=== PATIENT | female | born 1950 | race Caucasian/White ===

== ENCOUNTER 2016-08-28 16:12 | Emergency (ER) | payer BC ==
--- NOTE | 2016-08-28 16:58 | ED Physician Documentation ---
PD HPI DYSPNEA - Stated complaint Stated Complaint: SOA - Chief complaint Chief Complaint: Resp - History obtained from History obtained from: Patient - History of Present Illness Timing - onset: How many days ago (10) Timing - onset during: Light activity Timing - duration: Days (10) Timing - details: Gradual onset Inciting event(s): URI Improved by: O2 (at home, has usual use 2 lpm at night, but can use it during day if she wants.), Inhaler/neb Review of Systems Constitutional: reports: Chills, Myalgias, Fatigue. denies: Fever Nose: reports: Congestion. denies: Rhinorrhea / runny nose Throat: denies: Sore throat Cardiac: denies: Chest pain / pressure Respiratory: reports: Dyspnea, Cough, Wheezing Skin: denies: Rash, Lesions Neurologic: denies: Generalized weakness, Focal weakness, Numbness PD PAST MEDICAL HISTORY - Past Medical History Cardiovascular: Hypertension, High cholesterol, [place] Respiratory: COPD, Emphysema, Other Neuro: None Endocrine/Autoimmune: Type 2 diabetes GI: GERD : Incontinence HEENT: Chronic vision loss Psych: Depression, Anxiety Musculoskeletal: Osteoarthritis - Past Surgical History General: Colonoscopy, EGD Cardiovascular: Coronary stent, Cardiac catheterization HEENT: Tonsil/Adenoidectomy - Present Medications Home Medications: Ambulatory Orders Medication Instructions Recorded Confirmed Aspirin [Aspir-Low] 81 mg PO DAILY 04/27/15 08/11/16 Losartan Potassium 50 mg PO DAILY 04/27/15 08/11/16 Metformin HCl 1,000 mg PO BID 04/27/15 08/11/16 Metoprolol Tartrate 50 mg PO BID 04/27/15 08/11/16 Niacin (Inositol Niacinate) 750 mg PO DAILY 04/27/15 08/11/16 [Niacin 500 mg Capsule] Simvastatin 80 mg PO DAILY 04/27/15 08/11/16 Cyanocobalamin (Vitamin B-12) 1 tab PO DAILY 06/04/15 08/11/16 [Vitamin B12] Folic Acid 1 tab PO DAILY 06/04/15 08/11/16 Lidocaine Patch 5% [Lidoderm Patch] 1 each TOP DAILY PRN #10 patch 06/25/1512/20 Fentanyl [Duragesic] 25 mcg TOP DAILY PRN 06/26/15 08/11/16 LORazepam [Ativan] 1 tab PO Q6HR PRN 06/26/15 08/11/16 Ondansetron Odt [Zofran Odt] 1 tab PO Q4HR PRN 06/26/15 08/11/16 Azithromycin [Zithromax] 250 mg PO DAILY #6 tablet 08/28/16 Dexamethasone [Decadron] 4 mg PO DAILY #5 tablet 08/28/16 guaiFENesin/CODEINE [Robitussin AC] 10 ml PO Q6H PRN #240 ml 08/28/16 - Allergies Allergies/Adverse Reactions: Allergies Allergy/AdvReac Type Severity Reaction Status Date / Time No Known Drug Allergies Allergy Verified 08/28/16 16:21 - Social History Does the pt smoke?: Yes Smoking Status: Current every day smoker Does the pt drink ETOH?: No Does the pt have substance abuse?: No - Immunizations Immunizations: TDAP >10years/unknown - POLST Patient has POLST: No PD ED PE NORMAL - Vitals Vital signs reviewed: Yes (sats lowest w 88% on RA, improves with just 2 lpm a ) - General General: Alert and oriented X 3, No acute distress, Well developed/nourished - HEENT HEENT: Atraumatic, Ears normal, Pharynx benign - Neck Neck: Supple, no meningeal sign, No adenopathy - Cardiac Cardiac: RRR, No murmur - Respiratory Respiratory: Clear bilaterally - Female Female : Deferred, Pt declined Results - Vitals Vitals: Oxygen O2 Source Room air Oxygen Flow Rate 2 - Labs Labs: Laboratory Tests 08/28/16 08/28/16 08/28/16 15:33 15:33 15:33 WBC 12.7 H RBC 4.46 Hgb 13.9 Hct 41.6 MCV 93.3 MCH 31.2 H MCHC 33.4 RDW 14.9 Plt Count 266 MPV 8.0 Neut # 8.0 H Lymph # 3.5 [place] # 0.8 Eos # 0.3 Baso # 0.1 Absolute Nucleated RBC 0.00 Nucleated RBCs 0.0 Sodium 137 Potassium 4.1 Chloride 101 Carbon Dioxide 26 Anion Gap 10.0 BUN 7 Creatinine 0.6 Estimated GFR (MDRD) 101 Glucose 207 H Calcium 9.3 Magnesium 1.9 Total Bilirubin 0.4 AST 16 ALT 17 Alkaline Phosphatase 101 Troponin I < 0.04 B-Natriuretic Peptide Total Protein 7.7 Albumin 4.0 Globulin 3.7 Albumin/Globulin Ratio 1.1 Lipase 20 L 08/28/16 15:33 WBC RBC Hgb Hct MCV MCH MCHC RDW Plt Count MPV Neut # Lymph # [place] # Eos # Baso # Absolute Nucleated RBC Nucleated RBCs Sodium Potassium Chloride Carbon Dioxide Anion Gap BUN Creatinine Estimated GFR (MDRD) Glucose Calcium Magnesium Total Bilirubin AST ALT Alkaline Phosphatase Troponin I B-Natriuretic Peptide 37 Total Protein Albumin Globulin Albumin/Globulin Ratio Lipase - Rads (name of study) chest Radiology: Prelim report reviewed (no infiltrates) PD MEDICAL DECISION MAKING - ED course Complexity details: reviewed results (no infiltrates), considered differential ( wheezing improved with neb. Has COPD. Cough symptoms, likely viral but mor likely to benefit from abx given the COPD. initial sats 88% but improved with neb, and patient has nebulizer with Albuterol and also home oxygen for at nights. ), d/w patient Departure - Departure Disposition: Home, Self Care Clinical Impression: Bronchitis, Acute exacerbation of COPD with asthma Condition: Stable Record reviewed to determine appropriate education?: Yes Instructions: ED Upper Resp Infec Abx Tx Follow-Up: Andres Mancera MD [Primary Care Provider] - Prescriptions: Dexamethasone [Decadron] 4 mg PO DAILY #5 tablet guaiFENesin/CODEINE [Robitussin AC] 10 ml PO Q6H PRN #240 ml PRN Reason: Cough Azithromycin [Zithromax] 250 mg PO DAILY #6 tablet Comments: Use your Albuterol nebulizer 4 times daily at least, for 7-10 days, and added times as needed for wheezing. Zithromax and Decadron for 5 more days as directed. Add cough medication if needed. Home oxygen as you feel needed during the day and as usual at night. Recheck/return if worsening or if not improved over the next few days. Discharge Date/Time: 08/28/16 18:49
[2016-08-28] MEDS ORDERED: IPRATROPIUM/ALBUTEROL 3 ML NEB INH STA (17:10)
[2016-08-28] MEDS ORDERED: DEXAMETHASONE 10 MG/ML VIAL IVP STA (17:11)
[2016-08-28] MEDS ORDERED: IPRATROPIUM/ALBUTEROL 3 ML NEB INH ONE (17:16)
[2016-08-28] MEDS ORDERED: DEXAMETHASONE 10 MG/ML VIAL ONE (17:18)
[2016-08-28 17:47] LABS: BASOPHILS # (AUTO) 0.1 10^3/uL (0.0-0.1); BASOPHILS % (AUTO) 0.7 %; EOSINOPHILS # (AUTO) 0.3 10^3/uL (0.0-0.7); EOSINOPHILS % (AUTO) 2.6 %; HCT - HEMATOCRIT 41.6 % (37.0-47.0); HGB - HEMOGLOBIN 13.9 g/dL (12.0-16.0); LYMPHOCYTES # (AUTO) 3.5 10^3/uL (1.5-3.5); LYMPHOCYTES % (AUTO) 27.2 %; MEAN CORPUSCULAR HEMOGLOBIN 31.2 pg (27.0-31.0); MEAN CORPUSCULAR HGB CONC 33.4 g/dL (32.0-36.0); MEAN CORPUSCULAR VOLUME 93.3 fL (81.0-99.0); MONOCYTES # (AUTO) 0.8 10^3/uL (0.0-1.0); MONOCYTES % (AUTO) 6.6 %; NEUTROPHILS % (AUTO) 62.9 %; RED BLOOD COUNT 4.46 10^6/uL (4.20-5.40); RED CELL DISTRIBUTION WIDTH 14.9 % (12.0-15.0); UNCORRECTED WHITE BLOOD COUNT 12.7 x10^3/uL; WHITE BLOOD COUNT 12.7 x10^3/uL (4.8-10.8)
--- NOTE | 2016-08-28 17:57 | XRAY Preliminary Report ---
Exam: XR Chest 2 View PA/LAT IMPRESSION: 1. Increased interstitial markings with peribronchial cuffing bilaterally can be seen in setting of r eactive airways disease, bronchitis and viral infection. 2. Decreased consolidation in the right lung apex with persistent fibrosis and upward retraction of t he right hilum. 3. No new focal consolidation. [facility] SITE ID: [id number]
[2016-08-28 17:59] LABS: ALBUMIN/GLOBULIN RATIO 1.1 (1.0-2.2); BILIRUBIN,TOTAL 0.4 mg/dL (0.2-1.0); CALCIUM 9.3 mg/dL (8.5-10.3); CREATININE 0.6 mg/dL (0.4-1.0); MAGNESIUM 1.9 mg/dL (1.7-2.8); POTASSIUM 4.1 mmol/L (3.5-5.0); TOTAL PROTEIN 7.7 g/dL (6.7-8.2)
--- NOTE | 2016-08-28 18:00 | XRAY Report ---
EXAM: CHEST RADIOGRAPHY EXAM DATE: 08/28/2016 05:28 PM. CLINICAL HISTORY: Cough and dyspnea. COMPARISON: Chest radiograph dated 01/07/2016. TECHNIQUE: 2 views. FINDINGS: Lungs/Pleura: Decreased consolidation in the right lung apex. Scattered increased interstitial markin gs throughout both lungs with subtle peribronchial cuffing. No new focal consolidation. No pleural ef fusion. No pneumothorax again demonstrated is up under traction of the right hilum.. Mediastinum: Heart and mediastinal contours are unremarkable. Other: Left-sided Port-A-Cath is similar in position. IMPRESSION: 1. Increased interstitial markings with peribronchial cuffing bilaterally can be seen in setting of r eactive airways disease, bronchitis and viral infection. 2. Decreased consolidation in the right lung apex with persistent fibrosis and upward retraction of t he right hilum. 3. No new focal consolidation. [facility] Referring Provider Line: [phone] SITE ID: [id number]
[2016-08-28] MEDS ORDERED: AZITHROMYCIN 250 MG TABLET PO STA (18:44)
[2016-08-28] MEDS ORDERED: AZITHROMYCIN 250 MG TABLET PO ONE (18:45)
[2016-08-28 18:46] VITALS: BP 109/69
== END 2016-08-28 18:49 | disposition home or self-care (01) ==
LOC: ED 16:12
DX: J44.1 Chronic obstructive pulmonary disease with (acute) exacerbation (principal); Z99.81 Dependence on supplemental oxygen; I10 Essential (primary) hypertension; I25.2 Old myocardial infarction; E11.9 Type 2 diabetes mellitus without complications; F17.200 Nicotine dependence, unspecified, uncomplicated; Z95.5 Presence of coronary angioplasty implant and graft; Z79.82 Long term (current) use of aspirin; Z79.84 Long term (current) use of oral hypoglycemic drugs
CPT/HCPCS: 36415; 71020; 80053; 83690; 83735; 83880; 84484; 85025; 94640; 94664; 96374; 99284; A9270; J7620

== ENCOUNTER 2017-01-03 10:36 | Emergency (ER) | payer BC ==
[2017-01-03] MEDS ORDERED: VANCOMYCIN INJ 1 GM in SODIUM CHLORIDE 0.9% 250 ML IV STA (12:47)
[2017-01-03] MEDS ORDERED: PIPERACILLIN/TAZOBACTAM 3.375 GM in SODIUM CHLORIDE 0.9% MINIBAG 100 ML IV STA (12:47)
[2017-01-03 13:32] LABS: BASOPHILS # (AUTO) 0.1 10^3/uL (0.0-0.1); BASOPHILS % (AUTO) 0.5 %; EOSINOPHILS # (AUTO) 0.4 10^3/uL (0.0-0.7); EOSINOPHILS % (AUTO) 3.3 %; HCT - HEMATOCRIT 36.4 % (37.0-47.0); HGB - HEMOGLOBIN 12.4 g/dL (12.0-16.0); LYMPHOCYTES # (AUTO) 2.6 10^3/uL (1.5-3.5); LYMPHOCYTES % (AUTO) 23.3 %; MEAN CORPUSCULAR HGB CONC 34.2 g/dL (32.0-36.0); MEAN CORPUSCULAR VOLUME 90.6 fL (81.0-99.0); MONOCYTES # (AUTO) 0.6 10^3/uL (0.0-1.0); MONOCYTES % (AUTO) 5.8 %; NEUTROPHILS # (AUTO) 7.4 10^3/uL (1.5-6.6); NEUTROPHILS % (AUTO) 67.1 %; RED BLOOD COUNT 4.01 10^6/uL (4.20-5.40); RED CELL DISTRIBUTION WIDTH 14.2 % (12.0-15.0); UNCORRECTED WHITE BLOOD COUNT 11.1 x10^3/uL; WHITE BLOOD COUNT 11.1 x10^3/uL (4.8-10.8)
[2017-01-03 13:40] LABS: ALBUMIN/GLOBULIN RATIO 0.9 (1.0-2.2); BILIRUBIN,TOTAL 0.5 mg/dL (0.2-1.0); CALCIUM 8.7 mg/dL (8.5-10.3); CREATININE 0.7 mg/dL (0.4-1.0); POTASSIUM 4.1 mmol/L (3.5-5.0); TOTAL PROTEIN 7.4 g/dL (6.7-8.2)
[2017-01-03] MEDS ORDERED: VANCOMYCIN 1 GM VIAL ONE (14:01)
[2017-01-03] MEDS ORDERED: SODIUM CHLORIDE FLUSH 0.9% 10 ML SYRINGE IVP ONE (14:01)
--- NOTE | 2017-01-03 14:24 | ED Physician Documentation ---
PD HPI SKIN - Stated complaint Stated Complaint: GROWTH UNDER BOTH ARMS - Chief complaint Chief Complaint: Wound - History obtained from History obtained from: Patient - History of Present Illness Timing - onset: How many days ago (3) Timing - duration: Days (3) Timing - details: Gradual onset, Still present Location: Chest Quality / character: Painful, Discolored, Swelling Associated symptoms: No: Fever, Myalgias, Joint pain, Headache, Facial swelling , Dyspnea, Abd pain, N/V/D, Urinary sx Contributing factors: Other (has ongoing treatment for small cell lung CA) Similar symptoms before: Has not had sx before Recently seen: Clinic (is getting regular visits at the [facility] [place] clinic last seen 2 weeks ago and has staging CT the week after next.) Review of Systems Constitutional: denies: Fever Eyes: denies: Decreased vision Ears: denies: Ear pain Nose: denies: Congestion Throat: denies: Sore throat Cardiac: denies: Chest pain / pressure, Palpitations Respiratory: reports: Dyspnea, Cough GI: denies: Abdominal Pain, Nausea, Vomiting : denies: Dysuria, Frequency Skin: reports: Lesions Musculoskeletal: denies: Neck pain, Back pain, Extremity pain PD PAST MEDICAL HISTORY - Past Medical History Past Medical History: Yes Cardiovascular: Hypertension, High cholesterol, [place] Respiratory: COPD, Emphysema, Other Neuro: None Endocrine/Autoimmune: Type 2 diabetes GI: GERD : Incontinence HEENT: Chronic vision loss Psych: Depression, Anxiety Musculoskeletal: Osteoarthritis Other Past Medical History: lung cancer - Past Surgical History Past Surgical History: Yes General: Colonoscopy, EGD Cardiovascular: Coronary stent, Cardiac catheterization HEENT: Tonsil/Adenoidectomy - Present Medications Home Medications: Ambulatory Orders Medication Instructions Recorded Confirmed Aspirin [Aspir-Low] 81 mg PO DAILY 04/27/15 01/03/17 Losartan Potassium 50 mg PO DAILY 04/27/15 01/03/17 Metformin HCl 1,000 mg PO BID 04/27/15 01/03/17 Metoprolol Tartrate 50 mg PO BID 04/27/15 01/03/17 Niacin (Inositol Niacinate) 750 mg PO DAILY 04/27/15 01/03/17 [Niacin 500 mg Capsule] Simvastatin 80 mg PO DAILY 04/27/15 01/03/17 Cyanocobalamin (Vitamin B-12) 1 tab PO DAILY 06/04/15 01/03/17 [Vitamin B12] Folic Acid 1 tab PO DAILY 06/04/15 01/03/17 Lidocaine Patch 5% [Lidoderm Patch] 1 each TOP DAILY PRN #10 patch 06/25/1504/21 Fentanyl [Duragesic] 25 mcg TOP DAILY PRN 06/26/15 01/03/17 LORazepam [Ativan] 1 tab PO Q6HR PRN 06/26/15 01/03/17 Ondansetron Odt [Zofran Odt] 1 tab PO Q4HR PRN 06/26/15 01/03/17 HYDROcod/ACETAM 5/325 [Berry 5/325] 1 - 2 ea PO Q6H PRN #15 tablet 01/03/17 Sulfamethoxazole/Trimethoprim 1 each PO BID #14 tablet 01/03/17 [Sulfamethoxazole-Tmp Ds Tablet] - Allergies Allergies/Adverse Reactions: Allergies Allergy/AdvReac Type Severity Reaction Status Date / Time No Known Drug Allergies Allergy Verified 08/28/16 16:21 - Social History Does the pt smoke?: Yes Smoking Status: Current every day smoker Does the pt drink ETOH?: No Does the pt have substance abuse?: No - Immunizations Immunizations: TDAP >10years/unknown - POLST Patient has POLST: No PD ED PE NORMAL - Vitals Vital signs reviewed: Yes - General General: Well developed/nourished, Other (The patient appears to be in pain. ) - HEENT HEENT: Atraumatic, PERRL, EOMI - Neck Neck: Supple, no meningeal sign, No bony TTP - Cardiac Cardiac: RRR, No murmur - Respiratory Respiratory: No respiratory distress, Clear bilaterally, Other (To the chest wall laterally nearly in the axilla are 2 areas that are erythematous, tender and firm. There is surrounding erythema but confined to the margins of the mass. There is a much smaller mass in the right axilla and this is less tender and without erythema. ) - Abdomen Abdomen: Soft, Non tender - Back Back: No CVA TTP, No spinal TTP - Derm Derm: Normal color, Warm and dry, No rash - Extremities Extremities: No deformity, No edema Results - Vitals Vitals: Vital Signs - 24 hr 01/03/17 01/03/17 10:40 14:08 Temperature 36.2 C L Heart Rate 108 H 88 Respiratory 22 18 Rate Blood Pressure 139/76 H 142/66 H O2 Saturation 100 95 Oxygen O2 Source Room air - Labs Labs: Laboratory Tests 01/03/17 01/03/17 13:10 13:10 WBC 11.1 H RBC 4.01 L Hgb 12.4 Hct 36.4 L MCV 90.6 MCH 31.0 MCHC 34.2 RDW 14.2 Plt Count 215 MPV 8.0 Neut # 7.4 H Lymph # 2.6 [place] # 0.6 Eos # 0.4 Baso # 0.1 Absolute Nucleated RBC 0.00 Nucleated RBC % 0.0 Sodium 135 Potassium 4.1 Chloride 98 L Carbon Dioxide 26 Anion Gap 11.0 BUN 9 Creatinine 0.7 Estimated GFR (MDRD) 84 L Glucose 178 H Calcium 8.7 Total Bilirubin 0.5 AST 13 ALT 14 Alkaline Phosphatase 101 Total Protein 7.4 Albumin 3.5 Globulin 3.9 Albumin/Globulin Ratio 0.9 L Lipase 22 Procedures - Bedside sono Bedside sono by EMP: With bedside ultrasound the area of these masses is interrogated and there is no fluid collection. There is swollen tender tissue. There are 2 masses that are evaluated in the axilla. PD MEDICAL DECISION MAKING - ED course Complexity details: reviewed results, re-evaluated patient, considered differential, d/w patient ED course: 66-year-old female with what appear to be abscesses in the left axilla. The abscesses do not appear right. These have happened spontaneously and I do not see entrance wound or other contributing factors. She does appear to be able to mount a white blood cell count and does appear immunocompetent today. Here in the emergency department she is given intravenous vancomycin and Zosyn and will start her on some sulfa. I discussed with this with the patient including the ripening process of abscess and reasons to return to the emergency department. Departure - Departure Disposition: 01 Home, Self Care Clinical Impression: Abscess of axilla, left Condition: Stable Instructions: ED Staph Infec Abx Tx Only Follow-Up: Andres Mancera MD [Primary Care Provider] - Prescriptions: HYDROcod/ACETAM 5/325 [Berry 5/325] 1 - 2 ea PO Q6H PRN #15 tablet PRN Reason: Pain Sulfamethoxazole/Trimethoprim [Sulfamethoxazole-Tmp Ds Tablet] 1 each PO BID # 14 tablet
[2017-01-03 15:54] VITALS: BP 137/84
== END 2017-01-03 16:08 | disposition home or self-care (01) ==
LOC: ED 10:36
DX: L02.412 Cutaneous abscess of left axilla (principal); Z85.118 Personal history of other malignant neoplasm of bronchus and lung; I10 Essential (primary) hypertension; E78.00 Pure hypercholesterolemia, unspecified; I25.2 Old myocardial infarction; J44.9 Chronic obstructive pulmonary disease, unspecified; E11.9 Type 2 diabetes mellitus without complications; Z79.84 Long term (current) use of oral hypoglycemic drugs; K21.9 Gastro-esophageal reflux disease without esophagitis; M19.90 Unspecified osteoarthritis, unspecified site; Z79.82 Long term (current) use of aspirin; F17.200 Nicotine dependence, unspecified, uncomplicated
CPT/HCPCS: 36415; 80053; 83690; 85025; 87040; 96365; 96367; 99283; 99284; J3370

== ENCOUNTER 2018-04-19 08:00 | Outpatient (CLI) | payer MEDICARE, OTHER ==
[2018-04-19 15:22] LABS: HB2 TOTAL 11.4 g/dL; HEMOGLOBIN A1C 0.7 g/dL; HEMOGLOBIN A1C % 7.8 % (4.6-6.2)
== END 2018-04-19 23:59 | disposition home or self-care (01) ==
LOC: LAB.R 08:00
PROVIDERS: ATTEND Family Medicine
DX: E11.21 Type 2 diabetes mellitus with diabetic nephropathy (principal)
CPT/HCPCS: 83036

== ENCOUNTER 2019-01-23 09:56 | Outpatient (CLI) | payer MEDICARE, OTHER ==
[2019-01-23] MEDS ORDERED: IOVERSOL 320 50 ML VIAL ONE (10:12)
[2019-01-23] MEDS ORDERED: IOVERSOL 320 100 ML VIAL IVP ONE ×2 (10:12→12:42)
[2019-01-23] MEDS ORDERED: IOVERSOL 320 50 ML VIAL PO ONE (12:42)
--- NOTE | 2019-01-23 16:13 | CT Report ---
Reason: LUNG CA Procedure Date: 01/23/2019 Accession Number: [id number] / [id number] Procedure: CT - CHEST W CPT Code: FULL RESULT: EXAM: CT CHEST EXAM DATE: 01/23/2019 11:15 AM. CLINICAL HISTORY: LUNG CA. For follow-up COMPARISONS: ABDOMEN/PELVIS W09/26/2018 12:20 PM CHEST W09/26/2018 12:20 PM CHEST W09/26/2018 11:09 AM CHEST W04/07/2018 1:07 PM. TECHNIQUE: Routine helical CT imaging was performed through the chest. IV contrast: None. Reconstructions: Coronal and sagittal. In accordance with CT protocol optimization, one or more of the following dose reduction techniques were utilized for this exam: automated exposure control, adjustment of mA and/or KV based on patient size, or use of iterative reconstructive technique. FINDINGS: Lungs/Pleura: Persistent to mildly progressed right upper lobe collapse. 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 Bilateral nodules again seen, some are stable, others have decreased, and some appear to be new. Tiny new nodular densities right upper lobe, for example 3/68 lateral 3 mm, 3/103 anterior 3 mm, 3/115 posterior medial 3 mm. Three stable nodular densities left upper lobe /72, maximum size 5 mm. Stable to slightly increased nodule 3/114 5 mm. Stable posterior left lung nodule 4 mm 3/154. A few scattered groundglass opacities are noted. No pleural effusion or pneumothorax. Mediastinum: Stable small mediastinal lymph nodes. Largest lymph node right paratracheal 1.5 cm 05/28. Scattered smaller lymph nodes also stable. Mild mediastinal shift to the right as before. Atherosclerotic vascular change as before. Bones: Stable partial collapse T8. Stable degenerative changes in the spine. Other: Left Port-A-Cath unchanged. IMPRESSION: Persistent to mildly progressed right upper lobe collapse compared with 09/26/2018. . Minor variation in size and number of scattered bilateral nodules, perhaps technical, the largest left upper lobe 5 mm. Few scattered groundglass opacities. Stable mediastinal lymph nodes and partial T8 collapse. No significant new findings. [facility]
--- NOTE | 2019-01-23 16:28 | CT Report ---
Reason: LUNG CA Procedure Date: 01/23/2019 Accession Number: [id number] / [id number] Procedure: CT - Abdomen/Pelvis W CPT Code: FULL RESULT: EXAM: CT ABDOMEN AND PELVIS EXAM DATE: 01/23/2019 11:15 AM. CLINICAL HISTORY: LUNG CA. COMPARISONS: ABDOMEN/PELVIS W/ 09/26/2018 12:20 PM. TECHNIQUE: Routine helical CT imaging was performed through the abdomen and pelvis. IV contrast: OPTI 320 100ML. Enteric contrast: No. Reconstructions: Coronal and sagittal. In accordance with CT protocol optimization, one or more of the following dose reduction techniques were utilized for this exam: automated exposure control, adjustment of mA and/or KV based on patient size, or use of iterative reconstructive technique. FINDINGS: Liver: Normal. No masses. Gallbladder/Bile Ducts: Unremarkable. Spleen: Normal. Pancreas: Normal. Adrenal Glands: Stable 1.5 x 2.3 cm right adrenal nodule. Stable mild fullness left adrenal left adrenal. Kidneys: Normal. No masses or hydronephrosis. Peritoneal Cavity/Bowel: No free fluid, free air or pathologic adenopathy. Stable subcentimeter retroperitoneal lymph nodes. Stable small intraperitoneal lymph nodes for example 3/42 1 cm right abdomen No masses or acute inflammatory process. The appendix is well visualized and normal. Pelvic Organs: Prominent pelvic lymph nodes measure less than 1 cm short axis and appear unchanged, for instance 3/59 left iliac and 3/61 and 62 right iliac. Unchanged uterus and bladder. Vasculature: No aneurysms. Atherosclerotic change Bones: Degenerative change. Stable T8 compression deformity Other: None. IMPRESSION: Stable abdomen and pelvic CT compared with 2418. A few scattered nonspecific lymph nodes are again seen without definite pathologic adenopathy. Stable adrenal enlargement. No new findings. [facility]
== END 2019-01-23 09:57 | disposition home or self-care (01) ==
LOC: DI 09:56
PROVIDERS: ATTEND Internal Medicine Hematology & Oncology
DX: C34.11 Malignant neoplasm of upper lobe, right bronchus or lung (principal); C77.9 Secondary and unspecified malignant neoplasm of lymph node, unspecified; J98.19 Other pulmonary collapse
CPT/HCPCS: 71260; 74177

== ENCOUNTER 2019-04-18 10:16 | Outpatient (CLI) | payer MEDICARE, OTHER ==
--- NOTE | 2019-04-18 17:41 | CONSULTATION NOTE ---
Palliative Care Consultation - Referral Referring Provider: Yesenia Chase PA-C Time of Visit: 3112-0178 [place] [facility] [place] Reason: Depression/Met Lung CA/Dyspnea - Information Sources Records reviewed: Previous records reviewed History/Review of Systems obtained from: Patient Exam limitations: Clinical condition (It is snowing; patient anxious to get on road so visit limited) - History of Present Illness Brief History of Present Illness: This is a 68-year-old woman with [id number] history of smoking, has been smoking for over 50 years. She presented originally in 2016 with shortness of breath and a CT scan was obtained and showed a very large right upper lobe obstructing mass, and enlarged mediastinal lymph nodes. There was also evidence of a left upper lobe lesion and right adrenal nodules. She was transferred to [facility] and had a biopsy that showed malignant cells consistent with abhijit ocarcinoma, and received systemic chemotherapy as well as palliative radiation to her right lung. She has been on persistent oxygen long-term, for underlying COPD. She was started on nivolumab in 2017. Has been receiving this every 2 weeks, recently got a boost with radiation for one-time treatment, and has recently completed on 04/11 restaging. That overall show her disease is mostly stable, with a few increasd left lung nodules, but has not symptomatically worsened. Patient at baseline, is quite compromised respiratory status [place]. Her most impactful symptom actually gives her cough, with intermittent coughing spasms, usually productive of brown sputum. She is only able to ambulate short distances, has poor activity tolerance, and does spend most of her time sedentary. She does have diabetes, COPD, and urinary incontinence that impacts her qualilty of life. She reports intermittent lower extremity edema, which exacerbates her diabetic peripheral neuropathy, and increased trouble with insomnia. Medical/Surgical History - Past Medical History Cardiovascular: reports: Congestive heart failure, Hypertension, High cholesterol, OR Respiratory: reports: COPD, Emphysema, Other (lung cancer; oxygen dependent) Neuro: Peripheral neuropathy Endocrine/Autoimmune: reports: Type 2 diabetes GI: reports: GERD : reports: Incontinence HEENT: reports: Chronic vision loss Psych: reports: Depression, Anxiety Musculoskeletal: reports: Osteoarthritis, Fatigue, Chronic back pain MRSA Hx?: No - Past Surgical History General: reports: Colonoscopy, EGD Cardiovascular: reports: Coronary stent, Cardiac catheterization HEENT: reports: Tonsil/Adenoidectomy Social History - Living Situation Living arrangement: At home Living Situation: With friend(s) Support System: Patient has a roommate Olivia, who does help with laundry, transportation, and provides significant amount of support. She does not know how she would cope without her assistance. She met her through her daughter, she babysat for her daughter. She has lived with her daughter briefly, but this did not work out. [place], she does very much enjoy her granddaughter Juan Ramon, who is 5 years of age, she does take her every other weekend for an overnight. She reports this is what makes life worth living. 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 Family History - Family History Family History: Mother: (mother of old age at 94), Sister: Alive and Well (daughter; has three sisers and brother who are still living; ), Brother: Alive and Well, Alcoholism (one brother of ETOH/diabetes), Other family: Alive and Well Medications/Allergies - Medications Home Medications: Ambulatory Orders Medication Instructions Recorded Confirmed Aspirin [Aspir-Low] 81 mg PO DAILY 04/27/15 04/18/19 Losartan Potassium 50 mg PO DAILY 04/27/15 04/18/19 Metformin HCl 1,000 mg PO BID 04/27/15 04/18/19 Metoprolol Tartrate 50 mg PO BID 04/27/15 04/18/19 Simvastatin 80 mg PO DAILY 04/27/15 04/18/19 Cyanocobalamin (Vitamin B-12) 1 tab PO DAILY 06/04/15 04/18/19 [Vitamin B12] Lidocaine Patch 5% [Lidoderm Patch] 1 each TOP DAILY PRN #10 patch 06/25/15 04/18/19 Ondansetron Odt [Zofran Odt] 1 tab PO Q4HR PRN 06/26/15 04/18/19 Gabapentin 1 - 3 cap PO DAILY PM 05/31/18 04/18/19 Levothyroxine [Synthroid] 75 mcg PO DAILY 10/04/18 04/18/19 oxyCODONE [Roxicodone] 1 tab PO QPM PRN 01/24/19 04/18/19 Levofloxacin [Levaquin] 500 mg PO DAILY 02/21/19 04/18/19 Zolpidem [Ambien] 1 tab ORAL DAILY PM PRN 04/18/19 04/18/19 - Allergies Allergies/Adverse Reactions: Allergies Allergy/AdvReac Type Severity Reaction Status Date / Time No Known Drug Allergies Allergy Verified 04/18/19 08:58 Review of Systems - Constitutional Constitutional: reports: Fatigue, Weakness, Weight stable. denies: Fever, Chills - Eyes Eyes: reports: Vision loss, Other (teary eyes) - Ears, Nose & Throat Ears, Nose & Throat: reports: Nasal congestion, Dry mouth - Cardiovascular Cardiovascular: reports: Edema, Lightheadedness, Exertional dyspnea, Decr. exercise tolerance, Orthopnea. denies: Chest pain - Respiratory Respiratory: reports: Cough, Sputum production (brown), SOB at rest (oxygen at night), SOB with exertion - Gastrointestinal Gastrointestinal: reports: Constipation, Diarrhea, Good appetite - Genitourinary Genitourinary: reports: Frequency, Urgency, Incontinence - Musculoskeletal Musculoskeletal: reports: Stiffness, Limited range of motion, Muscle weakness - Integumentary Integumentary: reports: Dryness - Neurological Neurological: reports: General weakness - Psychiatric Psychiatric: reports: Depression, Anxiety - Endocrine Endocrine: reports: Diabetes type 2, Hypothyroidism (immunotherapy induced) - Hematologic/Lymphatic Hematologic/Lymphatic: reports: Anemia, Recurrent infections (treated recently with levaquin) - All Other Systems All Other Systems: reports: Reviewed and negative Physical Exam - Vital Signs Temperature: 96.5 C Pulse Rate: 78 Respiratory Rate: 18 Blood Pressure: 128/61 - Physical Exam General Appearance: positive: Mild distress, Anxious (about the snow) Eyes Bilateral: positive: Normal inspection Neck: positive: Other (rounded full face/neck) Cardiovascular: positive: Regular rate & rhythm Respiratory: positive: Wheezes, Rhonchi Abdomen: positive: Soft Skin: positive: Pallor Extremities: positive: Pedal edema (trace-1+ up to midcalf) Neurologic/Psychiatric: positive: Oriented x3, Weakness, Depressed mood/affect, Flat affect Palliative Care - POLST Patient has POLST: No Pain: Pain unchanged, Location (feet uses oxycodone at night with relief;) Tiredness/Fatigue: Severe (7-10) Drowsiness/Sedation: Moderate (4-6) Nausea: None Anorexia: Mild (1-3) Dyspnea: Severe (7-10) Depression: Moderate (4-6) Anxiety: Moderate (4-6) Sleep: Sleeps poorly (oncology started patient on ambien) - Palliative Care Discussion: Patient does understand the seriousness of her illness, that she is receiving palliative treatment and does expect to decline in the future. She is hopeful to "get every breath she can take" to be with her granddaughter Juan Ramon who is a 5 years. This is what gives her life meaning. 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 She does find her roommate Olivia kind and supportive. She feels like she is coping fairly well overall, though does admit to some persistent depressive feelings. Results - Lab Results Lab results reviewed: Yes Impression and Recommendations - Palliative Care Impression: This is a 68-year-old woman with metastatic lung adenocarcinoma, currently receiving nivolumab. She does have significant comorbidities including CHF, diabetes with peripheral neuropathy, lower extremity edema, history of CHF and OR. She does leave a fairly sedentary life, with moderate symptom burden. Palliative care to meet with patient for symptom management and anticipatory guidance including advanced care planning. Recommendations/Counseling Done: 1. Cough. Patient does present with scattered wheezes and rhonchi, reports persistent cough productive of brown sputum. Denies any chills or fever, has not worsened. She does have nebulizer available, encouraged to use to help loosen her secretions. Patiently recently treated with Levaquin, with some improvement. 2. Generalized weakness. Patient is quite sedentary mostly attributed both to her weakness as well as her dyspnea. Patient no longer able to bathe herself related to this. Will explore further if might benefit from home rehab, patient is quite distracted regarding weather and wanting to get on the road. 3. Depression. Patient does present with persistent feelings of depression and anxiety, related to her ongoing loss of independence and lifestyle changes as well as a serious this of her illness. Patient does identify some components of social support, will offer her further team members after exploring patient's preferences. 4. Advanced care planning. Patient does not have any advanced care planning documents, is interested and exploring these further, agreed to follow-up at next visit. Time Spent: 45 minutes with greater than 50% of this done in counseling regarding role of palliative care, initiating rapport, agreed for further follow-up at next clinic visit in the context of anticipatory guidance and advanced care planning
== END 2019-04-18 10:17 | disposition home or self-care (01) ==
LOC: PC 10:16
PROVIDERS: ATTEND Nurse Practitioner Adult Health
DX: Z51.5 Encounter for palliative care (principal); R05 Cough; R53.1 Weakness; R06.00 Dyspnea, unspecified; F32.9 Major depressive disorder, single episode, unspecified; F17.210 Nicotine dependence, cigarettes, uncomplicated; Z99.81 Dependence on supplemental oxygen; Z79.891 Long term (current) use of opiate analgesic; Z79.899 Other long term (current) drug therapy
CPT/HCPCS: 99204

== ENCOUNTER 2019-05-30 10:27 | Outpatient (CLI) | payer MEDICARE, OTHER ==
--- NOTE | 2019-05-30 13:57 | CONSULTATION NOTE ---
Palliative Care Follow Up - Referral Referring Provider: Yesenia Chase PA-C Time of Visit: [id number] [place] [facility] [place] Reason: LE edema/Peripheral neuropathy/Met Lung CA - Information Sources Records reviewed: Previous records reviewed History/Review of Systems obtained from: Patient Exam limitations: No limitations - History of Present Illness Update Brief HPI Update: This is a 68-year-old woman with metastatic lung cancer, originally diagnosed in 2016. She had presented with a right upper lobe obstructing mass, and large mediastinal lymph nodes, as well as left upper lobe lesion and right adrenal nodules. She has received systemic chemotherapy, as well as palliative radiation to her right lung. She has been on nivolumab since 2017, with recent radiation x1 to enhance immunotherapy on 02/22/2019. She receives this every 2 weeks, she is quite compromised at baseline related to her underlying COPD, and does recognize her ongoing decline particularly with her functional status, endurance, breathlessness and is very anxious regarding this. She does recognize the seriousness of her illness, and very hesitant to meet with palliative care. We did discuss at this point, we can just focus on quality of life issues, and she can set the pace regarding advanced care planning as this causes her anxiety and tearfulness. Her most bothersome symptom actually is her diabetic neuropathy. This is exacerbated by her lower extremity edema. She mostly is only able to be in her chair, walking short distances in the home. Unfortunately she does have 14 steps up to her apartment, she is currently looking for another living situation. She does have a significant urinary incontinence, and has been quite resistant to looking at diuretic use, as well as painful neuropathy can that has been problematic for any kind of compression. She does get some relief from the gabapentin, but is unable to escalate dose as it does cause her sedation. She does have severe shortness of breath, and intermittent coughing spasms. She is also quite concerned about her worsening vision loss, She has had poorly controlled diabetes, but she describes symptoms more consistent with cataracts. Since her only quality of life, is watching TV, doing her crossword puzzles, and reading this is been deteriorating. She would be interested in follow-up, as this is somewhat overwhelming, agreed palliative care with look into referral. Her stated goals, are to live as long as possible, she has the light of her life, which is her granddaughter Juan Ramon. She gets to have her every other weekend, she has good social support with her friend whom she currently is living with. [place], who provides practical support as well. Patient's past medical history includes CHF, diabetes with severe peripheral neuropathy, lower extremity edema, history of CHF and ID. Social History - Living Situation Living arrangement: At home Living Situation: With friend(s) Support System: She lives with her friend Olivia, who is her roommate. She does help with laundry, transportation, and provides a significant amount of support. They live in [place], are looking for another setting as this steps have become somewhat of a burden. 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 Patient's long-term been on her feet, and in the [employer] business. Medications/Allergies - Medications Home Medications: Ambulatory Orders Medication Instructions Recorded Confirmed Aspirin [Aspir-Low] 81 mg PO DAILY 04/27/15 05/30/19 Losartan Potassium 50 mg PO DAILY 04/27/15 05/30/19 Metformin HCl 1,000 mg PO DAILY 04/27/15 05/30/19 Metoprolol Tartrate 50 mg PO DAILY 04/27/15 05/30/19 Simvastatin 80 mg PO DAILY 04/27/15 05/30/19 Cyanocobalamin (Vitamin B-12) 1 tab PO DAILY 06/04/15 05/30/19 [Vitamin B12] Lidocaine Patch 5% [Lidoderm Patch] 1 each TOP DAILY PRN #10 patch 06/25/15 05/30/19 Ondansetron Odt [Zofran Odt] 1 tab PO Q4HR PRN 06/26/15 05/30/19 Levothyroxine [Synthroid] 75 mcg PO DAILY 10/04/18 05/30/19 oxyCODONE [Roxicodone] 1 tab PO QPM PRN 01/24/19 05/30/19 Zolpidem [Ambien] 1 tab ORAL DAILY PM PRN 04/18/19 05/30/19 Albuterol Oral Soln 1 amp INH Q6HR PRN 05/30/19 05/30/19 Albuterol Sulfate [Proair Hfa 2 puffs INH Q4HR PRN 05/30/19 05/30/19 Inhaler] Furosemide 20 mg PO DAILY MDD 40mgx3;20mg x4 05/30/19 05/30/19 days dc Levothyroxine [Synthroid] 75 mcg PO DAILY 05/30/19 05/30/19 Potassium Chloride 10 meq PO DAILY MDD for 7 days 05/30/19 05/30/19 Pregabalin 50 mg PO BID MDD titrating up 05/30/19 05/30/19 - Allergies Allergies/Adverse Reactions: Allergies Allergy/AdvReac Type Severity Reaction Status Date / Time No Known Drug Allergies Allergy Verified 05/16/19 11:00 Review of Systems - Constitutional Constitutional: reports: Fatigue, Weight stable. denies: Fever, Chills - Eyes Eyes: reports: Blurred vision, Vision loss, Other (worsening; would like referral) - Ears, Nose & Throat Ears, Nose & Throat: reports: Hoarseness - Cardiovascular Cardiovascular: reports: Edema, Exertional dyspnea, Decr. exercise tolerance - Respiratory Respiratory: reports: Cough (moist and frequent;), Sputum production (yellow), SOB at rest, SOB with exertion - Gastrointestinal Gastrointestinal: reports: Abdominal distention, Good appetite. denies: Constipation, Nausea - Genitourinary Genitourinary: reports: Frequency, Urgency, Incontinence - Musculoskeletal Musculoskeletal: reports: Stiffness, Limited range of motion, Muscle weakness - Integumentary Integumentary: reports: Dryness - Neurological Neurological: reports: General weakness, Numbness, Abnormal gait - Psychiatric Psychiatric: reports: Depression, Anxiety - Endocrine Endocrine: reports: Diabetes type 2 (does not check blood sugar; or follow diabetic diet), Hypothyroidism (reordered thyroid med) - Hematologic/Lymphatic Hematologic/Lymphatic: denies: Anemia - All Other Systems All Other Systems: reports: Reviewed and negative Physical Exam - Vital Signs Temperature: 36.9 C Pulse Rate: 80 Respiratory Rate: 20 Blood Pressure: 125/77 - Physical Exam General Appearance: positive: Alert, Mild distress, Anxious Eyes Bilateral: positive: Conjunctivae nml, Other (eyes water) ENT: negative: Dry mucous membranes Neck: positive: Trachea midline Cardiovascular: positive: Regular rate & rhythm Respiratory: negative: No respiratory distress (patient with breathlessness with conversation; cough moist/productive clear sputum during exam) Abdomen: positive: Nml bowel sounds, Distended, Obese Skin: positive: Pallor, Dryness Extremities: positive: Pedal edema Neurologic/Psychiatric: positive: Oriented x3, Weakness, Depressed mood/affect, Flat affect Palliative Care - POLST Patient has POLST: No POLST Status: Full Code Pain: Pain worsening, Location (Patient's pain is neuropathic in origin, mostly located in her feet, exacerbated by her edema. She does have pain and tingling in her fingers as well. Her limiting factor for her gabapentin, is sedation. She also presents with chronic pain in her lower back, worsening with standing, relieved with sitting. This appears more degenerative in nature, as a result of her work history. She does have lidocaine patches, which she "saves" until it is really bad, because of the cost.) Tiredness/Fatigue: Severe (7-10) Drowsiness/Sedation: Severe (7-10) Nausea: Mild (1-3) Anorexia: Mild (1-3) Dyspnea: Severe (7-10), Comment (Patient does have oxygen that she does wear at home,) Depression: Moderate (4-6) Anxiety: Moderate (4-6) Feelings of wellbeing/Perceived Quality of Life: Fair, Acceptable, Worsening Sleep: Sleep improved, Variable sleep pattern Constipation: No Performance Status: Patient is quite sedentary, can only tolerate ambulating short distances both related to fatigue and dyspnea. She does spend most of her time in her recliner, watching her games and doing her crosswords. She is having increased difficulty going up and down the stairs, she is able to bathe independently. She does have household support, meal prep is difficult as it is standing for long periods of time. - Palliative Care Discussion: Patient's Meena comes from spending time with her granddaughter, she has some brandi funny stories, she is obviously very fond and finds this her reason to keep going. She does her perceive herself as having deteriorated over this last year, particularly functionally. She does present with fairly high symptom burden, and has anxiety. She keeps pretty much to herself. Palliative care focusing on quality of life issues, and setting of rapport today. Results - Lab Results Lab results reviewed: Yes Lab and Imaging Results: Creat 0.8; GFR 72; glucose 195 Impression and Recommendations - Palliative Care Impression: This is a 68-year-old woman with metastatic lung cancer, currently receiving immunotherapy of nivolumab since 2017. She has had ongoing functional decline, presents with high symptom burden, and poorly controlled pain attributed to her diabetic peripheral neuropathy. Palliative care providing support for symptom management, and anticipatory guidance and advanced care planning as dictated by patient's wishes. Recommendations/Counseling Done: 1. Lower extremity edema. Patient has many barriers to be able to treat this, she does find it worsens her diabetic peripheral neuropathy. She does have urinary incontinence, worried about diuretics making this worse. She also cannot tolerate compression stockings. We did discuss in the context of her discomfort, trialing a week of diuretics, and using [place] wraps. If able to get her swelling down, may be able to manage ongoing with just compression. She was willing to give this a try, particularly as the discomfort has been worsening, she will try a furosemide 20 mg tabs, she has been instructed to take 2 tabs for 3 days, then 1 tab for 4 days. She is to obtain and apply compression as much as she can tolerate, to her feet and lower extremities on in the morning, off at nighttime. She is also been instructed to use thicker ointment or lotion on her feet. She is willing to give this a try, unclear if she will benefit or comply. She was ordered potassium 10 mEq daily for 1 week as well. 2. Diabetic peripheral neuropathy. Patient currently taking gabapentin 300 mg twice daily, would most likely benefit from dose escalation. Will transition over to pregabalin 50 mg, to be able to more quickly titrate to effect, may be able to dose escalate more easily and will see if better tolerated. It does come generic now, and has been found to be slightly more effective and diabetic neuropathy than gabapentin. 3. Blurry vision. This is been slow progression, not an acute change. Most likely contributed to by her diabetes, which is only moderately controlled. She does describe symptoms consistent though also possibly with cataracts. She would be interested in follow-up as this is a huge quality of life issue for her. This is what she does with her today, is watch TV, play her crosswords, and read. Will help facilitate appointment/referral. 4. Back pain. This appears to be chronic in nature, worsening with standing. Suspect more degenerative process and or stenosis. Patient has used lidocaine patches in the past, currently "saving" related to the cost. Provided information SalonPas 4% lidocaine patches are available at a more reasonable cost, with not much different in efficacy, encouraged to try if helpful. 5. Depression. Patient does present with persistent feelings of depression and anxiety related to her ongoing deterioration in her health, and changes in level of independence. She does identify social support, will offer further team members after continuing exploring patient's preferences. 6. Advanced care planning. Patient does not have any advanced care planning documents. Given her anxiety regarding this, we will continue to approach at patient's comfort level. This visit was spent on establishing further rapport Time Spent: 60 minutes with greater than 50% done in counseling regarding pain and symptom management and coordination of care.
== END 2019-05-30 10:28 | disposition home or self-care (01) ==
LOC: PC 10:27
PROVIDERS: ATTEND Nurse Practitioner Adult Health
DX: Z51.5 Encounter for palliative care (principal); R60.0 Localized edema; E11.42 Type 2 diabetes mellitus with diabetic polyneuropathy; H53.8 Other visual disturbances; M54.5 Low back pain; F32.9 Major depressive disorder, single episode, unspecified; F41.9 Anxiety disorder, unspecified; R53.83 Other fatigue; R32 Unspecified urinary incontinence; I50.9 Heart failure, unspecified; C79.9 Secondary malignant neoplasm of unspecified site; C34.91 Malignant neoplasm of unspecified part of right bronchus or lung; Z79.899 Other long term (current) drug therapy; Z79.891 Long term (current) use of opiate analgesic; Z79.82 Long term (current) use of aspirin; Z79.84 Long term (current) use of oral hypoglycemic drugs
CPT/HCPCS: 99215

== ENCOUNTER 2019-06-13 11:07 | Outpatient (CLI) | payer MEDICARE, OTHER ==
--- NOTE | 2019-06-13 17:09 | CONSULTATION NOTE ---
Palliative Care Follow Up - Referral Referring Provider: Yesenia Chase PA-C Time of Visit: [id number] [place] [facility] [place] Reason: Peripheral Neuropathy/Met Lung CA - Information Sources Records reviewed: Previous records reviewed History/Review of Systems obtained from: Patient Exam limitations: No limitations - History of Present Illness Update Brief HPI Update: Start totally inappropriate this is a 68-year-old woman with metastatic lung cancer, originally diagnosed in 2016. She has received systemic rate chemotherapy as well as palliative radiation to her right lung. She has been on nivolumab since 2017, with recent radiation x1 to enhance immunotherapy on 02/22/2019. She is receiving her nivolumab every 2 weeks, she is quite compromised at baseline related to her underlying COPD, has productive cough, shortness of breath and dyspnea. She also presents with lower extremity edema, but was willing to trial furosemide, with good results and has decreased her pain as well. She does recognize the seriousness of her illness, but is quite anxious to talk about any end-of-life planning, continue to work on building rapport and identifying goals of care. Her most bothersome symptom is still her diabetic neuropathy, worsens with lower extremity edema. We did transition her over from gabapentin to pregabalin, with some improvement with the hope to decrease her sedation. She reports she is sleeping better at night, 4 hours at a time, she is usually up to urinate. She also has significant back pain, worsening with standing, is only able to tolerate being up for short periods of time for household tasks. She is still using her oxycodone at bedtime, but sometimes her severity of pain is worsening, I did discuss can increase up to 3 times a day for rescue dosing. Her other concern is she does have rash, appears more eczema in nature, with flaking patchy areas. She also has significant dryness in her lower extremities. Patient does have underlying diabetes, though does not manage her blood sugars, and perceives food as a quality of life issue, so does not modify her diet much. Past medical history also includes CHF, diabetes with severe peripheral neuropathy, and history of [place]. Social History - Living Situation Living arrangement: At home Living Situation: With friend(s) Support System: Patient lives with her good friend and roommate Olivia. She provides her not only socialization, but also practical help with laundry, transportation, and shopping. 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 The schools have been off, she is not going to care for her this weekend, and she is trying to avoid large crowds or exposure to [place]. Medications/Allergies - Medications Home Medications: Ambulatory Orders Medication Instructions Recorded Confirmed Aspirin [Aspir-Low] 81 mg PO DAILY 04/27/15 06/13/19 Losartan Potassium 50 mg PO DAILY 04/27/15 06/13/19 Metformin HCl 1,000 mg PO DAILY 04/27/15 06/13/19 Metoprolol Tartrate 50 mg PO DAILY 04/27/15 06/13/19 Simvastatin 80 mg PO DAILY 04/27/15 06/13/19 Cyanocobalamin (Vitamin B-12) 1 tab PO DAILY 06/04/15 06/13/19 [Vitamin B12] Lidocaine Patch 5% [Lidoderm Patch] 1 each TOP DAILY PRN #10 patch 06/25/15 06/13/19 Levothyroxine [Synthroid] 75 mcg PO DAILY 10/04/18 06/13/19 oxyCODONE [Roxicodone] 1 tab PO QPM PRN 01/24/19 06/13/19 Zolpidem [Ambien] 1 tab ORAL DAILY PM PRN 04/18/19 06/13/19 Albuterol Oral Soln 1 amp INH Q6HR PRN 05/30/19 06/13/19 Albuterol Sulfate [Proair Hfa 2 puffs INH Q4HR PRN 05/30/19 06/13/19 Inhaler] Levothyroxine [Synthroid] 75 mcg PO DAILY 05/30/19 06/13/19 Potassium Chloride 10 meq PO DAILY MDD for 7 days 05/30/19 06/13/19 Pregabalin 50 mg PO BID MDD titrating up 05/30/19 06/13/19 - Allergies Allergies/Adverse Reactions: Allergies Allergy/AdvReac Type Severity Reaction Status Date / Time No Known Drug Allergies Allergy Verified 05/16/19 11:00 Review of Systems - Constitutional Constitutional: reports: Fatigue, Weight stable. denies: Fever, Chills - Eyes Eyes: reports: Blurred vision (has appointment at [facility] for eyes this Wednesday), Vision loss - Ears, Nose & Throat Ears, Nose & Throat: reports: Nasal congestion - Cardiovascular Cardiovascular: reports: Edema (improved with furosemide; would like to continue higher dose as decreases pain/discomfort), Exertional dyspnea, Decr. exercise tolerance - Respiratory Respiratory: reports: Cough, Sputum production (yellow/worse in am), Wheezing (intermittent has not needed neb for several months), Orthopnea, SOB at rest, SOB with exertion - Gastrointestinal Gastrointestinal: reports: Good appetite - Genitourinary Genitourinary: reports: Incontinence (doing better with timed toileting; tolerating diuretics) - Musculoskeletal Musculoskeletal: reports: Stiffness, Muscle weakness - Integumentary Integumentary: reports: Dryness, Nail changes - Neurological Neurological: reports: General weakness - Psychiatric Psychiatric: reports: Depression, Anxiety - Endocrine Endocrine: reports: Diabetes type 2 (does not track BS) - Hematologic/Lymphatic Hematologic/Lymphatic: denies: Recurrent infections - All Other Systems All Other Systems: reports: Reviewed and negative Physical Exam - Vital Signs Temperature: 36.3 C Pulse Rate: 75 Respiratory Rate: 18 Blood Pressure: 113/61 - Physical Exam General Appearance: positive: No acute distress, Alert Eyes Bilateral: positive: Normal inspection ENT: positive: No signs of dehydration, Other (edentulous) Neck: positive: Trachea midline, Other (full neck) Cardiovascular: positive: Regular rate & rhythm Respiratory: positive: Diminished in bases, Rales (crackles LLL). negative: No respiratory distress (breathless with any activity; wears oxygen at night only), Wheezes, Rhonchi Abdomen: positive: Soft, Nml bowel sounds, Obese Skin: positive: Pallor, Dryness Extremities: positive: Pedal edema (improved but still 1+ only half way up calf) Neurologic/Psychiatric: positive: Oriented x3, Mood/affect nml, Weakness Palliative Care - POLST Patient has POLST: No Pain: Pain improved, Location (patient taking pregablin 50 mg tid, with some improvement; with decrease swelling helping with LE discomfort as well; undecided but thinks may be less sedation), Severity (6/10) Tiredness/Fatigue: Severe (7-10) Drowsiness/Sedation: Severe (7-10) Nausea: None Anorexia: Mild (1-3) Dyspnea: Severe (7-10) (paces activities to manage) Depression: Moderate (4-6) Anxiety: Moderate (4-6) Feelings of wellbeing/Perceived Quality of Life: Fair, Acceptable, Improved Sleep: Sleep improved, Variable sleep pattern Constipation: Yes, Managed Performance Status: Patient does have very poor activity intolerance, this is impacted both by her dyspnea and her pain. She does have difficulty with prolonged standing. She is able to bathe independently, but does been most of her time in the recliner. She is having increased difficulty going up and down stairs, I would put her at a PPS of 60% - Palliative Care Discussion: Patient was actually willing to engage in some life review and reflective sharing regarding her self today. Patient has had significant loss, including her who a few years ago, of heart attack. She does feel like she is lived a good life, her apple of her eye is her granddaughter, she does find enjoyment in her day-to-day activities. She does recognize the seriousness of her illness, but is trying to find quality of life current situation, though does perceive it as deteriorating. Results - Lab Results Lab results reviewed: Yes Impression and Recommendations - Palliative Care Impression: This is a 68-year-old woman with metastatic lung cancer, currently receiving immunotherapy of nivolumab since 2017. She has had ongoing functional decline, presents with fairly high symptom burden, but more improvement of her pain for her diabetic peripheral neuropathy today. Palliative care continue provide support for symptom management and anticipatory guidance, advanced care planning this patient dictates. Recommendations/Counseling Done: 1. Lower extremity edema. Patient has had improvement, would like to actually continue on 40 mg of furosemide, we ordered medication as well as 20 mEq of potassium. She was unable to cough tolerate compression hose, but does feel like with the decreased swelling she is doing better. She has been instructed to use lotion and moisturizing on her lower feet, remain quite dry and irritated today. 2. Diabetic peripheral neuropathy. Patient was transition to pregabalin 50 mg 3 times daily with improvement, goal was to decrease her sedation and improve the efficacy. She has noted as small improvement in both, though remains quite sensitive, does have some numbness and balance issues in addition to pain. 3. Blurry vision. She does have an appointment with ophthalmology this Wednesday, she is quite pleased. 4. Back pain. This appears to be chronic in nature, worsens with standing and limiting her functional status. Patient is not interested in further therapy or work-up. 5. COPD. Patient continues with moist cough, reports productive most often in the a.m. Does use her oxygen at night, is not interested in further treatment. 6. Depression. Patient does present with persistent feelings of depression and anxiety related to her ongoing deterioration in her health, and changes in level of independence. She was more open to sharing today regarding her struggles, and her past coping, as well as her current social support. Counseling provided to normalize her current grief and loss process. 7. Advanced care planning. Patient does not have any advanced care planning documents, patient has significant anxiety regarding this, will continue to approach at patient's comfort level. She is starting to share more priorities and her goals, which is to live as long as possible to support her relationship with her granddaughter. 8. Rash. Patient does present with most likely rash consistent with eczema. She has used hydrocortisone on it in the past, she does have limited financial resources, will try triamcinolone prescription strength, instructed to apply thin layer twice a day for 2 weeks and then suspend. Time Spent: 60 minutes with greater than 50% of this done in counseling regarding pain and symptom management, and anticipatory guidance
== END 2019-06-13 11:08 | disposition home or self-care (01) ==
LOC: PC 11:07
PROVIDERS: ATTEND Nurse Practitioner Adult Health
DX: Z51.5 Encounter for palliative care (principal); J44.9 Chronic obstructive pulmonary disease, unspecified; E11.42 Type 2 diabetes mellitus with diabetic polyneuropathy; R32 Unspecified urinary incontinence; R53.1 Weakness; I50.9 Heart failure, unspecified; M54.9 Dorsalgia, unspecified; R60.0 Localized edema; H53.8 Other visual disturbances; R21 Rash and other nonspecific skin eruption; R53.83 Other fatigue; F41.8 Other specified anxiety disorders; C34.90 Malignant neoplasm of unspecified part of unspecified bronchus or lung; C79.9 Secondary malignant neoplasm of unspecified site; Z79.899 Other long term (current) drug therapy; Z79.891 Long term (current) use of opiate analgesic; Z79.84 Long term (current) use of oral hypoglycemic drugs; Z79.82 Long term (current) use of aspirin; Z99.81 Dependence on supplemental oxygen
CPT/HCPCS: 99215

== ENCOUNTER 2019-06-27 10:28 | Outpatient (CLI) | payer MEDICARE, OTHER ==
--- NOTE | 2019-06-27 17:10 | CONSULTATION NOTE ---
Palliative Care Follow Up - Referral Referring Provider: Yesenia Chase PA-C Time of Visit: 1030-11 [place] [facility] [place] Reason: Peripheral neuropathy/Met lung CA/Depression - Information Sources Records reviewed: Previous records reviewed History/Review of Systems obtained from: Patient Exam limitations: No limitations - History of Present Illness Update Brief HPI Update: This is a 68-year-old woman with metastatic lung cancer, originally diagnosed in 2016. She has received systemic chemotherapy as well as palliative radiation to her right lung. She has been on nivolumab since 2017, with 1 recent radiation treatment to enhance immunotherapy on 02/22/2019. She does receive her treatments every 2 weeks, she is quite compromised at baseline related to her underlying COPD, has ongoing productive cough, shortness of breath and dyspnea. She also has persistent lower extremity edema, though this has responded well to the furosemide with decreased swelling and improved her pain. Though she does feel that her pain could be better controlled, it is sharp and shooting, when her swelling is worse it increases, as well as with ambulation. She had been titrated over to pregabalin 50 mg 3 times daily, with room to titrate up to 300 total for 24 hours. Given the persistence of her pain, she would like to discuss that today. She is sleeping better at night, she is still using her oxycodone at bedtime, not needing it during the day. She has had response as far as her eczema to the triamcinolone cream, and does not check her blood sugars. Past medical history includes CHF, diabetes with severe peripheral neuropathy, history of [place]. Social History - Living Situation Living arrangement: At home Living Situation: With friend(s) Support System: Patient lives at home with her good friend and roommate Olivia. She not only provides her socialization, but also practical help. 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 She absolutely adores and lives for her granddaughter Juan Ramon, Medications/Allergies - Medications Home Medications: Ambulatory Orders Medication Instructions Recorded Confirmed Aspirin [Aspir-Low] 81 mg PO DAILY 04/27/15 06/28/19 Losartan Potassium 50 mg PO DAILY 04/27/15 06/28/19 Metformin HCl 1,000 mg PO DAILY 04/27/15 06/28/19 Metoprolol Tartrate 50 mg PO DAILY 04/27/15 06/28/19 Simvastatin 80 mg PO DAILY 04/27/15 06/28/19 Cyanocobalamin (Vitamin B-12) 1 tab PO DAILY 06/04/15 06/28/19 [Vitamin B12] Lidocaine Patch 5% [Lidoderm Patch] 1 each TOP DAILY PRN #10 patch 06/25/15 06/28/19 Levothyroxine [Synthroid] 75 mcg PO DAILY 10/04/18 06/28/19 oxyCODONE [Roxicodone] 1 tab PO TID 01/24/19 06/28/19 Zolpidem [Ambien] 1 tab ORAL DAILY PM PRN 04/18/19 06/28/19 Albuterol Oral Soln 1 amp INH Q6HR PRN 05/30/19 06/28/19 Albuterol Sulfate [Proair Hfa 2 puffs INH Q4HR PRN 05/30/19 06/28/19 Inhaler] Potassium Chloride 20 meq PO DAILY MDD for 7 days 05/30/19 06/28/19 Pregabalin 50 mg PO TID MDD titrating up to 05/30/19 06/28/19 100 mg tid Furosemide 40 mg PO DAILY 06/28/19 06/28/19 - Allergies Allergies/Adverse Reactions: Allergies Allergy/AdvReac Type Severity Reaction Status Date / Time No Known Drug Allergies Allergy Verified 05/16/19 11:00 Review of Systems - Constitutional Constitutional: reports: Fatigue, Weight stable. denies: Fever, Chills - Eyes Eyes: reports: Blurred vision, Vision loss, Other (She did see the fashion buyer, it was less than satisfactory. She does have a cataract in her left eye but is too soon for surgery. She did get a new prescription for glasses, has not followed through on that. Does feel like they did not give her good directions regarding this.) - Ears, Nose & Throat Ears, Nose & Throat: reports: Hearing loss, Dentures - Cardiovascular Cardiovascular: reports: Edema (improved on furosemide), Exertional dyspnea, Decr. exercise tolerance, Orthopnea - Respiratory Respiratory: reports: Cough, Sputum production (at baseline), SOB at rest, SOB with exertion. denies: Wheezing - Gastrointestinal Gastrointestinal: reports: Good appetite. denies: Constipation, Nausea - Genitourinary Genitourinary: reports: Incontinence - Musculoskeletal Musculoskeletal: reports: Stiffness, Muscle weakness, Other (difficult with balance due to neuropathy) - Integumentary Integumentary: reports: Rash (improved), Dryness, Hair changes - Neurological Neurological: reports: General weakness, Memory problems (mild) - Psychiatric Psychiatric: reports: Depression, Anxiety - Endocrine Endocrine: reports: Diabetes type 2, Hypothyroidism - Hematologic/Lymphatic Hematologic/Lymphatic: denies: Anemia, Recurrent infections - All Other Systems All Other Systems: reports: Reviewed and negative Physical Exam - Vital Signs Temperature: 36.8 C Pulse Rate: 85 Respiratory Rate: 16 Blood Pressure: 117/62 - Physical Exam General Appearance: positive: Alert, Mild distress, Anxious Eyes Bilateral: positive: Normal inspection ENT: positive: No signs of dehydration Neck: positive: No JVD, Trachea midline Cardiovascular: positive: Regular rate & rhythm Respiratory: positive: No respiratory distress, Diminished throughout. negative: Wheezes Abdomen: positive: Soft, Obese Skin: positive: Pallor, Dryness, Rash (improved) Extremities: positive: Pedal edema (improved) Neurologic/Psychiatric: positive: Oriented x3, Weakness, Depressed mood/affect, Flat affect Palliative Care - POLST Patient has POLST: No POLST Status: DNR Pain: Pain unchanged, Location (bilateral LE in feet; only slight improvement rates 5/10 up to 8/10 with ambulation; has persistant back pain terminal superintendent chronic; worsens with prolonged standing; relieved with sitting) Tiredness/Fatigue: Severe (7-10) Drowsiness/Sedation: Severe (7-10) Nausea: None Anorexia: Mild (1-3) Dyspnea: Severe (7-10) Depression: Severe (7-10) Anxiety: Moderate (4-6) Feelings of wellbeing/Perceived Quality of Life: Fair, Acceptable, No change Sleep: Sleep improved, Variable sleep pattern Constipation: No Performance Status: Patient's performance status limited by her dyspnea and activity intolerance. She also has difficulty with prolonged standing that limits sometimes her ability to attend ADLs. She is still able to bathe independently, does have 12 stairs up to her living area. She would be a PPS of 60%. - Palliative Care Discussion: Patient has been up to this point fairly resistant to talk about advanced care planning. We did in turn could conversation though particularly in light of the coronavirus. Her goals and what makes life living for her is her daughter Juan Ramon, she is actually "a nervous wreck" for her daughter and granddaughter versus herself. She has not left the home and has remained fairly sequestered. She does understand the seriousness of the illness if she were to get sick, she would want to be comfortable and would not want to be provided her aerobic measures, including ventilator. She does understand most likely would have poor survival. She is also worried for her roommate Olivia, who also has significant health problems. She did identify her daughter as her D POA, as well as her sister for backup. She did agree to fill out D POA form this time, provided copy and instructions. Also introduced the POLST in the context of supporting her wishes for no "heroic measures. She would at this point time continue to weigh benefits and burdens of treating reversible conditions, and would like to avoid hospitalization if possible. Results - Lab Results Lab results reviewed: Yes Lab and Imaging Results: Follow-up on kidney function, no change will continue with current dosing. Impression and Recommendations - Palliative Care Impression: This is a 68-year-old woman with metastatic lung cancer, currently receiving immunotherapy nivolumab since 2017. She has had ongoing functional decline, presents with fairly high symptom burden specific to her peripheral neuropathy, and ongoing underlying dyspnea multifactorial in origin. Palliative care continue provide support for symptom management anticipatory guidance, advanced care planning as patient dictates. Recommendations/Counseling Done: 1. Lower extremity edema. Patient has had improvement would like to continue on her 40 mg of furosemide as well as 20 mEq of potassium. Did review BMP today, reinstructed on needing to use lotion to moisturize her lower extremity feet. Rx we done for potassium and Lasix to right aid. 2. Diabetic peripheral neuropathy. Patient has transition to pregabalin, 50 mg 3 times daily with improvement. We did write out a titration schedule to be able to increase her 200 mg 3 times daily, patient is to call if sedation to great, or worried about side effects. 3. Cataract. Patient does present with needing new prescription for glasses. She was quite distressed as far as no direction given on follow through on this. Instructed given patient's far vision versus her "readers" to follow-up on prescription may improve her vision and ability to watch TV. Discussed other options as far as follow-up for obtaining new prescription. 4. Back pain. This has been chronic in nature, worsens with standing and limiting functional status. Patient is not interested in further work-up, she does use occasional salon pause/lidocaine patches but has not used recently. 5. COPD. Patient continues with moist cough, reports productive most often in a.m. does use her oxygen at night. No signs or symptoms of infection or coronavirus at this point in time. Patient has been educated on symptoms to watch for. 6. Depression. Patient does present with persistent feelings of depression, further higher anxiety with most recent changes for coronavirus management. Counseling provided again to normalize her current grief and loss process, encouraged ways for her to access her social support. 7. Metastatic lung cancer. Patient continues to tolerate her treatment with no known side effects currently. Her goal is to continue to accept treatment, she does understand the seriousness of her illness, but is hoping for both quantity and quality of time. 8. Rash. Patient's rash consistent with eczema, has responded triamcinolone prescription. 9. Advanced care planning. Patient provided D POA for medical healthcare real estate attorney and reviewed. Encouraged to fill out and bring back at her next appointment. Introduced patient and to 5 wishes for conversations with her daughter as she will be her health proxy. We also discussed in the context of the current concerns. She would not want "heroic measures". Introduced the POLST to communicate this to the healthcare team. Patient was willing to engage in exam today, her post worries so are actually more worried for her kids and her granddaughter. Time Spent: 30 minutes with greater than 50% of this done in counseling regarding pain management and taper, side effects to watch for, follow-up on BMP for potassium dosing, as well as anticipatory guidance and instruction on coronavirus precautions.
== END 2019-06-27 10:29 | disposition home or self-care (01) ==
LOC: PC 10:28
PROVIDERS: ATTEND Nurse Practitioner Adult Health
DX: Z51.5 Encounter for palliative care (principal); J44.9 Chronic obstructive pulmonary disease, unspecified; E11.42 Type 2 diabetes mellitus with diabetic polyneuropathy; R60.0 Localized edema; G89.29 Other chronic pain; F32.9 Major depressive disorder, single episode, unspecified; R21 Rash and other nonspecific skin eruption; H26.9 Unspecified cataract; C34.90 Malignant neoplasm of unspecified part of unspecified bronchus or lung; C79.9 Secondary malignant neoplasm of unspecified site; Z79.899 Other long term (current) drug therapy; Z79.891 Long term (current) use of opiate analgesic; Z79.84 Long term (current) use of oral hypoglycemic drugs; Z79.82 Long term (current) use of aspirin; Z92.3 Personal history of irradiation
CPT/HCPCS: 99214

== ENCOUNTER 2019-07-11 12:25 | Outpatient (CLI) | payer MEDICARE, OTHER ==
--- NOTE | 2019-07-11 13:49 | CONSULTATION NOTE ---
Palliative Care Follow Up - Referral Referring Provider: Yesenia Chase PA-C Time of Visit: [id number] Referral setting: [facility] [place] Referral Reason: Peripheral neuropathy/Met Lung CA - Information Sources Records reviewed: RN notes reviewed, Previous records reviewed History/Review of Systems obtained from: Patient Exam limitations: No limitations - History of Present Illness Update Brief HPI Update: This is a 68-year-old woman with metastatic lung cancer, with right hilar mass. She has been on nivolumab since 2017. She notices some decrease in energy, is compromised at baseline with shortness of breath, has ongoing productive cough, lower extremity edema has improved but still remains problematic. We have been trying to impact her lower extremity peripheral neuropathy, as it does impact her quality of life. She does have significant balance problems and escalating pain, particularly with lower extremity edema. Her pain is sharp shooting, and worsens with swelling as well as ambulation. We did try titrating her pregabalin up to 100 mg 3 times daily, she is unclear if this is more helpful, but voice is same complaints has with the gabapentin, with too much sedation. After much discussion she would like to go back to the gabapentin, she does understand she has limited life expectancy and does not want to "sleep it away". We will give her gabapentin 100 mg capsules and she can titrate them to sedation and pain relief, though these were not very effective either. Patient has been much more anxious, worries about the coronavirus and impact on her kids and grand daughter in the future. She reports she is sleeping 4 to 5 hours at night, this is fairly consistent. Patient does not follow her blood sugars, continues with 1 oxycodone at bedtime for both pain and sleep, and continues with good appetite. She does admit to high sodium intake, and often poor diet choices. Patient's past medical history includes CHF, diabetes with severe peripheral neuropathy, and history of NH. Social History - Living Situation Living arrangement: At home Living Situation: With friend(s) Support System: Patient has a roommate/friend to her with shopping and other needs. She is still able to still drive herself. She has been mostly homebound, coming to the clinic only. She has had her granddaughter, who is the apple of her eye over but she does not come if she has "sniffles". Her daughter has been providing her some household support. She does have financial stressors,. Medications/Allergies - Medications Home Medications: Ambulatory Orders Medication Instructions Recorded Confirmed Aspirin [Aspir-Low] 81 mg PO DAILY 04/27/15 07/11/19 Losartan Potassium 50 mg PO DAILY 04/27/15 07/11/19 Metformin HCl 1,000 mg PO DAILY 04/27/15 07/11/19 Metoprolol Tartrate 50 mg PO DAILY 04/27/15 07/11/19 Simvastatin 80 mg PO DAILY 04/27/15 07/11/19 Cyanocobalamin (Vitamin B-12) 1 tab PO DAILY 06/04/15 07/11/19 [Vitamin B12] Lidocaine Patch 5% [Lidoderm Patch] 1 each TOP DAILY PRN #10 patch 06/25/15 07/11/19 Levothyroxine [Synthroid] 75 mcg PO DAILY 10/04/18 07/11/19 oxyCODONE [Roxicodone] 1 tab PO TID 01/24/19 07/11/19 Zolpidem [Ambien] 1 tab ORAL DAILY PM PRN 04/18/19 07/11/19 Albuterol Oral Soln 1 amp INH Q6HR PRN 05/30/19 07/11/19 Albuterol Sulfate [Proair Hfa 2 puffs INH Q4HR PRN 05/30/19 07/11/19 Inhaler] Potassium Chloride 20 meq PO DAILY MDD for 7 days 05/30/19 07/11/19 Furosemide 40 mg PO DAILY 06/28/19 07/11/19 Gabapentin 1 - 3 cap PO BID 07/11/19 07/11/19 - Allergies Allergies/Adverse Reactions: Allergies Allergy/AdvReac Type Severity Reaction Status Date / Time No Known Drug Allergies Allergy Verified 05/16/19 11:00 Review of Systems - Constitutional Constitutional: reports: Fatigue (worsening), Weight stable. denies: Fever, Ch ills - Eyes Eyes: reports: Blurred vision, Vision loss - Ears, Nose & Throat Ears, Nose & Throat: reports: Dentures, Dry mouth - Cardiovascular Cardiovascular: reports: Edema - Respiratory Respiratory: reports: Cough (coughing spasms; productive), SOB with exertion. denies: SOB at rest - Gastrointestinal Gastrointestinal: reports: Good appetite - Genitourinary Genitourinary: reports: Incontinence - Musculoskeletal Musculoskeletal: reports: Stiffness, Muscle weakness - Integumentary Integumentary: reports: Dryness - Neurological Neurological: reports: General weakness - Psychiatric Psychiatric: reports: Depression, Anxiety - Endocrine Endocrine: reports: Diabetes type 2 - Hematologic/Lymphatic Hematologic/Lymphatic: denies: Recurrent infections - All Other Systems All Other Systems: reports: Reviewed and negative Physical Exam - Vital Signs Temperature: 36.4 C Pulse Rate: 89 Respiratory Rate: 18 Blood Pressure: 116/83 - Physical Exam General Appearance: positive: Alert, Mild distress, Anxious Eyes Bilateral: positive: No scleral icterus, Other (periorbital edema) ENT: positive: No signs of dehydration Neck: positive: No JVD, Trachea midline Respiratory: positive: No respiratory distress (but uncomfortable with cough spasms; not new) Abdomen: positive: Obese Skin: positive: Pallor, Dryness, Other (petechaie on top of feet) Extremities: positive: Pedal edema (less though still bothersome to patient) Neurologic/Psychiatric: positive: Oriented x3, Weakness, Depressed mood/affect, Flat affect Palliative Care - POLST Patient has POLST: No Pain: Pain unchanged, Location (bilateral sharp shooting in feet/legs; persistant lower back pain better with sitting) Tiredness/Fatigue: Moderate (4-6) Drowsiness/Sedation: Moderate (4-6), Comment (does not find tolerable) Nausea: None Anorexia: None Dyspnea: Moderate (4-6) Depression: Moderate (4-6) Anxiety: Severe (7-10) Feelings of wellbeing/Perceived Quality of Life: Fair, Acceptable, Worsening Sleep: Variable sleep pattern Performance Status: Patient does spend most of her time in her chair, she is able to manage her ADLs with only minor assistancewith oversight incase falls for safety. She does have 12 stairs up to her living area, would still put her at a PPS of 60%, her performance status is limited by her dyspnea and activity intolerance. - Palliative Care Discussion: Patient does recognize the seriousness of her illness, she just does not want to talk about it. We did venture last time into what she would want and not want, she would not want to be on a ventilator. She continues to be resistant to put anything into advanced directives, though she does have copies at home if she wants to move forward. We have in agreement that she will introduce it when she is ready, she does have her D POA which would be her daughter and at this point in time is quite anxious about the coronavirus and finding this overwhelming. We did spend time trying to dissect some of this. Results - Lab Results Lab results reviewed: Yes Impression and Recommendations - Palliative Care Impression: This is a 68-year-old woman with metastatic lung cancer, currently receiving immunotherapy, nivolumab since 2017. She has had ongoing functional decline, and does have high symptom burden specific to her peripheral neuropathy and dyspnea. She has not been getting a significant amount of relief from her pregabalin, would like to go back to gabapentin will make transition. She is trying to balance sedation with pain relief. Palliative care to continue provide support regarding pain and symptom management and anticipatory guidance, advanced care planning as patient dictates. Recommendations/Counseling Done: 1. Peripheral neuropathy. This is multifactorial in origin, she has diabetes with peripheral neuropathy and history of CI PN. Patient had been on gabapentin, felt it was too sedating effective. We did transition to pregabalin, titrated up to 50 3 times daily, at that point time she felt like was helping, but not significantly, so increased to 100 mg 3 times daily. She has been on this dose for about a week, she feels it is too sedating. We discussed just backing off to 50, and the and she wanted to transition back to the Gabapentin. We will give her 100 mg capsules, and she can titrate 1-3 tabs twice daily to level of sedation that is acceptable. Counseling provided galileo rding concern for withdrawal, she needs to trade straight across pregabalin to gabapentin, or decrease dosing down of pregablin to twice daily for a few days before switching. Acknowledged. 2. Lower extremity edema. Patient's kidney function is remaining stable creatinine 0.7 and GFR 84, we did discuss in the context that she continues with high sodium diet, would most likely impact if she were to watch this, she acknowledges understanding. Discussed would not recommend increasing further her diuretics given her chronic kidney disease. Her lower extremity edema though has responded to the furosemide 40 mg daily, will not make further changes. 3. Anxiety. This is multifactorial, including concerns regarding COVID 19 virus. Counseling provided to normalize her fears and concerns, and information and reassurance given. 4. Metastatic lung cancer. Patient continues to tolerate her treatment with no known side effects currently, her goals continue except treatment. She does have an good understanding the seriousness of her illness, but is hoping for both quantity and quality of time. 5. Advance care planning. Patient has forms for completing for D POA, and further advanced care planning if accepted. Patient gets quite anxious regarding this, we will continue to support patient and her goals of care. Time Spent: 30 minutes with greater than 50% of this done in counseling regarding pain management, management of lower extremity edema, and anticipatory guidance.
== END 2019-07-11 12:26 | disposition home or self-care (01) ==
LOC: PC 12:25
PROVIDERS: ATTEND Nurse Practitioner Adult Health
DX: Z51.5 Encounter for palliative care (principal); E11.42 Type 2 diabetes mellitus with diabetic polyneuropathy; G62.0 Drug-induced polyneuropathy; T45.1X5S Adverse effect of antineoplastic and immunosuppressive drugs, sequela; F41.9 Anxiety disorder, unspecified; R53.83 Other fatigue; R60.0 Localized edema; R53.1 Weakness; M54.5 Low back pain; C79.9 Secondary malignant neoplasm of unspecified site; C34.91 Malignant neoplasm of unspecified part of right bronchus or lung; Z79.82 Long term (current) use of aspirin; Z79.84 Long term (current) use of oral hypoglycemic drugs; Z79.891 Long term (current) use of opiate analgesic; Z79.899 Other long term (current) drug therapy
CPT/HCPCS: 99214

== ENCOUNTER 2019-08-08 09:51 | Outpatient (CLI) | payer MEDICARE, OTHER ==
--- NOTE | 2019-08-08 17:19 | CONSULTATION NOTE ---
Palliative Care Follow Up - Referral Referring Provider: Yesenia Chase PA-C Time of Visit: [id number] Referral setting: [facility] [place] Referral Reason: Peripheral neuropathy/Lung CA/COPD - Information Sources Records reviewed: Previous records reviewed History/Review of Systems obtained from: Patient Exam limitations: No limitations - History of Present Illness Update Brief HPI Update: This is a 68-year-old woman with metastatic lung cancer, with known right hilar mass. She has been on nivolumab since 2017. She most recently had a CT scan, showing right upper lobe and right middle lobe collapse unchanged. She has ongoing airway disease with thickening of airway avelar and segmental and subsegmental airway occlusions, multiple pulmonary nodules in left lung, mostly stable. She has a new single solid pulmonary nodule in her apical left upper lobe. And stable mediastinal lymph nodes. Patient's perception is that most likely her COPD is going to get her before her lung cancer. She actually is on very little for her COPD, she does use oxygen at night, intermittently uses her inhaler, and has not needed her albuterol nebulizer for several weeks. She has stopped her Lasix, for about 4 days. Originally she had said it had not increased her incontinence, and now she is decided it has. She continues to have intermittent lower extremity swelling, worsening through the day. She has had some small decrease in her weight. Patient was discontinued off the pregabalin. She did not fill this improved her overall pain. She is resorted back to the gabapentin. She reports she takes 300 in the a.m. 200 in the afternoon and 300 in the p.m. She occasionally takes an extra 100 at night. She has been using the Ambien with good response at night for sleep, and intermittently uses her oxycodone. Patient leads a fairly sedentary life. She remains quite anxious. Her goals are to continue for as long as possible, she does understand the seriousness of her illness. She lives for her little granddaughter Juan Ramon. Social History - Living Situation Living arrangement: At home Living Situation: With friend(s) Support System: Patient lives in in apartment, with another friend. Unfortunately this is up several steps. So she is fairly homebound. Though in the COVID-19 crisis she has been staying at home anyway. Her friend does help her with most of household tasks including laundry, shopping, and cleaning. Her daughter comes and does cleaning every 2 weeks, and her granddaughter visits weekly and has "overnight". 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 She feels like she lived a good life in the context of friends and family. Medications/Allergies - Medications Home Medications: Ambulatory Orders Medication Instructions Recorded Confirmed Aspirin [Aspir-Low] 81 mg PO DAILY 04/27/15 08/08/19 Losartan Potassium 50 mg PO DAILY 04/27/15 08/08/19 Metformin HCl 1,000 mg PO DAILY 04/27/15 08/08/19 Metoprolol Tartrate 50 mg PO DAILY 04/27/15 08/08/19 Simvastatin 80 mg PO DAILY 04/27/15 08/08/19 Cyanocobalamin (Vitamin B-12) 1 tab PO DAILY 06/04/15 08/08/19 [Vitamin B12] Levothyroxine [Synthroid] 75 mcg PO DAILY 10/04/18 08/08/19 oxyCODONE [Roxicodone] 1 tab PO TID PRN 01/24/19 08/08/19 Zolpidem [Ambien] 1 tab ORAL DAILY PM PRN 04/18/19 08/08/19 Albuterol Oral Soln 1 amp INH Q6HR PRN 05/30/19 08/08/19 Albuterol Sulfate [Proair Hfa 2 puffs INH Q4HR PRN 05/30/19 08/08/19 Inhaler] Potassium Chloride 20 meq PO DAILY 05/30/19 08/08/19 Furosemide 20 mg PO DAILY PRN 06/28/19 08/08/19 Gabapentin 200 - 300 cap PO TID 07/11/19 07/25/19 - Allergies Allergies/Adverse Reactions: Allergies Allergy/AdvReac Type Severity Reaction Status Date / Time No Known Drug Allergies Allergy Verified 05/16/19 11:00 Review of Systems - Constitutional Constitutional: reports: Fatigue, Weight stable. denies: Fever, Chills - Eyes Eyes: reports: Blurred vision, Vision loss - Ears, Nose & Throat Ears, Nose & Throat: reports: Dry mouth - Cardiovascular Cardiovascular: reports: Edema, Exertional dyspnea, Decr. exercise tolerance, Orthopnea - Respiratory Respiratory: reports: Cough, Sputum production (green/yellow phelgm), Orthopnea, SOB at rest, SOB with exertion - Gastrointestinal Gastrointestinal: reports: Good appetite. denies: Constipation, Nausea, Reflux/heartburn - Genitourinary Genitourinary: reports: Incontinence (worsening) - Musculoskeletal Musculoskeletal: reports: Back pain, Stiffness, Limited range of motion, Muscle weakness - Integumentary Integumentary: reports: Dryness - Neurological Neurological: reports: General weakness - Psychiatric Psychiatric: reports: Anxiety. denies: Depression - Endocrine Endocrine: reports: Diabetes type 2, Hypothyroidism - Hematologic/Lymphatic Hematologic/Lymphatic: denies: Recurrent infections - All Other Systems All Other Systems: reports: Reviewed and negative Physical Exam - Vital Signs Temperature: 36.9 C Pulse Rate: 82 Respiratory Rate: 18 O2 Saturation: 93 (ra @ rest) Blood Pressure: 118/56 - Physical Exam General Appearance: positive: No acute distress, Alert Eyes Bilateral: positive: Other (periorbital edema) ENT: negative: Oral lesions Neck: positive: Trachea midline Respiratory: negative: Wheezes Abdomen: positive: Obese Skin: positive: Dryness Extremities: positive: Pedal edema (1+ bilateral in ankles) Neurologic/Psychiatric: positive: Oriented x3, Mood/affect nml, Flat affect Palliative Care - POLST Patient has POLST: No Pain: Pain unchanged, Location (bilateral lower peripheral neuropathy/lower back apin), Severity (mod/severe) Tiredness/Fatigue: Moderate (4-6) Drowsiness/Sedation: Moderate (4-6) Nausea: None Anorexia: Mild (1-3) Dyspnea: Severe (7-10) Depression: Mild (1-3) Anxiety: Moderate (4-6) Feelings of wellbeing/Perceived Quality of Life: Fair, Acceptable, No change Sleep: Sleep improved Constipation: No - Palliative Care Discussion: Patient with little understanding about last CT scan, wondering if the radiation worked. Discussed scan did not show any worsening, goal is to continue to support her both for quantity and quality of life. She does feel like it is not her lung cancer that is giving her problems but her COPD. Patient does continue to smoke, has smoked for 52 years. Does not see herself giving this up. She continues to focus on the delight of her life, her grandchild. She does feel like this continue to be worth living. She does understand the seriousness of her illness, she just does not want to talk about the next step. We did discuss in the context if things are changing we could continue that conversation at any point. Results - Lab Results Lab results reviewed: Yes Impression and Recommendations - Palliative Care Impression: This is a 68-year-old woman with metastatic lung cancer, currently receiving immunotherapy nivolumab since 2017. She has had slow functional decline, has high symptom burden specific to her peripheral neuropathy and dyspnea. She is currently on gabapentin, titrating to effect. She remains resistant to most suggestions and recommendations. Palliative care continue provide support regarding pain and symptom management and anticipatory guidance, advanced care planning as patient dictates Recommendations/Counseling Done: 1. Peripheral neuropathy. 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 She disliked the pregabalin felt it was too sedating, she wanted to transition back to gabapentin, she has been titrating to effect, currently taking 300 mg a.m. 200 milligrams afternoon and 300 mg at bedtime. Sling provided regarding has significant amount of leeway if she wants to titrate up but needs to balance with her concerns regarding sedation. 2. Lower extremity edema. Patient is decided not to continue her furosemide, she perceives it is adding to her incontinence. Though initially said she had not noticed any and had gotten some relief. She has been off of it for 4 days, will leave it as as needed. Patient fluctuates in both in her recall of details as well as her acceptance of interventions. 3. Metastatic lung cancer. Patient continues to tolerate her treatment with no known side effects currently, her goals are continue to accept treatment. She does have a good understanding of the seriousness of her illness, she actually feels most likely her COPD is more problematic. Though she is not had any recurrent infections, or hospitalizations, and uses minimal COPD medications/drugs. 5. Advance care planning. Patient does have forms, if further advanced care planning is accepted. Patient continues to get quite anxious regarding this, will continue to build rapport and provide support as patient allows. Time Spent: 45 minutes with greater than 50% of this done in counseling regarding pain and symptom management and anticipatory guidance as well as coordination of care.
== END 2019-08-08 09:52 | disposition home or self-care (01) ==
LOC: PC 09:51
PROVIDERS: ATTEND Nurse Practitioner Adult Health
DX: Z51.5 Encounter for palliative care (principal); J44.9 Chronic obstructive pulmonary disease, unspecified; R32 Unspecified urinary incontinence; E11.42 Type 2 diabetes mellitus with diabetic polyneuropathy; M54.5 Low back pain; G62.0 Drug-induced polyneuropathy; T45.1X5S Adverse effect of antineoplastic and immunosuppressive drugs, sequela; F41.9 Anxiety disorder, unspecified; F17.200 Nicotine dependence, unspecified, uncomplicated; C34.91 Malignant neoplasm of unspecified part of right bronchus or lung; C78.02 Secondary malignant neoplasm of left lung; C77.1 Secondary and unspecified malignant neoplasm of intrathoracic lymph nodes; Z79.899 Other long term (current) drug therapy; Z79.84 Long term (current) use of oral hypoglycemic drugs; Z79.82 Long term (current) use of aspirin
CPT/HCPCS: 99215

== ENCOUNTER 2019-09-19 09:48 | Outpatient (CLI) | payer MEDICARE, OTHER ==
--- NOTE | 2019-09-19 17:10 | CONSULTATION NOTE ---
Palliative Care Follow Up - Referral Referring Provider: Yesenia Chase PA-C Time of Visit: [id number] Referral setting: [facility] [place] Referral Reason: Peripheral neuropathy/Lung CA/COPD - Information Sources Records reviewed: Previous records reviewed History/Review of Systems obtained from: Patient Exam limitations: No limitations - History of Present Illness Update Brief HPI Update: This is a 68-year-old woman with metastatic lung cancer, involving bilateral lungs, with known right hilar mass, and pulmonary nodule in her left apical lobe. She has been on nivolumab since 2017, and continues to be quite compromised with severe dyspnea which limits activity and leads to fairly sedentary life. She also suffers from severe peripheral neuropathy, lower extremity edema, and insomnia. Patient does have some short-term memory issues, and is frequently revisiting medications. She had been trialed on pregabalin, which did help originally with her peripheral neuropathy, but then she perceived it did not help so she went back on gabapentin. Then she perceives that that added to her swelling, so than she was taking oxycodone 1 tab 3 times daily most recently. And actually discussion though weighing benefits and burdens of managing her peripheral neuropathy, she does feel the oxycodone is more effective and is better able to tolerate her pain which can be up to 8 out of 10, and would like to work with the oxycodone and try and titrate this to a better level of comfort. Her pain is worse with any kind of weightbearing, and is relieved with elevation. She also has chronic back pain, is only able to stand for several minutes, before needing rest and relief. She continues to struggle with her ongoing functional decline, and worsening quality of life. She though is quite committed to continue with treatment, as she still finds jose alfredo particularly with her relationship with her granddaughter. She also has a brandi relationship with her roommate Olivia and finds live still worth living. Social History - Living Situation Living arrangement: At home Living Situation: With friend(s) Support System: Patient lives in her own home, with her friend Olivia. They have known each other for several years, she herself has health problems, they help support each other, though Olivia does provide some caregiving support for shopping, laundry, and meals. [place] provide cleaning every couple weeks, she also gets to see her granddaughter who comes spends the night which is her very favorite. Medications/Allergies - Medications Home Medications: Ambulatory Orders Medication Instructions Recorded Confirmed Aspirin [Aspir-Low] 81 mg PO DAILY 04/27/15 09/19/19 Losartan Potassium 50 mg PO DAILY 04/27/15 09/19/19 Metformin HCl 1,000 mg PO DAILY 04/27/15 09/19/19 Metoprolol Tartrate 50 mg PO DAILY 04/27/15 09/19/19 Simvastatin 80 mg PO DAILY 04/27/15 09/19/19 Cyanocobalamin (Vitamin B-12) 1 tab PO DAILY 06/04/15 09/19/19 [Vitamin B12] Levothyroxine [Synthroid] 75 mcg PO DAILY 10/04/18 09/19/19 oxyCODONE [Roxicodone] 2 tab PO TID PRN 01/24/19 09/19/19 Zolpidem [Ambien] 5 - 10 mg ORAL DAILY PM PRN 04/18/19 09/19/19 Albuterol Oral Soln 1 amp INH Q6HR PRN 05/30/19 09/19/19 Albuterol Sulfate [Proair Hfa 2 puffs INH Q4HR PRN 05/30/19 09/19/19 Inhaler] Potassium Chloride 20 meq PO DAILY PRN MDD with lasix 05/30/19 09/19/19 Furosemide 20 mg PO DAILY PRN 06/28/19 09/19/19 - Allergies Allergies/Adverse Reactions: Allergies Allergy/AdvReac Type Severity Reaction Status Date / Time No Known Drug Allergies Allergy Verified 09/05/19 11:31 Review of Systems - Constitutional Constitutional: reports: Fatigue, Weight loss. denies: Fever, Chills - Eyes Eyes: reports: Blurred vision, Vision loss - Ears, Nose & Throat Ears, Nose & Throat: reports: Dentures, Dry mouth - Cardiovascular Cardiovascular: reports: Edema (perceives is better), Exertional dyspnea, Decr. exercise tolerance. denies: Chest pain - Respiratory Respiratory: reports: Cough, Sputum production, Wheezing, Snoring, SOB at rest, SOB with exertion - Gastrointestinal Gastrointestinal: reports: Constipation, Early satiety, Other (taste chagnes). denies: Nausea - Genitourinary Genitourinary: reports: Incontinence - Musculoskeletal Musculoskeletal: reports: Muscle pain, Back pain, Muscle aches, Stiffness, Limited range of motion, Muscle weakness - Integumentary Integumentary: reports: Dryness - Neurological Neurological: reports: General weakness, Numbness, Memory problems, Abnormal gait - Psychiatric Psychiatric: reports: Depression, Anxiety - Endocrine Endocrine: reports: Diabetes type 2 (does not track BS nor follow diabetic diet), Hypothyroidism - Hematologic/Lymphatic Hematologic/Lymphatic: denies: Bruising, Recurrent infections - All Other Systems All Other Systems: reports: Reviewed and negative Physical Exam - Vital Signs Temperature: 98.4 C Pulse Rate: 79 Respiratory Rate: 18 Blood Pressure: 98/63 - Physical Exam General Appearance: positive: Alert, Anxious Eyes Bilateral: positive: Normal inspection, Other (periorbital edema) ENT: positive: Other (mask on/has dentures) Neck: positive: Trachea midline, Other (full neck) Cardiovascular: positive: Regular rate & rhythm Respiratory: positive: Diminished throughout, Rhonchi (upper airways anteriorly; clear with coughing), Other (resp. effort with increased conversation). negative: Wheezes Abdomen: positive: Non-tender, Soft, Obese Skin: positive: Dryness (feet) Extremities: positive: Pedal edema (no change; 1+ bilaterally up over ankles) Neurologic/Psychiatric: positive: Oriented x3, Mood/affect nml, Weakness, Flat affect Palliative Care - POLST Patient has POLST: No Pain: Pain worsening, Severity (11/12 without medication; using oxycodone 5 mg TID with mild relief; stopped gabapentin) Tiredness/Fatigue: Moderate (4-6) Drowsiness/Sedation: Moderate (4-6) (reports sleeps alot during day; spends most of time in recliner; limited by dyspnea) Nausea: None Anorexia: Mild (1-3) Dyspnea: Severe (7-10) (does feel it is progressively worsening) Depression: Mild (1-3) Anxiety: Mild (1-3) Feelings of wellbeing/Perceived Quality of Life: Fair, Acceptable, Worsening Constipation: Yes, Opoid induced, Unmanaged Performance Status: Patient admits activity is quite limited, she does ambulate around her home but mostly to the bathroom. She is still able to manage her bathing, but does spend most of her time in the recliner. She does try and do some small household tasks but is limited by her ability to stand and her dyspnea. - Palliative Care Discussion: Patient continues to struggle with her limited quality of life, and does perceive a slow decline but remains hopeful for both more time and continued independence. She very much appreciates her friendship with her roommate, as well as her "messi" granddaughter who makes life worth living. She is getting more comfortable reflecting on her life review and sharing some of her feelings. Results - Lab Results Lab results reviewed: Yes Impression and Recommendations - Palliative Care Impression: This is a 68-year-old woman with metastatic lung cancer, currently receiving ni volumab since 2017. She is continued to have slow functional decline, high symptom burden specific to peripheral neuropathy and dyspnea, as well as fatigue and depression. Palliative care continues to provide support regarding pain and symptom management and anticipatory guidance, advanced care planning as patient allows. Recommendations/Counseling Done: 1. Peripheral neuropathy. This is multifactorial in origin, she does have diabetes and history of CI PN. She has stopped the gabapentin, and is using oxycodone 1 tab 3 times a day, still feels her pain is fairly severe and limits her ambulation "so bad I want to cry" at times. She does get some relief, but short time period of 2 to 3 hours. Counseling provided regarding gabapentin/pregabalin and role in neuropathic pain versus oxycodone/opioid. Patient at this point in time would like to continue with just the oxycodone, will increase prescription to 1-2 5 mg tabs 3 times daily to see if she can get better relief. She does struggle with balancing her medications with sedation, as she is quite sedentary. 2. Constipation, opioid induced. Counseling provided regarding adding laxatives, including MiraLAX half cap daily, and 1-2 senna at bedtime, with titration as needed. Reviewed and written instructions provided. 3. Weight loss. This is multifactorial, patient does have some anorexia, early satiety, challenges with her taste changes. She does have diabetes, and no she does not follow a "healthy" diet. She does like her sweets, thus feels why she has not lost more weight. She does not like Ensure or other supplemental drinks. She actually can tolerate milk, she would like to try instant breakfast and see if this is tolerable. 4. Lower extremity edema. On examination does not appear any better or worse, patient perceives improved after stopping gabapentin. Encouraged to continue use furosemide as needed, she does admit to a high salt diet at times. 5. Anxiety. This is multifactorial in origin, does perceive her quality of life is declining, but is somewhat accepting of where she is currently. She dominick best with limited information, but is willing to share and have increased support from palliative care team. 6. Generalized weakness. Patient does have some balance with her peripheral neuropathy, as well as increasing lower extremity weakness. She would benefit from a walker. We will facilitate referral to [facility]im[facility] Broderick to obtain. 7. Dyspnea. This is multifactorial, suspect her COPD plays a large part of this. Patient is encouraged to use her oxygen more frequently, she is currently using only at night. She does get quite breathless with any trips to the bathroom, she does have a concentrator with a long tube. She does not have an oximeter to measure. She does get tight and wheezy, uses her albuterol inhaler, encouraged to use her albuterol nebulizer to help move her upper airway secretions at least in the a.m. on arising. Patient acknowledged instructions. Time Spent: 50 minutes with greater than 50% of this done in counseling regarding pain and symptom management, addressing anxiety and anticipatory guidance.
== END 2019-09-19 09:49 | disposition home or self-care (01) ==
LOC: PC 09:48
PROVIDERS: ATTEND Nurse Practitioner Adult Health
DX: Z51.5 Encounter for palliative care (principal); G62.0 Drug-induced polyneuropathy; T45.1X5D Adverse effect of antineoplastic and immunosuppressive drugs, subsequent encounter; E11.42 Type 2 diabetes mellitus with diabetic polyneuropathy; K59.03 Drug induced constipation; T40.2X5D Adverse effect of other opioids, subsequent encounter; R63.4 Abnormal weight loss; R63.0 Anorexia; R68.81 Early satiety; R43.9 Unspecified disturbances of smell and taste; R60.0 Localized edema; F41.9 Anxiety disorder, unspecified; R53.1 Weakness; J44.9 Chronic obstructive pulmonary disease, unspecified; G47.00 Insomnia, unspecified; C34.90 Malignant neoplasm of unspecified part of unspecified bronchus or lung; C78.02 Secondary malignant neoplasm of left lung; C78.01 Secondary malignant neoplasm of right lung; Z79.899 Other long term (current) drug therapy; Z79.891 Long term (current) use of opiate analgesic; Z99.81 Dependence on supplemental oxygen
CPT/HCPCS: 99215

== ENCOUNTER 2019-10-17 08:57 | Outpatient (CLI) | payer MEDICARE, OTHER ==
--- NOTE | 2019-10-17 12:22 | CONSULTATION NOTE ---
Palliative Care Follow Up - Referral Referring Provider: Yesenia Chase PA-C Time of Visit: [id number] Referral setting: [facility] [place] Referral Reason: CIPN/Met Lung CA - Information Sources Records reviewed: RN notes reviewed, Previous records reviewed History/Review of Systems obtained from: Patient Exam limitations: Clinical condition (patient with STM issues) - History of Present Illness Update Brief HPI Update: This is a 68-year-old woman with metastatic lung cancer, and boils being bilateral lungs, with known right hilar mass, and pulmonary nodule in her left apical lobe. She has been on nivolumab since 2017, she does remain quite compromised with severe dyspnea, which limits activity and continues to lead to a sedentary life. She also suffers from severe peripheral neuropathy, fluctuating lower extremity edema, insomnia, and short-term memory issues. She was convinced the gabapentin was adding to her swelling, since she has stopped though, her peripheral swelling has fluctuated less, and been better. I suspect some of this though is also due to the looks like she has had some ongoing weight loss, though she does report she has no appetite, has taste changes, and is not interested in eating. She has been using oxycodone instead of the gabapentin, with 1 tab a.m. of 5 mg, 1 tab midafternoon, and 2 tabs at bedtime. She does feel like this is making it bearable, though she does dislikes some of the sedation. She also has chronic lower back pain, with any kind of weightbearing, is relieved with sitting and elevation, despite all this she does perceive herself as having adequate quality of life. Though she does perceive this is worsening. She is quite committed to continuing treatment, she continues to find her recent to continue is her jose alfredo a with relationship with granddaughter. She also has a brandi relationship and commitment with her roommate Olivia, Who provides care and support for her to be able to remain in her own home. She does still live on an upper floor, and getting up and down the stairs continues to be quite challenging. Social History - Living Situation Living arrangement: At home Living Situation: With friend(s) Support System: Patient lives in her own home, she does get support from her roommate, her daughter comes and cleans every 2 weeks. She is still able to manage her ADLs, and does some cooking. Her roommate does the shopping, is helping with some with transportation, and provides companionship. She does have her granddaughter come every Wednesday night for overnight, she very much enjoys this time with her. Medications/Allergies - Medications Home Medications: Ambulatory Orders Medication Instructions Recorded Confirmed Aspirin [Aspir-Low] 81 mg PO DAILY 04/27/15 10/03/19 Losartan Potassium 50 mg PO DAILY 04/27/15 10/03/19 Metformin HCl 1,000 mg PO DAILY 04/27/15 10/03/19 Metoprolol Tartrate 50 mg PO DAILY 04/27/15 10/03/19 Simvastatin 80 mg PO DAILY 04/27/15 10/03/19 Cyanocobalamin (Vitamin B-12) 1 tab PO DAILY 06/04/15 10/03/19 [Vitamin B12] Levothyroxine [Synthroid] 75 mcg PO DAILY 10/04/18 10/03/19 oxyCODONE [Roxicodone] 2 tab PO TID PRN 01/24/19 10/03/19 Zolpidem [Ambien] 5 - 10 mg ORAL DAILY PM PRN 04/18/19 10/03/19 Albuterol Oral Soln 1 amp INH Q6HR PRN 05/30/19 10/03/19 Albuterol Sulfate [Proair Hfa 2 puffs INH Q4HR PRN 05/30/19 10/03/19 Inhaler] Potassium Chloride 20 meq PO DAILY PRN MDD with lasix 05/30/19 10/03/19 Furosemide 20 mg PO DAILY PRN 06/28/19 10/03/19 - Allergies Allergies/Adverse Reactions: Allergies Allergy/AdvReac Type Severity Reaction Status Date / Time No Known Drug Allergies Allergy Verified 10/03/19 09:39 Review of Systems - Constitutional Constitutional: reports: Fatigue, Poor appetite. denies: Fever, Chills - Eyes Eyes: reports: Blurred vision (has new eye prescription; patient reports worsening vision; has not followed through), Vision loss - Ears, Nose & Throat Ears, Nose & Throat: reports: Hearing loss, Dry mouth - Cardiovascular Cardiovascular: reports: Edema, Exertional dyspnea, Decr. exercise tolerance - Respiratory Respiratory: reports: Cough (prod javed/green baseline sputum), Wheezing (occasional; not needing inhaler), SOB with exertion. denies: SOB at rest - Gastrointestinal Gastrointestinal: reports: Poor appetite, Early satiety. denies: Constipation, Nausea, Reflux/heartburn - Genitourinary Genitourinary: reports: Incontinence - Musculoskeletal Musculoskeletal: reports: Muscle pain, Back pain, Muscle aches, Stiffness, Limited range of motion, Muscle weakness, Assistive devices (needs front wheeled walker) - Integumentary Integumentary: reports: Dryness - Neurological Neurological: reports: General weakness, Numbness, Memory problems - Psychiatric Psychiatric: reports: Depression, Anxiety - Endocrine Endocrine: reports: Diabetes type 2 (does not check BS), Hypothyroidism - Hematologic/Lymphatic Hematologic/Lymphatic: denies: Recurrent infections - All Other Systems All Other Systems: reports: Reviewed and negative Physical Exam - Vital Signs Pulse Rate: 76 Respiratory Rate: 18 Blood Pressure: 114/63 - Physical Exam General Appearance: positive: No acute distress, Alert, Other (fatigued; slept poorly) Eyes Bilateral: positive: No scleral icterus ENT: positive: Hearing loss, Postnasal drainage, Dry mouth. negative: Mouth lesions Neck: positive: Trachea midline, Other (enlarged neck;) Cardiovascular: positive: Irregularly irregular Respiratory: positive: No respiratory distress, Diminished throughout. negative: Wheezes, Rales, Rhonchi Abdomen: positive: Non-tender, Soft, Obese Skin: positive: Pallor, Dryness, Other (feet dry and cracking) Extremities: positive: Pedal edema (improved; but still 1+) Neurologic/Psychiatric: positive: Oriented x3, Weakness, Depressed mood/affect, Flat affect Palliative Care - POLST Patient has POLST: No Pain: Pain unchanged, Location (lower back; and bilateral feet with CIPN; sharp shooting; worse with standing), Comment (using oxycodone 5 mg am/afternoon 2 @ bedtime average) Tiredness/Fatigue: Severe (7-10) Drowsiness/Sedation: Moderate (4-6) Nausea: Mild (1-3) Anorexia: Moderate (4-6) Dyspnea: Moderate (4-6) Depression: Moderate (4-6) Anxiety: Moderate (4-6) Feelings of wellbeing/Perceived Quality of Life: Fair, Acceptable, No change Sleep: Variable sleep pattern Constipation: Yes, Opoid induced, Managed Performance Status: Patient can ambulate short distances, very often limited by her breathlessness. She would still like a walker to help her get up and down the stairs, she is worried about her balance. She does do mostly spit baths, and unable to do very much housework. She is becoming more sedentary. She is having increased vision problems, I would put her at a PPS of 60% - Palliative Care Discussion: Patient continues to be easily overwhelmed, we did explore briefly her wishes, attempted to introduce if patient were to need more help what kind of plan she has, she does continue to struggle with her quality of life, she continues to remain hopeful for more time and continued independence. She does feel her roommate to be able to offer some increased support, as well as her daughter, but is not keen on taking the conversation further. We will continue to explore to define quality of life issues for her. She was reflective as she just had her 69th birthday, that she had not expected to make it this far, she feels very fortunate, and still perceives her quality of life as reasonable. Results - Lab Results Lab results reviewed: Yes Impression and Recommendations - Palliative Care Impression: This is a 69-year-old woman with metastatic lung cancer, currently receiving nivolumab since 2017. She continues to have a slow functional decline, high symptom burden specific to peripheral neuropathy and dyspnea, as well as fatigue and depression. Palliative care continues to provide support regarding pain and symptom management and anticipatory guidance, and advanced care planning as patient allows. Recommendations/Counseling Done: 1. Peripheral neuropathy. This is multifactorial in origin, she does have fairly poorly controlled diabetes, and a history of CI PN. She had stopped gabapentin, she felt it was adding to her swelling. She is using oxycodone 1-2 tabs up to 3 times a day, usually totaling 4 tabs total. She is getting some pain relief, enough that she can walk. She does still have some sedation with this, but at baseline is quite sedentary. She is happy with her current regimen, does not want to make any changes. 2. Constipation, opioid induced. Patient was too confused with the laxatives, she is using intermittent Ex-Lax, but reports she is going on a regular basis, and has not needed further medications. We will continue to monitor. 3. Weight loss. This is multifactorial, patient does have anorexia, early satiety, challenges with her taste changes. She does not like Ensure or other supplemental drinks, she is trying to supplement her diet, in particular does not like meat or protein. Patient is eating foods that appeal to her, encouraged to continue with her fluids as able, patient is not distressed at this point in time, will continue to monitor. 4. Lower extremity edema. On examination does not appear any worse, maybe a little better. She does have the furosemide to use as needed, she does have intermittent high salt diet. She does keep her legs elevated. She reports they are more comfortable, though they are quite dry and somewhat cracked, she does have difficulty reaching her feet. 5. Anxiety. This is multifactorial in origin, she does perceive still having quality of life but things are declining. She dominick best with limited information, but is willing to share and continue to have support from the palliative care team, continue to build rapport and explore her worries. 6. Generalized weakness. Patient does have balance issues with her peripheral neuropathy, [facility] did not have a walk[facility] available, will follow up with purchase if needed. 7. Dyspnea. This is multifactorial, suspect her COPD plays a large part of this. Patient has not needed her inhalers, denies any wheezing. She does get breathless with any trips to the bathroom, did encourage patient to use her oxygen more frequently, may assist with her fatigue and sleepiness, patient acknowledges instructions. Though she does have significant short-term memory issues. 8. Blurry vision. Patient has had eye exam, does have new prescription, has not followed through. Does impact her quality of life, as she likes to play games, watch TV, and do her puzzles. [address] out [address] [place] [facility], that she could get her prescription filled, encouraged her to follow through on this. Time Spent: 35 minutes with greater than 50% is done in counseling regarding pain and symptom management, addressing anxiety and anticipatory guidance.
== END 2019-10-17 08:58 | disposition home or self-care (01) ==
LOC: PC 08:57
PROVIDERS: ATTEND Nurse Practitioner Adult Health
DX: Z51.5 Encounter for palliative care (principal); C34.01 Malignant neoplasm of right main bronchus; C34.12 Malignant neoplasm of upper lobe, left bronchus or lung; R06.00 Dyspnea, unspecified; G62.9 Polyneuropathy, unspecified; R60.0 Localized edema; F41.9 Anxiety disorder, unspecified; F32.9 Major depressive disorder, single episode, unspecified; R53.83 Other fatigue; R63.4 Abnormal weight loss; G89.29 Other chronic pain; M54.5 Low back pain; R53.1 Weakness; H53.8 Other visual disturbances; E11.9 Type 2 diabetes mellitus without complications; E03.9 Hypothyroidism, unspecified; R41.3 Other amnesia; K59.00 Constipation, unspecified; T40.605A Adverse effect of unspecified narcotics, initial encounter; G47.00 Insomnia, unspecified; H91.90 Unspecified hearing loss, unspecified ear; Z79.891 Long term (current) use of opiate analgesic; Z79.82 Long term (current) use of aspirin; Z79.84 Long term (current) use of oral hypoglycemic drugs; Z79.51 Long term (current) use of inhaled steroids; Z79.899 Other long term (current) drug therapy
CPT/HCPCS: 99214

== ENCOUNTER 2020-01-09 10:02 | Outpatient (CLI) | payer MEDICARE, OTHER ==
--- NOTE | 2020-01-09 11:19 | CONSULTATION NOTE ---
Palliative Care Follow Up - Referral Referring Provider: Yesenia Chase PA-C Time of Visit: 10:00-1045 Referral setting: [facility] [place] Referral Reason: CIPN/Lung ca/Dyspnea - Information Sources Records reviewed: Previous records reviewed History/Review of Systems obtained from: Patient Exam limitations: No limitations - History of Present Illness Update Brief HPI Update: This is a 69-year-old woman with metastatic lung cancer, involving bilateral lungs. She recently had a CT scan in October that showed stable disease without any evidence of progression, she is due for rescan at the end of the year. She has been tolerating the nivolumab which she has been on since 2016, continues with every 2 weeks. She has had some weight loss, anorexia, mild musculoskeletal complaints, and has very compromised lung status. She is with severe dyspnea, underlying COPD, has intermittent coughing spasms, and presents today with wheezing. It does limit her activity and continues to live a sedentary life, which is frustrating to her. She also suffers from severe peripheral neuropathy in her lower extremities, fluctuating lower extremity edema, insomnia, and short-term memory issues. Unfortunately she had not notified me of her running out of pain meds to last week, through a series of unfortunate events to prescriptions were not delivered. She has been without pain meds since . She did have some nausea, but no significant withdrawal effects. She does though have an exacerbation her pain, which is peripheral neuropathy, in her hands and feet. She is "quite miserable" with a 7 out of 10. She often avoids confrontations, particularly with medical staff, reviewed again it is not problematic to call and follow-up if had not received prescription, unfortunately she waited until today. She remains committed to continue treatment, she does this for her relationship with her granddaughter Juan Ramon. She has family support, recently had a family reunion with her sisters and nieces, as well as her daughter and granddaughter. She does have fluctuating mood alterations, and perceives both depression and anxiety but does not want to add anything to her medication regimen. Past medical history includes diabetes type 2, hypothyroidism, COPD, lower extremity edema, insomnia, CHF, hypertension, high cholesterol, history of PR, incontinence, chronic vision loss, osteoarthritis, and chronic back pain. She does have a history of a coronary stent Social History - Living Situation Living arrangement: At home Living Situation: With friend(s) Support System: She lives at home with roommate, who is also a good friend. They do help each other out, though her friend does provide shopping, household support, and transportation. Her daughter does help with housecleaning every other week, patient is able to do some household tasks, and occasionally drives. 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 Medications/Allergies - Medications Home Medications: Ambulatory Orders Medication Instructions Recorded Confirmed Aspirin [Aspir-Low] 81 mg PO DAILY 04/27/15 01/09/20 Losartan Potassium 50 mg PO DAILY 04/27/15 01/09/20 Metformin HCl 1,000 mg PO DAILY 04/27/15 01/09/20 Metoprolol Tartrate 50 mg PO DAILY 04/27/15 01/09/20 Simvastatin 80 mg PO DAILY 04/27/15 01/09/20 Cyanocobalamin (Vitamin B-12) 1 tab PO DAILY 06/04/15 01/09/20 [Vitamin B12] Levothyroxine [Synthroid] 75 mcg PO DAILY 10/04/18 01/09/20 oxyCODONE [Roxicodone] 5 - 10 tab PO Q4HR PRN 01/24/19 12/12/19 Zolpidem [Ambien] 5 - 10 mg ORAL DAILY PM PRN 04/18/19 01/09/20 Albuterol Oral Soln 1 amp INH Q6HR PRN 05/30/19 01/09/20 Albuterol Sulfate [Proair Hfa 2 puffs INH Q4HR PRN 05/30/19 01/09/20 Inhaler] Potassium Chloride 20 meq PO DAILY PRN MDD with lasix 05/30/19 01/09/20 Furosemide 20 mg PO DAILY PRN 06/28/19 01/09/20 Morphine ER 15 mg PO QPM 11/14/19 01/09/20 Senna [Senokot] 1 - 2 tab PO DAILY PRN 01/09/20 01/09/20 polyethylene glycoL 3350 [Miralax] 8.5 - 17 mg PO DAILY 01/09/20 01/09/20 - Allergies Allergies/Adverse Reactions: Allergies Allergy/AdvReac Type Severity Reaction Status Date / Time No Known Drug Allergies Allergy Verified 12/12/19 11:40 Review of Systems - Constitutional Constitutional: reports: Fatigue, Poor appetite. denies: Fever, Chills - Eyes Eyes: reports: Blurred vision, Vision loss, Corrective lenses (new glasses/not "strong enough") - Ears, Nose & Throat Ears, Nose & Throat: reports: Hearing loss (mild) - Cardiovascular Cardiovascular: reports: Edema, Decr. exercise tolerance - Respiratory Respiratory: reports: Cough (coughing spasms), Sputum production (yellow), Wheezing, Orthopnea, SOB at rest, SOB with exertion - Gastrointestinal Gastrointestinal: reports: Constipation, Reflux/heartburn, Poor appetite, Early satiety, Other (taste changes) - Genitourinary Genitourinary: reports: Incontinence - Musculoskeletal Musculoskeletal: reports: Stiffness, Limited range of motion, Muscle weakness, Assistive devices (uses walker) - Integumentary Integumentary: reports: Dryness - Neurological Neurological: reports: General weakness, Memory problems, Abnormal gait (related to neuropathy) - Psychiatric Psychiatric: reports: Depression, Anxiety - Endocrine Endocrine: reports: Diabetes type 2, Hypothyroidism - Hematologic/Lymphatic Hematologic/Lymphatic: denies: Recurrent infections - All Other Systems All Other Systems: reports: Reviewed and negative Physical Exam - Physical Exam General Appearance: positive: No acute distress, Alert Eyes Bilateral: positive: No scleral icterus, Other (periorbital edema) ENT: positive: No signs of dehydration Neck: positive: Trachea midline, Other (enlarged neck;) Cardiovascular: positive: Irregularly irregular Respiratory: positive: No respiratory distress, Diminished throughout. negative: Wheezes, Rales, Rhonchi Abdomen: positive: Non-tender, Soft, Obese Skin: positive: Pallor, Dryness, Other (feet dry and cracking) Extremities: positive: Pedal edema (improved; but still 1+) Neurologic/Psychiatric: positive: Oriented x3, Mood/affect nml, Weakness, Flat affect Palliative Care - POLST Patient has POLST: No POLST Status: Full Code Pain: Pain worsening (off medications for several day; reported was using morphine at night, with good control and oxycodone during the day for fluctuating pain levels. Did not like MS during day, felt to sedated), Severity Tiredness/Fatigue: Moderate (4-6) Drowsiness/Sedation: Moderate (4-6) Nausea: None Anorexia: Moderate (4-6) Dyspnea: Severe (7-10) Depression: Moderate (4-6) Anxiety: Mild (1-3) Feelings of wellbeing/Perceived Quality of Life: Fair, No change Sleep: Variable sleep pattern Constipation: Yes, Opoid induced, Intermittent constipation Performance Status: With walker, she does have poor activity tolerance. She is able to manage her own ADLs, though has to pace these. She can drive short distances. - Palliative Care Discussion: Patient continues to be quite pragmatic, taking things as they come. She does not perceive her quality life is fabulous, but still worth living. She is very fond and focus on her relationship with her granddaughter. They still have overnights, she still is the apple of her eye. And still makes life worth living for her. She does admit to getting depressed, but does not like to dwell on it, she is always been a poor yourself up by the boost straps kind of gal. Reviewed her current situation and what was going on in her life that is adding to her jose alfredo and things that she is concerned about Results - Lab Results Lab results reviewed: Yes Impression and Recommendations - Palliative Care Impression: This is a 69-year-old woman with metastatic lung cancer, continuing nivolumab every 2 weeks. She has had slow functional decline, high symptom burden specific to peripheral neuropathy, back pain, dyspnea, fatigue and depression. Unfortunately ran out of her pain meds last week, her pain is exacerbated today. Patient also having increased wheezing, though reports dyspnea at baseline. Palliative care continues to provide support regarding pain and symptom management and anticipatory guidance, and advanced care planning as patient allows Recommendations/Counseling Done: 1. Peripheral neuropathy. This is multifactorial in origin, she is fairly poorly controlled diabetes and persistent and worsening CI PN. She has found u sing the morphine time-released at bedtime 15 mg does help, she found a.m. too sedating, is using oxycodone in response of fluctuating pain during the day. New prescriptions provided, reinforced need to connect with provider as withdrawals are not pleasant and can sometimes be dangerous. 2. Constipation, opioid induced. Patient has been using MiraLAX, instructed to use daily, and reinforced use of senna for laxative 1-2 tabs if no BM in 48 hours. Continues to just accordingly. 3. Lower extremity edema. Patient has not used any Lasix for at least a couple months, she does report it fluctuates particularly depending on her intake. Today it looks good, we will continue to monitor. 4. Dyspnea. This is multifactorial, her COPD plays a large part in this. She does get breathless quite easily, continues to have coughing spasms. She is quite wheezy today, reports she is at baseline. She does not like to wear the oxygen during the day does not perceive "it helps" patient's O2 sats indeed are at 98% here at rest. Did recommend given her scattered wheezes, is to restart on a regular basis her nebulizer at least 2 times a day, patient verbalized understanding. Did discuss in the context of this she is at high risk for pneumonia, is good to keep secretions moving, as well as cut down on smoking. Also recommended she get her flu shot. 5. Blurry vision. Patient does have a new prescription, unfortunately does not find this really helpful, they are graduated lenses, encouraged her to spend time trying to get used to them. She is concerned her not "strong enough". Rec ommended she continue to trial on a regular basis. 6. Anxiety. This is multifactorial in origin, she continues to perceive her quality of life is acceptable, but also perceives she is declining, continue to provide support and build rapport, patient does not like to talk about advanced care planning, her goals are to continue on as long as possible, though she does recognize the seriousness of her illness. Time Spent: 45 minutes with greater than 50% of this done in counseling regarding pain and symptom management, addressing depression anxiety, and anticipatory guidance.
== END 2020-01-09 10:03 | disposition home or self-care (01) ==
LOC: PC 10:02
PROVIDERS: ATTEND Nurse Practitioner Adult Health
DX: Z51.5 Encounter for palliative care (principal); G89.3 Neoplasm related pain (acute) (chronic); G62.0 Drug-induced polyneuropathy; T45.1X5A Adverse effect of antineoplastic and immunosuppressive drugs, initial encounter; E11.42 Type 2 diabetes mellitus with diabetic polyneuropathy; K59.03 Drug induced constipation; T40.2X5A Adverse effect of other opioids, initial encounter; R60.0 Localized edema; R06.2 Wheezing; J44.9 Chronic obstructive pulmonary disease, unspecified; F41.9 Anxiety disorder, unspecified; H53.8 Other visual disturbances; F17.200 Nicotine dependence, unspecified, uncomplicated; R63.0 Anorexia; R63.4 Abnormal weight loss; C78.02 Secondary malignant neoplasm of left lung; C78.01 Secondary malignant neoplasm of right lung; C34.90 Malignant neoplasm of unspecified part of unspecified bronchus or lung; Z79.899 Other long term (current) drug therapy; Z79.84 Long term (current) use of oral hypoglycemic drugs; Z79.891 Long term (current) use of opiate analgesic; Z99.81 Dependence on supplemental oxygen
CPT/HCPCS: 99215

== ENCOUNTER 2020-02-06 10:15 | Outpatient (CLI) | payer MEDICARE, OTHER ==
--- NOTE | 2020-02-06 11:40 | CONSULTATION NOTE ---
Palliative Care Follow Up - Referral Referring Provider: Yesenia Chase PA-C Time of Visit: [id number] [place] [facility] [place] Reason: CIPN/Lung CA/Insomnia - Information Sources Records reviewed: RN notes reviewed, Previous records reviewed History/Review of Systems obtained from: Patient Exam limitations: Clinical condition (mild STM) - History of Present Illness Update Brief HPI Update: 69-year-old woman with metastatic lung cancer, involving bilateral lungs. She is currently on nivolumab, since 2017, she receives this every other week. She has tolerated it fairly well, though does have some weight loss, anorexia, and mild skeletal muscular complaints. She does have severe dyspnea, underlying COPD, intermittent coughing spasms, and fluctuating issues regarding wheezing. She does have limitations regarding her dyspnea and peripheral neuropathy, and tends to live a sedentary life, which is quite frustrating to her. Her biggest complaint is her severe peripheral neuropathy in her lower extremities, fluctuating lower extremity edema, insomnia, and intermittent short-term memory issues. Patient had to be initiated on her own gabapentin 300 mg twice daily, she did use this when she had run out of her oxycodone, she did find it was helpful. At this point in time she is feeling like she is managing with MS Contin 15 mg at bedtime, oxycodone 5 to 10 mg for breakthrough pain using 2-3 doses in 24 hours, as well as gabapentin 300 mg a.m. and 300 mg at dinnertime. She is finding the Ambien quite helpful for sleep, does feel rested when she gets up. She continues to struggle with sedation during the day, but finds this acceptable in juxtaposition to her pain. Today she is announced that she is ready to talk about her advance care planning documents, she is getting quite anxious about this, as she does understand that she has "outlived her statistics". She would like her friend Olivia to be her durable power of health state's attorney, we did discuss given her anxiety and tearfulness about this, about completing this with a home visit. This way we would be able to include her friend, and complete the documents in a paced environment and able to address her concerns. Past Medical History: Diabetes type 2, hypothyroidism, advanced COPD, lower extremity edema, insomnia, CHF, hypertension, high cholesterol, history of AR, incontinence, chronic vision loss, osteoarthritis, and chronic back pain. And history of a coronary stent. Social History - Living Situation Living arrangement: At home Living Situation: With friend(s) Support System: Patient lives with her good friend DD, is her roommate as well. She does help her out as well as she supports her. Her friend does provide shopping, household support, and transportation. [place] other week, she is well supported by her current family system. Patient is able to do some household tasks, and occasionally drives. 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 She does have a granddaughter whom she has over at least every other week forward overnight, this is what she looks forward to. Medications/Allergies - Medications Home Medications: Ambulatory Orders Medication Instructions Recorded Confirmed Aspirin [Aspir-Low] 81 mg PO DAILY 04/27/15 02/06/20 Losartan Potassium 50 mg PO DAILY 04/27/15 02/06/20 Metformin HCl 1,000 mg PO BID 04/27/15 02/06/20 Metoprolol Tartrate 50 mg PO DAILY 04/27/15 02/06/20 Simvastatin 80 mg PO DAILY 04/27/15 02/06/20 Cyanocobalamin (Vitamin B-12) 1 tab PO DAILY 06/04/15 02/06/20 [Vitamin B12] Levothyroxine [Synthroid] 75 mcg PO DAILY 10/04/18 02/06/20 oxyCODONE [Roxicodone] 5 - 10 tab PO Q4HR PRN 01/24/19 02/06/20 Zolpidem [Ambien] 5 - 10 mg ORAL DAILY PM PRN 04/18/19 02/06/20 Albuterol Oral Soln 1 amp INH Q6HR PRN 05/30/19 02/06/20 Albuterol Sulfate [Proair Hfa 2 puffs INH Q4HR PRN 05/30/19 02/06/20 Inhaler] Morphine ER 15 mg PO QPM 11/14/19 02/06/20 polyethylene glycoL 3350 [Miralax] 8.5 - 17 mg PO DAILY 01/09/20 02/06/20 Gabapentin 300 mg PO BID 02/06/20 02/06/20 - Allergies Allergies/Adverse Reactions: Allergies Allergy/AdvReac Type Severity Reaction Status Date / Time No Known Drug Allergies Allergy Verified 12/12/19 11:40 Review of Systems - Constitutional Constitutional: reports: Fatigue (worsening), Weakness, Poor appetite, Weight stable. denies: Fever, Chills - Eyes Eyes: reports: Blurred vision, Vision loss - Ears, Nose & Throat Ears, Nose & Throat: reports: Hearing loss (mild). denies: Mouth lesions - Cardiovascular Cardiovascular: reports: Edema (worsened again), Exertional dyspnea, Decr. exercise tolerance - Respiratory Respiratory: reports: Cough, Sputum production (prod green yellow sputum), Wheezing, SOB at rest, SOB with exertion - Gastrointestinal Gastrointestinal: reports: Nausea (low grade), Poor appetite, Early satiety, Other (taste changes). denies: Constipation (doing better) - Genitourinary Genitourinary: reports: Frequency, Urgency, Incontinence (improved with timed toileting) - Musculoskeletal Musculoskeletal: reports: Stiffness, Muscle weakness, Assistive devices (using walker) - Integumentary Integumentary: reports: Dryness - Neurological Neurological: reports: General weakness, Numbness (bilateral peripheral neuropathy), Memory problems - Psychiatric Psychiatric: reports: Depression, Anxiety (worsening worried about getting advanced care planning documents done) - Endocrine Endocrine: reports: Diabetes type 2 (has returned up to higher level of previously ordereed metformin), Hypothyroidism - All Other Systems All Other Systems: reports: Reviewed and negative Physical Exam - Physical Exam General Appearance: positive: No acute distress, Alert Eyes Bilateral: positive: No scleral icterus, Other (periorbital edema) ENT: positive: No signs of dehydration Neck: positive: Trachea midline, Other (enlarged neck;) Cardiovascular: positive: Irregularly irregular Respiratory: positive: No respiratory distress, Diminished throughout. negative: Wheezes, Rales, Rhonchi Abdomen: positive: Non-tender, Soft, Obese Skin: positive: Pallor, Dryness, Other (feet dry and cracking) Extremities: positive: Pedal edema (improved; but still 1+) Neurologic/Psychiatric: positive: Oriented x3, Mood/affect nml, Weakness, Flat affect Palliative Care - POLST Patient has POLST: No Pain: Pain improved, Location (LE pain both numbness and peripheral neuropathy) Tiredness/Fatigue: Moderate (4-6) Drowsiness/Sedation: Moderate (4-6) Nausea: Mild (1-3) Anorexia: Moderate (4-6) Dyspnea: Severe (7-10) Depression: Moderate (4-6) Anxiety: Moderate (4-6) Feelings of wellbeing/Perceived Quality of Life: Fair, Acceptable, No change Sleep: Sleep improved Constipation: Yes, Opoid induced, Managed Performance Status: Patient is ambulatory with her walker, she does have poor activity tolerance. She is currently limited her own ADLs and some household tasks. She does have to pace these though to be able to tolerate increased activity. - Palliative Care Discussion: Patient is expressing wishes to be able to move forward on advanced care planning, she is getting quite anxious about not having this taken care of. She has decided on her friend to be her durable power of health state's attorney. She feels like she needs assistance to go through each of forms as well as decide and follow-up on cremation. We did discuss we can do this in the privacy of her own home, she does get quite overwhelmed and tearful regarding this, and does not want to do this and a public place. This will also facilitate conversation with her friend to be able to make sure she understands patient's wishes. We will plan to have a home visit next week, will contact her the beginning of the week for timing. Results - Lab Results Lab results reviewed: Yes Impression and Recommendations - Palliative Care Impression: This is a 69-year-old woman with metastatic lung cancer, continuing nivolumab every 2 weeks, with some mild symptoms of anorexia, taste changes, and musculoskeletal complaints. She is having slow functional decline, does have high symptom burden related to peripheral neuropathy, back pain, dyspnea, fatigue and depression. She does feel currently her pain regimen is managed acceptable. Palliative care continue to provide support for pain and symptom management, anticipatory guidance, and advanced care planning. Recommendations/Counseling Done: 1. CI PN. Having gone round several times regarding regimen, we are back on gabapentin, though she does still think it as some to her swelling, but does feel like it helps with her pain management. We will continue low-dose opioids, titrating to comfort, at this point in time she is using MS Contin just at bedtime, does not like it during the day felt too sedated, will respond with the oxycodone. Medications refilled, and regimen reviewed. 2. Constipation, opioid induced. Patient is using MiraLAX, feels like she is doing fine with that, has not initiated senna. She also feels increase her Metformin has added to her ability to have good bowel movements, as has had side effects of diarrhea in the past. 3. Lower extremity edema. Patient has not used furosemide for several months, she does present today with increased lower extremity swelling, we did discuss she is getting close to the point of discomfort and swelling, would recommend a few days of furosemide to decrease swelling. She is doing timed voiding which is helping with her main complaint which was incontinence. 4. Dyspnea. This is multifactorial, her COPD plays a large part in this. She did try some oxygen during the day with some improvement, I recommended to continue this, she still continues with scattered wheezes, is using her inhaler, has not used the nebulizer. She reports she has had less wheezing from our last visit, she does understand the role of the nebulizers to help move her secretions and make her cough easier. She has not followed through on a recommendation for flu shot, did check with her PCP office they are currently out. Recommended she get paperwork and schedule appointment at [facility]. 6. Anxiety. This is multifactorial, she continues to perceive her quality of life is acceptable, but does perceive she is declining. She reports she is now ready to start working on her advance care planning documents, we did set up an appointment next week to be able make a home visit. This actually will help as the person she is designated for her DPOA, is her roommate. She is looking forward to having is taking care of, she does feel like this will decrease her anxiety as she does recognize the seriousness of her illness but does not like to talk about it. Time Spent: 45 minutes with greater than 50% of this done in counseling regarding pain and symptom management, addressing depression and anxiety, and anticipatory guidance.
== END 2020-02-06 10:16 | disposition home or self-care (01) ==
LOC: PC 10:15
PROVIDERS: ATTEND Nurse Practitioner Adult Health
DX: Z51.5 Encounter for palliative care (principal); G89.3 Neoplasm related pain (acute) (chronic); G62.0 Drug-induced polyneuropathy; T45.1X5A Adverse effect of antineoplastic and immunosuppressive drugs, initial encounter; K59.03 Drug induced constipation; T40.2X5A Adverse effect of other opioids, initial encounter; R60.0 Localized edema; J44.9 Chronic obstructive pulmonary disease, unspecified; F41.9 Anxiety disorder, unspecified; C34.90 Malignant neoplasm of unspecified part of unspecified bronchus or lung; C78.02 Secondary malignant neoplasm of left lung; C78.01 Secondary malignant neoplasm of right lung; Z79.891 Long term (current) use of opiate analgesic; Z79.899 Other long term (current) drug therapy
CPT/HCPCS: 99214

== ENCOUNTER 2020-02-13 13:30 | Outpatient (CLI) | payer MEDICARE, OTHER ==
--- NOTE | 2020-02-13 21:36 | CONSULTATION NOTE ---
Palliative Care Follow Up - Referral Referring Provider: Yesenia Chase PA-C Time of Visit: [id number] Referral setting: Home Referral Reason: Advanced Care Planning/Lung CA - Information Sources Records reviewed: Previous records reviewed History/Review of Systems obtained from: Patient, Friend (Olivia present as asking her to be DPOA) Exam limitations: No limitations - History of Present Illness Update Brief HPI Update: This is a 69-year-old woman with metastatic lung cancer, involving bilateral lungs. She has been tolerating nivolumab which she has been on since 2017, every 2 weeks. She is starting to experience some persistent anorexia, taste changes, weight loss, and mild musculoskeletal complaints. She does have a very compromised lung status with severe dyspnea, underlying COPD, intermittent coughing spasms, and continues to smoke. Her dyspnea and neuropathy in her lower extremities, limit her functional activity and leads to sedentary life, which is frustrating to her. She also suffers from insomnia, short-term memory issues, and fluctuating lower extremity edema. Patient requested a home visit to be able to address her advance care planning, she is quite anxious about this. She reports she originally told she was 6 months to live, and has outlived this by 3 years. She does note that she is though "On borrowed time". She dario very tearful and easily overwhelmed, by medical jargon, complex problem solving, and very anxious about her decline in the future. She very much wants to continue to live as long as possible, for her granddaughter Juan Ramon whom she absolutely adores and lives for. Past Medical History: Diabetes type 2, hypothyroidism, COPD, lower extremity edema, insomnia, CHF, hypertension, high cholesterol, history of HI, incontinence, chronic vision loss, osteoarthritis, chronic back pain, history of a coronary stent Social History - Living Situation Living arrangement: At home Living Situation: With friend(s) Support System: Patient lives at home with her friend Olivia, they have an apartment that is of flight of stairs up. Patient only leaves the house for medical appointments, it is quite difficult for her to navigate. She does have a walker though that does assist with this. She has not had any falls. [place], she does have a daughter and her gran ddaughter. She feels her family is "too emotional", and her friend has agreed to be her DPOA if needed to make any decisions. But also to help her with her end-of-life arrangements. Medications/Allergies - Medications Home Medications: Ambulatory Orders Medication Instructions Recorded Confirmed Aspirin [Aspir-Low] 81 mg PO DAILY 04/27/15 02/06/20 Losartan Potassium 50 mg PO DAILY 04/27/15 02/06/20 Metformin HCl 1,000 mg PO BID 04/27/15 02/06/20 Metoprolol Tartrate 50 mg PO DAILY 04/27/15 02/06/20 Simvastatin 80 mg PO DAILY 04/27/15 02/06/20 Cyanocobalamin (Vitamin B-12) 1 tab PO DAILY 06/04/15 02/06/20 [Vitamin B12] Levothyroxine [Synthroid] 75 mcg PO DAILY 10/04/18 02/06/20 oxyCODONE [Roxicodone] 5 - 10 tab PO Q4HR PRN 01/24/19 02/06/20 Zolpidem [Ambien] 5 - 10 mg ORAL DAILY PM PRN 04/18/19 02/06/20 Albuterol Oral Soln 1 amp INH Q6HR PRN 05/30/19 02/06/20 Albuterol Sulfate [Proair Hfa 2 puffs INH Q4HR PRN 05/30/19 02/06/20 Inhaler] Morphine ER 15 mg PO QPM 11/14/19 02/06/20 polyethylene glycoL 3350 [Miralax] 8.5 - 17 mg PO DAILY 01/09/20 02/06/20 Gabapentin 300 mg PO BID 02/06/20 02/06/20 - Allergies Allergies/Adverse Reactions: Allergies Allergy/AdvReac Type Severity Reaction Status Date / Time No Known Drug Allergies Allergy Verified 12/12/19 11:40 Review of Systems - Constitutional Constitutional: reports: Fatigue (worsening), Weakness, Poor appetite, Weight loss. denies: Fever, Chills - Eyes Eyes: reports: Blurred vision, Vision loss - Ears, Nose & Throat Ears, Nose & Throat: reports: Hearing loss (mild), Other (c/o taste changes; meat aversion). denies: Mouth lesions - Cardiovascular Cardiovascular: reports: Edema, Exertional dyspnea, Decr. exercise tolerance. denies: Chest pain - Respiratory Respiratory: reports: Cough, Sputum production (prod green yellow sputum), Whe ezing, SOB at rest, SOB with exertion - Gastrointestinal Gastrointestinal: reports: Nausea (low grade), Poor appetite, Early satiety, Other (taste changes). denies: Constipation (doing better) - Genitourinary Genitourinary: reports: Frequency, Urgency, Incontinence (improved with timed toileting) - Musculoskeletal Musculoskeletal: reports: Back pain, Stiffness, Muscle weakness, Assistive devices (using walker) - Integumentary Integumentary: reports: Dryness - Neurological Neurological: reports: General weakness, Numbness (bilateral peripheral neuropathy), Memory problems - Psychiatric Psychiatric: reports: Depression, Anxiety (worsening worried about getting advanced care planning documents done) - Endocrine Endocrine: reports: Diabetes type 2 (has returned up to higher level of previously ordereed metformin), Hypothyroidism - All Other Systems All Other Systems: reports: Reviewed and negative Physical Exam - Vital Signs Temperature: 96.8 C Pulse Rate: 67 Respiratory Rate: 18 O2 Saturation: 95 (ra @ rest) Blood Pressure: 102/62 - Physical Exam General Appearance: positive: No acute distress, Alert Eyes Bilateral: positive: No scleral icterus, Other (periorbital edema) ENT: positive: No signs of dehydration Neck: positive: Trachea midline, Other (enlarged neck;) Cardiovascular: positive: Irregularly irregular Respiratory: positive: No respiratory distress, Diminished throughout, Wheezes (RLL expiratory high pitched). negative: Rales, Rhonchi Abdomen: positive: Non-tender, Soft, Obese Skin: positive: Pallor, Dryness, Other (feet dry and cracking) Extremities: positive: Pedal edema (improved; but still 1+) Neurologic/Psychiatric: positive: Oriented x3, Mood/affect nml, Weakness, Flat affect Palliative Care - POLST Patient has POLST: Yes POLST Status: DNR, Selective Treatment Pain: Pain improved, Location (Patient on MS Contin 15 mg at bedtime, takes oxycodone 10 mg 2-3 times during the day. Has restarted gabapentin 300 mg twice daily with better relief. Pain continue fluctuates, sharp shooting in nature. 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 This she does spend most the time on the couch, she is able to ambulate around her apartment. She does bathe but it is with great energy. She does do some household tasks. She only leaves the home because of the stairs, uses a walker to get to the car, and is out for medical appointments only. - Palliative Care Discussion: Patient is expressed that she wants to get her affairs in order, she finds this very emotional and does not want to express this in front of anybody. We also were going to meet because her roommate, Olivia, is to be her DPOA. Patient is very clear that she has out lasted her prognosis, but is still hoping for continued quantity and quality of life. She lives for her granddaughter Juan Ramon. They have a brandi relationship and she sees her at least weekly and for overnights. We did complete a DURABLE POWER OF ENVIRONMENTAL CONFLICT MANAGER, with an integrated living directive. Patient would accept help/hospitalization for several conditions but does not want any heroics. We also discussed at length given the severity of her illnesses she would be a DNA R/DNI. She would like to be treated for reversible conditions, but is very clear it is important for her to be independent and not dependent on others. Her neighbor is a pricing clerk, she will have this notarized and bring a copy for the records. We also completed a POLST with DNA R/DNI and selective treatments. Her goals include continuing as best she can at her current level of functioning, she still perceives this is quality of life. She does understand if she would decline and transition to hospice she would hope for a at home if possible. She has had some experiences her self with hospice and , she very much wants to be as alert as possible and not sedated at end-of-life. She would also like to be cremated, we did discuss [facility] as an option particularly given her financial situation. She is designated her sister as the person to be in charge of her remains. We discussed other things, she does not have a significant amount of belongings, she is encouraged to have someone added to her bank accounts if she were unable to access them, to pay bills, and 4 at time of . We also recommended she make a well, she has mostly sentimental belongings, she will write this out in a directive statement. Impression and Recommendations - Palliative Care Impression: This is a 69-year-old woman with metastatic lung cancer, continuing on nivolumab every 2 weeks. She has had slow functional decline, high symptom burden specific to peripheral neuropathy, back pain, dyspnea, fatigue and anxiety. One of her anxiety points is completing her advance care planning documents, have arranged for home visit with her designated DPOA and completed DPOA/directive and POLST. Facilitated conversation regarding patient's end-of-life wishes with DPOA. Palliative care to continue to provide support for pain and symptom management and transition to hospice when appropriate Recommendations/Counseling Done: 1. Peripheral neuropathy. Patient's pain currently well controlled on her current regimen. She does not feel like any changes are needed at this point. Continue with current plan of care. 2. Insomnia. Patient is consistently taking 2 Ambien 5 mg at bedtime, but finding this is adequate. This is impacted and improved her sleep. Her sleep patterns are complex given her history of a building services coordinator, she does go to bed very late and sleeps late in the morning. We will go ahead and order Ambien 10 mg to decrease pill burden, and address insurance issues. 3. Anxiety. 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 Does feel better by end of visit with documents completed. 4. Advanced care planning. Counseling provided regarding the spectrum of end-of-life documents needed, planning for DPOA/living will, completion of POLST as well as discussion regarding arrangements and recommendations for next steps. Time Spent: 60 minutes with greater than 50% of this done in counseling regarding advanced care planning, goals of care, and and anticipatory guidance both with patient and DPOA.
== END 2020-02-13 13:31 | disposition home or self-care (01) ==
LOC: PC 13:30
PROVIDERS: ATTEND Nurse Practitioner Adult Health
DX: Z51.5 Encounter for palliative care (principal); E11.42 Type 2 diabetes mellitus with diabetic polyneuropathy; G47.00 Insomnia, unspecified; F41.9 Anxiety disorder, unspecified; C34.92 Malignant neoplasm of unspecified part of left bronchus or lung; C34.91 Malignant neoplasm of unspecified part of right bronchus or lung; J44.9 Chronic obstructive pulmonary disease, unspecified; I11.0 Hypertensive heart disease with heart failure; I50.9 Heart failure, unspecified; F17.200 Nicotine dependence, unspecified, uncomplicated; Z79.84 Long term (current) use of oral hypoglycemic drugs; Z79.899 Other long term (current) drug therapy; Z66 Do not resuscitate
CPT/HCPCS: 99350

== ENCOUNTER 2020-03-05 12:56 | Outpatient (CLI) | payer MEDICARE, OTHER ==
--- NOTE | 2020-03-05 14:10 | CONSULTATION NOTE ---
Palliative Care Follow Up - Referral Referring Provider: Yesenia Chase PA-C Time of Visit: [id number] Referral setting: [facility] [place] Referral Reason: Depression/CIPN/Lung CA/COPD - Information Sources Records reviewed: RN notes reviewed, Previous records reviewed History/Review of Systems obtained from: Patient Exam limitations: No limitations - History of Present Illness Update Brief HPI Update: This is a brandi 69-year-old woman with metastatic lung cancer, involving bilateral lungs. She has been tolerating nivolumab which she has been on since 2017, every 2 weeks. Though she does experience some persistent anorexia, taste changes, and mild musculoskeletal complaints. She has very compromised lung status with severe dyspnea, underlying COPD, intermittent coughing spasms and continues to smoke. She has noted some increased cough, with increased sputum production of greenish-yellow, does not feel like she is getting ill, she is able to clear her secretions. She also uses her inhalers with relief, denies feeling tight or wheezy. Her dyspnea and neuropathy in her lower extremities limit her functional activity, and leads to fairly sedentary life which is frustrating for her. She also has insomnia, short-term memory issues, peripheral neuropathy, and fluctuating lower extremity edema. I had done a home visit mid February, per her request to complete her advance planning documents. We completed these, and she did get them notarized, copy has been provided for her medical record. She has completed a POLST with DN AR and selective treatments. Past Medical History: Diabetes type 2, hypothyroidism, COPD, lower extremity edema, insomnia, CHF, hypertension, high cholesterol, history of CA, incontinence, chronic vision loss, osteoarthritis, chronic back pain, history of coronary stent Social History - Living Situation Living arrangement: At home Living Situation: With friend(s) Support System: Patient lives in her home with her friend PARKER, they have an apartment that is a flight of stairs up. She only leaves the house for medical appointments. She does have support from her sisters, as well as daughter and granddaughter. 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 Her daughter does come and help clean every 2 weeks, otherwise she is managing her own ADLs. Her roommate, does the shopping, and many of the household tasks, and intermittent transportation support Medications/Allergies - Medications Home Medications: Ambulatory Orders Medication Instructions Recorded Confirmed Aspirin [Aspir-Low] 81 mg PO DAILY 04/27/15 02/20/20 Losartan Potassium 50 mg PO DAILY 04/27/15 02/20/20 Metformin HCl 1,000 mg PO BID 04/27/15 02/20/20 Metoprolol Tartrate 50 mg PO DAILY 04/27/15 02/20/20 Simvastatin 80 mg PO DAILY 04/27/15 02/20/20 Cyanocobalamin (Vitamin B-12) 1 tab PO DAILY 06/04/15 02/20/20 [Vitamin B12] Levothyroxine [Synthroid] 75 mcg PO DAILY 10/04/18 02/20/20 oxyCODONE [Roxicodone] 5 - 10 tab PO Q4HR PRN 01/24/19 02/20/20 Zolpidem [Ambien] 5 - 10 mg ORAL DAILY PM PRN 04/18/19 02/20/20 Albuterol Oral Soln 1 amp INH Q6HR PRN 05/30/19 02/20/20 Albuterol Sulfate [Proair Hfa 2 puffs INH Q4HR PRN 05/30/19 02/20/20 Inhaler] Morphine ER 15 mg PO QPM 11/14/19 02/20/20 polyethylene glycoL 3350 [Miralax] 8.5 - 17 mg PO DAILY 01/09/20 02/20/20 Gabapentin 300 mg PO BID 02/06/20 02/20/20 - Allergies Allergies/Adverse Reactions: Allergies Allergy/AdvReac Type Severity Reaction Status Date / Time No Known Drug Allergies Allergy Verified 02/20/20 14:03 Review of Systems - Constitutional Constitutional: reports: Fatigue (worsening), Weakness, Poor appetite, Weight loss. denies: Fever, Chills - Eyes Eyes: reports: Blurred vision, Vision loss - Ears, Nose & Throat Ears, Nose & Throat: reports: Hearing loss (mild), Other (c/o taste changes; meat aversion). denies: Mouth lesions - Cardiovascular Cardiovascular: reports: Palpitations, Edema, Exertional dyspnea, Decr. exercise tolerance - Respiratory Respiratory: reports: Cough, Sputum production (prod green yellow sputum; increae over last few weeks), Wheezing, SOB at rest, SOB with exertion, Other (uses oxygen at night;) - Gastrointestinal Gastrointestinal: reports: Nausea (low grade), Poor appetite, Early satiety, Other (taste changes). denies: Constipation (doing better with Miralax; going every 2-3 days) - Genitourinary Genitourinary: reports: Frequency, Urgency, Incontinence (improved with timed toileting) - Musculoskeletal Musculoskeletal: reports: Back pain, Stiffness, Muscle weakness, Assistive devices (using walker) - Integumentary Integumentary: reports: Dryness - Neurological Neurological: reports: General weakness, Numbness (bilateral peripheral neuropathy), Memory problems - Psychiatric Psychiatric: reports: Depression, Anxiety - Endocrine Endocrine: reports: Diabetes type 2 (has returned up to higher level of previously ordereed metformin), Hypothyroidism - All Other Systems All Other Systems: reports: Reviewed and negative Physical Exam - Vital Signs Temperature: 36.4 C Pulse Rate: 86 Respiratory Rate: 20 Blood Pressure: 134/67 - Physical Exam General Appearance: positive: No acute distress, Alert Eyes Bilateral: positive: No scleral icterus, Other (periorbital edema) ENT: positive: No signs of dehydration Neck: positive: Trachea midline, Other (enlarged neck;) Cardiovascular: positive: Irregularly irregular Respiratory: positive: No respiratory distress, Diminished throughout, Wheezes (scattered throughout; few). negative: Rales, Rhonchi Abdomen: positive: Soft, Obese Skin: positive: Pallor, Dryness Extremities: positive: Pedal edema (improved; but still 1+) Neurologic/Psychiatric: positive: Oriented x3, Mood/affect nml, Weakness, Flat affect Palliative Care - POLST Patient has POLST: Yes POLST Status: DNR, Selective Treatment Pain: Pain unchanged, Location (low back; feet), Severity (3/10- up to 8/10 before morphine in evenings) Tiredness/Fatigue: Moderate (4-6) Drowsiness/Sedation: Moderate (4-6) Nausea: Mild (1-3) Anorexia: Mild (1-3) Dyspnea: Severe (7-10) Depression: Mild (1-3) Anxiety: Mild (1-3) Feelings of wellbeing/Perceived Quality of Life: Fair, Acceptable, Worsening Sleep: Variable sleep pattern Constipation: Yes, Opoid induced, Managed Performance Status: Patient is quite sedentary, though is able to manage her ADLs. She can do some household tasks if paces herself. She likes to watch TV, does spend most of her time on the couch, does sleep in her bed though with oxygen. - Palliative Care Discussion: Patient had requested home visit with DPOA her friend Olivia, to be able to complete. She did get her advanced directives notarized, we had completed a POLST with DN AR/selective treatments. She does feel like she is coming to the down side of her illness, recognizing that she has actually had fairly good quantity and quality of life. She is doing it" her own way" as far as saying goodbyes and making sure she has no regrets. Did spend time does reflecting on some of the work that she is doing around this, encouraged to continue as it is bringing her some peace of mind. Impression and Recommendations - Palliative Care Impression: This a 69-year-old woman with metastatic lung cancer, continuing on nivolumab every 2 weeks. She has had slow functional decline, high symptom burden specific to her peripheral neuropathy, back pain, dyspnea, fatigue, and anxiety. Her pain is currently controlled on her regimen, she does titrate her gabapentin morphine and oxycodone accordingly. Palliative care to continue provide support for pain and symptom management, anticipatory guidance, and transition to hospice when appropriate Recommendations/Counseling Done: 1. Peripheral neuropathy. Patient currently using gabapentin 300 mg in the a.m. with oxycodone, and morphine 50 mg in the evening, does find that this currently is managing without problems. She does titrate accordingly, and is appropriate within the guidelines provided. Continue with current plan of care. 2. Insomnia. 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 No changes needed. 3. Anxiety. This is multifactorial, was able to complete her advance care planning documents, continue to explore things that are causing anxiety for her, and ways to address this. Patient is not interested in any antidepressant/antianxiety medication. Counseling provided for psychosocial support. 4. Advanced care planning. Counseling provided in regarding completion of POLST, did complete living will and DPOA. Copies provided, she had gotten it notarized, will get to [place] M. Counseling provided regarding completing some of her goals, and approaches with her family, she is feeling good about the work that she is doing regarding this. Time Spent: 45 minutes with greater than 50% of this done in counseling regarding pain and symptom management, advanced care planning, and anticipatory guidance and counseling for anxiety.
== END 2020-03-05 12:57 | disposition home or self-care (01) ==
LOC: PC 12:56
PROVIDERS: ATTEND Nurse Practitioner Adult Health
DX: Z51.5 Encounter for palliative care (principal); E11.42 Type 2 diabetes mellitus with diabetic polyneuropathy; G47.00 Insomnia, unspecified; F41.9 Anxiety disorder, unspecified; I11.0 Hypertensive heart disease with heart failure; I50.9 Heart failure, unspecified; C34.92 Malignant neoplasm of unspecified part of left bronchus or lung; C34.91 Malignant neoplasm of unspecified part of right bronchus or lung; J44.9 Chronic obstructive pulmonary disease, unspecified; F17.200 Nicotine dependence, unspecified, uncomplicated; Z79.84 Long term (current) use of oral hypoglycemic drugs; Z79.899 Other long term (current) drug therapy; Z66 Do not resuscitate
CPT/HCPCS: 99215

== ENCOUNTER 2020-04-02 12:45 | Outpatient (CLI) | payer MEDICARE, OTHER ==
--- NOTE | 2020-04-02 19:03 | CONSULTATION NOTE ---
Palliative Care Follow Up - Referral Referring Provider: Yesenia Chase PA-C Time of Visit: 1130-12 [place] [facility] [place] Reason: CIPN/Lung CA/Fatigue - Information Sources Records reviewed: Previous records reviewed History/Review of Systems obtained from: Patient Exam limitations: No limitations - History of Present Illness Update Brief HPI Update: This is a brandi 69-year-old woman with metastatic lung cancer involving both lungs. She has been tolerating the nivolumab since she has been on it in 2017, every 2 weeks. She does experience some persistent anorexia, taste changes, and mild musculoskeletal complaints. She has very compromised lung status with severe dyspnea, underlying COPD, intermittent coughing spasms and continues to smoke. She does have garcia sputum, but has not felt like she is had any illnesses. She very much had a fabulous Lewis, her spirits are up, she is bright and engaged. She continues with severe peripheral neuropathy, she is found to balance with the morphine 15 mg extended release twice daily, gabapentin 300 mg twice daily, and oxycodone for breakthrough pain. 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 Past Medical History: Diabetes type 2, hypothyroidism, COPD, lower extremity edema, insomnia, CHF, hypertension, high cholesterol, history of MT, incontinence, chronic vision loss, osteoarthritis, chronic back pain, history of coronary stent Social History - Living Situation Living arrangement: At home Living Situation: With friend(s) (Patient lives in her own home, with her friend Olivia, they do have an apartment which is a flight of stairs up. She leaves the house for medical appointments, occasionally for shopping. She does have support from her sisters as well as her daughter. Her granddaughter Juan Ramon is a apple of her eye) Medications/Allergies - Medications Home Medications: Ambulatory Orders Medication Instructions Recorded Confirmed Aspirin [Aspir-Low] 81 mg PO DAILY 04/27/15 04/02/20 Losartan Potassium 50 mg PO DAILY 04/27/15 04/02/20 Metformin HCl 1,000 mg PO BID 04/27/15 04/02/20 Metoprolol Tartrate 50 mg PO DAILY 04/27/15 04/02/20 Simvastatin 80 mg PO DAILY 04/27/15 04/02/20 Cyanocobalamin (Vitamin B-12) 1 tab PO DAILY 06/04/15 04/02/20 [Vitamin B12] Levothyroxine [Synthroid] 75 mcg PO DAILY 10/04/18 04/02/20 oxyCODONE [Roxicodone] 5 - 10 tab PO Q4HR PRN 01/24/19 04/02/20 Zolpidem [Ambien] 5 - 10 mg ORAL DAILY PM PRN 04/18/19 04/02/20 Albuterol Oral Soln 1 amp INH Q6HR PRN 05/30/19 04/02/20 Albuterol Sulfate [Proair Hfa 2 puffs INH Q4HR PRN 05/30/19 04/02/20 Inhaler] Morphine ER 15 mg PO BID 11/14/19 04/02/20 polyethylene glycoL 3350 [Miralax] 8.5 - 17 mg PO DAILY PRN 01/09/20 04/02/20 Gabapentin 300 mg PO BID 02/06/20 04/02/20 - Allergies Allergies/Adverse Reactions: Allergies Allergy/AdvReac Type Severity Reaction Status Date / Time No Known Drug Allergies Allergy Verified 02/20/20 14:03 Review of Systems - Constitutional Constitutional: reports: Fatigue (worsening), Weakness, Poor appetite, Weight loss. denies: Fever, Chills - Eyes Eyes: reports: Blurred vision, Vision loss - Ears, Nose & Throat Ears, Nose & Throat: reports: Hearing loss (mild), Dentures. denies: Mouth lesions - Cardiovascular Cardiovascular: reports: Edema, Exertional dyspnea, Decr. exercise tolerance - Respiratory Respiratory: reports: Cough, Sputum production (javed sputum), Wheezing, SOB at rest, SOB with exertion, Other (uses oxygen at night;) - Gastrointestinal Gastrointestinal: reports: Nausea (low grade), Poor appetite, Early satiety, Other (taste changes). denies: Constipation (doing better with Miralax; going every 2-3 days) - Genitourinary Genitourinary: reports: Frequency, Urgency, Incontinence (improved with timed toileting) - Musculoskeletal Musculoskeletal: reports: Back pain, Stiffness, Muscle weakness, Assistive devices (using walker) - Integumentary Integumentary: reports: Dryness - Neurological Neurological: reports: General weakness, Numbness (bilateral peripheral neuropathy), Memory problems - Psychiatric Psychiatric: reports: Depression, Anxiety - Endocrine Endocrine: reports: Diabetes type 2 (has returned up to higher level of previously ordereed metformin), Hypothyroidism - All Other Systems All Other Systems: reports: Reviewed and negative Physical Exam - Vital Signs Pulse Rate: 80 Respiratory Rate: 18 Blood Pressure: 113/59 - Physical Exam General Appearance: positive: No acute distress, Alert Eyes Bilateral: positive: No scleral icterus, Other (periorbital edema) ENT: positive: No signs of dehydration Neck: positive: Trachea midline, Other (enlarged neck;) Cardiovascular: positive: Irregularly irregular Respiratory: positive: No respiratory distress, Diminished throughout, Wheezes (scattered throughout; few). negative: Rales, Rhonchi Abdomen: positive: Soft, Obese Skin: positive: Pallor, Dryness Extremities: positive: Pedal edema (improved; but still 1+) Neurologic/Psychiatric: positive: Oriented x3, Mood/affect nml, Weakness, Flat affect Palliative Care - POLST Patient has POLST: Yes POLST Status: DNR, Selective Treatment Pain: Pain unchanged, Location (feet peripheral neuropathy;), Severity (09/12), Comment (Patient currently using MS Contin 15 mg twice daily with her gabapentin 300 mg twice daily and oxycodone 5 mg up to 3-4 times a day) Tiredness/Fatigue: Moderate (4-6) Drowsiness/Sedation: Severe (7-10) (sleep wake cycles hard) Nausea: None Anorexia: Moderate (4-6), Weight loss Dyspnea: Severe (7-10) (very limiting; with any activity) Depression: Moderate (4-6) Anxiety: Moderate (4-6) Feelings of wellbeing/Perceived Quality of Life: Fair, Acceptable, No change Constipation: Yes, Opoid induced, Intermittent constipation Performance Status: Patient still has significant activity intolerance, this is mostly related to her dyspnea and impacted by her peripheral neuropathy. She does manage her ADLs, though needs to pace herself. She does use a walker when she is out and to navigate the stairs. I would put her at a PPS of 70% - Palliative Care Discussion: Patient was able to locate a kitten for her granddaughter, this just made her holiday. She reports they had a perfect holiday, she very much wanted to make good memories for her granddaughter, continues to recognize the seriousness of her illness. She is remaining quite hopeful, but also is realistic given her underlying health status. We did have a family meeting 2 visits ago, and did complete her POLST with DO NOT RESUSCITATE, and selective treatments and a signed DURABLE POWER OF ELECTRICAL CHECKOUT MECHANIC to her friend Olivia DOMINGUEZ TT ON :[id number] Results - Lab Results Lab results reviewed: Yes Impression and Recommendations - Palliative Care Impression: This is a 69-year-old woman with metastatic lung cancer, continuing on nivolumab every 2 weeks. She does have ongoing slow functional decline, high symptom burden specifically her new peripheral neuropathy, underlying dyspnea, persistent fatigue and anxiety. She is managing her pain appropriately on her current regimen, and presents doing well today. Palliative care to continue provide support for pain and symptom management, anticipatory guidance, and transition to hospice when appropriate Recommendations/Counseling Done: 1. Peripheral neuropathy. Patient currently using gabapentin 300 mg twice daily and morphine 15 mg twice daily, using oxycodone 5 mg up to 3-4 times a day to manage her pain. She does titrate accordingly and appropriate within guidelines provided. She is currently satisfied with her current regimen. 2. Insomnia. 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 At this point in time no further changes needed. 3. Depression. Patient feels currently is managing well, continues to set goals for self. Does spend time in energy planning for her brandi granddaughter Juan Ramon, had a brandi Lewis and is still feeling quite high from this. Continue provide support for both anxiety and depression with counseling and psychosocial support. 4. Advanced care planning. Patient has completed advance care planning documents, continues to work her way through completing tasks that are meaningful her around end-of-life and approaches with her family. She is doing some brandi Legacy and memory making work, positive reinforcement provided. Time Spent: 30 minutes with greater than 50% of this done in counseling regarding pain and symptom management, providing psychosocial support, and anticipatory guidance. We will continue to meet monthly.
== END 2020-04-02 12:46 | disposition home or self-care (01) ==
LOC: PC 12:45
PROVIDERS: ATTEND Nurse Practitioner Adult Health
DX: Z51.5 Encounter for palliative care (principal); G62.0 Drug-induced polyneuropathy; R63.0 Anorexia; R43.9 Unspecified disturbances of smell and taste; T45.1X5A Adverse effect of antineoplastic and immunosuppressive drugs, initial encounter; R06.00 Dyspnea, unspecified; G47.00 Insomnia, unspecified; J44.9 Chronic obstructive pulmonary disease, unspecified; F17.200 Nicotine dependence, unspecified, uncomplicated; E11.9 Type 2 diabetes mellitus without complications; K59.03 Drug induced constipation; T40.2X5D Adverse effect of other opioids, subsequent encounter; F32.9 Major depressive disorder, single episode, unspecified; F41.9 Anxiety disorder, unspecified; C78.02 Secondary malignant neoplasm of left lung; C78.01 Secondary malignant neoplasm of right lung; Z79.899 Other long term (current) drug therapy; Z79.84 Long term (current) use of oral hypoglycemic drugs; Z79.891 Long term (current) use of opiate analgesic; Z99.81 Dependence on supplemental oxygen; Z66 Do not resuscitate
CPT/HCPCS: 99214

== ENCOUNTER 2020-04-30 11:00 | Outpatient (CLI) | payer MEDICARE, OTHER ==
--- NOTE | 2020-04-30 17:51 | CONSULTATION NOTE ---
Palliative Care Follow Up - Referral Referring Provider: Yesenia Chase PA-C Time of Visit: [id number] Ref[place] setting: [facility] [place] Reason: CIPN/COPD/Met Lung CA/Anxiety - Information Sources Records reviewed: Previous records reviewed History/Review of Systems obtained from: Patient Exam limitations: No limitations - History of Present Illness Update Brief HPI Update: This is a brandi 69-year-old woman with metastatic lung cancer, involving both lungs. She has been tolerating nivolumab since she started it in 2017, every other week. She does have persistent anorexia, taste changes, mild musculoskeletal complaints, and now presents today with persistent rash on left hand and right thigh. She does have underlying severe COPD, with intermittent coughing spasms, continues to smoke, reports her sputum has cleared up and is clear to light yellow. She reports since we last met, she did have the flu 2 weeks ago, with severe diarrhea, and vomiting. This is since cleared, her roommate got it as well, she did lose weight from 208-204. She continues with persistent taste changes, low-grade nausea, and poor intake. Patient has significant severe peripheral neuropathy, she is currently doing well with morphine 15 mg extended release twice daily, gabapentin 300 mg twice daily, and Oxycodone 5 mg up to 3 times a day. 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 Her spirits are bright today, she continues to very much enjoy her time with her granddaughter Juan Ramon. She has a love of her life, and her goal to continue treatment and keep going. Past Medical History: Type 2 diabetes, hypothyroidism, COPD, lower extremity edema, insomnia, CHF, hypertension, high cholesterol, history of MN, incontinence, chronic vision loss, osteoarthritis, chronic back pain, history of coronary stent Social History - Living Situation Living arrangement: At home (Patient lives in her own home, and apartment she is renting with her friend Olivia, she does leave the house for medical appointments, and occasional shopping. They are very good friends as well as Olivia provides support around household/IADLs) Living Situation: With friend(s) (Patient lives in her own home, with her friend Olivia, they do have an apartment which is a flight of stairs up. She leaves the house for medical appointments, occasionally for shopping. She does have support from her sisters as well as her daughter. Her granddaughter Juan Ramon is a apple of her eye) Medications/Allergies - Medications Home Medications: Ambulatory Orders Medication Instructions Recorded Confirmed Aspirin [Aspir-Low] 81 mg PO DAILY 04/27/15 04/30/20 Losartan Potassium 50 mg PO DAILY 04/27/15 04/30/20 Metformin HCl 1,000 mg PO BID 04/27/15 04/30/20 Metoprolol Tartrate 50 mg PO DAILY 04/27/15 04/30/20 Simvastatin 80 mg PO DAILY 04/27/15 04/30/20 Cyanocobalamin (Vitamin B-12) 1 tab PO DAILY 06/04/15 04/30/20 [Vitamin B12] Levothyroxine [Synthroid] 75 mcg PO DAILY 10/04/18 04/30/20 oxyCODONE [Roxicodone] 5 - 10 tab PO Q4HR PRN 01/24/19 04/30/20 Zolpidem [Ambien] 5 - 10 mg ORAL DAILY PM PRN 04/18/19 04/30/20 Albuterol Oral Soln 1 amp INH Q6HR PRN 05/30/19 04/30/20 Albuterol Sulfate [Proair Hfa 2 puffs INH Q4HR PRN 05/30/19 04/30/20 Inhaler] Morphine ER 15 mg PO BID 11/14/19 04/30/20 polyethylene glycoL 3350 [Miralax] 8.5 - 17 mg PO DAILY PRN 01/09/20 04/30/20 Gabapentin 300 mg PO BID 02/06/20 04/30/20 - Allergies Allergies/Adverse Reactions: Allergies Allergy/AdvReac Type Severity Reaction Status Date / Time No Known Drug Allergies Allergy Verified 02/20/20 14:03 Review of Systems - Constitutional Constitutional: reports: Fatigue (worsening), Weakness, Poor appetite, Weight loss (204). denies: Fever, Chills - Eyes Eyes: reports: Blurred vision (eyes get bleary; strain of TV), Vision loss - Ears, Nose & Throat Ears, Nose & Throat: reports: Hearing loss (mild), Dentures. denies: Mouth lesions - Cardiovascular Cardiovascular: reports: Edema, Exertional dyspnea, Decr. exercise tolerance. denies: Palpitations, Chest pain - Respiratory Respiratory: reports: Cough, Sputum production (clear/yellow tinged), Wheezing, SOB at rest, SOB with exertion, Other (uses oxygen at night;) - Gastrointestinal Gastrointestinal: reports: Nausea (low grade), Reflux/heartburn (new symptom; fairly persistent), Poor appetite, Early satiety, Other (taste changes). denies: Constipation (doing better with Miralax; going every 2-3 days) - Genitourinary Genitourinary: reports: Frequency, Urgency, Incontinence (improved with timed toileting) - Musculoskeletal Musculoskeletal: reports: Back pain, Stiffness, Muscle weakness, Assistive devices (using walker) - Integumentary Integumentary: reports: Dryness - Neurological Neurological: reports: General weakness, Numbness (bilateral peripheral neuropathy; reports NEW numbness in outer fingers of both hands; interfering with some fine motor activities), Memory problems - Psychiatric Psychiatric: reports: Depression, Anxiety - Endocrine Endocrine: reports: Diabetes type 2 (has returned up to higher level of previously ordereed metformin), Hypothyroidism - All Other Systems All Other Systems: reports: Reviewed and negative Physical Exam - Vital Signs Temperature: 97.3 C Pulse Rate: 72 Respiratory Rate: 20 O2 Saturation: 96 (ra @ rest) Blood Pressure: 113/69 - Physical Exam General Appearance: positive: No acute distress, Alert Eyes Bilateral: positive: No scleral icterus, Other (periorbital edema) ENT: positive: No signs of dehydration Neck: positive: Trachea midline, Other (enlarged neck;) Cardiovascular: positive: Irregularly irregular Respiratory: positive: No respiratory distress, Diminished throughout, Wheezes (scattered throughout; right greater than left). negative: Rales, Rhonchi Abdomen: positive: Soft, Obese Skin: positive: Pallor, Dryness, Rash (has raised plaques on left hand; some dull pink; has some on right thigh; no open or s/s cellulitis; does not appear medication related) Extremities: positive: Pedal edema (improved; but still 1+) Neurologic/Psychiatric: positive: Oriented x3, Mood/affect nml, Weakness, Flat affect Palliative Care - POLST Patient has POLST: Yes POLST Status: DNR, Selective Treatment Pain: Pain worsening, Location (Feet/low back), Severity (mod/severe) Tiredness/Fatigue: Severe (7-10) Drowsiness/Sedation: Moderate (4-6) Nausea: Mild (1-3) Anorexia: Moderate (4-6), Weight loss Dyspnea: Severe (7-10) Depression: Mild (1-3) Anxiety: Mild (1-3) Feelings of wellbeing/Perceived Quality of Life: Fair, Acceptable, Worsening Sleep: Sleeps poorly, Variable sleep pattern Constipation: Yes, Opoid induced, Managed Performance Status: Patient remains quite sedentary, she is able to manage her own ADLs but has to pace herself. Her roommate does much of the household tasks, though she does try and participate when she is feeling up to it. - Palliative Care Discussion: Patient continues to be grateful for the time she has been given, understands it is extended beyond what her original prognosis was. She tries to find the positive, she has a weakened sense of humor, though she does find pain is limited as she is with her dyspnea and sedentary state quite discouraging. She has taking care of all her end-of-life tasks that were on her list, and feels like things are going fairly well overall. Impression and Recommendations - Palliative Care Impression: This is a 69-year-old woman with metastatic lung cancer, continuing on her nivolumab every 2 weeks. She is having ongoing functional decline, high symptom burden specifically related to her peripheral neuropathy apathy, dyspnea, persistent fatigue and anorexia. She is managing her pain appropriately on her current regimen. Palliative care continue to provide support for pain and symptom management anticipatory guidance and transition to hospice when appropriate Recommendations/Counseling Done: 1. Peripheral neuropathy. Patient currently using gabapentin 300 mg twice a day, morphine 15 mg extended release twice daily, using oxycodone 5 mg up to 3-4 times a day to manage her pain. She does titrate accordingly and appropriately within guidelines provided. She is satisfied with her current pain regimen. She has noted new peripheral neuropathy symptoms in her outer 2 fingers, impacting fine motor movement. 2. Rash. Patient has had triamcinolone cream in the past with good response. Patient has been instructed to massage into the rash area twice a day for 2 weeks on then 1 week off and repeat if necessary. She is to notify me if it does worsen, at this point it looks more related to eczema versus immunotherapy side effect. 3. GERD. Patient presents with some persistent heartburn, this is new symptom for her. She is using intermittent Tums. She is been asked to call me if it is persistent. 4. Health maintenance. Patient encouraged to sign up for Covid shot. Counseling provided regarding information. 5. Advanced care planning. Patient is completed her advance care planning documents, continuing to do some Legacy and memory making work, she is quite proud of what she has accomplished, positive reinforcement provided. Continuing to support patient and anticipatory guidance, answering questions as they arise. Time Spent: 45 minutes with greater than 50% of this done in counseling regarding pain and symptom management, addressed questions regarding anxiety and depression, as well as anticipatory guidance.
== END 2020-04-30 11:01 | disposition home or self-care (01) ==
LOC: PC 11:00
PROVIDERS: ATTEND Nurse Practitioner Adult Health
DX: Z51.5 Encounter for palliative care (principal); E11.42 Type 2 diabetes mellitus with diabetic polyneuropathy; R21 Rash and other nonspecific skin eruption; K21.9 Gastro-esophageal reflux disease without esophagitis; C34.92 Malignant neoplasm of unspecified part of left bronchus or lung; C34.91 Malignant neoplasm of unspecified part of right bronchus or lung; F17.200 Nicotine dependence, unspecified, uncomplicated; Z79.84 Long term (current) use of oral hypoglycemic drugs; Z79.899 Other long term (current) drug therapy; Z66 Do not resuscitate
CPT/HCPCS: 99215

== ENCOUNTER 2020-05-28 11:35 | Outpatient (CLI) | payer MEDICARE, OTHER ==
--- NOTE | 2020-05-28 18:11 | CONSULTATION NOTE ---
Palliative Care Follow Up - Referral Referring Provider: Yesenia Chase PA-C Time of Visit: [id number] [place] [facility] [place] Reason: CIPN/Dyspnea/COPD/Lung CA - Information Sources Records reviewed: Previous records reviewed History/Review of Systems obtained from: Patient Exam limitations: Clinical condition (mild STM issues) - History of Present Illness Update Brief HPI Update: This is a brandi 69-year-old woman with metastatic lung cancer, involving both lungs. She continues on nivolumab every 2 weeks, she does present with high symptom burden. She is having increased dyspnea, cough, continues to smoke, but does present with increased lower extremity edema and concern for fluid retention. Patient has developed new symptom of orthopnea, and now is sleeping intermittently in the recliner. She does have increased scattered wheezes, breath sounds are diminished throughout. And presents with 2+ pitting edema up to mid calf. Patient has severe pain in her lower extremities, peripheral neuropathy, currently moderately controlled with MS Contin 15 mg twice daily, oxycodone up to 6 tabs a day, and gabapentin 300 mg twice daily. She does get quite sedated with this, but feels current balance between sedation and pain relief is acceptable, even though she rates her pain at a 7 out of 10. Social History - Living Situation Living arrangement: At home (Patient lives in her own home, and apartment she is renting with her friend Olivia, she does leave the house for medical appointments, and occasional shopping. They are very good friends as well as Olivia provides support around household/IADLs) Living Situation: With friend(s) (Patient lives in her own home, with her friend Olivia, they do have an apartment which is a flight of stairs up. She leaves the house for medical appointments, occasionally for shopping. She does have support from her sisters as well as her daughter. Her granddaughter Juan Ramon is a apple of her eye) Medications/Allergies - Medications Home Medications: Ambulatory Orders Medication Instructions Recorded Confirmed Aspirin [Aspir-Low] 81 mg PO DAILY 04/27/15 05/29/20 Losartan Potassium 50 mg PO DAILY 04/27/15 05/29/20 Metformin HCl 1,000 mg PO BID 04/27/15 05/29/20 Metoprolol Tartrate 50 mg PO DAILY 04/27/15 05/29/20 Simvastatin 80 mg PO DAILY 04/27/15 05/29/20 Cyanocobalamin (Vitamin B-12) 1 tab PO DAILY 06/04/15 05/29/20 [Vitamin B12] Levothyroxine [Synthroid] 75 mcg PO DAILY 10/04/18 05/29/20 oxyCODONE [Roxicodone] 5 - 10 tab PO Q4HR PRN 01/24/19 05/29/20 Zolpidem [Ambien] 5 - 10 mg ORAL DAILY PM PRN 04/18/19 05/29/20 Albuterol Oral Soln [Ventolin] 1 amp INH Q6HR PRN 05/30/19 05/29/20 Albuterol Sulfate [Proair Hfa 2 puffs INH Q4HR PRN 05/30/19 05/29/20 Inhaler] Morphine ER [Morphine Sulfate ER] 15 mg PO BID 11/14/19 05/29/20 polyethylene glycoL 3350 [Miralax] 8.5 - 17 mg PO DAILY PRN 01/09/20 05/29/20 Gabapentin 300 mg PO BID 02/06/20 05/29/20 Furosemide [Lasix] 40 mg PO DAILY MDD 5 days 05/29/20 05/29/20 - Allergies Allergies/Adverse Reactions: Allergies Allergy/AdvReac Type Severity Reaction Status Date / Time No Known Drug Allergies Allergy Verified 02/20/20 14:03 Review of Systems - Constitutional Constitutional: reports: Fatigue (worsening), Weakness, Poor appetite. denies: Fever, Chills - Eyes Eyes: reports: Blurred vision (eyes get bleary; strain of TV), Vision loss - Ears, Nose & Throat Ears, Nose & Throat: reports: Hearing loss (mild), Dentures. denies: Mouth lesions - Cardiovascular Cardiovascular: reports: Edema (increased), Exertional dyspnea, Decr. exercise tolerance, Orthopnea (worsening needing to sleep in recliner). denies: Palpitations, Chest pain - Respiratory Respiratory: reports: Cough, Sputum production (clear/yellow tinged), Wheezing (worsening), SOB at rest, SOB with exertion, Other (uses oxygen at night;) - Gastrointestinal Gastrointestinal: reports: Nausea (low grade), Reflux/heartburn (new symptom; fairly persistent), Poor appetite, Early satiety, Other (taste changes). denies: Constipation (using "cashews") - Genitourinary Genitourinary: reports: Frequency, Urgency, Incontinence (improved with timed toileting) - Musculoskeletal Musculoskeletal: reports: Back pain, Stiffness, Muscle weakness, Assistive devices (uses walker) - Integumentary Integumentary: reports: Dryness - Neurological Neurological: reports: General weakness, Numbness (bilateral peripheral neuropathy; reports NEW numbness in outer fingers of both hands; interfering with some fine motor activities), Memory problems - Psychiatric Psychiatric: reports: Depression, Anxiety - Endocrine Endocrine: reports: Diabetes type 2 (has returned up to higher level of previously ordereed metformin), Hypothyroidism - All Other Systems All Other Systems: reports: Reviewed and negative Physical Exam - Vital Signs Temperature: 36.5 C Pulse Rate: 93 Respiratory Rate: 18 Blood Pressure: 127/64 - Physical Exam General Appearance: positive: No acute distress, Alert Eyes Bilateral: positive: No scleral icterus, Other (periorbital edema) ENT: positive: No signs of dehydration Neck: positive: Trachea midline, Other (enlarged neck;) Cardiovascular: positive: Irregularly irregular Respiratory: positive: No respiratory distress, Diminished throughout, Wheezes (scattered throughout; right greater than left-worse than last visit), Other (cough effort severe). negative: Rales, Rhonchi Abdomen: positive: Soft, Obese Skin: positive: Pallor, Dryness Extremities: positive: Pedal edema (worse 2+ up to mid calf) Neurologic/Psychiatric: positive: Oriented x3, Mood/affect nml, Weakness, Flat affect Palliative Care - POLST Patient has POLST: Yes POLST Status: DNR, Selective Treatment Pain: Pain worsening, Location (Bilateral LE/feet with CIPN; lower back pain worsening attributes to being in chair more) Tiredness/Fatigue: Moderate (4-6) Drowsiness/Sedation: Severe (7-10) Nausea: Mild (1-3) Anorexia: Moderate (4-6) Dyspnea: Severe (7-10) Depression: Severe (7-10) Anxiety: Moderate (4-6) Feelings of wellbeing/Perceived Quality of Life: Fair, Worsening Sleep: Sleep improved, Variable sleep pattern Constipation: Yes, Opoid induced, Managed Performance Status: Patient spending more time in the recliner, this is both related to pain and dyspnea. She has needed to sleep because of her orthopnea in the recliner. She is able to ambulate short distances, she is managing her own ADLs. Her roommate does help her with household tasks. - Palliative Care Discussion: Patient does perceive herself in a slow decline, she continues to enjoy her granddaughter Juan Ramon. Her goal is to continue to be around as long as possible related to this, as long as she is independent and functional. She has been working on her end-of-life planning, she does have a POLST with DN AR/DNI with selective treatments. She would accept hospitalization and treatment for reversible conditions.She does have pending scans, she is slightly anxious regarding this. Results - Lab Results Lab results reviewed: Yes Impression and Recommendations - Palliative Care Impression: This is a 69-year-old woman with metastatic lung cancer, continued on her nivolumab every 2 weeks. She has had ongoing functional decline, high symptom burden, With noted new orthopnea, and worsening dyspnea. She is managing her pain appropriately on her current regimen, though does find the side effects of sedation limiting. For pain and symptom management, anticipatory guidance and transition to hospice when appropriate Recommendations/Counseling Done: 1. Lower extremity edema. Patient has been on previously furosemide 20 mg baseline, because of her baseline incontinence is very resistant to continuing. Did discuss given her worsening lower extremity edema today, and possibly impact on her respiratory status, she did agree to take furosemide 40 mg daily for 5 days. Will reevaluate if helps, if does help with breathing, may return her negotiate further furosemide dosing. Patient is also been eating high salt cashews, on a regular basis, instructed to decrease salt intake and cashew 2. Dyspnea. Patient is needing to sleep in Bhavesh secondary orthopnea, she does have increased wheezing. She has been instructed previously to initiate nebulizer to help with her coughing spasms and wheezing. Reinforced need to at least schedule albuterol nebulizer twice daily, counseling provided regarding strategies to be able to integrate this into her routine. Recommended to patient that we get a chest x-ray, given her worsening dyspnea, patient this point time declined. She will call if it worsens, reassured could get down at this clinic in [place]. Counseled on symptoms to report and or access urgent/emergent care. 3. Back pain. Patient has had Lydick Derm patches in the past, but are not covered by Medicare. Encouraged to use Salonpas 4% patches instead, these are [id number]. Also instructed to sleep in bed, as this most likely has exacerbated her back pain. 4. Peripheral neuropathy. This is multifactorial, patient with baseline diabetes, but has been exacerbated with nivolumab using. Patient currently using gabapentin 300 mg twice a day, morphine 50 mg extended release twice daily, and using oxycodone 5 mg 3-4 times a day to manage her pain, does titrate appropriately within guidelines provided. She is satisfied with her current regimen. Prescriptions were provided last week and gabapentin called in today. 45 minutes with greater than 50% of this done in counseling regarding pain and symptom management, management of lower extremity edema, coordination of care with oncology team.
== END 2020-05-28 11:36 | disposition home or self-care (01) ==
LOC: PC 11:35
PROVIDERS: ATTEND Nurse Practitioner Adult Health
DX: Z51.5 Encounter for palliative care (principal); C78.01 Secondary malignant neoplasm of right lung; C78.02 Secondary malignant neoplasm of left lung; C34.90 Malignant neoplasm of unspecified part of unspecified bronchus or lung; J44.9 Chronic obstructive pulmonary disease, unspecified; F17.200 Nicotine dependence, unspecified, uncomplicated; R60.9 Edema, unspecified; R06.01 Orthopnea; R06.00 Dyspnea, unspecified; G62.0 Drug-induced polyneuropathy; T45.1X5A Adverse effect of antineoplastic and immunosuppressive drugs, initial encounter; M54.9 Dorsalgia, unspecified; K59.03 Drug induced constipation; T40.605A Adverse effect of unspecified narcotics, initial encounter; R32 Unspecified urinary incontinence; H53.8 Other visual disturbances; H91.90 Unspecified hearing loss, unspecified ear; Z66 Do not resuscitate; Z79.899 Other long term (current) drug therapy; Z79.891 Long term (current) use of opiate analgesic; Z79.82 Long term (current) use of aspirin; Z79.51 Long term (current) use of inhaled steroids
CPT/HCPCS: 99215

== ENCOUNTER 2020-06-25 10:40 | Outpatient (CLI) | payer MEDICARE, OTHER ==
--- NOTE | 2020-06-25 19:39 | CONSULTATION NOTE ---
Palliative Care Follow Up - Referral Referring Provider: Yesenia Chase PA-C Time of Visit: [id number] Referral setting: [facility] [place] Referral Reason: CIPN/Met Lung CA/Fatigue - Information Sources Records reviewed: Previous records reviewed History/Review of Systems obtained from: Patient Exam limitations: No limitations - History of Present Illness Update Brief HPI Update: This is a brandi 69-year-old woman with metastatic lung cancer, involving both lungs. She continues on nivolumab every 2 weeks, but continues to have worsening symptom burden. She had significant fluid retention, with worsening lower extremity edema, orthopnea, and continued progressive dyspnea on 05/28 visit. She also has severe COPD and continues to smoke. She was started on furosemide with 40 mg x 5 days, then decrease to 20 mg for maintenance. She was actually tolerating this fairly well as she often quits because of worsening incontinence in past, but her kidney function today has markedly worsened, with creatinine of 1.9, and GFR of 26. She continues with scattered wheezes, rolling cough, but orthopnea and dyspnea improved slightly . She also did have some improvement in her lower extremity edema as well as ability to lay flat and sleep better. She had weight loss which most likely also reflects diuresis. Unfortunately she has a CT scan pending, will hold the furosemide for now, and continue to monitor. She will get a repeat of her kidney function on Wednesday prior to her CT exam. Patient continues with very poor appetite, she has lost 11 pounds since last week, she is at 201. She reports she would feel good at 170, though this has not been purposeful. She is continued with persistent fatigue, drowsiness from her pain medications, but she does report severe pain and discomfort in her feet, joints, and has been controlled on MS Contin 15 mg twice daily, oxycodone 5 mg a.m. and p.m., with 1-2 during the day, and gabapentin 300 mg twice daily. She does rate her pain fairly high at a 7 out of 10, but unbearable if she has not taking her pain medication. She is also having multiple joints discomfort, as well as rash that has not responded to triamcinolone ointment, though admits to now being consistent with use/application. Past Medical History: Type 2 diabetes, hypothyroidism, advanced COPD, lower extremity edema, insomnia, CHF, hypertension, high cholesterol, history of DE, incontinence, chronic vision loss, osteoarthritis, chronic back pain, history of coronary stent Social History - Living Situation Living arrangement: At home (Patient lives in her own home, and apartment she is renting with her friend Olivia, she does leave the house for medical appointments, and occasional shopping. They are very good friends as well as Olivia provides support around household/IADLs) Living Situation: With friend(s) Support System: Patient lives in an upstairs apartment, that she does have 1 flight of stairs to navigate. She does not leave her house except for medical appointments and occasional shopping. Her friend Olivia provide support around the house, IADLs. She is starting to worry that she is needing more support for her ADLs. She does have emotional support from her sisters, and her daughter comes and provides housecleaning every other week. 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 Medications/Allergies - Medications Home Medications: Ambulatory Orders Medication Instructions Recorded Confirmed Aspirin [Aspir-Low] 81 mg PO DAILY 04/27/15 06/25/20 Losartan Potassium 50 mg PO DAILY 04/27/15 06/25/20 Metformin HCl 1,000 mg PO DAILY 04/27/15 06/25/20 Metoprolol Tartrate 50 mg PO DAILY 04/27/15 06/25/20 Simvastatin 80 mg PO DAILY 04/27/15 06/25/20 Cyanocobalamin (Vitamin B-12) 1 tab PO DAILY 06/04/15 06/25/20 [Vitamin B12] Levothyroxine [Synthroid] 75 mcg PO DAILY 10/04/18 06/25/20 oxyCODONE [Roxicodone] 10 tab PO Q4HR PRN 01/24/19 06/25/20 Zolpidem [Ambien] 10 mg ORAL DAILY PM PRN 04/18/19 06/25/20 Albuterol Oral Soln [Ventolin] 1 amp INH Q6HR PRN 05/30/19 06/25/20 Albuterol Sulfate [Proair Hfa 2 puffs INH Q4HR PRN 05/30/19 06/25/20 Inhaler] Morphine ER [Morphine Sulfate ER] 15 mg PO BID 11/14/19 06/25/20 polyethylene glycoL 3350 [Miralax] 8.5 - 17 mg PO DAILY PRN 01/09/20 06/25/20 Gabapentin 300 mg PO BID 02/06/20 06/25/20 - Allergies Allergies/Adverse Reactions: Allergies Allergy/AdvReac Type Severity Reaction Status Date / Time No Known Drug Allergies Allergy Verified 02/20/20 14:03 Review of Systems - Constitutional Constitutional: reports: Fatigue (worsening), Weakness, Poor appetite, Weight loss (11 pounds since last month). denies: Fever, Chills - Eyes Eyes: reports: Blurred vision (eyes get bleary; strain of TV), Vision loss - Ears, Nose & Throat Ears, Nose & Throat: reports: Hearing loss (mild), Dentures. denies: Mouth lesions - Cardiovascular Cardiovascular: reports: Edema (moderate improvement), Exertional dyspnea, Decr. exercise tolerance, Orthopnea (needing to sleep in recliner). denies: Palpitations, Chest pain - Respiratory Respiratory: reports: Cough, Sputum production (clear/yellow tinged), Wheezing (worsening), SOB at rest, SOB with exertion, Other (uses oxygen at night;) - Gastrointestinal Gastrointestinal: reports: Nausea (low grade and persistent), Poor appetite, Early satiety, Other (taste changes). denies: Constipation (using "cashews") - Genitourinary Genitourinary: reports: Frequency, Urgency, Incontinence (improved with timed toileting) - Musculoskeletal Musculoskeletal: reports: Back pain, Stiffness, Muscle weakness, Assistive devices (uses walker), Other (having more difficulty with ADLs) - Integumentary Integumentary: reports: Rash (thighs; forearms), Dryness - Neurological Neurological: reports: General weakness, Numbness (bilateral peripheral neuropathy; reports NEW numbness in outer fingers of both hands; interfering with some fine motor activities), Memory problems - Psychiatric Psychiatric: reports: Depression, Anxiety - Endocrine Endocrine: reports: Diabetes type 2 (does not consistently take metformin), Hypothyroidism - All Other Systems All Other Systems: reports: Reviewed and negative Physical Exam - Vital Signs Temperature: 97.7 C Pulse Rate: 76 Respiratory Rate: 18 O2 Saturation: 96 (ra @ rest) Blood Pressure: 139/57 - Physical Exam General Appearance: positive: No acute distress, Alert Eyes Bilateral: positive: No scleral icterus ENT: positive: No signs of dehydration Neck: positive: Trachea midline, Other (enlarged neck;) Cardiovascular: positive: Irregularly irregular Respiratory: positive: No respiratory distress, Diminished throughout, Wheezes (scattered throughout;), Other (cough effort severe with spasms). negative: Rales, Rhonchi Abdomen: positive: Soft, Obese Skin: positive: Pallor, Dryness, Rash (dried dull pink plaques scattered on thighs/forearms) Extremities: positive: Pedal edema (decreased from last visit 1-2+) Neurologic/Psychiatric: positive: Oriented x3, Mood/affect nml, Weakness, Flat affect Palliative Care - POLST Patient has POLST: Yes POLST Status: DNR, Selective Treatment Pain: Pain worsening, Location (feet and legs with sharp shooting pains; aching multiple joints; new pain out 2 finger bilaterally), Severity (7/10) Tiredness/Fatigue: Severe (7-10) Drowsiness/Sedation: Severe (7-10) Nausea: None Anorexia: Moderate (4-6) Dyspnea: Severe (7-10) Depression: Moderate (4-6) Anxiety: Moderate (4-6) Feelings of wellbeing/Perceived Quality of Life: Fair, Acceptable, Worsening Sleep: Variable sleep pattern Constipation: No Performance Status: Patient with declining functional status, this is both related to her pain and dyspnea. She has needed to sleep in her recliner because of her worsening orthopnea. She is able to ambulate short distances, more difficulty tolerating extended standing, she is worried about continuing showering with her decreased strength. Her roommate does help her with IADLs. - Palliative Care Discussion: Patient continues to perceive her self with slow decline, she still finds meaning in her day-to-day living and enjoys her granddaughter Juan Ramon. Her goal remains to continue to be around as long as possible for this relationship, as l marjan as she can remain independent and functional. She has been working on her end-of-life planning, she does have a POLST with DN AR/DNI with selective treatments. She would accept hospitalization and treatment for reversible conditions. She does have pending scans, is somewhat anxious regarding this. She has been on treatment for extended period of time, is experiencing some fatigue regarding this. Impression and Recommendations - Palliative Care Impression: This is a 69-year-old woman with metastatic lung cancer, continuing on her nivolumab every 2 weeks. She presents today with elevated creatinine related to her recent diuretic use, ongoing functional decline, and high symptom burden. She is managing her pain appropriately on her current regimen, continues to struggle with the balance of sedation and pain relief. Palliative care continues to follow for pain and symptom management and anticipatory guidance, transition to hospice when appropriate. . Recommendations/Counseling Done: 1. Lower extremity edema. Patient had improvement in her lower extremity edema with furosemide dosing, including weight loss of both fluid and suspect also related to anorexia. Unfortunately she presents today with elevated creatinine and worsening GFR, will hold, particularly in light of her impending CT scan. She is trying to elevate, she has been intermittently on and off furosemide, often quits because of the incontinence. We will redraw BMP on Wednesday. 2. Dyspnea. Patient continues with high symptom burden of dyspnea, cough, and wheezing. She is continue to need to sleep in the recliner secondary to her orthopnea, though feels this has improved some with diuresis. She continues wi th scattered wheezing, she is not followed through on initiating nebulizer. She does have pending CT scan, and continues to smoke. She does use oxygen at night. Counseling provided regarding continued wheezing, to initiate nebulizer at least a.m. and p.m., to help move and clear secretions. Patient verbalized understanding 3. Peripheral neuropathy. This is multifactorial. Patient has baseline diabetes, but has been exacerbated with nivolumab. She is currently using gabapentin 300 mg twice a day, morphine 15 mg extended release twice daily, and oxycodone 5 mg 3-4 times a day. Trying to titrate appropriately and balance sedation with pain relief. Prescriptions provided. 4. Weight loss. This is multifactorial, has diuresed some of her lower extremity edema, but also has had persistent taste changes, early satiety, and anorexia. Patient encouraged to use instant breakfast daily, with goal for no further weight loss. 5. Muscle weakness. Patient continues with functional decline, now impacting her ability with ADLs. Patient is quite sedentary overall, but is feeling weaker, less activity tolerance, is recognizing decline overall. Counseling provided regarding safety for bathing, patient does have a shower bench, reviewed possible increased for safety with tub transfer bench, she will follow up with [facility]. Unfortunately she does have a glass shower doors, may or may not be able to accommodate. Patient reports she did have 1 fall, without injury, will review may need home therapy if worsens for safety evaluation. 6. Impaired kidney function. Patient is being instructed to increase fluids, hold furosemide. Patient with pending CT scan, will be check labs Wednesday prior to scan. 7. Advanced care planning. Patient has done well in completing her end-of-life planning documents, feels like she has a plan in place, does perceive herself as declining overall, is quite anxious about her pending scans. She is experiencing increasing toxicities related to her immunotherapy, but is committed to continuing treatment as long as her quality of life is acceptable. 50 minutes. Counseling provided regarding pain and symptom management, review of medications, safety issues, and anticipatory guidance
== END 2020-06-25 10:41 | disposition home or self-care (01) ==
LOC: PC 10:40
PROVIDERS: ATTEND Nurse Practitioner Adult Health
DX: Z51.5 Encounter for palliative care (principal); R60.0 Localized edema; I11.0 Hypertensive heart disease with heart failure; I50.9 Heart failure, unspecified; R06.00 Dyspnea, unspecified; R05 Cough; R06.2 Wheezing; E11.42 Type 2 diabetes mellitus with diabetic polyneuropathy; R63.4 Abnormal weight loss; M62.81 Muscle weakness (generalized); E11.29 Type 2 diabetes mellitus with other diabetic kidney complication; N28.9 Disorder of kidney and ureter, unspecified; C34.92 Malignant neoplasm of unspecified part of left bronchus or lung; C34.91 Malignant neoplasm of unspecified part of right bronchus or lung; C79.9 Secondary malignant neoplasm of unspecified site; J44.9 Chronic obstructive pulmonary disease, unspecified; F17.200 Nicotine dependence, unspecified, uncomplicated; Z79.84 Long term (current) use of oral hypoglycemic drugs; Z79.899 Other long term (current) drug therapy; Z66 Do not resuscitate
CPT/HCPCS: 99215

== ENCOUNTER 2020-07-03 23:15 | Outpatient (CLI) | payer MEDICARE, OTHER ==
--- OUTSIDE RECORDS SUMMARY | 2020-07-10 00:58 | EXTERNAL MEDICAL SUMMARY RPT | Continuity of Care Document ---
:1950 Demographics Phone Unavailable Preferred Language Unknown Marital Status Unknown Pentecostal Affiliation Unknown Race Unknown Ethnic Group Unknown Author Organization [facility] Address [address] [phone] Phone Care Team Providers Name Role Phone PA-C Unavailable Unavailable Problems date description facility [id number] Alcohol use [facility] [id number] Conjunctival hemorrhage [facility] [id number] Conjunctival hemorrhage, right eye [facility] [id number] Contusion of face [facility] [id number] Contusion of face, scalp, and neck [facility] except eye(s) [facility] [id number] Contusion of other part of head, [facility] Ha[facility] ramires [id number] Current every day smoker [facility] [id number] Details of drug misuse behavior [facility] [id number] Pain in joint involving forearm [facility] [id number] Pain in left wrist [facility] [id number] Pain of left wrist [facility] [id number] Sprain of left wrist [facility] ram[facility] [id number] Subconjunctival hemorrhage [facility] [id number] Tobacco use and exposure [facility] [id number] Unspecified sprain of left wrist, [facility] [id number] WRIST [facility] ramires Vital Signs date measurement value source 20200704 BMI 32.57 kg/m2 [id number] BP_diastolic 62 mm[Hg] [id number] BP_systolic 113 mm[Hg] [id number] heart_rate 83 /min [id number] height_metric 170.18 cm [id number] height_standard 67 in [id number] respiration_rate 20 /min [id number] temperature_metric 36.94 C [id number] temperature_standard 98.5 F [id number] weight_metric 93.98 kg [id number] weight_standard 207.2 lb Social History date description facility [id number]
== END 2020-07-03 23:16 ==
LOC: EMS 23:15
DX: R04.2 Hemoptysis (principal); M79.642 Pain in left hand; H57.89 Other specified disorders of eye and adnexa

== ENCOUNTER 2020-07-04 15:05 | Outpatient (CLI) | payer MEDICARE, OTHER ==
--- NOTE | 2020-07-04 16:09 | XRAY Report ---
PROCEDURE: Wrist 3 View LT INDICATIONS: LEFT WRIST PAIN TECHNIQUE: 3 views of the wrist were acquired. COMPARISON: No trauma. FINDINGS: Bones: No fractures or dislocations. No suspicious bony lesions. Scaphoid view: Not obtained. Soft tissues: No suspicious soft tissue calcifications. IMPRESSION: No trauma found. Mild degenerative osteoarthritic change at the radiocarpal joint and moderate such d egeneration at the base of the first metacarpal. No erosive arthritis is found. Reviewed by: Maninder Sims MD on 07/04/2020 4:08 PM PDT Approved by: Maninder Sims MD on 07/04/2020 4:08 PM PDT Station ID: [id number]
== END 2020-07-04 23:59 | disposition home or self-care (01) ==
LOC: DI.S 15:05
PROVIDERS: ATTEND Physician Assistant
DX: M25.532 Pain in left wrist (principal); M19.032 Primary osteoarthritis, left wrist

== ENCOUNTER 2020-07-23 14:33 | Outpatient (CLI) | payer MEDICARE, OTHER ==
--- NOTE | 2020-07-23 16:19 | CONSULTATION NOTE ---
Palliative Care Follow Up - Referral Referring Provider: Yesenia Chase PA-C Time of Visit: 1430 60 minutes [place] [facility] [place] Reason: CIPN/Anxiety/GERD/Lung CA - Information Sources Records reviewed: Previous records reviewed History/Review of Systems obtained from: Patient Exam limitations: Clinical condition (STM mild deficits) - History of Present Illness Update Brief HPI Update: This is a 69-year-old woman with metastatic lung cancer, involving both lungs. She continues on nivolumab every 2 weeks, but continues with worsening symptom burden, most likely also attributed some to immunotherapy long-term effects. She has worsening anorexia, she has had 11 pound weight loss over the last several weeks, kidney function is worsening, multiple joint discomfort, worsening neuropathy, rash, and complains of worsening fatigue. She does at baseline have severe COPD, continues to smoke, does have shortness of breath and cough. She does have lower extremity edema mostly controlled by furosemide 20 mg daily, she does have intermittent orthopnea. Her pain is mostly peripheral neuropathy, located in her feet, she rates it at a 7 out of 10. She does take MS Contin 50 mg twice a day, and oxycodone 5 mg 2-3 times during the day as well as gabapentin 300 mg twice daily. She takes as little as possible, as she does not like the sedating effects, but did not take it this a.m. because she had to drive, and complains of severe pain at time of visit. Past Medical History: Type 2 diabetes, hypothyroidism, advanced COPD, lower extremity edema, insomnia, CHF, hypertension, high cholesterol, history of PR, incontinence, chronic vision loss, osteoarthritis, chronic back pain, history of coronary stent Social History - Living Situation Living arrangement: At home (Patient lives in her own home, and apartment she is renting with her friend Olivia, she does leave the house for medical appointments, and occasional shopping. They are very good friends as well as Olivia provides support around household/IADLs) Living Situation: With friend(s) Medications/Allergies - Medications Home Medications: Ambulatory Orders Medication Instructions Recorded Confirmed Aspirin [Aspir-Low] 81 mg PO DAILY 04/27/15 07/23/20 Losartan Potassium 50 mg PO DAILY 04/27/15 07/23/20 Metformin HCl 1,000 mg PO DAILY 04/27/15 07/23/20 Metoprolol Tartrate 50 mg PO DAILY 04/27/15 07/23/20 Simvastatin 80 mg PO DAILY 04/27/15 07/23/20 Cyanocobalamin (Vitamin B-12) 1 tab PO DAILY 06/04/15 07/23/20 [Vitamin B12] Levothyroxine [Synthroid] 75 mcg PO DAILY 10/04/18 07/23/20 oxyCODONE [Roxicodone] 10 tab PO Q4HR PRN 01/24/19 07/23/20 Zolpidem [Ambien] 10 mg ORAL DAILY PM PRN 04/18/19 07/23/20 Albuterol Oral Soln [Ventolin] 1 amp INH Q6HR PRN 05/30/19 07/23/20 Albuterol Sulfate [Proair Hfa 2 puffs INH Q4HR PRN 05/30/19 07/23/20 Inhaler] Morphine ER [Morphine Sulfate ER] 15 mg PO BID 11/14/19 07/23/20 polyethylene glycoL 3350 [Miralax] 8.5 - 17 mg PO DAILY PRN 01/09/20 07/23/20 Gabapentin 300 mg PO BID 02/06/20 07/23/20 Omeprazole 40 mg PO DAILY 07/23/20 07/23/20 - Allergies Allergies/Adverse Reactions: Allergies Allergy/AdvReac Type Severity Reaction Status Date / Time No Known Drug Allergies Allergy Verified 07/09/20 11:13 Review of Systems - Constitutional Constitutional: reports: Fatigue (worsening), Weakness, Poor appetite, Weight loss (continues with wt loss 194). denies: Fever, Chills - Eyes Eyes: reports: Blurred vision (eyes get bleary; strain of TV), Vision loss - Ears, Nose & Throat Ears, Nose & Throat: reports: Hearing loss (mild), Dentures. denies: Mouth lesions - Cardiovascular Cardiovascular: reports: Edema (moderate improvement), Exertional dyspnea, Decr. exercise tolerance, Orthopnea (needing to sleep in recliner). denies: Palpitations, Chest pain - Respiratory Respiratory: reports: Cough, Sputum production (clear/yellow tinged), Wheezing (worsening), SOB at rest, SOB with exertion, Other (uses oxygen at night;) - Gastrointestinal Gastrointestinal: reports: Nausea (low grade and persistent), Poor appetite, Early satiety, Other (taste changes). denies: Constipation (using "cashews") - Genitourinary Genitourinary: reports: Frequency, Urgency, Incontinence (improved with timed toileting) - Musculoskeletal Musculoskeletal: reports: Back pain, Stiffness, Muscle weakness, Assistive devices (uses walker), Other (having more difficulty with ADLs) - Integumentary Integumentary: reports: Rash (thighs; improved on forearms), Dryness - Neurological Neurological: reports: General weakness, Numbness (bilateral peripheral neuropathy; reports NEW numbness in outer fingers of both hands; interfering with some fine motor activities), Memory problems - Psychiatric Psychiatric: reports: Depression, Anxiety - Endocrine Endocrine: reports: Diabetes type 2 (does not consistently take metformin), Hypothyroidism - Hematologic/Lymphatic Hematologic/Lymph: reports: Anemia (9.3) - All Other Systems All Other Systems: reports: Reviewed and negative Physical Exam - Vital Signs Temperature: 36.3 C Pulse Rate: 78 Respiratory Rate: 16 Blood Pressure: 113/76 - Physical Exam General Appearance: positive: No acute distress, Alert Eyes Bilateral: positive: No scleral icterus ENT: positive: No signs of dehydration, Other (dentures) Neck: positive: Trachea midline, Other (enlarged neck;) Cardiovascular: positive: Irregularly irregular Respiratory: positive: No respiratory distress, Diminished throughout, Wheezes (LLL), Other (cough effort severe with spasms). negative: Rales, Rhonchi Abdomen: positive: Soft, Obese Skin: positive: Pallor, Dryness, Rash (dried dull pink plaques scattered on thighs/forearms) Extremities: positive: Pedal edema (decreased from last visit 1-2+) Neurologic/Psychiatric: positive: Oriented x3, Mood/affect nml, Weakness, Flat affect Palliative Care - POLST Patient has POLST: Yes POLST Status: DNR, Selective Treatment Pain: Pain worsening, Location, Severity (7/10) Tiredness/Fatigue: Severe (7-10) Drowsiness/Sedation: Severe (7-10) Nausea: Moderate (4-6) Anorexia: Severe (7-10) Dyspnea: Severe (7-10) Depression: Moderate (4-6) Anxiety: Moderate (4-6) Feelings of wellbeing/Perceived Quality of Life: Fair, Acceptable, Worsening Constipation: Yes, Opoid induced, Managed Performance Status: Patient continues with declining functional status both related to her pain and dyspnea, she is needing to sleep in a recliner because of her worsening orthopnea. She can ambulate short distances but is having more difficulty with balance. She is worried about falling. - Palliative Care Discussion: Patient reports she is got a good report for the oncologist, though she herself perceives herself is declining, with declining functional status, she has fairly high symptom burden, she is losing weight, and pain is worsening. I suspect some of this is long-term side effects from her nivolumab as well as chronic health problems. She does get quite anxious at times, she continues to get quite a bit of jose alfredo from her relationship with her grand daughter Juan Ramon. We did discuss some life review today. Results - Lab Results Lab results reviewed: Yes Impression and Recommendations - Palliative Care Impression: This is a 69-year-old woman with metastatic lung cancer, continuing on nivolumab every 2 weeks. She is managing her pain appropriately on her current regimen, though continues with a very high symptom burden overall. Palliative care continues to provide support for pain and symptom management and anticipatory guidance. Recommendations/Counseling Done: 1. Lower extremity edema. Patient forgotten she had been told to stop the furosemide, is continued at 20 mg daily. She still has some residual swelling in her feet, but pain is better with swelling down. She is challenged with diuretics because of her incontinence, at this point in time she is doing fairly well on it overall. 2. Peripheral neuropathy. This is multifactorial, patient at baseline has diabetes but has been exacerbated by the nivolumab. She is currently using gabapentin 300 mg twice a day, morphine 15 mg extended release twice daily and oxycodone 5 mg 3-4 times a day. She tries to titrate appropriately and balance sedation with pain relief. Prescriptions provided. 3. Weight loss. This is multifactorial, she has persistent taste changes, early satiety, and presents today with GERD as well as her anorexia. She has not been able to remember to consistently do shake, she is somewhat distressed with her pending weight loss. 4. GERD. Patient presents with substernal discomfort, worsening with food with early satiety. Patient will trial omeprazole 40 mg extended release for 2 weeks and evaluate if improves. 5. Muscle weakness. Patient continues with functional decline, she is quite sedentary, she is limited both by her pain and her dyspnea. She does have a walker for balance when she is out. [place] with significant injury. 6. Advanced care planning. Patient has continued to work on her end-of-life planning documents and tasks. She does perceive herself as declining overall and is experiencing increasing toxicities related to her immunotherapy but at this point there is no plans to suspend at this juncture. 60 minutes, review of chart, oncology notes, labs, coordination of care with oncology team, [id number] visit for physical exam, counseling regarding pain and symptom management, and anxiety as well as anticipatory guidance
== END 2020-07-23 14:34 | disposition home or self-care (01) ==
LOC: PC 14:33
PROVIDERS: ATTEND Nurse Practitioner Adult Health
DX: Z51.5 Encounter for palliative care (principal); R60.0 Localized edema; E11.42 Type 2 diabetes mellitus with diabetic polyneuropathy; R63.4 Abnormal weight loss; K21.9 Gastro-esophageal reflux disease without esophagitis; M62.81 Muscle weakness (generalized); J44.9 Chronic obstructive pulmonary disease, unspecified; R06.01 Orthopnea; I11.0 Hypertensive heart disease with heart failure; I50.9 Heart failure, unspecified; F17.200 Nicotine dependence, unspecified, uncomplicated; C34.92 Malignant neoplasm of unspecified part of left bronchus or lung; C34.91 Malignant neoplasm of unspecified part of right bronchus or lung; Z79.84 Long term (current) use of oral hypoglycemic drugs; Z66 Do not resuscitate
CPT/HCPCS: 99215

== ENCOUNTER 2020-08-21 13:30 | Outpatient (CLI) | payer MEDICARE, OTHER ==
--- NOTE | 2020-08-21 15:37 | CONSULTATION NOTE ---
Palliative Care Follow Up - Referral Referring Provider: Yesenia Chase PA-C Time of Visit: 1330 60 min Referral setting: [facility] [place] Referral Reason: CIPN/Lung CA/Right breast lump - Information Sources Records reviewed: RN notes reviewed, Previous records reviewed History/Review of Systems obtained from: Patient Exam limitations: Clinical condition (STM issues) - History of Present Illness Update Brief HPI Update: This is a 69-year-old woman with metastatic lung cancer, involving both lungs. She continues on nivolumab every 2 weeks, but with increasing symptom burden most likely attributed to immunotherapy long-term effects with worsening anorexia, multiple joint discomfort, worsening neuropathy, and persistent fat igue. Patient quite alarmed today, she found a pea-sized lump at 6:00 just under her areola about 2 cm out from the nipple, nonfixed, nontender, but worried about breast cancer. Patient has not had a mammogram for over 30 years, and wants it checked out "right away". Not able to schedule until 09/03, reassured. Patient's pain continues to be quite persistent, at a fairly high level of 7/10, she continues to be distressed with the sedation, balancing with the pain relief. Her pain is most problematic at bedtime. She is currently on MS Contin 15 mg twice daily, gabapentin 300 mg twice daily, and oxycodone 10 mg as needed. Patient had been having increased reflux symptoms, continues with vague nausea, but has improved with the addition of omeprazole 40 mg daily She does present today with severe constipation, did try some Dulcolax. She has not been taking anything on a regular basis, previously had been taking cashews with some improvement of her bowels, has not revisited instructions to initiate MiraLAX. 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 Past Medical History: Type 2 diabetes, hypothyroidism, advanced COPD, Lower extremity edema, insomnia CHF, hypertension, high cholesterol, history of MA, persistent incontinence, chronic vision loss, osteoarthritis, chronic back pain, history of coronary stent. Social History - Living Situation Living arrangement: At home Living Situation: With friend(s) Support System: Patient rents an apartment, with friend. Her friend Olivia provide support for household support, appointments, and shopping. She provides emotional support as well, they are very good friends. Her daughter does come and help with housework every 2 weeks, she also remains quite connected to her granddaughter Medications/Allergies - Medications Home Medications: Ambulatory Orders Medication Instructions Recorded Confirmed Aspirin [Aspir-Low] 81 mg PO DAILY 04/27/15 08/21/20 Losartan Potassium 50 mg PO DAILY 04/27/15 08/21/20 Metformin HCl 1,000 mg PO DAILY 04/27/15 08/21/20 Metoprolol Tartrate 50 mg PO DAILY 04/27/15 08/21/20 Simvastatin 80 mg PO DAILY 04/27/15 08/21/20 Cyanocobalamin (Vitamin B-12) 1 tab PO DAILY 06/04/15 08/21/20 [Vitamin B12] Levothyroxine [Synthroid] 75 mcg PO DAILY 10/04/18 08/21/20 oxyCODONE [Roxicodone] 10 tab PO Q4HR PRN 01/24/19 08/21/20 Zolpidem [Ambien] 10 mg ORAL DAILY PM PRN 04/18/19 08/21/20 Albuterol Oral Soln [Ventolin] 1 amp INH Q6HR PRN 05/30/19 08/21/20 Albuterol Sulfate [Proair Hfa 2 puffs INH Q4HR PRN 05/30/19 08/21/20 Inhaler] Morphine ER [Morphine Sulfate ER] 15 mg PO .15 MG AM; 30 MG PM 11/14/19 08/21/20 polyethylene glycoL 3350 [Miralax] 8.5 - 17 mg PO DAILY PRN 01/09/20 08/21/20 Gabapentin 300 mg PO BID 02/06/20 08/21/20 Omeprazole 40 mg PO DAILY 07/23/20 08/21/20 - Allergies Allergies/Adverse Reactions: Allergies Allergy/AdvReac Type Severity Reaction Status Date / Time No Known Drug Allergies Allergy Verified 07/09/20 11:13 Review of Systems - Constitutional Constitutional: reports: Fatigue (persistent/worsening), Weakness, Poor appetite, Weight loss. denies: Fever, Chills - Eyes Eyes: reports: Blurred vision (eyes get bleary; strain of TV; dx with cataracts arranging surgery 09/05), Vision loss - Ears, Nose & Throat Ears, Nose & Throat: reports: Hearing loss (mild), Dentures. denies: Mouth lesions - Cardiovascular Cardiovascular: reports: Edema (moderate improvement), Exertional dyspnea, Decr. exercise tolerance, Orthopnea (needing to sleep in recliner). denies: Palpitations, Chest pain - Respiratory Respiratory: reports: Cough, Sputum production (clear/yellow tinged), Wheezing (worsening), SOB at rest, SOB with exertion, Other (uses oxygen at night;) - Gastrointestinal Gastrointestinal: reports: Nausea (low grade and persistent), Reflux/heartburn (imkproved with omeprazole), Poor appetite, Early satiety, Other (taste changes). denies: Constipation (using "cashews") - Genitourinary Genitourinary: reports: Frequency, Urgency, Incontinence (improved with timed toileting) - Musculoskeletal Musculoskeletal: reports: Back pain, Stiffness, Muscle weakness, Assistive devices (uses walker), Other (having more difficulty with ADLs) - Integumentary Integumentary: reports: Rash (thighs; improved on forearms), Dryness - Neurological Neurological: reports: General weakness, Numbness (bilateral peripheral neuropathy; reports NEW numbness in outer fingers of both hands; interfering with some fine motor activities), Memory problems - Psychiatric Psychiatric: reports: Depression, Anxiety - Endocrine Endocrine: reports: Diabetes type 2 (does not consistently take metformin), Hypothyroidism - Hematologic/Lymphatic Hematologic/Lymph: reports: Anemia (9.3) - All Other Systems All Other Systems: reports: Reviewed and negative Physical Exam - Vital Signs Temperature: 36.3 C Pulse Rate: 85 Respiratory Rate: 18 O2 Saturation: 98 (ra @ rest) Blood Pressure: 108/61 - Physical Exam General Appearance: positive: No acute distress, Alert, Anxious (related breast lump) Eyes Bilateral: positive: No scleral icterus ENT: positive: No signs of dehydration, Other (dentures) Neck: positive: Trachea midline, Other (enlarged neck;) Cardiovascular: positive: Irregularly irregular Respiratory: positive: No respiratory distress, Diminished throughout, Wheezes (LLL). negative: Rales, Rhonchi Abdomen: positive: Soft, Obese Skin: positive: Pallor, Dryness, Rash (dried dull pink plaques scattered on thighs/forearms), Other (see HPI for right breast lump 1 pea size below areola) Extremities: positive: Pedal edema (decreased from last visit 1+) Neurologic/Psychiatric: positive: Oriented x3, Mood/affect nml, Weakness, Flat affect Palliative Care - POLST Patient has POLST: Yes POLST Status: DNR, Selective Treatment Pain: Severity (7/10) Tiredness/Fatigue: Severe (7-10) Drowsiness/Sedation: Severe (7-10) Nausea: Mild (1-3) Anorexia: Mild (1-3) Dyspnea: Severe (7-10) Depression: Moderate (4-6) Anxiety: Moderate (4-6) Feelings of wellbeing/Perceived Quality of Life: Poor, Worsening Sleep: Variable sleep pattern (related to pain worse at night) Constipation: Yes, Opoid induced, Unmanaged Performance Status: Patient continues to have declining functional status, this is impacted both by her dyspnea as well as her lower extremity severe peripheral neuropathy. She is only able to ambulate short distances, does use a walker. She is still driving though. - Palliative Care Discussion: Patient very anxious about the finding of a small breast lump, reassured though she had not felt it a week ago, that getting in on 09/03 will not change the outcome. They did put her on a waiting list so she feels little bit better about this. Patient continues to feel like her quality of life remains quite poor, but very much enjoys the time she has with her granddaughter, and still finds focus on continuing treatment in alignment with her goals. Results - Lab Results Lab results reviewed: Yes Impression and Recommendations - Palliative Care Impression: This is a 69-year-old woman with metastatic lung cancer, continuing on nivolumab every 2 weeks. She does feel her pain is worsening, will adjust pain regimen, patient has high symptom burden overall. Patient presents with anxiety seconda ry to right breast lump today. Palliative care continues to provide support for pain and symptom management and anticipatory guidance Recommendations/Counseling Done: 1. Right breast lump. Though is less than 1 cm, patient with high anxiety. Arrangements made for diagnostic imaging, patient has not had a mammogram for over 30 years. Reports she checks her breasts frequently, was quite surprised and feels like it was "growing fast". Reassured will be able to wait until 09/03 for imaging and follow-up. 2. Peripheral neuropathy. 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 She is using gabapentin 300 mg twice a day morphine extended release twice daily, and oxycodone a few times a day. She is most painful at bedtime, wanting to increase her pain medications at evening, and try to manage during the day secondary to sedation. 3. GERD. Patient continues with intermittent substernal discomfort worsening with food and early satiety. She does report trial of omeprazole 40 mg has improved things, will continue. 4. Weight loss. This is multifactorial, has persistent taste changes, early satiety and low-grade nausea/GERD. Patient tries to increase calories and consistently do a shake. 5. Muscle weakness. Patient continues with functional decline, she is quite sedentary, she is limited both by her pain and dyspnea. She does have a walker for balance when she is out. She is not had any further falls and did get a bath seat. 6. Constipation. Patient has not had trouble with constipation previously, reports she is significantly "bound up". Instructed to take MiraLAX 17 g daily and titrate accordingly. Patient verbalized understanding will black pickler at the pharmacy today. 6. Advanced care planning. Patient does perceive herself is declining, she is experiencing increased toxicities related to her immunotherapy, but at this point is continuing for treatment. Patient does have her POLST in place, her DPOA done, and continues to meet with palliative care on a monthly basis. Provided paperwork for disability parking 60 minutes with review of labs, patient exam, coordination of care with oncology team, and counseling for pain and symptom management and anticipatory guidance
== END 2020-08-21 13:31 | disposition home or self-care (01) ==
LOC: PC 13:30
PROVIDERS: ATTEND Nurse Practitioner Adult Health
DX: Z51.5 Encounter for palliative care (principal); N63.41 Unspecified lump in right breast, subareolar; E11.42 Type 2 diabetes mellitus with diabetic polyneuropathy; K21.9 Gastro-esophageal reflux disease without esophagitis; R63.4 Abnormal weight loss; R63.0 Anorexia; M62.81 Muscle weakness (generalized); R11.0 Nausea; R43.9 Unspecified disturbances of smell and taste; R68.81 Early satiety; R53.83 Other fatigue; G62.0 Drug-induced polyneuropathy; T45.1X5A Adverse effect of antineoplastic and immunosuppressive drugs, initial encounter; K59.03 Drug induced constipation; T40.2X5A Adverse effect of other opioids, initial encounter; R06.02 Shortness of breath; C34.91 Malignant neoplasm of unspecified part of right bronchus or lung; C34.92 Malignant neoplasm of unspecified part of left bronchus or lung; Z79.899 Other long term (current) drug therapy; Z79.891 Long term (current) use of opiate analgesic; Z66 Do not resuscitate; Z79.84 Long term (current) use of oral hypoglycemic drugs; Z74.09 Other reduced mobility; Z99.81 Dependence on supplemental oxygen
CPT/HCPCS: 99215

== ENCOUNTER 2020-09-24 11:05 | Outpatient (CLI) | payer MEDICARE, OTHER ==
--- NOTE | 2020-09-24 17:13 | CONSULTATION NOTE ---
Palliative Care Follow Up - Referral Referring Provider: Yesenia Chase PA-C Time of Visit: 1105 45 min Referral setting: [facility] [place] Referral Reason: FTT/Lung CA - Information Sources Records reviewed: RN notes reviewed, Previous records reviewed History/Review of Systems obtained from: Patient Exam limitations: Clinical condition (patient with worsening STM defic its/feeling poorly) - History of Present Illness Update Brief HPI Update: This is a 69-year-old woman who continues to do poorly, she presented on 09/17 with progressive weakness and fatigue, and was found to have low blood pressure 76/40 has lost 20 pounds recently, and her crit was 6.5, she did receive 2 units of packed red blood cells. Unclear the underlying etiology of this, she is due to see the surgeon on 09/30. She denies any worsening abdominal pain, denies dark stools, but continues to feel quite weak. She has had 2 falls, including knee injury which she did not go to urgent care or ED as recommended. She still has some trouble with ambulation, but is better able to get around, reports the pain is better. Today she is still quite weak, her hemoglobin is 7.6, 7.5 was a cut off her to receive a transfusion today. She is still with hypotension, so receiving a liter of fluid. She is quite pale, having difficulty staying awake, she is sleeping poorly, and very sedentary at home. Her appetite continues to be poor, she has had intermittent constipation, though we have reviewed her bowel program multiple times she does have difficulty managing her medications. She feels pretty run out, she reports she is drinking apple juice, she feels cold most of the time. She reports she is not dizzy at rest, but has been dizzy getting up and down. She does admit to intermittent confusion, reports no increase in cough or changes in her sputum. She does present with worsening LE edema, is currently not taking furosemide per her report, though medication management/adherence is questionable. With the increase in swelling, she has had worsening lower extremity pain, and increased difficulty with sleeping. She also reports increased difficulty with swallowing. Past Medical History: Type 2 diabetes, hypothyroidism, advanced COPD, lower extremity edema, insomnia, CHF, hypertension, high cholesterol, history of AR, persistent incontinence, chronic vision loss, osteoarthritis, chronic back pain, history of coronary stent. Social History - Living Situation Living arrangement: At home Living Situation: With friend(s) Support System: She rents an apartment with her friend Olivia who provides significant amount of household support, helps her get to appointments, and shopping. She also provides emotional support and they are quite good friends, she has identified her as her DPOA. Her daughter does come and help with housework every couple weeks, and she remains quite connected and enthusiastic about her grand daughter Juan Ramon Medications/Allergies - Medications Home Medications: Ambulatory Orders Medication Instructions Recorded Confirmed Aspirin [Aspir-Low] 81 mg PO DAILY 04/27/15 09/17/20 Losartan Potassium 50 mg PO DAILY 04/27/15 09/17/20 Metformin HCl 1,000 mg PO DAILY 04/27/15 09/17/20 Metoprolol Tartrate 50 mg PO DAILY 04/27/15 09/17/20 Simvastatin 80 mg PO DAILY 04/27/15 09/17/20 Cyanocobalamin (Vitamin B-12) 1 tab PO DAILY 06/04/15 09/17/20 [Vitamin B12] Levothyroxine [Synthroid] 75 mcg PO DAILY 10/04/18 09/17/20 oxyCODONE [Roxicodone] 10 tab PO Q4HR PRN 01/24/19 09/17/20 Zolpidem [Ambien] 10 mg ORAL DAILY PM PRN 04/18/19 09/17/20 Albuterol Sulfate [Proair Hfa 2 puffs INH Q4HR PRN 05/30/19 09/17/20 Inhaler] Morphine ER [Morphine Sulfate ER] 15 mg PO .15 MG AM; 30 MG PM 11/14/19 09/17/20 polyethylene glycoL 3350 [Miralax] 8.5 - 17 mg PO DAILY PRN 01/09/20 09/17/20 Gabapentin 300 mg PO BID 02/06/20 09/17/20 Omeprazole 40 mg PO DAILY 07/23/20 09/17/20 - Allergies Allergies/Adverse Reactions: Allergies Allergy/AdvReac Type Severity Reaction Status Date / Time No Known Drug Allergies Allergy Verified 09/24/20 09:31 Review of Systems - Constitutional Constitutional: reports: Fatigue (persistent/worsening), Chills, Weakness, Poor appetite, Night sweats, Weight loss (20 pounds since July). denies: Fever - Eyes Eyes: reports: Blurred vision (eyes get bleary; strain of TV; dx with cataracts arranging surgery 09/05), Vision loss - Ears, Nose & Throat Ears, Nose & Throat: reports: Hearing loss (mild), Dentures, Sore throat. denies: Mouth lesions - Cardiovascular Cardiovascular: reports: Edema (worsening; LE taut up to knees), Exertional dyspnea, Decr. exercise tolerance, Orthopnea (needing to sleep in recliner). denies: Palpitations, Chest pain - Respiratory Respiratory: reports: Cough, Sputum production (clear/yellow tinged), Wheezing (worsening), SOB at rest, SOB with exertion, Other (uses oxygen at night;) - Gastrointestinal Gastrointestinal: reports: Nausea (low grade and persistent), Reflux/heartburn (improved with omeprazole), Poor appetite, Early satiety, Other (taste changes). denies: Constipation (using "cashews") - Genitourinary Genitourinary: reports: Frequency, Urgency, Incontinence (improved with timed toileting) - Musculoskeletal Musculoskeletal: reports: Back pain, Stiffness, Muscle weakness, Assistive devices (uses walker), Other (having more difficulty with ADLs) - Integumentary Integumentary: reports: Rash (thighs; improved on forearms), Dryness - Neurological Neurological: reports: General weakness, Numbness (bilateral peripheral neuropathy; reports NEW numbness in outer fingers of both hands; interfering with some fine motor activities), Memory problems - Psychiatric Psychiatric: reports: Depression, Anxiety - Endocrine Endocrine: reports: Diabetes type 2 (does not consistently take metformin), Hypothyroidism - Hematologic/Lymphatic Hematologic/Lymph: reports: Anemia (7.6) - All Other Systems All Other Systems: reports: Other (limit) Physical Exam - Vital Signs Temperature: 36.2 C Pulse Rate: 96 Respiratory Rate: 18 O2 Saturation: 96 (ra @rest) Blood Pressure: 99/47 - Physical Exam General Appearance: positive: Moderate distress, Anxious (related breast lump), Lethargic Eyes Bilateral: positive: No scleral icterus, Other (periorbital edema) ENT: positive: No signs of dehydration, Other (dentures) Neck: positive: Trachea midline, Other (enlarged neck;) Cardiovascular: positive: Irregularly irregular Respiratory: positive: No respiratory distress, Diminished throughout, Wheezes (LLL), Other (moist cough; spasms). negative: Rales, Rhonchi Abdomen: positive: Soft, Tenderness (upper quadrant), Obese Skin: positive: Pallor, Dryness, Rash (dried dull pink plaques scattered on th ighs/forearms), Other (see HPI for right breast lump 1 pea size below areola) Extremities: positive: Pedal edema (decreased from last visit 1+) Neurologic/Psychiatric: positive: Disoriented to time, Weakness, Depressed mood/affect, Flat affect Palliative Care - POLST Patient has POLST: Yes POLST Status: DNR, Selective Treatment Pain: Location (feet/lower back), Severity (7/10) Tiredness/Fatigue: Severe (7-10) Drowsiness/Sedation: Severe (7-10) Nausea: Moderate (4-6) Anorexia: Severe (7-10), Weight loss Dyspnea: Severe (7-10), Comment (baseline) Depression: Moderate (4-6) Anxiety: Severe (7-10) Feelings of wellbeing/Perceived Quality of Life: Poor, Worsening Sleep: Variable sleep pattern Constipation: Yes, Opoid induced, Unmanaged Performance Status: Patient continue to decline functionally, spending most of time in recliner. Able to ambulate only short distances in home, longer distances with walker. Needing more assistance / support for ADLs - Palliative Care Discussion: Patient is quite distressed, she reports "she is scared like she had". She is very anxious about what is going on, she feels quite run out, and her quality of life continues to decline. Patient gets quite anxious about medical appointments and conversations with providers, she does not always understand information, and is often reluctant to ask. Patient continues to want active interventions related to her goals which is to support her granddaughter for as long as possible, but is worried about losing her independence and her declining status Results - Lab Results Lab results reviewed: Yes Impression and Recommendations - Palliative Care Impression: This is a 69-year-old woman with metastatic lung cancer, continuing on nivolumab every 2 weeks. She presents with failure to thrive, with significant weight loss, anorexia, worsening pain, lower extremity edema is worsening, recent transfusion for 2 units of packed red blood cells with unknown etiology of bleeding source. Patient with recent fall and unable to get to appointments, continues to struggle with functional status. Palliative care continue provide support for pain and symptom management and anticipatory guidance. Recommendations/Counseling Done: 1. Right breast lump. Unfortunately with her recent fall, she is unable to follow through on her appointments, she is scheduled for 10/01 for mammography. 2. Peripheral neuropathy. This is multifactorial, it has been worsening with increased lower extremity edema, as well as significant exacerbation with injury to her left leg and knee. She is using gabapentin 300 mg twice a day, morphine 15 mg extended twice daily, as well as oxycodone 5 mg intermittently. She remains most painful at bedtime, and continues to try and balance sedation. 3. GERD. Patient is currently on omeprazole, she is pending endoscopy/colonoscopy and surgical appointment. She is having increased substernal discomfort, with food, continues with early satiety. 4. Constipation. Patient continues with constipation, she is unable to really relay what she has been using, she has been instructed to multiple times on a bowel program, has both MiraLAX and senna. Unclear what she is doing given her report and her short-term memory issues. 5. Anemia. Patient remains still quite symptomatic, she presents today is 7.6. She is quite pale, she is receiving some fluids related to her hypotension. She will have labs done again next week, suspect will continue to drift down. 6. Medication adherence. Patient has been feeling poorly, of concern patient is taking medications appropriately. She gets easily flustered and confused and has poor short-term memory. Will await changes in treatment program/follow-up with surgeon, and offer home visit for review of home management. 7. Advanced care planning. Patient is quite anxious regarding patient's ongoing decline. Patient does present with symptoms of failure to thrive, with both acute and chronic health problems, declining functional status, and high symptom burden. We will continue provide support for patient and particularly in response to pending work-ups. 45 minutes with high complexity related to review of symptoms, labs, reports, [id number] with counseling related to pain and symptom management, medication adherence, and anticipatory guidance
== END 2020-09-24 11:06 | disposition home or self-care (01) ==
LOC: PC 11:05
PROVIDERS: ATTEND Nurse Practitioner Adult Health
DX: Z51.5 Encounter for palliative care (principal); N63.10 Unspecified lump in the right breast, unspecified quadrant; E11.42 Type 2 diabetes mellitus with diabetic polyneuropathy; K21.9 Gastro-esophageal reflux disease without esophagitis; K59.03 Drug induced constipation; T40.2X5A Adverse effect of other opioids, initial encounter; D64.9 Anemia, unspecified; I95.9 Hypotension, unspecified; Z91.14 Patient's other noncompliance with medication regimen; R58 Hemorrhage, not elsewhere classified; Z79.84 Long term (current) use of oral hypoglycemic drugs; Z66 Do not resuscitate
CPT/HCPCS: 99215

== ENCOUNTER 2020-10-01 12:24 | Outpatient (CLI) | payer MEDICARE, OTHER ==
--- NOTE | 2020-10-03 11:56 | Mammography Report ---
BILATERAL DIGITAL DIAGNOSTIC MAMMOGRAM 3D/2D: 10/01/2020 CLINICAL: Palpable right breast lump. Baseline exam. No prior exams were available for comparison. The tissue of both breasts is predominantly fatty. There are two coarse dystrophic calcifications in the right breast corresponding in position to the p atient's palpable concern. No other significant masses, calcifications, or other findings are seen in either breast. IMPRESSION: INCOMPLETE: NEEDS ADDITIONAL IMAGING EVALUATION There are two coarse dystrophic calcifications in the right breast corresponding in position to the p atient's palpable concern. These are benign in appearance. An ultrasound will be performed to further exclude an underlying mass. This exam was interpreted at Station ID: [id number]. NOTE: For mammograms, a report in lay terms will be sent to the patient. Approximately 15% of breast malignancies will not be visualized mammographically. In the management of a palpable breast mass, a negative mammogram must not discourage biopsy of a clinically suspicious lesion. Electronically Signed By: Murali Ayala M.D. jr/:10/01/2020 13:55:44 ACR BI-RADS Category 0: Incomplete 3340F PARENCHYMAL PATTERN: (F) - The breast(s) demonstrate(s) diffuse fatty replacement. BI-RADS CATEGORY: (0) - 0 Ultrasound [id number] Immediate follow-up LATERALITY: (B)
--- NOTE | 2020-10-03 11:56 | Ultrasound Report ---
LIMITED ULTRASOUND OF RIGHT BREAST: 10/01/2020 CLINICAL: Palpable right breast lump. Comparison is made to exam dated: 10/01/2020 mammogram - [facility]. Ultrasound of the right breast was performed. There is a benign coarse shadowing calcification in the right breast at 6 o'clock anterior depth, cor responding to the patient's palpable area of concern and also corresponding to the calcification on m ammography. IMPRESSION: BENIGN There is no sonographic evidence of malignancy. Return to annual mammogram screening schedule is recommended. This exam was interpreted at Station ID: [id number]. Electronically Signed By: Murali Ayala M.D. jr/:10/03/2020 08:34:44 Ultrasound BI-RADS: 2 Benign BI-RADS CATEGORY: (2) - 2 RECOMMENDATION: (ANNUAL) - Recommend routine annual screening mammography. [id number] return to screening LATERALITY: (B)
== END 2020-10-01 12:25 | disposition home or self-care (01) ==
LOC: DI 12:24
PROVIDERS: ATTEND Nurse Practitioner Adult Health
DX: N63.41 Unspecified lump in right breast, subareolar (principal); R92.8 Other abnormal and inconclusive findings on diagnostic imaging of breast

== ENCOUNTER 2020-10-08 13:19 | Outpatient (CLI) | payer MEDICARE, OTHER ==
--- NOTE | 2020-10-08 17:11 | CONSULTATION NOTE ---
Palliative Care Follow Up - Referral Referring Provider: Yesenia Chase PA-C Time of Visit: 1:15 30 minutes Referral setting: [facility] Referral Reason: Pain of neoplastic origin/FTT/Hypotension/Met Lung CA - Information Sources Records reviewed: RN notes reviewed, Previous records reviewed History/Review of Systems obtained from: Patient Exam limitations: Clinical condition (patient better today; STM deficits continue) - History of Present Illness Update Brief HPI Update: This is a 69-year-old woman who continues to do poorly, she is doing better today fortunately, I had done a courtesy visit last week, her blood pressure was down to 94/87, we did discontinue her losartan. Her blood pressure is much better today at 120/51. Her hemoglobin has eat up to 8.2, she is receiving her second infusion of iron, and is feeling better overall. She still is quite pale, but is more alert and engaged. She has been fussing with her medications, currently she has stopped the MS Contin, and is doing 20 mg of oxycodone with her gabapentin 300 mg twice daily. She does seem more alert, and not noticing any worsening of her pain. She is quite relieved, she had been quite fearful of having breast cancer on top of her lung cancer. She does understand the seriousness of her illness, but has continued to choose to pursue treatment, and has done fairly well until his last few months. She has had functional decline, falls, and had a drop in her hemoglobin. She is going to have her EGD and colonoscopy on 10/18. The other thing she is complaining today of is actually some dysuria, patient is frequently incontinent, her WBC is elevated, and has had change in her voiding patterns. Given the constellation of this we will go ahead and get a UA and rule out infection. Past Medical History: Type 2 diabetes, hypothyroidism, advanced COPD, lower extremity edema, insomnia, CHF, hypertension, high cholesterol, history of SD, persistent incontinence, chronic vision loss, osteoarthritis, chronic back pain, history of coronary stent Social History - Living Situation Living arrangement: At home Living Situation: With friend(s) Support System: Patient rents an apartment, with support from her friend Olivia who provides a significant amount of household support and transportation. She also provides emotional support and they are quite good friends, she has identified her as her DPOA. She is still quite enthusiastic about her grand daughter Juan Ramon, she has been seeing her more as her mother is working in there providing some childcare. She is very excited to show me her picture today Medications/Allergies - Medications Home Medications: Ambulatory Orders Medication Instructions Recorded Confirmed Aspirin [Aspir-Low] 81 mg PO DAILY 04/27/15 10/08/20 Metformin HCl 1,000 mg PO DAILY 04/27/15 10/08/20 Metoprolol Tartrate 50 mg PO DAILY 04/27/15 10/08/20 Simvastatin 80 mg PO DAILY 04/27/15 10/08/20 Cyanocobalamin (Vitamin B-12) 1 tab PO DAILY 06/04/15 10/08/20 [Vitamin B12] Levothyroxine [Synthroid] 75 mcg PO DAILY 10/04/18 09/17/20 oxyCODONE [Roxicodone] 10 tab PO Q4HR PRN 01/24/19 10/08/20 Zolpidem [Ambien] 10 mg ORAL DAILY PM PRN 04/18/19 10/08/20 Albuterol Sulfate [Proair Hfa 2 puffs INH Q4HR PRN 05/30/19 10/08/20 Inhaler] polyethylene glycoL 3350 [Miralax] 8.5 - 17 mg PO DAILY PRN 01/09/20 10/08/20 Gabapentin 300 mg PO BID 02/06/20 10/08/20 Omeprazole 40 mg PO DAILY 07/23/20 10/08/20 Folic Acid 1 mg PO DAILY 10/08/20 10/08/20 - Allergies Allergies/Adverse Reactions: Allergies Allergy/AdvReac Type Severity Reaction Status Date / Time No Known Drug Allergies Allergy Verified 09/24/20 09:31 Review of Systems - Constitutional Constitutional: reports: Fatigue (slightly improved; was able to go to [employer] yesterday), Weakness, Poor appetite, Weight stable (181) - Eyes Eyes: reports: Blurred vision (eyes get bleary; strain of TV; dx with cataracts arranging surgery 09/05), Vision loss - Ears, Nose & Throat Ears, Nose & Throat: reports: Hearing loss, Dentures - Cardiovascular Cardiovascular: reports: Edema (worsening; LE taut up to knees), Exertional dyspnea, Decr. exercise tolerance, Orthopnea (needing to sleep in recliner). denies: Palpitations, Chest pain - Respiratory Respiratory: reports: Cough, Sputum production (clear/yellow tinged), Wheezing (worsening), SOB at rest, SOB with exertion, Other (uses oxygen at night;) - Gastrointestinal Gastrointestinal: reports: Nausea (low grade and persistent), Reflux/heartburn (improved with omeprazole), Poor appetite, Early satiety, Other (taste changes). denies: Constipation (using "cashews") - Genitourinary Genitourinary: reports: Dysuria (new symptom; will get UA), Frequency, Urgency, Incontinence (improved with timed toileting) - Musculoskeletal Musculoskeletal: reports: Back pain, Stiffness, Muscle weakness, Assistive devices (uses walker), Other (having more difficulty with ADLs) - Integumentary Integumentary: reports: Rash (thighs; improved on forearms), Dryness - Neurological Neurological: reports: General weakness, Numbness (bilateral peripheral neuropathy; reports NEW numbness in outer fingers of both hands; interfering with some fine motor activities), Memory problems - Psychiatric Psychiatric: reports: Depression, Anxiety - Endocrine Endocrine: reports: Diabetes type 2 (does not consistently take metformin), Hypothyroidism - Hematologic/Lymphatic Hematologic/Lymph: reports: Anemia (improved 8.2) - All Other Systems All Other Systems: reports: Reviewed and negative Physical Exam - Vital Signs Temperature: 36.2 C Pulse Rate: 76 Respiratory Rate: 18 Blood Pressure: 120/51 - Physical Exam General Appearance: positive: No acute distress, Alert Eyes Bilateral: positive: No scleral icterus, Other (periobital edema) Neck: positive: Trachea midline Cardiovascular: positive: Regular rate & rhythm Respiratory: positive: No respiratory distress, Diminished throughout, Wheezes Abdomen: positive: Soft, Obese Skin: positive: Pallor, Dryness Extremities: positive: Pedal edema (improved 1-2+) Neurologic/Psychiatric: positive: Oriented x3, Mood/affect nml, Weakness, Flat affect Palliative Care - POLST Patient has POLST: Yes POLST Status: DNR, Selective Treatment Pain: Location (feet), Severity (7/10), Comment (Patient is using gabapentin 300 mg twice daily, has stopped the morphine, and is using oxycodone 10 mg 2 tabs twice daily. Continues with moderate to severe pain, but is satisfied with current regimen.) Tiredness/Fatigue: Severe (7-10) Drowsiness/Sedation: Severe (7-10) Nausea: Mild (1-3) Anorexia: Severe (7-10) Dyspnea: Severe (7-10) Depression: Severe (7-10) Anxiety: Severe (7-10) Feelings of wellbeing/Perceived Quality of Life: Poor, Worsening Sleep: Sleeps well Constipation: Yes, Opoid induced, Intermittent constipation Performance Status: Patient remains with significant deficits, is ambulatory with a walker, but is doing better since fall when she was mostly immobilized. She is much brighter today, and able to engage in conversation. She still needs assistance from her roommate, mostly with IADLs, she is quite sedentary overall. - Palliative Care Discussion: She is feeling much better than last time I saw her, had stopped the losartan her blood pressure is better. She is feeling much relieved, she had been very anxious and worried about the pending lump in her right breast, which was negative and calcifications only. She continues to understand the seriousness of her illness, had just met with the surgeon, had found that a good experience for her. She has been very pleased with her health care team thus far, she has had many appointments and finding this somewhat overwhelming and fatiguing. Results - Lab Results Lab results reviewed: Yes Impression and Recommendations - Palliative Care Impression: This is a 69-year-old woman with metastatic lung cancer, receiving iron transfusions for suspected GI bleed, she does have a pending appointment for scope 10/18. She continues with poor appetite, taste changes, and severe peripheral neuropathy that is multifactorial. Palliative care continue provide support for pain and symptom management, psychosocial support, and anticipatory guidance Recommendations/Counseling Done: 1. Right breast lump. Fortunately this has been resolved and identified as calcifications. Patient is quite tearful and relieved. Her mammogram had gotten delayed secondary to her fall and difficulty following through on appointments. 2. Peripheral neuropathy. This is multifactorial, her lower extremity edema is improved, she has healed from her injury to her left leg and knee. She currently is using gabapentin 300 mg twice a day, has stopped the morphine, and using oxycodone 10 mg twice daily with good "enough" control. Her pain is still a 7 out of 10. She remains quite painful and continues to try and balance with sedation. She will let me know if she initiates the morphine again. 3. GERD. Patient is currently on omeprazole, she is pending endoscopy colonoscopy and has had her surgical appointment. She continues to have early satiety, intermittent substernal discomfort with eating. 4. Constipation. Patient reports she is taking MiraLAX, continues to have fluctuating status regarding this, she has been educated several times on bowel program unclear what she is actually doing at this time. 5. Anemia. Patient is at 8.2 today, is still quite pale, she is feeling better overall though. We will continue to monitor. 6. Hypotension. Patient did remember stopping the losartan, her blood pressure is better today 120/51. She reports she has been on this long-term, we discussed with her weight loss and decreased intake and counts adding to it. We will continue to monitor it, if restart, would do at lower dose. 7. Dysuria. Patient at high risk secondary incontinence, and presents with elevated white blood cell counts, will go ahead and get a UA and rule out. Specimen collected by oncology nurse. 8. Medication adherence. Patient continues have difficulty with adherence secondary to his poor short-term memory, this fluctuates. Will await outcome from surgeon, and make follow-up home visit for review of home management. 9. Advanced care planning. Patient's goals continue to focus on quality and quantity of life, she has been quite anxious with her decline, though she is feeling better today. We will continue to monitor, and provide anticipatory guidance as needed. 30 minutes With review of labs, oncology notes, mammography outcomes, [id number] for ordering of UA, evaluation of pain and symptom management, and anticipatory guidance
== END 2020-10-08 13:20 | disposition home or self-care (01) ==
LOC: PC 13:19
PROVIDERS: ATTEND Nurse Practitioner Adult Health
DX: Z51.5 Encounter for palliative care (principal); R92.1 Mammographic calcification found on diagnostic imaging of breast; E11.42 Type 2 diabetes mellitus with diabetic polyneuropathy; K21.9 Gastro-esophageal reflux disease without esophagitis; K59.03 Drug induced constipation; T40.2X5A Adverse effect of other opioids, initial encounter; Z79.84 Long term (current) use of oral hypoglycemic drugs; D64.9 Anemia, unspecified; I95.9 Hypotension, unspecified; R30.0 Dysuria; Z91.14 Patient's other noncompliance with medication regimen; Z66 Do not resuscitate
CPT/HCPCS: 99214

== ENCOUNTER 2020-10-18 08:06 | Day surgery (SDC) | payer MEDICARE, OTHER ==
[2020-10-18] MEDS ORDERED: LACTATED RINGERS 1,000 ML IV ONE ×2 (08:29→13:42)
[2020-10-18 09:28] LABS: B. PARAPERTUSSIS- RESP PCR PAN NOT DETECTED; B. PERTUSSIS- RESP PCR PANEL NOT DETECTED; C. PNEUMONIAE- RESP PCR PANEL NOT DETECTED; CORONAVIRUS 229E-RESP PCR NOT DETECTED; CORONAVIRUS HKU1-RESP PCR NOT DETECTED; CORONAVIRUS NL63-RESP PCR NOT DETECTED; CORONAVIRUS OC43-RESP PCR NOT DETECTED; HUMAN METAPNEUMOVIRUS NOT DETECTED; INFLUENZA A- RESP PCR PANEL NOT DETECTED; INFLUENZA B - RESP PCR PANEL NOT DETECTED; M. PNEUMONIAE- RESP PCR PANEL NOT DETECTED; PARAINFLUENZA VIRUS 1 NOT DETECTED; PARAINFLUENZA VIRUS 2 NOT DETECTED; PARAINFLUENZA VIRUS 3 NOT DETECTED; PARAINFLUENZA VIRUS 4 NOT DETECTED; RHINOVIRUS/ENTEROVIRUS NOT DETECTED; RSV- RESP PCR PANEL NOT DETECTED; SARS-CoV-2 -RESP PCR PANEL NOT DETECTED
--- NOTE | 2020-10-18 10:44 | ANESTHESIA ---
Pre-Anesthesia VS, & Labs - Diagnosis anemia, weight loss, - Procedure colonoscopy Vital Signs: Temp Pulse Resp BP Pulse Ox 36.5 C 106 H 14 135/70 H 94 10/18/20 08:35 10/18/20 08:35 10/18/20 08:35 10/18/20 08:35 10/18/20 08:35 Height: 5 ft 7 in Weight (kg): 80.9 kg Body Mass Index: 27.9 BMI Classification: Overweight - NPO >8 hours - Is Patient ?: No - Lab Results Current Lab Results: Laboratory Tests 10/18/20 08:57: POC Whole Bld Glucose 88 Home Medications and Allergies Aspirin [Aspir-Low] 81 mg PO DAILY 04/27/15 Metformin HCl 1,000 mg PO DAILY 04/27/15 Metoprolol Tartrate 50 mg PO DAILY 04/27/15 Simvastatin 80 mg PO DAILY 04/27/15 Cyanocobalamin (Vitamin B-12) [Vitamin B12] 1 tab PO DAILY 06/04/15 Levothyroxine [Synthroid] 75 mcg PO DAILY 10/04/18 oxyCODONE [Roxicodone] 10 tab PO Q4HR PRN 01/24/19 Zolpidem [Ambien] 10 mg ORAL DAILY PM PRN 04/18/19 Albuterol Sulfate [Proair Hfa Inhaler] 2 puffs INH Q4HR PRN 05/30/19 polyethylene glycoL 3350 [Miralax] 8.5 - 17 mg PO DAILY PRN 01/09/20 Gabapentin 300 mg PO BID 02/06/20 Omeprazole 40 mg PO DAILY 07/23/20 Folic Acid 1 mg PO DAILY 10/08/20 Allergies/Adverse Reactions: Allergies Allergy/AdvReac Type Severity Reaction Status Date / Time No Known Drug Allergies Allergy Verified 09/24/20 09:31 Anes History & Medical History - Anesthetic History Anesthesia Complications: reports: No previous complications - Medical History Cardiovascular: reports: Hypertension, High cholesterol, [place] Pulmonary: reports: COPD, Emphysema, Other (Lung cancer, O2 at night) Gastrointestinal: reports: Other Urinary: reports: Incontinence Neuro: reports: Peripheral neuropathy Musculoskeletal: reports: Osteoarthritis, Fatigue Endocrine/Autoimmune: reports: Type 2 diabetes, HyPOthyroidism Blood Disorders: reports: Anemia Skin: reports: None Smoking Status: Current every day smoker Psychosocial: reports: Opioid History of Cancer?: Yes (stage 4 lung cancer) Other Past Medical History: chemo-optivo - Surgical History General: reports: EGD Eyes Ears Nose Throat (EENT): reports: Tonsil/Adenoidectomy Cardiothoracic: reports: Coronary stent, Cardiac catheterization Urologic: reports: Bladder surgery Exam General: Alert, Oriented x3, Cooperative, No acute distress Dental: Dentures full Upper Mouth Openin Fingerbreadth Neck Mobility: Normal Mallampati classification: II Thyromental Distance: 4-6 cm Respiratory: Wheezing Mental/Cognitive Status: Alert/Oriented X3, Normal for patient Plan Anesthesia Type: IV Regional Consent for Procedure(s) Verified and Reviewed: Yes Code Status: Attempt Resuscitation ASA classification: 4-Incapacitating disease Is this case an emergency?: No
[2020-10-18] MEDS ORDERED: PROPOFOL 200 MG/20 ML VIAL IVP ONE ×4 (11:28→13:33)
[2020-10-18] MEDS ORDERED: fentaNYL 100 MCG/2 ML VIAL ONE (11:29)
[2020-10-18] MEDS ORDERED: MIDAZOLAM 2 MG/2 ML VIAL ONE (13:27)
--- NOTE | 2020-10-18 14:26 | ANESTHESIA POST OP EVALUATION ---
Anesthesia Post Eval - Post Anesthesia Eval Vitals: Last Vital Signs Temp 36.6 C 10/18/20 13:42 Pulse 79 10/18/20 14:06 Resp 20 10/18/20 14:06 BP 110/58 L 10/18/20 14:06 Pulse Ox 94 10/18/20 14:06 CV Function Including HR & BP: Stable Pain Control: Satisfactory Nausea & Vomiting: Negative Mental Status: Baseline Respiratory Status: Airway Patent Hydration Status: Satisfactory Anesthesia Complications: None
[2020-10-18 14:27] VITALS: BP 122/65
== END 2020-10-18 08:07 | disposition home or self-care (01) ==
LOC: SDS 08:06
PROVIDERS: ATTEND Surgery
PROC: 0DBP8ZX Excision of Rectum, Via Natural or Artificial Opening Endoscopic, Diagnostic (ICD-10-PCS; 2020-10-18)
PROC: 0DBM8ZZ Excision of Descending Colon, Via Natural or Artificial Opening Endoscopic (ICD-10-PCS; 2020-10-18)
PROC: 0DBL8ZZ Excision of Transverse Colon, Via Natural or Artificial Opening Endoscopic (ICD-10-PCS; 2020-10-18)
PROC: 0DB68ZX Excision of Stomach, Via Natural or Artificial Opening Endoscopic, Diagnostic (ICD-10-PCS; 2020-10-18)
PROC: 0DBM8ZX Excision of Descending Colon, Via Natural or Artificial Opening Endoscopic, Diagnostic (ICD-10-PCS; principal; 2020-10-18 10:30)
PROC: 0DBL8ZX Excision of Transverse Colon, Via Natural or Artificial Opening Endoscopic, Diagnostic (ICD-10-PCS; 2020-10-18 10:30)
DX: D64.9 Anemia, unspecified (principal); K63.5 Polyp of colon; D12.3 Benign neoplasm of transverse colon; D12.4 Benign neoplasm of descending colon; K62.1 Rectal polyp; K29.70 Gastritis, unspecified, without bleeding; K57.30 Diverticulosis of large intestine without perforation or abscess without bleeding; R63.4 Abnormal weight loss; R13.10 Dysphagia, unspecified; C34.91 Malignant neoplasm of unspecified part of right bronchus or lung; J43.9 Emphysema, unspecified; Z99.81 Dependence on supplemental oxygen; F17.200 Nicotine dependence, unspecified, uncomplicated; R68.81 Early satiety; I25.10 Atherosclerotic heart disease of native coronary artery without angina pectoris; Z20.822 Contact with and (suspected) exposure to COVID-19; I10 Essential (primary) hypertension
CPT/HCPCS: 43239; 45380; 45385; 87631; J7120; 0202U

== ENCOUNTER 2020-11-12 14:25 | Outpatient (CLI) | payer MEDICARE, OTHER ==
--- NOTE | 2020-11-12 21:58 | CONSULTATION NOTE ---
Palliative Care Follow Up - Referral Referring Provider: Yesenia Chase PA-C Time of Visit: 1500 60 minutes Referral setting: [facility] – [place] Referral Reason: Peripheral neuropathy/Anorexia/Wt. loss/Lung CA - Information Sources Records reviewed: RN notes reviewed, Previous records reviewed History/Review of Systems obtained from: Patient Exam limitations: Clinical condition (patient with STM deficits/feeling overwhelmed) - History of Present Illness Update Brief HPI Update: This is a 70-year-old woman who continues to do poorly, with presenting high symptom burden of fatigue, poor appetite, shortness of breath, and feeling overwhelmed. She has not had any improvement of her gastric symptoms, she had an EGD and a colonoscopy on 10/18 that showed gastritis and multiple colonic polyps were removed. She has early satiety, altered taste, aversion to meat, and has lost about 35 pounds since July. Social History - Living Situation Living arrangement: At home Living Situation: With friend(s) Medications/Allergies - Medications Home Medications: Ambulatory Orders Medication Instructions Recorded Confirmed Simvastatin 80 mg PO DAILY 04/27/15 11/13/20 Levothyroxine [Synthroid] 75 mcg PO DAILY 10/04/18 11/13/20 oxyCODONE [Roxicodone] 10 tab PO Q4HR PRN MDD 6 tabs (5 01/24/19 11/13/20 mg) Zolpidem [Ambien] 10 mg ORAL DAILY PM PRN 04/18/19 11/13/20 Albuterol Sulfate [Proair Hfa 2 puffs INH Q4HR PRN 05/30/19 11/13/20 Inhaler] polyethylene glycoL 3350 [Miralax] 8.5 - 17 mg PO DAILY PRN 01/09/20 11/13/20 Gabapentin 300 mg PO BID 02/06/20 11/13/20 Omeprazole 40 mg PO DAILY 07/23/20 11/13/20 Folic Acid 1 mg PO DAILY 10/08/20 11/13/20 Metoprolol Succinate [Toprol Xl] 25 mg PO DAILY 11/13/20 11/13/20 - Allergies Allergies/Adverse Reactions: Allergies Allergy/AdvReac Type Severity Reaction Status Date / Time No Known Drug Allergies Allergy Verified 10/29/20 10:44 Review of Systems - Constitutional Constitutional: reports: Fatigue, Weakness, Poor appetite, Weight loss - Eyes Eyes: reports: Blurred vision (eyes get bleary; strain of TV; dx with cataracts arranging surgery 09/05), Vision loss - Ears, Nose & Throat Ears, Nose & Throat: reports: Hearing loss, Dentures - Cardiovascular Cardiovascular: reports: Edema (worsening; LE taut up to knees), Exertional dyspnea, Decr. exercise tolerance, Orthopnea (needing to sleep in recliner). denies: Palpitations, Chest pain - Respiratory Respiratory: reports: Cough, Sputum production (clear/yellow tinged), Wheezing (worsening), SOB at rest, SOB with exertion, Other (uses oxygen at night;) - Gastrointestinal Gastrointestinal: reports: Nausea (low grade and persistent), Reflux/heartburn (improved with omeprazole), Poor appetite, Early satiety, Other (taste changes). denies: Constipation (using "cashews") - Genitourinary Genitourinary: reports: Frequency, Urgency, Incontinence - Musculoskeletal Musculoskeletal: reports: Back pain, Stiffness, Muscle weakness, Assistive agusto georgie (uses walker), Other (having more difficulty with ADLs) - Integumentary Integumentary: reports: Rash (thighs; improved on forearms), Dryness - Neurological Neurological: reports: General weakness, Numbness (bilateral peripheral neuropathy; reports NEW numbness in outer fingers of both hands; interfering with some fine motor activities), Memory problems - Psychiatric Psychiatric: reports: Depression, Anxiety - Endocrine Endocrine: reports: Diabetes type 2 (does not consistently take metformin), Hypothyroidism - Hematologic/Lymphatic Hematologic/Lymph: reports: Anemia (improved 8.2) - All Other Systems All Other Systems: reports: Reviewed and negative Physical Exam - Vital Signs Pulse Rate: 88 Respiratory Rate: 18 O2 Saturation: 89 Blood Pressure: 107/67 - Physical Exam General Appearance: positive: No acute distress, Anxious, Other (appears with muscle wasting upper and lower extremities). negative: Alert (appears very fatigued) Eyes Bilateral: positive: No scleral icterus, Other (periorbital edema) ENT: positive: No signs of dehydration Neck: positive: Trachea midline Cardiovascular: positive: Irregularly irregular Respiratory: positive: Diminished throughout. negative: Wheezes, Rales, Rhonchi Abdomen: positive: Non-tender, Soft, Obese Skin: positive: Pallor, Dryness Extremities: positive: Pedal edema (1+ right ankle;) Neurologic/Psychiatric: positive: Oriented x3, Mood/affect nml, Flat affect Palliative Care - POLST Patient has POLST: Yes POLST Status: DNR, Selective Treatment Pain: Pain worsening, Location (peripheral neuropathy in hands and feet; lower back), Severity (7/10), Comment (using oxycodone 10 mg TID, occasional long acting MS from left over of previous RX) Tiredness/Fatigue: Severe (7-10) Drowsiness/Sedation: Severe (7-10) Nausea: Moderate (4-6) Anorexia: Severe (7-10) Dyspnea: Severe (7-10) Depression: Moderate (4-6) Anxiety: Moderate (4-6) Feelings of wellbeing/Perceived Quality of Life: Poor, Worsening Sleep: Sleeps poorly Constipation: Yes, Opoid induced, Intermittent constipation Performance Status: Patient continues to have functional decline, with worsening pain, fatigue, shortness of breath. She is very sedentary, does spend most the time on the couch with her feet dependent as well as irregular sleeping hours and sleeps through most of the morning. She is getting some at least standby assist with bathing, it is getting more difficult for her. - Palliative Care Discussion: Patient describes being overwhelmed, attributes this to multiple appointments for her eye issues, with pending cataract surgery and retina specialist. She is pursuing this so in the context of quality of life, as her life is already limited and would like to able to watch TV as well as continue doing her puzzles and Ipad communications. She does feel like her quality of life is deteriorating and has had multiple appointments with her most recent EGD/colonoscopy, oncology appointments, and now needs to pursue PCP appointment for clearance for surgery. It is very difficult for her to get in and out of the apartment, thus her distress as well as being dependent on her friend Olivia. Results - Lab Results Lab results reviewed: Yes Lab and Imaging Results: Originally thought patient had labs done today, after review, and are not ordered until beginning December. Patient has not had any check on her hemoglobin since 10/08 after multiple procedures, will make arrangements for CBC and CMP particularly with pending surgery. Impression and Recommendations - Palliative Care Impression: This is a 70-year-old woman with metastatic lung cancer, recent scope with gastritis, and colon polyps. She continues with poor appetite, taste changes, weight loss, severe fatigue, weakness and functional decline, as well as severe peripheral neuropathy that is multifactorial. Patient is feeling overwhelmed, pending eye surgery and multiple appointments involved. Palliative care continue provide support for pain and symptom management, psychosocial support and anticipatory guidance Recommendations/Counseling Done: 1. Peripheral neuropathy. This is multifactorial, her lower extremity edema remains improved, currently using gabapentin 300 mg twice a day, and using oxycodone 10 mg 3 times daily, her pain remains fairly high at 7 out of 10, and limiting both her sleep in functional status. Patient this point in time does not want to do any changes or titrate medications. 2. UTI. Patient did complete antibiotic for UTI, did need to change based on C&S. Patient reports continues with incontinence but denies any further dysuria or change in voiding problems. 3. Hypertension. Patient has stopped her losartan, her blood pressure remains somewhat low, and sure if she has stopped her metoprolol, will decrease the dose to 25 mg prescription provided. Concerned about patient's medication adherence, does not recall often what she takes, and takes them from the pill bottles. She also has altered sleep day and night patterns, and does not take her meds till later in the day. 4. GERD. Patient is currently on omeprazole, she is continue this. She continues have early satiety, pain has resolved, she she remains off ASA for now. She did have endoscopy which showed gastritis. We will continue to monitor. 5. Anemia. Patient is not had any labs since 10/08, will make arrangements as no labs ordered today after her follow-up. Patient with pending surgery, though denies any active signs or symptoms of bleeding. She is quite pale and at high risk for ongoing issues. 6. Medication adherence. Patient continues have difficulty with adherence secondary poor short-term memory this fluctuates. May need a home visit for review of home management. We wrote and reviewed list today, multiple questions still yet will call and follow-up tomorrow. 7. Advanced care planning. Patient's goals continue to focus on quality and quantity of life, she continues to be quite anxious about her decline, worsening quality of life, and increasing dependence. Palliative care continue to monitor and provide anticipatory guidance as needed. 60 minutes, review of labs, scans, surgery notes, [id number] with patient for counseling regarding medication management, pain management, psychosocial support, anticipatory guidance, coordination of care with oncology team.
== END 2020-11-12 14:26 | disposition home or self-care (01) ==
LOC: PC 14:25
PROVIDERS: ATTEND Nurse Practitioner Adult Health
DX: Z51.5 Encounter for palliative care (principal); Z66 Do not resuscitate; E11.42 Type 2 diabetes mellitus with diabetic polyneuropathy; C34.90 Malignant neoplasm of unspecified part of unspecified bronchus or lung; C79.9 Secondary malignant neoplasm of unspecified site; R53.83 Other fatigue; R53.81 Other malaise; R53.1 Weakness; R63.4 Abnormal weight loss; N39.0 Urinary tract infection, site not specified; R32 Unspecified urinary incontinence; I10 Essential (primary) hypertension; K21.9 Gastro-esophageal reflux disease without esophagitis; K29.70 Gastritis, unspecified, without bleeding; R41.3 Other amnesia; R06.02 Shortness of breath; H26.9 Unspecified cataract; H91.90 Unspecified hearing loss, unspecified ear; R05 Cough; R06.2 Wheezing; R11.0 Nausea; Z79.84 Long term (current) use of oral hypoglycemic drugs; D64.9 Anemia, unspecified
CPT/HCPCS: 99215

== ENCOUNTER 2020-12-10 11:20 | Outpatient (CLI) | payer MEDICARE, OTHER ==
--- NOTE | 2020-12-10 13:23 | CONSULTATION NOTE ---
Palliative Care Follow Up - Referral Referring Provider: Yesenia Chase PA-C Time of Visit: 1120 45 minutes Referral setting: [facility] – [place] Referral Reason: CIPN/anxiety/anorexia/Met Lung CA - Information Sources Records reviewed: RN notes reviewed, Previous records reviewed History/Review of Systems obtained from: Patient Exam limitations: Clinical condition (STM deficits;) - History of Present Illness Update Brief HPI Update: This is a 70-year-old woman who continues to be challenged with moderate to high symptom burden, including but not limited to peripheral neuropathy, anxiety, depression, anorexia, fatigue, shortness of breath, and anxiety. She currently continues on her nivolumab every 2 weeks, has recently been worked up for her GI symptoms on 10/18 that showed gastritis and multiple colonic polyps. She continues to struggle with her weight, though reports it has improved a few pounds. She is "forcing herself to eat". But still continues with no appetite, early satiety, and altered taste with an aversion to meat. She is getting her cataract surgery tomorrow, she is quite excited about this, she has been overwhelmed with her multiple appointments. Then this will be followed by surgery on her retina, which is causing her some pain and discomfort. She would like to read again, and be able to see her laptop and TV better.She struggles with her pain, balancing it with medications and sedation. Currently she is taking her oxycodone 2 tabs twice a day, occasionally a third dose if she is having increased pain. As well as her gabapentin 300 mg 3 times daily, her pain decreases with sleep and in the context of putting her feet up. Patient continues with shortness of breath, continues to smoke 2 packs a day, continues with productive cough but no exacerbations of her COPD. Her other new symptom, as she did have a mesh lift put up for her bladder, but recently to her primary care provider, because she had "a stick sticking out". As it turns out her bladder suspension 20 years ago, had worked its way through her vagina. There is still some residual, there are going to give her a refer ral to gynecologyBut she did not want to deal with it until she has had her eyes done. Though she does have an elevated white count, will need to watch this closely. She is not have any further dysuria or symptoms of UTI this was treated and resolved. Past Medical History: Type 2 diabetes, hypothyroidism, advanced COPD, fluctuating lower extremity edema, insomnia, CHF, hypertension, high cholesterol, history of DE, CAD with coronary stent, persistent incontinence, chronic vision loss, osteoarthritis, chronic back pain Social History - Living Situation Living arrangement: At home Living Situation: With friend(s) Support System: Patient lives with her friend Olivia, who provides significant amount of support as far as transportation and emotionally. [place] 1 [place] She also has multiple sisters that she stays in contact with. 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 Medications/Allergies - Medications Home Medications: Ambulatory Orders Medication Instructions Recorded Confirmed Simvastatin 80 mg PO DAILY 04/27/15 12/10/20 Levothyroxine [Synthroid] 75 mcg PO DAILY 10/04/18 12/10/20 oxyCODONE [Roxicodone] 10 tab PO Q4HR PRN MDD 6 tabs (5 01/24/19 12/10/20 mg) Zolpidem [Ambien] 10 mg ORAL DAILY PM PRN 04/18/19 12/10/20 Albuterol Sulfate [Proair Hfa 2 puffs INH Q4HR PRN 05/30/19 12/10/20 Inhaler] polyethylene glycoL 3350 [Miralax] 8.5 - 17 mg PO DAILY PRN 01/09/20 12/10/20 Gabapentin 300 mg PO TID 02/06/20 12/10/20 Omeprazole 40 mg PO DAILY 07/23/20 12/10/20 Folic Acid 1 mg PO DAILY 10/08/20 12/10/20 Metoprolol Succinate [Toprol Xl] 25 mg PO DAILY 11/13/20 12/10/20 Furosemide [Lasix] 20 mg PO ONCE 11/26/20 12/10/20 - Allergies Allergies/Adverse Reactions: Allergies Allergy/AdvReac Type Severity Reaction Status Date / Time No Known Drug Allergies Allergy Verified 12/10/20 10:26 Review of Systems - Constitutional Constitutional: reports: Fatigue, Weakness, Poor appetite, Weight loss - Eyes Eyes: reports: Blurred vision (eyes get bleary; strain of TV; dx with cataracts arranging surgery 09/05), Vision loss, Other (pain in left eye) - Ears, Nose & Throat Ears, Nose & Throat: reports: Hearing loss, Dentures - Cardiovascular Cardiovascular: reports: Edema (good today), Exertional dyspnea, Decr. exercise tolerance, Orthopnea (needing to sleep in recliner). denies: Palpitations, Chest pain - Respiratory Respiratory: reports: Cough, Sputum production (clear/yellow tinged), Wheezing, SOB at rest, SOB with exertion, Other (uses oxygen at night;) - Gastrointestinal Gastrointestinal: reports: Nausea (low grade and persistent), Reflux/heartburn (improved with omeprazole), Poor appetite, Early satiety, Other (taste changes). denies: Constipation (using "cashews") - Genitourinary Genitourinary: reports: Frequency, Urgency, Incontinence - Musculoskeletal Musculoskeletal: reports: Back pain, Stiffness, Muscle weakness, Assistive devices (uses walker), Other (having more difficulty with ADLs) - Integumentary Integumentary: reports: Rash (thighs; improved on forearms), Dryness - Neurological Neurological: reports: General weakness, Numbness (bilateral peripheral neuropathy; reports NEW numbness in outer fingers of both hands; interfering with some fine motor activities; continues to worsen), Memory problems - Psychiatric Psychiatric: reports: Depression, Anxiety - Endocrine Endocrine: reports: Diabetes type 2 (does not consistently take metformin), Hypothyroidism - Hematologic/Lymphatic Hematologic/Lymph: reports: Anemia (improved 8.2) - All Other Systems All Other Systems: reports: Reviewed and negative Physical Exam - Vital Signs Temperature: 36.3 C Pulse Rate: 83 Respiratory Rate: 18 Blood Pressure: 102/56 - Physical Exam General Appearance: positive: No acute distress, Alert, Anxious Eyes Bilateral: positive: No scleral icterus ENT: positive: No signs of dehydration Neck: positive: Trachea midline, Other Respiratory: positive: No respiratory distress, Diminished throughout. negative: Wheezes Abdomen: positive: Soft, Obese Skin: positive: Pallor, Dryness, Rash Extremities: positive: Pedal edema (trace) Neurologic/Psychiatric: positive: Oriented x3, Mood/affect nml, Weakness, Flat affect Palliative Care - POLST Patient has POLST: Yes POLST Status: DNR, Selective Treatment Pain: Pain unchanged, Location (mostly feet/lower back), Severity (7/10 see HPI) Tiredness/Fatigue: Moderate (4-6) Drowsiness/Sedation: Moderate (4-6) Nausea: Mild (1-3) Anorexia: Moderate (4-6) Dyspnea: Severe (7-10) Depression: Mild (1-3) Anxiety: Moderate (4-6) Feelings of wellbeing/Perceived Quality of Life: Fair, Acceptable, Worsening Sleep: Sleeps well Constipation: Yes, Intermittent constipation Performance Status: Patient does recognize her functional decline, is able to ambulate short distances with her walker, increased difficulty with stairs in her ADLs, these are both impacted both her pain and fatigue level. - Palliative Care Discussion: Patient is somewhat anxious regarding her pending eye surgery tomorrow, has been difficult for her to manage all her multiple appointments. She does feel like her quality of life is deteriorating, she is scared as far as what the long filler cigar roller machine plan is, even though she knows that she is currently maintaining, she gets very frightened when she feels like she is "on borrowed time". At this point in time she is still perceiving she has adequate quality of life, she very much loves her granddaughter Juan Ramon which is essentially her reason for living. Results - Lab Results Lab results reviewed: Yes Impression and Recommendations - Palliative Care Impression: This is a 70-year-old woman with metastatic lung cancer, continues with fairly high symptom burden, and somewhat anxious with pending eye surgeries. Palliative care continue provide support for pain and symptom management, psychosocial support and anticipatory guidance Recommendations/Counseling Done: 1. Peripheral neuropathy. This is multifactorial, her lower extremity edema remains improved which does help with her pain. She is currently using gabapentin 300 mg 3 times a day, oxycodone 10 mg twice a day occasionally third dose. She continues to rate her pain fairly high, continues to adjust her medications accordingly but within boundaries. 2. Malfunction of her bladder mesh. Patient reports part of it was removed, will see gynecology after she is done with her eye appointments. Her white count is drifting up, discussed signs and symptoms of infection or if she had further vaginal drainage to be sure and follow-up with her PCP or alert myself. She is not had any further urinary tract infection symptoms. 3. Weight loss. Patient is trying to adjust her eating to maintain her weight, she reports she is up to 175 which is a gain of 4 pounds, she continues to dislike meat, but has added back cashews, and is "making herself eat". 4. Anxiety. This fluctuates according to how much she is feeling overwhelmed, she does get quite anxious particularly around times of her MD appointments.She does well talking about her fears and concerns, which we addressed today, particular around her pending decline and anxiety around dying. 5. Advanced care planning. Patient's goals remain to focus on quality of life, she would very much like to continue to support her granddaughter. She continues to be quite anxious about her pending decline, and increasing dependence. Palliative care continue to monitor and provide anticipatory guidance as needed 45 minutes with Review of oncology notes, scans, labs, [id number] for monitoring of symptoms, counseling for anxiety, and anticipatory guidance
== END 2020-12-10 11:21 | disposition home or self-care (01) ==
LOC: PC 11:20
PROVIDERS: ATTEND Nurse Practitioner Adult Health
DX: Z51.5 Encounter for palliative care (principal); E11.42 Type 2 diabetes mellitus with diabetic polyneuropathy; T83.728A Exposure of other implanted mesh into organ or tissue, initial encounter; R63.4 Abnormal weight loss; F41.9 Anxiety disorder, unspecified; C34.90 Malignant neoplasm of unspecified part of unspecified bronchus or lung; C79.9 Secondary malignant neoplasm of unspecified site; F17.200 Nicotine dependence, unspecified, uncomplicated; Z79.84 Long term (current) use of oral hypoglycemic drugs; Z66 Do not resuscitate
CPT/HCPCS: 99215

== ENCOUNTER 2021-01-07 12:19 | Outpatient (CLI) | payer MEDICARE, OTHER ==
--- NOTE | 2021-01-07 16:34 | CONSULTATION NOTE ---
Palliative Care Follow Up - Referral Referring Provider: Yesenia Chase PA-C Time of Visit: 1230 45 minutes Referral setting: [facility] Referral Reason: CIPN/Anxiety/anorexia/Met Lung CA - Information Sources Records reviewed: Previous records reviewed History/Review of Systems obtained from: Patient Exam limitations: Clinical condition (mild STM deficits) - History of Present Illness Update Brief HPI Update: This is a 70-year-old woman who continues to be challenged with moderate to high symptom burden, including but not limited to peripheral neuropathy, anxiety, depression, anorexia, fatigue, shortness of breath and functional decline. She continues on her nivolumab every 2 weeks, and is known to be in radiographic remission of her metastatic lung cancer from her last scans. She has had her 2 cataracts removed, continues with some retinal damage of her left eye, but vision has improved dramatically and has improved her quality of life. She does have a known malfunction of her mesh lift of her bladder, she has a pending referral to gynecology but has not caused her further problems at this time. Patient has fairly severe peripheral neuropathy, this is multifactorial including her diabetes, and side effect of her treatment. She is currently taking her gabapentin 300 mg 2-3 times a day, she ran out of her oxycodone so had to return to her morphine which makes her more groggy. She is finding she is needing to take oxycodone 10 mg every 4-6 hours while awake but this does provide her sufficient relief. We did discuss changing her from 5 mg tabs to 10 mg to decrease pill burden with next prescription. She continues with shortness of breath, continues to smoke 2 packs a day with productive cough, fluctuating wheezing, but no recent exacerbations of her COPD. Past Medical History: I do diabetes, hypothyroidism, advanced COPD, fluctuating lower extremity edema, insomnia, CHF, hypertension, high cholesterol, history of [place], CAD with coronary stent, persistent incontinence, chronic vision loss, osteoarthritis, chronic back pain Social History - Living Situation Living arrangement: At home Living Situation: With friend(s) Support System: Patient lives with her friend Olivia, who provides significant mount support is far as transportation, IADLs, and emotionally. [place] 1 [place] 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 Medications/Allergies - Medications Home Medications: Ambulatory Orders Medication Instructions Recorded Confirmed Simvastatin 80 mg PO DAILY 04/27/15 01/08/21 Levothyroxine [Synthroid] 75 mcg PO DAILY 10/04/18 01/08/21 oxyCODONE [Roxicodone] 10 tab PO Q4HR PRN MDD switching 01/24/19 01/08/21 to 10 mg tabs 5 MDD Zolpidem [Ambien] 10 mg ORAL DAILY PM PRN 04/18/19 01/08/21 Albuterol Sulfate [Proair Hfa 2 puffs INH Q4HR PRN 05/30/19 01/08/21 Inhaler] polyethylene glycoL 3350 [Miralax] 8.5 - 17 mg PO DAILY PRN 01/09/20 01/08/21 Gabapentin 300 mg PO TID 02/06/20 01/08/21 Omeprazole 40 mg PO DAILY 07/23/20 01/08/21 Folic Acid 1 mg PO DAILY 10/08/20 01/08/21 Metoprolol Succinate [Toprol Xl] 25 mg PO DAILY 11/13/20 01/08/21 Furosemide [Lasix] 20 mg PO ONCE 11/26/20 01/08/21 - Allergies Allergies/Adverse Reactions: Allergies Allergy/AdvReac Type Severity Reaction Status Date / Time No Known Drug Allergies Allergy Verified 12/10/20 10:26 Review of Systems - Constitutional Constitutional: reports: Fatigue, Weakness, Poor appetite, Weight loss (79.9) - Eyes Eyes: reports: Vision loss (improved with cataract surgery), Other (pain in left eye from "retinal wrinkle") - Ears, Nose & Throat Ears, Nose & Throat: reports: Hearing loss, Dentures - Cardiovascular Cardiovascular: reports: Edema (good today; fluctuates), Exertional dyspnea, Decr. exercise tolerance, Orthopnea (needing to sleep in recliner intermittently). denies: Palpitations, Chest pain - Respiratory Respiratory: reports: Cough, Sputum production (clear/yellow tinged), Wheezing, SOB at rest, SOB with exertion, Other (uses oxygen at night;) - Gastrointestinal Gastrointestinal: reports: Nausea (low grade and persistent), Poor appetite, Early satiety, Other (taste changes). denies: Constipation (using "cashews"), Reflux/heartburn (improved with omeprazole) - Genitourinary Genitourinary: reports: Frequency, Urgency, Incontinence - Musculoskeletal Musculoskeletal: reports: Back pain, Stiffness, Muscle weakness, Assistive devices (uses walker), Other (having more difficulty with ADLs) - Integumentary Integumentary: reports: Rash (thighs; improved on forearms), Dryness - Neurological Neurological: reports: General weakness, Numbness (bilateral peripheral neuropathy; reports NEW numbness in outer fingers of both hands; interfering with some fine motor activities; continues to worsen), Memory problems - Psychiatric Psychiatric: reports: Depression, Anxiety - Endocrine Endocrine: reports: Diabetes type 2 (does not consistently take metformin), Hypothyroidism - Hematologic/Lymphatic Hematologic/Lymph: reports: Anemia (improved 8.2) - All Other Systems All Other Systems: reports: Reviewed and negative Physical Exam - Vital Signs Temperature: 36.4 C Pulse Rate: 77 Respiratory Rate: 20 Blood Pressure: 128/54 - Physical Exam General Appearance: positive: No acute distress, Alert Eyes Bilateral: positive: No scleral icterus ENT: positive: No signs of dehydration Neck: positive: Trachea midline, Other Cardiovascular: positive: Regular rate & rhythm Respiratory: positive: Diminished throughout, Wheezes (exp wheezes today). negative: No respiratory distress (difficulty with mask) Abdomen: positive: Soft, Obese Skin: positive: Pallor, Dryness, Rash Extremities: positive: Pedal edema (trace) Neurologic/Psychiatric: positive: Oriented x3, Mood/affect nml, Weakness, Flat affect Palliative Care - POLST Patient has POLST: Yes POLST Status: DNR, Selective Treatment Pain: Pain unchanged, Location (hands and feet), Severity (7/10) Tiredness/Fatigue: Severe (7-10) Drowsiness/Sedation: Severe (7-10) Nausea: Mild (1-3) Anorexia: Moderate (4-6) Dyspnea: Severe (7-10) Depression: Moderate (4-6) Anxiety: Moderate (4-6) Feelings of wellbeing/Perceived Quality of Life: Poor, Worsening Sleep: Variable sleep pattern Constipation: Yes, Opoid induced, Managed, Comment (Patient is found by eating her cashews she is keeping her bowels moving, she is also added oatmeal and increased fiber.) Performance Status: Patient's functional status is severely limited by her pain and fatigue, she is using the walker, she has having increased trouble with ADLs. She is quite sedentary and spends most the time in a recliner. - Palliative Care Discussion: Discussion today centered on life reflection, exploring patient's feelings regarding current situation, how past experiences influence these, and what she is hoping for in the context of quality and quantity of life. Patient is quite realistic about her diagnosis, and has been doing and mostly completed her end-of-life planning processes. Impression and Recommendations - Palliative Care Impression: This is a 62-year-old woman with metastatic lung cancer, currently in r adiographic remission, but does present with high symptom burden. Palliative care continue provide support for pain and symptom management, psychosocial support and counseling, and anticipatory guidance Recommendations/Counseling Done: 1. Chemotherapy-induced peripheral neuropathy. This is multifactorial, she is currently using gabapentin 300 mg 2-3 times a day, is having exacerbation of her pain, uses oxycodone 10 mg 3-4 times a day, discussed decreasing pill burden, will order 10 mg tabs next time she did run out this time. She used morphine in the meantime which she does not like how it makes her feel. She continues to rate her pain at a 7 out of 10 severity, but does continue to adjust her medications accordingly within limitations/boundaries. 2. Malfunction of her bladder mesh. Patient has not had any further complications regarding this. She has finished all her eye surgeries, plan is for her to follow-up with gynecology. She is not having further urinary tract infection symptoms or vaginal drainage. 3. Weight loss. Patient has tried to "make herself eat", has added protein, is doing better with her intake and has added back cashews. She feels like she is doing with what she can within her control. Does not want an appetite stimulant. 4. Anxiety. This fluctuates according how she is feeling overwhelmed, she has completed her eye surgeries with good results. She does get quite anxious particular around times of her MD appointments, counseling provided regarding her fears and concerns and anticipatory guidance provided. 5. Advanced care planning. Patient's goals remain to focus on quality of life, she is very much wanting to continue as far as quantity to support her granddaughter. She feels like she has good support from her housemate Olivia, and her goal is eventually to have a at home. She does get quite anxious about her pending decline and increasing dependence. Palliative care continue to monitor and provide anticipatory guidance as needed 45 minutes with review of oncology notes, labs, [id number] with patient, and counseling for pain and symptom management and anticipatory guidance.
== END 2021-01-07 12:20 | disposition home or self-care (01) ==
LOC: PC 12:19
PROVIDERS: ATTEND Nurse Practitioner Adult Health
DX: Z51.5 Encounter for palliative care (principal); G62.0 Drug-induced polyneuropathy; T45.1X5A Adverse effect of antineoplastic and immunosuppressive drugs, initial encounter; C34.90 Malignant neoplasm of unspecified part of unspecified bronchus or lung; E11.42 Type 2 diabetes mellitus with diabetic polyneuropathy; M54.9 Dorsalgia, unspecified; J44.9 Chronic obstructive pulmonary disease, unspecified; F41.9 Anxiety disorder, unspecified; F32.9 Major depressive disorder, single episode, unspecified; E03.9 Hypothyroidism, unspecified; I10 Essential (primary) hypertension; R63.0 Anorexia; R53.83 Other fatigue; R06.02 Shortness of breath; R53.81 Other malaise; F17.210 Nicotine dependence, cigarettes, uncomplicated; R32 Unspecified urinary incontinence; R35.0 Frequency of micturition; R39.15 Urgency of urination; H54.7 Unspecified visual loss; H91.90 Unspecified hearing loss, unspecified ear; R11.0 Nausea; Z66 Do not resuscitate; Z74.09 Other reduced mobility; R63.4 Abnormal weight loss
CPT/HCPCS: 99215

== ENCOUNTER 2021-03-18 10:30 | Outpatient (CLI) | payer MEDICARE, OTHER ==
--- NOTE | 2021-03-18 15:15 | CONSULTATION NOTE ---
Palliative Care Follow Up - Referral Referring Provider: Yesenia Chase PA-C Time of Visit: 1030 45 minutes Referral setting: [facility] [place] Referral Reason: CIPN/Anxiety/Met Lung CA/Depression - Information Sources Records reviewed: Previous records reviewed History/Review of Systems obtained from: Patient Exam limitations: Clinical condition (with STM deficits) - History of Present Illness Update Brief HPI Update: This is a 70-year-old woman who continues to be challenged with her peripheral neuropathy, anxiety, depression and fatigue. She does have metastatic lung cancer, and continues on her nivolumab every 2 weeks, and is known to be in radiographic remission from her last scans. She has had fluctuating mood, most recently started on Lexapro 10 mg by oncology, with moderate improvement. She is looking forward to [place], continues to struggle with her severe peripheral neuropathy which is multifactorial. She is currently taking her gabapentin 2-3 times a day, and oxycodone 10 mg 3 times a day. She continues with shortness of breath, continues to smoke 2 packs a day with productive cough, she has fluctuating levels of wheezing, but no recent exacerbations of her COPD. Past Medical History: Type 2 diabetes, hypothyroidism, advanced COPD, fluctuating lower extremity edema, insomnia, CHF, hypertension, high cholesterol, history of [place], CAD with coronary stent, persistent incontinence, chronic vision loss, osteoarthritis, chronic back pain Social History - Living Situation Living arrangement: At home Living Situation: With friend(s) Support System: Patient lives at home with her friend Olivia, who provides caregiving support as far as transportation, IADLs, picks up her medications, and emotional support as well. [place] 1 [place], she has multiple sisters who she stays in contact with. 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 Medications/Allergies - Medications Home Medications: Ambulatory Orders Medication Instructions Recorded Confirmed Simvastatin 80 mg PO DAILY 04/27/15 03/03/21 Levothyroxine [Synthroid] 75 mcg PO DAILY 10/04/18 03/03/21 oxyCODONE [Roxicodone] 10 tab PO Q4HR PRN MDD switching 01/24/19 03/03/21 to 10 mg tabs 5 MDD Zolpidem [Ambien] 10 mg ORAL DAILY PM PRN 04/18/19 03/03/21 Albuterol Sulfate [Proair Hfa 2 puffs INH Q4HR PRN 05/30/19 03/03/21 Inhaler] polyethylene glycoL 3350 [Miralax] 8.5 - 17 mg PO DAILY PRN 01/09/20 03/03/21 Gabapentin 300 mg PO TID 02/06/20 03/03/21 Omeprazole 40 mg PO DAILY 07/23/20 03/03/21 Folic Acid 1 mg PO DAILY 10/08/20 03/03/21 Metoprolol Succinate [Toprol Xl] 25 mg PO DAILY 11/13/20 03/03/21 Furosemide [Lasix] 20 mg PO ONCE 11/26/20 03/03/21 Escitalopram [Lexapro] 10 mg PO DAILY #90 tablet 03/03/21 - Allergies Allergies/Adverse Reactions: Allergies Allergy/AdvReac Type Severity Reaction Status Date / Time No Known Drug Allergies Allergy Verified 12/10/20 10:26 Review of Systems - Constitutional Constitutional: reports: Fatigue, Weakness, Poor appetite, Weight stable (80.8) - Eyes Eyes: reports: Blurred vision, Vision loss - Ears, Nose & Throat Ears, Nose & Throat: reports: Hearing loss, Dentures, Dry mouth - Cardiovascular Cardiovascular: reports: Edema (good today; fluctuates), Exertional dyspnea, Decr. exercise tolerance, Orthopnea (needing to sleep in recliner intermittently). denies: Palpitations, Chest pain - Respiratory Respiratory: reports: Cough, Sputum production (clear/yellow tinged), Wheezing, SOB at rest, SOB with exertion, Other (uses oxygen at night;) - Gastrointestinal Gastrointestinal: reports: Nausea, Reflux/heartburn, Poor appetite, Early satiety - Genitourinary Genitourinary: reports: Frequency, Urgency, Incontinence - Musculoskeletal Musculoskeletal: reports: Back pain, Stiffness, Muscle weakness, Assistive devices (uses walker), Other (having more difficulty with ADLs) - Integumentary Integumentary: reports: Rash (thighs; improved on forearms), Dryness - Neurological Neurological: reports: General weakness, Numbness (bilateral peripheral neuropathy; reports NEW numbness in outer fingers of both hands; interfering with some fine motor activities; continues to worsen), Memory problems - Psychiatric Psychiatric: reports: Depression, Anxiety - Endocrine Endocrine: reports: Diabetes type 2 (does not consistently take metformin), Hypothyroidism - Hematologic/Lymphatic Hematologic/Lymph: reports: Anemia (improved 10.3) - All Other Systems All Other Systems: reports: Reviewed and negative Physical Exam - Vital Signs Temperature: 36.3 C Pulse Rate: 72 Respiratory Rate: 18 O2 Saturation: 86 Blood Pressure: 126/57 - Physical Exam General Appearance: positive: No acute distress, Alert Eyes Bilateral: positive: Other (periorbital edema) ENT: positive: No signs of dehydration. negative: Pharyngeal erythema, Oral lesions Neck: positive: Trachea midline Respiratory: negative: No respiratory distress (noted difficulty with mask; coughing spasms but non productive) Abdomen: positive: Soft, Obese Skin: positive: Pallor, Dryness Extremities: positive: Pedal edema (in ankles trace) Neurologic/Psychiatric: positive: Oriented x3, Mood/affect nml, Weakness, Flat affect Palliative Care - POLST Patient has POLST: Yes POLST Status: DNR, Selective Treatment Pain: Location (Patient identifies most of her pain is the peripheral neuropathy sharp shooting bilateral hands and feet. She does have increased pain and discomfort with prolonged standing in her lower back. This is been longstanding and chronic), Severity (7/10), Comment (Patient struggles balancing side effects of medication and sedation and pain relief) Tiredness/Fatigue: Severe (7-10) Drowsiness/Sedation: Severe (7-10) Nausea: Mild (1-3) Anorexia: Moderate (4-6) Dyspnea: Severe (7-10) Depression: Moderate (4-6) Anxiety: Moderate (4-6) Feelings of wellbeing/Perceived Quality of Life: Fair, Acceptable, No change Sleep: Variable sleep pattern Constipation: Yes, Opoid induced, Intermittent constipation Performance Status: Patient continues to struggle to meet her ADLs, this is a combination of dyspnea and weakness as well as her severe peripheral neuropathy she also has increased pain with standing because of chronic back pain. She does pace herself, is able to shower but make sure her friend Olivia is nearby. She tries to assist with household tasks. She can drive if things are set up for her as far as the car and leaving the home. She does live in an upstairs apartment, and struggles with the stairs. She does use a walker when she is out or feeling weaker. - Palliative Care Discussion: Discussion today continues, with patient's concerns and anxieties, continuing to reflect on quality and quantity of life. Patient is quite realistic about her diagnosis, has completed most of her end-of-life planning processes. She very much enjoyed the holidays and is looking forward to [facility]. She continues grateful for the time that she has been given, and continues to hope to be able to be in her granddaughter's life for as long as possible as long as her quality of life is acceptable. Results - Lab Results Lab results reviewed: Yes Impression and Recommendations - Palliative Care Impression: This is a 62-year-old woman with metastatic lung cancer, currently in radiographic remission, but does present with high symptom burden. Palliative care continue to provide support for pain and symptom management, psychosocial support and counseling and anticipatory guidance Recommendations/Counseling Done: 1. Chemotherapy-induced peripheral neuropathy. This is multifactorial, she is currently using gabapentin 300 mg to 3 times a day, uses oxycodone 10 mg 3 times a day, he continues to rate her pain is 7 out of 10 in severity. She does adjust her medications accordingly within the limitations and boundaries as her pain does fluctuate depending on weather, activity level, and mood 2. Anxiety. This fluctuates according to her how she is feeling overwhelmed, she currently is doing better. She does feel the Lexapro may have been helping. She is quite clear she "has a meltdown about 2 times a years" she feels like she is recovering. She is excited about the holidays, and continues to set her sites on being "grandma". 3. Lower extremity edema. This fluctuates, currently it is only trace. She has difficulty with medication adherence is not quite sure if she is taking the furosemide though it does sound like she might be. Given her creatinine of 1.6 and continued control, encouraged her to try it may be every other day, patient has difficulty making adjustments or remembering if there is anything different than the medication bottle. 4. Advanced care planning. Patient's goals remain to focus on quality of life, she is very much wanting to continue as far as quantity as long as it is acceptable.She feels like she has good support from her housemate Olivia, her goal of remains eventually to have a at home. She is quite anxious about her pending decline and increasing dependence, she currently is doing fairly well though, and is looking forward to the holidays. Palliative care continue to provide anticipatory to support and guidance as needed. 45 minutes with review of chart, labs, oncology notes, counseling [id number], regarding pain and symptom management and anticipatory guidance and coordination of care with oncology team
== END 2021-03-18 10:31 | disposition home or self-care (01) ==
LOC: PC 10:30
PROVIDERS: ATTEND Nurse Practitioner Adult Health
DX: Z51.5 Encounter for palliative care (principal); G62.0 Drug-induced polyneuropathy; T45.1X5A Adverse effect of antineoplastic and immunosuppressive drugs, initial encounter; F41.9 Anxiety disorder, unspecified; R60.0 Localized edema; F17.200 Nicotine dependence, unspecified, uncomplicated; Z66 Do not resuscitate
CPT/HCPCS: 99215

== ENCOUNTER 2021-04-15 13:15 | Outpatient (CLI) | payer MEDICARE, OTHER ==
--- NOTE | 2021-04-15 20:00 | CONSULTATION NOTE ---
Palliative Care Follow Up - Referral Referring Provider: Yesenia Chase PA-C Time of Visit: 1315 30 min Referral setting: MAC Referral Reason: CIPN/Depression/Wt. loss/Met Lung CA - Information Sources Records reviewed: Previous records reviewed History/Review of Systems obtained from: Patient Exam limitations: Clinical condition (STM deficitsThis is a 70-year-old woman with metastatic lung cancer, continues on nivolumab every 2 weeks. She continues to be challenged by her peripheral neuropathy, anxiety, depression and persistent fatigue. She continues with lower extremity pain, sharp shooting, as well as numbness, fine mot) - History of Present Illness Update Brief HPI Update: This is a 70-year-old woman with metastatic lung cancer, continues on nivolumab every 2 weeks. She continues to be challenged by her peripheral neuropathy, anxiety, depression and persistent fatigue. She continues with lower extremity pain, sharp shooting, as well as numbness, fine motor deficits. She is currently Managed by taking her gabapentin 300 mg 2-3 times a day, and oxycodone 10 mg 3-4 times a day. She continues with shortness of breath, cough, and smoking 2 packs a day. She has fluctuating levels of wheezing, but no recent exacerbations of her COPD. Past Medical History: Type 2 diabetes, hypothyroidism, advanced COPD, fluctuating lower extremity edema, insomnia, CHF, hypertension, high cholesterol, history of [place], CAD with coronary stent, persistent incontinence, chronic vision loss, osteoarthritis, chronic back pain Social History - Living Situation Living arrangement: At home Living Situation: With friend(s) Support System: Patient lives with her very good friend Olivia, who provides caregiving support transportation, IADLs, picks up her medications, and emotional support as well. [place] 1 [place] and the granddaughter who comes frequently to visit. 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 She lives in an apartment, but is 2 stories up of stairs.She still drives short distances. Medications/Allergies - Medications Home Medications: Ambulatory Orders Medication Instructions Recorded Confirmed Simvastatin 80 mg PO DAILY 04/27/15 04/16/21 Levothyroxine [Synthroid] 75 mcg PO DAILY 10/04/18 04/16/21 oxyCODONE [Roxicodone] 10 tab PO Q4HR PRN MDD switching 01/24/19 04/16/21 to 10 mg tabs 5 MDD Zolpidem [Ambien] 10 mg ORAL DAILY PM PRN 04/18/19 04/16/21 Albuterol Sulfate [Proair Hfa 2 puffs INH Q4HR PRN 05/30/19 04/16/21 Inhaler] polyethylene glycoL 3350 [Miralax] 8.5 - 17 mg PO DAILY PRN 01/09/20 04/16/21 Gabapentin 300 mg PO TID 02/06/20 04/16/21 Omeprazole 40 mg PO DAILY 07/23/20 04/16/21 Folic Acid 1 mg PO DAILY 10/08/20 04/16/21 Metoprolol Succinate [Toprol Xl] 25 mg PO DAILY 11/13/20 04/16/21 Furosemide [Lasix] 20 mg PO DAILY 11/26/20 04/16/21 Escitalopram [Lexapro] 10 mg PO DAILY #90 tablet 03/03/21 04/16/21 - Allergies Allergies/Adverse Reactions: Allergies Allergy/AdvReac Type Severity Reaction Status Date / Time No Known Drug Allergies Allergy Verified 12/10/20 10:26 Review of Systems - Constitutional Constitutional: reports: Fatigue (most problematic symptom), Weakness, Poor appetite, Weight loss - Eyes Eyes: reports: Blurred vision, Vision loss, Other - Ears, Nose & Throat Ears, Nose & Throat: reports: Hearing loss, Dentures, Dry mouth - Cardiovascular Cardiovascular: reports: Edema (good today; fluctuates), Exertional dyspnea, Decr. exercise tolerance, Orthopnea (needing to sleep in recliner intermittently). denies: Palpitations, Chest pain - Respiratory Respiratory: reports: Cough, Sputum production (clear/yellow tinged), Wheezing, SOB at rest, SOB with exertion, Other (uses oxygen at night;) - Gastrointestinal Gastrointestinal: reports: Nausea, Reflux/heartburn, Poor appetite, Early satiety - Genitourinary Genitourinary: reports: Frequency, Urgency, Incontinence - Musculoskeletal Musculoskeletal: reports: Back pain, Stiffness, Muscle weakness, Assistive devices (uses walker), Other (having more difficulty with ADLs) - Integumentary Integumentary: reports: Rash (thighs; improved on forearms), Dryness - Neurological Neurological: reports: General weakness, Numbness (bilateral peripheral neuropathy; reports NEW numbness in outer fingers of both hands; interfering with some fine motor activities; continues to worsen), Memory problems - Psychiatric Psychiatric: reports: Depression, Anxiety - Endocrine Endocrine: reports: Diabetes type 2 (does not consistently take metformin), Hypothyroidism - Hematologic/Lymphatic Hematologic/Lymph: reports: Anemia (improved 10.3) - All Other Systems All Other Systems: reports: Reviewed and negative Physical Exam - Vital Signs Temperature: 36.9 C Pulse Rate: 66 Respiratory Rate: 18 O2 Saturation: 89 (ra @ rest; with deep breathing 93%) Blood Pressure: 118/61 - Physical Exam General Appearance: positive: No acute distress, Alert, Anxious Eyes Bilateral: positive: No scleral icterus ENT: positive: No signs of dehydration Neck: positive: Trachea midline Cardiovascular: positive: Regular rate & rhythm Respiratory: positive: No respiratory distress, Diminished throughout Skin: positive: Pallor, Dryness Extremities: positive: No pedal edema Neurologic/Psychiatric: positive: Oriented x3, Mood/affect nml, Weakness, Flat affect Palliative Care - POLST Patient has POLST: Yes POLST Status: DNR, Selective Treatment Pain: Pain unchanged, Location (Patient complains of lower extremity peripheral edema, this is been fairly persistent. She uses her gabapentin. She also has worsening lower back pain, at this is exacerbated with standing, this has been chronic and long-term as well.) Tiredness/Fatigue: Severe (7-10) Drowsiness/Sedation: Severe (7-10) Nausea: Mild (1-3) Anorexia: Moderate (4-6) Dyspnea: Severe (7-10) Depression: Moderate (4-6) Anxiety: Moderate (4-6) Feelings of wellbeing/Perceived Quality of Life: Fair, Acceptable, No change Sleep: Sleep improved Constipation: Yes, Opoid induced, Managed Performance Status: Patient continues to struggle with her ADLs, this is multifactorial with combination of dyspnea, weakness, neuropathy and her increased pain with standing because of chronic back pain.She does use a walker when she is feeling weaker, and is using standby assist for for safety and bathing - Palliative Care Discussion: Discussion continues to reflect concerns and anxieties with reflecting on quality of life issues. She is quite realistic about her diagnosis, remains committed to her granddaughter. She still perceives her quality of life is acceptable, and remains grateful for the time she has been given. Impression and Recommendations - Palliative Care Impression: This is a 62-year-old woman with metastatic lung cancer, currently in radiographic remission. She continues with high symptom burden of dyspnea, peripheral neuropathy pain, chronic back pain, and persistent severe fatigue. Palliative care continue to provide support for pain and symptom management, psychosocial support and counseling for anticipatory guidance Recommendations/Counseling Done: 1. Chemotherapy-induced peripheral neuropathy. This is multifactorial, she is currently using gabapentin 300 mg 3 times daily, oxycodone 10 mg 3-4 times a day, continues to rate her pain at a 7 out of 10 in severity. She does adjust medications according with the limitations and boundaries her pain does fluctuate depending on weather, activity level, and mood. She is satisfied with current regimen, no changes needed. Rx for oxycodone sent to [facility] 2. Weight loss. Patient continues to struggle with anorexia, taste changes, occasional swallowing difficulties. She has maintained her weight but has had slow persistent weight loss over the last several months. Suspect this is adding to her fatigue, with muscle wasting. 3. Anxiety. This fluctuates according to how she is feeling overwhelmed, she is currently doing very well post Holidays. She does feel like the Lexapro is helping her overall mood, 4. Advanced care planning. Patient's goals remain to focus on quality of life, she is continue to want to continue continue with treatment for quantity of life. She feels like she has good support from her housemate Olivia and her goal remains eventually to have a at home. She is quite anxious about being dependent or her pending decline, but is doing fairly well right now and is continue to be grateful. Palliative care continue provide anticipatory guidance and support as needed 30 minutes with review of oncology notes, labs, counseling [id number] regarding pain and symptom management, anticipatory guidance and coordination of care with oncology team
== END 2021-04-15 13:16 | disposition home or self-care (01) ==
LOC: PC 13:15
PROVIDERS: ATTEND Nurse Practitioner Adult Health
DX: Z51.5 Encounter for palliative care (principal); G62.0 Drug-induced polyneuropathy; T45.1X5A Adverse effect of antineoplastic and immunosuppressive drugs, initial encounter; R63.4 Abnormal weight loss; F41.9 Anxiety disorder, unspecified; F17.200 Nicotine dependence, unspecified, uncomplicated; Z66 Do not resuscitate
CPT/HCPCS: 99214

== ENCOUNTER 2021-05-27 13:22 | Outpatient (CLI) | payer MEDICARE, OTHER ==
--- NOTE | 2021-05-27 16:30 | CONSULTATION NOTE ---
Palliative Care Follow Up - Referral Referring Provider: Yesenia Chase PA-C Time of Visit: 1345 45 minutes Referral setting: MAC Referral Reason: CIPN/Met Lung CA/COPD - Information Sources Records reviewed: Previous records reviewed History/Review of Systems obtained from: Patient Exam limitations: Clinical condition (STM deficits) - History of Present Illness Update Brief HPI Update: This is a 70-year-old woman with metastatic lung cancer, continues on nivolumab every 2 weeks. She is due to have her CT scan next week. She continues with severe peripheral neuropathy, is finding increasing her gabapentin to 4 times a day has shown improvement, she reports she is having pruritus with her oxycodone, we did discuss trialing hydrocodone instead. She reports her depression is well controlled, still has intermittent anxiety, and persistent fatigue. She continues with shortness of breath, cough, and smoking 2 packs of cigarettes a day. She has fluctuating levels of wheezing, but no recent exacerbations of her COPD Past Medical History: Type 2 diabetes, hypothyroidism, advanced COPD, fluctuating lower extremity edema, insomnia, CHF, hypertension, high cholesterol, history of [place], CAD with coronary stent, persistent incontinence, chronic vision loss, osteoarthritis, chronic back pain Social History - Living Situation Living arrangement: At home Living Situation: With friend(s) Support System: Patient lives in an apartment, with her good friend Olivia, who provides caregiving, support for shopping, and intermittent transportation. She provides emotional support as well. Patient [place] have 1 [place] and her granddaughter Juan Ramon who comes frequently to visit. She has multiple sisters whom she stays in contact with. 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 Medications/Allergies - Medications Home Medications: Ambulatory Orders Medication Instructions Recorded Confirmed Simvastatin 80 mg PO DAILY 04/27/15 05/27/21 Levothyroxine [Synthroid] 75 mcg PO DAILY 10/04/18 05/27/21 Zolpidem [Ambien] 10 mg ORAL DAILY PM PRN 04/18/19 05/27/21 Albuterol Sulfate [Proair Hfa 2 puffs INH Q4HR PRN 05/30/19 05/27/21 Inhaler] polyethylene glycoL 3350 [Miralax] 8.5 - 17 mg PO DAILY PRN 01/09/20 05/27/21 Gabapentin 300 mg PO QID 02/06/20 05/27/21 Omeprazole 40 mg PO DAILY 07/23/20 05/27/21 Folic Acid 1 mg PO DAILY 10/08/20 05/27/21 Metoprolol Succinate [Toprol Xl] 25 mg PO DAILY 11/13/20 05/27/21 Furosemide [Lasix] 20 mg PO DAILY 11/26/20 05/27/21 Escitalopram [Lexapro] 10 mg PO DAILY #90 tablet 03/03/21 05/27/21 Ferrous Gluconate 324 mg PO BID 05/27/21 05/27/21 HYDROcod/ACETAM 5/325 [Warren 5/325] 1 - 2 tab PO TID PRN 05/27/21 05/27/21 - Allergies Allergies/Adverse Reactions: Allergies Allergy/AdvReac Type Severity Reaction Status Date / Time No Known Drug Allergies Allergy Verified 12/10/20 10:26 Review of Systems - Constitutional Constitutional: reports: Fatigue (most problematic symptom), Weakness, Poor appetite, Weight stable - Eyes Eyes: reports: Blurred vision, Vision loss, Other - Ears, Nose & Throat Ears, Nose & Throat: reports: Hearing loss, Dentures, Dry mouth - Cardiovascular Cardiovascular: reports: Edema (good today; fluctuates), Exertional dyspnea, Decr. exercise tolerance, Orthopnea (needing to sleep in recliner intermittently). denies: Palpitations, Chest pain - Respiratory Respiratory: reports: Cough, Sputum production (clear/yellow tinged), Wheezing, SOB at rest, SOB with exertion, Other (uses oxygen at night;) - Gastrointestinal Gastrointestinal: reports: Nausea (intermittent), Reflux/heartburn, Poor appetite, Early satiety - Genitourinary Genitourinary: reports: Frequency, Urgency, Incontinence - Musculoskeletal Musculoskeletal: reports: Back pain, Stiffness, Muscle weakness, Assistive devices (uses walker) - Integumentary Integumentary: reports: Rash (thighs; improved on forearms), Dryness - Neurological Neurological: reports: General weakness, Numbness (bilateral peripheral neuropathy; reports NEW numbness in outer fingers of both hands; interfering with some fine motor activities; continues to worsen), Memory problems - Psychiatric Psychiatric: reports: Depression, Anxiety - Endocrine Endocrine: reports: Diabetes type 2 (does not consistently take metformin), Hypothyroidism - Hematologic/Lymphatic Hematologic/Lymph: reports: Anemia (improved 10.3) - All Other Systems All Other Systems: reports: Reviewed and negative Physical Exam - Vital Signs Temperature: 36.4 C Respiratory Rate: 18 - Physical Exam General Appearance: positive: No acute distress, Alert Eyes Bilateral: positive: No scleral icterus ENT: positive: No signs of dehydration Neck: positive: Trachea midline Cardiovascular: positive: Regular rate & rhythm Respiratory: positive: No respiratory distress, Diminished throughout, Wheezes (scattered wheezes) Abdomen: positive: Other (rounded) Skin: positive: Pallor, Dryness Extremities: positive: No pedal edema Neurologic/Psychiatric: positive: Oriented x3, Mood/affect nml, Weakness, Flat affect Palliative Care - POLST Patient has POLST: Yes POLST Status: DNR, Selective Treatment Pain: Pain worsening, Location (feet; finding if uses Gabapentin q4 hours during day pain is better) Tiredness/Fatigue: Severe (7-10) Drowsiness/Sedation: Severe (7-10) Nausea: Mild (1-3) Anorexia: Moderate (4-6) Dyspnea: Severe (7-10) Depression: Mild (1-3) Anxiety: Mild (1-3) Feelings of wellbeing/Perceived Quality of Life: Good, Acceptable, Improved, Comment (most limiting is her foot pain) Sleep: Sleeps well Constipation: Yes, Opoid induced, Intermittent constipation Performance Status: Patient ambulatory around the house, uses walker with longer distances. She does have trouble navigating the stairs. She is able to bathe independently though is having some fluctuation in her ability to tolerate this secondary to fatigue and breathlessness. - Palliative Care Discussion: Patient is feeling much improved emotionally, she is in a good mood today. She continues to be quite realistic about her diagnosis, remains committed to staying alive for her granddaughter. She still perceives her quality of life is acceptable, and remains grateful for time given. She does have a pending CT scan which always bring some anxiety up for her.She does feel like she has plan for her end-of-life, does not have anything else left to make arrangements for. She has been saving money for her plans. Results - Lab Results Lab results reviewed: Yes Impression and Recommendations - Palliative Care Impression: This is a 70-year-old woman with metastatic lung cancer, currently in radiographic remission. She continues with high symptom burden of severe peripheral neuropathy in her feet, chronic back pain, dyspnea, and persistent fatigue. Palliative care continue to provide support for pain and symptom management, psychosocial support and counseling for anticipatory guidance Recommendations/Counseling Done: 1. Chemotherapy induced peripheral neuropathy. This is multifactorial, patient does have diabetes so has been in good control. She currently is been using her gabapentin 300 mg 4 times a day, reporting this helps more than the oxycodone. She continues to rate her pain a 10 out of 10 when it exacerbates. She has having some pruritus with her oxycodone, would like to try another opioid, did order hydrocodone 5 mg / 325 mg tabs, will trial 1-2 tabs. She reports she is using opioid about 1 time a day. Counseling provided regarding the timing and use of her gabapentin, will increase her allotted amount to 4 times a day. 2. Weight loss. Patient reports her weight is stable this last month. She reports she is doing better with eating and drinking. She has maintained her weight. She still has some muscle wasting, suspect this adds to her fatigue. 3. Anxiety. This fluctuates according to how she is feeling in her "overwhelmed". Right now she feels like she is doing very well. She has appreciated the Lexapro which is helping her overall mood 4. Advanced care planning. Patient's goals remain to focus on quality of life. She continues to accept treatment. She feels like she is getting support from her housemate Olivia, and her goal remains eventually to have a at home. She is quite anxious regarding being dependent or pending decline but right now is doing fairly well. Palliative care continue provide anticipatory guidance and support as needed. 45 minutes review of oncology notes, labs, treatment plan, [id number] with patient regarding pain and symptom management, psychosocial support, and anticipatory guidance
== END 2021-05-27 13:23 | disposition home or self-care (01) ==
LOC: PC 13:22
PROVIDERS: ATTEND Nurse Practitioner Adult Health
DX: Z51.5 Encounter for palliative care (principal); Z85.118 Personal history of other malignant neoplasm of bronchus and lung; G62.2 Polyneuropathy due to other toxic agents; T45.1X5A Adverse effect of antineoplastic and immunosuppressive drugs, initial encounter; E11.9 Type 2 diabetes mellitus without complications; F41.9 Anxiety disorder, unspecified; Z66 Do not resuscitate; M62.50 Muscle wasting and atrophy, not elsewhere classified, unspecified site; K59.03 Drug induced constipation; L29.9 Pruritus, unspecified; T40.2X5A Adverse effect of other opioids, initial encounter; F32.A Depression, unspecified; F17.210 Nicotine dependence, cigarettes, uncomplicated; J44.9 Chronic obstructive pulmonary disease, unspecified; R53.83 Other fatigue; R32 Unspecified urinary incontinence; I11.0 Hypertensive heart disease with heart failure; I50.9 Heart failure, unspecified; I25.10 Atherosclerotic heart disease of native coronary artery without angina pectoris; Z95.5 Presence of coronary angioplasty implant and graft
CPT/HCPCS: 99215

== ENCOUNTER 2021-07-11 13:00 | Outpatient (CLI) | payer MEDICARE, OTHER ==
--- NOTE | 2021-07-11 16:44 | CONSULTATION NOTE ---
Palliative Care Follow Up - Referral Referring Provider: Yesenia Chase PA-C Time of Visit: [id number] Referral setting: Home Referral Reason: Depression/CHF acute on chronic/Met Lung CA - Information Sources Records reviewed: Previous records reviewed History/Review of Systems obtained from: Patient Exam limitations: Clinical condition (STM deficits) - History of Present Illness Update Brief HPI Update: This is a 70-year-old woman with metastatic lung cancer, who has been on second line nivolumab since 05/2016. She recently had restaging scan, that showed disease progression with new bilateral lung nodules and enlarged mediastinal lymphadenopathy. She is still receiving nivolumab while she is waiting for jaramillo rasib which is an oral treatment, but awaiting to find co-pay assistance as it is greater than $18,000. Patient gets unfortunately she easily gets overwhelmed, and the application process is getting her distress. She feels like she is losing time by not moving forward with her treatment. She does have yet another application here, but does not know how to fill it out. She is getting assistance from the [facility], will take application and see if it is what they are waiting for. Patient in the meantime appears to have an exacerbation of her heart failure, she has got increased lower extremity edema, has had significant weight gain despite recent weight loss. She has taut lower extremity edema up to her mid thigh, increased shortness of breath, and is feeling more poorly overall.She has been on baseline furosemide 20 mg daily, which she takes intermittently. Unfortunately she also eats a fairly high salt and high sugar diet.She is very anxious about her progression of disease, she continues with severe pain worsened by her lower extremity edema, has been taking more gabapentin with some relief, has found even the hydrocodone/acetaminophen causing pruritus but is still needing it 2 or 3 times a day secondary to her worsening pain. What has improved actually is her appetite, she is getting weaker, she is needing the walker whereas previously she could walk short distances without it. She is scared and somewhat "pissed off" regarding looking at her decline and end-of-life. Past Medical History: Type 2 diabetes, hypothyroidism, advanced COPD, CHF, insomnia, hypertension, high cholesterol, history of OH, CAD with coronary stent, persistent incontinence, chronic vision loss, osteoarthritis, chronic back pain, diagnosis of Lung cancer originally 06/18 Social History - Living Situation Living arrangement: At home Living Situation: With friend(s) Support System: Patient lives in an apartment with her good friend Olivia, who provides caregiving and support through shopping and intermittent transportation. She is dependent very much on her for emotional support as well. [place] her granddaughter Juan Ramon, who is here today visiting. 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 Unfortunately her apartment is up a story of stairs, she still drives short distances. Medications/Allergies - Medications Home Medications: Ambulatory Orders Medication Instructions Recorded Confirmed Simvastatin 80 mg PO DAILY 04/27/15 07/11/21 Levothyroxine [Synthroid] 75 mcg PO DAILY 10/04/18 07/11/21 Zolpidem [Ambien] 10 mg ORAL DAILY PM PRN 04/18/19 07/11/21 Albuterol Sulfate [Proair Hfa 2 puffs INH Q4HR PRN 05/30/19 07/11/21 Inhaler] polyethylene glycoL 3350 [Miralax] 8.5 - 17 mg PO DAILY PRN 01/09/20 07/11/21 Gabapentin 600 mg PO BID MDD tid 02/06/20 07/11/21 Omeprazole 40 mg PO DAILY 07/23/20 07/11/21 Folic Acid 1 mg PO DAILY 10/08/20 07/11/21 Metoprolol Succinate [Toprol Xl] 25 mg PO DAILY 11/13/20 07/11/21 Furosemide [Lasix] 40 mg PO BID MDD x 3 days, then 11/26/20 07/11/21 daily Escitalopram [Lexapro] 10 mg PO DAILY #90 tablet 03/03/21 07/11/21 Ferrous Gluconate 324 mg PO DAILY 05/27/21 07/11/21 HYDROcod/ACETAM 5/325 [[place] 5/325] 1 - 2 tab PO TID PRN 05/27/21 07/11/21 Sotorasib [Lumakras] 120 mg PO DAILY MDD not started yet 06/25/21 07/11/21 Ondansetron Odt [Zofran Odt] 4 mg TL Q6H PRN #30 tab 06/30/21 07/11/21 - Allergies Allergies/Adverse Reactions: Allergies Allergy/AdvReac Type Severity Reaction Status Date / Time No Known Drug Allergies Allergy Verified 12/10/20 10:26 Review of Systems - Constitutional Constitutional: reports: Fatigue (most problematic symptom), Weakness (worsening, needing walker for all ambulation), Night sweats, Weight gain (appears mostly fluid) - Eyes Eyes: reports: Blurred vision, Vision loss, Other - Ears, Nose & Throat Ears, Nose & Throat: reports: Hearing loss, Dentures, Dry mouth - Cardiovascular Cardiovascular: reports: Edema (significant; has been getting worse over 2-3 weeks), Exertional dyspnea, Decr. exercise tolerance, Orthopnea (needing to sleep in recliner intermittently). denies: Palpitations, Chest pain - Respiratory Respiratory: reports: Cough, Sputum production (clear/yellow tinged), Wheezing, Orthopnea, SOB at rest, SOB with exertion, Other (uses oxygen at night; today presents hypoxic 88% room air; patient continues to smoke non stop) - Gastrointestinal Gastrointestinal: reports: Nausea (intermittent), Reflux/heartburn, Poor appetite, Early satiety, Good appetite (improved) - Genitourinary Genitourinary: reports: Frequency, Urgency, Incontinence - Musculoskeletal Musculoskeletal: reports: Back pain, Stiffness, Muscle weakness, Assistive devices (uses walker now even for short distances) - Integumentary Integumentary: reports: Rash (thighs; improved on forearms), Dryness - Neurological Neurological: reports: General weakness, Numbness (bilateral peripheral neuropathy; reports NEW numbness in outer fingers of both hands; interfering with some fine motor activities; continues to worsen), Memory problems, Abnormal gait (difficulty walking with edema) - Psychiatric Psychiatric: reports: Depression, Anxiety (worried with treatment not working and on hold while trying to get covered) - Endocrine Endocrine: reports: Diabetes type 2 (does not consistently take metformin), Hypothyroidism - Hematologic/Lymphatic Hematologic/Lymph: reports: Anemia (improved 11.4) - All Other Systems All Other Systems: reports: Reviewed and negative Physical Exam - Vital Signs Temperature: 96.7 C Pulse Rate: 90 Respiratory Rate: 18 O2 Saturation: 88 (room air @ rest; 96% on 2 liters) Blood Pressure: 92/64 - Physical Exam General Appearance: positive: Alert, Mild distress (with worsening edema; sob), Anxious Eyes Bilateral: positive: No scleral icterus Neck: positive: Trachea midline Cardiovascular: positive: Regular rate & rhythm Respiratory: positive: Diminished throughout, Wheezes (scattered wheezes), Rales (fine crackles in bases). negative: No respiratory distress (more respiratory effort with conversation; movement) Abdomen: positive: Other (rounded) Skin: positive: Pallor, Dryness Extremities: positive: Pedal edema (taut LE up to midthigh; no weeping but skin stretched) Neurologic/Psychiatric: positive: Oriented x3, Mood/affect nml, Weakness, Flat affect Palliative Care - POLST Patient has POLST: Yes POLST Status: DNR, Selective Treatment Pain: Pain worsening, Location (feet with worsening LE edema/CIPN), Severity (12/13), Comment (using 2 300 mg gabapentin bid; hydrocodone 5/325 mg 2-3x day) Tiredness/Fatigue: Severe (7-10) Drowsiness/Sedation: Moderate (4-6) Nausea: Mild (1-3) Anorexia: Mild (1-3) Dyspnea: Severe (7-10) Depression: Moderate (4-6) Anxiety: Severe (7-10) Feelings of wellbeing/Perceived Quality of Life: Poor, Worsening Sleep: Variable sleep pattern Constipation: Yes, Opoid induced, Managed Performance Status: Patient perceives that she has had ongoing decline over the last 2 months, but more acutely over the last 2 weeks with increased shortness of breath, lower extremity weakness, and worsening lower extremity edema.She does spend most of her time in the recliner, is too anxious at this point in time to bathe. She does get shaky and with tremors with any increase in her activity level. - Palliative Care Discussion: Patient had been very anxious as I had made arrangements come to the house, she was thinking I had bad news to bring as I know that she does not like to cry in front of people. Reassured her it had more to do with I had canceled her appointment earlier in the week, as well as have not seen her since she got the news of her progressive disease.She does understand she is on borrowed time, she is feeling quite anxious as she has not started new treatment and continue to feel overwhelmed by the application process to get her co-pays covered. She is having a lot of angst regarding where she is currently, she is hoping to eat out some more quality and quantity, but does perceive that she is declining overall. She has been doing planning for her end-of-life, and is feeling some more distressed regarding this. Results - Lab Results Lab results reviewed: Yes Impression and Recommendations - Palliative Care Impression: This is a 70-year-old woman with progressive metastatic lung cancer, now moving on to next treatment when available. Unfortunately today she presents with acute on chronic heart failure, with worsening lower extremity edema, crackles and worsening shortness of breath. Patient continues with high symptom burden of severe peripheral neuropathy now exacerbated by the edema, chronic back pain, worsening dyspnea, and persistent fatigue. Palliative care continue provide support for pain and symptom management, psychosocial support and counseling for anticipatory guidance Recommendations/Counseling Done: 1. Acute on chronic heart failure. Patient presents with worsening lower extremity edema, weight gain, increased shortness of breath and crackles. Patient on baseline furosemide 20 mg, will increase to 40 mg twice daily x3 days, then 40 mg daily with labs for follow-up. Patient does have already altered kidney function, patient does not want to go to emergency room or urgent care. Has been counseled though with increased severity of shortness of breath, or symptoms to access over weekend. 2. Chemotherapy-induced peripheral neuropathy. This is multifactorial, patient does have diabetes she has been using her gabapentin, will go ahead and increase to 600 mg tabs, but instructed to take 600 mg twice daily. She feels the gabapentin helps more than the opioid, unfortunately switching from the oxycodone to the hydrocodon/acetaminophen did not diminish her pruritus significantly. 3. Anxiety. This is been fluctuating, she currently feels very overwhelmed with the application process for her co-pays, with the news that she is got progressive disease, though she has been grateful for the time, she is quite worried about losing her independence and worsening functional status. 4. Advanced care planning. Patient's goals remain to focus on quality of life, she continues to accept treatment is hopeful to be able to move on to next treatment line though is quite anxious. She gets good support from her housemate Olivia, her goal remains eventually to have a at home that this is feeling much more real to her today. She is quite anxious about remaining independent, or becoming more dependent. She declines to go to ED/urgent care today, would like to try and manage without acute intervention. Has been counseled regarding severity of her symptoms and concerns regarding her CKD. 60 minutes with greater than 50% of this time in counseling regarding signs and symptoms of worsening heart failure, instructed to get labs Wednesday or , psychosocial support given regarding patient's most recent disease process, and progression. Anticipatory guidance, and coordination of care with oncology team
== END 2021-07-11 13:01 | disposition home or self-care (01) ==
LOC: PC 13:00
PROVIDERS: ATTEND Nurse Practitioner Adult Health
DX: Z51.5 Encounter for palliative care (principal); C34.90 Malignant neoplasm of unspecified part of unspecified bronchus or lung; I11.0 Hypertensive heart disease with heart failure; I50.9 Heart failure, unspecified; I25.10 Atherosclerotic heart disease of native coronary artery without angina pectoris; R32 Unspecified urinary incontinence; G62.0 Drug-induced polyneuropathy; T45.1X5A Adverse effect of antineoplastic and immunosuppressive drugs, initial encounter; E11.42 Type 2 diabetes mellitus with diabetic polyneuropathy; F41.9 Anxiety disorder, unspecified; Z66 Do not resuscitate; D64.9 Anemia, unspecified; F32.A Depression, unspecified; R35.0 Frequency of micturition; R39.15 Urgency of urination
CPT/HCPCS: 99350

== ENCOUNTER 2021-07-15 11:36 | Outpatient (CLI) | payer MEDICARE, OTHER | END 2021-07-15 11:37 | disposition critical access hospital (66) | LOC: EMS 11:36 | DX: R40.4 Transient alteration of awareness (principal) | CPT/HCPCS: A0425; A0427 ==

== ENCOUNTER 2021-07-15 12:07 | Inpatient (IN) | payer MEDICARE, OTHER ==
[2021-07-15] MEDS ORDERED: NALOXONE 0.4 MG/ML VIAL IVP STA (12:16)
[2021-07-15] MEDS ORDERED: SODIUM CHLORIDE 0.9% 1,000 ML IV STA (12:34)
--- NOTE | 2021-07-15 12:34 | ED Physician Documentation ---
History of Present Illness - Stated complaint Stated Complaint: UNRESPONSIVE - Chief complaint Chief Complaint: Resp - History obtained from History obtained from: Patient - Additonal information Additional information: 62-year-old female with a history of metastatic lung adenocarcinoma, chronic hypoxia with COPD, continues to smoke. Chronic kidney disease, depression, hypothyroidism, diabetes. Her cancer has reportedly continued to spread despite treatment. She is undergoing consults with palliative care. Her roommate called 911 today because the patient was unresponsive with a bottle of pills around her. EMS did not bring in the pill bottles, therefore we do not know what the medications were. The patient was given Narcan with mild relief. Review of Systems Unable to obtain: Unresponsive PD PAST MEDICAL HISTORY - Past Medical History Cardiovascular: Hypertension, High cholesterol, [place] Respiratory: COPD, Emphysema, Other (Lung cancer, O2 at night) Neuro: Peripheral neuropathy Endocrine/Autoimmune: Type 2 diabetes, HyPOthyroidism GI: Other : Incontinence HEENT: Chronic vision loss, Other Psych: Depression, Anxiety Musculoskeletal: Osteoarthritis, Fatigue Derm: None - Past Surgical History Past Surgical History: Yes General: EGD Cardiovascular: Coronary stent, Cardiac catheterization HEENT: Tonsil/Adenoidectomy - Present Medications Home Medications: Ambulatory Orders Medication Instructions Recorded Confirmed Simvastatin 80 mg PO DAILY 04/27/15 07/15/21 Levothyroxine [Synthroid] 75 mcg PO DAILY 10/04/18 07/15/21 Zolpidem [Ambien] 10 mg ORAL QPM PRN 04/18/19 07/15/21 Albuterol Sulfate [Proair Hfa 2 puffs INH Q4HR PRN 05/30/19 07/15/21 Inhaler] polyethylene glycoL 3350 [Miralax] 8.5 - 17 mg PO DAILY PRN 01/09/20 07/15/21 Gabapentin 600 mg PO BID 02/06/20 07/15/21 Omeprazole 40 mg PO DAILY 07/23/20 07/15/21 Folic Acid 1 mg PO DAILY 10/08/20 07/15/21 Metoprolol Succinate [Toprol Xl] 25 mg PO DAILY 11/13/20 07/15/21 Furosemide [Lasix] 20 mg PO DAILY 11/26/20 07/15/21 Escitalopram [Lexapro] 10 mg PO DAILY #90 tablet 03/03/21 07/15/21 Ferrous Gluconate 324 mg PO DAILY 05/27/21 07/15/21 HYDROcod/ACETAM 5/325 [[place] 5/325] 1 - 2 tab PO TID PRN 05/27/21 07/15/21 Sotorasib [Lumakras] 960 mg PO DAILY MDD not started yet 06/25/21 07/15/21 Ondansetron Odt [Zofran Odt] 4 mg TL Q6H PRN #30 tab 06/30/21 07/15/21 - Allergies Allergies/Adverse Reactions: Allergies Allergy/AdvReac Type Severity Reaction Status Date / Time No Known Drug Allergies Allergy Verified 12/10/20 10:26 - Social History Does the pt smoke?: Yes Smoking Status: Current every day smoker Does the pt drink ETOH?: No Does the pt have substance abuse?: No - Immunizations Immunizations: TDAP >10years/unknown - POLST Patient has POLST: Yes PD ED PE NORMAL - Vitals Vital signs reviewed: Yes - General General: No acute distress - HEENT HEENT: Atraumatic, Moist mucous membranes, Other (Pinpoint pupils bilaterally) - Neck Neck: Supple, no meningeal sign - Cardiac Cardiac: RRR, No gallop - Respiratory Respiratory: No respiratory distress, Clear bilaterally - Abdomen Abdomen: Soft, Non tender, Non distended - Derm Derm: Warm and dry - Extremities Extremities: Other (1+ bilateral lower extremity pitting edema) - Neuro Eye Opening: To Pain Motor: Withdraws to Pain Verbal: Inappropriate GCS Score: 9 Results - Vitals Vitals: Vital Signs - 24 hr 07/15/21 07/15/21 07/15/21 12:10 12:30 13:48 Temperature 36.7 C Heart Rate 92 86 Heart Rate [ Apical] Respiratory 11 L 22 20 Rate Blood Pressure 95/54 L 103/51 L 101/52 L Blood Pressure [Right Brachial artery] O2 Saturation 96 99 07/15/21 07/15/21 07/15/21 14:00 14:45 14:58 Temperature 36.9 C Heart Rate 87 82 Heart Rate [ 90 Apical] Respiratory 21 23 Rate Blood Pressure 98/61 Blood Pressure 110/59 L [Right Brachial artery] O2 Saturation 89 L 90 L 07/15/21 07/15/21 07/15/21 15:02 15:15 15:30 Temperature Heart Rate Heart Rate [ 88 87 87 Apical] Respiratory 21 21 19 Rate Blood Pressure Blood Pressure 110/59 L 111/53 L 96/77 [Right Brachial artery] O2 Saturation 91 L 95 94 07/15/21 07/15/21 07/15/21 15:45 16:00 16:30 Temperature Heart Rate Heart Rate [ 82 78 Apical] Respiratory 22 19 18 Rate Blood Pressure Blood Pressure 98/56 L 94/48 L 93/50 L [Right Brachial artery] O2 Saturation 94 95 94 07/15/21 07/15/21 16:54 17:00 Temperature Heart Rate 92 Heart Rate [ 87 Apical] Respiratory 16 Rate Blood Pressure Blood Pressure 121/54 L [Right Brachial artery] O2 Saturation 96 Oxygen O2 Source BIPAP Oxygen Flow Rate 7 - EKG (time done) 1246 Rate: Rate (enter#) (90) Rhythm: NSR [place]: Normal Intervals: Normal [place] QRS: Normal Ischemia: Normal ST segments - Labs Labs: Laboratory Tests 07/15/21 07/15/21 07/15/21 12:30 12:30 12:30 WBC 15.2 H RBC 3.50 L Hgb 11.0 L Hct 37.2 MCV 106.3 H MCH 31.4 H MCHC 29.6 L RDW 16.4 H Plt Count 224 MPV 8.9 Neut # (Auto) 13.4 H Lymph # (Auto) 0.8 L Page # (Auto) 0.9 Eos # (Auto) 0.0 Baso # (Auto) 0.1 Absolute Nucleated RBC 0.00 Nucleated RBC % 0.0 Bld Gas Analysis Time Sample Site ABG pH ABG pCO2 ABG pO2 ABG HCO3 ABG Total CO2 ABG O2 Saturation ABG Base Excess Hema Test O2 Delivery Device O2 Liters/Min FiO2 EPAP IPAP Sodium 137 Potassium 4.9 Chloride 95 L Carbon Dioxide 31 Anion Gap 11.0 BUN 33 H Creatinine 1.9 H Estimated GFR (MDRD) 26 L Glucose 159 H Lactic Acid Calcium 8.3 L Total Bilirubin 0.5 AST 10 ALT < 10 L Alkaline Phosphatase 103 Troponin I High Sens B-Natriuretic Peptide Total Protein 7.4 Albumin 3.5 Globulin 3.9 Albumin/Globulin Ratio 0.9 L Lipase 124 H TSH 2.73 Urine Color Urine Clarity Urine pH Ur Specific [place] Urine Protein Urine Glucose (UA) Urine Ketones Urine Occult Blood Urine Nitrite Urine Bilirubin Urine Urobilinogen Ur Leukocyte Esterase Urine RBC Urine WBC Urine WBC Clumps Ur Squamous Epith Cells Urine Bacteria Ur Microscopic Review Urine Culture Comments Nasal Screen MRSA (PCR) Salicylates < 4.0 Urine Opiates Screen Ur Oxycodone Screen Urine Methadone Screen Ur Propoxyphene Screen Acetaminophen < 10 L Ur Barbiturates Screen Ur Tricyclics Screen Ur Phencyclidine Scrn Ur Amphetamine Screen U Methamphetamines Scrn U Benzodiazepines Scrn Urine Cocaine Screen U Cannabinoids Screen Ethyl Alcohol < 5.0 SARS-CoV-2 (PCR) 07/15/21 07/15/21 07/15/21 12:30 12:30 12:30 WBC RBC Hgb Hct MCV MCH MCHC RDW Plt Count MPV Neut # (Auto) Lymph # (Auto) Page # (Auto) Eos # (Auto) Baso # (Auto) Absolute Nucleated RBC Nucleated RBC % Bld Gas Analysis Time Sample Site ABG pH ABG pCO2 ABG pO2 ABG HCO3 ABG Total CO2 ABG O2 Saturation ABG Base Excess Hema Test O2 Delivery Device O2 Liters/Min FiO2 EPAP IPAP Sodium Potassium Chloride Carbon Dioxide Anion Gap BUN Creatinine Estimated GFR (MDRD) Glucose Lactic Acid Calcium Total Bilirubin AST ALT Alkaline Phosphatase Troponin I High Sens 58.1 H* B-Natriuretic Peptide 741 H Total Protein Albumin Globulin Albumin/Globulin Ratio Lipase TSH Urine Color YELLOW Urine Clarity HAZY Urine pH 5.0 Ur Specific [place] 1.020 Urine Protein TRACE Urine Glucose (UA) NEGATIVE Urine Ketones NEGATIVE Urine Occult Blood NEGATIVE Urine Nitrite POSITIVE H Urine Bilirubin NEGATIVE Urine Urobilinogen 0.2 (NORMAL) Ur Leukocyte Esterase TRACE H Urine RBC None Seen Urine WBC >25 H Urine WBC Clumps PRESENT Ur Squamous Epith Cells RARE Squamous Urine Bacteria Many H Ur Microscopic Review INDICATED Urine Culture Comments INDICATED Nasal Screen MRSA (PCR) Salicylates Urine Opiates Screen POSITIVE H Ur Oxycodone Screen POSITIVE H Urine Methadone Screen NEGATIVE Ur Propoxyphene Screen NEGATIVE Acetaminophen Ur Barbiturates Screen NEGATIVE Ur Tricyclics Screen NEGATIVE Ur Phencyclidine Scrn NEGATIVE Ur Amphetamine Screen NEGATIVE U Methamphetamines Scrn NEGATIVE U Benzodiazepines Scrn NEGATIVE Urine Cocaine Screen NEGATIVE U Cannabinoids Screen NEGATIVE Ethyl Alcohol SARS-CoV-2 (PCR) 07/15/21 07/15/21 07/15/21 12:30 13:37 14:37 WBC RBC Hgb Hct MCV MCH MCHC RDW Plt Count MPV Neut # (Auto) Lymph # (Auto) Page # (Auto) Eos # (Auto) Baso # (Auto) Absolute Nucleated RBC Nucleated RBC % Bld Gas Analysis Time 1441 Sample Site LEFT RADIAL ABG pH 7.25 L ABG pCO2 72 H* ABG pO2 47 L* ABG HCO3 30.7 H ABG Total CO2 32.9 H ABG O2 Saturation 80 L* ABG Base Excess 1.8 Hema Test POSITIVE O2 Delivery Device OXYMASK O2 Liters/Min 4.00 FiO2 EPAP IPAP Sodium Potassium Chloride Carbon Dioxide Anion Gap BUN Creatinine Estimated GFR (MDRD) Glucose Lactic Acid 0.9 Calcium Total Bilirubin AST ALT Alkaline Phosphatase Troponin I High Sens B-Natriuretic Peptide Total Protein Albumin Globulin Albumin/Globulin Ratio Lipase TSH Urine Color Urine Clarity Urine pH Ur Specific [place] Urine Protein Urine Glucose (UA) Urine Ketones Urine Occult Blood Urine Nitrite Urine Bilirubin Urine Urobilinogen Ur Leukocyte Esterase Urine RBC Urine WBC Urine WBC Clumps Ur Squamous Epith Cells Urine Bacteria Ur Microscopic Review Urine Culture Comments Nasal Screen MRSA (PCR) Salicylates Urine Opiates Screen Ur Oxycodone Screen Urine Methadone Screen Ur Propoxyphene Screen Acetaminophen Ur Barbiturates Screen Ur Tricyclics Screen Ur Phencyclidine Scrn Ur Amphetamine Screen U Methamphetamines Scrn U Benzodiazepines Scrn Urine Cocaine Screen U Cannabinoids Screen Ethyl Alcohol SARS-CoV-2 (PCR) NOT DETECTED 07/15/21 07/15/21 07/15/21 15:05 15:10 17:00 WBC RBC Hgb Hct MCV MCH MCHC RDW Plt Count MPV Neut # (Auto) Lymph # (Auto) Page # (Auto) Eos # (Auto) Baso # (Auto) Absolute Nucleated RBC Nucleated RBC % Bld Gas Analysis Time Sample Site ABG pH ABG pCO2 ABG pO2 ABG HCO3 ABG Total CO2 ABG O2 Saturation ABG Base Excess Hema Test O2 Delivery Device O2 Liters/Min FiO2 EPAP IPAP Sodium Potassium Chloride Carbon Dioxide Anion Gap BUN Creatinine Estimated GFR (MDRD) Glucose Lactic Acid Calcium Total Bilirubin AST ALT Alkaline Phosphatase Troponin I High Sens 162.1 H* 197.4 H* B-Natriuretic Peptide Total Protein Albumin Globulin Albumin/Globulin Ratio Lipase TSH Urine Color Urine Clarity Urine pH Ur Specific [place] Urine Protein Urine Glucose (UA) Urine Ketones Urine Occult Blood Urine Nitrite Urine Bilirubin Urine Urobilinogen Ur Leukocyte Esterase Urine RBC Urine WBC Urine WBC Clumps Ur Squamous Epith Cells Urine Bacteria Ur Microscopic Review Urine Culture Comments Nasal Screen MRSA (PCR) NEGATIVE Salicylates Urine Opiates Screen Ur Oxycodone Screen Urine Methadone Screen Ur Propoxyphene Screen Acetaminophen Ur Barbiturates Screen Ur Tricyclics Screen Ur Phencyclidine Scrn Ur Amphetamine Screen U Methamphetamines Scrn U Benzodiazepines Scrn Urine Cocaine Screen U Cannabinoids Screen Ethyl Alcohol SARS-CoV-2 (PCR) 07/15/21 17:45 WBC RBC Hgb Hct MCV MCH MCHC RDW Plt Count MPV Neut # (Auto) Lymph # (Auto) Page # (Auto) Eos # (Auto) Baso # (Auto) Absolute Nucleated RBC Nucleated RBC % Bld Gas Analysis Time 1758 Sample Site LEFT RADIAL ABG pH 7.35 ABG pCO2 61 H* ABG pO2 68 L ABG HCO3 33.6 H ABG Total CO2 35.0 H ABG O2 Saturation 92 L ABG Base Excess 8.0 H Hema Test POSITIVE O2 Delivery Device BiPAP O2 Liters/Min FiO2 40.00 EPAP 5 IPAP 12 Sodium Potassium Chloride Carbon Dioxide Anion Gap BUN Creatinine Estimated GFR (MDRD) Glucose Lactic Acid Calcium Total Bilirubin AST ALT Alkaline Phosphatase Troponin I High Sens B-Natriuretic Peptide Total Protein Albumin Globulin Albumin/Globulin Ratio Lipase TSH Urine Color Urine Clarity Urine pH Ur Specific [place] Urine Protein Urine Glucose (UA) Urine Ketones Urine Occult Blood Urine Nitrite Urine Bilirubin Urine Urobilinogen Ur Leukocyte Esterase Urine RBC Urine WBC Urine WBC Clumps Ur Squamous Epith Cells Urine Bacteria Ur Microscopic Review Urine Culture Comments Nasal Screen MRSA (PCR) Salicylates Urine Opiates Screen Ur Oxycodone Screen Urine Methadone Screen Ur Propoxyphene Screen Acetaminophen Ur Barbiturates Screen Ur Tricyclics Screen Ur Phencyclidine Scrn Ur Amphetamine Screen U Methamphetamines Scrn U Benzodiazepines Scrn Urine Cocaine Screen U Cannabinoids Screen Ethyl Alcohol SARS-CoV-2 (PCR) - Rads (name of study) Chest x-ray Radiology: Final report received, EMP read contemporaneously, See rad report Head CT Radiology: Final report received, EMP read contemporaneously, See rad report (No acute abnormality) PD MEDICAL DECISION MAKING - ED course Complexity details: reviewed results, re-evaluated patient, considered differential ED course: Patient appears to have had a likely intentional narcotic overdose today. She did improve slightly with Narcan. The bottles of the medication she overdosed on were not brought in by EMS. However her urine tox screen is positive for opiates and oxycodone. She was placed on a Narcan drip, nasopharyngeal airway was placed. O2 saturations kept around 92 to 94% as she does have a history of COPD. Unclear if she is oxygen dependent at home or not. As the patient will need to be maintained on Narcan drip and will likely be obtunded for some time, we will admit the patient for further care. Discussed the case with Dr. Kennedy, hospitalist who accepts. 1. Previous described pulmonary nodules not well depicted by x-ray 2. Stable consolidation right lung apex 3. Left basilar atelectasis and or infiltrate Departure - Departure Disposition: [facility] DC/Xfer Clinical Impression: Hypoxia Overdose Qualifiers: Encounter type: initial encounter Injury intent: undetermined intent Qualified Code(s): T50.904A - Poisoning by unspecified drugs, medicaments and biological substances, undetermined, initial encounter UTI (urinary tract infection) Qualifiers: Urinary tract infection type: acute cystitis Hematuria presence: without hematuria Qualified Code(s): N30.00 - Acute cystitis without hematuria Condition: Serious Discharge Date/Time: 07/15/21 15:00
[2021-07-15 12:36] LABS: MUDS CUTOFF CONCENTRATIONS CUTOFF CONC BELOW:
[2021-07-15 12:38] LABS: BASOPHILS # (AUTO) 0.1 10^3/uL (0.0-0.1); BASOPHILS % (AUTO) 0.3 %; EOSINOPHILS % (AUTO) 0.1 %; HCT - HEMATOCRIT 37.2 % (37.0-47.0); LYMPHOCYTES # (AUTO) 0.8 10^3/uL (1.5-3.5); LYMPHOCYTES % (AUTO) 5.1 %; MEAN CORPUSCULAR HEMOGLOBIN 31.4 pg (27.0-31.0); MEAN CORPUSCULAR HGB CONC 29.6 g/dL (32.0-36.0); MEAN CORPUSCULAR VOLUME 106.3 fL (81.0-99.0); MEAN PLATELET VOLUME 8.9 fL (7.9-10.8); MONOCYTES # (AUTO) 0.9 10^3/uL (0.0-1.0); MONOCYTES % (AUTO) 5.9 %; NEUTROPHILS # (AUTO) 13.4 10^3/uL (1.5-6.6); NEUTROPHILS % (AUTO) 88.1 %; PLT - PLATELET COUNT 224 10^3/uL (130-450); RED CELL DISTRIBUTION WIDTH 16.4 % (12.0-15.0); WHITE BLOOD COUNT 15.2 x10^3/uL (4.8-10.8)
[2021-07-15 12:47] LABS: BILIRUBIN,URINE NEGATIVE (NEGATIVE); GLUCOSE, URINE (UA) NEGATIVE (NEGATIVE); KETONES,URINE (UA) NEGATIVE (NEGATIVE); LEUKOCYTE ESTERASE, URINE TRACE (NEGATIVE); NITRITE,URINE POSITIVE (NEGATIVE); OCCULT BLOOD,URINE NEGATIVE (NEGATIVE); PROTEIN,URINE TRACE mg/dL (NEGATIVE); UROBILINOGEN,URINE 0.2 (NORMAL) E.U./dL (NORMAL)
[2021-07-15 12:57] LABS: CLARITY,URINE HAZY (CLEAR)
[2021-07-15 12:59] LABS: OPIATE SCREEN, URINE POSITIVE (NEGATIVE)
[2021-07-15 13:00] LABS: AMPHETAMINE SCREEN,URINE NEGATIVE (NEGATIVE); BARBITURATE SCREEN,UR NEGATIVE (NEGATIVE); BENZODIAZEPINES SCREEN, URINE NEGATIVE (NEGATIVE); COCAINE SCREEN URINE NEGATIVE (NEGATIVE); METHADONE SCREEN, URINE NEGATIVE (NEGATIVE); METHAMPHETAMINES SCREEN, URINE NEGATIVE (NEGATIVE); OXYCODONE SCREEN, URINE POSITIVE (NEGATIVE); PROPOXYPHENE SCREEN, URINE NEGATIVE (NEGATIVE); THC CANNABINOID SCREEN, URINE NEGATIVE (NEGATIVE); TRICYCLIC ANTIDEPRESSANT,URINE NEGATIVE (NEGATIVE)
[2021-07-15] MEDS ORDERED: NALOXONE 2 MG in SODIUM CHLORIDE 0.9% 495 ML IV STA (13:10)
[2021-07-15 13:13] LABS: BACTERIA,URINE Many /HPF (None Seen); RBC,URINE None Seen /HPF (0-5); SQUAMOUS EPITHELIAL CELL,UR RARE Squamous (<= Few); WBC CLUMPS,URINE PRESENT; WBC,URINE >25 /HPF (0-5)
[2021-07-15] MEDS ORDERED: cefTRIAXone 1 GM VIAL IVP STA (13:15)
--- NOTE | 2021-07-15 13:34 | XRAY Report ---
PROCEDURE: Chest 1 View X-Ray INDICATIONS: chest pain TECHNIQUE: One view of the chest was acquired. COMPARISON: 06/03/2021 FINDINGS: . Surgical changes and devices: Left sided Port-A-Cath tip in the upper SVC. Lungs and pleura: No pleural effusions or pneumothorax. Lungs are clear. Pulmonary nodules detecte d on the prior exam are not well depicted by radiography. Left basilar atelectasis and or infiltrate noted with blunting the left costophrenic angle. Mediastinum: Mediastinal contours appear normal. Heart size is normal. Atherosclerotic vascular ca lcification noted in the aortic arch. Bones and chest wall: No suspicious bony lesions. Overlying soft tissues appear unremarkable. IMPRESSION: 1. Previous described pulmonary nodules not well depicted by x-ray 2. Stable consolidation right lung apex 3. Left basilar atelectasis and or infiltrate Reviewed by: Nico Dias MD on 07/15/2021 12:33 PM AKDT Approved by: Nico Dias MD on 07/15/2021 12:33 PM AKDT Station ID: [id number]
--- NOTE | 2021-07-15 13:35 | CT Report ---
PROCEDURE: HEAD WO INDICATIONS: altered loc TECHNIQUE: Noncontrast 4.5 mm thick angled axial sections acquired from the foramen magnum to the vertex. For r adiation dose reduction, the following was used: automated exposure control, adjustment of mA and/or kV according to patient size. COMPARISON: None. FINDINGS: Image quality: Images are degraded by patient motion. Repeat scanning was performed with decreased mo tion. CSF spaces: Basal cisterns are patent. No extra-axial fluid collections. Ventricles are age-approp riate in size and shape. Brain: No midline shift. No acute intracranial hemorrhage or mass effect. No focal parenchymal edema or loss of garcia-white matter differentiation is seen. Skull and face: Calvarium and visualized facial bones are intact, without suspicious lesions. An end otracheal tube is partially visualized within the nasal cavity. Sinuses: Mild mucosal thickening is seen throughout the patient's paranasal sinuses. The mastoid air cells are clear. IMPRESSION: No acute intracranial abnormality given limitations related to patient motion. Mild diffuse paranasal sinus disease. Reviewed by: Madhu Israel MD on 07/15/2021 1:33 PM PDT Approved by: Madhu Israel MD on 07/15/2021 1:33 PM PDT Station ID: [id number]
[2021-07-15 13:46] LABS: CARBON DIOXIDE - CO2 31 mmol/L (21-32); CHLORIDE 95 mmol/L (101-111); POTASSIUM 4.9 mmol/L (3.5-5.0); SODIUM 137 mmol/L (135-145)
[2021-07-15 13:47] LABS: CALCIUM 8.3 mg/dL (8.5-10.3); GLUCOSE 159 mg/dL (70-100)
[2021-07-15 13:50] LABS: LIPASE 124 U/L (22-51)
[2021-07-15 13:53] LABS: ACETAMINOPHEN < 10 ug/mL (10-30); ALBUMIN 3.5 g/dL (3.2-5.5); ALT ALANINE AMINOTRANSFERASE < 10 IU/L (10-60); AST ASPARTATE AMINOTRANSFERASE 10 IU/L (10-42); BILIRUBIN,TOTAL 0.5 mg/dL (0.2-1.0); ETOH - ETHANOL < 5.0 mg/dL
[2021-07-15 13:54] LABS: BUN - BLOOD UREA NITROGEN 33 mg/dL (6-20); CREATININE 1.9 mg/dL (0.4-1.0); GFR - MDRD 26 (>89)
[2021-07-15 13:55] LABS: ALBUMIN/GLOBULIN RATIO 0.9 (1.0-2.2); ALKALINE PHOSPHATASE 103 IU/L (42-121); SALICYLATE < 4.0 mg/dL; TOTAL PROTEIN 7.4 g/dL (6.7-8.2)
[2021-07-15] MEDS ORDERED: SODIUM CHLORIDE FLUSH 0.9% 10 ML SYRINGE IVP PRN (13:55)
[2021-07-15] MEDS ORDERED: ONDANSETRON 4 MG/2 ML VIAL IVP PRN (13:55)
[2021-07-15] MEDS ORDERED: ONDANSETRON ODT 4 MG TABLET TL PRN (13:55)
[2021-07-15] MEDS ORDERED: ACETAMINOPHEN 325 MG TABLET PO PRN (13:55)
[2021-07-15] MEDS ORDERED: LACTATED RINGERS 1,000 ML IV SCH (14:00)
--- NOTE | 2021-07-15 14:05 | HISTORY & PHYSICAL EXAMINATION ---
Chief Complaint - Chief Complaint Chief Complaint: Found unresponsive. History of Present Illness - Admitted From Admitted From:: Home - History Obtained From Records Reviewed: [facility] History obtained from: ER Physician, EMR Exam Limitations: Patient is altered and unable to provide a history - History of Present Illness HPI Comment/Other: This is a 70-year-old female with a past medical history significant for COPD, metastatic non-small cell lung cancer, peripheral neuropathy, CKD stage III who presents today after being found unresponsive by her friend. History is obtained from the emergency department physician as the patient is unable to provide a history. She was reportedly found down at home by her friend today with empty pill bottles next to her. It is unclear what these pill bottles were as they did not accompany the patient. I spoke with palliative care, Harini Cuadra, who tells me that the patient recently received poor news regarding her lung cancer and that it will has been progressing despite therapy with nivolumab. She was scheduled to start sotorasib but this has been delayed due to cost. Harini Cuadra also informed me the patient was hypoxic on her evaluation a few days ago saturating 88%. The patient declined evaluation and Harini Cuadra increased her Lasix to 40 mg for a few days. She noted that her legs were more edematous than usual as well during that visit. I was later able to speak with her POA, Zoie, who informs me that the patient has been complaining of lower extremity edema over the past few days and has been a little more depressed than usual but did not have any suicidal thoughts or ideations. She last saw the patient yesterday evening and she was in her usual state of health. The patient did have an empty bottle of narcotics next her but she reports that they were barely any pills left so that he does not think that she overdosed on the opiates. Here in the emergency department, CT of the head showed no acute abnormalities. She was given Narcan with minimal improvement. A nasopharyngeal airway was placed and medicine was consulted for admission. I discussed goals of care with the patient's POA and she feels that the patient would be okay with mechanical ventilation as long as it was temporary. She would not want prolonged mechanical ventilation. Her POLST form states that she is a DNR with limited interventions but her POA feels that mechanical inhalation would be okay History - Past Medical History Cardiovascular: reports: Hypertension, High cholesterol, [place] Respiratory: reports: COPD, Emphysema, Other (Lung cancer, O2 at night) Neuro: reports: Peripheral neuropathy Endocrine/Autoimmune: reports: Type 2 diabetes, HyPOthyroidism GI: reports: Other : reports: Incontinence HEENT: reports: Chronic vision loss, Other Psych: reports: Depression, Anxiety Musculoskeletal: reports: Osteoarthritis, Fatigue Derm: reports: None MRSA Hx?: No - Past Surgical History General: reports: EGD Cardiovascular: reports: Coronary stent, Cardiac catheterization HEENT: reports: Tonsil/Adenoidectomy - Family & Social History Family History: Mother: , Sister: Alive and Well, Brother: Alive and Well, Alcoholism, Other family: Alive and Well Family History Comment/Other: Review of prior records revealed that her mother at the age of 94. Her brother from diabetes and alcoholism. Living Situation: With friend(s) Social History Notes: Harini Cuadra informed me that she lives with her friend and POAZoie. The patient smokes 2 packs a day - POLST Patient has POLST: Yes Meds/Allgy - Home Medications Home Medications: Ambulatory Orders Medication Instructions Recorded Confirmed Simvastatin 80 mg PO DAILY 04/27/15 07/15/21 Levothyroxine [Synthroid] 75 mcg PO DAILY 10/04/18 07/15/21 Zolpidem [Ambien] 10 mg ORAL QPM PRN 04/18/19 07/15/21 Albuterol Sulfate [Proair Hfa 2 puffs INH Q4HR PRN 05/30/19 07/15/21 Inhaler] polyethylene glycoL 3350 [Miralax] 8.5 - 17 mg PO DAILY PRN 01/09/20 07/15/21 Gabapentin 600 mg PO BID 02/06/20 07/15/21 Omeprazole 40 mg PO DAILY 07/23/20 07/15/21 Folic Acid 1 mg PO DAILY 10/08/20 07/15/21 Metoprolol Succinate [Toprol Xl] 25 mg PO DAILY 11/13/20 07/15/21 Furosemide [Lasix] 20 mg PO DAILY 11/26/20 07/15/21 Escitalopram [Lexapro] 10 mg PO DAILY #90 tablet 03/03/21 07/15/21 Ferrous Gluconate 324 mg PO DAILY 05/27/21 07/15/21 HYDROcod/ACETAM 5/325 [Dewart 5/325] 1 - 2 tab PO TID PRN 05/27/21 07/15/21 Sotorasib [Lumakras] 960 mg PO DAILY MDD not started yet 06/25/21 07/15/21 Ondansetron Odt [Zofran Odt] 4 mg TL Q6H PRN #30 tab 06/30/21 07/15/21 - Allergies Allergies/Adverse Reactions: Allergies Allergy/AdvReac Type Severity Reaction Status Date / Time No Known Drug Allergies Allergy Verified 12/10/20 10:26 Review of Systems - All Other Systems All Other Systems: reports: Other (Unable to obtain due to altered mental status.) Prior Level of Functionality: She is independent with ADL's. Exam - Vital Signs Reviewed Vital Signs: Yes Vital Signs: Vital Signs x48h Temp Pulse Resp BP Pulse Ox 07/15/21 13:48 86 20 101/52 L 99 07/15/21 12:30 92 22 103/51 L 96 07/15/21 12:10 36.7 C 11 L 95/54 L - Physical Exam General Appearance: positive: Lethargic (Quite lethargic. Will occasionally open her eyes but will quickly doze off again) Eyes Bilateral: positive: Conjunctivae nml, Other (Pupils constricted bilaterally.) ENT: positive: Other (Nasopharyngeal airway in place in the right naris.) Neck: positive: Nml inspection Respiratory: positive: Rhonchi. negative: Wheezes, Rales Cardiovascular: positive: Regular rate & rhythm. negative: Tachycardia Abdomen: positive: Non-tender, No distention, Tenderness Skin: positive: Warm, Dry Extremities: positive: Pedal edema (+1 edema in bilateral lower extremities.) Neurologic/Psychiatric: positive: Other (Neuro exam is limited due to altered mental status.) Conclusion/Plan - Problem List (1) Encephalopathy Conclusion/Plan: The concern is that this may be due to an opiate overdose given the empty pill bottles all though it is not clear. She did appear to respond to Narcan in the emergency department. CT head showed no acute abnormalities. We will check an ABG today for hypercapnia given her underlying COPD. We will place in the ICU on a Narcan drip. If her CO2 is elevated we will place her on BiPAP. She has a POLST form which states she is a DNR and I spoke with palliative care, Harini Cuadra, who states the patient would not want anything aggressive based off of prior discussions. We will avoid all sedatives. (2) Acute respiratory failure with hypoxia Conclusion/Plan: She is hypoxic requiring 6 L of oxygen via nasal cannula. Suspect this is likely related to her encephalopathy. Harini Cuadra did inform me that she was saturating 88% on her evaluation a few days ago she was quite edematous with concern for heart failure but the patient declined evaluation. Her x-ray today continues to reveal chronic changes without evidence of obvious edema or pneumonia. We will check an ABG and will consider BiPAP if she is hypercapnic or still hypoxic. We will trial dose of a lasix given her elevated BNP. We unfortunately do not have echocardiogram available. (3) Overdose Conclusion/Plan: The concern is for an overdose and is not clear if this is intentional or unintentional. Her urine toxicology is positive for opiates. We are managing her encephalopathy as mentioned above. As she becomes more alert, we will need to obtain further history. Qualifiers: Encounter type: initial encounter Injury intent: undetermined intent Qualified Code(s): T50.904A - Poisoning by unspecified drugs, medicaments and biological substances, undetermined, initial encounter (4) Elevated troponin Conclusion/Plan: Her troponin is elevated in the 50s. Her EKG does not suggest ischemia. I am u nable to obtain meaningful history from her given her encephalopathy. I suspect this is likely demand ischemia but we will trend her troponins and monitor on telemetry. (5) UTI (urinary tract infection) Conclusion/Plan: Concern for potential UTI given her abnormal urinalysis and elevated white blood cell count. She is too altered to provide a history so we will treat her empirically. Qualifiers: Urinary tract infection type: acute cystitis Hematuria presence: without hematuria Qualified Code(s): N30.00 - Acute cystitis without hematuria (6) Metastatic non-small cell lung cancer Conclusion/Plan: She has known metastatic non-small cell lung cancer and unfortunately has been progressed despite therapy. She had difficulty obtaining the money for the co- pay of a new therapy and this has been stressful for her per palliative care. She will continue outpatient follow-up once discharged. (7) Chronic kidney disease Conclusion/Plan: She has chronic kidney disease with a baseline creatinine of around 1.9. Her renal function is currently at baseline. We will try a dose of Lasix given her hypoxia and elevated BNP. We will monitor her renal function and she is being diuresed. Qualifiers: Chronic kidney disease stage: stage 3 (moderate) - Lab Results Lab results reviewed: Yes Fish Bones: 07/15/21 12:30 07/15/21 12:30 - Diagnostic Imaging Results Diagnostic Imaging Results: positive: Final report reviewed Core Measures - Anticipated LOS I expect patient to be DC'd or transferred within 96 hours.: Yes - Issues Hospital Issues and Management Plan: 70-year-old female with metastatic non-small cell lung cancer which has progressed presents after being found unresponsive by her friend. Concerns for overdose whether unintentional or intentional. She will be admitted to the ICU for further management. - DVT/VTE - Prophylaxis VTE/DVT Device ordered at admit?: Yes VTE/DVT Prophylaxis med ordered at admit?: Yes
[2021-07-15 14:45] LABS: ABG BASE EXCESS 1.8 mmol/L (-2.0-3.0); ABG HCO3 30.7 mmol/L (22.0-26.0); ABG PH 7.25 (7.35-7.45); ABG TCO2 32.9 MMOL/L (21.0-29.0)
[2021-07-15 14:46] LABS: ALLEN TEST POSITIVE
[2021-07-15 15:09] LABS: ABG OXYGEN SATURATION 80 % (94-98); ABG PCO2 72 mmHg (34-45); ABG PO2 47 mmHg (80-100)
--- NOTE | 2021-07-15 15:20 | PHARMACY PROGRESS NOTE ---
- Best Possible Medication History Admit Date and Time: 07/15/21 8256 Processed by: Pharmacy Medication History completed: Yes Patient Interview: Pt unable to participate Secondary Source(s): Physician records, Insurance records, Previous admit rec ords Patient has been prescribed a new antineoplastic agent, sotorasib, by her oncologist (Dr Chase); however, per recent provider notes, the patient is attempting to apply for copay assistance before starting the regimen due to the high cost of the medication. In the meantime, she continues on nivolumab infusions at the [facility] [place] As the person ultimately responsible for medication therapy, providers are able to order a medication from an existing home medication list in [facility] via the "Reconcile Routine" prior to Confirmation of that medication by home support worker. Such practice is discouraged except when the physician, in their clinical judgment, deems that a medical need exists for a medication without regard to previous use.
[2021-07-15] MEDS ORDERED: ASPIRIN CHEW 81 MG TABLET PO STA (16:26)
[2021-07-15] MEDS: NALOXONE 2 MG in SODIUM CHLORIDE 0.9% 495 ML IV SCH ×2 (17:00→20:21)
[2021-07-15] MEDS: SODIUM CHLORIDE FLUSH 0.9% 10 ML SYRINGE IVP SCH (17:31)
[2021-07-15 17:58] LABS: ABG HCO3 33.6 mmol/L (22.0-26.0); ABG PH 7.35 (7.35-7.45); ABG PO2 68 mmHg (80-100)
[2021-07-15 17:59] LABS: ABG OXYGEN SATURATION 92 % (94-98); ALLEN TEST POSITIVE
[2021-07-15 18:01] LABS: ABG PCO2 61 mmHg (34-45)
[2021-07-15] MEDS: HEPARIN 5,000 UNIT/ML VIAL SUBQ SCH (20:14)
[2021-07-15] MEDS ORDERED: ASPIRIN CHEW 81 MG TABLET ONE (20:19)
[2021-07-16] MEDS: SODIUM CHLORIDE FLUSH 0.9% 10 ML SYRINGE IVP SCH ×5 (00:34→23:10)
[2021-07-16] MEDS: NALOXONE 2 MG in SODIUM CHLORIDE 0.9% 495 ML IV SCH ×2 (01:28→08:43)
[2021-07-16 04:15] LABS: BASOPHILS % (AUTO) 0.3 %; EOSINOPHILS % (AUTO) 0.5 %; LYMPHOCYTES % (AUTO) 11.9 %; MEAN CORPUSCULAR HEMOGLOBIN 30.9 pg (27.0-31.0); MEAN CORPUSCULAR VOLUME 106.5 fL (81.0-99.0); MEAN PLATELET VOLUME 9.2 fL (7.9-10.8); MONOCYTES # (AUTO) 0.5 10^3/uL (0.0-1.0); MONOCYTES % (AUTO) 6.5 %; NEUTROPHILS # (AUTO) 6.4 10^3/uL (1.5-6.6); NEUTROPHILS % (AUTO) 80.2 %; PLT - PLATELET COUNT 180 10^3/uL (130-450); RED BLOOD COUNT 2.91 10^6/uL (4.20-5.40); RED CELL DISTRIBUTION WIDTH 16.2 % (12.0-15.0)
[2021-07-16 04:16] LABS: CALCIUM, IONIZED 1.01 mmol/L (1.15-1.33); VBG PH 7.354 (7.31-7.41)
[2021-07-16 04:28] LABS: CALCIUM 7.9 mg/dL (8.5-10.3); CREATININE 1.5 mg/dL (0.4-1.0); MAGNESIUM 2.1 mg/dL (1.7-2.8); PHOSPHORUS 6.3 mg/dL (2.5-4.6); POTASSIUM 4.5 mmol/L (3.5-5.0)
[2021-07-16] MEDS ORDERED: CALCIUM GLUCONATE IN NS 0.9% 1,000 MG/50 ML BAG IV ONE (04:36)
--- NOTE | 2021-07-16 08:10 | PROVIDER PROGRESS NOTE ---
Subjective - Prog Note Date Prog Note Date: 07/16/21 - Subjective Subjective: She feels much better today. She cannot recall the events leading up to her hospitalization. She denies taking her medications inappropriately and actually believes that she may have taken less than usual of her narcotics. She denies any suicidal thoughts or ideations. She does feel a little short of breath. She still has lower extremity edema but feels this is much improved compared to a few days ago. She does complain of dysuria. Current Medications - Current Medications Current Medications: Active Medications Acetaminophen (Acetaminophen 325 Mg Tablet) 650 mg PO Q4HR PRN PRN Reason: Pain 1 to 4, or Fever Escitalopram Oxalate (Escitalopram 10 Mg Tablet) 10 mg PO DAILY [facility] Last Admin: 07/16/21 12:06 Dose: 10 mg Ferrous Gluconate (Ferrous Gluconate 324 Mg Tablet) 324 mg PO QDLUNCH [facility] Furosemide (Furosemide 40 Mg/4 Ml Vial) 40 mg IVP DAILY [facility] Last Admin: 07/16/21 09:51 Dose: 40 mg Gabapentin (Gabapentin 300 Mg Capsule) 300 mg PO BID [facility] Last Admin: 07/16/21 12:06 Dose: 300 mg Heparin Sodium (Porcine) (Heparin 5,000 Unit/Ml Vial) 5,000 unit SUBQ BID [facility] Last Admin: 07/16/21 08:22 Dose: 5,000 unit Ceftriaxone Sodium 1 gm/ (Sodium Chloride) 100 mls @ 200 mls/hr IV DAILY [facility] Last Infusion: 07/16/21 10:04 Dose: Infused Levothyroxine Sodium (Levothyroxine 75 Mcg Tablet) 75 mcg PO QDAC [facility] Metoprolol Succinate (Metoprolol Succinate 25 Mg Tablet) 25 mg PO DAILY [facility] Mineral Oil (Min Oil/Dimethicon/Coconut Oil 92 Gm Tube) 1 applic TOP PRN PRN PRN Reason: Skin Care Nicotine (Nicotine 21 Mg Patch) 1 patch TOP DAILY [facility] Last Admin: 07/16/21 09:48 Dose: 1 patch Ondansetron HCl (Ondansetron Odt 4 Mg Tablet) 4 mg TL Q6HR PRN PRN Reason: Nausea / Vomiting Ondansetron HCl (Ondansetron 4 Mg/2 Ml Vial) 4 mg IVP Q6HR PRN PRN Reason: Nausea / Vomiting Pantoprazole Sodium (Pantoprazole 40 Mg Tablet) 40 mg PO QDAC [facility] Polyethylene Glycol (Polyethylene Glycol 3350 17 Gm Packet) 17 gm PO DAILY [facility] Last Admin: 07/16/21 08:42 Dose: 17 gm Sodium Chloride (Sodium Chloride Flush 0.9% 10 Ml Syringe) 10 ml IVP 0100,0900,1700 [facility] Last Admin: 07/16/21 08:43 Dose: 10 ml Sodium Chloride (Sodium Chloride Flush 0.9% 10 Ml Syringe) 10 ml IVP PRN PRN PRN Reason: NEEDED PER PROVIDER ORDERS Last Admin: 07/16/21 05:41 Dose: 10 ml Simvastatin 80 mg PO DAILY 04/27/15 Levothyroxine [Synthroid] 75 mcg PO DAILY 10/04/18 Zolpidem [Ambien] 10 mg ORAL QPM PRN 04/18/19 Albuterol Sulfate [Proair Hfa Inhaler] 2 puffs INH Q4HR PRN 05/30/19 polyethylene glycoL 3350 [Miralax] 8.5 - 17 mg PO DAILY PRN 01/09/20 Gabapentin 600 mg PO BID 02/06/20 Omeprazole 40 mg PO DAILY 07/23/20 Folic Acid 1 mg PO DAILY 10/08/20 Metoprolol Succinate [Toprol Xl] 25 mg PO DAILY 11/13/20 Furosemide [Lasix] 20 mg PO DAILY 11/26/20 Ferrous Gluconate 324 mg PO DAILY 05/27/21 HYDROcod/ACETAM 5/325 [[place] 5/325] 1 - 2 tab PO TID PRN 05/27/21 Sotorasib [Lumakras] 960 mg PO DAILY MDD not started yet 06/25/21 Objective - Vital Signs/Intake & Output Reviewed Vital Signs: Yes Vital Signs: Vital Signs Pulse Pulse Resp BP Pulse Ox 07/16/21 07:59 96 20 125/91 H 92 07/16/21 07:00 87 21 106/58 L 07/16/21 06:05 86 21 95/57 L 96 07/16/21 05:00 84 17 115/59 L 94 07/16/21 04:45 89 Intake & Output: Intake & Output 07/13/21 07/14/21 07/15/21 07/16/21 23:59 23:59 23:59 23:59 Intake Total 9129.643 3805.333 Output Total 0 1055 Balance 6495.503 7071.333 - Objective General Appearance: positive: No acute distress, Alert Eyes Bilateral: positive: Normal inspection, Conjunctivae nml ENT: positive: ENT inspection nml, Other (Nasal cannula in place.) Neck: positive: Nml inspection Respiratory: positive: Rales, Rhonchi Cardiovascular: negative: Irregularly irregular, Tachycardia, Systolic murmur Skin: positive: Warm, Dry Extremities: positive: Pedal edema (+1 edema in bilateral lower extremities.) Neurologic/Psychiatric: negative: Disoriented to person, Disoriented to place - Lab Results Fish Bones: 07/16/21 04:08 07/16/21 04:08 Other Labs: Lab Results x24hrs 07/16/21 07/16/21 07/16/21 Range/Units 04:08 04:08 04:08 WBC (4.8-10.8) x10^3/uL RBC (4.20-5.40) 10^6/uL Hgb (12.0-16.0) g/dL Hct (37.0-47.0) % MCV (81.0-99.0) fL MCH (27.0-31.0) pg MCHC (32.0-36.0) g/dL RDW (12.0-15.0) % Plt Count (130-450) 10^3/uL MPV (7.9-10.8) fL Neut # (Auto) (1.5-6.6) 10^3/uL Lymph # (Auto) (1.5-3.5) 10^3/uL [place] # (Auto) (0.0-1.0) 10^3/uL Eos # (Auto) (0.0-0.7) 10^3/uL Baso # (Auto) (0.0-0.1) 10^3/uL Absolute Nucleated RBC x10^3/uL Nucleated RBC % /100WBC Bld Gas Analysis Time Sample Site ABG pH (7.35-7.45) ABG pCO2 (34-45) mmHg ABG pO2 (80-100) mmHg ABG HCO3 (22.0-26.0) mmol/L ABG Total CO2 (21.0-29.0) MMOL/L ABG O2 Saturation (94-98) % ABG Base Excess (-2.0-3.0) mmol/L Hema Test VBG pH 7.354 (7.31-7.41) Ionized Calcium 1.01 L (1.15-1.33) mmol/L O2 Delivery Device O2 Liters/Min LPM FiO2 EPAP cmH2O IPAP cmH2O Sodium (135-145) mmol/L Potassium (3.5-5.0) mmol/L Chloride (101-111) mmol/L Carbon Dioxide (21-32) mmol/L Anion Gap (6-13) BUN (6-20) mg/dL Creatinine (0.4-1.0) mg/dL Estimated GFR (MDRD) (>89) Glucose (70-100) mg/dL Lactic Acid (0.5-2.2) mmol/L Calcium (8.5-10.3) mg/dL Phosphorus (2.5-4.6) mg/dL Magnesium (1.7-2.8) mg/dL Total Bilirubin (0.2-1.0) mg/dL AST (10-42) IU/L ALT (10-60) IU/L Alkaline Phosphatase (42-121) IU/L Troponin I High Sens 149.4 H* (2.3-14.8) ng/L B-Natriuretic Peptide 758 H (5-100) pg/mL Total Protein (6.7-8.2) g/dL Albumin (3.2-5.5) g/dL Globulin (2.1-4.2) g/dL Albumin/Globulin Ratio (1.0-2.2) Lipase (22-51) U/L TSH (0.34-5.60) uIU/mL Urine Color Urine Clarity (CLEAR) Urine pH (5.0-7.5) PH Ur Specific [place] (1.002-1.030) Urine Protein (NEGATIVE) mg/dL Urine Glucose (UA) (NEGATIVE) mg/dL Urine Ketones (NEGATIVE) mg/dL Urine Occult Blood (NEGATIVE) Urine Nitrite (NEGATIVE) Urine Bilirubin (NEGATIVE) Urine Urobilinogen (NORMAL) E.U./dL Ur Leukocyte Esterase (NEGATIVE) Urine RBC (0-5) /HPF Urine WBC (0-5) /HPF Urine WBC Clumps Ur Squamous Epith Cells (<= Few) Urine Bacteria (None Seen) /HPF Ur Microscopic Review Urine Culture Comments Nasal Screen MRSA (PCR) (NEGATIVE) Salicylates mg/dL Urine Opiates Screen (NEGATIVE) Ur Oxycodone Screen (NEGATIVE) Urine Methadone Screen (NEGATIVE) Ur Propoxyphene Screen (NEGATIVE) Acetaminophen (10-30) ug/mL Ur Barbiturates Screen (NEGATIVE) Ur Tricyclics Screen (NEGATIVE) Ur Phencyclidine Scrn (NEGATIVE) Ur Amphetamine Screen (NEGATIVE) U Methamphetamines Scrn (NEGATIVE) U Benzodiazepines Scrn (NEGATIVE) Urine Cocaine Screen (NEGATIVE) U Cannabinoids Screen (NEGATIVE) Ethyl Alcohol mg/dL SARS-CoV-2 (PCR) 07/16/21 07/16/21 07/15/21 Range/Units 04:08 04:08 20:59 WBC 8.0 (4.8-10.8) x10^3/uL RBC 2.91 L (4.20-5.40) 10^6/uL Hgb 9.0 L (12.0-16.0) g/dL Hct 31.0 L (37.0-47.0) % MCV 106.5 H (81.0-99.0) fL MCH 30.9 (27.0-31.0) pg MCHC 29.0 L (32.0-36.0) g/dL RDW 16.2 H (12.0-15.0) % Plt Count 180 (130-450) 10^3/uL MPV 9.2 (7.9-10.8) fL Neut # (Auto) 6.4 (1.5-6.6) 10^3/uL Lymph # (Auto) 1.0 L (1.5-3.5) 10^3/uL [place] # (Auto) 0.5 (0.0-1.0) 10^3/uL Eos # (Auto) 0.0 (0.0-0.7) 10^3/uL Baso # (Auto) 0.0 (0.0-0.1) 10^3/uL Absolute Nucleated RBC 0.00 x10^3/uL Nucleated RBC % 0.0 /100WBC Bld Gas Analysis Time Sample Site ABG pH (7.35-7.45) ABG pCO2 (34-45) mmHg ABG pO2 (80-100) mmHg ABG HCO3 (22.0-26.0) mmol/L ABG Total CO2 (21.0-29.0) MMOL/L ABG O2 Saturation (94-98) % ABG Base Excess (-2.0-3.0) mmol/L Hema Test VBG pH (7.31-7.41) Ionized Calcium (1.15-1.33) mmol/L O2 Delivery Device O2 Liters/Min LPM FiO2 EPAP cmH2O IPAP cmH2O Sodium 137 (135-145) mmol/L Potassium 4.5 (3.5-5.0) mmol/L Chloride 100 L (101-111) mmol/L Carbon Dioxide 28 (21-32) mmol/L Anion Gap 9.0 (6-13) BUN 31 H (6-20) mg/dL Creatinine 1.5 H (0.4-1.0) mg/dL Estimated GFR (MDRD) 35 L (>89) Glucose 116 H (70-100) mg/dL Lactic Acid (0.5-2.2) mmol/L Calcium 7.9 L (8.5-10.3) mg/dL Phosphorus 6.3 H (2.5-4.6) mg/dL Magnesium 2.1 (1.7-2.8) mg/dL Total Bilirubin (0.2-1.0) mg/dL AST (10-42) IU/L ALT (10-60) IU/L Alkaline Phosphatase (42-121) IU/L Troponin I High Sens 257.4 H* (2.3-14.8) ng/L B-Natriuretic Peptide (5-100) pg/mL Total Protein (6.7-8.2) g/dL Albumin (3.2-5.5) g/dL Globulin (2.1-4.2) g/dL Albumin/Globulin Ratio (1.0-2.2) Lipase (22-51) U/L TSH (0.34-5.60) uIU/mL Urine Color Urine Clarity (CLEAR) Urine pH (5.0-7.5) PH Ur Specific [place] (1.002-1.030) Urine Protein (NEGATIVE) mg/dL Urine Glucose (UA) (NEGATIVE) mg/dL Urine Ketones (NEGATIVE) mg/dL Urine Occult Blood (NEGATIVE) Urine Nitrite (NEGATIVE) Urine Bilirubin (NEGATIVE) Urine Urobilinogen (NORMAL) E.U./dL Ur Leukocyte Esterase (NEGATIVE) Urine RBC (0-5) /HPF Urine WBC (0-5) /HPF Urine WBC Clumps Ur Squamous Epith Cells (<= Few) Urine Bacteria (None Seen) /HPF Ur Microscopic Review Urine Culture Comments Nasal Screen MRSA (PCR) (NEGATIVE) Salicylates mg/dL Urine Opiates Screen (NEGATIVE) Ur Oxycodone Screen (NEGATIVE) Urine Methadone Screen (NEGATIVE) Ur Propoxyphene Screen (NEGATIVE) Acetaminophen (10-30) ug/mL Ur Barbiturates Screen (NEGATIVE) Ur Tricyclics Screen (NEGATIVE) Ur Phencyclidine Scrn (NEGATIVE) Ur Amphetamine Screen (NEGATIVE) U Methamphetamines Scrn (NEGATIVE) U Benzodiazepines Scrn (NEGATIVE) Urine Cocaine Screen (NEGATIVE) U Cannabinoids Screen (NEGATIVE) Ethyl Alcohol mg/dL SARS-CoV-2 (PCR) 07/15/21 07/15/21 07/15/21 Range/Units 17:45 17:00 15:10 WBC (4.8-10.8) x10^3/uL RBC (4.20-5.40) 10^6/uL Hgb (12.0-16.0) g/dL Hct (37.0-47.0) % MCV (81.0-99.0) fL MCH (27.0-31.0) pg MCHC (32.0-36.0) g/dL RDW (12.0-15.0) % Plt Count (130-450) 10^3/uL MPV (7.9-10.8) fL Neut # (Auto) (1.5-6.6) 10^3/uL Lymph # (Auto) (1.5-3.5) 10^3/uL [place] # (Auto) (0.0-1.0) 10^3/uL Eos # (Auto) (0.0-0.7) 10^3/uL Baso # (Auto) (0.0-0.1) 10^3/uL Absolute Nucleated RBC x10^3/uL Nucleated RBC % /100WBC Bld Gas Analysis Time 1758 Sample Site LEFT RADIAL ABG pH 7.35 (7.35-7.45) ABG pCO2 61 H* (34-45) mmHg ABG pO2 68 L (80-100) mmHg ABG HCO3 33.6 H (22.0-26.0) mmol/L ABG Total CO2 35.0 H (21.0-29.0) MMOL/L ABG O2 Saturation 92 L (94-98) % ABG Base Excess 8.0 H (-2.0-3.0) mmol/L Hema Test POSITIVE VBG pH (7.31-7.41) Ionized Calcium (1.15-1.33) mmol/L O2 Delivery Device BiPAP O2 Liters/Min LPM FiO2 40.00 EPAP 5 cmH2O IPAP 12 cmH2O Sodium (135-145) mmol/L Potassium (3.5-5.0) mmol/L Chloride (101-111) mmol/L Carbon Dioxide (21-32) mmol/L Anion Gap (6-13) BUN (6-20) mg/dL Creatinine (0.4-1.0) mg/dL Estimated GFR (MDRD) (>89) Glucose (70-100) mg/dL Lactic Acid (0.5-2.2) mmol/L Calcium (8.5-10.3) mg/dL Phosphorus (2.5-4.6) mg/dL Magnesium (1.7-2.8) mg/dL Total Bilirubin (0.2-1.0) mg/dL AST (10-42) IU/L ALT (10-60) IU/L Alkaline Phosphatase (42-121) IU/L Troponin I High Sens 197.4 H* (2.3-14.8) ng/L B-Natriuretic Peptide (5-100) pg/mL Total Protein (6.7-8.2) g/dL Albumin (3.2-5.5) g/dL Globulin (2.1-4.2) g/dL Albumin/Globulin Ratio (1.0-2.2) Lipase (22-51) U/L TSH (0.34-5.60) uIU/mL Urine Color Urine Clarity (CLEAR) Urine pH (5.0-7.5) PH Ur Specific [place] (1.002-1.030) Urine Protein (NEGATIVE) mg/dL Urine Glucose (UA) (NEGATIVE) mg/dL Urine Ketones (NEGATIVE) mg/dL Urine Occult Blood (NEGATIVE) Urine Nitrite (NEGATIVE) Urine Bilirubin (NEGATIVE) Urine Urobilinogen (NORMAL) E.U./dL Ur Leukocyte Esterase (NEGATIVE) Urine RBC (0-5) /HPF Urine WBC (0-5) /HPF Urine WBC Clumps Ur Squamous Epith Cells (<= Few) Urine Bacteria (None Seen) /HPF Ur Microscopic Review Urine Culture Comments Nasal Screen MRSA (PCR) NEGATIVE (NEGATIVE) Salicylates mg/dL Urine Opiates Screen (NEGATIVE) Ur Oxycodone Screen (NEGATIVE) Urine Methadone Screen (NEGATIVE) Ur Propoxyphene Screen (NEGATIVE) Acetaminophen (10-30) ug/mL Ur Barbiturates Screen (NEGATIVE) Ur Tricyclics Screen (NEGATIVE) Ur Phencyclidine Scrn (NEGATIVE) Ur Amphetamine Screen (NEGATIVE) U Methamphetamines Scrn (NEGATIVE) U Benzodiazepines Scrn (NEGATIVE) Urine Cocaine Screen (NEGATIVE) U Cannabinoids Screen (NEGATIVE) Ethyl Alcohol mg/dL SARS-CoV-2 (PCR) 07/15/21 07/15/21 07/15/21 Range/Units 15:05 14:37 13:37 WBC (4.8-10.8) x10^3/uL RBC (4.20-5.40) 10^6/uL Hgb (12.0-16.0) g/dL Hct (37.0-47.0) % MCV (81.0-99.0) fL MCH (27.0-31.0) pg MCHC (32.0-36.0) g/dL RDW (12.0-15.0) % Plt Count (130-450) 10^3/uL MPV (7.9-10.8) fL Neut # (Auto) (1.5-6.6) 10^3/uL Lymph # (Auto) (1.5-3.5) 10^3/uL [place] # (Auto) (0.0-1.0) 10^3/uL Eos # (Auto) (0.0-0.7) 10^3/uL Baso # (Auto) (0.0-0.1) 10^3/uL Absolute Nucleated RBC x10^3/uL Nucleated RBC % /100WBC Bld Gas Analysis Time 1441 Sample Site LEFT RADIAL ABG pH 7.25 L (7.35-7.45) ABG pCO2 72 H* (34-45) mmHg ABG pO2 47 L* (80-100) mmHg ABG HCO3 30.7 H (22.0-26.0) mmol/L ABG Total CO2 32.9 H (21.0-29.0) MMOL/L ABG O2 Saturation 80 L* (94-98) % ABG Base Excess 1.8 (-2.0-3.0) mmol/L Hema Test POSITIVE VBG pH (7.31-7.41) Ionized Calcium (1.15-1.33) mmol/L O2 Delivery Device OXYMASK O2 Liters/Min 4.00 LPM FiO2 EPAP cmH2O IPAP cmH2O Sodium (135-145) mmol/L Potassium (3.5-5.0) mmol/L Chloride (101-111) mmol/L Carbon Dioxide (21-32) mmol/L Anion Gap (6-13) BUN (6-20) mg/dL Creatinine (0.4-1.0) mg/dL Estimated GFR (MDRD) (>89) Glucose (70-100) mg/dL Lactic Acid 0.9 (0.5-2.2) mmol/L Calcium (8.5-10.3) mg/dL Phosphorus (2.5-4.6) mg/dL Magnesium (1.7-2.8) mg/dL Total Bilirubin (0.2-1.0) mg/dL AST (10-42) IU/L ALT (10-60) IU/L Alkaline Phosphatase (42-121) IU/L Troponin I High Sens 162.1 H* (2.3-14.8) ng/L B-Natriuretic Peptide (5-100) pg/mL Total Protein (6.7-8.2) g/dL Albumin (3.2-5.5) g/dL Globulin (2.1-4.2) g/dL Albumin/Globulin Ratio (1.0-2.2) Lipase (22-51) U/L TSH (0.34-5.60) uIU/mL Urine Color Urine Clarity (CLEAR) Urine pH (5.0-7.5) PH Ur Specific [place] (1.002-1.030) Urine Protein (NEGATIVE) mg/dL Urine Glucose (UA) (NEGATIVE) mg/dL Urine Ketones (NEGATIVE) mg/dL Urine Occult Blood (NEGATIVE) Urine Nitrite (NEGATIVE) Urine Bilirubin (NEGATIVE) Urine Urobilinogen (NORMAL) E.U./dL Ur Leukocyte Esterase (NEGATIVE) Urine RBC (0-5) /HPF Urine WBC (0-5) /HPF Urine WBC Clumps Ur Squamous Epith Cells (<= Few) Urine Bacteria (None Seen) /HPF Ur Microscopic Review Urine Culture Comments Nasal Screen MRSA (PCR) (NEGATIVE) Salicylates mg/dL Urine Opiates Screen (NEGATIVE) Ur Oxycodone Screen (NEGATIVE) Urine Methadone Screen (NEGATIVE) Ur Propoxyphene Screen (NEGATIVE) Acetaminophen (10-30) ug/mL Ur Barbiturates Screen (NEGATIVE) Ur Tricyclics Screen (NEGATIVE) Ur Phencyclidine Scrn (NEGATIVE) Ur Amphetamine Screen (NEGATIVE) U Methamphetamines Scrn (NEGATIVE) U Benzodiazepines Scrn (NEGATIVE) Urine Cocaine Screen (NEGATIVE) U Cannabinoids Screen (NEGATIVE) Ethyl Alcohol mg/dL SARS-CoV-2 (PCR) 07/15/21 07/15/21 07/15/21 Range/Units 12:30 12:30 12:30 WBC (4.8-10.8) x10^3/uL RBC (4.20-5.40) 10^6/uL Hgb (12.0-16.0) g/dL Hct (37.0-47.0) % MCV (81.0-99.0) fL MCH (27.0-31.0) pg MCHC (32.0-36.0) g/dL RDW (12.0-15.0) % Plt Count (130-450) 10^3/uL MPV (7.9-10.8) fL Neut # (Auto) (1.5-6.6) 10^3/uL Lymph # (Auto) (1.5-3.5) 10^3/uL [place] # (Auto) (0.0-1.0) 10^3/uL Eos # (Auto) (0.0-0.7) 10^3/uL Baso # (Auto) (0.0-0.1) 10^3/uL Absolute Nucleated RBC x10^3/uL Nucleated RBC % /100WBC Bld Gas Analysis Time Sample Site ABG pH (7.35-7.45) ABG pCO2 (34-45) mmHg ABG pO2 (80-100) mmHg ABG HCO3 (22.0-26.0) mmol/L ABG Total CO2 (21.0-29.0) MMOL/L ABG O2 Saturation (94-98) % ABG Base Excess (-2.0-3.0) mmol/L Hema Test VBG pH (7.31-7.41) Ionized Calcium (1.15-1.33) mmol/L O2 Delivery Device O2 Liters/Min LPM FiO2 EPAP cmH2O IPAP cmH2O Sodium (135-145) mmol/L Potassium (3.5-5.0) mmol/L Chloride (101-111) mmol/L Carbon Dioxide (21-32) mmol/L Anion Gap (6-13) BUN (6-20) mg/dL Creatinine (0.4-1.0) mg/dL Estimated GFR (MDRD) (>89) Glucose (70-100) mg/dL Lactic Acid (0.5-2.2) mmol/L Calcium (8.5-10.3) mg/dL Phosphorus (2.5-4.6) mg/dL Magnesium (1.7-2.8) mg/dL Total Bilirubin (0.2-1.0) mg/dL AST (10-42) IU/L ALT (10-60) IU/L Alkaline Phosphatase (42-121) IU/L Troponin I High Sens (2.3-14.8) ng/L B-Natriuretic Peptide 741 H (5-100) pg/mL Total Protein (6.7-8.2) g/dL Albumin (3.2-5.5) g/dL Globulin (2.1-4.2) g/dL Albumin/Globulin Ratio (1.0-2.2) Lipase (22-51) U/L TSH (0.34-5.60) uIU/mL Urine Color YELLOW Urine Clarity HAZY (CLEAR) Urine pH 5.0 (5.0-7.5) PH Ur Specific [place] 1.020 (1.002-1.030) Urine Protein TRACE (NEGATIVE) mg/dL Urine Glucose (UA) NEGATIVE (NEGATIVE) mg/dL Urine Ketones NEGATIVE (NEGATIVE) mg/dL Urine Occult Blood NEGATIVE (NEGATIVE) Urine Nitrite POSITIVE H (NEGATIVE) Urine Bilirubin NEGATIVE (NEGATIVE) Urine Urobilinogen 0.2 (NORMAL) (NORMAL) E.U./dL Ur Leukocyte Esterase TRACE H (NEGATIVE) Urine RBC None Seen (0-5) /HPF Urine WBC >25 H (0-5) /HPF Urine WBC Clumps PRESENT Ur Squamous Epith Cells RARE Squamous (<= Few) Urine Bacteria Many H (None Seen) /HPF Ur Microscopic Review INDICATED Urine Culture Comments INDICATED Nasal Screen MRSA (PCR) (NEGATIVE) Salicylates mg/dL Urine Opiates Screen POSITIVE H (NEGATIVE) Ur Oxycodone Screen POSITIVE H (NEGATIVE) Urine Methadone Screen NEGATIVE (NEGATIVE) Ur Propoxyphene Screen NEGATIVE (NEGATIVE) Acetaminophen (10-30) ug/mL Ur Barbiturates Screen NEGATIVE (NEGATIVE) Ur Tricyclics Screen NEGATIVE (NEGATIVE) Ur Phencyclidine Scrn NEGATIVE (NEGATIVE) Ur Amphetamine Screen NEGATIVE (NEGATIVE) U Methamphetamines Scrn NEGATIVE (NEGATIVE) U Benzodiazepines Scrn NEGATIVE (NEGATIVE) Urine Cocaine Screen NEGATIVE (NEGATIVE) U Cannabinoids Screen NEGATIVE (NEGATIVE) Ethyl Alcohol mg/dL SARS-CoV-2 (PCR) NOT DETECTED 07/15/21 07/15/21 07/15/21 Range/Units 12:30 12:30 12:30 WBC (4.8-10.8) x10^3/uL RBC (4.20-5.40) 10^6/uL Hgb (12.0-16.0) g/dL Hct (37.0-47.0) % MCV (81.0-99.0) fL MCH (27.0-31.0) pg MCHC (32.0-36.0) g/dL RDW (12.0-15.0) % Plt Count (130-450) 10^3/uL MPV (7.9-10.8) fL Neut # (Auto) (1.5-6.6) 10^3/uL Lymph # (Auto) (1.5-3.5) 10^3/uL [place] # (Auto) (0.0-1.0) 10^3/uL Eos # (Auto) (0.0-0.7) 10^3/uL Baso # (Auto) (0.0-0.1) 10^3/uL Absolute Nucleated RBC x10^3/uL Nucleated RBC % /100WBC Bld Gas Analysis Time Sample Site ABG pH (7.35-7.45) ABG pCO2 (34-45) mmHg ABG pO2 (80-100) mmHg ABG HCO3 (22.0-26.0) mmol/L ABG Total CO2 (21.0-29.0) MMOL/L ABG O2 Saturation (94-98) % ABG Base Excess (-2.0-3.0) mmol/L Hema Test VBG pH (7.31-7.41) Ionized Calcium (1.15-1.33) mmol/L O2 Delivery Device O2 Liters/Min LPM FiO2 EPAP cmH2O IPAP cmH2O Sodium 137 (135-145) mmol/L Potassium 4.9 (3.5-5.0) mmol/L Chloride 95 L (101-111) mmol/L Carbon Dioxide 31 (21-32) mmol/L Anion Gap 11.0 (6-13) BUN 33 H (6-20) mg/dL Creatinine 1.9 H (0.4-1.0) mg/dL Estimated GFR (MDRD) 26 L (>89) Glucose 159 H (70-100) mg/dL Lactic Acid (0.5-2.2) mmol/L Calcium 8.3 L (8.5-10.3) mg/dL Phosphorus (2.5-4.6) mg/dL Magnesium (1.7-2.8) mg/dL Total Bilirubin 0.5 (0.2-1.0) mg/dL AST 10 (10-42) IU/L ALT < 10 L (10-60) IU/L Alkaline Phosphatase 103 (42-121) IU/L Troponin I High Sens 58.1 H* (2.3-14.8) ng/L B-Natriuretic Peptide (5-100) pg/mL Total Protein 7.4 (6.7-8.2) g/dL Albumin 3.5 (3.2-5.5) g/dL Globulin 3.9 (2.1-4.2) g/dL Albumin/Globulin Ratio 0.9 L (1.0-2.2) Lipase 124 H (22-51) U/L TSH 2.73 (0.34-5.60) uIU/mL Urine Color Urine Clarity (CLEAR) Urine pH (5.0-7.5) PH Ur Specific [place] (1.002-1.030) Urine Protein (NEGATIVE) mg/dL Urine Glucose (UA) (NEGATIVE) mg/dL Urine Ketones (NEGATIVE) mg/dL Urine Occult Blood (NEGATIVE) Urine Nitrite (NEGATIVE) Urine Bilirubin (NEGATIVE) Urine Urobilinogen (NORMAL) E.U./dL Ur Leukocyte Esterase (NEGATIVE) Urine RBC (0-5) /HPF Urine WBC (0-5) /HPF Urine WBC Clumps Ur Squamous Epith Cells (<= Few) Urine Bacteria (None Seen) /HPF Ur Microscopic Review Urine Culture Comments Nasal Screen MRSA (PCR) (NEGATIVE) Salicylates < 4.0 mg/dL Urine Opiates Screen (NEGATIVE) Ur Oxycodone Screen (NEGATIVE) Urine Methadone Screen (NEGATIVE) Ur Propoxyphene Screen (NEGATIVE) Acetaminophen < 10 L (10-30) ug/mL Ur Barbiturates Screen (NEGATIVE) Ur Tricyclics Screen (NEGATIVE) Ur Phencyclidine Scrn (NEGATIVE) Ur Amphetamine Screen (NEGATIVE) U Methamphetamines Scrn (NEGATIVE) U Benzodiazepines Scrn (NEGATIVE) Urine Cocaine Screen (NEGATIVE) U Cannabinoids Screen (NEGATIVE) Ethyl Alcohol < 5.0 mg/dL SARS-CoV-2 (PCR) 07/15/21 Range/Units 12:30 WBC 15.2 H (4.8-10.8) x10^3/uL RBC 3.50 L (4.20-5.40) 10^6/uL Hgb 11.0 L (12.0-16.0) g/dL Hct 37.2 (37.0-47.0) % MCV 106.3 H (81.0-99.0) fL MCH 31.4 H (27.0-31.0) pg MCHC 29.6 L (32.0-36.0) g/dL RDW 16.4 H (12.0-15.0) % Plt Count 224 (130-450) 10^3/uL MPV 8.9 (7.9-10.8) fL Neut # (Auto) 13.4 H (1.5-6.6) 10^3/uL Lymph # (Auto) 0.8 L (1.5-3.5) 10^3/uL [place] # (Auto) 0.9 (0.0-1.0) 10^3/uL Eos # (Auto) 0.0 (0.0-0.7) 10^3/uL Baso # (Auto) 0.1 (0.0-0.1) 10^3/uL Absolute Nucleated RBC 0.00 x10^3/uL Nucleated RBC % 0.0 /100WBC Bld Gas Analysis Time Sample Site ABG pH (7.35-7.45) ABG pCO2 (34-45) mmHg ABG pO2 (80-100) mmHg ABG HCO3 (22.0-26.0) mmol/L ABG Total CO2 (21.0-29.0) MMOL/L ABG O2 Saturation (94-98) % ABG Base Excess (-2.0-3.0) mmol/L Hema Test VBG pH (7.31-7.41) Ionized Calcium (1.15-1.33) mmol/L O2 Delivery Device O2 Liters/Min LPM FiO2 EPAP cmH2O IPAP cmH2O Sodium (135-145) mmol/L Potassium (3.5-5.0) mmol/L Chloride (101-111) mmol/L Carbon Dioxide (21-32) mmol/L Anion Gap (6-13) BUN (6-20) mg/dL Creatinine (0.4-1.0) mg/dL Estimated GFR (MDRD) (>89) Glucose (70-100) mg/dL Lactic Acid (0.5-2.2) mmol/L Calcium (8.5-10.3) mg/dL Phosphorus (2.5-4.6) mg/dL Magnesium (1.7-2.8) mg/dL Total Bilirubin (0.2-1.0) mg/dL AST (10-42) IU/L ALT (10-60) IU/L Alkaline Phosphatase (42-121) IU/L Troponin I High Sens (2.3-14.8) ng/L B-Natriuretic Peptide (5-100) pg/mL Total Protein (6.7-8.2) g/dL Albumin (3.2-5.5) g/dL Globulin (2.1-4.2) g/dL Albumin/Globulin Ratio (1.0-2.2) Lipase (22-51) U/L TSH (0.34-5.60) uIU/mL Urine Color Urine Clarity (CLEAR) Urine pH (5.0-7.5) PH Ur Specific [place] (1.002-1.030) Urine Protein (NEGATIVE) mg/dL Urine Glucose (UA) (NEGATIVE) mg/dL Urine Ketones (NEGATIVE) mg/dL Urine Occult Blood (NEGATIVE) Urine Nitrite (NEGATIVE) Urine Bilirubin (NEGATIVE) Urine Urobilinogen (NORMAL) E.U./dL Ur Leukocyte Esterase (NEGATIVE) Urine RBC (0-5) /HPF Urine WBC (0-5) /HPF Urine WBC Clumps Ur Squamous Epith Cells (<= Few) Urine Bacteria (None Seen) /HPF Ur Microscopic Review Urine Culture Comments Nasal Screen MRSA (PCR) (NEGATIVE) Salicylates mg/dL Urine Opiates Screen (NEGATIVE) Ur Oxycodone Screen (NEGATIVE) Urine Methadone Screen (NEGATIVE) Ur Propoxyphene Screen (NEGATIVE) Acetaminophen (10-30) ug/mL Ur Barbiturates Screen (NEGATIVE) Ur Tricyclics Screen (NEGATIVE) Ur Phencyclidine Scrn (NEGATIVE) Ur Amphetamine Screen (NEGATIVE) U Methamphetamines Scrn (NEGATIVE) U Benzodiazepines Scrn (NEGATIVE) Urine Cocaine Screen (NEGATIVE) U Cannabinoids Screen (NEGATIVE) Ethyl Alcohol mg/dL SARS-CoV-2 (PCR) Assessment/Plan - Problem List (1) Acute respiratory failure with hypoxia and hypercapnia Impression: I suspect this is secondary to heart failure rather than a COPD exacerbation. Her hypercapnia was the cause of her encephalopathy. She is improved today and is off of BiPAP but is still requiring 5 L of oxygen via nasal cannula. We will begin to diurese her with Lasix 40 mg IV. Unfortunate do not have echocardiogram available to assess her left ventricular function. She does not appear to be in exacerbation from a COPD standpoint so we will hold off on steroids we will use nebulizers as needed. I suspect she need oxygen at home and she will need an exercise the saturation test prior to discharge. (2) Encephalopathy Impression: This appears secondary to CO2 narcosis and has since resolved after treatment with BiPAP. We are managing her respiratory failure as mentioned above. (3) Elevated troponin Impression: Her troponins peaked at a little over 200. Her EKG did not suggest ischemia and her chest pain is atypical and related to her lung cancer. Do not suspect ische petr at this point in time. The elevation is likely demand ischemia secondary to her respiratory failure. Based off of her clinical course and treatment of her lung cancer, a stress test may be considered on outpatient basis. (4) UTI (urinary tract infection) Impression: She does report dysuria which is consistent with infection. We will switch her to oral antibiotics and discontinue the ceftriaxone as we await sensitivities. Qualifiers: Urinary tract infection type: acute cystitis Hematuria presence: without hematuria Qualified Code(s): N30.00 - Acute cystitis without hematuria (5) Metastatic non-small cell lung cancer Impression: This is an ongoing problem for her. She will follow up with oncology on discharge. Palliative care did meet with her today and appreciate their input. (6) Chronic kidney disease Impression: Her creatinine is actually improved today as it is down to 1.5 compared to baseline of around 1.8-1.9. We will monitor this as she is now being diuresed. Qualifiers: Chronic kidney disease stage: stage 3 (moderate) (7) Peripheral neuropathy Impression: We have resumed her home gabapentin but at a reduced dose. We will look to resume her usual dose in the morning.
[2021-07-16] MEDS: HEPARIN 5,000 UNIT/ML VIAL SUBQ SCH ×2 (08:22→20:11)
[2021-07-16] MEDS: cefTRIAXone 1 GM in SODIUM CHLORIDE 0.9% MINIBAG 100 ML IV SCH (08:34)
[2021-07-16] MEDS: polyethylene glycoL 3350 17 GM PACKET PO SCH (08:42)
[2021-07-16] MEDS: NICOTINE 21 MG PATCH TOP SCH (09:48)
[2021-07-16] MEDS: FUROSEMIDE 40 MG/4 ML VIAL IVP SCH (09:51)
--- NOTE | 2021-07-16 11:35 | CONSULTATION NOTE ---
Palliative Care Follow Up - Referral Referring Provider: Emiliano Kennedy MD Time of Visit: [id number] Referral setting: Hospitalized patient Referral Reason: Goals of Care/Depression/Met Lung CA/CHF/COPD - Information Sources Records reviewed: Previous records reviewed History/Review of Systems obtained from: Patient Exam limitations: Clinical condition (patient with some STM deficits) - History of Present Illness Update Brief HPI Update: This is a 70-year-old man with metastatic lung cancer, his been on second line nivolumab since 05/2016, with recent restaging scan showing progression with new bilateral lung nodules and a large mediastinal adenopathy. Patient has been longstanding palliative care patient since 04/24, with long-term rapport. Patient does have high anxiety, poor health literacy, and does understand the seriousness of her illness. She has been appropriate in planning for end-of-life care, but her goals are to stay alive as long as possible for her granddaughter Juan Ramon, as well as continue to be independent. Patient was most recently seen 07/11 with an exacerbation of her CHF, and lower extremity edema, patient diuretics were adjusted, patient with increased pain and discomfort seco ndary lower extremity swelling. Patient has also though had increasing functional decline over the last several weeks, and has had more difficulty meeting her ADL needs. Patient was admitted acutely as she was found unresponsive on 07/15, it is unclear nor did she have any recall how her decline happened, they did find empty bottles near her, patient actually is fairly pill adverse, and is very a damant she would never do anything to harm herself, particularly in the context of her roommate and/or granddaughter. She has been lethargic, is now a little bit more responsive. Though she is difficult to wake at time of visit, she does engage both for myself and ICU nurse Cherie. There has been questions as far as given she was on BiPAP yesterday, whether to ventilate her not if she were to be more hypercapnic.Long discussion with many sidebars, but patient would not want to lose her indepe ndent, or be vent dependent, she would accept the BiPAP to treat reversible conditions, she is consistent with her do not attempt resuscitation. Patient is easily flustered and overwhelmed, do feel like she understood the implications and content of the information. This was then translated to the hospitalist and will put in her wishes today.Patient is a chain smoker, usually 2 packs a day, is finding it quite difficult, but she is quite weak, with significant wheezing and coughing spasms, though this tends to be her baseline. Past Medical History: Hypertension, high cholesterol, history of VA, COPD emphysema, lung cancer, peripheral neuropathy, type 2 diabetes, hypothyroidism, chronic incontinence, chronic vision loss, depression, anxiety, osteoarthritis, fatigue Social History - Living Situation Living arrangement: At home Living Situation: With friend(s) Support System: Patient lives in an apartment with her long-term good friend Olivia, who provides caregiving and support for shopping and transportation. She is very much dependent also her emotional support, as well as has assigned her DPOA. [place] and her granddaughter Juan Ramon who she is very close to and is her reason for continuing on treatment and living. 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 Patient does have an apartment that is up a story of stairs, she has been declining functionally and needing increased assistance. Medications/Allergies - Medications Active Medication List: Active Medications Acetaminophen (Acetaminophen 325 Mg Tablet) 650 mg PO Q4HR PRN PRN Reason: Pain 1 to 4, or Fever Ferrous Sulfate (Ferrous Sulfate 325 Mg Tablet) 325 mg PO DAILYWM [facility] Furosemide (Furosemide 40 Mg/4 Ml Vial) 40 mg IVP DAILY [facility] Last Admin: 07/16/21 09:51 Dose: 40 mg Heparin Sodium (Porcine) (Heparin 5,000 Unit/Ml Vial) 5,000 unit SUBQ BID [facility] Last Admin: 07/16/21 08:22 Dose: 5,000 unit Ceftriaxone Sodium 1 gm/ (Sodium Chloride) 100 mls @ 200 mls/hr IV DAILY [facility] Last Infusion: 07/16/21 10:04 Dose: Infused Mineral Oil (Min Oil/Dimethicon/Coconut Oil 92 Gm Tube) 1 applic TOP PRN PRN PRN Reason: Skin Care Nicotine (Nicotine 21 Mg Patch) 1 patch TOP DAILY [facility] Last Admin: 07/16/21 09:48 Dose: 1 patch Ondansetron HCl (Ondansetron Odt 4 Mg Tablet) 4 mg TL Q6HR PRN PRN Reason: Nausea / Vomiting Ondansetron HCl (Ondansetron 4 Mg/2 Ml Vial) 4 mg IVP Q6HR PRN PRN Reason: Nausea / Vomiting Pantoprazole Sodium (Pantoprazole 40 Mg Tablet) 40 mg PO QDAC [facility] Polyethylene Glycol (Polyethylene Glycol 3350 17 Gm Packet) 17 gm PO DAILY [facility] Last Admin: 07/16/21 08:42 Dose: 17 gm Sodium Chloride (Sodium Chloride Flush 0.9% 10 Ml Syringe) 10 ml IVP 0100,0900,1700 [facility] Last Admin: 07/16/21 08:43 Dose: 10 ml Sodium Chloride (Sodium Chloride Flush 0.9% 10 Ml Syringe) 10 ml IVP PRN PRN PRN Reason: NEEDED PER PROVIDER ORDERS Last Admin: 07/16/21 05:41 Dose: 10 ml Simvastatin 80 mg PO DAILY 04/27/15 Levothyroxine [Synthroid] 75 mcg PO DAILY 10/04/18 Zolpidem [Ambien] 10 mg ORAL QPM PRN 04/18/19 Albuterol Sulfate [Proair Hfa Inhaler] 2 puffs INH Q4HR PRN 05/30/19 polyethylene glycoL 3350 [Miralax] 8.5 - 17 mg PO DAILY PRN 01/09/20 Gabapentin 600 mg PO BID 02/06/20 Omeprazole 40 mg PO DAILY 07/23/20 Folic Acid 1 mg PO DAILY 10/08/20 Metoprolol Succinate [Toprol Xl] 25 mg PO DAILY 11/13/20 Furosemide [Lasix] 20 mg PO DAILY 11/26/20 Ferrous Gluconate 324 mg PO DAILY 05/27/21 HYDROcod/ACETAM 5/325 [[place] 5/325] 1 - 2 tab PO TID PRN 05/27/21 Sotorasib [Lumakras] 960 mg PO DAILY MDD not started yet 06/25/21 - Allergies Allergies/Adverse Reactions: Allergies Allergy/AdvReac Type Severity Reaction Status Date / Time No Known Drug Allergies Allergy Verified 12/10/20 10:26 Review of Systems - Constitutional Constitutional: reports: Fatigue (most problematic symptom), Weakness (worsening, needing walker for all ambulation new last few weeks; currently weak and in bed), Night sweats, Weight gain (appears mostly fluid) - Eyes Eyes: reports: Blurred vision, Vision loss, Other - Ears, Nose & Throat Ears, Nose & Throat: reports: Hearing loss, Dentures, Dry mouth - Cardiovascular Cardiovascular: reports: Edema (significant; has been getting worse over 2-3 weeks; on exam is better than on Wednesday), Exertional dyspnea, Decr. exercise tolerance, Orthopnea (needing to sleep in recliner intermittently). denies: Palpitations, Chest pain - Respiratory Respiratory: reports: Cough (coughing spasms), Sputum production, Wheezing, Orthopnea, SOB at rest, SOB with exertion, Other - Gastrointestinal Gastrointestinal: reports: Poor appetite, Early satiety - Genitourinary Genitourinary: reports: Other (currently with stringer catheter) - Musculoskeletal Musculoskeletal: reports: Back pain, Stiffness, Muscle weakness, Assistive devices (uses walker now even for short distances at home; ADLS have been more difficult) - Integumentary Integumentary: reports: Dryness - Neurological Neurological: reports: General weakness, Numbness (bilateral peripheral neuropathy; reports NEW numbness in outer fingers of both hands; interfering with some fine motor activities; continues to worsen), Memory problems (does not recall last few days) - Psychiatric Psychiatric: reports: Depression, Anxiety (worried getting new treatment going; says got approval letter) - Endocrine Endocrine: reports: Diabetes type 2, Hypothyroidism - Hematologic/Lymphatic Hematologic/Lymph: reports: Anemia (9.0) - All Other Systems All Other Systems: reports: Other (limited) Physical Exam - Vital Signs Vital Signs: Vital Signs x48h Pulse Pulse Resp BP Pulse Ox 07/16/21 10:00 88 18 94 07/16/21 09:00 93 21 106/53 L 95 07/16/21 07:59 96 20 125/91 H 92 07/16/21 07:00 87 21 106/58 L 07/16/21 06:05 86 21 95/57 L 96 07/16/21 05:00 84 17 115/59 L 94 07/16/21 04:45 89 07/16/21 04:00 75 11 L 99/49 L 94 - Physical Exam General Appearance: positive: Alert, Mild distress (with worsening edema; sob), Anxious Eyes Bilateral: positive: No scleral icterus Neck: positive: Trachea midline Cardiovascular: positive: Regular rate & rhythm Respiratory: positive: Wheezes (wheezing noted wtih coughing spasms). negative: No respiratory distress (more respiratory effort with conversation; movement) Abdomen: positive: Other (rounded) Skin: positive: Pallor, Dryness Extremities: positive: Pedal edema (has SCDs on; appears improved from Wednesday) Neurologic/Psychiatric: positive: Oriented x3, Weakness, Depressed mood/affect, Flat affect Palliative Care - POLST Patient has POLST: Yes POLST Status: DNR, Selective Treatment (reviewed DNI-Bipap okay) Feelings of wellbeing/Perceived Quality of Life: Poor, Worsening Performance Status: Patient has had declining functional status overall in the last couple weeks, more acutely over the last few days. Patient currently is bedbound. Would recommend physical and occupational therapy, patient uses walker at home. - Palliative Care Discussion: Patient initially lethargic, did eventually clear. Was able to engage with the nurse and HOUSEHOLD APPLIANCES SALESPERSON, for conversations around goals of care. There seems to be some disconnect and conversation. Patient has always had difficulty understanding the nuances around medical decision making. We reviewed again patient's goals and outcomes, patient is quite clear when it is her time she wants to be a DO NOT RESUSCITATE, if there is a chance she is to improve, she would accept support, we discussed support BiPAP versus ventilatory support, given patient's severe COPD and lung cancer most likely would be a significant risk of ventilation and poor outcomes, patient would not want to not be independent and would be concerned about "pulling the plug". She would though accept BiPAP, she has some recollection of being on this last night, we discussed if something were to be reversible BiPAP would most likely be a good temporary measure. She is in agreement for this. This is communicated to the hospitalist as well. Patient's goals continue treatment, she would like to be independent as much as possible, she does have a caregiver/roommate Olivia but she is limited as far as physical care she can provide patient. Patient is aware of this, and would not want to be placed or in a mcfp if that with the sequlue of an event or hospitalization. Results - Lab Results Lab results reviewed: Yes Fish Bones: 07/16/21 04:08 07/16/21 04:08 Lab and Imaging Results: Lab Results x24hrs 07/16/21 07/16/21 07/16/21 Range/Units 04:08 04:08 04:08 WBC (4.8-10.8) x10^3/uL RBC (4.20-5.40) 10^6/uL Hgb (12.0-16.0) g/dL Hct (37.0-47.0) % MCV (81.0-99.0) fL MCH (27.0-31.0) pg MCHC (32.0-36.0) g/dL RDW (12.0-15.0) % Plt Count (130-450) 10^3/uL MPV (7.9-10.8) fL Neut # (Auto) (1.5-6.6) 10^3/uL Lymph # (Auto) (1.5-3.5) 10^3/uL Potter # (Auto) (0.0-1.0) 10^3/uL Eos # (Auto) (0.0-0.7) 10^3/uL Baso # (Auto) (0.0-0.1) 10^3/uL Absolute Nucleated RBC x10^3/uL Nucleated RBC % /100WBC Bld Gas Analysis Time Sample Site ABG pH (7.35-7.45) ABG pCO2 (34-45) mmHg ABG pO2 (80-100) mmHg ABG HCO3 (22.0-26.0) mmol/L ABG Total CO2 (21.0-29.0) MMOL/L ABG O2 Saturation (94-98) % ABG Base Excess (-2.0-3.0) mmol/L Hema Test VBG pH 7.354 (7.31-7.41) Ionized Calcium 1.01 L (1.15-1.33) mmol/L O2 Delivery Device O2 Liters/Min LPM FiO2 EPAP cmH2O IPAP cmH2O Sodium (135-145) mmol/L Potassium (3.5-5.0) mmol/L Chloride (101-111) mmol/L Carbon Dioxide (21-32) mmol/L Anion Gap (6-13) BUN (6-20) mg/dL Creatinine (0.4-1.0) mg/dL Estimated GFR (MDRD) (>89) Glucose (70-100) mg/dL Lactic Acid (0.5-2.2) mmol/L Calcium (8.5-10.3) mg/dL Phosphorus (2.5-4.6) mg/dL Magnesium (1.7-2.8) mg/dL Total Bilirubin (0.2-1.0) mg/dL AST (10-42) IU/L ALT (10-60) IU/L Alkaline Phosphatase (42-121) IU/L Troponin I High Sens 149.4 H* (2.3-14.8) ng/L B-Natriuretic Peptide 758 H (5-100) pg/mL Total Protein (6.7-8.2) g/dL Albumin (3.2-5.5) g/dL Globulin (2.1-4.2) g/dL Albumin/Globulin Ratio (1.0-2.2) Lipase (22-51) U/L TSH (0.34-5.60) uIU/mL Urine Color Urine Clarity (CLEAR) Urine pH (5.0-7.5) PH Ur Specific Galt (1.002-1.030) Urine Protein (NEGATIVE) mg/dL Urine Glucose (UA) (NEGATIVE) mg/dL Urine Ketones (NEGATIVE) mg/dL Urine Occult Blood (NEGATIVE) Urine Nitrite (NEGATIVE) Urine Bilirubin (NEGATIVE) Urine Urobilinogen (NORMAL) E.U./dL Ur Leukocyte Esterase (NEGATIVE) Urine RBC (0-5) /HPF Urine WBC (0-5) /HPF Urine WBC Clumps Ur Squamous Epith Cells (<= Few) Urine Bacteria (None Seen) /HPF Ur Microscopic Review Urine Culture Comments Nasal Screen MRSA (PCR) (NEGATIVE) Salicylates mg/dL Urine Opiates Screen (NEGATIVE) Ur Oxycodone Screen (NEGATIVE) Urine Methadone Screen (NEGATIVE) Ur Propoxyphene Screen (NEGATIVE) Acetaminophen (10-30) ug/mL Ur Barbiturates Screen (NEGATIVE) Ur Tricyclics Screen (NEGATIVE) Ur Phencyclidine Scrn (NEGATIVE) Ur Amphetamine Screen (NEGATIVE) U Methamphetamines Scrn (NEGATIVE) U Benzodiazepines Scrn (NEGATIVE) Urine Cocaine Screen (NEGATIVE) U Cannabinoids Screen (NEGATIVE) Ethyl Alcohol mg/dL SARS-CoV-2 (PCR) 07/16/21 07/16/21 07/15/21 Range/Units 04:08 04:08 20:59 WBC 8.0 (4.8-10.8) x10^3/uL RBC 2.91 L (4.20-5.40) 10^6/uL Hgb 9.0 L (12.0-16.0) g/dL Hct 31.0 L (37.0-47.0) % MCV 106.5 H (81.0-99.0) fL MCH 30.9 (27.0-31.0) pg MCHC 29.0 L (32.0-36.0) g/dL RDW 16.2 H (12.0-15.0) % Plt Count 180 (130-450) 10^3/uL MPV 9.2 (7.9-10.8) fL Neut # (Auto) 6.4 (1.5-6.6) 10^3/uL Lymph # (Auto) 1.0 L (1.5-3.5) 10^3/uL Potter # (Auto) 0.5 (0.0-1.0) 10^3/uL Eos # (Auto) 0.0 (0.0-0.7) 10^3/uL Baso # (Auto) 0.0 (0.0-0.1) 10^3/uL Absolute Nucleated RBC 0.00 x10^3/uL Nucleated RBC % 0.0 /100WBC Bld Gas Analysis Time Sample Site ABG pH (7.35-7.45) ABG pCO2 (34-45) mmHg ABG pO2 (80-100) mmHg ABG HCO3 (22.0-26.0) mmol/L ABG Total CO2 (21.0-29.0) MMOL/L ABG O2 Saturation (94-98) % ABG Base Excess (-2.0-3.0) mmol/L Hema Test VBG pH (7.31-7.41) Ionized Calcium (1.15-1.33) mmol/L O2 Delivery Device O2 Liters/Min LPM FiO2 EPAP cmH2O IPAP cmH2O Sodium 137 (135-145) mmol/L Potassium 4.5 (3.5-5.0) mmol/L Chloride 100 L (101-111) mmol/L Carbon Dioxide 28 (21-32) mmol/L Anion Gap 9.0 (6-13) BUN 31 H (6-20) mg/dL Creatinine 1.5 H (0.4-1.0) mg/dL Estimated GFR (MDRD) 35 L (>89) Glucose 116 H (70-100) mg/dL Lactic Acid (0.5-2.2) mmol/L Calcium 7.9 L (8.5-10.3) mg/dL Phosphorus 6.3 H (2.5-4.6) mg/dL Magnesium 2.1 (1.7-2.8) mg/dL Total Bilirubin (0.2-1.0) mg/dL AST (10-42) IU/L ALT (10-60) IU/L Alkaline Phosphatase (42-121) IU/L Troponin I High Sens 257.4 H* (2.3-14.8) ng/L B-Natriuretic Peptide (5-100) pg/mL Total Protein (6.7-8.2) g/dL Albumin (3.2-5.5) g/dL Globulin (2.1-4.2) g/dL Albumin/Globulin Ratio (1.0-2.2) Lipase (22-51) U/L TSH (0.34-5.60) uIU/mL Urine Color Urine Clarity (CLEAR) Urine pH (5.0-7.5) PH Ur Specific Galt (1.002-1.030) Urine Protein (NEGATIVE) mg/dL Urine Glucose (UA) (NEGATIVE) mg/dL Urine Ketones (NEGATIVE) mg/dL Urine Occult Blood (NEGATIVE) Urine Nitrite (NEGATIVE) Urine Bilirubin (NEGATIVE) Urine Urobilinogen (NORMAL) E.U./dL Ur Leukocyte Esterase (NEGATIVE) Urine RBC (0-5) /HPF Urine WBC (0-5) /HPF Urine WBC Clumps Ur Squamous Epith Cells (<= Few) Urine Bacteria (None Seen) /HPF Ur Microscopic Review Urine Culture Comments Nasal Screen MRSA (PCR) (NEGATIVE) Salicylates mg/dL Urine Opiates Screen (NEGATIVE) Ur Oxycodone Screen (NEGATIVE) Urine Methadone Screen (NEGATIVE) Ur Propoxyphene Screen (NEGATIVE) Acetaminophen (10-30) ug/mL Ur Barbiturates Screen (NEGATIVE) Ur Tricyclics Screen (NEGATIVE) Ur Phencyclidine Scrn (NEGATIVE) Ur Amphetamine Screen (NEGATIVE) U Methamphetamines Scrn (NEGATIVE) U Benzodiazepines Scrn (NEGATIVE) Urine Cocaine Screen (NEGATIVE) U Cannabinoids Screen (NEGATIVE) Ethyl Alcohol mg/dL SARS-CoV-2 (PCR) 07/15/21 07/15/21 07/15/21 Range/Units 17:45 17:00 15:10 WBC (4.8-10.8) x10^3/uL RBC (4.20-5.40) 10^6/uL Hgb (12.0-16.0) g/dL Hct (37.0-47.0) % MCV (81.0-99.0) fL MCH (27.0-31.0) pg MCHC (32.0-36.0) g/dL RDW (12.0-15.0) % Plt Count (130-450) 10^3/uL MPV (7.9-10.8) fL Neut # (Auto) (1.5-6.6) 10^3/uL Lymph # (Auto) (1.5-3.5) 10^3/uL Potter # (Auto) (0.0-1.0) 10^3/uL Eos # (Auto) (0.0-0.7) 10^3/uL Baso # (Auto) (0.0-0.1) 10^3/uL Absolute Nucleated RBC x10^3/uL Nucleated RBC % /100WBC Bld Gas Analysis Time 1758 Sample Site LEFT RADIAL ABG pH 7.35 (7.35-7.45) ABG pCO2 61 H* (34-45) mmHg ABG pO2 68 L (80-100) mmHg ABG HCO3 33.6 H (22.0-26.0) mmol/L ABG Total CO2 35.0 H (21.0-29.0) MMOL/L ABG O2 Saturation 92 L (94-98) % ABG Base Excess 8.0 H (-2.0-3.0) mmol/L Hema Test POSITIVE VBG pH (7.31-7.41) Ionized Calcium (1.15-1.33) mmol/L O2 Delivery Device BiPAP O2 Liters/Min LPM FiO2 40.00 EPAP 5 cmH2O IPAP 12 cmH2O Sodium (135-145) mmol/L Potassium (3.5-5.0) mmol/L Chloride (101-111) mmol/L Carbon Dioxide (21-32) mmol/L Anion Gap (6-13) BUN (6-20) mg/dL Creatinine (0.4-1.0) mg/dL Estimated GFR (MDRD) (>89) Glucose (70-100) mg/dL Lactic Acid (0.5-2.2) mmol/L Calcium (8.5-10.3) mg/dL Phosphorus (2.5-4.6) mg/dL Magnesium (1.7-2.8) mg/dL Total Bilirubin (0.2-1.0) mg/dL AST (10-42) IU/L ALT (10-60) IU/L Alkaline Phosphatase (42-121) IU/L Troponin I High Sens 197.4 H* (2.3-14.8) ng/L B-Natriuretic Peptide (5-100) pg/mL Total Protein (6.7-8.2) g/dL Albumin (3.2-5.5) g/dL Globulin (2.1-4.2) g/dL Albumin/Globulin Ratio (1.0-2.2) Lipase (22-51) U/L TSH (0.34-5.60) uIU/mL Urine Color Urine Clarity (CLEAR) Urine pH (5.0-7.5) PH Ur Specific Galt (1.002-1.030) Urine Protein (NEGATIVE) mg/dL Urine Glucose (UA) (NEGATIVE) mg/dL Urine Ketones (NEGATIVE) mg/dL Urine Occult Blood (NEGATIVE) Urine Nitrite (NEGATIVE) Urine Bilirubin (NEGATIVE) Urine Urobilinogen (NORMAL) E.U./dL Ur Leukocyte Esterase (NEGATIVE) Urine RBC (0-5) /HPF Urine WBC (0-5) /HPF Urine WBC Clumps Ur Squamous Epith Cells (<= Few) Urine Bacteria (None Seen) /HPF Ur Microscopic Review Urine Culture Comments Nasal Screen MRSA (PCR) NEGATIVE (NEGATIVE) Salicylates mg/dL Urine Opiates Screen (NEGATIVE) Ur Oxycodone Screen (NEGATIVE) Urine Methadone Screen (NEGATIVE) Ur Propoxyphene Screen (NEGATIVE) Acetaminophen (10-30) ug/mL Ur Barbiturates Screen (NEGATIVE) Ur Tricyclics Screen (NEGATIVE) Ur Phencyclidine Scrn (NEGATIVE) Ur Amphetamine Screen (NEGATIVE) U Methamphetamines Scrn (NEGATIVE) U Benzodiazepines Scrn (NEGATIVE) Urine Cocaine Screen (NEGATIVE) U Cannabinoids Screen (NEGATIVE) Ethyl Alcohol mg/dL SARS-CoV-2 (PCR) 07/15/21 07/15/2107/15/22 Range/Units 15:05 14:37 13:37 WBC (4.8-10.8) x10^3/uL RBC (4.20-5.40) 10^6/uL Hgb (12.0-16.0) g/dL Hct (37.0-47.0) % MCV (81.0-99.0) fL MCH (27.0-31.0) pg MCHC (32.0-36.0) g/dL RDW (12.0-15.0) % Plt Count (130-450) 10^3/uL MPV (7.9-10.8) fL Neut # (Auto) (1.5-6.6) 10^3/uL Lymph # (Auto) (1.5-3.5) 10^3/uL Potter # (Auto) (0.0-1.0) 10^3/uL Eos # (Auto) (0.0-0.7) 10^3/uL Baso # (Auto) (0.0-0.1) 10^3/uL Absolute Nucleated RBC x10^3/uL Nucleated RBC % /100WBC Bld Gas Analysis Time 1441 Sample Site LEFT RADIAL ABG pH 7.25 L (7.35-7.45) ABG pCO2 72 H* (34-45) mmHg ABG pO2 47 L* (80-100) mmHg ABG HCO3 30.7 H (22.0-26.0) mmol/L ABG Total CO2 32.9 H (21.0-29.0) MMOL/L ABG O2 Saturation 80 L* (94-98) % ABG Base Excess 1.8 (-2.0-3.0) mmol/L Hema Test POSITIVE VBG pH (7.31-7.41) Ionized Calcium (1.15-1.33) mmol/L O2 Delivery Device OXYMASK O2 Liters/Min 4.00 LPM FiO2 EPAP cmH2O IPAP cmH2O Sodium (135-145) mmol/L Potassium (3.5-5.0) mmol/L Chloride (101-111) mmol/L Carbon Dioxide (21-32) mmol/L Anion Gap (6-13) BUN (6-20) mg/dL Creatinine (0.4-1.0) mg/dL Estimated GFR (MDRD) (>89) Glucose (70-100) mg/dL Lactic Acid 0.9 (0.5-2.2) mmol/L Calcium (8.5-10.3) mg/dL Phosphorus (2.5-4.6) mg/dL Magnesium (1.7-2.8) mg/dL Total Bilirubin (0.2-1.0) mg/dL AST (10-42) IU/L ALT (10-60) IU/L Alkaline Phosphatase (42-121) IU/L Troponin I High Sens 162.1 H* (2.3-14.8) ng/L B-Natriuretic Peptide (5-100) pg/mL Total Protein (6.7-8.2) g/dL Albumin (3.2-5.5) g/dL Globulin (2.1-4.2) g/dL Albumin/Globulin Ratio (1.0-2.2) Lipase (22-51) U/L TSH (0.34-5.60) uIU/mL Urine Color Urine Clarity (CLEAR) Urine pH (5.0-7.5) PH Ur Specific Galt (1.002-1.030) Urine Protein (NEGATIVE) mg/dL Urine Glucose (UA) (NEGATIVE) mg/dL Urine Ketones (NEGATIVE) mg/dL Urine Occult Blood (NEGATIVE) Urine Nitrite (NEGATIVE) Urine Bilirubin (NEGATIVE) Urine Urobilinogen (NORMAL) E.U./dL Ur Leukocyte Esterase (NEGATIVE) Urine RBC (0-5) /HPF Urine WBC (0-5) /HPF Urine WBC Clumps Ur Squamous Epith Cells (<= Few) Urine Bacteria (None Seen) /HPF Ur Microscopic Review Urine Culture Comments Nasal Screen MRSA (PCR) (NEGATIVE) Salicylates mg/dL Urine Opiates Screen (NEGATIVE) Ur Oxycodone Screen (NEGATIVE) Urine Methadone Screen (NEGATIVE) Ur Propoxyphene Screen (NEGATIVE) Acetaminophen (10-30) ug/mL Ur Barbiturates Screen (NEGATIVE) Ur Tricyclics Screen (NEGATIVE) Ur Phencyclidine Scrn (NEGATIVE) Ur Amphetamine Screen (NEGATIVE) U Methamphetamines Scrn (NEGATIVE) U Benzodiazepines Scrn (NEGATIVE) Urine Cocaine Screen (NEGATIVE) U Cannabinoids Screen (NEGATIVE) Ethyl Alcohol mg/dL SARS-CoV-2 (PCR) 07/15/21 07/15/21 07/15/21 Range/Units 12:30 12:30 12:30 WBC (4.8-10.8) x10^3/uL RBC (4.20-5.40) 10^6/uL Hgb (12.0-16.0) g/dL Hct (37.0-47.0) % MCV (81.0-99.0) fL MCH (27.0-31.0) pg MCHC (32.0-36.0) g/dL RDW (12.0-15.0) % Plt Count (130-450) 10^3/uL MPV (7.9-10.8) fL Neut # (Auto) (1.5-6.6) 10^3/uL Lymph # (Auto) (1.5-3.5) 10^3/uL Potter # (Auto) (0.0-1.0) 10^3/uL Eos # (Auto) (0.0-0.7) 10^3/uL Baso # (Auto) (0.0-0.1) 10^3/uL Absolute Nucleated RBC x10^3/uL Nucleated RBC % /100WBC Bld Gas Analysis Time Sample Site ABG pH (7.35-7.45) ABG pCO2 (34-45) mmHg ABG pO2 (80-100) mmHg ABG HCO3 (22.0-26.0) mmol/L ABG Total CO2 (21.0-29.0) MMOL/L ABG O2 Saturation (94-98) % ABG Base Excess (-2.0-3.0) mmol/L Hema Test VBG pH (7.31-7.41) Ionized Calcium (1.15-1.33) mmol/L O2 Delivery Device O2 Liters/Min LPM FiO2 EPAP cmH2O IPAP cmH2O Sodium (135-145) mmol/L Potassium (3.5-5.0) mmol/L Chloride (101-111) mmol/L Carbon Dioxide (21-32) mmol/L Anion Gap (6-13) BUN (6-20) mg/dL Creatinine (0.4-1.0) mg/dL Estimated GFR (MDRD) (>89) Glucose (70-100) mg/dL Lactic Acid (0.5-2.2) mmol/L Calcium (8.5-10.3) mg/dL Phosphorus (2.5-4.6) mg/dL Magnesium (1.7-2.8) mg/dL Total Bilirubin (0.2-1.0) mg/dL AST (10-42) IU/L ALT (10-60) IU/L Alkaline Phosphatase (42-121) IU/L Troponin I High Sens (2.3-14.8) ng/L B-Natriuretic Peptide 741 H (5-100) pg/mL Total Protein (6.7-8.2) g/dL Albumin (3.2-5.5) g/dL Globulin (2.1-4.2) g/dL Albumin/Globulin Ratio (1.0-2.2) Lipase (22-51) U/L TSH (0.34-5.60) uIU/mL Urine Color YELLOW Urine Clarity HAZY (CLEAR) Urine pH 5.0 (5.0-7.5) PH Ur Specific [place] 1.020 (1.002-1.030) Urine Protein TRACE (NEGATIVE) mg/dL Urine Glucose (UA) NEGATIVE (NEGATIVE) mg/dL Urine Ketones NEGATIVE (NEGATIVE) mg/dL Urine Occult Blood NEGATIVE (NEGATIVE) Urine Nitrite POSITIVE H (NEGATIVE) Urine Bilirubin NEGATIVE (NEGATIVE) Urine Urobilinogen 0.2 (NORMAL) (NORMAL) E.U./dL Ur Leukocyte Esterase TRACE H (NEGATIVE) Urine RBC None Seen (0-5) /HPF Urine WBC >25 H (0-5) /HPF Urine WBC Clumps PRESENT Ur Squamous Epith Cells RARE Squamous (<= Few) Urine Bacteria Many H (None Seen) /HPF Ur Microscopic Review INDICATED Urine Culture Comments INDICATED Nasal Screen MRSA (PCR) (NEGATIVE) Salicylates mg/dL Urine Opiates Screen POSITIVE H (NEGATIVE) Ur Oxycodone Screen POSITIVE H (NEGATIVE) Urine Methadone Screen NEGATIVE (NEGATIVE) Ur Propoxyphene Screen NEGATIVE (NEGATIVE) Acetaminophen (10-30) ug/mL Ur Barbiturates Screen NEGATIVE (NEGATIVE) Ur Tricyclics Screen NEGATIVE (NEGATIVE) Ur Phencyclidine Scrn NEGATIVE (NEGATIVE) Ur Amphetamine Screen NEGATIVE (NEGATIVE) U Methamphetamines Scrn NEGATIVE (NEGATIVE) U Benzodiazepines Scrn NEGATIVE (NEGATIVE) Urine Cocaine Screen NEGATIVE (NEGATIVE) U Cannabinoids Screen NEGATIVE (NEGATIVE) Ethyl Alcohol mg/dL SARS-CoV-2 (PCR) NOT DETECTED 07/15/21 07/15/21 07/15/21 Range/Units 12:30 12:30 12:30 WBC (4.8-10.8) x10^3/uL RBC (4.20-5.40) 10^6/uL Hgb (12.0-16.0) g/dL Hct (37.0-47.0) % MCV (81.0-99.0) fL MCH (27.0-31.0) pg MCHC (32.0-36.0) g/dL RDW (12.0-15.0) % Plt Count (130-450) 10^3/uL MPV (7.9-10.8) fL Neut # (Auto) (1.5-6.6) 10^3/uL Lymph # (Auto) (1.5-3.5) 10^3/uL Potter # (Auto) (0.0-1.0) 10^3/uL Eos # (Auto) (0.0-0.7) 10^3/uL Baso # (Auto) (0.0-0.1) 10^3/uL Absolute Nucleated RBC x10^3/uL Nucleated RBC % /100WBC Bld Gas Analysis Time Sample Site ABG pH (7.35-7.45) ABG pCO2 (34-45) mmHg ABG pO2 (80-100) mmHg ABG HCO3 (22.0-26.0) mmol/L ABG Total CO2 (21.0-29.0) MMOL/L ABG O2 Saturation (94-98) % ABG Base Excess (-2.0-3.0) mmol/L Hema Test VBG pH (7.31-7.41) Ionized Calcium (1.15-1.33) mmol/L O2 Delivery Device O2 Liters/Min LPM FiO2 EPAP cmH2O IPAP cmH2O Sodium 137 (135-145) mmol/L Potassium 4.9 (3.5-5.0) mmol/L Chloride 95 L (101-111) mmol/L Carbon Dioxide 31 (21-32) mmol/L Anion Gap 11.0 (6-13) BUN 33 H (6-20) mg/dL Creatinine 1.9 H (0.4-1.0) mg/dL Estimated GFR (MDRD) 26 L (>89) Glucose 159 H (70-100) mg/dL Lactic Acid (0.5-2.2) mmol/L Calcium 8.3 L (8.5-10.3) mg/dL Phosphorus (2.5-4.6) mg/dL Magnesium (1.7-2.8) mg/dL Total Bilirubin 0.5 (0.2-1.0) mg/dL AST 10 (10-42) IU/L ALT < 10 L (10-60) IU/L Alkaline Phosphatase 103 (42-121) IU/L Troponin I High Sens 58.1 H* (2.3-14.8) ng/L B-Natriuretic Peptide (5-100) pg/mL Total Protein 7.4 (6.7-8.2) g/dL Albumin 3.5 (3.2-5.5) g/dL Globulin 3.9 (2.1-4.2) g/dL Albumin/Globulin Ratio 0.9 L (1.0-2.2) Lipase 124 H (22-51) U/L TSH 2.73 (0.34-5.60) uIU/mL Urine Color Urine Clarity (CLEAR) Urine pH (5.0-7.5) PH Ur Specific [place]alt (1.002-1.030) Urine Protein (NEGATIVE) mg/dL Urine Glucose (UA) (NEGATIVE) mg/dL Urine Ketones (NEGATIVE) mg/dL Urine Occult Blood (NEGATIVE) Urine Nitrite (NEGATIVE) Urine Bilirubin (NEGATIVE) Urine Urobilinogen (NORMAL) E.U./dL Ur Leukocyte Esterase (NEGATIVE) Urine RBC (0-5) /HPF Urine WBC (0-5) /HPF Urine WBC Clumps Ur Squamous Epith Cells (<= Few) Urine Bacteria (None Seen) /HPF Ur Microscopic Review Urine Culture Comments Nasal Screen MRSA (PCR) (NEGATIVE) Salicylates < 4.0 mg/dL Urine Opiates Screen (NEGATIVE) Ur Oxycodone Screen (NEGATIVE) Urine Methadone Screen (NEGATIVE) Ur Propoxyphene Screen (NEGATIVE) Acetaminophen < 10 L (10-30) ug/mL Ur Barbiturates Screen (NEGATIVE) Ur Tricyclics Screen (NEGATIVE) Ur Phencyclidine Scrn (NEGATIVE) Ur Amphetamine Screen (NEGATIVE) U Methamphetamines Scrn (NEGATIVE) U Benzodiazepines Scrn (NEGATIVE) Urine Cocaine Screen (NEGATIVE) U Cannabinoids Screen (NEGATIVE) Ethyl Alcohol < 5.0 mg/dL SARS-CoV-2 (PCR) 07/15/21 Range/Units 12:30 WBC 15.2 H (4.8-10.8) x10^3/uL RBC 3.50 L (4.20-5.40) 10^6/uL Hgb 11.0 L (12.0-16.0) g/dL Hct 37.2 (37.0-47.0) % MCV 106.3 H (81.0-99.0) fL MCH 31.4 H (27.0-31.0) pg MCHC 29.6 L (32.0-36.0) g/dL RDW 16.4 H (12.0-15.0) % Plt Count 224 (130-450) 10^3/uL MPV 8.9 (7.9-10.8) fL Neut # (Auto) 13.4 H (1.5-6.6) 10^3/uL Lymph # (Auto) 0.8 L (1.5-3.5) 10^3/uL Potter # (Auto) 0.9 (0.0-1.0) 10^3/uL Eos # (Auto) 0.0 (0.0-0.7) 10^3/uL Baso # (Auto) 0.1 (0.0-0.1) 10^3/uL Absolute Nucleated RBC 0.00 x10^3/uL Nucleated RBC % 0.0 /100WBC Bld Gas Analysis Time Sample Site ABG pH (7.35-7.45) ABG pCO2 (34-45) mmHg ABG pO2 (80-100) mmHg ABG HCO3 (22.0-26.0) mmol/L ABG Total CO2 (21.0-29.0) MMOL/L ABG O2 Saturation (94-98) % ABG Base Excess (-2.0-3.0) mmol/L Hema Test VBG pH (7.31-7.41) Ionized Calcium (1.15-1.33) mmol/L O2 Delivery Device O2 Liters/Min LPM FiO2 EPAP cmH2O IPAP cmH2O Sodium (135-145) mmol/L Potassium (3.5-5.0) mmol/L Chloride (101-111) mmol/L Carbon Dioxide (21-32) mmol/L Anion Gap (6-13) BUN (6-20) mg/dL Creatinine (0.4-1.0) mg/dL Estimated GFR (MDRD) (>89) Glucose (70-100) mg/dL Lactic Acid (0.5-2.2) mmol/L Calcium (8.5-10.3) mg/dL Phosphorus (2.5-4.6) mg/dL Magnesium (1.7-2.8) mg/dL Total Bilirubin (0.2-1.0) mg/dL AST (10-42) IU/L ALT (10-60) IU/L Alkaline Phosphatase (42-121) IU/L Troponin I High Sens (2.3-14.8) ng/L B-Natriuretic Peptide (5-100) pg/mL Total Protein (6.7-8.2) g/dL Albumin (3.2-5.5) g/dL Globulin (2.1-4.2) g/dL Albumin/Globulin Ratio (1.0-2.2) Lipase (22-51) U/L TSH (0.34-5.60) uIU/mL Urine Color Urine Clarity (CLEAR) Urine pH (5.0-7.5) PH Ur Specific [place] (1.002-1.030) Urine Protein (NEGATIVE) mg/dL Urine Glucose (UA) (NEGATIVE) mg/dL Urine Ketones (NEGATIVE) mg/dL Urine Occult Blood (NEGATIVE) Urine Nitrite (NEGATIVE) Urine Bilirubin (NEGATIVE) Urine Urobilinogen (NORMAL) E.U./dL Ur Leukocyte Esterase (NEGATIVE) Urine RBC (0-5) /HPF Urine WBC (0-5) /HPF Urine WBC Clumps Ur Squamous Epith Cells (<= Few) Urine Bacteria (None Seen) /HPF Ur Microscopic Review Urine Culture Comments Nasal Screen MRSA (PCR) (NEGATIVE) Salicylates mg/dL Urine Opiates Screen (NEGATIVE) Ur Oxycodone Screen (NEGATIVE) Urine Methadone Screen (NEGATIVE) Ur Propoxyphene Screen (NEGATIVE) Acetaminophen (10-30) ug/mL Ur Barbiturates Screen (NEGATIVE) Ur Tricyclics Screen (NEGATIVE) Ur Phencyclidine Scrn (NEGATIVE) Ur Amphetamine Screen (NEGATIVE) U Methamphetamines Scrn (NEGATIVE) U Benzodiazepines Scrn (NEGATIVE) Urine Cocaine Screen (NEGATIVE) U Cannabinoids Screen (NEGATIVE) Ethyl Alcohol mg/dL SARS-CoV-2 (PCR) Impression and Recommendations - Palliative Care Impression: This is a 70-year-old woman with metastatic lung cancer, with recent progression, pending next treatment when available. Patient has had functional decline, presented recently with exacerbation of COPD in the context of lower extremity edema, crackles, hypoxia and worsening shortness of breath. Patient has long-term had high symptom burden of severe peripheral neuropathy, which had exacerbated by edema. Patient currently hospitalized acutely, patient denies any suicidal ideation or self-harm. Palliative care continue provide support for pain and symptom management, psychosocial support and counseling for antic ipatory guidance, consulted today for clarification of goals of care. Recommendations/Counseling Done: 1. Advanced care planning. Patient's goals continue remain to focus on quality of life, she is hoping to continue treatment. She does understand the seriousness of her illness, her 2 biggest goals have been to extend quantity of life to be present for Juan Ramon, as well as remain independent. Patient does have a POLST with DN AR/DNI and selective treatments. Discussed with patient BiPAP versus ventilatory support, pain after much discussion regarding outcomes of th is, patient is accepting of BiPAP if needed, declines ventilatory support with intubation when discussed in the context of outcomes. 2. Chemotherapy-induced peripheral neuropathy. This is multifactorial, patient has diabetes, she has been on gabapentin long-term. She had been taking a total of 1200 mg, divided in a series of different ways. Did streamlining this to 600 mg tabs 1 twice daily. Patient felt gabapentin helped more than opioid, unfortunately had switch from oxycodone to hydrocodone/acetaminophen secondary to patient's perception of pruritus, which did not diminish. She still was using intermittently 2-3 times a day, but had cut back further per last conversation. Follow-up with hospitalist, has been on hold appropriately secondary to patient's altered mental status, concern for patient's withdrawal symptoms, given long-term use. 3. Depression. This is been fluctuating, she does feel overwhelmed with her worsening status, and the process around her co-pays. She reports she did get a letter of acceptance, and now is distressed that her treatment is still being delayed yet more. I did call and leave a message for her roommate to bring the paperwork in, as well as reached out to the [facility] that patient believes she has been approved and would like to move forward in getting prescription. I did review with her though patient needs to recover from her acute episode before we start her on her treatment which is somewhat toxic, will need to go ahead and order and implement based on benefits and burdens given her recovery time. 45 minutes with greater than 50% of this done in counseling regarding goals of care, current situation, coordination of care with hospitalist and communication with hospital team.
[2021-07-16] MEDS: ESCITALOPRAM 10 MG TABLET PO SCH (12:06)
[2021-07-16] MEDS: GABAPENTIN 300 MG CAPSULE PO SCH ×2 (12:06→20:11)
[2021-07-16] MEDS: HYDROcod/ACETAM 5/325 MG TABLET PO PRN ×2 (14:12→20:10)
[2021-07-16] MEDS: MIN OIL/DIMETHICON/COCONUT OIL 92 GM TUBE TOP PRN (23:11)
[2021-07-17 05:36] LABS: BASOPHILS % (AUTO) 0.4 %; CALCIUM, IONIZED 1.04 mmol/L (1.15-1.33); EOSINOPHILS # (AUTO) 0.1 10^3/uL (0.0-0.7); EOSINOPHILS % (AUTO) 1.7 %; HCT - HEMATOCRIT 29.3 % (37.0-47.0); HGB - HEMOGLOBIN 8.7 g/dL (12.0-16.0); LYMPHOCYTES # (AUTO) 1.3 10^3/uL (1.5-3.5); LYMPHOCYTES % (AUTO) 17.3 %; MEAN CORPUSCULAR HEMOGLOBIN 31.4 pg (27.0-31.0); MEAN CORPUSCULAR HGB CONC 29.7 g/dL (32.0-36.0); MEAN CORPUSCULAR VOLUME 105.8 fL (81.0-99.0); MEAN PLATELET VOLUME 8.9 fL (7.9-10.8); MONOCYTES # (AUTO) 0.5 10^3/uL (0.0-1.0); MONOCYTES % (AUTO) 7.1 %; NEUTROPHILS # (AUTO) 5.5 10^3/uL (1.5-6.6); NEUTROPHILS % (AUTO) 72.6 %; NRBC ABSOLUTE COUNT (AUTO) 0.02 x10^3/uL; NUCLEATED RED BLOOD CELLS AUTO 0.3 /100WBC; PLT - PLATELET COUNT 176 10^3/uL (130-450); RED BLOOD COUNT 2.77 10^6/uL (4.20-5.40); VBG PH 7.359 (7.31-7.41); WHITE BLOOD COUNT 7.6 x10^3/uL (4.8-10.8)
[2021-07-17 05:47] LABS: CALCIUM 7.7 mg/dL (8.5-10.3); CREATININE 1.4 mg/dL (0.4-1.0); PHOSPHORUS 4.9 mg/dL (2.5-4.6); POTASSIUM 4.4 mmol/L (3.5-5.0)
[2021-07-17] MEDS: PANTOPRAZOLE 40 MG TABLET PO SCH (06:28)
[2021-07-17] MEDS: LEVOTHYROXINE 75 MCG TABLET PO SCH (06:28)
[2021-07-17] MEDS: CALCIUM CARBONATE CHEW 500 MG TABLET PO SCH ×2 (06:28→10:45)
[2021-07-17] MEDS ORDERED: FERROUS SULFATE 325 MG TABLET PO SCH (08:00)
[2021-07-17] MEDS: cefTRIAXone 1 GM in SODIUM CHLORIDE 0.9% MINIBAG 100 ML IV SCH (08:05)
[2021-07-17] MEDS: GABAPENTIN 300 MG CAPSULE PO SCH ×2 (08:06→20:49)
[2021-07-17] MEDS: ESCITALOPRAM 10 MG TABLET PO SCH (08:06)
[2021-07-17] MEDS: FUROSEMIDE 40 MG/4 ML VIAL IVP SCH (08:06)
[2021-07-17] MEDS: HEPARIN 5,000 UNIT/ML VIAL SUBQ SCH ×2 (08:07→20:49)
[2021-07-17] MEDS: METOPROLOL SUCCINATE 25 MG TABLET PO SCH (08:10)
[2021-07-17] MEDS: polyethylene glycoL 3350 17 GM PACKET PO SCH (08:11)
[2021-07-17] MEDS: NICOTINE 21 MG PATCH TOP SCH (08:11)
[2021-07-17] MEDS: SODIUM CHLORIDE FLUSH 0.9% 10 ML SYRINGE IVP SCH ×3 (08:12→20:52)
[2021-07-17] MEDS: CEFPODOXIME PROXETIL 100 MG TABLET PO SCH ×2 (10:45→20:48)
--- NOTE | 2021-07-17 10:53 | PROVIDER PROGRESS NOTE ---
Subjective - Prog Note Date Prog Note Date: 07/17/21 - Subjective Subjective: She states this is the best she has felt in weeks. Still feels short of breath but this is significantly improved. Her lower extremity edema is improved overall but still present. She really would like to go home as soon as possible. Current Medications - Current Medications Current Medications: Active Medications Acetaminophen (Acetaminophen 325 Mg Tablet) 650 mg PO Q4HR PRN PRN Reason: Pain 1 to 4, or Fever Hydrocodone Bitart/Acetaminophen (Hydrocod/Acetam 5/325 Mg Tablet) 1 tab PO TID PRN PRN Reason: PAIN Last Admin: 07/16/21 20:10 Dose: 1 tab Cefuroxime Axetil (Cefpodoxime Proxetil 100 Mg Tablet) 100 mg PO BID [facility] Last Admin: 07/17/21 10:45 Dose: Not Given Escitalopram Oxalate (Escitalopram 10 Mg Tablet) 10 mg PO DAILY [facility] Last Admin: 07/17/21 08:06 Dose: 10 mg Ferrous Gluconate (Ferrous Gluconate 324 Mg Tablet) 324 mg PO QDLUNCH [facility] Last Admin: 07/17/21 11:55 Dose: 324 mg Furosemide (Furosemide 40 Mg/4 Ml Vial) 40 mg IVP DAILY [facility] Last Admin: 07/17/21 08:06 Dose: 40 mg Gabapentin (Gabapentin 300 Mg Capsule) 300 mg PO BID [facility] Last Admin: 07/17/21 08:06 Dose: 300 mg Heparin Sodium (Porcine) (Heparin 5,000 Unit/Ml Vial) 5,000 unit SUBQ BID [facility] Last Admin: 07/17/21 08:07 Dose: 5,000 unit Levothyroxine Sodium (Levothyroxine 75 Mcg Tablet) 75 mcg PO QDAC [facility] Last Admin: 07/17/21 06:28 Dose: 75 mcg Metoprolol Succinate (Metoprolol Succinate 25 Mg Tablet) 25 mg PO DAILY [facility] Last Admin: 07/17/21 08:10 Dose: 25 mg Mineral Oil (Min Oil/Dimethicon/Coconut Oil 92 Gm Tube) 1 applic TOP PRN PRN PRN Reason: Skin Care Last Admin: 07/16/21 23:11 Dose: 1 applic Nicotine (Nicotine 21 Mg Patch) 1 patch TOP DAILY [facility] Last Admin: 07/17/21 08:11 Dose: 1 patch Ondansetron HCl (Ondansetron Odt 4 Mg Tablet) 4 mg TL Q6HR PRN PRN Reason: Nausea / Vomiting Ondansetron HCl (Ondansetron 4 Mg/2 Ml Vial) 4 mg IVP Q6HR PRN PRN Reason: Nausea / Vomiting Pantoprazole Sodium (Pantoprazole 40 Mg Tablet) 40 mg PO QDAC [facility] Last Admin: 07/17/21 06:28 Dose: 40 mg Polyethylene Glycol (Polyethylene Glycol 3350 17 Gm Packet) 17 gm PO DAILY [facility] Last Admin: 07/17/21 08:11 Dose: 17 gm Sodium Chloride (Sodium Chloride Flush 0.9% 10 Ml Syringe) 10 ml IVP 0100,0900,1700 [facility] Last Admin: 07/17/21 08:12 Dose: 10 ml Sodium Chloride (Sodium Chloride Flush 0.9% 10 Ml Syringe) 10 ml IVP PRN PRN PRN Reason: NEEDED PER PROVIDER ORDERS Last Admin: 07/16/21 05:41 Dose: 10 ml Simvastatin 80 mg PO DAILY 04/27/15 Levothyroxine [Synthroid] 75 mcg PO DAILY 10/04/18 Zolpidem [Ambien] 10 mg ORAL QPM PRN 04/18/19 Albuterol Sulfate [Proair Hfa Inhaler] 2 puffs INH Q4HR PRN 05/30/19 polyethylene glycoL 3350 [Miralax] 8.5 - 17 mg PO DAILY PRN 01/09/20 Gabapentin 600 mg PO BID 02/06/20 Omeprazole 40 mg PO DAILY 07/23/20 Folic Acid 1 mg PO DAILY 10/08/20 Metoprolol Succinate [Toprol Xl] 25 mg PO DAILY 11/13/20 Furosemide [Lasix] 20 mg PO DAILY 11/26/20 Ferrous Gluconate 324 mg PO DAILY 05/27/21 HYDROcod/ACETAM 5/325 [[place] 5/325] 1 - 2 tab PO TID PRN 05/27/21 Sotorasib [Lumakras] 960 mg PO DAILY MDD not started yet 06/25/21 Objective - Vital Signs/Intake & Output Reviewed Vital Signs: Yes Vital Signs: Vital Signs x48h Temp Pulse Resp BP Pulse Ox 07/17/21 07:40 37.3 C 80 20 109/59 L 94 07/17/21 05:05 37.2 C 102 H 16 112/51 L 90 L Intake & Output: Intake & Output 07/14/21 07/15/21 07/16/21 07/17/21 23:59 23:59 23:59 23:59 Intake Total 2166.105 5735.333 1270 Output Total 0 2490 1230 Balance 0178.643 3518.333 40 - Objective General Appearance: positive: No acute distress, Alert Eyes Bilateral: positive: Normal inspection ENT: positive: ENT inspection nml, Other (Nasal cannula in place.) Neck: positive: Nml inspection Respiratory: positive: No respiratory distress, Rales, Other (Diminished in bases.). negative: Wheezes Cardiovascular: positive: Regular rate & rhythm, No murmur. negative: Tachycardia Skin: positive: Warm, Dry Extremities: positive: Pedal edema (+1 edema in bilateral lower extremities.) Neurologic/Psychiatric: negative: Disoriented to person, Disoriented to place - Lab Results Fish Bones: 07/17/21 05:29 07/17/21 05:29 Other Labs: Lab Results x24hrs 07/17/21 07/17/21 07/17/21 Range/Units 05:29 05:29 05:29 WBC 7.6 (4.8-10.8) x10^3/uL RBC 2.77 L (4.20-5.40) 10^6/uL Hgb 8.7 L (12.0-16.0) g/dL Hct 29.3 L (37.0-47.0) % MCV 105.8 H (81.0-99.0) fL MCH 31.4 H (27.0-31.0) pg MCHC 29.7 L (32.0-36.0) g/dL RDW 16.0 H (12.0-15.0) % Plt Count 176 (130-450) 10^3/uL MPV 8.9 (7.9-10.8) fL Neut # (Auto) 5.5 (1.5-6.6) 10^3/uL Lymph # (Auto) 1.3 L (1.5-3.5) 10^3/uL [place] # (Auto) 0.5 (0.0-1.0) 10^3/uL Eos # (Auto) 0.1 (0.0-0.7) 10^3/uL Baso # (Auto) 0.0 (0.0-0.1) 10^3/uL Absolute Nucleated RBC 0.02 x10^3/uL Nucleated RBC % 0.3 /100WBC VBG pH 7.359 (7.31-7.41) Ionized Calcium 1.04 L (1.15-1.33) mmol/L Sodium 133 L (135-145) mmol/L Potassium 4.4 (3.5-5.0) mmol/L Chloride 94 L (101-111) mmol/L Carbon Dioxide 29 (21-32) mmol/L Anion Gap 10.0 (6-13) BUN 32 H (6-20) mg/dL Creatinine 1.4 H (0.4-1.0) mg/dL Estimated GFR (MDRD) 37 L (>89) Glucose 101 H (70-100) mg/dL Calcium 7.7 L (8.5-10.3) mg/dL Phosphorus 4.9 H (2.5-4.6) mg/dL Magnesium 2.0 (1.7-2.8) mg/dL ABX Reporting Has patient been on IV antibiotics over the past 48 hours?: Yes Assessment/Plan - Problem List (1) Acute respiratory failure with hypoxia and hypercapnia Impression: This is significantly improved and was the cause of her encephalopathy on admission. This is felt to be secondary to exacerbation of her heart failure rather than COPD. She has not required BiPAP now for more than 24 hours. She is still hypoxic requiring 2 L of oxygen and I suspect he will need oxygen on discharge. She was previously on nocturnal oxygen but will need it throughout the day. We will diurese her again today with 40 mg of IV Lasix and switch her to oral diuretics tomorrow. She did insist on going home today but after discussion with her, she was reluctantly agreeable to staying 1 more day. We will perform an exercise desaturation's test prior to discharge tomorrow. (2) Suspected CHF (congestive heart failure) Impression: Suspect she may have a component of diastolic heart failure given the lower extremity edema, elevated BNP. She has responded well to IV diuresis. We are fortunate do not have echocardiogram available so cannot assess her LV function. This will be done on an outpatient basis. We will give another day of IV diuretics and switch her to oral diuretics tomorrow anticipation of discharge. The patient did prefer to go home today but was reluctantly agreeable to stay 1 more day for this. We will increase her home Lasix on discharge to 40 mg. We did order a duplex today which was negative for DVT. (3) Elevated troponin Impression: Her troponins peaked at a little over 200. Unfortunately do not have echocardiogram to assess wall motion abnormalities but I suspect this is likely demand ischemia due to the acute hypoxic and hypercapnic respiratory failure. She has been chest pain-free and her EKG does not suggest ischemia. Continue aspirin, beta-best, statin. An outpatient stress test can be considered based off of her overall prognosis with regards to her lung cancer. (4) UTI (urinary tract infection) Impression: Urine cultures are still pending but they are going to gram-negative organisms. We have switched her to oral Vantin to complete 5 days of therapy. Qualifiers: Urinary tract infection type: acute cystitis Hematuria presence: without hematuria Qualified Code(s): N30.00 - Acute cystitis without hematuria (5) COPD (chronic obstructive pulmonary disease) Impression: She does have COPD and continues to smoke on a daily basis. She is only on albuterol as needed at home. I will prescribe her Tiotropium on discharge and to continue with albuterol as needed. I will talk with respiratory therapy abo ut getting her a nebulizer machine at home. (6) Metastatic non-small cell lung cancer Impression: This is an ongoing problem for her. She will follow up with oncology on discharge. The plan is to start a new therapy this Wednesday. (7) Chronic kidney disease Impression: Her creatinine is back to her baseline of around 1.4. She had mild acute kidney injury on admission. Her renal functions been stable with diuresis. We will switch her to oral Lasix tomorrow in preparation for discharge. Qualifiers: Chronic kidney disease stage: stage 3 (moderate) (8) Peripheral neuropathy Impression: Continue gabapentin. (9) Encephalopathy Impression: This was secondary to CO2 narcosis and has resolved. She has been doing well without the use of BiPAP.
[2021-07-17] MEDS ORDERED: FERROUS GLUCONATE 324 MG TABLET PO SCH (12:00)
[2021-07-17 14:03] LABS: CALCIUM, IONIZED 1.05 mmol/L (1.15-1.33); VBG PH 7.334 (7.31-7.41)
--- NOTE | 2021-07-17 15:55 | Ultrasound Report ---
PROCEDURE: Duplex Ext Veins Bilateral INDICATIONS: Lower extremity edema TECHNIQUE: Real-time imaging, as well as color and pulse Doppler interrogation, were performed of the deep veins of both legs from the inguinal ligament to the popliteal fossa. COMPARISON: FINDINGS: The deep veins are normally compressible, and free of intraluminal thrombus. Color and pu lse Doppler demonstrate normal phasic intravascular flow. There is normal augmentation response to d istal compression maneuver. IMPRESSION: No deep venous thrombosis. Reviewed by: Mikayla Briseno MD on 07/17/2021 3:54 PM PDT Approved by: Mikayla Briseno MD on 07/17/2021 3:54 PM PDT Station ID: [id number]
[2021-07-17] MEDS ORDERED: ATORVASTATIN 40 MG TABLET PO SCH (21:00)
[2021-07-18 04:16] LABS: BASOPHILS % (AUTO) 0.5 %; EOSINOPHILS # (AUTO) 0.2 10^3/uL (0.0-0.7); EOSINOPHILS % (AUTO) 2.7 %; HCT - HEMATOCRIT 29.3 % (37.0-47.0); HGB - HEMOGLOBIN 8.5 g/dL (12.0-16.0); LYMPHOCYTES # (AUTO) 1.1 10^3/uL (1.5-3.5); LYMPHOCYTES % (AUTO) 19.9 %; MEAN CORPUSCULAR HEMOGLOBIN 30.6 pg (27.0-31.0); MEAN CORPUSCULAR VOLUME 105.4 fL (81.0-99.0); MEAN PLATELET VOLUME 9.5 fL (7.9-10.8); MONOCYTES # (AUTO) 0.5 10^3/uL (0.0-1.0); MONOCYTES % (AUTO) 8.9 %; NEUTROPHILS # (AUTO) 3.8 10^3/uL (1.5-6.6); NEUTROPHILS % (AUTO) 67.5 %; PLT - PLATELET COUNT 187 10^3/uL (130-450); RED BLOOD COUNT 2.78 10^6/uL (4.20-5.40); RED CELL DISTRIBUTION WIDTH 15.9 % (12.0-15.0); WHITE BLOOD COUNT 5.6 x10^3/uL (4.8-10.8)
[2021-07-18 04:17] LABS: CALCIUM, IONIZED 1.03 mmol/L (1.15-1.33); VBG PH 7.404 (7.31-7.41)
[2021-07-18 04:27] LABS: CALCIUM 7.8 mg/dL (8.5-10.3); CREATININE 1.4 mg/dL (0.4-1.0); MAGNESIUM 2.1 mg/dL (1.7-2.8); PHOSPHORUS 3.3 mg/dL (2.5-4.6); POTASSIUM 4.1 mmol/L (3.5-5.0)
[2021-07-18] MEDS: LEVOTHYROXINE 75 MCG TABLET PO SCH (06:46)
[2021-07-18] MEDS: PANTOPRAZOLE 40 MG TABLET PO SCH (06:46)
--- NOTE | 2021-07-18 07:37 | Discharge Plan ---
Discharge Plan Problem Reviewed?: Yes Disposition: Home Health Service Condition: Stable Prescriptions: Furosemide [Lasix] 40 mg PO DAILY #30 tablet Tiotropium [place] [Spiriva] 1 puffs INH DAILY 30 Days #1 each Aspirin [place] [[place] Aspirin] 81 mg PO DAILY #30 tablet Simvastatin [Zocor] 80 mg PO HS #30 tablet Diet: Low Sodium Activity Restrictions: Activity as Tolerated Assistance Devices: Walker Instruction Topics: Tiotropium inhalation powder, Furosemide tablets, Aspirin ASA oral tablets Health Concerns: You are admitted to the hospital because you are found to be unresponsive. This was due to elevated carbon dioxide in your blood which likely occurred due to your difficulty breathing. He likely had difficulty breathing because of too much fluid around her lungs. We gave you Lasix through an IV to help remove this fluid and you are now feeling much better. We will be increasing her home dose of Lasix to 40 mg once a day. You were previously using oxygen just at night but you will need oxygen throughout the day as well. You will need 2L of oxygen at rest and 4L with activity. Plan of Treatment: Please begin to take Lasix 40 mg once a day instead of 20 mg once a day. A new prescription was sent for you. I recommend that you use your nebulizer every 4 hours as needed. I also recommend that you begin taking a baby aspirin a day Both of these prescriptions were sent to your pharmacy. This is because your heart numbers were a little bit elevated during this hospitalization which was likely due to stress on your heart from your difficulty breathing. You may potentially have underlying heart disease so we recommend taking the aspirin and Lipitor. A stress test can be considered on an outpatient basis. Please begin to take Spiriva once a day. This is an inhaler to help treat your COPD. You can continue with the albuterol as needed. If the Spiriva is too expensive then please let us know and we can prescribe another inhaler. Assessment: The patient expressed understanding of the treatment plan. Additional Instructions or Follow Up instructions: Please follow-up with your oncologist next Wednesday as scheduled to initiate the new therapy for your lung cancer. Please follow-up with Harini Cuadra next week. Please return to the emergency department if you develop chest pain, difficulty breathing, worsening leg swelling or bleeding. Follow-Up Care: [facility] - Pulmonary, Home Health - PT, Home Health - OT No Smoking: If you smoke, Please STOP! Call for help.
--- NOTE | 2021-07-18 07:37 | DISCHARGE SUMMARY ---
"Discharge Summary Admit Date: 07/15/21 Discharge Date: 07/18/21 Discharging Provider: Emiliano Kennedy Primary Care Provider: Andres Mancera Code Status: Do Not Attempt Resuscitation Condition at Discharge: Stable Discharge Disposition: Home Health Service - DIAGNOSES Admission Diagnoses: Encephalopathy Acute respiratory failure with hypoxia Overdose Elevated troponin UTI Metastatic non-small cell lung cancer Chronic kidney disease stage III Discharge Diagnoses with Status of Each Condition: Acute on chronic respiratory failure with hypoxia and hypercapnia - improved. Suspected CHF - stable. Elevated troponin - improved. Asymptomatic bacteriuria - resolved. COPD - stable. Metastatic non-small cell lung cancer - stable. Chronic kidney disease stage III - stable. Peripheral neuropathy - stable. - HPI History of Present Illness: This is a 70-year-old female with a past medical history significant for COPD, metastatic non-small cell lung cancer, peripheral neuropathy, CKD stage III who presents today after being found unresponsive by her friend. History is obtained from the emergency department physician as the patient is unable to provide a history. She was reportedly found down at home by her friend today with empty pill bottles next to her. It is unclear what these pill bottles were as they did not accompany the patient. I spoke with palliative care, Harini Cuadra, who tells me that the patient recently received poor news regarding her lung cancer and that it will has been progressing despite therapy with nivolumab. She was scheduled to start sotorasib but this has been delayed due to cost. Harini Cuadra also informed me the patient was hypoxic on her evaluation a few days ago saturating 88%. The patient declined evaluation and Harini Cuadra increased her Lasix to 40 mg for a few days. She noted that her legs were more edematous than usual as well during that visit. I was later able to speak with her POA, Olivia, who informs me that the patient has been com plaining of lower extremity edema over the past few days and has been a little more depressed than usual but did not have any suicidal thoughts or ideations. She last saw the patient yesterday evening and she was in her usual state of health. The patient did have an empty bottle of narcotics next her but she reports that they were barely any pills left so that he does not think that she overdosed on the opiates. Here in the emergency department, CT of the head showed no acute abnormalities. She was given Narcan with minimal improvement. A nasopharyngeal airway was placed and medicine was consulted for admission. I discussed goals of care with the patient's POA and she feels that the patient would be okay with mechanical ventilation as long as it was temporary. She would not want prolonged mechanical ventilation. Her POLST form states that she is a DNR with limited interventions but her POA feels that mechanical inhalation would be okay - CONSULTS | PROCEDURES Consultations: Palliative Care, PT/OT - HOSPITAL COURSE Hospital Course: She was admitted to the ICU for encephalopathy which is thought may be due to an incidental overdose on her narcotics. We obtained an ABG which revealed hypercapnia and so she was placed on BiPAP. She had improvement in her mentation after the use of BiPAP. She denied taking her medications incorrectly and she denied any suicidal thoughts or ideations. It was thought that she may have been hypercapnic due to heart failure exacerbation given she had progressi ve lower extremity edema. She was diuresed with Lasix 40 mg IV daily. Her lower extremity edema improved. We could not obtain echocardiogram as we do not have this service available. We then transition her to oral diuretics. We did obtain a duplex of her lower extremities to look for DVT given her history of lung cancer but this was negative. The patient preferred to be discharged home immediately after she was awake but was reluctantly agreeable to remaining hospitalized for one more day for further diuresis. We performed an exercise desaturation test prior to discharge and it revealed the patient needed 2 L of oxygen at rest and 4 L with activity. We are therefore ordering 2 L of oxygen at rest and 4 L with activity to treat her underlying COPD. She was already on nocturnal oxygen prior to this hospitalization. She was seen by palliative care during this hospitalization and they will follow up with her in 1 week after discharge. The patient will also be following up with her oncologist this Wednesday to start chemotherapy for her metastatic lung cancer. During this hospitalization, she also had mild acute kidney injury which improved with diuresis. There was concern she may have had a UTI initially and to start on ceftriaxone IV. Urine culture independently less than 50,000 colonies and grew ESBL e. coli. The patient initially reported vague symptoms but this had resolved despite inadequate treatment given she was on ceftriaxone. It was felt that this was just asymptomatic bacteriuria. She was also noted to have an elevated troponin at greater than 200 which is felt to be demand ischemia due to her respiratory failure. She was discharged on aspirin and ask ed to continue her statin. An outpatient stress test was recommended if this is within goals of care given she is actively undergoing treatment for her lung cancer. The patient was seen by PT/OT and SNF versus home health was recommended. The patient declined going to a SNF and so home health referral was made. We also recommended pulmonary rehab but the patient was hesitant about pursuing this. - ALLERGIES Allergies/Adverse Reactions: Allergies Allergy/AdvReac Type Severity Reaction Status Date / Time No Known Drug Allergies Allergy Verified 12/10/20 10:26 - MEDICATIONS Home Medications: Ambulatory Orders Medication Instructions Recorded Confirmed Levothyroxine [Synthroid] 75 mcg PO DAILY 10/04/18 07/15/21 Zolpidem [Ambien] 10 mg ORAL QPM PRN 04/18/19 07/15/21 Albuterol Sulfate [Proair Hfa 2 puffs INH Q4HR PRN 05/30/19 07/15/21 Inhaler] polyethylene glycoL 3350 [Miralax] 8.5 - 17 mg PO DAILY PRN 01/09/20 07/15/21 Gabapentin 600 mg PO BID 02/06/20 07/15/21 Omeprazole 40 mg PO DAILY 07/23/20 07/15/21 Folic Acid 1 mg PO DAILY 10/08/20 07/15/21 Metoprolol Succinate [Toprol Xl] 25 mg PO DAILY 11/13/20 07/15/21 Escitalopram [Lexapro] 10 mg PO DAILY #90 tablet 03/03/21 07/15/21 Ferrous Gluconate 324 mg PO DAILY 05/27/21 07/15/21 HYDROcod/ACETAM 5/325 [[place] 5/325] 1 - 2 tab PO TID PRN 05/27/21 07/15/21 Sotorasib [Lumakras] 960 mg PO DAILY MDD not started yet 06/25/21 07/15/21 Ondansetron Odt [Zofran Odt] 4 mg TL Q6H PRN #30 tab 06/30/21 07/15/21 Aspirin Chewable [[place] 81 mg PO DAILY #30 tablet 07/18/21 Aspirin] Furosemide [Lasix] 40 mg PO DAILY #30 tablet 07/18/21 Simvastatin [Zocor] 80 mg PO HS #30 tablet 07/18/21 Tiotropium [place] [Spiriva] 1 puffs INH DAILY 30 Days #1 each 07/18/21 - PHYSICAL EXAM AT DISCHARGE General Appearance: positive: No acute distress, Alert Eyes Bilateral: positive: Normal inspection, Conjunctivae nml ENT: positive: ENT inspection nml, Other (Nasal cannula in place.) Neck: positive: Trachea midline Respiratory: positive: No respiratory distress, Other (Diminished in bases.). negative: Wheezes, Rales Cardiovascular: positive: Regular rate & rhythm, No murmur. negative: Tachycardia Abdomen: positive: Non-tender, Nml bowel sounds. negative: No distention Skin: positive: Warm, Dry Extremities: positive: Pedal edema (+1 edema in her bilateral lower extremities.) Neurologic/Psychiatric: positive: Motor nml. negative: Disoriented to person, Disoriented to place Physical Exam Other/Comments: Vital Signs - 24 hr 07/17/21 07/17/21 07/18/21 20:33 23:53 05:00 Temperature 37.0 C Heart Rate [ Apical] Heart Rate [ 77 80 86 Monitoring electrodes] Respiratory 18 20 22 Rate Blood Pressure 122/56 L 114/74 127/62 [Right Brachial artery] O2 Saturation 93 92 91 L 07/18/21 07/18/21 08:42 11:15 Temperature 36.7 C 37.1 C Heart Rate [ 72 Apical] Heart Rate [ 76 Monitoring electrodes] Respiratory 24 22 Rate Blood Pressure 136/63 H 144/63 H [Right Brachial artery] O2 Saturation 94 97 Oxygen O2 Source Nasal cannula Oxygen Flow Rate 7 - LABS Result Diagrams: 07/18/21 04:06 07/18/21 04:06 - DIAGNOSTIC IMAGING Diagnostic Imaging Results: Final report reviewed - FOLLOW UP Follow Up: She will be following up with oncology and 3 days and she will be seeing palliative care in 1 week. She was also encouraged to follow-up with her primary care physician in 1 to 2 weeks. - TIME SPENT Time Spent in Discharge (Minutes): 32"
[2021-07-18] MEDS ORDERED: FUROSEMIDE 40 MG TABLET PO SCH (09:00)
[2021-07-18] MEDS ORDERED: ASPIRIN CHEW 81 MG TABLET PO SCH (09:00)
[2021-07-18] MEDS: GABAPENTIN 300 MG CAPSULE PO SCH (09:17)
[2021-07-18] MEDS: METOPROLOL SUCCINATE 25 MG TABLET PO SCH (09:17)
[2021-07-18] MEDS: ESCITALOPRAM 10 MG TABLET PO SCH (09:17)
[2021-07-18] MEDS: polyethylene glycoL 3350 17 GM PACKET PO SCH (09:18)
[2021-07-18] MEDS: NICOTINE 21 MG PATCH TOP SCH (09:24)
[2021-07-18] MEDS: HEPARIN 5,000 UNIT/ML VIAL SUBQ SCH (09:24)
[2021-07-18] MEDS: MIN OIL/DIMETHICON/COCONUT OIL 92 GM TUBE TOP PRN (10:08)
[2021-07-18 11:55] VITALS: BP 144/63
== END 2021-07-18 12:10 | disposition home health service (06) | DRG 189 ==
LOC: EDUNIT# → ED 12:07 → ICU 13:55 → OBSVTOIN 17:57
PROVIDERS: ADMIT Internal Medicine; ATTEND Internal Medicine
DX: J96.01 Acute respiratory failure with hypoxia (principal); T50.904A Poisoning by unspecified drugs, medicaments and biological substances, undetermined, initial encounter; N30.00 Acute cystitis without hematuria; J96.22 Acute and chronic respiratory failure with hypercapnia; G93.40 Encephalopathy, unspecified; C34.90 Malignant neoplasm of unspecified part of unspecified bronchus or lung; I13.0 Hypertensive heart and chronic kidney disease with heart failure and stage 1 through stage 4 chronic kidney disease, or unspecified chronic kidney disease; I12.9 Hypertensive chronic kidney disease with stage 1 through stage 4 chronic kidney disease, or unspecified chronic kidney disease; I50.30 Unspecified diastolic (congestive) heart failure; N17.9 Acute kidney failure, unspecified; J96.21 Acute and chronic respiratory failure with hypoxia; R32 Unspecified urinary incontinence; J43.9 Emphysema, unspecified; R77.8 Other specified abnormalities of plasma proteins; F17.210 Nicotine dependence, cigarettes, uncomplicated; G62.0 Drug-induced polyneuropathy; Z20.822 Contact with and (suspected) exposure to COVID-19; T45.1X5A Adverse effect of antineoplastic and immunosuppressive drugs, initial encounter; E11.42 Type 2 diabetes mellitus with diabetic polyneuropathy; F32.A Depression, unspecified; N18.30 Chronic kidney disease, stage 3 unspecified; E11.22 Type 2 diabetes mellitus with diabetic chronic kidney disease; Z66 Do not resuscitate; Z51.5 Encounter for palliative care; R82.71 Bacteriuria; I25.2 Old myocardial infarction; E03.9 Hypothyroidism, unspecified; F41.9 Anxiety disorder, unspecified; Z95.5 Presence of coronary angioplasty implant and graft
CPT/HCPCS: 36415; 36600; 51701; 70450; 71045; 80048; 80053; 80306; 80307; 81001; 81599; 82330; 82803; 83605; 83690; 83735; 83880; 84100; 84443; 84484; 85025; 87040; 87077; 87086; 87150; 87181; 87635; 93005; 93970; 94660; 94761; 96361; 96365; 96366; 96375; 96376; 97116; 97162; 97165; 99233; 99285; A6250; A9270; G0378; G0480; J7120; 80320; 80329; 81003; 83036

== ENCOUNTER 2021-07-25 10:15 | Outpatient (CLI) | payer MEDICARE, OTHER ==
--- NOTE | 2021-07-25 12:01 | CONSULTATION NOTE ---
Palliative Care Follow Up - Referral Referring Provider: Dr. Gabbi Kauffman Time of Visit: 1015-02 Referral setting: Home Referral Reason: Hypoxia/CHF/ Met Lung CA - Information Sources Records reviewed: Previous records reviewed History/Review of Systems obtained from: Patient, Friend (Olivai) Exam limitations: Clinical condition (patiet lethargic and nonresponsive) - History of Present Illness Update Brief HPI Update: This is a 70-year-old woman with metastatic lung cancer, on second line nivolumab since 05/2016, with recent restaging showing progression with new bilateral lung nodules and large mediastinal adenopathy. Patient was due to start her new medications Sotorasib, actually today. I had planned a home visit today in follow-up from her recent hospitalization 07/15-07/18 for encephalopathy, acute respiratory failure with hypoxia, and exacerbation of CHF. Patient had presented nonresponsive on 07/15, and was treated for encephalopathy, acute respiratory failure with hypoxia, only requiring BiPAP, and CHF. They were able to diurese her, she had experienced increased lower extremity edema, and had di scharged her with home PT OT and bathing for support, from [facility]. They have only done an introductory visit. I had spoken to patient yesterday, she was quite feisty, reports she was having significant increased lower extremity edema and as a result increased pain. She reports recurring edema happened within a few days after hospitalization. I had thought she had seen oncology on Wednesday, her roommate says she just went up for a nursing visit. Unfortunately this means no labs were drawn or an evaluation done. On arrival, patient was hypoxic with O2 sats around 78%, verified on 2 different oximeter's, did increase her oxygen from 2 to 3 L, patient did not arouse she could be awakened but went back to sleep. She did recognize APPRAISAL TECHNICIAN, but was unable to stay present. Patient has severe extreme lower extremity edema compared to her norm, she has been on furosemide 40 mg daily, have confirmed this with her roommate does believe she has been taking it consistently. She also has scattered wheezes and diminished breath sounds throughout, does not present with distressed with breathing, but is having difficulty with low sats. Mate reports patient sats have been sitting in the 90%'s, when they have checked. Patient unfortunately has not picked up Spiriva secondary to cost, has not been doing nebulizing treatment secondary to prescription as well as older nebulizer, and continues to smoke almost continuously despite instructions to be on oxygen. Patient's goals are to continue to treat reversible conditions, she is a DO NOT RESUSCITATE, and did confirm with last hospitalization DO NOT INTUBATE but will except BiPAP/CPAP as well as intervention or treatment for things that can be reversed.Patient is not able to make appropriate decisions at this point in t kori, very much does not want to go to the hospital, this often has to do with she cannot smoke.Patient does get easily overwhelmed and anxious with our healthcare system or provider visits. Past Medical History: Hypertension, high cholesterol, history of NE, COPD, emphysema, lung cancer, peripheral neuropathy, type 2 diabetes, hypothyroidism, chronic incontinence, chronic vision loss, depression, anxiety, osteoarthritis, fatigue Social History - Living Situation Living arrangement: At home Living Situation: With friend(s) Support System: Patient lives in an apartment with her long-term good friend Olivia, who provides caregiving support, shopping, and transportation. She is very dependent also for emotional support as well as she has been assigned her DPOA. [place] Juan Ramon who is very close to her. She is why she continues on treatment and sees her as her reason for living. 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 Patient does have an apartment that is up a one-story level of stairs, she has been declining functionally and needing increased assistance Medications/Allergies - Medications Home Medications: Ambulatory Orders Medication Instructions Recorded Confirmed Levothyroxine [Synthroid] 75 mcg PO DAILY 10/04/18 07/25/21 Zolpidem [Ambien] 10 mg ORAL QPM PRN 04/18/19 07/25/21 Albuterol Sulfate [Proair Hfa 2 puffs INH Q4HR PRN 05/30/19 07/25/21 Inhaler] polyethylene glycoL 3350 [Miralax] 8.5 - 17 mg PO DAILY PRN 01/09/20 07/25/21 Gabapentin 600 mg PO BID 02/06/20 07/25/21 Omeprazole 40 mg PO DAILY 07/23/20 07/25/21 Folic Acid 1 mg PO DAILY 10/08/20 07/25/21 Metoprolol Succinate [Toprol Xl] 25 mg PO DAILY 11/13/20 07/25/21 Escitalopram [Lexapro] 10 mg PO DAILY #90 tablet 03/03/21 07/25/21 Ferrous Gluconate 324 mg PO DAILY 05/27/21 07/25/21 HYDROcod/ACETAM 5/325 [[place] 5/325] 1 - 2 tab PO TID PRN 05/27/21 07/25/21 Sotorasib [Lumakras] 960 mg PO DAILY MDD due to start 06/25/21 07/25/2107/25 Ondansetron Odt [Zofran Odt] 4 mg TL Q6H PRN #30 tab 06/30/21 07/25/21 Aspirin Chewable [[place] 81 mg PO DAILY #30 tablet 07/18/21 07/25/21 Aspirin] Furosemide [Lasix] 40 mg PO DAILY #30 tablet MDD new 07/18/21 07/25/21 dose since hospital Simvastatin [Zocor] 80 mg PO HS #30 tablet 07/18/21 07/25/21 - Allergies Allergies/Adverse Reactions: Allergies Allergy/AdvReac Type Severity Reaction Status Date / Time No Known Drug Allergies Allergy Verified 07/25/21 12:02 Review of Systems - Constitutional Constitutional: reports: Fatigue (most problematic symptom), Weakness ( worsening, unable to transfer at time of visit;), Night sweats, Weight gain (appears mostly fluid) - Eyes Eyes: reports: Blurred vision, Vision loss - Ears, Nose & Throat Ears, Nose & Throat: reports: Hearing loss, Dentures, Dry mouth - Cardiovascular Cardiovascular: reports: Edema (worsening again; back to prehospital level), Exertional dyspnea, Decr. exercise tolerance, Orthopnea (needing to sleep in recliner intermittently). denies: Palpitations, Chest pain - Respiratory Respiratory: reports: Cough (coughing spasms), Sputum production, Wheezing, Orthopnea, SOB at rest, SOB with exertion - Gastrointestinal Gastrointestinal: reports: Poor appetite, Early satiety - Genitourinary Genitourinary: reports: Incontinence - Musculoskeletal Musculoskeletal: reports: Back pain, Stiffness, Muscle weakness, Assistive devices (uses walker now even for short distances at home; ADLS have been more difficult), Other (currently nonrepsonsive) - Integumentary Integumentary: reports: Dryness - Neurological Neurological: reports: General weakness, Numbness (severe and worsening peripheral neuropathy; told me yesterday her feet were on fire), Memory problems (does not recall last few days) - Psychiatric Psychiatric: reports: Depression, Anxiety (has been prevelant and increasing with decline) - Endocrine Endocrine: reports: Diabetes type 2, Hypothyroidism - Hematologic/Lymphatic Hematologic/Lymph: reports: Anemia (9.1) - All Other Systems All Other Systems: reports: Other (limited as unresponsive; patient well known to me) Physical Exam - Vital Signs Temperature: 97.8 C Pulse Rate: 88 Respiratory Rate: 16 O2 Saturation: 78 (on 2 liters on arrival; 85% on 3 liters and stimulation) - Physical Exam General Appearance: positive: Mild distress (with worsening edema; sob), Lethargic (scattered through) Eyes Bilateral: positive: No scleral icterus Neck: positive: Trachea midline Cardiovascular: positive: Regular rate & rhythm Respiratory: positive: Wheezes (wheezing noted wtih coughing spasms), Rhonchi. negative: No respiratory distress (more respiratory effort with conversation; movement) Abdomen: positive: Soft, Distended, Obese Skin: positive: Pallor, Dryness Extremities: positive: Pedal edema (worsening; taut) Neurologic/Psychiatric: positive: Disoriented to time, Weakness, Depressed mood/affect, Flat affect Palliative Care - POLST Patient has POLST: Yes POLST Status: DNR, Selective Treatment Feelings of wellbeing/Perceived Quality of Life: Poor, Acceptable, Worsening Constipation: Yes, Comment (roomate says no BM for several days) Performance Status: She has been experiencing decline in functional status, they have gotten a commode to be able to address if has any trouble with diarrhea with new medication. Patient has needed increased assistance with ADLs and IADLs. Patient on arrival though is unable to awaken, transfer, or engage in questioning. - Palliative Care Discussion: Patient not wanting to go to the hospital when awakened by the paramedics. Patient does not have decision-making capacity at this point, reviewed in context of patient's goals, needs to go to the hospital to see if it is a reversible condition. Patient does have POLST, last conversation in hospital did clarify DN AI as well, will accept BiPAP or CPAP and would like reversible conditions treated. Her goal is to continue treatment and living for her granddaughter, but does need to stay independent, as far as her caveats. Patient is quite anxious and easily overwhelmed, did call to see ED with report for Dr. Franco to clarify goals. Send copy of POLST with paramedics and explained goals as well. Impression and Recommendations - Palliative Care Impression: This is a 70-year-old woman who presents with acute on chronic respiratory failure, lethargy, and worsening lower extremity edema and wheezing. Patient unable to arouse or participate in decision-making, will send to ED for evaluation and see if there is reversible conditions. Patient had been hoping to start her new treatment in our phone conversation yesterday, and was hopeful for again more quality and quantity of life. Palliative care continue to provide support for pain and symptom management and anticipatory guidance. Recommendations/Counseling Done: 1. Acute on chronic respiratory failure. Patient presents hypoxic and lethargic, as well as most likely in fluid overload again. Patient does have known mediastinal adenopathy, unclear if this is adding to the complexity of this. Patient with goals for continued quality and quantity of life, and treatment for reversible conditions. 911 is called, and report given to Dr. Franco. 2. Medication adherence. It does continue to be challenging in the setting, patient is unable to confirm what she is taking or not taking. She does have her pills aligned as she has before, does look like she is taking appropriate medications and has started the furosemide 40 mg. We will continue to monitor, may need Mediset's and to add nursing to home health referral. 45 minutes with greater than 50% of this done and coordination of care with emergency room, patient's DPOA reviewing of goals and concerns, and anticipatory guidance provided.
== END 2021-07-25 10:16 | disposition home or self-care (01) ==
LOC: PC 10:15
PROVIDERS: ATTEND Nurse Practitioner Adult Health
DX: Z51.5 Encounter for palliative care (principal); J96.21 Acute and chronic respiratory failure with hypoxia; R60.0 Localized edema; R40.0 Somnolence; R53.1 Weakness; R53.83 Other fatigue; G62.9 Polyneuropathy, unspecified; F17.210 Nicotine dependence, cigarettes, uncomplicated; Z79.899 Other long term (current) drug therapy; Z74.1 Need for assistance with personal care; Z66 Do not resuscitate
CPT/HCPCS: 99349

== ENCOUNTER 2021-07-25 11:16 | Outpatient (CLI) | payer MEDICARE, OTHER | END 2021-07-25 11:17 | disposition critical access hospital (66) | LOC: EMS 11:16 | DX: R53.83 Other fatigue (principal); R60.0 Localized edema; I50.9 Heart failure, unspecified | CPT/HCPCS: A0425; A0429 ==

== ENCOUNTER 2021-07-25 11:49 | Inpatient (IN) | payer MEDICARE, OTHER ==
--- NOTE | 2021-07-25 12:04 | ED Physician Documentation ---
History of Present Illness - Stated complaint Stated Complaint: SOA - Additonal information Additional information: 70-year-old female was referred to the emergency department for evaluation of hypoxia lethargy and altered mental status. She was being seen this morning in her home by the palliative care nurse practitioner who was concerned about hypoxia and lethargy and requested ER evaluation. Palliative care nurse practitioner noted saturations in the mid 80s. When EMS arrived they increase her baseline nasal cannula from 2 to 4 L/min with increasing sats to 92%. She does have a past medical history is significant for COPD, metastatic non- small cell lung cancer, chronic kidney disease who has a very poor prognosis with regards to her cancer. She was recently admitted to this hospital for acute respiratory failure and hypoxia, encephalopath, and heart failure. At the bedside the patient arouses to her name follow simple commands but is quite lethargic. She is saturating 93% on 4 L nasal cannula. She is quite edematous with 3+ edema in the lower legs as well as some facial and eye edema. Review of Systems Unable to obtain: AMS PD PAST MEDICAL HISTORY - Past Medical History Cardiovascular: Hypertension, High cholesterol, [place] Respiratory: COPD, Emphysema, Other (Lung cancer, O2 at night) Neuro: Peripheral neuropathy Endocrine/Autoimmune: Type 2 diabetes, HyPOthyroidism GI: Other : Incontinence HEENT: Chronic vision loss, Other Psych: Depression, Anxiety Musculoskeletal: Osteoarthritis, Fatigue Derm: None - Past Surgical History Past Surgical History: Yes General: EGD Cardiovascular: Coronary stent, Cardiac catheterization HEENT: Tonsil/Adenoidectomy - Present Medications Home Medications: Ambulatory Orders Medication Instructions Recorded Confirmed Levothyroxine [Synthroid] 75 mcg PO DAILY 10/04/18 07/25/21 Zolpidem [Ambien] 10 mg ORAL QPM PRN 04/18/19 07/25/21 Albuterol Sulfate [Proair Hfa 2 puffs INH Q4HR PRN 05/30/19 07/25/21 Inhaler] polyethylene glycoL 3350 [Miralax] 8.5 - 17 mg PO DAILY PRN 01/09/20 07/25/21 Gabapentin 600 mg PO BID 02/06/20 07/25/21 Omeprazole 40 mg PO DAILY 07/23/20 07/25/21 Folic Acid 1 mg PO DAILY 10/08/20 07/25/21 Metoprolol Succinate [Toprol Xl] 25 mg PO DAILY 11/13/20 07/25/21 Escitalopram [Lexapro] 10 mg PO DAILY #90 tablet 03/03/21 07/25/21 Ferrous Gluconate 324 mg PO DAILY 05/27/21 07/25/21 HYDROcod/ACETAM 5/325 [[place] 5/325] 1 - 2 tab PO TID PRN 05/27/21 07/25/21 Sotorasib [Lumakras] 960 mg PO DAILY MDD due to start 06/25/21 07/25/2107/25 Ondansetron Odt [Zofran Odt] 4 mg TL Q6H PRN #30 tab 06/30/21 07/25/21 Aspirin Chewable [[place] 81 mg PO DAILY #30 tablet 07/18/21 07/25/21 Aspirin] Furosemide [Lasix] 40 mg PO DAILY #30 tablet MDD new 07/18/21 07/25/21 dose since hospital Simvastatin [Zocor] 80 mg PO HS #30 tablet 07/18/21 07/25/21 - Allergies Allergies/Adverse Reactions: Allergies Allergy/AdvReac Type Severity Reaction Status Date / Time No Known Drug Allergies Allergy Verified 07/25/21 12:02 - Social History Does the pt smoke?: Yes Smoking Status: Current every day smoker Does the pt drink ETOH?: No Does the pt have substance abuse?: No - Immunizations Immunizations: TDAP >10years/unknown - POLST Patient has POLST: Yes PD ED PE EXPANDED - General General: Lethargic - HEENT HEENT: Other (Edematous eyes) - Cardiac Cardiac: Regular Rate, Radial strong equal, Pedal strong equal, Cap refill < 2 sec - Respiratory Respiratory: Other (Diminished breath sounds right lung field. Otherwise generally rhonchorous. Respiratory rate 24. Saturating 93% 4 L nasal cannula) - Abdomen Abdomen: Normal Bowel sounds. No: Tender to palpation - Derm Derm: Normal color, Warm and dry - Extremities Extremities: Pedal edema bilateral (3+ pitting edema bilateral lower extremities.), Pedal Pulses Present - Neuro Neuro: Alert and Oriented X 3, CNII-XII intact - GCS Eye Opening: To Voice Motor: Obeys Commands Verbal: Confused Total: 13 Results - Vitals Vitals: Vital Signs - 24 hr 07/25/21 07/25/2122 11:53 12:29 12:34 Temperature 36.3 C L 36.5 C Heart Rate 86 76 72 Respiratory 29 H 24 Rate Blood Pressure 131/58 H 127/58 L O2 Saturation 94 96 07/25/21 12:37 Temperature Heart Rate 72 Respiratory 26 H Rate Blood Pressure O2 Saturation Oxygen O2 Source Nasal cannula Oxygen Flow Rate 2 - EKG (time done) 1202 Rate: Rate (enter#) (79) Rhythm: NSR, Other (pvcs) Intervals: Normal DE, Prolonged QT QRS: Poor R wave progression Ischemia: Q waves, Non specific changes Compare to prior EKG: Unchanged from prior EKG Computer interpretation: Agree with computer - Labs Labs: Laboratory Tests 07/25/21 07/25/21 07/25/21 12:06 12:06 12:06 WBC 8.4 RBC 2.94 L Hgb 9.1 L Hct 31.7 L MCV 107.8 H MCH 31.0 MCHC 28.7 L RDW 15.9 H Plt Count 249 MPV 8.9 Neut # (Auto) 6.5 Lymph # (Auto) 1.1 L [place] # (Auto) 0.5 Eos # (Auto) 0.1 Baso # (Auto) 0.1 Absolute Nucleated RBC 0.02 Nucleated RBC % 0.2 RBC Morph Micro Appear 1+ POLYCHROMASIA PT 11.3 INR 1.0 Bld Gas Analysis Time Sample Site ABG pH ABG pCO2 ABG pO2 ABG HCO3 ABG Total CO2 ABG O2 Saturation ABG Base Excess Hema Test O2 Delivery Device O2 Liters/Min Sodium 137 Potassium 5.0 Chloride 94 L Carbon Dioxide 35 H Anion Gap 8.0 BUN 29 H Creatinine 1.5 H Estimated GFR (MDRD) 35 L Glucose 138 H Calcium 8.0 L Total Bilirubin 0.5 AST 17 ALT 17 Alkaline Phosphatase 120 Troponin I High Sens B-Natriuretic Peptide Total Protein 7.2 Albumin 3.3 Globulin 3.9 Albumin/Globulin Ratio 0.8 L Lipase 42 SARS-CoV-2 (PCR) 07/25/21 07/25/21 07/25/21 12:06 12:06 12:19 WBC RBC Hgb Hct MCV MCH MCHC RDW Plt Count MPV Neut # (Auto) Lymph # (Auto) [place] # (Auto) Eos # (Auto) Baso # (Auto) Absolute Nucleated RBC Nucleated RBC % RBC Morph Micro Appear PT INR Bld Gas Analysis Time 1224 Sample Site RIGHT BRACHIAL ABG pH 7.27 L ABG pCO2 77 H* ABG pO2 71 L ABG HCO3 34.1 H ABG Total CO2 36.5 H ABG O2 Saturation 94 ABG Base Excess 5.5 H Hema Test POSITIVE O2 Delivery Device NASAL CANNULA O2 Liters/Min 4.00 Sodium Potassium Chloride Carbon Dioxide Anion Gap BUN Creatinine Estimated GFR (MDRD) Glucose Calcium Total Bilirubin AST ALT Alkaline Phosphatase Troponin I High Sens 16.9 H* B-Natriuretic Peptide 1237 H Total Protein Albumin Globulin Albumin/Globulin Ratio Lipase SARS-CoV-2 (PCR) 07/25/21 13:22 WBC RBC Hgb Hct MCV MCH MCHC RDW Plt Count MPV Neut # (Auto) Lymph # (Auto) [place] # (Auto) Eos # (Auto) Baso # (Auto) Absolute Nucleated RBC Nucleated RBC % RBC Morph Micro Appear PT INR Bld Gas Analysis Time Sample Site ABG pH ABG pCO2 ABG pO2 ABG HCO3 ABG Total CO2 ABG O2 Saturation ABG Base Excess Hema Test O2 Delivery Device O2 Liters/Min Sodium Potassium Chloride Carbon Dioxide Anion Gap BUN Creatinine Estimated GFR (MDRD) Glucose Calcium Total Bilirubin AST ALT Alkaline Phosphatase Troponin I High Sens B-Natriuretic Peptide Total Protein Albumin Globulin Albumin/Globulin Ratio Lipase SARS-CoV-2 (PCR) NOT DETECTED - Rads (name of study) cxr Radiology: Final report received (Cardiomegaly without pericardial effusion) PD MEDICAL DECISION MAKING - ED course Complexity details: reviewed results, re-evaluated patient, d/w patient ED course: 70-year-old female who has a history of COPD, congestive heart failure, metastatic non-small cell lung cancer and recent admission to the hospital for acute hypoxic respiratory failure and encephalopathy as well as heart failure presents to the emergency department for again altered mental status, lethargy, and now hypercarbic respiratory failure. She is a DNR DNI with selective treatment only to include BiPAP. Nurse practitioner with palliative care was evaluating this patient this morning noted some hypoxia and EMS was summoned. On presentation to the emergency department she is encephalopathic. Very lethargic. She does arouse to her name. Follows simple commands but quickly falls asleep. Her initial ABG does show hypercarbic respiratory failure. pH 7.27 with a CO2 of 77. 4 L nasal cannula gives a PaO2 of 71. Patient was initially placed on BiPAP to help address the hypercarbic respiratory failure after ABG results acheived. Repeat ABG showed And improved PaCO2 in the 60s. Patient's lethargy and mental status have also improved however she remains on BiPAP with respiratory therapy adjusting settings. We do note chest x-ray that has significant cardiomegaly but no pleural effusion or pericardial effusion. Her BNP is markedly elevated up from 700's to now Patient was administered 40 mg of Lasix. EKG nonischemic and essentially unchang ed from recent admission. No significant troponin elevation. Today measured at 16.9. Likely troponin leak in the setting of congestive heart failure. Patient will require hospitalization for further treatment of hypercarbic respiratory failure I spoken with Dr. Verdin who has agreed to admit the patient. Urinalysis is pending. COVID-19 is pending. - Critical Care Time(min): 15 Time Includes: Direct patient care, Review records, Coordinate care, Medical consult Data interpretation: ABG Departure - Departure Disposition: 66 [facility] DC/Xfer Clinical Impression: Encephalopathy, Metastatic non-small cell lung cancer Hypercapnic respiratory failure Qualifiers: Chronicity: acute Qualified Code(s): J96.02 - Acute respiratory failure with hy percapnia Congestive heart failure Qualifiers: Heart failure type: unspecified Heart failure chronicity: unspecified Qualified Code(s): I50.9 - Heart failure, unspecified Discharge Date/Time: 07/25/21 14:45
[2021-07-25 12:12] LABS: BASOPHILS # (AUTO) 0.1 10^3/uL (0.0-0.1); BASOPHILS % (AUTO) 0.6 %; EOSINOPHILS # (AUTO) 0.1 10^3/uL (0.0-0.7); EOSINOPHILS % (AUTO) 1.7 %; HCT - HEMATOCRIT 31.7 % (37.0-47.0); HGB - HEMOGLOBIN 9.1 g/dL (12.0-16.0); LYMPHOCYTES # (AUTO) 1.1 10^3/uL (1.5-3.5); LYMPHOCYTES % (AUTO) 12.6 %; MEAN CORPUSCULAR HGB CONC 28.7 g/dL (32.0-36.0); MEAN CORPUSCULAR VOLUME 107.8 fL (81.0-99.0); MEAN PLATELET VOLUME 8.9 fL (7.9-10.8); MONOCYTES # (AUTO) 0.5 10^3/uL (0.0-1.0); MONOCYTES % (AUTO) 6.3 %; NEUTROPHILS # (AUTO) 6.5 10^3/uL (1.5-6.6); NEUTROPHILS % (AUTO) 77.6 %; NRBC ABSOLUTE COUNT (AUTO) 0.02 x10^3/uL; NUCLEATED RED BLOOD CELLS AUTO 0.2 /100WBC; PLT - PLATELET COUNT 249 10^3/uL (130-450); RED BLOOD COUNT 2.94 10^6/uL (4.20-5.40); RED CELL DISTRIBUTION WIDTH 15.9 % (12.0-15.0); WHITE BLOOD COUNT 8.4 x10^3/uL (4.8-10.8)
[2021-07-25] MEDS ORDERED: ALBUTEROL NEB 2.5 MG/3 ML INH ONE (12:18)
[2021-07-25 12:22] LABS: PT - PROTHROMBIN TIME 11.3 secs (9.9-12.6)
[2021-07-25 12:27] LABS: ALBUMIN 3.3 g/dL (3.2-5.5); ALBUMIN/GLOBULIN RATIO 0.8 (1.0-2.2); BILIRUBIN,TOTAL 0.5 mg/dL (0.2-1.0); CREATININE 1.5 mg/dL (0.4-1.0); TOTAL PROTEIN 7.2 g/dL (6.7-8.2)
[2021-07-25 12:27] LABS: ABG PH 7.27 (7.35-7.45)
[2021-07-25 12:28] LABS: ABG HCO3 34.1 mmol/L (22.0-26.0); ABG PO2 71 mmHg (80-100)
[2021-07-25 12:29] LABS: ABG BASE EXCESS 5.5 mmol/L (-2.0-3.0); ABG OXYGEN SATURATION 94 % (94-98); ABG TCO2 36.5 MMOL/L (21.0-29.0); ALLEN TEST POSITIVE
--- NOTE | 2021-07-25 12:32 | XRAY Report ---
PROCEDURE: Chest 1 View X-Ray INDICATIONS: Chest Pain TECHNIQUE: One view of the chest was acquired. COMPARISON: July 15, 2021 FINDINGS: SUPPORT DEVICES: Redemonstrated left rosaura catheter. LUNGS/PLEURA: Prominence of interstitium. Blunting of the right costophrenic sulcus, compatible with small pleural effusion/atelectasis. No pneumothorax. MEDIASTINUM: Enlargement of the cardiac silhouette. Calcified atheromatous changes aorta. BONES/SOFT TISSUES: No acute abnormality. IMPRESSION: 1.Cardiomegaly without pericardial effusion. Reviewed by: Gio Nelson MD on 07/25/2021 12:30 PM PDT Approved by: Gio Nelson MD on 07/25/2021 12:30 PM PDT Station ID: [id number]
[2021-07-25 12:33] LABS: ABG PCO2 77 mmHg (34-45)
[2021-07-25] MEDS ORDERED: ALBUTEROL NEB 2.5 MG/3 ML INH STA (12:36)
[2021-07-25] MEDS ORDERED: FUROSEMIDE 40 MG/4 ML VIAL IVP STA (12:41)
[2021-07-25] MEDS ORDERED: ONDANSETRON 4 MG/2 ML VIAL IVP PRN (13:26)
[2021-07-25] MEDS ORDERED: ACETAMINOPHEN 325 MG TABLET PO PRN (13:26)
[2021-07-25 13:44] LABS: ABG PO2 71 mmHg (80-100)
[2021-07-25 13:47] LABS: ABG HCO3 32.8 mmol/L (22.0-26.0); ABG OXYGEN SATURATION 94 % (94-98); ABG TCO2 34.9 MMOL/L (21.0-29.0); ALLEN TEST POSITIVE
[2021-07-25 13:48] LABS: ABG MODE OF VENTILATION SYNCHRONOUS/TIMES
[2021-07-25 13:50] LABS: ABG PCO2 68 mmHg (34-45)
[2021-07-25] MEDS ORDERED: IPRATROPIUM/ALBUTEROL 3 ML NEB INH PRN (14:13)
--- NOTE | 2021-07-25 14:28 | HISTORY & PHYSICAL EXAMINATION ---
Chief Complaint - Chief Complaint Chief Complaint: Obtunded and hypoxic, when found by Palliative Care provider at house call History of Present Illness - Admitted From Admitted From:: ED - History Obtained From History obtained from: ED provider, Palliative Care provider and chart review - History of Present Illness HPI Comment/Other: This is a 70-year-old white female with a past medical history significant for COPD on home O2, metastatic non-small cell lung cancer, peripheral neuropathy, CHF (with unknown EF), and CKD stage III who presented to ER today by EMS, after being found obtunded and hypoxic when her Palliative Care provider did a house call. History is obtained from the emergency department physician as the patient is unable to provide a history. The patient was just hospitalized here on 07/15/21 and discharged home 1 week ago, when at that presentation she was found down at home by her friend with empty pill bottles next to her. The POA, Zoie, was contacted who confirmed the patient was depressed over her cancer diagnosis but probably not suicidal. The patient required BIPAP and diuresis during that hospitalization for a Dx of CHF and was sent home then on oxygen: 2L at rest and 4L with activity. The patient has been followed by Palliative Care provider Harini Cuadra NP for years. Today Harini did a house call and found the patient obtunded with oxygen saturations in the mid 80s. When EMS arrived they increase her baseline nasal cannula O2 from 2 to 4 L/min which increased the sats to 92%. In the ED, the patient was arousable to her name but was lethargic, saturating at 93% on 4 L nasal cannula. Also noted was marked 3+ edema of the legs as well as edema of the face and eye edema. An ABG was done in the ED that showed pH 7.27, pCO2 77, pO2 71, and bicarb 34. Her BNP was 1237 (last admission BNP was 750). She was started on BIPAP in the ED, given iv Lasix, an Albuterol nebulizer treatment and the Hospitalist team was contacted for admission. Her Covid serology is neg. At the last hospitalization, that admitting Hospitalist spoke with the patient's POA and it was confirmed that the patient would agree to be on a mechanical ventilation as long as it was temporary. She would not want prolonged mechanical ventilation. Her POLST form states that she is a DNR with limited interventions but her POA felt that mechanical inhalation would be okay. History - Past Medical History Cardiovascular: reports: Congestive heart failure (Unknown EF, no Echo was done at last recent admission because no Echo service avail), Hypertension, High cholesterol, [place] Respiratory: reports: COPD, Emphysema, Other (Lung cancer, is on home O2 ) Neuro: reports: Peripheral neuropathy Endocrine/Autoimmune: reports: Type 2 diabetes, HyPOthyroidism GI: reports: Other : reports: Incontinence HEENT: reports: Chronic vision loss, Other Psych: reports: Depression, Anxiety Musculoskeletal: reports: Osteoarthritis, Fatigue Derm: reports: None MRSA Hx?: No - Past Surgical History General: reports: EGD Cardiovascular: reports: Coronary stent, Cardiac catheterization HEENT: reports: Tonsil/Adenoidectomy - Family & Social History Family History: Mother: , Sister: Alive and Well, Brother: Alive and Well, Alcoholism, Other family: Alive and Well Family History Comment/Other: Review of prior records revealed that her mother at the age of 94. Her brother from diabetes and alcoholism. Living Situation: With friend(s) Social History Notes: Harini Cuadra informed me that she lives with her friend and POAZoie. The patient smokes 2 packs a day - Substance History Tobacco Details: Cigarettes - POLST Patient has POLST: Yes POLST Status: DNR Meds/Allgy - Home Medications Home Medications: Ambulatory Orders Medication Instructions Recorded Confirmed Levothyroxine [Synthroid] 75 mcg PO DAILY 10/04/18 07/25/21 Zolpidem [Ambien] 10 mg ORAL QPM PRN 04/18/19 07/25/21 Albuterol Sulfate [Proair Hfa 2 puffs INH Q4HR PRN 05/30/19 07/25/21 Inhaler] polyethylene glycoL 3350 [Miralax] 8.5 - 17 mg PO DAILY PRN 01/09/20 07/25/21 Gabapentin 600 mg PO BID 02/06/20 07/25/21 Omeprazole 40 mg PO DAILY 07/23/20 07/25/21 Folic Acid 1 mg PO DAILY 10/08/20 07/25/21 Metoprolol Succinate [Toprol Xl] 25 mg PO DAILY 11/13/20 07/25/21 Escitalopram [Lexapro] 10 mg PO DAILY #90 tablet 03/03/21 07/25/21 Ferrous Gluconate 324 mg PO DAILY 05/27/21 07/25/21 HYDROcod/ACETAM 5/325 [[place] 5/325] 1 - 2 tab PO TID PRN 05/27/21 07/25/21 Sotorasib [Lumakras] 960 mg PO DAILY MDD due to start 06/25/21 07/25/2107/25 Ondansetron Odt [Zofran Odt] 4 mg TL Q6H PRN #30 tab 06/30/21 07/25/21 Aspirin Chewable [[place] 81 mg PO DAILY #30 tablet 07/18/21 07/25/21 Aspirin] Furosemide [Lasix] 40 mg PO DAILY #30 tablet MDD new 07/18/21 07/25/21 dose since hospital Simvastatin [Zocor] 80 mg PO HS #30 tablet 07/18/21 07/25/21 - Allergies Allergies/Adverse Reactions: Allergies Allergy/AdvReac Type Severity Reaction Status Date / Time No Known Drug Allergies Allergy Verified 07/25/21 12:02 Review of Systems - All Other Systems All Other Systems: reports: Other (Unable to obtain since the patient is lethargic) Exam - Vital Signs Reviewed Vital Signs: Yes Vital Signs: Vital Signs x48h Temp Pulse Resp BP Pulse Ox 07/25/21 14:02 36.5 C 68 20 107/64 95 07/25/21 13:45 70 07/25/21 12:37 72 26 H 07/25/21 12:34 72 07/25/21 12:29 36.5 C 76 24 127/58 L 96 07/25/21 11:53 36.3 C L 86 29 H 131/58 H 94 - Physical Exam General Appearance: positive: Other (Obtunded, moves extrem spont, opens eyes and says one-word answers to her name. Obese WF.) Eyes Bilateral: positive: Other (swollen eyelids, eyes are closed) ENT: positive: Other (Wearing BIPAP mask, eyes are closed) Neck: positive: Nml inspection, Other (Obese and cannot eval JVP) Respiratory: positive: No respiratory distress (while on BIPAP) Cardiovascular: positive: Regular rate & rhythm, Other (distant heart sounds) Abdomen: positive: Other (Obese with a pannus. 4+ pitting edema of the lower 1/3 of abd wall.) Skin: positive: Warm, Dry Extremities: positive: Other (4+ edema to above thighs) Neurologic/Psychiatric: positive: Other (Obtunded, non-focal, opens eyes to name and says one-word answer then falls asleep) Conclusion/Plan - Problem List (1) Encephalopathy Conclusion/Plan: This is a very similar presentation to what she had a week ago when she was obtunded, hypercarbic and needed to be on BiPAP. That time there were empty bottles of sedatives near her. When she was alert during that admission, she denied taking excessive sedatives however. This time she was found by a clinician, there was no report of bottles of sedatives in the area. She was again found to be hypercarbic and is awakening slightly since on BiPAP but does not sustain wakefulness and cannot carry on a conversation. No head CT was done in the ED. Will perform a head CT. Continue to monitor with neuro checks, in the ICU. Will recheck her ABG to assess if there is adequate ventilation and normalization of her pH. No sedatives, like her Ambien, will be used. Will put hold parameters on her Gabapentin and Lexapro while she is obtunded. Diet will be pureed then advance as she awakens (2) Hypercapnic respiratory failure Conclusion/Plan: This presentation is nearly identical to the one from 9 days ago. She required BiPAP then for high CO2 which was making her obtunded. She awoke after BiPAP use for several days and being treated with IV diuretics and went home with home O2 set at 2 L at rest and 4 L with activity. It is not clear if she was increasing her O2 settings at home on her own, which may have resulted in losing her hypoxic drive for ventilation (in a COPDer) causing CO2 retention and obtundation. Home Health had been ordered at that last admission, but it is unknown if there was an RN visit to check on proper home oxygen settings being used. She will be treated with BiPAP in the ICU again to ventilate her, recheck ABG to assure that the pH has improved. Will adjust/wean her O2 settings down as appropriate, keeping sats >88%. She may be a candidate for a Home ventilator (like a Trilogy machine). Will stop her Ambien and avoid meds that could over-sedate her. We will treat the underlying problem which appears to be chronic COPD and anot her CHF exacerbation, given the very high BNP. Qualifiers: Chronicity: acute Qualified Code(s): J96.02 - Acute respiratory failure with hypercapnia (3) CHF exacerbation Conclusion/Plan: Her chest x-ray was interpreted as showing cardiomegaly, no pericardial effusion, prominent interstitium and blunting of the right costophrenic angle consistent with small pleural effusion. This patient's last Echocardiogram was done 2 years ago when she had a preserved EF but significant diastolic heart failure. At the last admission 9 days ago, no Echo could be done since we have no echo service. She has anasarca today by exam: 4+ edema to the abdominal wall, swollen arms, face and eyelids. I will perform a limited bedside 2D Echo myself (as a board-certified Decorative Engraver). We will start Lasix IV twice daily. Follow BUN/creatinine due to her CKD. Follow I's and O's and daily weights. Will add appropriate meds if she is found to have systolic heart failure. Follow BMP daily. Will cycle her troponins to rule out an acute coronary event. Will assess if she may be non-complaint with meds leading to a CHF exacerbation again. SW consult will be ordered. (4) COPD (chronic obstructive pulmonary disease) Conclusion/Plan: She does not appear to be in exacerbation this time, has no wheezing or prolonged expiratory phase. Will continue with her usual inhalers in nebulizer form and O2 Will adjust suppl O2, keeping O2 sats > 88% (5) Metastatic non-small cell lung cancer Conclusion/Plan: As per Hx. Will ask Palliative Care to follow along with us, if she is here past the weekend (today is Wed afternoon). (6) Chronic kidney disease Conclusion/Plan: Written is 1.5-1.9 and it is 1.5 today. Avoid nephrotoxins. Follow BMP daily Qualifiers: Chronic kidney disease stage: stage 3 (moderate) (7) Anemia Conclusion/Plan: On iron supplements and folate replacement at home. These will be resumed. We will recheck her iron stores, B12 and folate levels and adjust the doses if needed. Follow CBC daily, would plan on a transfusion if hemoglobin goes under 7 Qualifiers: Anemia type: iron deficiency Iron deficiency anemia type: unspecified iron deficiency Qualified Code(s): D50.9 - Iron deficiency anemia, unspecified (8) Hypothyroidism Conclusion/Plan: We will check a TSH to assess adequate thyroid replacement and resume her Synthroid dose (9) Peripheral neuropathy Conclusion/Plan: Will resume her Gabapentin, the dose will not be increased since it may be adding to oversedation (10) Tobacco abuse Conclusion/Plan: According to the last admission, she smokes 2 packs/day. Will order nicotine patch topically to decrease nicotine urges - Lab Results Fish Bones: 07/25/21 12:06 07/25/21 12:06 - Diagnostic Imaging Results Diagnostic Imaging Results: positive: Final report reviewed - Other Other Results/Comments: Attestation: The patient is expected to be discharged or transferred to another facility within 96 hours: Yes.
[2021-07-25] MEDS ORDERED: HYDROcod/ACETAM 5/325 MG TABLET PO PRN (14:58)
[2021-07-25] MEDS: SODIUM CHLORIDE FLUSH 0.9% 10 ML SYRINGE IVP PRN (15:05)
[2021-07-25] MEDS: IPRATROPIUM/ALBUTEROL 3 ML NEB INH SCH ×2 (15:36→19:15)
--- NOTE | 2021-07-25 17:16 | PROVIDER PROGRESS NOTE ---
Hospitalist Cross-cover Note - Cross-Cover Note Cross-Cover Note: Since the patient is not awake to discuss whether she was non-compliant with meds or to get any Hx such as chest pain, and because of her anasarca and a higher BNP than 1 week ago, when she was also admitted for CHF, the plan is to get an Echo. No Echo service is available at this hospital currently, however, so it was not done a week ago. Therefore, as a Board-certified Refinery Operator, I performed a limited 2D and Doppler Echo today. The Echo showed: Mildly dilated left atrium and right atrium. Normal LV size, mild LVH, preserved LV contractility, EF 55%. Doppler shows severe LV diastolic dysfunction. Right ventricle mildly - moderately dilated, low-normal RV function. A small to moderate loculated pericardial effusion is present, seen infero- posteriorly and apically. It is chronic as it has echogenic "debris" seen within the pericardial effusion, no evidence of tamponade. 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 This is the cause for the appearance of cardiomegaly on CXR. Plan: 1) She needs slow steady and prolonged diuresis. I suspect she is noncompliant with Lasix at home, given the amount of anasarca she has clinically. 2) I suspect she is noncompliant in terms of her O2 settings, loses her hypoxic drive to ventilate, gets CO2 retention then lethargy. 3) Continue B-1 selective B-best, no prevent tachycardia. 4) Treating her pulmonary condition (COPD and continued heavy smoking), is creating her cor pulmonale and adding to her anasarca. Continue with nebulizer Beta agonist and anti-muscarinic treatments, Singulair tablet added, and oxygen supplemental, to achieve sats of 88% but not higher have been ordered. 5) At the last admission a week ago, she wanted to be discharged home urgently after just 2 days of being treated here. The plan now will be to have her diurese adequately, using IV Lasix for more than just 2 days, during this hospital stay, given her anasarca. CRITICAL CARE TIME SPENT: 40 min
[2021-07-25] MEDS: FUROSEMIDE 40 MG/4 ML VIAL IVP SCH (17:21)
[2021-07-25] MEDS: SODIUM CHLORIDE FLUSH 0.9% 10 ML SYRINGE IVP SCH ×3 (17:23→23:50)
[2021-07-25 17:28] LABS: BILIRUBIN,URINE NEGATIVE (NEGATIVE); GLUCOSE, URINE (UA) NEGATIVE (NEGATIVE); KETONES,URINE (UA) NEGATIVE (NEGATIVE); LEUKOCYTE ESTERASE, URINE SMALL (NEGATIVE); NITRITE,URINE POSITIVE (NEGATIVE); OCCULT BLOOD,URINE NEGATIVE (NEGATIVE); PROTEIN,URINE NEGATIVE (NEGATIVE); UROBILINOGEN,URINE 0.2 (NORMAL) E.U./dL (NORMAL)
[2021-07-25 17:29] LABS: CLARITY,URINE HAZY (CLEAR)
[2021-07-25 17:36] LABS: WBC,URINE >25 /HPF (0-5)
[2021-07-25 17:37] LABS: BACTERIA,URINE Many /HPF (None Seen); RBC,URINE 0-5 /HPF (0-5); SQUAMOUS EPITHELIAL CELL,UR NONE SEEN (<= Few)
[2021-07-25] MEDS ORDERED: MIN OIL/DIMETHICON/COCONUT OIL 92 GM TUBE TOP PRN (18:46)
[2021-07-25] MEDS: NICOTINE 14 MG PATCH TOP SCH (18:55)
[2021-07-25 18:58] LABS: ABG BASE EXCESS 6.1 mmol/L (-2.0-3.0); ABG HCO3 33.4 mmol/L (22.0-26.0); ABG OXYGEN SATURATION 96 % (94-98); ABG PH 7.33 (7.35-7.45); ABG PO2 87 mmHg (80-100); ABG TCO2 35.4 MMOL/L (21.0-29.0); ALLEN TEST POSITIVE
[2021-07-25 18:59] LABS: ABG RESPIRATORY RATE 18 b/min
[2021-07-25 19:00] LABS: ABG PCO2 65 mmHg (34-45)
[2021-07-25] MEDS: FORMOTEROL FUMARATE NEB 20 MCG/2 ML INH SCH (19:15)
[2021-07-25] MEDS: FAMOTIDINE 20 MG/2 ML VIAL IVP SCH (20:21)
[2021-07-25] MEDS: CHLORHEXIDINE GLUCONATE 15 ML UDC PO SCH (20:22)
[2021-07-25] MEDS: GABAPENTIN 300 MG CAPSULE PO SCH (20:24)
[2021-07-25] MEDS: MONTELUKAST 10 MG TABLET PO SCH (20:24)
[2021-07-25] MEDS: ATORVASTATIN 40 MG TABLET PO SCH (20:24)
[2021-07-25] MEDS ORDERED: GABAPENTIN 300 MG CAPSULE PO SCH (21:00)
[2021-07-26 04:57] LABS: CALCIUM, IONIZED 1.01 mmol/L (1.15-1.33); VBG PH 7.369 (7.31-7.41)
[2021-07-26 05:00] LABS: BASOPHILS % (AUTO) 0.4 %; EOSINOPHILS # (AUTO) 0.2 10^3/uL (0.0-0.7); EOSINOPHILS % (AUTO) 2.9 %; HCT - HEMATOCRIT 27.5 % (37.0-47.0); LYMPHOCYTES # (AUTO) 1.1 10^3/uL (1.5-3.5); LYMPHOCYTES % (AUTO) 21.9 %; MEAN CORPUSCULAR HGB CONC 29.1 g/dL (32.0-36.0); MEAN CORPUSCULAR VOLUME 106.6 fL (81.0-99.0); MEAN PLATELET VOLUME 9.1 fL (7.9-10.8); MONOCYTES # (AUTO) 0.5 10^3/uL (0.0-1.0); MONOCYTES % (AUTO) 9.9 %; NEUTROPHILS # (AUTO) 3.3 10^3/uL (1.5-6.6); NEUTROPHILS % (AUTO) 64.5 %; PLT - PLATELET COUNT 221 10^3/uL (130-450); RED BLOOD COUNT 2.58 10^6/uL (4.20-5.40); RED CELL DISTRIBUTION WIDTH 15.9 % (12.0-15.0); WHITE BLOOD COUNT 5.2 x10^3/uL (4.8-10.8)
[2021-07-26 05:25] LABS: CALCIUM 7.9 mg/dL (8.5-10.3); CREATININE 1.4 mg/dL (0.4-1.0); MAGNESIUM 2.2 mg/dL (1.7-2.8); PHOSPHORUS 5.4 mg/dL (2.5-4.6); POTASSIUM 4.4 mmol/L (3.5-5.0)
[2021-07-26 05:27] LABS: THYROID STIMULATING HORMONE 3.73 uIU/mL (0.34-5.60)
[2021-07-26] MEDS: FUROSEMIDE 40 MG/4 ML VIAL IVP SCH ×2 (05:52→12:54)
[2021-07-26 06:16] LABS: FOLATE > 49.60 ng/mL (5.90 - >24.8)
[2021-07-26] MEDS: CALCIUM CARBONATE CHEW 500 MG TABLET PO SCH ×2 (07:22→10:34)
[2021-07-26] MEDS: PANTOPRAZOLE 40 MG TABLET PO SCH (07:22)
[2021-07-26] MEDS: FORMOTEROL FUMARATE NEB 20 MCG/2 ML INH SCH (07:29)
[2021-07-26] MEDS: IPRATROPIUM/ALBUTEROL 3 ML NEB INH SCH ×4 (07:29→19:45)
[2021-07-26] MEDS: CHLORHEXIDINE GLUCONATE 15 ML UDC PO SCH ×2 (08:36→20:25)
[2021-07-26] MEDS: ASPIRIN CHEW 81 MG TABLET PO SCH (08:36)
[2021-07-26] MEDS: FAMOTIDINE 20 MG/2 ML VIAL IVP SCH (08:37)
[2021-07-26] MEDS: FERROUS GLUCONATE 324 MG TABLET PO SCH ×2 (08:37→16:52)
[2021-07-26] MEDS: FOLIC ACID 1 MG TABLET PO SCH (08:37)
[2021-07-26] MEDS: GABAPENTIN 300 MG CAPSULE PO SCH ×2 (08:38→20:24)
[2021-07-26] MEDS: METOPROLOL SUCCINATE 25 MG TABLET PO SCH (08:38)
[2021-07-26] MEDS: NICOTINE 14 MG PATCH TOP SCH (08:38)
[2021-07-26] MEDS: SODIUM CHLORIDE FLUSH 0.9% 10 ML SYRINGE IVP SCH ×2 (08:39→16:49)
--- NOTE | 2021-07-26 08:40 | PROVIDER PROGRESS NOTE ---
Subjective - Prog Note Date Prog Note Date: 07/26/21 - Subjective Pt reports feeling: Improved (Much more awake and alert, is hungry, wants crispy food now that she has her dentures in, and she thinks her leg swelling has gone down slightly.) Objective - Vital Signs/Intake & Output Reviewed Vital Signs: Yes Vital Signs: Vital Signs Pulse Pulse Resp BP Pulse Ox 07/26/21 07:33 67 20 07/26/21 07:00 73 19 93/38 L 98 07/26/21 06:00 78 72 18 110/56 L 93 07/26/21 05:00 78 19 118/63 94 Intake & Output: Intake & Output 07/23/21 07/24/21 07/25/21 07/26/21 23:59 23:59 23:59 23:59 Intake Total 150 500 Output Total 1560 1042 Balance -2042 -338 - Objective General Appearance: positive: No acute distress, Alert, Other (Obese, cushingoid appearing) Eyes Bilateral: positive: Normal inspection, PERRL ENT: positive: No signs of dehydration Neck: positive: Nml inspection, Other (Obese and cannot eval JVP) Respiratory: positive: No respiratory distress (while on O2 per n.c.), Breath sounds nml (Distant breath sounds and prolonged expiratory phase, no wheezing or rales) Cardiovascular: positive: Regular rate & rhythm, Other (Distant heart sounds due to obesity) Abdomen: positive: Non-tender, Other (Obese with a pannus, abd wall edema has resolved) Skin: positive: Warm, Dry Extremities: positive: Non-tender, Other (4+ edema to groins/upper thighs) Neurologic/Psychiatric: positive: Oriented x3 (Non-focal) - Lab Results Fish Bones: 07/26/21 04:45 07/26/21 04:45 Other Labs: Lab Results x24hrs 07/26/21 07/26/21 07/26/21 Range/Units 04:45 04:45 04:45 WBC (4.8-10.8) x10^3/uL RBC (4.20-5.40) 10^6/uL Hgb (12.0-16.0) g/dL Hct (37.0-47.0) % MCV (81.0-99.0) fL MCH (27.0-31.0) pg MCHC (32.0-36.0) g/dL RDW (12.0-15.0) % Plt Count (130-450) 10^3/uL MPV (7.9-10.8) fL Neut # (Auto) (1.5-6.6) 10^3/uL Lymph # (Auto) (1.5-3.5) 10^3/uL [place] # (Auto) (0.0-1.0) 10^3/uL Eos # (Auto) (0.0-0.7) 10^3/uL Baso # (Auto) (0.0-0.1) 10^3/uL Absolute Nucleated RBC x10^3/uL Nucleated RBC % /100WBC RBC Morph Micro Appear (NORMAL) PT (9.9-12.6) secs INR (0.8-1.2) Bld Gas Analysis Time Sample Site ABG pH (7.35-7.45) ABG pCO2 (34-45) mmHg ABG pO2 (80-100) mmHg ABG HCO3 (22.0-26.0) mmol/L ABG Total CO2 (21.0-29.0) MMOL/L ABG O2 Saturation (94-98) % ABG Base Excess (-2.0-3.0) mmol/L Hema Test VBG pH 7.369 (7.31-7.41) Ionized Calcium 1.01 L (1.15-1.33) mmol/L Respiration Rate b/min O2 Delivery Device O2 Liters/Min LPM Vent Mode FiO2 EPAP cmH2O IPAP cmH2O Sodium (135-145) mmol/L Potassium (3.5-5.0) mmol/L Chloride (101-111) mmol/L Carbon Dioxide (21-32) mmol/L Anion Gap (6-13) BUN (6-20) mg/dL Creatinine (0.4-1.0) mg/dL Estimated GFR (MDRD) (>89) Glucose (70-100) mg/dL Calcium (8.5-10.3) mg/dL Phosphorus (2.5-4.6) mg/dL Magnesium (1.7-2.8) mg/dL Iron (28-170) ug/dL TIBC (250-450) ug/dL % Saturation (20-50) % Transferrin (192-382) mg/dL Total Bilirubin (0.2-1.0) mg/dL AST (10-42) IU/L ALT (10-60) IU/L Alkaline Phosphatase (42-121) IU/L Troponin I High Sens (2.3-14.8) ng/L B-Natriuretic Peptide 800 H (5-100) pg/mL Total Protein (6.7-8.2) g/dL Albumin (3.2-5.5) g/dL Globulin (2.1-4.2) g/dL Albumin/Globulin Ratio (1.0-2.2) Lipase (22-51) U/L Vitamin B12 998 H (180-914) pg/mL Folate > 49.60 (5.90 - >24.8) ng/mL TSH 3.73 (0.34-5.60) uIU/mL Urine Color Urine Clarity (CLEAR) Urine pH (5.0-7.5) PH Ur Specific [place] (1.002-1.030) Urine Protein (NEGATIVE) mg/dL Urine Glucose (UA) (NEGATIVE) mg/dL Urine Ketones (NEGATIVE) mg/dL Urine Occult Blood (NEGATIVE) Urine Nitrite (NEGATIVE) Urine Bilirubin (NEGATIVE) Urine Urobilinogen (NORMAL) E.U./dL Ur Leukocyte Esterase (NEGATIVE) Urine RBC (0-5) /HPF Urine WBC (0-5) /HPF Ur Squamous Epith Cells (<= Few) Urine Bacteria (None Seen) /HPF Ur Microscopic Review Urine Culture Comments Nasal Screen MRSA (PCR) (NEGATIVE) SARS-CoV-2 (PCR) 07/26/21 07/26/21 07/25/21 Range/Units 04:45 04:45 18:45 WBC 5.2 (4.8-10.8) x10^3/uL RBC 2.58 L (4.20-5.40) 10^6/uL Hgb 8.0 L (12.0-16.0) g/dL Hct 27.5 L (37.0-47.0) % MCV 106.6 H (81.0-99.0) fL MCH 31.0 (27.0-31.0) pg MCHC 29.1 L (32.0-36.0) g/dL RDW 15.9 H (12.0-15.0) % Plt Count 221 (130-450) 10^3/uL MPV 9.1 (7.9-10.8) fL Neut # (Auto) 3.3 (1.5-6.6) 10^3/uL Lymph # (Auto) 1.1 L (1.5-3.5) 10^3/uL [place] # (Auto) 0.5 (0.0-1.0) 10^3/uL Eos # (Auto) 0.2 (0.0-0.7) 10^3/uL Baso # (Auto) 0.0 (0.0-0.1) 10^3/uL Absolute Nucleated RBC 0.00 x10^3/uL Nucleated RBC % 0.0 /100WBC RBC Morph Micro Appear (NORMAL) PT (9.9-12.6) secs INR (0.8-1.2) Bld Gas Analysis Time 1849 Sample Site RIGHT RADIAL ABG pH 7.33 L (7.35-7.45) ABG pCO2 65 H* (34-45) mmHg ABG pO2 87 (80-100) mmHg ABG HCO3 33.4 H (22.0-26.0) mmol/L ABG Total CO2 35.4 H (21.0-29.0) MMOL/L ABG O2 Saturation 96 (94-98) % ABG Base Excess 6.1 H (-2.0-3.0) mmol/L Hema Test POSITIVE VBG pH (7.31-7.41) Ionized Calcium (1.15-1.33) mmol/L Respiration Rate 18 b/min O2 Delivery Device BiPAP O2 Liters/Min LPM Vent Mode FiO2 30.00 EPAP 7 cmH2O IPAP 15 cmH2O Sodium 139 (135-145) mmol/L Potassium 4.4 (3.5-5.0) mmol/L Chloride 94 L (101-111) mmol/L Carbon Dioxide 34 H (21-32) mmol/L Anion Gap 11.0 (6-13) BUN 29 H (6-20) mg/dL Creatinine 1.4 H (0.4-1.0) mg/dL Estimated GFR (MDRD) 37 L (>89) Glucose 103 H (70-100) mg/dL Calcium 7.9 L (8.5-10.3) mg/dL Phosphorus 5.4 H (2.5-4.6) mg/dL Magnesium 2.2 (1.7-2.8) mg/dL Iron 17 L (28-170) ug/dL TIBC 385 (250-450) ug/dL % Saturation 4 L (20-50) % Transferrin 275 (192-382) mg/dL Total Bilirubin (0.2-1.0) mg/dL AST (10-42) IU/L ALT (10-60) IU/L Alkaline Phosphatase (42-121) IU/L Troponin I High Sens (2.3-14.8) ng/L B-Natriuretic Peptide (5-100) pg/mL Total Protein (6.7-8.2) g/dL Albumin (3.2-5.5) g/dL Globulin (2.1-4.2) g/dL Albumin/Globulin Ratio (1.0-2.2) Lipase (22-51) U/L Vitamin B12 (180-914) pg/mL Folate (5.90 - >24.8) ng/mL TSH (0.34-5.60) uIU/mL Urine Color Urine Clarity (CLEAR) Urine pH (5.0-7.5) PH Ur Specific [place] (1.002-1.030) Urine Protein (NEGATIVE) mg/dL Urine Glucose (UA) (NEGATIVE) mg/dL Urine Ketones (NEGATIVE) mg/dL Urine Occult Blood (NEGATIVE) Urine Nitrite (NEGATIVE) Urine Bilirubin (NEGATIVE) Urine Urobilinogen (NORMAL) E.U./dL Ur Leukocyte Esterase (NEGATIVE) Urine RBC (0-5) /HPF Urine WBC (0-5) /HPF Ur Squamous Epith Cells (<= Few) Urine Bacteria (None Seen) /HPF Ur Microscopic Review Urine Culture Comments Nasal Screen MRSA (PCR) (NEGATIVE) SARS-CoV-2 (PCR) 07/25/21 07/25/21 07/25/21 Range/Units 16:55 14:58 14:56 WBC (4.8-10.8) x10^3/uL RBC (4.20-5.40) 10^6/uL Hgb (12.0-16.0) g/dL Hct (37.0-47.0) % MCV (81.0-99.0) fL MCH (27.0-31.0) pg MCHC (32.0-36.0) g/dL RDW (12.0-15.0) % Plt Count (130-450) 10^3/uL MPV (7.9-10.8) fL Neut # (Auto) (1.5-6.6) 10^3/uL Lymph # (Auto) (1.5-3.5) 10^3/uL [place] # (Auto) (0.0-1.0) 10^3/uL Eos # (Auto) (0.0-0.7) 10^3/uL Baso # (Auto) (0.0-0.1) 10^3/uL Absolute Nucleated RBC x10^3/uL Nucleated RBC % /100WBC RBC Morph Micro Appear (NORMAL) PT (9.9-12.6) secs INR (0.8-1.2) Bld Gas Analysis Time Sample Site ABG pH (7.35-7.45) ABG pCO2 (34-45) mmHg ABG pO2 (80-100) mmHg ABG HCO3 (22.0-26.0) mmol/L ABG Total CO2 (21.0-29.0) MMOL/L ABG O2 Saturation (94-98) % ABG Base Excess (-2.0-3.0) mmol/L Hema Test VBG pH (7.31-7.41) Ionized Calcium (1.15-1.33) mmol/L Respiration Rate b/min O2 Delivery Device O2 Liters/Min LPM Vent Mode FiO2 EPAP cmH2O IPAP cmH2O Sodium (135-145) mmol/L Potassium (3.5-5.0) mmol/L Chloride (101-111) mmol/L Carbon Dioxide (21-32) mmol/L Anion Gap (6-13) BUN (6-20) mg/dL Creatinine (0.4-1.0) mg/dL Estimated GFR (MDRD) (>89) Glucose (70-100) mg/dL Calcium (8.5-10.3) mg/dL Phosphorus (2.5-4.6) mg/dL Magnesium (1.7-2.8) mg/dL Iron (28-170) ug/dL TIBC (250-450) ug/dL % Saturation (20-50) % Transferrin (192-382) mg/dL Total Bilirubin (0.2-1.0) mg/dL AST (10-42) IU/L ALT (10-60) IU/L Alkaline Phosphatase (42-121) IU/L Troponin I High Sens 18.8 H* (2.3-14.8) ng/L B-Natriuretic Peptide (5-100) pg/mL Total Protein (6.7-8.2) g/dL Albumin (3.2-5.5) g/dL Globulin (2.1-4.2) g/dL Albumin/Globulin Ratio (1.0-2.2) Lipase (22-51) U/L Vitamin B12 (180-914) pg/mL Folate (5.90 - >24.8) ng/mL TSH (0.34-5.60) uIU/mL Urine Color YELLOW Urine Clarity HAZY (CLEAR) Urine pH 6.0 (5.0-7.5) PH Ur Specific [place] 1.015 (1.002-1.030) Urine Protein NEGATIVE (NEGATIVE) mg/dL Urine Glucose (UA) NEGATIVE (NEGATIVE) mg/dL Urine Ketones NEGATIVE (NEGATIVE) mg/dL Urine Occult Blood NEGATIVE (NEGATIVE) Urine Nitrite POSITIVE H (NEGATIVE) Urine Bilirubin NEGATIVE (NEGATIVE) Urine Urobilinogen 0.2 (NORMAL) (NORMAL) E.U./dL Ur Leukocyte Esterase SMALL H (NEGATIVE) Urine RBC 0-5 (0-5) /HPF Urine WBC >25 H (0-5) /HPF Ur Squamous Epith Cells NONE SEEN (<= Few) Urine Bacteria Many H (None Seen) /HPF Ur Microscopic Review INDICATED Urine Culture Comments INDICATED Nasal Screen MRSA (PCR) NEGATIVE (NEGATIVE) SARS-CoV-2 (PCR) 07/25/21 07/25/21 07/25/21 Range/Units 13:37 13:22 12:19 WBC (4.8-10.8) x10^3/uL RBC (4.20-5.40) 10^6/uL Hgb (12.0-16.0) g/dL Hct (37.0-47.0) % MCV (81.0-99.0) fL MCH (27.0-31.0) pg MCHC (32.0-36.0) g/dL RDW (12.0-15.0) % Plt Count (130-450) 10^3/uL MPV (7.9-10.8) fL Neut # (Auto) (1.5-6.6) 10^3/uL Lymph # (Auto) (1.5-3.5) 10^3/uL [place] # (Auto) (0.0-1.0) 10^3/uL Eos # (Auto) (0.0-0.7) 10^3/uL Baso # (Auto) (0.0-0.1) 10^3/uL Absolute Nucleated RBC x10^3/uL Nucleated RBC % /100WBC RBC Morph Micro Appear (NORMAL) PT (9.9-12.6) secs INR (0.8-1.2) Bld Gas Analysis Time 1340 1224 Sample Site RIGHT RADIAL RIGHT BRACHIAL ABG pH 7.30 L 7.27 L (7.35-7.45) ABG pCO2 68 H* 77 H* (34-45) mmHg ABG pO2 71 L 71 L (80-100) mmHg ABG HCO3 32.8 H 34.1 H (22.0-26.0) mmol/L ABG Total CO2 34.9 H 36.5 H (21.0-29.0) MMOL/L ABG O2 Saturation 94 94 (94-98) % ABG Base Excess 5.0 H 5.5 H (-2.0-3.0) mmol/L Hema Test POSITIVE POSITIVE VBG pH (7.31-7.41) Ionized Calcium (1.15-1.33) mmol/L Respiration Rate b/min O2 Delivery Device BiPAP NASAL CANNULA O2 Liters/Min 4.00 LPM Vent Mode SYNCHRONOUS/TIMES FiO2 40.00 EPAP 5 cmH2O IPAP 12 cmH2O Sodium (135-145) mmol/L Potassium (3.5-5.0) mmol/L Chloride (101-111) mmol/L Carbon Dioxide (21-32) mmol/L Anion Gap (6-13) BUN (6-20) mg/dL Creatinine (0.4-1.0) mg/dL Estimated GFR (MDRD) (>89) Glucose (70-100) mg/dL Calcium (8.5-10.3) mg/dL Phosphorus (2.5-4.6) mg/dL Magnesium (1.7-2.8) mg/dL Iron (28-170) ug/dL TIBC (250-450) ug/dL % Saturation (20-50) % Transferrin (192-382) mg/dL Total Bilirubin (0.2-1.0) mg/dL AST (10-42) IU/L ALT (10-60) IU/L Alkaline Phosphatase (42-121) IU/L Troponin I High Sens (2.3-14.8) ng/L B-Natriuretic Peptide (5-100) pg/mL Total Protein (6.7-8.2) g/dL Albumin (3.2-5.5) g/dL Globulin (2.1-4.2) g/dL Albumin/Globulin Ratio (1.0-2.2) Lipase (22-51) U/L Vitamin B12 (180-914) pg/mL Folate (5.90 - >24.8) ng/mL TSH (0.34-5.60) uIU/mL Urine Color Urine Clarity (CLEAR) Urine pH (5.0-7.5) PH Ur Specific [place] (1.002-1.030) Urine Protein (NEGATIVE) mg/dL Urine Glucose (UA) (NEGATIVE) mg/dL Urine Ketones (NEGATIVE) mg/dL Urine Occult Blood (NEGATIVE) Urine Nitrite (NEGATIVE) Urine Bilirubin (NEGATIVE) Urine Urobilinogen (NORMAL) E.U./dL Ur Leukocyte Esterase (NEGATIVE) Urine RBC (0-5) /HPF Urine WBC (0-5) /HPF Ur Squamous Epith Cells (<= Few) Urine Bacteria (None Seen) /HPF Ur Microscopic Review Urine Culture Comments Nasal Screen MRSA (PCR) (NEGATIVE) SARS-CoV-2 (PCR) NOT DETECTED 07/25/21 07/25/21 07/25/21 Range/Units 12:06 12:06 12:06 WBC (4.8-10.8) x10^3/uL RBC (4.20-5.40) 10^6/uL Hgb (12.0-16.0) g/dL Hct (37.0-47.0) % MCV (81.0-99.0) fL MCH (27.0-31.0) pg MCHC (32.0-36.0) g/dL RDW (12.0-15.0) % Plt Count (130-450) 10^3/uL MPV (7.9-10.8) fL Neut # (Auto) (1.5-6.6) 10^3/uL Lymph # (Auto) (1.5-3.5) 10^3/uL [place] # (Auto) (0.0-1.0) 10^3/uL Eos # (Auto) (0.0-0.7) 10^3/uL Baso # (Auto) (0.0-0.1) 10^3/uL Absolute Nucleated RBC x10^3/uL Nucleated RBC % /100WBC RBC Morph Micro Appear (NORMAL) PT (9.9-12.6) secs INR (0.8-1.2) Bld Gas Analysis Time Sample Site ABG pH (7.35-7.45) ABG pCO2 (34-45) mmHg ABG pO2 (80-100) mmHg ABG HCO3 (22.0-26.0) mmol/L ABG Total CO2 (21.0-29.0) MMOL/L ABG O2 Saturation (94-98) % ABG Base Excess (-2.0-3.0) mmol/L Hema Test VBG pH (7.31-7.41) Ionized Calcium (1.15-1.33) mmol/L Respiration Rate b/min O2 Delivery Device O2 Liters/Min LPM Vent Mode FiO2 EPAP cmH2O IPAP cmH2O Sodium 137 (135-145) mmol/L Potassium 5.0 (3.5-5.0) mmol/L Chloride 94 L (101-111) mmol/L Carbon Dioxide 35 H (21-32) mmol/L Anion Gap 8.0 (6-13) BUN 29 H (6-20) mg/dL Creatinine 1.5 H (0.4-1.0) mg/dL Estimated GFR (MDRD) 35 L (>89) Glucose 138 H (70-100) mg/dL Calcium 8.0 L (8.5-10.3) mg/dL Phosphorus (2.5-4.6) mg/dL Magnesium (1.7-2.8) mg/dL Iron (28-170) ug/dL TIBC (250-450) ug/dL % Saturation (20-50) % Transferrin (192-382) mg/dL Total Bilirubin 0.5 (0.2-1.0) mg/dL AST 17 (10-42) IU/L ALT 17 (10-60) IU/L Alkaline Phosphatase 120 (42-121) IU/L Troponin I High Sens 16.9 H* (2.3-14.8) ng/L B-Natriuretic Peptide 1237 H (5-100) pg/mL Total Protein 7.2 (6.7-8.2) g/dL Albumin 3.3 (3.2-5.5) g/dL Globulin 3.9 (2.1-4.2) g/dL Albumin/Globulin Ratio 0.8 L (1.0-2.2) Lipase 42 (22-51) U/L Vitamin B12 (180-914) pg/mL Folate (5.90 - >24.8) ng/mL TSH (0.34-5.60) uIU/mL Urine Color Urine Clarity (CLEAR) Urine pH (5.0-7.5) PH Ur Specific [place] (1.002-1.030) Urine Protein (NEGATIVE) mg/dL Urine Glucose (UA) (NEGATIVE) mg/dL Urine Ketones (NEGATIVE) mg/dL Urine Occult Blood (NEGATIVE) Urine Nitrite (NEGATIVE) Urine Bilirubin (NEGATIVE) Urine Urobilinogen (NORMAL) E.U./dL Ur Leukocyte Esterase (NEGATIVE) Urine RBC (0-5) /HPF Urine WBC (0-5) /HPF Ur Squamous Epith Cells (<= Few) Urine Bacteria (None Seen) /HPF Ur Microscopic Review Urine Culture Comments Nasal Screen MRSA (PCR) (NEGATIVE) SARS-CoV-2 (PCR) 07/25/21 07/25/21 Range/Units 12:06 12:06 WBC 8.4 (4.8-10.8) x10^3/uL RBC 2.94 L (4.20-5.40) 10^6/uL Hgb 9.1 L (12.0-16.0) g/dL Hct 31.7 L (37.0-47.0) % MCV 107.8 H (81.0-99.0) fL MCH 31.0 (27.0-31.0) pg MCHC 28.7 L (32.0-36.0) g/dL RDW 15.9 H (12.0-15.0) % Plt Count 249 (130-450) 10^3/uL MPV 8.9 (7.9-10.8) fL Neut # (Auto) 6.5 (1.5-6.6) 10^3/uL Lymph # (Auto) 1.1 L (1.5-3.5) 10^3/uL [place] # (Auto) 0.5 (0.0-1.0) 10^3/uL Eos # (Auto) 0.1 (0.0-0.7) 10^3/uL Baso # (Auto) 0.1 (0.0-0.1) 10^3/uL Absolute Nucleated RBC 0.02 x10^3/uL Nucleated RBC % 0.2 /100WBC RBC Morph Micro Appear 1+ POLYCHROMASIA (NORMAL) PT 11.3 (9.9-12.6) secs INR 1.0 (0.8-1.2) Bld Gas Analysis Time Sample Site ABG pH (7.35-7.45) ABG pCO2 (34-45) mmHg ABG pO2 (80-100) mmHg ABG HCO3 (22.0-26.0) mmol/L ABG Total CO2 (21.0-29.0) MMOL/L ABG O2 Saturation (94-98) % ABG Base Excess (-2.0-3.0) mmol/L Hema Test VBG pH (7.31-7.41) Ionized Calcium (1.15-1.33) mmol/L Respiration Rate b/min O2 Delivery Device O2 Liters/Min LPM Vent Mode FiO2 EPAP cmH2O IPAP cmH2O Sodium (135-145) mmol/L Potassium (3.5-5.0) mmol/L Chloride (101-111) mmol/L Carbon Dioxide (21-32) mmol/L Anion Gap (6-13) BUN (6-20) mg/dL Creatinine (0.4-1.0) mg/dL Estimated GFR (MDRD) (>89) Glucose (70-100) mg/dL Calcium (8.5-10.3) mg/dL Phosphorus (2.5-4.6) mg/dL Magnesium (1.7-2.8) mg/dL Iron (28-170) ug/dL TIBC (250-450) ug/dL % Saturation (20-50) % Transferrin (192-382) mg/dL Total Bilirubin (0.2-1.0) mg/dL AST (10-42) IU/L ALT (10-60) IU/L Alkaline Phosphatase (42-121) IU/L Troponin I High Sens (2.3-14.8) ng/L B-Natriuretic Peptide (5-100) pg/mL Total Protein (6.7-8.2) g/dL Albumin (3.2-5.5) g/dL Globulin (2.1-4.2) g/dL Albumin/Globulin Ratio (1.0-2.2) Lipase (22-51) U/L Vitamin B12 (180-914) pg/mL Folate (5.90 - >24.8) ng/mL TSH (0.34-5.60) uIU/mL Urine Color Urine Clarity (CLEAR) Urine pH (5.0-7.5) PH Ur Specific [place] (1.002-1.030) Urine Protein (NEGATIVE) mg/dL Urine Glucose (UA) (NEGATIVE) mg/dL Urine Ketones (NEGATIVE) mg/dL Urine Occult Blood (NEGATIVE) Urine Nitrite (NEGATIVE) Urine Bilirubin (NEGATIVE) Urine Urobilinogen (NORMAL) E.U./dL Ur Leukocyte Esterase (NEGATIVE) Urine RBC (0-5) /HPF Urine WBC (0-5) /HPF Ur Squamous Epith Cells (<= Few) Urine Bacteria (None Seen) /HPF Ur Microscopic Review Urine Culture Comments Nasal Screen MRSA (PCR) (NEGATIVE) SARS-CoV-2 (PCR) Assessment/Plan - Problem List (1) Acute on chronic diastolic heart failure Impression: Diastolic heart failure (grade 3) was documented by bedside Echocardiogram w/ Doppler done yesterday. This is similar to her last Echo findings done 2 years ago. It appears that the reason for CHF exacerbation is excessive oral fluid intake, and not that she skips her medications, as per our discussion today. Continue with her beta-best and continue IV twice daily Lasix. Follow I's and O's, daily weights, daily BNP. She would need an outpatient stress test to evaluate for CAD as the cause of diastolic heart failure (2) Anasarca Impression: The patient admitted to her RN that she "sips water or liquids all day". Will add a fluid restriction to her diet. She will need dietary teaching in a patient with CHF. Continue with IV twice daily Lasix. Follow low I's and O's, she has a Bucio in while in the ICU, follow daily weight. Follow BMP and Mg daily Keep legs elevated when OOB in a chair. (3) Cor pulmonale Impression: As per Echo done yesterday. This was likely caused by longstanding COPD. Continue with IV Lasix for more diuresis, watching for hypotension which means that the right ventricle is underfilled then (4) COPD (chronic obstructive pulmonary disease) Impression: As per history. Continue with her supplemental oxygen, target O2 saturations are 88%. Continue with her inhalers in nebulized form while here. I have added nightly Singulair and scheduled inhaled steroids (5) Hypercapnic respiratory failure Impression: This has improved. Her ABG showed a normalized pH and a lower PCO2, as she was also becaming more awake last night, several hours after admission. I suspected that she may not be using her home oxygen correctly. She may turn up the setting from 2 L, loses her hypoxic toxic drive to ventilate (common in COPDers), gets CO2 retention and then narcosis. Howevere, today she denied turning up her supplemental oxygen, when I could speak to her in detail and Olivia, her DPOA who lives with her, confirmed this. She may takes excessive Ambien. Her home Ambien dose has not been restarted. She may have undiagnosed sleep apnea. Will order an overnight oximetry exam while here to see if she has sleep apnea. She may need a Trilogy device during sleep. Qualifiers: Chronicity: acute Qualified Code(s): J96.02 - Acute respiratory failure with hypercapnia (6) Diet-controlled type 2 diabetes mellitus Impression: This was learned today, it was not been on her problem list whatsoever and she was too lethargic to give a Hx yesterday. The patient reports she was on metformin before but it was stopped for unknown reasons. Will advance her diet to regular consistency, now that she has awakened, has her dentures, and will order a carb controlled diet, fingerstick checks, sliding scale insulin coverage and hypoglycemia protocol. Will check her A1c with morning labs (7) UTI (urinary tract infection) Impression: An admission urinalysis was obtained, after a Bucio was placed, after she was admitted to the ICU. The U/A shows many WBCs and bacteria and positive nitrates. She was too obtunded to describe if she had any UTI symptoms, at the time of admission. Today she was queried about this in detail. She says she is in incontinent, denies dysuria but does not know about frequency. She does michael cribe that she has a mesh hanging out of her ___, Which has been that way for a year or two. Her white blood count is not elevated, follow CBC daily. Because of the foreign object (protruding mesh), she likely has seeding which may be ascending. Because there was obtundation, we will give a complete course of treatment for UTI using oral Levaquin. Await the urine culture to tailor antibiotics. Will request a [employer] consult. 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 She claims its bladder mesh that was put in because of stress incontinence. It has "fallen out" over the last 2 years. Today her RN did a check, and did a vaginal exam and mesh is not palpable in the vagina, and currently the patient has a Bucio catheter in her bladder. Her PCP is aware of this protrusion, and she says the PCP also could not find it once when searching for it. Will request a [employer] exam and consult. Possibly she gets recurrent UTIs because of this exposed mesh. Qualifiers: Encounter type: initial encounter Qualified Code(s): T83.722A - Exposure of implanted urethral mesh into urethra, initial encounter (9) Chronic kidney disease Impression: Creatinine has improved frpom 1.5 to 1.4 today, with using IV diuretics and she is 1.5 L negative in fluid status already. This suggest that she has cardiorenal syndrome. Continue with IV diuresis. Follow I's and O's and daily weights. She has a Bucio while in the ICU and on BiPAP. Avoid nephrotoxins. Qualifiers: Chronic kidney disease stage: stage 3 (moderate) (10) Anemia Impression: Despite diuresis and (-)1.5 L fluid status, her hemoglobin has dropped from 10 to 8. Iron studies show she is very iron deficient, she has normal B12 and folate levels. Will give 1 dose of IV iron (per the new AHA guidelines in a patient with CHF), and will increase her oral iron replacement from daily to twice daily. Follow H/H daily. Transfuse if hemoglobin goes under 7 Qualifiers: Anemia type: iron deficiency Iron deficiency anemia type: unspecified iron deficiency Qualified Code(s): D50.9 - Iron deficiency anemia, unspecified (11) Metastatic non-small cell lung cancer Impression: As per Hx (12) Hypothyroidism Impression: Her TSH is in a normal range. We have resumed her home Synthroid dose. (13) Peripheral neuropathy Impression: We have resumed her usual gabapentin dose, now that she is awake (14) Tobacco abuse Impression: She does smoke a lot, up to 2 packs/day. The patient removes her nasal cannula oxygen when she smokes. Olivia is at her bedside, her DPOA and they live together, and she confirms this. We ordered nicotine patch to decrease nicotine urges while she is here (15) Encephalopathy Impression: This resolved yesterday night. She is alert and oriented x4. The head CT that was planned was canceled. Will cancel neuro checks. Etiology of this recurring now twice in 2 weeks is unclear, suspect it may be f rom a UTI vs CO2 narcosis possibly from sleep apnea or from her n.c. O2 falling off when she sleeps, she says.
[2021-07-26] MEDS: LEVOTHYROXINE 75 MCG TABLET PO SCH (08:42)
[2021-07-26] MEDS ORDERED: ESCITALOPRAM 10 MG TABLET PO SCH ×2 (09:00)
[2021-07-26] MEDS ORDERED: NICOTINE 14 MG PATCH TOP SCH (09:00)
[2021-07-26] MEDS ORDERED: FERROUS GLUCONATE 324 MG TABLET PO SCH (09:00)
[2021-07-26] MEDS ORDERED: IRON DEXTRAN 1,000 MG in SODIUM CHLORIDE 0.9% 250 ML IV ONE (10:00)
[2021-07-26] MEDS ORDERED: polyethylene glycoL 3350 17 GM PACKET PO PRN (10:27)
[2021-07-26] MEDS ORDERED: TIOTROPIUM BROMIDE 18 MCG INH SCH (10:30)
[2021-07-26] MEDS: BUDESONIDE 0.5 MG/2 ML NEB INH SCH ×2 (10:48→19:45)
[2021-07-26] MEDS: INSULIN ASPART 300 UNIT/3 ML PEN SUBQ SCH ×3 (11:57→20:29)
[2021-07-26] MEDS ORDERED: levoFLOXacin 250 MG TABLET PO SCH (13:00)
[2021-07-26] MEDS: ATORVASTATIN 40 MG TABLET PO SCH (20:24)
[2021-07-26] MEDS: MONTELUKAST 10 MG TABLET PO SCH (20:24)
[2021-07-26] MEDS: TRIAMCINOLONE 0.1% OINT 15 GM TUBE TOP SCH (20:25)
[2021-07-27] MEDS: SODIUM CHLORIDE FLUSH 0.9% 10 ML SYRINGE IVP SCH ×3 (02:26→18:03)
[2021-07-27 04:57] LABS: BASOPHILS % (AUTO) 0.1 %; EOSINOPHILS # (AUTO) 0.1 10^3/uL (0.0-0.7); HCT - HEMATOCRIT 25.2 % (37.0-47.0); HGB - HEMOGLOBIN 7.5 g/dL (12.0-16.0); LYMPHOCYTES # (AUTO) 0.6 10^3/uL (1.5-3.5); LYMPHOCYTES % (AUTO) 5.8 %; MEAN CORPUSCULAR HEMOGLOBIN 31.4 pg (27.0-31.0); MEAN CORPUSCULAR HGB CONC 29.8 g/dL (32.0-36.0); MEAN CORPUSCULAR VOLUME 105.4 fL (81.0-99.0); MEAN PLATELET VOLUME 9.4 fL (7.9-10.8); MONOCYTES # (AUTO) 0.5 10^3/uL (0.0-1.0); MONOCYTES % (AUTO) 4.9 %; NEUTROPHILS # (AUTO) 9.2 10^3/uL (1.5-6.6); NEUTROPHILS % (AUTO) 87.8 %; PLT - PLATELET COUNT 233 10^3/uL (130-450); RED BLOOD COUNT 2.39 10^6/uL (4.20-5.40); RED CELL DISTRIBUTION WIDTH 16.2 % (12.0-15.0); WHITE BLOOD COUNT 10.4 x10^3/uL (4.8-10.8)
[2021-07-27 04:58] LABS: CALCIUM, IONIZED 0.98 mmol/L (1.15-1.33); VBG PH 7.383 (7.31-7.41)
[2021-07-27 05:04] LABS: CALCIUM 7.7 mg/dL (8.5-10.3); CREATININE 1.6 mg/dL (0.4-1.0); POTASSIUM 4.3 mmol/L (3.5-5.0)
[2021-07-27] MEDS ORDERED: CALCIUM GLUCONATE IN NS 0.9% 1,000 MG/50 ML BAG IV ONE ×2 (05:05→09:10)
[2021-07-27] MEDS: FUROSEMIDE 40 MG/4 ML VIAL IVP SCH (05:40)
[2021-07-27] MEDS: PANTOPRAZOLE 40 MG TABLET PO SCH (06:14)
[2021-07-27] MEDS: IPRATROPIUM/ALBUTEROL 3 ML NEB INH SCH ×4 (07:12→19:45)
[2021-07-27] MEDS: BUDESONIDE 0.5 MG/2 ML NEB INH SCH ×2 (07:12→19:45)
[2021-07-27] MEDS: FERROUS GLUCONATE 324 MG TABLET PO SCH ×2 (08:18→18:02)
[2021-07-27] MEDS: INSULIN ASPART 300 UNIT/3 ML PEN SUBQ SCH ×4 (08:18→21:07)
[2021-07-27] MEDS: ASPIRIN CHEW 81 MG TABLET PO SCH (08:18)
[2021-07-27] MEDS: CHLORHEXIDINE GLUCONATE 15 ML UDC PO SCH ×2 (08:18→21:07)
[2021-07-27] MEDS: ESCITALOPRAM 10 MG TABLET PO SCH (08:19)
[2021-07-27] MEDS: FOLIC ACID 1 MG TABLET PO SCH (08:19)
[2021-07-27] MEDS: LEVOTHYROXINE 75 MCG TABLET PO SCH (08:19)
[2021-07-27] MEDS: METOPROLOL SUCCINATE 25 MG TABLET PO SCH (08:20)
[2021-07-27] MEDS: NICOTINE 14 MG PATCH TOP SCH (08:20)
[2021-07-27] MEDS: GABAPENTIN 300 MG CAPSULE PO SCH ×2 (08:20→21:07)
[2021-07-27] MEDS: TRIAMCINOLONE 0.1% OINT 15 GM TUBE TOP SCH ×2 (08:21→21:07)
--- NOTE | 2021-07-27 08:35 | PROVIDER PROGRESS NOTE ---
Subjective - Prog Note Date Prog Note Date: 07/27/21 - Subjective Pt reports feeling: Improved (She had a shower and feels better, she is "tired" and wants a nap) Objective - Vital Signs/Intake & Output Reviewed Vital Signs: Yes Vital Signs: Vital Signs Temp Pulse Pulse Resp BP Pulse Ox 07/27/21 07:24 37.3 C 71 21 107/64 94 07/27/21 07:19 76 12 07/27/21 05:45 80 07/27/21 05:00 37.2 C 83 19 99/60 90 L Intake & Output: Intake & Output 07/24/21 07/25/21 07/26/21 07/27/21 23:59 23:59 23:59 23:59 Intake Total 150 2150 330 Output Total 1560 3602 840 Balance -1964 -5385 -429 - Objective General Appearance: positive: No acute distress, Alert, Other (Obese WF, BMI is 34) Eyes Bilateral: positive: Normal inspection, EOMI ENT: positive: No signs of dehydration Neck: positive: Nml inspection Respiratory: positive: Other (Diminishe breath sounds anteriorly) Cardiovascular: positive: Regular rate & rhythm, Other (Distant heart sounds) Abdomen: positive: Non-tender, Other (Obese with a pannus) Skin: positive: Warm, Dry Extremities: positive: Non-tender, Other (4+ edema to mid thighs) Neurologic/Psychiatric: positive: Oriented x3 (Non-focal) - Lab Results Fish Bones: 07/27/21 15:55 07/27/21 04:24 Other Labs: Lab Results x24hrs 07/27/21 07/27/21 07/27/21 Range/Units 04:24 04:24 04:24 WBC (4.8-10.8) x10^3/uL RBC (4.20-5.40) 10^6/uL Hgb (12.0-16.0) g/dL Hct (37.0-47.0) % MCV (81.0-99.0) fL MCH (27.0-31.0) pg MCHC (32.0-36.0) g/dL RDW (12.0-15.0) % Plt Count (130-450) 10^3/uL MPV (7.9-10.8) fL Neut # (Auto) (1.5-6.6) 10^3/uL Lymph # (Auto) (1.5-3.5) 10^3/uL [place] # (Auto) (0.0-1.0) 10^3/uL Eos # (Auto) (0.0-0.7) 10^3/uL Baso # (Auto) (0.0-0.1) 10^3/uL Absolute Nucleated RBC x10^3/uL Nucleated RBC % /100WBC VBG pH 7.383 (7.31-7.41) Ionized Calcium 0.98 L (1.15-1.33) mmol/L Sodium 138 (135-145) mmol/L Potassium 4.3 (3.5-5.0) mmol/L Chloride 92 L (101-111) mmol/L Carbon Dioxide 37 H (21-32) mmol/L Anion Gap 9.0 (6-13) BUN 29 H (6-20) mg/dL Creatinine 1.6 H (0.4-1.0) mg/dL Estimated GFR (MDRD) 32 L (>89) Glucose 118 H (70-100) mg/dL Calcium 7.7 L (8.5-10.3) mg/dL B-Natriuretic Peptide 690 H (5-100) pg/mL 04/22 Range/Units 04:24 WBC 10.4 (4.8-10.8) x10^3/uL RBC 2.39 L (4.20-5.40) 10^6/uL Hgb 7.5 L (12.0-16.0) g/dL Hct 25.2 L (37.0-47.0) % MCV 105.4 H (81.0-99.0) fL MCH 31.4 H (27.0-31.0) pg MCHC 29.8 L (32.0-36.0) g/dL RDW 16.2 H (12.0-15.0) % Plt Count 233 (130-450) 10^3/uL MPV 9.4 (7.9-10.8) fL Neut # (Auto) 9.2 H (1.5-6.6) 10^3/uL Lymph # (Auto) 0.6 L (1.5-3.5) 10^3/uL [place] # (Auto) 0.5 (0.0-1.0) 10^3/uL Eos # (Auto) 0.1 (0.0-0.7) 10^3/uL Baso # (Auto) 0.0 (0.0-0.1) 10^3/uL Absolute Nucleated RBC 0.00 x10^3/uL Nucleated RBC % 0.0 /100WBC VBG pH (7.31-7.41) Ionized Calcium (1.15-1.33) mmol/L Sodium (135-145) mmol/L Potassium (3.5-5.0) mmol/L Chloride (101-111) mmol/L Carbon Dioxide (21-32) mmol/L Anion Gap (6-13) BUN (6-20) mg/dL Creatinine (0.4-1.0) mg/dL Estimated GFR (MDRD) (>89) Glucose (70-100) mg/dL Calcium (8.5-10.3) mg/dL B-Natriuretic Peptide (5-100) pg/mL Assessment/Plan - Problem List (1) Encephalopathy Impression: Confusion and obtundation recurred last evening. She became hypersomnolent and confused, documented her RN. Etiology is likely hypercapnia, which is likely caused by obesity- hypoventilation syndrome. Her RN had the BIPAP restarted by RT when the lethargy was seen, and in 1-2 hours she was more alert and less confused. This is on top of the UTI possibly making her confused. We started antibx yesterday for the UTI . We will now keep her on nightly BIPAP and a Trilogy machine is indicated (see below). Remain in the ICU, but Bucio to be removed and increased activity planned during the day. (2) Obesity hypoventilation syndrome Impression: I suspect this is her diagnosis. She has now had 2 admissions with obtundation with documented hypercapnia, and her mental status improves with CO2 being ventilated off. Will order PT eval to increase activity. (3) Hypercapnic respiratory failure Impression: This recurred last evening. She became hypersomnolent and confused, documented her RN. Her RN had the BIPAP restarted by RT, when the lethargy was seen, and in 1-2 hours she was more alert and less confused. Etiology of her obtundation is likely the hypercapnia. We will now keep her on nightly BIPAP in the ICU while she is here, and a non- invasive ventilator (like a Trilogy machine) is indicated. This patient has chronic respiratory failure with hypercapnia, COPD and lung CA. Noninvasive ventilator is required to reduce hospitalization and improve patient health. BiPAP was considered and deemed ineffective. I am ordering a Non- invasive ventilator for her use. Qualifiers: Chronicity: acute on chronic Qualified Code(s): J96.22 - Acute and chronic respiratory failure with hypercapnia (4) Acute on chronic diastolic heart failure Impression: Diastolic heart failure (grade 3) was documented by bedside Echocardiogram w/ Doppler done 2 days ago. This is similar to her last Echo findings done 2 years ago. She is diuresing well, has had 1.5 L negative fluid balance for 2 days. BNP has improved 1200>> 800>> 690 today. Continue with beta-best and fluid restriction orders (since yesterday she drank 3L) Because her blood pressures are becoming "soft", we will stop the IV Lasix and change to p.o. Lasix. She will need CHF training regarding decreasing salt use and limiting her total fluid intake per day, as she admitted she sips liquids all day long at home. Will order a Nutrition consult. (5) Anasarca Impression: This is improving, her pitting edema is now down to her mid legs, not abdominal wall. She is diuresing well, has had 1.5 L negative fluid balance for 2 days. Keep leg elevated when OOB in chair. Because of "soft" BPs, will change iv b.i.d. Lasix to oral once daily Lasix starting tomorrow. Will order Nutrition consult for CHF teaching of decreased salt and fluid intake. (6) Cor pulmonale Impression: As per Echo done 2 days ago. Because her blood pressures are becoming "soft", the right ventricle is now underfilling, secondary to aggressive diuresis. Will change the IV Lasix to p.o. Lasix. She will need CHF training regarding limiting her total fluid intake per day as she admitted she sips liquids all day long at home. Will order a Nutrition consult. (7) COPD (chronic obstructive pulmonary disease) Impression: Continue with nebulizer treatments,N her new nightly Singulair, and the supplemental O2, with oxygen saturations of 88% and above are acceptable. She is not in a COPD exacerbation, and is not on IV steroids at this time. (8) Anemia Impression: She has a marked anemia, today the hemoglobin is 7.5, down from 8 yesterday and at admission Hgb was 9.1. This is despite being 3 L negative in fluid balance since admission. There are no signs of active bleeding anywhere. Will order a stool guaiac test. IV iron x1 was administered yesterday. Continue with oral iron supplementation, increased to b.i.d. We will follow H/H every 12 hours and transfuse if hemoglobin under 7. Qualifiers: Anemia type: iron deficiency Iron deficiency anemia type: unspecified iron deficiency Qualified Code(s): D50.9 - Iron deficiency anemia, unspecified (9) Diet-controlled type 2 diabetes mellitus Impression: This was learned yesterday, it was not been on her problem list whatsoever and she was too lethargic to give a Hx at admission. The patient reports she was on metformin before but it was stopped for unknown reasons. We ordered a carb controlled diet, fingerstick checks, sliding scale insulin coverage and hypoglycemia protocol. Her A1c result is pending, since it is now a send-out test (10) UTI (urinary tract infection) Impression: Her U/A shows many WBCs and bacteria and positive nitrates. She was too obtunded to describe if she had any UTI symptoms, at the time of admission. Yesterday she was queried about this in detail. She says she is in incontinent, denies dysuria but does not know about frequency. She does describe that she has a mesh hanging out of her urethra, which has been that way for a year or two. Her white blood count was not elevated, follow CBC daily. Because of the foreign object (protruding mesh), she likely has seeding which may be ascending into her bladder. Because there was obtundation, we will give a complete course of treatment for UTI using oral Levaquin. Await the urine culture to tailor antibiotics. Will request a [employer] consult. Will order OT eval regarding her ADLs (toileting technique). 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 She claims it is mesh put in for b;adder suspension because she had stress incontinence. It has "fallen out" over the last 2 years. PCP is aware of this protrusion, and she says the PCP could not find it once when searching for it. Her RN did a check, and did a vaginal exam and mesh is not palpable in the vagina, and currently the patient has a Bucio catheter in her bladder. Will request a [employer] exam and consult. Possibly she gets recurrent UTIs because of this exposed mesh. Will order OT eval regarding her ADLs (toileting technique). Qualifiers: Encounter type: subsequent encounter Qualified Code(s): T83.722D - Exposure of implanted urethral mesh into urethra, subsequent encounter (12) Chronic kidney disease Impression: Creatinine is stable at 1.4 to 1.5, despite using IV diuretics and she is 3 L negative in fluid status already. This suggest that she has cardiorenal syndrome. Continue with diuretics Follow I's and O's and daily weights. Avoid nephrotoxins. Bucio to be removed today Qualifiers: Chronic kidney disease stage: stage 3 (moderate) (13) Metastatic non-small cell lung cancer Impression: As per Hx. Status of her chemo is unknown. (14) Hypothyroidism Impression: Her TSH is in a normal range. We have resumed her home Synthroid dose. (15) Peripheral neuropathy Impression: We have resumed her usual gabapentin dose, now that she becomes more awake (16) Tobacco abuse Impression: She does smoke a lot, up to 2 packs/day. The patient removes her nasal cannula oxygen when she smokes, which Olivia confirmed. We ordered nicotine patch to decrease nicotine urges while she is here. (17) Depression Impression: She admits to being depressed and says her Lexapro works "just a tiny bit" We increased her Lexapro from 10 to 20 mg daily.
[2021-07-27 09:03] LABS: ESTIMATED AVERAGE GLUCOSE 85 mg/dL (70-100); HEMOGLOBIN A1c% 4.6 % (4.27-6.07)
[2021-07-27 09:07] LABS: CALCIUM, IONIZED 1.01 mmol/L (1.15-1.33); VBG PH 7.355 (7.31-7.41)
--- NOTE | 2021-07-27 10:37 | PHARMACY PROGRESS NOTE ---
- Best Possible Medication History Admit Date and Time: 07/25/21 1326 Processed by: Pharmacy Medication History completed: Yes Patient Interview: Pt unable to participate Secondary Source(s): Pharmacy records, Insurance records, Previous admit records As the person ultimately responsible for medication therapy, providers are able to order a medication from an existing home medication list in [facility] via the "Reconcile Routine" prior to Confirmation of that medication by support dba. Such practice is discouraged except when the physician, in their clinical judgment, deems that a medical need exists for a medication without regard to previous use.
[2021-07-27] MEDS: levoFLOXacin 250 MG TABLET PO SCH (15:30)
[2021-07-27 15:59] LABS: CALCIUM, IONIZED 0.96 mmol/L (1.15-1.33); HCT - HEMATOCRIT 25.8 % (37.0-47.0); HGB - HEMOGLOBIN 7.6 g/dL (12.0-16.0); VBG PH 7.517 (7.31-7.41)
[2021-07-27] MEDS ORDERED: CALCIUM GLUCONATE IN NS 0.9% 2,000 MG/100 ML BAG IV ONE ×2 (16:23→22:46)
[2021-07-27] MEDS: ATORVASTATIN 40 MG TABLET PO SCH (21:08)
[2021-07-27] MEDS: MONTELUKAST 10 MG TABLET PO SCH (21:08)
[2021-07-27] MEDS: SODIUM CHLORIDE FLUSH 0.9% 10 ML SYRINGE IVP PRN ×2 (22:26→23:00)
[2021-07-27 22:30] LABS: CALCIUM, IONIZED 0.99 mmol/L (1.15-1.33); VBG PH 7.458 (7.31-7.41)
[2021-07-28] MEDS: SODIUM CHLORIDE FLUSH 0.9% 10 ML SYRINGE IVP SCH ×3 (00:07→17:47)
[2021-07-28] MEDS: SODIUM CHLORIDE FLUSH 0.9% 10 ML SYRINGE IVP PRN ×2 (02:26→06:23)
[2021-07-28 02:31] LABS: CALCIUM, IONIZED 1.04 mmol/L (1.15-1.33); VBG PH 7.426 (7.31-7.41)
[2021-07-28] MEDS ORDERED: CALCIUM GLUCONATE IN NS 0.9% 1,000 MG/50 ML BAG IV ONE ×2 (03:20→07:30)
[2021-07-28] MEDS: PANTOPRAZOLE 40 MG TABLET PO SCH (06:23)
[2021-07-28 06:26] LABS: BASOPHILS % (AUTO) 0.1 %; EOSINOPHILS # (AUTO) 0.4 10^3/uL (0.0-0.7); HCT - HEMATOCRIT 24.5 % (37.0-47.0); HGB - HEMOGLOBIN 7.3 g/dL (12.0-16.0); LYMPHOCYTES # (AUTO) 1.1 10^3/uL (1.5-3.5); MEAN CORPUSCULAR HEMOGLOBIN 31.1 pg (27.0-31.0); MEAN CORPUSCULAR HGB CONC 29.8 g/dL (32.0-36.0); MEAN CORPUSCULAR VOLUME 104.3 fL (81.0-99.0); MONOCYTES # (AUTO) 0.6 10^3/uL (0.0-1.0); MONOCYTES % (AUTO) 8.4 %; NEUTROPHILS # (AUTO) 5.1 10^3/uL (1.5-6.6); NEUTROPHILS % (AUTO) 71.1 %; PLT - PLATELET COUNT 220 10^3/uL (130-450); RED BLOOD COUNT 2.35 10^6/uL (4.20-5.40); RED CELL DISTRIBUTION WIDTH 16.2 % (12.0-15.0); WHITE BLOOD COUNT 7.2 x10^3/uL (4.8-10.8)
[2021-07-28 06:27] LABS: CALCIUM, IONIZED 1.09 mmol/L (1.15-1.33); VBG PH 7.378 (7.31-7.41)
[2021-07-28 06:38] LABS: CALCIUM 8.6 mg/dL (8.5-10.3); CREATININE 1.5 mg/dL (0.4-1.0); MAGNESIUM 2.1 mg/dL (1.7-2.8); PHOSPHORUS 4.7 mg/dL (2.5-4.6); POTASSIUM 4.1 mmol/L (3.5-5.0)
[2021-07-28] MEDS: GABAPENTIN 300 MG CAPSULE PO SCH ×2 (08:06→20:35)
[2021-07-28] MEDS: ESCITALOPRAM 10 MG TABLET PO SCH (08:09)
[2021-07-28] MEDS: LEVOTHYROXINE 75 MCG TABLET PO SCH (08:10)
[2021-07-28] MEDS: METOPROLOL SUCCINATE 25 MG TABLET PO SCH (08:18)
[2021-07-28] MEDS: FERROUS GLUCONATE 324 MG TABLET PO SCH ×2 (08:18→16:59)
[2021-07-28] MEDS: FOLIC ACID 1 MG TABLET PO SCH (08:18)
[2021-07-28] MEDS: ASPIRIN CHEW 81 MG TABLET PO SCH (08:19)
[2021-07-28] MEDS: NICOTINE 14 MG PATCH TOP SCH (08:21)
[2021-07-28] MEDS: INSULIN ASPART 300 UNIT/3 ML PEN SUBQ SCH ×4 (08:29→20:36)
[2021-07-28] MEDS: CHLORHEXIDINE GLUCONATE 15 ML UDC PO SCH ×2 (08:32→20:36)
[2021-07-28] MEDS: IPRATROPIUM/ALBUTEROL 3 ML NEB INH SCH ×4 (08:35→19:12)
[2021-07-28] MEDS: BUDESONIDE 0.5 MG/2 ML NEB INH SCH ×2 (08:35→19:12)
[2021-07-28] MEDS: TRIAMCINOLONE 0.1% OINT 15 GM TUBE TOP SCH ×2 (08:38→23:37)
[2021-07-28] MEDS ORDERED: FUROSEMIDE 40 MG TABLET PO SCH (09:00)
[2021-07-28] MEDS: levoFLOXacin 250 MG TABLET PO SCH (12:23)
--- NOTE | 2021-07-28 12:43 | CONSULTATION NOTE ---
Palliative Care Follow Up - Referral Referring Provider: Liliya Whitney MD Time of Visit: [id number] Referral setting: Hospitalized patient Referral Reason: Goals of Care/CHF (new dx) /COPD exacerbation/Met Lung CA - Information Sources Records reviewed: Previous records reviewed History/Review of Systems obtained from: Patient, Nursing Exam limitations: Clinical condition (short term memory issues) - History of Present Illness Update Brief HPI Update: This is a 70-year-old woman with metastatic lung cancer, recently to start her new cancer treatment sotorasib, an oral agent. . I had seen her at home on Wednesday AM in follow-up from her last hospitalization for encephalopathy, acute respiratory failure with hypoxia and UTI. Unfortunately I found her hypoxia, worsening lower extremity edema, scattered wheezes and diminished breath sounds throughout, as well as encephalopathy. Given patient's goals to be able to treat reversible conditions, 911 was called, and patient was admitted.She has improved, she is conversant able to have conversation, she is still quite breathless, did have 1 period of hypersomnolent and confused, this was thought to be caused by obesityhypoventilation syndrome. She has been receiving BiPAP with naps and with nighttime. They are looking at noninvasive ventilator for her to use at home, awaiting follow-up regarding this. Patient does understand that this is necessary, but is overwhelmed by multiple things including her new diagnosis of acute on chronic diastolic heart failure grade 3, they were able to diurese her, she is feeling better lower extremity edema is improved. She has been receiving nebulizer treatments here, reports these helped, patient does have a nebulizer at home, but medications, she also was not able to pear picker this by review because of cost. Patient's fluid overload was thought to be exacerbated by her consistent high fluid intake, she is worried about her "sugars", though her A1c is in good range. She has actually lost underlying body mass, though she presented with increased weight with anasarca. Because of her weight loss she was stopped metformin, as she was also having some diarrhea. She is worried about compliant with a low-salt diet, her fluid restrictions, and now new medications. We did discuss having increased support which would include visiting nurse that would be able to monitor and help with medications and understanding of new non invasive ventalitory support.. Past Medical History: visiting nurse to help with these adjustments. Hypertension, high cholesterol, history of MS, COPD, emphysema, lung cancer, peripheral neuropathy, type 2 diabetes, hypothyroidism, chronic incontinence, chronic vision loss, depression, anxiety, osteoarthritis, fatigue Social History - Living Situation Living arrangement: At home Living Situation: With friend(s) Support System: Patient lives in apartment with her termite inspector good friend BESS, who provides caregiving support, shopping, transportation. She is also very dependent on her for emotional support as well as been designated her DPOA. [place]daughter Juan Ramon who is very close to her. 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 She does live in a apartment in a house that is one-story level of stairs up. She has been declining functionally and needing increased assistance Medications/Allergies - Medications Active Medication List: Active Medications Acetaminophen (Acetaminophen 325 Mg Tablet) 650 mg PO Q4HR PRN PRN Reason: Pain 1 to 4, or Fever Hydrocodone Bitart/Acetaminophen (Hydrocod/Acetam 5/325 Mg Tablet) 1 tab PO TID PRN PRN Reason: PAIN Last Admin: 07/26/21 20:24 Dose: 1 tab Albuterol/Ipratropium (Ipratropium/Albuterol 3 Ml Neb) 3 ml INH RTQID [facility] Last Admin: 07/28/21 12:39 Dose: Not Given Albuterol/Ipratropium (Ipratropium/Albuterol 3 Ml Neb) 3 ml INH Q4HR PRN PRN Reason: Wheezing Aspirin (Aspirin Chew 81 Mg Tablet) 81 mg PO DAILY [facility] Last Admin: 07/28/21 08:19 Dose: 81 mg Atorvastatin Calcium (Atorvastatin 40 Mg Tablet) 40 mg PO HS [facility] Last Admin: 07/27/21 21:08 Dose: 40 mg Budesonide (Budesonide 0.5 Mg/2 Ml Neb) 0.5 mg INH RTBID [facility] Last Admin: 07/28/21 08:35 Dose: 0.5 mg Chlorhexidine Gluconate (Chlorhexidine Gluconate 15 Ml Udc) 15 ml PO BID [facility] Last Admin: 07/28/21 08:32 Dose: 15 ml Escitalopram Oxalate (Escitalopram 10 Mg Tablet) 20 mg PO DAILY [facility] Last Admin: 07/28/21 08:09 Dose: 20 mg Ferrous Gluconate (Ferrous Gluconate 324 Mg Tablet) 324 mg PO BIDWM [facility] Last Admin: 07/28/21 08:18 Dose: 324 mg Folic Acid (Folic Acid 1 Mg Tablet) 1 mg PO DAILY [facility] Last Admin: 07/28/21 08:18 Dose: 1 mg Furosemide (Furosemide 40 Mg Tablet) 40 mg PO DAILY [facility] Last Admin: 07/28/21 08:18 Dose: 40 mg Gabapentin (Gabapentin 300 Mg Capsule) 600 mg PO BID [facility] Last Admin: 07/28/21 08:06 Dose: 600 mg Insulin Aspart (Insulin Aspart 300 Unit/3 Ml Pen) 1 - 5 unit SUBQ 0800,1200,1700,2100 [facility]; Protocol Last Admin: 07/28/21 11:48 Dose: Not Given Levofloxacin (Levofloxacin 250 Mg Tablet) 250 mg PO 1300 [facility] Stop: 07/30/21 23:00 Last Admin: 07/28/21 12:23 Dose: 250 mg Levothyroxine Sodium (Levothyroxine 75 Mcg Tablet) 75 mcg PO DAILY [facility] Last Admin: 07/28/21 08:10 Dose: 75 mcg Metoprolol Succinate (Metoprolol Succinate 25 Mg Tablet) 25 mg PO DAILY [facility] Last Admin: 07/28/21 08:18 Dose: 25 mg Mineral Oil (Min Oil/Dimethicon/Coconut Oil 92 Gm Tube) 1 applic TOP PRN PRN PRN Reason: Skin Care Last Admin: 07/25/21 20:22 Dose: 1 applic Montelukast Sodium (Montelukast 10 Mg Tablet) 10 mg PO QPM [facility] Last Admin: 07/27/21 21:08 Dose: 10 mg Nicotine (Nicotine 14 Mg Patch) 1 patch TOP DAILY [facility] Last Admin: 07/28/21 08:21 Dose: 1 patch Ondansetron HCl (Ondansetron 4 Mg/2 Ml Vial) 4 mg IVP Q6HR PRN PRN Reason: Nausea / Vomiting Pantoprazole Sodium (Pantoprazole 40 Mg Tablet) 40 mg PO QDAC [facility] Last Admin: 07/28/21 06:23 Dose: 40 mg Polyethylene Glycol (Polyethylene Glycol 3350 17 Gm Packet) 17 gm PO DAILY PRN PRN Reason: Constipation Sodium Chloride (Sodium Chloride Flush 0.9% 10 Ml Syringe) 10 ml IVP 0100,0900,1700 [facility] Last Admin: 07/28/21 08:06 Dose: 10 ml Sodium Chloride (Sodium Chloride Flush 0.9% 10 Ml Syringe) 10 ml IVP PRN PRN PRN Reason: NEEDED PER PROVIDER ORDERS Last Admin: 07/28/21 06:23 Dose: 20 ml Triamcinolone Acetonide (Triamcinolone 0.1% Oint 15 Gm Tube) 1 applic TOP BID [facility] Last Admin: 07/28/21 08:38 Dose: 1 applic Levothyroxine [Synthroid] 75 mcg PO DAILY 10/04/18 Zolpidem [Ambien] 10 mg ORAL QPM PRN 04/18/19 polyethylene glycoL 3350 [Miralax] 8.5 - 17 gm PO DAILY PRN 01/09/20 Gabapentin 600 mg PO BID 02/06/20 Omeprazole 40 mg PO DAILY 07/23/20 Folic Acid 1 mg PO DAILY 10/08/20 Metoprolol Succinate [Toprol Xl] 25 mg PO DAILY 11/13/20 Ferrous Gluconate 324 mg PO DAILY 05/27/21 HYDROcod/ACETAM 5/325 [[place] 5/325] 1 - 2 tab PO TID PRN 05/27/21 Sotorasib [Lumakras] 960 mg PO DAILY MDD due to start 07/2506/25/21 Tiotropium [place] [Spiriva] 1 puffs INH DAILY 07/25/21 Triamcinolone Acetonide 1 applic TOP BID 07/25/21 - Allergies Allergies/Adverse Reactions: Allergies Allergy/AdvReac Type Severity Reaction Status Date / Time No Known Drug Allergies Allergy Verified 07/25/21 12:02 Review of Systems - Constitutional Constitutional: reports: Fatigue (most problematic symptom), Weakness (worsening, needing walker for all ambulation new last few weeks; currently weak and in bed), Night sweats, Weight gain (appears mostly fluid) - Eyes Eyes: reports: Blurred vision, Vision loss - Ears, Nose & Throat Ears, Nose & Throat: reports: Hearing loss, Dentures, Dry mouth - Cardiovascular Cardiovascular: reports: Edema (much improved), Exertional dyspnea, Decr. exercise tolerance. denies: Palpitations, Chest pain - Respiratory Respiratory: reports: Cough (coughing spasms), Sputum production, Wheezing, Orthopnea, SOB at rest, SOB with exertion, Other (reports was smoking 3 packs a day;) - Gastrointestinal Gastrointestinal: reports: Poor appetite, Early satiety. denies: Constipation (hx of difficulty reports went last nigh), Reflux/heartburn - Genitourinary Genitourinary: reports: Other (currently with stringer catheter) - Musculoskeletal Musculoskeletal: reports: Back pain, Stiffness, Muscle weakness, Assistive devices (uses walker now even for short distances at home; ADLS have been more difficult) - Integumentary Integumentary: reports: Dryness - Neurological Neurological: reports: General weakness, Numbness (bilateral peripheral neuropathy), Memory problems (STM; can't remember our visit I sent her in) - Psychiatric Psychiatric: reports: Depression, Anxiety (wants to get home) - Endocrine Endocrine: reports: Diabetes type 2, Hypothyroidism - Hematologic/Lymphatic Hematologic/Lymph: reports: Anemia (9.0) - All Other Systems All Other Systems: reports: Other (limited) Physical Exam - Vital Signs Vital Signs: Vital Signs x48h Temp Pulse Pulse Pulse Pulse Resp BP 07/28/21 12:00 37.1 C 76 21 07/28/21 10:00 83 72 102/55 L 07/28/21 08:38 70 18 07/28/21 07:56 37.2 C 69 23 07/28/21 05:50 76 07/28/21 05:25 71 BP BP Pulse Ox Pulse Ox 07/28/21 12:00 120/56 L 94 07/28/21 10:00 110/54 L 89 L 07/28/21 08:38 07/28/21 07:56 110/48 L 96 07/28/21 05:50 07/28/21 05:25 - Physical Exam General Appearance: positive: No acute distress, Alert, Anxious (with new DX and instructions) Eyes Bilateral: positive: No scleral icterus Neck: positive: Trachea midline Cardiovascular: positive: Regular rate & rhythm Respiratory: positive: Diminished throughout. negative: No respiratory distress (more respiratory effort with conversation; movement), Wheezes Abdomen: positive: Soft, Other (rounded) Skin: positive: Pallor, Dryness Extremities: positive: Pedal edema (has SCDs on; appears improved from Wednesday) Neurologic/Psychiatric: positive: Oriented x3, Weakness, Depressed mood/affect, Flat affect Palliative Care - POLST Patient has POLST: Yes POLST Status: DNR, Selective Treatment Pain: Pain improved, Location (bilateral peripheral edema) Tiredness/Fatigue: Severe (7-10) Drowsiness/Sedation: Moderate (4-6) Nausea: Mild (1-3) Anorexia: Moderate (4-6) Dyspnea: Moderate (4-6) Depression: Mild (1-3) Anxiety: Moderate (4-6) (with pending discharge) Feelings of wellbeing/Perceived Quality of Life: Fair, Acceptable, Worsening Sleep: Variable sleep pattern Constipation: Yes, Opoid induced, Unmanaged Performance Status: Patient is quite weak, limited both by lower extremity weakness, as well as her breathlessness. Has not been needing increased assistance with ADLs. Will benefit from home health PT/OT and home health aide. Would recommend adding RN for medication adherence/disease teaching, and follow-up on new noninvasive - Palliative Care Discussion: Patient is easily overwhelmed, and trying to grasp her new instructions and diagnosis of CHF, fluid restrictions, sodium restrictions, and watching her "sugars". She reports to me that "cancer is the least of my problems", she does have her new medications at home for her cancer to be started as soon as able.She does understand that if she were to return yet again, it will be for the "last time", she does understand the seriousness of her current situation and is scared. She does admit she has been smoking 3 packs a day, her plan is to cut back to 1 pack, we did discuss if she were smoking continuously then she would not be wearing her oxygen or using her new machine as instructed. She verbalized understanding. We discussed creating another layer support as including Olivia for her training for her noninvasive ventilator support, as wel l as having home health bring in nursing assistance, this was reassuring for patient. Patient continues to hope for the best, and is wanting to set some goals to be "better". Patient does have a POLST with DO NOT RESUSCITATE/DNI and selective treatments, patient did clarify with last admit she does not want to be on a ventilator, but is excepting of BiPAP and home support. Results - Lab Results Lab results reviewed: Yes Fish Bones: 07/28/21 06:12 07/28/21 06:12 Lab and Imaging Results: Lab Results x24hrs 07/28/21 07/28/21 07/28/21 Range/Units 06:12 06:12 06:12 WBC 7.2 (4.8-10.8) x10^3/uL RBC 2.35 L (4.20-5.40) 10^6/uL Hgb 7.3 L (12.0-16.0) g/dL Hct 24.5 L (37.0-47.0) % MCV 104.3 H (81.0-99.0) fL MCH 31.1 H (27.0-31.0) pg MCHC 29.8 L (32.0-36.0) g/dL RDW 16.2 H (12.0-15.0) % Plt Count 220 (130-450) 10^3/uL MPV 9.0 (7.9-10.8) fL Neut # (Auto) 5.1 (1.5-6.6) 10^3/uL Lymph # (Auto) 1.1 L (1.5-3.5) 10^3/uL [place] # (Auto) 0.6 (0.0-1.0) 10^3/uL Eos # (Auto) 0.4 (0.0-0.7) 10^3/uL Baso # (Auto) 0.0 (0.0-0.1) 10^3/uL Absolute Nucleated RBC 0.00 x10^3/uL Nucleated RBC % 0.0 /100WBC VBG pH 7.378 (7.31-7.41) Ionized Calcium 1.09 L (1.15-1.33) mmol/L Sodium 135 (135-145) mmol/L Potassium 4.1 (3.5-5.0) mmol/L Chloride 91 L (101-111) mmol/L Carbon Dioxide 34 H (21-32) mmol/L Anion Gap 10.0 (6-13) BUN 31 H (6-20) mg/dL Creatinine 1.5 H (0.4-1.0) mg/dL Estimated GFR (MDRD) 35 L (>89) Glucose 89 (70-100) mg/dL Calcium 8.6 (8.5-10.3) mg/dL Phosphorus 4.7 H (2.5-4.6) mg/dL Magnesium 2.1 (1.7-2.8) mg/dL 07/28/21 07/27/21 07/27/21 Range/Units 02:24 22:24 15:55 WBC (4.8-10.8) x10^3/uL RBC (4.20-5.40) 10^6/uL Hgb (12.0-16.0) g/dL Hct (37.0-47.0) % MCV (81.0-99.0) fL MCH (27.0-31.0) pg MCHC (32.0-36.0) g/dL RDW (12.0-15.0) % Plt Count (130-450) 10^3/uL MPV (7.9-10.8) fL Neut # (Auto) (1.5-6.6) 10^3/uL Lymph # (Auto) (1.5-3.5) 10^3/uL [place] # (Auto) (0.0-1.0) 10^3/uL Eos # (Auto) (0.0-0.7) 10^3/uL Baso # (Auto) (0.0-0.1) 10^3/uL Absolute Nucleated RBC x10^3/uL Nucleated RBC % /100WBC VBG pH 7.426 H 7.458 H 7.517 H (7.31-7.41) Ionized Calcium 1.04 L 0.99 L 0.96 L (1.15-1.33) mmol/L Sodium (135-145) mmol/L Potassium (3.5-5.0) mmol/L Chloride (101-111) mmol/L Carbon Dioxide (21-32) mmol/L Anion Gap (6-13) BUN (6-20) mg/dL Creatinine (0.4-1.0) mg/dL Estimated GFR (MDRD) (>89) Glucose (70-100) mg/dL Calcium (8.5-10.3) mg/dL Phosphorus (2.5-4.6) mg/dL Magnesium (1.7-2.8) mg/dL 07/27/21 Range/Units 15:55 WBC (4.8-10.8) x10^3/uL RBC (4.20-5.40) 10^6/uL Hgb 7.6 L (12.0-16.0) g/dL Hct 25.8 L (37.0-47.0) % MCV (81.0-99.0) fL MCH (27.0-31.0) pg MCHC (32.0-36.0) g/dL RDW (12.0-15.0) % Plt Count (130-450) 10^3/uL MPV (7.9-10.8) fL Neut # (Auto) (1.5-6.6) 10^3/uL Lymph # (Auto) (1.5-3.5) 10^3/uL [place] # (Auto) (0.0-1.0) 10^3/uL Eos # (Auto) (0.0-0.7) 10^3/uL Baso # (Auto) (0.0-0.1) 10^3/uL Absolute Nucleated RBC x10^3/uL Nucleated RBC % /100WBC VBG pH (7.31-7.41) Ionized Calcium (1.15-1.33) mmol/L Sodium (135-145) mmol/L Potassium (3.5-5.0) mmol/L Chloride (101-111) mmol/L Carbon Dioxide (21-32) mmol/L Anion Gap (6-13) BUN (6-20) mg/dL Creatinine (0.4-1.0) mg/dL Estimated GFR (MDRD) (>89) Glucose (70-100) mg/dL Calcium (8.5-10.3) mg/dL Phosphorus (2.5-4.6) mg/dL Magnesium (1.7-2.8) mg/dL Impression and Recommendations - Palliative Care Impression: This is a 70-year-old woman who presented with acute on chronic respiratory failure, acute on chronic heart failure, is feeling somewhat better, and continue to improve. Patient though is much more compromised, with functional decline, and now increasing complexity of her care. She does get fairly easily overwhelmed as well as severe anxiety.Patient goals are to continue with support for both quality and quantity of life. Palliative care providing support on symptom management, anticipatory guidance, and definition of goals. Recommendations/Counseling Done: 1. Acute on chronic heart failure. This is a new diagnosis for the patient, she has been instructed on low-salt and fluid restriction of 2 L. She is already finding this overwhelming, but knows that she "has to do it". Patient at high risk for reaccumulation, will continue to monitor, would add nursing services to home health support. 2. COPD. Patient does have a nebulizer at home, but medications. This was shared with hospitalist as well as patient is not on Spiriva as she could not afford the last prescription on discharge from hospital. 3. Acute on chronic respiratory failure. This is multifactorial, and exacerbated by patient's continual smoking. We did set goals regarding tobacco cessation, she is on nicotine patch but anxious to go home. Patient has also benefited from the nebulizers, she has told multiple times to initiate and add to her regimen, at home visit had confirmed has nebulizer machine, but medications. 4. Medication adherence. I believe having home health RN involved and more close oversight will be able to better discern effectiveness and adherence of interventions. 5. Advance care planning. Patient continues to hope for both extended quantity of life, as well as improving quality of life. She is feeling much better, reports she is breathing better and less discomfort with her edema controlled. She is feeling overwhelmed with her new diagnoses and instructions, she is always struggled with medication adherence and compliance for better wellbeing and health. She does understand that things are getting more complex, and that she is getting worse overall. She still believes her current quality of life is such, wants to continue with treatment options and managing her health care problems. Her ultimate goal though at end of life is to be home. 40 minutes with greater than 50% of this done in counseling and of care with hospitalist team
--- NOTE | 2021-07-28 13:41 | PROVIDER PROGRESS NOTE ---
Subjective - Prog Note Date Prog Note Date: 07/28/21 - Subjective Subjective: She is lethargic, confused and somnolent as I awoke her from a nap after lunch, and oxygen saturations are at 85% by continuous sat monitor, despite being on O2 by n.c. Then she falls right back asleep. Objective - Vital Signs/Intake & Output Reviewed Vital Signs: Yes Vital Signs: Vital Signs Temp Pulse Pulse Pulse Pulse Resp BP 07/28/21 13:34 74 07/28/21 12:00 37.1 C 76 21 07/28/21 10:00 83 72 102/55 L BP BP Pulse Ox Pulse Ox 07/28/21 13:34 07/28/21 12:00 120/56 L 94 07/28/21 10:00 110/54 L 89 L Intake & Output: Intake & Output 07/25/21 07/26/21 07/27/21 07/28/21 23:59 23:59 23:59 23:59 Intake Total 150 2150 1070 840 Output Total 1560 3602 1190 850 Balance -1410 -1452 -120 -10 - Objective General Appearance: positive: No acute distress, Lethargic, Other (Obese) Eyes Bilateral: positive: Normal inspection, EOMI ENT: positive: No signs of dehydration Neck: positive: Nml inspection, Other (Obese and cannot eval JVP) Respiratory: positive: No respiratory distress, Other (Diminished breath sounds, but no wheezing) Cardiovascular: positive: Regular rate & rhythm, Other (Distant heart sounds) Abdomen: positive: Non-tender, Other (Obese with a pannus) Skin: positive: Warm, Dry, Pallor Extremities: positive: Other (4+ edema to low thighs) Neurologic/Psychiatric: positive: Other (Somnolent, confused, mumbling her answers, and falls right back asleep (this, during oxygen saturation of 85% and not wearing her BIPAP while napping).) - Lab Results Fish Bones: 07/28/21 06:12 07/28/21 06:12 Other Labs: Lab Results x24hrs 07/28/21 07/28/21 07/28/21 Range/Units 06:12 06:12 06:12 WBC 7.2 (4.8-10.8) x10^3/uL RBC 2.35 L (4.20-5.40) 10^6/uL Hgb 7.3 L (12.0-16.0) g/dL Hct 24.5 L (37.0-47.0) % MCV 104.3 H (81.0-99.0) fL MCH 31.1 H (27.0-31.0) pg MCHC 29.8 L (32.0-36.0) g/dL RDW 16.2 H (12.0-15.0) % Plt Count 220 (130-450) 10^3/uL MPV 9.0 (7.9-10.8) fL Neut # (Auto) 5.1 (1.5-6.6) 10^3/uL Lymph # (Auto) 1.1 L (1.5-3.5) 10^3/uL [place] # (Auto) 0.6 (0.0-1.0) 10^3/uL Eos # (Auto) 0.4 (0.0-0.7) 10^3/uL Baso # (Auto) 0.0 (0.0-0.1) 10^3/uL Absolute Nucleated RBC 0.00 x10^3/uL Nucleated RBC % 0.0 /100WBC VBG pH 7.378 (7.31-7.41) Ionized Calcium 1.09 L (1.15-1.33) mmol/L Sodium 135 (135-145) mmol/L Potassium 4.1 (3.5-5.0) mmol/L Chloride 91 L (101-111) mmol/L Carbon Dioxide 34 H (21-32) mmol/L Anion Gap 10.0 (6-13) BUN 31 H (6-20) mg/dL Creatinine 1.5 H (0.4-1.0) mg/dL Estimated GFR (MDRD) 35 L (>89) Glucose 89 (70-100) mg/dL Calcium 8.6 (8.5-10.3) mg/dL Phosphorus 4.7 H (2.5-4.6) mg/dL Magnesium 2.1 (1.7-2.8) mg/dL 07/28/21 07/27/21 07/27/21 Range/Units 02:24 22:24 15:55 WBC (4.8-10.8) x10^3/uL RBC (4.20-5.40) 10^6/uL Hgb (12.0-16.0) g/dL Hct (37.0-47.0) % MCV (81.0-99.0) fL MCH (27.0-31.0) pg MCHC (32.0-36.0) g/dL RDW (12.0-15.0) % Plt Count (130-450) 10^3/uL MPV (7.9-10.8) fL Neut # (Auto) (1.5-6.6) 10^3/uL Lymph # (Auto) (1.5-3.5) 10^3/uL [place] # (Auto) (0.0-1.0) 10^3/uL Eos # (Auto) (0.0-0.7) 10^3/uL Baso # (Auto) (0.0-0.1) 10^3/uL Absolute Nucleated RBC x10^3/uL Nucleated RBC % /100WBC VBG pH 7.426 H 7.458 H 7.517 H (7.31-7.41) Ionized Calcium 1.04 L 0.99 L 0.96 L (1.15-1.33) mmol/L Sodium (135-145) mmol/L Potassium (3.5-5.0) mmol/L Chloride (101-111) mmol/L Carbon Dioxide (21-32) mmol/L Anion Gap (6-13) BUN (6-20) mg/dL Creatinine (0.4-1.0) mg/dL Estimated GFR (MDRD) (>89) Glucose (70-100) mg/dL Calcium (8.5-10.3) mg/dL Phosphorus (2.5-4.6) mg/dL Magnesium (1.7-2.8) mg/dL 07/27/21 Range/Units 15:55 WBC (4.8-10.8) x10^3/uL RBC (4.20-5.40) 10^6/uL Hgb 7.6 L (12.0-16.0) g/dL Hct 25.8 L (37.0-47.0) % MCV (81.0-99.0) fL MCH (27.0-31.0) pg MCHC (32.0-36.0) g/dL RDW (12.0-15.0) % Plt Count (130-450) 10^3/uL MPV (7.9-10.8) fL Neut # (Auto) (1.5-6.6) 10^3/uL Lymph # (Auto) (1.5-3.5) 10^3/uL [place] # (Auto) (0.0-1.0) 10^3/uL Eos # (Auto) (0.0-0.7) 10^3/uL Baso # (Auto) (0.0-0.1) 10^3/uL Absolute Nucleated RBC x10^3/uL Nucleated RBC % /100WBC VBG pH (7.31-7.41) Ionized Calcium (1.15-1.33) mmol/L Sodium (135-145) mmol/L Potassium (3.5-5.0) mmol/L Chloride (101-111) mmol/L Carbon Dioxide (21-32) mmol/L Anion Gap (6-13) BUN (6-20) mg/dL Creatinine (0.4-1.0) mg/dL Estimated GFR (MDRD) (>89) Glucose (70-100) mg/dL Calcium (8.5-10.3) mg/dL Phosphorus (2.5-4.6) mg/dL Magnesium (1.7-2.8) mg/dL Assessment/Plan - Problem List (1) Encephalopathy Impression: Confusion and obtundation recurred today, which I witnessed. She is hypersomnolent and is confused. This happened when she was not wearing her BIPAP for a mid-day nap. Etiology is therefore likely hypercapnia, which is likely caused by obesity-hypoventilation syndrome. Yesterday, her RN had the BIPAP restarted by RT when the lethargy was seen, and in 1-2 hours she was more alert and less confused. This is on top of the UTI possibly making her confused. We will now keep her on scheduled nightly BIPAP, and order BIPAP use for all naps, therefore she will remain in the ICU. A non-invasive home vent (like a Trilogy) machine is indicated and was ordered (see below in #3). She cannot be discharged until the Trilogy machine is available or she will get obtunded and would need to be re-admitted and hospitalized. Because of recurrent confusion, she and her roommate (and DPOA) Olivia need training in use of that new machine. Also, a referral will be sent to Home Health for a Skilled Nurse to assess her after discharge. (2) Obesity hypoventilation syndrome Impression: I suspect this is her diagnosis. She has now had 2 admissions with obtundation with documented hypercapnia, and her mental status improves with CO2 being ventilated off. A non-invasive home vent (like a Trilogy) machine is indicated and was ordered She cannot be discharged until the Trilogy machine is available or she will get obtunded and would need to be re-admitted and hospitalized. We ordered PT eval for today, as she increases activity. (3) Hypercapnic respiratory failure Impression: This has recurred several times. She became hypersomnolent and confused. Etiology of her obtundation is likely the hypercapnia. We will now keep her on scheduled nightly BIPAP and BIPAP during naps and remain in the ICU while she is here. Aa non-invasive ventilator (like a Trilogy machine) is indicated. An order was sent to her oxygen company, [employer]. We are awaiting authorization for it to be supplied. This patient has chronic respiratory failure with hypercapnia, COPD and lung CA. Noninvasive ventilator is required to reduce hospitalization and improve patient health. BiPAP was considered and deemed ineffective. I am ordering a Non-in vasive ventilator for her use. Qualifiers: Chronicity: acute on chronic Qualified Code(s): J96.22 - Acute and chronic respiratory failure with hypercapnia (4) Acute on chronic diastolic heart failure Impression: Diastolic heart failure (grade 3 diastolic dysfunction) was documented by bedside Echocardiogram w/ Doppler done several days ago. This is similar to her last Echo findings done 2 years ago. She is diuresing well, is about 4 L negative fluid balance. BNP has improved. Continue with beta-best and fluid restriction orders (since we noted that she can drank 3L/day) When her blood pressures became "soft", we changed the IV Lasix to p.o. Lasix. She will need CHF training regarding decreasing salt use and limiting her total fluid intake per day, as she admitted she sips liquids all day long at home. A Nutrition consult to be done today. (5) Anasarca Impression: This is improving, her pitting edema is now down to her mid legs, not abdominal wall. She is diuresing well, she is about 4 L negative in fluid balance. Keep leg elevated when OOB in chair. Because of "soft" BPs, we changed iv b.i.d. Lasix to oral Lasix bid. Nutrition consult pending today for CHF teaching of decreased salt and fluid intake. (6) Cor pulmonale Impression: As per Echo done several days ago. Because her blood pressures were becoming "soft", the right ventricle is now underfilling, secondary to aggressive diuresis. We changed the IV Lasix to p.o. Lasix. (7) COPD (chronic obstructive pulmonary disease) Impression: She is not in a COPD exacerbation, and is not on IV steroids at this time. Continue with nebulizer treatments, her new nightly Singulair, and the supplemental O2, and oxygen saturations of 88% and above are acceptable. She reported to RT that she has a home nebulizer machine but has no home meds (powder or mist), to use in the nebulizer. These would need to be re-prescribed in case we want to discharge her on these. (8) Anemia Impression: She has a marked anemia, today the hemoglobin is 7.3, down from admission Hgb of 9.1. This is despite being 4 L negative in fluid balance since admission. There are no signs of active bleeding anywhere. We ordered a stool guaiac test, but no BMs for 3 days. IV iron x1 was administered 2 days ago. Continue with oral iron supplementation, increased to b.i.d. We will follow H/H every 12 hours and transfuse if hemoglobin under 7. Qualifiers: Anemia type: iron deficiency Iron deficiency anemia type: unspecified iron deficiency Qualified Code(s): D50.9 - Iron deficiency anemia, unspecified (9) Diet-controlled type 2 diabetes mellitus Impression: This was learned when she could provide Hx, it was not on her problem list anywhere and she was too lethargic to give a Hx at admission. The patient reports she was on metformin before but it was stopped for unknown reasons. We ordered a carb controlled diet, fingerstick checks, sliding scale insulin coverage and hypoglycemia protocol. Her A1c result returned today and is 4.6 (10) UTI (urinary tract infection) Impression: Her U/A shows many WBCs and bacteria and positive nitrates. She was too obtunded to describe if she had any UTI symptoms, at the time of admission. Then she was queried about this in detail. She says she is always incontinent, denies dysuria but does not know about frequency. She does describe that she has a mesh hanging out of her urethra, which has been that way for a year or two. Her white blood count was not elevated, we are following CBC daily. Because of the foreign object (protruding mesh), she likely has seeding which may be ascending into her bladder. Because there was obtundation, we will give a complete course of treatment for UTI using oral Levaquin. Await the urine culture to tailor antibiotics. We have requested a ASSISTANT PROFESSOR OF MARINE BIOLOGY consult, but Dr Kennedy is listed as assigned, however she is no longer on staff. Will order OT eval regarding her ADLs (toileting technique). 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 She claims it is mesh put in for bladder suspension because she had stress incontinence. It has "fallen out" over the last 2 years. PCP is aware of this protrusion, and she says the PCP could not find it once when searching for it. Her RN here did a check, and did a vaginal exam and mesh is not palpable in the vagina. Will request a ASSISTANT PROFESSOR OF MARINE BIOLOGY exam and consult. Possibly she gets recurrent UTIs because of this exposed mesh. Will order OT eval regarding her ADLs (toileting technique). Qualifiers: Encounter type: subsequent encounter Qualified Code(s): T83.722D - Exposure of implanted urethral mesh into urethra, subsequent encounter (12) Chronic kidney disease Impression: Creatinine is stable at 1.4 to 1.6, despite using IV diuretics and she is 3 L negative in fluid status already. This suggest that she has cardiorenal syndrome. Continue with gentle diuresis Follow I's and O's and daily weights. Avoid nephrotoxins. [place] was removed Qualifiers: Chronic kidney disease stage: stage 3 (moderate) (13) Metastatic non-small cell lung cancer Impression: As per Hx. Status of her chemo is unknown but per Harini Cuadra, she is to about to start her med at home, prescribed for this. (14) Hypothyroidism Impression: Her TSH is in a normal range. We have resumed her home Synthroid dose. (15) Peripheral neuropathy Impression: We have resumed her usual gabapentin dose, now that she is more awake (16) Tobacco abuse Impression: She does smoke alot, up to 3 packs/day. The patient removes her nasal cannula oxygen when she smokes, which Olivia confirmed. We ordered nicotine patch to decrease nicotine urges while she is here. (17) Depression Impression: She admits to being depressed and says her Lexapro works "just a tiny bit" We increased her Lexapro from 10 to 20 mg daily.
[2021-07-28] MEDS: FUROSEMIDE 40 MG TABLET PO SCH (14:25)
[2021-07-28 15:30] LABS: CALCIUM, IONIZED 1.04 mmol/L (1.15-1.33); VBG PH 7.388 (7.31-7.41)
[2021-07-28 16:04] LABS: HCT - HEMATOCRIT 24.8 % (37.0-47.0); HGB - HEMOGLOBIN 7.3 g/dL (12.0-16.0)
[2021-07-28] MEDS: CALCIUM CARBONATE CHEW 500 MG TABLET PO SCH ×2 (16:55→20:35)
[2021-07-28] MEDS: polyethylene glycoL 3350 17 GM PACKET PO PRN (17:02)
[2021-07-28] MEDS: ATORVASTATIN 40 MG TABLET PO SCH (20:35)
[2021-07-28] MEDS: MONTELUKAST 10 MG TABLET PO SCH (20:35)
[2021-07-29] MEDS: SODIUM CHLORIDE FLUSH 0.9% 10 ML SYRINGE IVP PRN ×2 (00:23→05:52)
[2021-07-29] MEDS: SODIUM CHLORIDE FLUSH 0.9% 10 ML SYRINGE IVP SCH ×2 (00:23→09:04)
[2021-07-29 00:29] LABS: CALCIUM, IONIZED 1.01 mmol/L (1.15-1.33); VBG PH 7.405 (7.31-7.41)
[2021-07-29] MEDS: CALCIUM CARBONATE CHEW 500 MG TABLET PO SCH ×4 (00:35→12:31)
[2021-07-29 05:59] LABS: BASOPHILS % (AUTO) 0.3 %; EOSINOPHILS # (AUTO) 0.3 10^3/uL (0.0-0.7); HCT - HEMATOCRIT 24.5 % (37.0-47.0); HGB - HEMOGLOBIN 7.5 g/dL (12.0-16.0); LYMPHOCYTES % (AUTO) 16.8 %; MEAN CORPUSCULAR HEMOGLOBIN 31.8 pg (27.0-31.0); MEAN CORPUSCULAR HGB CONC 30.6 g/dL (32.0-36.0); MEAN CORPUSCULAR VOLUME 103.8 fL (81.0-99.0); MEAN PLATELET VOLUME 8.7 fL (7.9-10.8); MONOCYTES # (AUTO) 0.6 10^3/uL (0.0-1.0); NEUTROPHILS # (AUTO) 4.2 10^3/uL (1.5-6.6); NEUTROPHILS % (AUTO) 68.6 %; PLT - PLATELET COUNT 196 10^3/uL (130-450); RED BLOOD COUNT 2.36 10^6/uL (4.20-5.40); WHITE BLOOD COUNT 6.2 x10^3/uL (4.8-10.8)
[2021-07-29] MEDS: PANTOPRAZOLE 40 MG TABLET PO SCH (06:04)
[2021-07-29 06:11] LABS: CALCIUM 8.2 mg/dL (8.5-10.3); CREATININE 1.5 mg/dL (0.4-1.0); PHOSPHORUS 4.3 mg/dL (2.5-4.6); POTASSIUM 4.1 mmol/L (3.5-5.0)
[2021-07-29] MEDS: BUDESONIDE 0.5 MG/2 ML NEB INH SCH (06:48)
[2021-07-29] MEDS: IPRATROPIUM/ALBUTEROL 3 ML NEB INH SCH ×2 (06:48→11:07)
[2021-07-29 06:54] LABS: CALCIUM, IONIZED 1.05 mmol/L (1.15-1.33); VBG PH 7.374 (7.31-7.41)
[2021-07-29] MEDS: polyethylene glycoL 3350 17 GM PACKET PO PRN (08:23)
[2021-07-29] MEDS: ASPIRIN CHEW 81 MG TABLET PO SCH (08:24)
[2021-07-29] MEDS: LEVOTHYROXINE 75 MCG TABLET PO SCH (08:25)
[2021-07-29] MEDS: FUROSEMIDE 40 MG TABLET PO SCH (08:25)
[2021-07-29] MEDS: ESCITALOPRAM 10 MG TABLET PO SCH (08:26)
[2021-07-29] MEDS: FERROUS GLUCONATE 324 MG TABLET PO SCH (08:27)
[2021-07-29] MEDS: FOLIC ACID 1 MG TABLET PO SCH (08:28)
[2021-07-29] MEDS: METOPROLOL SUCCINATE 25 MG TABLET PO SCH (08:28)
[2021-07-29] MEDS: GABAPENTIN 300 MG CAPSULE PO SCH (08:29)
[2021-07-29] MEDS: NICOTINE 14 MG PATCH TOP SCH (08:31)
[2021-07-29] MEDS ORDERED: SODIUM CHLORIDE FLUSH 0.9% 10 ML SYRINGE IVP PRN (08:37)
[2021-07-29] MEDS: INSULIN ASPART 300 UNIT/3 ML PEN SUBQ SCH ×2 (08:38→12:30)
[2021-07-29] MEDS: TRIAMCINOLONE 0.1% OINT 15 GM TUBE TOP SCH (10:40)
[2021-07-29] MEDS: CHLORHEXIDINE GLUCONATE 15 ML UDC PO SCH (10:40)
--- NOTE | 2021-07-29 11:47 | Discharge Plan ---
Discharge Plan Problem Reviewed?: Yes Disposition: 06 Home Health Service Prescriptions: Ipratropium/Albuterol [Duoneb] 3 ml INH Q4HR PRN #100 neb PRN Reason: Wheezing Furosemide [Lasix] 40 mg PO 0800,1400 #60 tablet levoFLOXacin [Levaquin] 250 mg PO 1300 #3 tablet Calcium Carbonate [Tums (Calcium Carbonate 500mg)] 500 mg PO BID #60 tablet Diet: Regular Activity Restrictions: Activity as Tolerated Shower Restrictions: No (fall precaution) Instruction Topics: Levofloxacin tablets, Furosemide tablets, Heart Failure Warning Signs, Heart Failure Tracking Weight, Heart Failure Diet Changes, BiPap Using Health Concerns: You may followup the instruction for Trilogy usage, followup with stenotypist as out-pt. Duoneb solution is prescribed for your nebulizer. Your Lasix dosage is increased to twice daily. you may followup with your PCP and crab backer to manage of your heart failure. Levaquin is prescribed for you to finish the treatment course for your UTI. You may followup with your oncologist as your schedule. you may followup with your PCP to recheck hour HGB level in one week. You have hx of anemia. you may resume your home iron and folic acid. You may resume your home health PT/OT/RN. Plan of Treatment: as the above Care Goals: Stabilization and improvement of your medical condition Assessment: Discussed the care plan with you, answered your questions, you understood and agreed Additional Instructions or Follow Up instructions: You may follow-up with your PCP in 1 week. should your symptoms return or worse, you may present to the ER or call 911 for help No Smoking: If you smoke, Please STOP! Call for help. Follow-up with: Andres Mancera MD [Primary Care Provider] -
[2021-07-29 12:13] VITALS: BP 91/75
--- NOTE | 2021-07-29 12:23 | DISCHARGE SUMMARY ---
Discharge Summary Admit Date: 07/25/21 Discharge Date: 07/29/21 Discharging Provider: Raciel Kauffman Primary Care Provider: Andres Schmitt Discharge Disposition: Home Health Service Discharge Facility Name: home - DIAGNOSES Discharge Diagnoses with Status of Each Condition: (1) Encephalopathy total resolved. pt is alert and oriented plus 4 now. (2) Obesity hypoventilation syndrome pt was prescribed a trilogy ventilator by another provider. pt and her DPOA had extensive education for how to safely use Trilogy. pt has no respiratory distress at the d/c. Pt had 96% sat on 3.5 liter of O2 as she used to use at home. (3) Hypercapnic respiratory failure stable and resolved. pt has no respiratory distress at the d/c. Pt had 96% sat on 3.5 liter of O2 as she used to use at home. pt was prescribed by trilogy ventilator (4) Acute on chronic diastolic heart failure resolved, pt has no respiratory distress at the d/c. pt's home Lasix dosage is increased 40mg bid. (5) Anasarca significantly improved. pt had CHF teaching of decreased salt and fluid intake. pt's home Lasix dosage is increased to 40mg bid. (6) Cor pulmonale significantly improved. pt's home Lasix dosage is increased to 40mg bid. (7) COPD (chronic obstructive pulmonary disease) stable. pt has no respiratory distress at the d/c. Pt had 96% sat on 3.5 liter of O2. She is not in a COPD exacerbation, pt has a home nebulizer machine and is prescribed Duoneb solution to use in the nebulizer. (8) Anemia pt has hx of chronic anemia, and hx of CKD. pt may resume home iron supplement and recheck HGB level in one week with her PCP to monitor. 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 pt understood she may followup with cloth presser as out-pt (13) Metastatic non-small cell lung cancer pt may followup with her oncologist as out-pt, pt had palliative care consultation, and pt followup with palliative care as well. (14) Hypothyroidism Her TSH is in a normal range, esumed her home Synthroid dose. (15) Peripheral neuropathy stable, resumed her home gabapentin dose (16) Tobacco abuse pt is strongly advised to quit tobacco smoking. (17) Depression stable, resume home meds. - HPI History of Present Illness: refer from Dr. Liliya Verdin's HPI on 07/25/21 This is a 70-year-old white female with a past medical history significant for COPD on home O2, metastatic non-small cell lung cancer, peripheral neuropathy, CHF (with unknown EF), and CKD stage III who presented to ER today by EMS, after being found obtunded and hypoxic when her Palliative Care provider did a house call. History is obtained from the emergency department physician as the patient is unable to provide a history. The patient was just hospitalized here on 07/15/21 and discharged home 1 week ago, when at that presentation she was found down at home by her friend with empty pill bottles next to her. The POA, Olivia, was contacted who confirmed the patient was depressed over her cancer diagnosis but probably not suicidal. The patient required BIPAP and diuresis during that hospitalization for a Dx of CHF and was sent home then on oxygen: 2L at rest and 4L with activity. The patient has been followed by Palliative Care provider Harini Cuadra NP for years. Today Harini did a house call and found the patient obtunded with oxygen saturations in the mid 80s. When EMS arrived they increase her baseline nasal cannula O2 from 2 to 4 L/min which increased the sats to 92%. In the ED, the patient was arousable to her name but was lethargic, saturating at 93% on 4 L nasal cannula. Also noted was marked 3+ edema of the legs as well as edema of the face and eye edema. An ABG was done in the ED that showed pH 7.27, pCO2 77, pO2 71, and bicarb 34. Her BNP was 1237 (last admission BNP was 750). She was started on BIPAP in the ED, given iv Lasix, an Albuterol nebulizer treatment and the Hospitalist team was contacted for admission. Her Covid serology is neg. At the last hospitalization, that admitting Hospitalist spoke with the patient's POA and it was confirmed that the patient would agree to be on a mechanical ventilation as long as it was temporary. She would not want prolonged mechanical ventilation. Her POLST form states that she is a DNR with limited interventions but her POA felt that mechanical inhalation would be okay. - ALLERGIES Allergies/Adverse Reactions: Allergies Allergy/AdvReac Type Severity Reaction Status Date / Time No Known Drug Allergies Allergy Verified 07/25/21 12:02 - MEDICATIONS Home Medications: Ambulatory Orders Medication Instructions Recorded Confirmed Levothyroxine [Synthroid] 75 mcg PO DAILY 10/04/18 07/25/21 Zolpidem [Ambien] 10 mg ORAL QPM PRN 04/18/19 07/25/21 polyethylene glycoL 3350 [Miralax] 8.5 - 17 gm PO DAILY PRN 01/09/20 07/26/21 Gabapentin 600 mg PO BID 02/06/20 07/25/21 Omeprazole 40 mg PO DAILY 07/23/20 07/25/21 Folic Acid 1 mg PO DAILY 10/08/20 07/25/21 Metoprolol Succinate [Toprol Xl] 25 mg PO DAILY 11/13/20 07/25/21 Escitalopram [Lexapro] 10 mg PO DAILY #90 tablet 03/03/21 07/25/21 Ferrous Gluconate 324 mg PO DAILY 05/27/21 07/25/21 HYDROcod/ACETAM 5/325 [[place] 5/325] 1 - 2 tab PO TID PRN 05/27/21 07/25/21 Sotorasib [Lumakras] 960 mg PO DAILY MDD due to start 06/25/21 07/25/2107/25 Ondansetron Odt [Zofran Odt] 4 mg TL Q6H PRN #30 tab 06/30/21 07/25/21 Aspirin Chewable [[place] 81 mg PO DAILY #30 tablet 07/18/21 07/25/21 Aspirin] Simvastatin [Zocor] 80 mg PO HS #30 tablet 07/18/21 07/25/21 Tiotropium [place] [Spiriva] 1 puffs INH DAILY 07/25/21 07/25/21 Triamcinolone Acetonide 1 applic TOP BID 07/25/21 07/25/21 Calcium Carbonate [Tums (Calcium 500 mg PO BID #60 tablet 07/29/21 Carbonate 500mg)] Furosemide [Lasix] 40 mg PO 0800,1400 #60 tablet 07/29/21 Ipratropium/Albuterol [Duoneb] 3 ml INH Q4HR PRN #100 neb 07/29/21 levoFLOXacin [Levaquin] 250 mg PO 1300 #3 tablet 07/29/21 - PHYSICAL EXAM AT DISCHARGE General Appearance: positive: No acute distress, Alert. negative: Lethargic Eyes Bilateral: positive: Normal inspection, No lid inflammation ENT: positive: ENT inspection nml, No signs of dehydration. negative: Purulent nasal drainage Neck: positive: Nml inspection, Trachea midline. negative: Tracheal deviation Respiratory: positive: Chest non-tender, No respiratory distress. negative: Wheezes Cardiovascular: positive: Regular rate & rhythm. negative: Tachycardia, Bradycardia, Systolic murmur Peripheral Pulses: positive: 2+ Abdomen: positive: Non-tender, Nml bowel sounds, No distention. negative: Tenderness Back: positive: Nml inspection Skin: positive: Color nml, Warm, Dry. negative: Cyanosis Extremities: positive: Non-tender, Full ROM, Nml appearance Neurologic/Psychiatric: positive: Oriented x3, Motor nml, Sensation nml. negative: Weakness, Sensory loss, Facial droop, Slurred/abnml speech, Depressed mood/affect - LABS Result Diagrams: 07/29/21 05:45 07/29/21 05:45 - FOLLOW UP Follow Up: You may followup the instruction for Trilogy usage, followup with supervisor sawing and assembly as out-pt. Duoneb solution is prescribed for your nebulizer. Your Lasix dosage is increased to twice daily. you may followup with your PCP and fingerprint technician to manage of your heart failure. Levaquin is prescribed for you to finish the treatment course for your UTI. You may followup with your oncologist as your schedule. you may followup with your PCP to recheck hour HGB level in one week. You have hx of anemia. you may resume your home iron and folic acid. You may resume your home health PT/OT/RN. - TIME SPENT Time Spent in Discharge (Minutes): 30
[2021-07-29] MEDS: levoFLOXacin 250 MG TABLET PO SCH (12:29)
== END 2021-07-29 12:58 | disposition home health service (06) | DRG 189 ==
LOC: EDUNIT# → ED 11:49 → MS2 13:26 → UNDOADMIN 13:26 → ICU 13:26
PROVIDERS: ADMIT Internal Medicine; ATTEND Nurse Practitioner Gerontology
DX: J96.02 Acute respiratory failure with hypercapnia (principal); J96.01 Acute respiratory failure with hypoxia; J96.22 Acute and chronic respiratory failure with hypercapnia; I50.33 Acute on chronic diastolic (congestive) heart failure; I50.9 Heart failure, unspecified; N18.9 Chronic kidney disease, unspecified; G93.40 Encephalopathy, unspecified; E66.2 Morbid (severe) obesity with alveolar hypoventilation; C34.90 Malignant neoplasm of unspecified part of unspecified bronchus or lung; E11.40 Type 2 diabetes mellitus with diabetic neuropathy, unspecified; C79.9 Secondary malignant neoplasm of unspecified site; I13.0 Hypertensive heart and chronic kidney disease with heart failure and stage 1 through stage 4 chronic kidney disease, or unspecified chronic kidney disease; I49.3 Ventricular premature depolarization; N30.00 Acute cystitis without hematuria; J43.9 Emphysema, unspecified; J96.21 Acute and chronic respiratory failure with hypoxia; F41.9 Anxiety disorder, unspecified; I25.2 Old myocardial infarction; R07.9 Chest pain, unspecified; R32 Unspecified urinary incontinence; R53.1 Weakness; R60.0 Localized edema; R94.31 Abnormal electrocardiogram [ECG] [EKG]; Z20.822 Contact with and (suspected) exposure to COVID-19; I27.81 Cor pulmonale (chronic); D63.1 Anemia in chronic kidney disease; E03.9 Hypothyroidism, unspecified; E11.22 Type 2 diabetes mellitus with diabetic chronic kidney disease; Z95.5 Presence of coronary angioplasty implant and graft; E11.42 Type 2 diabetes mellitus with diabetic polyneuropathy; E78.00 Pure hypercholesterolemia, unspecified; F17.200 Nicotine dependence, unspecified, uncomplicated; F32.A Depression, unspecified; N18.30 Chronic kidney disease, stage 3 unspecified; H54.7 Unspecified visual loss; M19.90 Unspecified osteoarthritis, unspecified site; Z66 Do not resuscitate; Z79.82 Long term (current) use of aspirin; Z79.890 Hormone replacement therapy; Z79.899 Other long term (current) drug therapy; Z81.1 Family history of alcohol abuse and dependence; Z83.3 Family history of diabetes mellitus
CPT/HCPCS: 36415; 36600; 71045; 80048; 80053; 81001; 82330; 82607; 82746; 82803; 83036; 83540; 83690; 83735; 83880; 84100; 84443; 84466; 84484; 85014; 85018; 85025; 85610; 87086; 87150; 87635; 93005; 94640; 94660; 97161; 97165; 99233; 99281; 99285; A6250; A9270; J1750; J7626; 81003; 87181

== ENCOUNTER 2021-08-04 10:05 | Outpatient (CLI) | payer MEDICARE, OTHER ==
--- NOTE | 2021-08-04 17:58 | CONSULTATION NOTE ---
Palliative Care Follow Up - Referral Referring Provider: Yesenia Chase PA-C Time of Visit: [id number] Referral setting: Home Referral Reason: CHF/Hypercapnic respiratory failure/COPD/Anemia - Information Sources Records reviewed: Previous records reviewed History/Review of Systems obtained from: Patient Exam limitations: Clinical condition (patient with STM deficits) - History of Present Illness Update Brief HPI Update: This is a 70-year-old woman with metastatic lung cancer, to start on her sotorasib and oral cancer agent, but unfortunately with home visit 07/25/2021 found patient with hypercapnic respiratory failure. She also was hospitalized for encephalopathy, UTI, acute on chronic diastolic heart failure, cor pulmonale, UTI, and peripheral neuropathy.She was sent home on a trilogy ventilator, it did take some adjustment, but she has been using it every night with good results. She is much more clear, able to engage, reports she is sleeping much better. She has been somewhat overwhelmed by all the multiple changes that have happened, and is questioning whether she should continue with her cancer treatment. We did discuss in the context of what is going on, and her goals which is to make it to her birthday constitution party in October, though she is quite apprehensive, would recommend moving forward with her treatment. Patient has regained some lower extremity edema, does have difficulty being adherent to her diet and fluid restrictions, but is working very hard at it. She is on elevated furosemide 40 mg twice daily since discharge, have made arrangements for labs next week. Patient is also doing her duo nebs at least once a day sometimes twice a day, reports she is coughing up better and expectorating sputum, is having trouble with dry mouth on examination no signs or symptoms of candidiasis. She remains quite apprehensive, and does recognize she is declining but is hopeful for a least a few months reprieve. Past Medical History: Hypertension, high cholesterol, history of CT, COPD, emphysema, lung cancer peripheral neuropathy type 2 diabetes, hypothyroidism chronic incontinence, chronic vision loss, depression, anxiety, osteoarthritis, fatigue, exposure of implanted urothelial mesh Social History - Living Situation Living arrangement: At home Living Situation: With friend(s) Support System: Patient lives in a second story house apartment, with her friend Olivia who is also her caregiver. She has learned also had a help patient with her trilogy and remind her about her medications. She also does food prep and laundry. It has been quite a relief for Sindhu to have the pure wick, though the cost is high, she perceives that less laundry and depends are going to pay off in the end for her. Medications/Allergies - Medications Home Medications: Ambulatory Orders Medication Instructions Recorded Confirmed Levothyroxine [Synthroid] 75 mcg PO DAILY 10/04/18 08/04/21 Zolpidem [Ambien] 10 mg ORAL QPM PRN 04/18/19 08/04/21 polyethylene glycoL 3350 [Miralax] 8.5 - 17 gm PO DAILY PRN 01/09/20 08/04/21 Gabapentin 600 mg PO BID 02/06/20 08/04/21 Omeprazole 40 mg PO DAILY 07/23/20 08/04/21 Folic Acid 1 mg PO DAILY 10/08/20 08/04/21 Metoprolol Succinate [Toprol Xl] 25 mg PO DAILY 11/13/20 08/04/21 Ferrous Gluconate 324 mg PO DAILY 05/27/21 08/04/21 HYDROcod/ACETAM 5/325 [[place] 5/325] 1 - 2 tab PO TID PRN 05/27/21 08/04/21 Sotorasib [Lumakras] 960 mg PO DAILY MDD due to start 06/25/21 08/04/21/3 Ondansetron Odt [Zofran Odt] 4 mg TL Q6H PRN #30 tab 06/30/21 08/04/21 Aspirin Chewable [[place] 81 mg PO DAILY #30 tablet 07/18/21 08/04/21 Aspirin] Simvastatin [Zocor] 80 mg PO HS #30 tablet 07/18/21 08/04/21 Triamcinolone Acetonide 1 applic TOP BID 07/25/21 08/04/21 Calcium Carbonate [Tums (Calcium 500 mg PO BID #60 tablet 07/29/21 08/04/21 Carbonate 500mg)] Furosemide [Lasix] 40 mg PO 0800,1400 #60 tablet 07/29/21 08/04/21 Ipratropium/Albuterol [Duoneb] 3 ml INH Q4HR PRN #100 neb 07/29/21 08/04/21 Escitalopram [Lexapro] 20 mg PO DAILY 08/04/21 08/04/21 - Allergies Allergies/Adverse Reactions: Allergies Allergy/AdvReac Type Severity Reaction Status Date / Time No Known Drug Allergies Allergy Verified 07/25/21 12:02 Review of Systems - Constitutional Constitutional: reports: Fatigue (most problematic symptom), Weakness (worsening, needing walker for all ambulation new last few weeks; working with home PT; unfortunately with Pure Wick more chair bound), Night sweats, Weight gain (appears mostly fluid) - Eyes Eyes: reports: Blurred vision, Vision loss - Ears, Nose & Throat Ears, Nose & Throat: reports: Hearing loss, Dentures, Dry mouth. denies: Mouth lesions - Cardiovascular Cardiovascular: reports: Edema (much improved but starting to swell again from hospital baseline), Exertional dyspnea, Decr. exercise tolerance. denies: Palpitations, Chest pain - Respiratory Respiratory: reports: Cough (coughing spasms), Sputum production, Wheezing, Orthopnea, SOB at rest, SOB with exertion, Other (reports down to 1 pack a day) - Gastrointestinal Gastrointestinal: reports: Poor appetite, Early satiety. denies: Constipation (hx of difficulty reports went last nigh), Reflux/heartburn - Genitourinary Genitourinary: reports: Other (currently using pure wick with good response and output) - Musculoskeletal Musculoskeletal: reports: Back pain, Stiffness, Muscle weakness, Assistive devices (uses walker now even for short distances at home; ADLS have been more difficult) - Integumentary Integumentary: reports: Dryness - Neurological Neurological: reports: General weakness, Numbness (bilateral peripheral neuropathy), Memory problems (STM; can't remember our visit I sent her in) - Psychiatric Psychiatric: reports: Depression, Anxiety (worried about all the changes and whether wants to take on side effects of oral cancer medication) - Endocrine Endocrine: reports: Diabetes type 2 (a1c 4.6 in hospital), Hypothyroidism - Hematologic/Lymphatic Hematologic/Lymph: reports: Anemia (7.5), Recurrent infections (UTI) - All Other Systems All Other Systems: reports: Other (limited) Physical Exam - Vital Signs Temperature: 97.3 C Pulse Rate: 72 Respiratory Rate: 18 O2 Saturation: 93 (on 3 liters at rest) Blood Pressure: 108/62 - Physical Exam General Appearance: positive: No acute distress, Alert, Anxious (with new DX and instructions) Eyes Bilateral: positive: No scleral icterus Neck: positive: Trachea midline Cardiovascular: positive: Regular rate & rhythm Respiratory: positive: Diminished throughout. negative: No respiratory distress (more respiratory effort with conversation; movement), Wheezes Abdomen: positive: Soft, Other (rounded) Skin: positive: Pallor, Dryness Extremities: positive: Pedal edema (has SCDs on; appears improved from Wednesday) Neurologic/Psychiatric: positive: Oriented x3, Weakness, Depressed mood/affect, Flat affect Palliative Care - POLST Patient has POLST: Yes POLST Status: DNR Pain: Pain unchanged, Location (feet/peripheral neuropathy; chronic back pain) Tiredness/Fatigue: Moderate (4-6) Drowsiness/Sedation: Mild (1-3) Nausea: None Anorexia: Mild (1-3) Dyspnea: Severe (7-10) Depression: Moderate (4-6) Anxiety: Moderate (4-6) Feelings of wellbeing/Perceived Quality of Life: Poor, Acceptable Sleep: Sleep improved (with trilogy) Constipation: Yes, Opoid induced, Managed Performance Status: Patient continues with declining functional status, some of this is limited by her integration of the pure wick and need to stay in 1 position. She is ambulatory but only short distances, is using a walker at all times this is new. She has been sleeping in her bed.She is to help with household tasks and cooking, is unable to do this at this time. - Palliative Care Discussion: Long discussion in the context patient is ambivalent about starting her oral cancer treatment. She is worried about side effects in the context of her already long list of new diagnoses with acute on chronic heart failure, needing the trilogy for her hypercapnia, her management of the pure wick for incontinen ce. Her goal is to make it to October, her sisters have been planning a birthday constitution party. She does understand that she is on limited time, particularly now with further diagnoses. She vacillates about being compliant with fluid restrictions and medication adherence but has tried last few days. Patient does have a POLST with DN AR/DNI and selective treatments, she still feels like she has some fight left in her. Impression and Recommendations - Palliative Care Impression: This is a 70-year-old woman with acute on chronic respiratory failure acute on chronic heart failure, known progressive metastatic lung cancer and high symptom burden. Patient is quite compromised, has presented with functional decline, and increasing complexity of her care. She gets easily overwhelmed with severe anxiety, she is anxious about moving forward with her cancer treatment. Palliative care continue provide support for pain and symptom management, coordination of care, anticipatory guidance and psychosocial support. Recommendations/Counseling Done: 1. Hypercapnic respiratory failure. This does appear much better, she is compliant with her trilogy, sleeping better, breathing better, and has had a few episodes of sleepiness. She reports she is kind of tried to distract her self, we discussed the proper intervention would be to go use her trilogy for half hour to 60 minutes. Verbalizes understanding. 2. Acute on chronic heart failure. This is a new diagnosis for patient, she has been instructed on low salt and fluid restriction, she is trying to be compliant but discussed weighing this in the context text of her quality of life. She is on higher doses of furosemide 40 mg twice daily, has had CKD exacerbations in the past, will check her labs next week. She is at high risk for exacerbation, will continue to monitor. She does have home health RN in there now. 3. COPD. Patient has an listed using the nebulizer 1-2 times a day with improvement of management of secretions and shortness of breath. Her lungs sound better though do still have scattered wheezes and coughing spasms noted to couple times during visit. She continues to smoke though has cut down dramatically, she reports 1 pack a day. We did discuss possibly considering vaping as it is definitely a addiction for her. She will consider.She is not interested in nicotine patches. 4. Medication adherence. We did review her medications, she was able to show me her meds and what she is taking. She does have reminders from caregiver DD. Home health has been monitoring as well. 5. Depression. Patient does have exacerbation of depression, with feelings of overwhelm and increased anxiety. We did discuss increasing her Lexapro to 20 mg daily, this has been order 6. Metastatic lung cancer. Long discussion regarding her goals, weighing benefits and burdens of initiating. Did discuss doing a time trial of initi ating medication and see how it makes her feel and then make a decision. The medication is in the home, she agreed to start forward with this either today or tomorrow. Answered questions as able, patient remains really quite but in build. 7. Advance care planning. Patient does have a POLST with DN AR/DNI and selective treatments. Patient does recognize her impending decline, it is helpful to make it to October for her birthday constitution party, does understand the seriousness of her illness and implications. Long discussion regarding patient's goals of care, patient will initiate despite her ambivalence her cancer treatment, weighing benefits and burdens moving forward. We will continue to monitor for patient. 8. Diabetes type 2. Discussed with patient her A1c was 4.6, given her complexity of her situation. Would not recommend blood sugar monitoring. This was met with great relief. 65 minutes with greater than 50% of this done in counseling regarding pain and symptom management, medication adherence, coordination of care with oncology clinic requested they follow-up with her with next appointment, labs were ordered from [facility] next week, will follow-up accordingly.
== END 2021-08-04 10:06 | disposition home or self-care (01) ==
LOC: PC 10:05
PROVIDERS: ATTEND Nurse Practitioner Adult Health
DX: Z51.5 Encounter for palliative care (principal); J96.22 Acute and chronic respiratory failure with hypercapnia; I50.9 Heart failure, unspecified; R53.83 Other fatigue; R53.1 Weakness; K59.03 Drug induced constipation; T40.2X5A Adverse effect of other opioids, initial encounter; F17.210 Nicotine dependence, cigarettes, uncomplicated; J44.9 Chronic obstructive pulmonary disease, unspecified; C34.90 Malignant neoplasm of unspecified part of unspecified bronchus or lung; R60.0 Localized edema; E11.9 Type 2 diabetes mellitus without complications; F32.A Depression, unspecified; Z99.81 Dependence on supplemental oxygen; Z79.891 Long term (current) use of opiate analgesic; Z79.899 Other long term (current) drug therapy; Z66 Do not resuscitate
CPT/HCPCS: 99350

== ENCOUNTER 2021-09-02 13:26 | Outpatient (CLI) | payer MEDICARE, OTHER ==
--- NOTE | 2021-09-02 15:58 | CONSULTATION NOTE ---
Palliative Care Follow Up - Referral Referring Provider: Yesenia Chase PA-C Time of Visit: 1330 45 min Referral setting: [facility] [place] Referral Reason: CIPN/CHF/COPD/Met Lung CA - Information Sources Records reviewed: Previous records reviewed History/Review of Systems obtained from: Patient Exam limitations: Clinical condition (mild STM issues) - History of Present Illness Update Brief HPI Update: This is a 70-year-old woman with metastatic lung cancer, started on her sotorasib and oral agent, has done fairly well with only some diarrhea. Diarrhea has been controlled with 1 Imodium daily. From our difficult underlying issues have to do more so with her ongoing hypercapnic respiratory failure, now has a noninvasive ventilator she is using at night, has not had any further episodes of drowsiness or difficulty. She is now oxygen dependent at all times, on 2 L continuous. She has also CHF, she presents today with increased lower extremity edema, despite being on her furosemide 40 mg twice daily, she is compliant with this as she now has her pure wick, that helps with her urinary incontinence. She has had significant weight gain, both from intake as her anorexia has resolved, as well as fluid retention. She has been at lowest with anorexia at 177, today she weighs in at 208. She reports she is sleeping better, but is having more respiratory effort, cough continues with clear sputum but increased cough from baseline. Denies any fever or chills, though does have intermittent night sweats. Patient's goal is to make it to her birthday in October, they have planned a constitution party, patient does understand the seriousness of her illness, more likely problematic as far as her impending decline would be for CHF and worsening COPD. Patient is to meet with oncology, requested she get a chest x-ray to evaluate her increase breathlessness, in agreement will get after appointment. Past Medical History: Hypertension, high cholesterol, history of LA, COPD, emphysema, lung cancer, peripheral neuropathy, type 2 diabetes, hypothyroidism, chronic incontinence, chronic vision loss, depression, anxiety, osteoarthritis, fatigue, exposure of implanted urothelial mesh Social History - Living Situation Living arrangement: At home Living Situation: With friend(s) Support System: Patient lives in a two-story house, on an upper apartment level with her friend Olivia who is also her caregiver. Olivia has learned to help patient with trilogy, assist her with remembering medications, as well as food prep and laundry. It has been quite a relief for Sindhu to have the pure wick, and feels they are doing better as far as caregiver distress and increasing care needs. 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 Medications/Allergies - Medications Home Medications: Ambulatory Orders Medication Instructions Recorded Confirmed Levothyroxine [Synthroid] 75 mcg PO DAILY 10/04/18 09/02/21 Zolpidem [Ambien] 10 mg ORAL QPM PRN 04/18/19 09/02/21 Gabapentin 600 mg PO BID 02/06/20 09/02/21 Omeprazole 40 mg PO DAILY 07/23/20 09/02/21 Folic Acid 1 mg PO DAILY 10/08/20 09/02/21 Metoprolol Succinate [Toprol Xl] 25 mg PO DAILY 11/13/20 09/02/21 Ferrous Gluconate 324 mg PO DAILY 05/27/21 09/02/21 HYDROcod/ACETAM 5/325 [[place] 5/325] 1 - 2 tab PO TID PRN 05/27/21 09/02/21 Sotorasib [Lumakras] 960 mg PO DAILY MDD due to start 06/25/21 09/02/21 5/3 Ondansetron Odt [Zofran Odt] 4 mg TL Q6H PRN #30 tab 06/30/21 09/02/21 Aspirin Chewable [[place] 81 mg PO DAILY #30 tablet 07/18/21 09/02/21 Aspirin] Simvastatin [Zocor] 80 mg PO HS #30 tablet 07/18/21 09/02/21 Triamcinolone Acetonide 1 applic TOP BID 07/25/21 09/02/21 Calcium Carbonate [Tums (Calcium 500 mg PO BID #60 tablet 07/29/21 09/02/21 Carbonate 500mg)] Furosemide [Lasix] 40 mg PO 0800,1400 #60 tablet 07/29/21 09/02/21 Ipratropium/Albuterol [Duoneb] 3 ml INH Q4HR PRN #100 neb 07/29/21 09/02/21 Escitalopram [Lexapro] 20 mg PO DAILY 08/04/21 09/02/21 - Allergies Allergies/Adverse Reactions: Allergies Allergy/AdvReac Type Severity Reaction Status Date / Time No Known Drug Allergies Allergy Verified 07/25/21 12:02 Review of Systems - Constitutional Constitutional: reports: Fatigue (most problematic symptom), Weakness (worsening, needing walker for all ambulation), Night sweats, Weight gain (208) - Eyes Eyes: reports: Blurred vision, Vision loss - Ears, Nose & Throat Ears, Nose & Throat: reports: Hearing loss, Dentures, Dry mouth. denies: Mouth lesions - Cardiovascular Cardiovascular: reports: Edema (LE taut; pitting and uncomfortable), Exertional dyspnea, Decr. exercise tolerance. denies: Palpitations, Chest pain - Respiratory Respiratory: reports: Cough (coughing spasms), Sputum production (reports ganga ar), Wheezing, Orthopnea, SOB at rest (worsening), SOB with exertion, Other (reports down to 1 pack a day) - Gastrointestinal Gastrointestinal: reports: Diarrhea (controlled with one immodium scheduled daily), Good appetite. denies: Reflux/heartburn - Genitourinary Genitourinary: reports: Incontinence, Other (currently using pure wick with good response and output) - Musculoskeletal Musculoskeletal: reports: Back pain, Stiffness, Muscle weakness, Assistive devices (uses walker now even for short distances at home; ADLS have been more difficult) - Integumentary Integumentary: reports: Dryness - Neurological Neurological: reports: General weakness, Numbness (bilateral peripheral neuropathy feels pain better with gabapentin), Memory problems (STM; feels thinking better though with oxygen and trilogy), Abnormal gait - Psychiatric Psychiatric: reports: Depression, Anxiety - Endocrine Endocrine: reports: Diabetes type 2 (a1c 4.6 in hospital), Hypothyroidism - Hematologic/Lymphatic Hematologic/Lymph: reports: Anemia (9.2 improved) - All Other Systems All Other Systems: reports: Other (limited with recall STM deficits) Physical Exam - Vital Signs Temperature: 36.6 C Pulse Rate: 78 Respiratory Rate: 18 O2 Saturation: 92 (2 liters at rest) - Physical Exam General Appearance: positive: No acute distress, Alert, Anxious (if will run out of battery) Eyes Bilateral: positive: No scleral icterus, Other (periorbital edema) Neck: positive: Trachea midline Cardiovascular: positive: Regular rate & rhythm Respiratory: positive: Diminished throughout. negative: No respiratory distress (more respiratory effort with conversation; movement), Wheezes Abdomen: positive: Soft, Other (rounded) Skin: positive: Pallor, Dryness Extremities: positive: Pedal edema (worsening) Neurologic/Psychiatric: positive: Oriented x3, Mood/affect nml, Weakness, Flat affect Palliative Care - POLST Patient has POLST: Yes POLST Status: DNR, Selective Treatment Pain: Pain improved, Location (LE and chronic back pain), Severity (5/10) Tiredness/Fatigue: Moderate (4-6) Drowsiness/Sedation: Moderate (4-6) Nausea: None Anorexia: None Dyspnea: Severe (7-10), Comment (worsening over last 2 weeks) Depression: Mild (1-3) Anxiety: Moderate (4-6) Feelings of wellbeing/Perceived Quality of Life: Fair, Acceptable, Improved Sleep: Variable sleep pattern (sleeps 4-5 hours; improved) Constipation: No Performance Status: Patient has had declining functional status, as well as working with physical therapy and OT, has been discharged. Patient does have her exercise goes, she does state chair exercises is still ambulatory with walker in the home. Does need some assistance with bathing. She is more dependent for IADLs and meal prep.She is using walker for most long distances. - Palliative Care Discussion: Patient does understand the seriousness of her illnesses, she has multiple comorbidities that are adding to her decline in functional status and increased symptom burden. She is pleased she is tolerating her treatments well, her goal is to make it to her birthday, where her sisters are planning a constitution party for her. Patient does have a POLST with DN AR/DNI and selective treatments. She does feel like she is able to continue choosing benefit of treatment and interventions, including possible hospitalization over burden at this time. She feels her quality of life is improving though with exacerbation of her lower extremity edema having more symptoms and this increases her anxiety. Results - Lab Results Lab results reviewed: Yes Impression and Recommendations - Palliative Care Impression: This is a 70-year-old woman with known acute on chronic respiratory failure, acute on chronic heart failure, and known progressive metastatic lung cancer with high symptom burden. Patient's been tolerating her new oral cancer treatment with minimal side effects, though presents today with increasing dyspnea and lower extremity edema. Patient easily gets overwhelmed with severe anxiety. Palliative care continue provide support for pain and symptom management, coordination of care, psychosocial support and anticipatory guidance. Recommendations/Counseling Done: 1. Acute on chronic heart failure. This is a new diagnosis for the patient, she feels like she has been fairly compliant and staying with her fluid restriction though this remains quite difficult for her. She is having more lower extremity edema, and increased shortness of breath. She is on higher doses of furosemide with 40 mg twice daily, and is pushing her kidney status with a creatinine to 1.4 though this is been fairly persistent over the last couple months. She is at high risk for exacerbation hospitalization. Requested patient get chest x-ray today, most likely needs to have her diuretics adjusted.Patient does not have cardiology, patient is very averse to going to any more "doctor appointments". 2. Hyper Respiratory failure. This appears again to continue to improve, she is sleeping 4 to 5 hours a night, is compliant with her trilogy. She reports she is sleeping better, has not had any episodes of sleepiness. Have encouraged her to use also short periods of time in the day, but usually sits in her recliner secondary to the pure wick. 3. COPD. Patient has been using the nebulizer 1-2 times a day, she does have scattered wheezes and diminished breath sounds throughout. She has cut down on her smoking, but still continues to smoke reports is being safe and taking off oxygen. Have offered vaping or nicotine patches, patient has not made any changes. 4. Medication adherence. Patient feels like she has been following her regimen without any difficulty. She does have reminders from her caregiver Olivia. Home health is since discharged. Did switch over her loss of her medications to [facility]. 5. Depression. Patient has had exacerbation depression, have increased her Lexapro to 20 mg daily, will continue to monitor. 6. Metastatic lung cancer. Patient did follow through and use medication, has had minimal side effects other than diarrhea which controlled with Imodium once daily. At this point in time she is planning to continue treatment. She is due to see oncology after our visit today. 7. Peripheral neuropathy. Patient reports is well controlled currently on her gabapentin 600 mg twice daily, is quite pleased though with increased swelling does cause increased discomfort. She is needing to use minimal narcotics, she does get pruritus with oxycodone and with hydrocodone, tries to avoid particularly around constipation issues. Though at this point she is dealing with diarrhea. 8. Advanced care planning. Patient does have POLST with DN AR/DNI and selective treatments. Patient recognizes her impending decline but is hopeful to make it to her October birthday constitution party, is feeling more hopeful regarding this as far as continue to improve on some levels how she is feeling though declining on others. 45 minutes review of labs, oncology notes, [id number] with patient counseling related to pain and symptom management, coordination of care. Addendum 09/03/2021. Patient reports did not get her chest x-ray secondary to doctor running behind and had low oxygen. After much discussion, she did agree to get it done tomorrow, she does have the order in hand. In the meantime will increase her furosemide to 80 mg a.m. and 40 mg p.m., will evaluate for response. She is at high risk for further complications given her CKD/CHF.
== END 2021-09-02 13:27 | disposition home or self-care (01) ==
LOC: PC 13:26
PROVIDERS: ATTEND Nurse Practitioner Adult Health
DX: Z51.5 Encounter for palliative care (principal); K52.1 Toxic gastroenteritis and colitis; G62.0 Drug-induced polyneuropathy; T45.1X5A Adverse effect of antineoplastic and immunosuppressive drugs, initial encounter; Z99.81 Dependence on supplemental oxygen; R60.0 Localized edema; J96.22 Acute and chronic respiratory failure with hypercapnia; J44.9 Chronic obstructive pulmonary disease, unspecified; Z79.899 Other long term (current) drug therapy; F32.9 Major depressive disorder, single episode, unspecified; Z66 Do not resuscitate; E11.22 Type 2 diabetes mellitus with diabetic chronic kidney disease; I13.0 Hypertensive heart and chronic kidney disease with heart failure and stage 1 through stage 4 chronic kidney disease, or unspecified chronic kidney disease; N18.9 Chronic kidney disease, unspecified; I50.89 Other heart failure; F17.200 Nicotine dependence, unspecified, uncomplicated; C34.90 Malignant neoplasm of unspecified part of unspecified bronchus or lung; R63.5 Abnormal weight gain
CPT/HCPCS: 99215

== ENCOUNTER 2021-09-23 18:52 | Outpatient (CLI) | payer MEDICARE, OTHER | END 2021-09-23 18:53 | disposition critical access hospital (66) | LOC: EMS 18:52 | DX: R06.00 Dyspnea, unspecified (principal); R06.2 Wheezing; R14.0 Abdominal distension (gaseous); R60.0 Localized edema | CPT/HCPCS: A0425; A0427 ==

== ENCOUNTER 2021-09-23 19:25 | Emergency (ER) | payer MEDICARE, OTHER ==
--- NOTE | 2021-09-23 20:41 | ED Physician Documentation ---
PD HPI DYSPNEA - Stated complaint Stated Complaint: ABD PX/SOA - Chief complaint Chief Complaint: Resp - History obtained from History obtained from: Patient - History of Present Illness Timing - onset: How many days ago (3) Timing - onset during: Rest Timing - duration: Weeks (1) Timing - details: Gradual onset, Still present Improved by: O2, Inhaler/neb, Rest, Sitting up Worsened by: Exertion, Laying flat, Coughing Associated symptoms: Cough (similar to always), Bilateral edema Similar symptoms before: Diagnosis (CHF,COPD, lung cancer.) Recently seen: Other - Additional information Additional information: 70-year-old Bibi Albarado has been undergoing treatment for metastatic KRAS+ adenocarcinoma of the lung for the past 6 years. She has a history of COPD, CHF, iron deficient anemia and lung cancer. She continues to smoke. Over the past week she has developed fluid retention and increased exertional dyspnea. She is on oxygen at night. She is brought to the hospital by ambulance today and was given lasix 40mg IV en-route. At the time of my evaluation her O2 sat is in the mid 90's on oxygen by [place]. Her O2 sat was in the 80's with oxygen when medics picked her up. She denies other illness today. Review of Systems Constitutional: reports: Fatigue. denies: Fever, Weight Loss, Sweats Eyes: denies: Decreased vision Ears: denies: Ear pain Nose: denies: Congestion Throat: denies: Sore throat Cardiac: reports: Pedal edema. denies: Chest pain / pressure, Palpitations Respiratory: reports: Dyspnea, Cough, Wheezing GI: denies: Nausea, Vomiting, Constipation, Diarrhea : reports: Other (decreased urine output past 2 days.). denies: Dysuria, Frequency Skin: denies: Rash Musculoskeletal: denies: Neck pain, Back pain Neurologic: denies: Generalized weakness, Focal weakness, Numbness PD PAST MEDICAL HISTORY - Past Medical History Cardiovascular: Congestive heart failure, Hypertension, High cholesterol, [place] Respiratory: COPD, Emphysema, Other (Lung cancer, is on home O2 ) Neuro: Peripheral neuropathy Endocrine/Autoimmune: Type 2 diabetes, HyPOthyroidism GI: Other : Incontinence HEENT: Chronic vision loss, Other Psych: Depression, Anxiety, Bipolar disorder Musculoskeletal: Osteoarthritis, Fatigue Derm: None - Past Surgical History Past Surgical History: Yes General: EGD Cardiovascular: Coronary stent, Cardiac catheterization HEENT: Tonsil/Adenoidectomy - Present Medications Home Medications: Ambulatory Orders Medication Instructions Recorded Confirmed Levothyroxine [Synthroid] 75 mcg PO DAILY 10/04/18 09/02/21 Zolpidem [Ambien] 10 mg ORAL QPM PRN 04/18/19 09/02/21 Gabapentin 600 mg PO BID 02/06/20 09/02/21 Omeprazole 40 mg PO DAILY 07/23/20 09/02/21 Folic Acid 1 mg PO DAILY 10/08/20 09/02/21 Metoprolol Succinate [Toprol Xl] 25 mg PO DAILY 11/13/20 09/02/21 Ferrous Gluconate 324 mg PO DAILY 05/27/21 09/02/21 HYDROcod/ACETAM 5/325 [[place] 5/325] 1 - 2 tab PO TID PRN 05/27/21 09/02/21 Sotorasib [Lumakras] 960 mg PO DAILY MDD due to start 06/25/21 09/02/21 5/3 Ondansetron Odt [Zofran Odt] 4 mg TL Q6H PRN #30 tab 06/30/21 09/02/21 Aspirin Chewable [[place] 81 mg PO DAILY #30 tablet 07/18/21 09/02/21 Aspirin] Simvastatin [Zocor] 80 mg PO HS #30 tablet 07/18/21 09/02/21 Triamcinolone Acetonide 1 applic TOP BID 07/25/21 09/02/21 Calcium Carbonate [Tums (Calcium 500 mg PO BID #60 tablet 07/29/21 09/02/21 Carbonate 500mg)] Furosemide [Lasix] 40 mg PO 0800,1400 #60 tablet 07/29/21 09/02/21 Ipratropium/Albuterol [Duoneb] 3 ml INH Q4HR PRN #100 neb 07/29/21 09/02/21 Escitalopram [Lexapro] 20 mg PO DAILY 08/04/21 09/02/21 - Allergies Allergies/Adverse Reactions: Allergies Allergy/AdvReac Type Severity Reaction Status Date / Time No Known Drug Allergies Allergy Verified 09/23/21 19:37 - Social History Does the pt smoke?: Yes Smoking Status: Current every day smoker Does the pt drink ETOH?: No Does the pt have substance abuse?: No - Immunizations Immunizations: TDAP >10years/unknown - POLST Patient has POLST: Yes POLST Status: DNR PD ED PE NORMAL - Vitals Vital signs reviewed: Yes (tachypneic with ) - General General: Other (dubose facies moves slowly answers appropriately) - HEENT HEENT: Atraumatic, PERRL, EOMI - Neck Neck: Supple, no meningeal sign, No bony TTP - Cardiac Cardiac: RRR, No murmur - Respiratory Respiratory: No respiratory distress, Other (inspritory crackles bilat wheezes bilat ) - Abdomen Abdomen: Soft, Non tender, Other (obese) - Back Back: No CVA TTP, No spinal TTP - Derm Derm: Normal color, Warm and dry, No rash - Extremities Extremities: No deformity, Other (pitting edma bilaterally ) - Neuro Neuro: Alert and oriented X 3 (falls asleep easily ), track sweeper 2-12 intact, No motor deficit, No sensory deficit, Normal speech Eye Opening: Spontaneous Motor: Obeys Commands Verbal: Oriented GCS Score: 15 - Psych Psych: Normal mood, Normal affect Results - Vitals Vitals: Vital Signs - 24 hr 09/23/21 09/23/21 09/23/21 19:32 20:29 20:30 Temperature 36.9 C Heart Rate 82 100 94 Heart Rate [ Monitoring electrodes] Respiratory 26 H 23 25 H Rate Blood Pressure 105/64 108/55 L 129/76 Blood Pressure [Left Brachial artery] O2 Saturation 82 L 91 L 92 09/23/21 09/23/21 09/23/21 21:00 21:30 22:00 Temperature Heart Rate 94 89 91 Heart Rate [ Monitoring electrodes] Respiratory 32 H 20 31 H Rate Blood Pressure 91/49 L 124/63 130/66 Blood Pressure [Left Brachial artery] O2 Saturation 94 89 L 91 L 09/23/21 09/23/21 09/23/21 22:30 22:52 23:00 Temperature 36.6 C Heart Rate 91 87 85 Heart Rate [ Monitoring electrodes] Respiratory 31 H 20 19 Rate Blood Pressure 130/66 118/58 L 92/45 L Blood Pressure [Left Brachial artery] O2 Saturation 90 L 89 L 09/23/21 09/23/21 09/24/21 23:20 23:30 00:00 Temperature Heart Rate 87 96 Heart Rate [ 85 Monitoring electrodes] Respiratory 22 21 17 Rate Blood Pressure 121/67 127/71 Blood Pressure 115/62 [Left Brachial artery] O2 Saturation 96 99 77 L 09/24/21 09/24/21 09/24/21 00:30 01:00 01:30 Temperature Heart Rate 97 90 86 Heart Rate [ Monitoring electrodes] Respiratory 17 25 H 22 Rate Blood Pressure 122/68 125/97 H 127/65 Blood Pressure [Left Brachial artery] O2 Saturation 87 L 91 L 89 L 09/24/21 09/24/21 09/24/21 01:58 02:00 02:02 Temperature 36.9 C 36.9 C Heart Rate 84 88 Heart Rate [ 87 Monitoring electrodes] Respiratory 21 18 21 Rate Blood Pressure 127/68 107/55 L Blood Pressure 127/73 [Left Brachial artery] O2 Saturation 91 L 97 09/24/21 09/24/21 09/24/21 02:30 03:00 03:30 Temperature Heart Rate 86 83 79 Heart Rate [ Monitoring electrodes] Respiratory 19 19 18 Rate Blood Pressure 124/85 H 126/83 H 127/76 Blood Pressure [Left Brachial artery] O2 Saturation 89 L 94 98 09/24/21 09/24/21 09/24/21 03:32 04:00 04:30 Temperature 36.6 C Heart Rate 79 75 82 Heart Rate [ Monitoring electrodes] Respiratory 18 17 20 Rate Blood Pressure 125/57 L 104/74 127/87 H Blood Pressure [Left Brachial artery] O2 Saturation 95 93 09/24/21 09/24/21 09/24/21 05:00 05:30 05:49 Temperature 36.6 C Heart Rate 86 82 78 Heart Rate [ Monitoring electrodes] Respiratory 22 23 22 Rate Blood Pressure 86/75 L 125/86 H 127/87 H Blood Pressure [Left Brachial artery] O2 Saturation 90 L 83 L 09/24/21 09/24/21 09/24/21 06:00 06:30 07:00 Temperature Heart Rate 76 84 88 Heart Rate [ Monitoring electrodes] Respiratory 19 23 21 Rate Blood Pressure 115/64 139/72 H 125/57 L Blood Pressure [Left Brachial artery] O2 Saturation 93 94 91 L 09/24/21 07:11 Temperature Heart Rate 86 Heart Rate [ Monitoring electrodes] Respiratory 20 Rate Blood Pressure Blood Pressure [Left Brachial artery] O2 Saturation Oxygen O2 Source Nasal cannula Oxygen Flow Rate 5 - EKG (time done) 2032 Rate: Rate (enter#) (94) Rhythm: NSR [place]: Normal Ischemia: Normal ST segments, Q waves Compare to prior EKG: Changed from prior EKG (SPT 07-25-21 the rate has increased) Computer interpretation: Agree with computer - Labs Labs: Laboratory Tests 09/23/21 09/23/21 09/23/21 20:45 20:45 20:45 WBC 7.9 RBC 2.10 L Hgb 6.0 L* Hct 22.7 L MCV 108.1 H MCH 28.6 MCHC 26.4 L RDW 17.2 H Plt Count 192 MPV 9.7 Neut # (Auto) 6.0 Lymph # (Auto) 0.9 L [place] # (Auto) 0.7 Eos # (Auto) 0.2 Baso # (Auto) 0.1 Absolute Nucleated RBC 0.00 Nucleated RBC % 0.0 Sodium 135 Potassium 4.0 Chloride 93 L Carbon Dioxide 34 H Anion Gap 8.0 BUN 33 H Creatinine 1.5 H Estimated GFR (MDRD) 35 L Glucose 127 H Calcium 7.7 L Total Bilirubin 0.5 AST < 10 L ALT 12 Alkaline Phosphatase 100 Troponin I High Sens 16.0 H* B-Natriuretic Peptide Total Protein 6.5 L Albumin 3.1 L Globulin 3.4 Albumin/Globulin Ratio 0.9 L Lipase 39 Blood Type Antibody Screen Crossmatch IS Only 09/23/21 09/23/21 09/24/21 20:45 21:30 06:36 WBC RBC Hgb 7.7 L Hct 27.9 L MCV MCH MCHC RDW Plt Count MPV Neut # (Auto) Lymph # (Auto) [place] # (Auto) Eos # (Auto) Baso # (Auto) Absolute Nucleated RBC Nucleated RBC % Sodium Potassium Chloride Carbon Dioxide Anion Gap BUN Creatinine Estimated GFR (MDRD) Glucose Calcium Total Bilirubin AST ALT Alkaline Phosphatase Troponin I High Sens B-Natriuretic Peptide 1644 H Total Protein Albumin Globulin Albumin/Globulin Ratio Lipase Blood Type A POSITIVE Antibody Screen NEGATIVE Crossmatch IS Only See Detail - Rads (name of study) chest Radiology: Prelim report reviewed (Impression: 1. Opacification of the superior hemithorax appears similar to the prior study and is consistent with chronic consolidation or atelectasis. Cardiomegaly and pulmonary edema suggestive of congestive heart failure. Previously visualized nodule seen on CT not well evaluated on x-ray.) Procedures - IVC sono (time) 2030 Bedside IVC sono: IVC measures (cm) (2.02), IVC collapsed c insp (cm) (2.02), High CVP, Fluid overload 0305 Bedside IVC sono: IVC measures (cm) (2.58), IVC collapsed c insp (cm) (1.74), Collapsibility index (.32), High CVP 0748 Bedside IVC sono: IVC measures (cm) (2.1), High CVP PD MEDICAL DECISION MAKING - ED course Complexity details: reviewed old records, reviewed results, re-evaluated patient, considered differential, d/w patient ED course: 70-year-old female presents to the emergency department with increasing dyspnea and hypoxia and is found to have evidence of acute congestive heart failure. She has chronic failure. She has been administered Lasix in route and has improvement in her oxygen saturation now. She is found to be significantly anemic on laboratory evaluation and 2 units of blood are infused. Beds are not available in the [facility] and treatment is undertaken in the ED. She is administered a second dose of lasix with the 1st unit of blood. She is placed onto C-PAP with good sats 99% with [place] oxygen and the CPAP. The patient is administered a second unit of blood and a third dose of Lasix and a DuoNeb treatment at the conclusion of treatment the patient continues to have some hypoxia with exertion and has some improvement. Departure - Departure Disposition: 01 Home, Self Care Clinical Impression: CHF exacerbation Qualifiers: Heart failure type: unspecified Qualified Code(s): I50.9 - Heart failure, unspecified Anemia Qualifiers: Anemia type: iron deficiency Iron deficiency anemia type: unspecified iron deficiency Qualified Code(s): D50.9 - Iron deficiency anemia, unspecified Condition: Stable Instructions: ED CHF General, ED Anemia Iron Deficiency Follow-Up: Andres Mancrea MD [Primary Care Provider] - Comments: Bibi today your congestive heart failure has worsened and we found you to be significantly anemic and we have transfused 2 units of blood. It looks like your blood counts are improved significantly and you will can need to continue to diurese. Continue your Lasix twice per day as previously prescribed.
[2021-09-23 20:55] LABS: BASOPHILS # (AUTO) 0.1 10^3/uL (0.0-0.1); BASOPHILS % (AUTO) 0.8 %; EOSINOPHILS # (AUTO) 0.2 10^3/uL (0.0-0.7); EOSINOPHILS % (AUTO) 2.4 %; HCT - HEMATOCRIT 22.7 % (37.0-47.0); LYMPHOCYTES # (AUTO) 0.9 10^3/uL (1.5-3.5); LYMPHOCYTES % (AUTO) 11.4 %; MEAN CORPUSCULAR HEMOGLOBIN 28.6 pg (27.0-31.0); MEAN CORPUSCULAR HGB CONC 26.4 g/dL (32.0-36.0); MEAN CORPUSCULAR VOLUME 108.1 fL (81.0-99.0); MEAN PLATELET VOLUME 9.7 fL (7.9-10.8); MONOCYTES # (AUTO) 0.7 10^3/uL (0.0-1.0); MONOCYTES % (AUTO) 8.8 %; NEUTROPHILS % (AUTO) 75.6 %; PLT - PLATELET COUNT 192 10^3/uL (130-450); RED CELL DISTRIBUTION WIDTH 17.2 % (12.0-15.0); WHITE BLOOD COUNT 7.9 x10^3/uL (4.8-10.8)
[2021-09-23 21:13] LABS: ALBUMIN 3.1 g/dL (3.2-5.5); ALBUMIN/GLOBULIN RATIO 0.9 (1.0-2.2); ALKALINE PHOSPHATASE 100 IU/L (42-121); ALT ALANINE AMINOTRANSFERASE 12 IU/L (10-60); AST ASPARTATE AMINOTRANSFERASE < 10 IU/L (10-42); BILIRUBIN,TOTAL 0.5 mg/dL (0.2-1.0); BUN - BLOOD UREA NITROGEN 33 mg/dL (6-20); CALCIUM 7.7 mg/dL (8.5-10.3); CARBON DIOXIDE - CO2 34 mmol/L (21-32); CHLORIDE 93 mmol/L (101-111); CREATININE 1.5 mg/dL (0.4-1.0); GFR - MDRD 35 (>89); GLUCOSE 127 mg/dL (70-100); LIPASE 39 U/L (22-51); SODIUM 135 mmol/L (135-145); TOTAL PROTEIN 6.5 g/dL (6.7-8.2)
--- NOTE | 2021-09-23 21:52 | XRAY Report ---
PROCEDURE: Chest 1 View X-Ray INDICATIONS: Chest Pain TECHNIQUE: One view of the chest was acquired. COMPARISON: Chest x-ray 07/25/2021. Chest CT 06/03/2021. FINDINGS: Surgical changes and devices: There is a left subclavian Port-A-Cath with the tip extending to the ju nction of the left innominate vein and superior vena cava. Lungs and pleura: There is mild pulmonary edema redemonstrated. Opacification of the superior right hemithorax is redemonstrated consistent with chronic consolidation or atelectasis. Previously visuali zed nodules on CT are not well visualized on x-ray. No pleural effusions or pneumothorax. Mediastinum: Mediastinal contours appear unchanged. Heart size is enlarged. Bones and chest wall: No suspicious bony lesions. Overlying soft tissues appear unremarkable. IMPRESSION: 1. Opacification of the superior hemithorax appears similar to the prior study and is consistent with chronic consolidation or atelectasis. 2. Cardiomegaly and pulmonary edema suggestive of congestive heart failure. 3. Previously visualized nodules seen on CT not well evaluated on x-ray. Reviewed by: Ashutosh Duque MD on 09/23/2021 9:50 PM PDT Approved by: Ashutosh Duque MD on 09/23/2021 9:50 PM PDT Station ID: [id number]
[2021-09-24] MEDS ORDERED: FUROSEMIDE 40 MG/4 ML VIAL IVP STA ×2 (00:59→06:08)
[2021-09-24 06:40] LABS: HCT - HEMATOCRIT 27.9 % (37.0-47.0); HGB - HEMOGLOBIN 7.7 g/dL (12.0-16.0)
[2021-09-24] MEDS ORDERED: IPRATROPIUM/ALBUTEROL 3 ML NEB INH STA ×2 (06:53→07:55)
[2021-09-24 10:45] VITALS: BP 130/84
== END 2021-09-24 10:45 | disposition home or self-care (01) ==
LOC: EDUNIT# → ED 19:25
DX: I50.9 Heart failure, unspecified (principal); D50.9 Iron deficiency anemia, unspecified; F17.200 Nicotine dependence, unspecified, uncomplicated
CPT/HCPCS: 36415; 36430; 71045; 80053; 83690; 83880; 84484; 85014; 85018; 85025; 86850; 86900; 86901; 86920; 93005; 94640; 96374; 96376; 99284; 99285; P9016

== ENCOUNTER 2021-09-29 16:06 | Inpatient (IN) | payer MEDICARE, OTHER ==
[2021-09-29 16:38] LABS: BASOPHILS % (AUTO) 0.4 %; EOSINOPHILS % (AUTO) 0.4 %; HCT - HEMATOCRIT 28.6 % (37.0-47.0); HGB - HEMOGLOBIN 7.8 g/dL (12.0-16.0); LYMPHOCYTES # (AUTO) 1.3 10^3/uL (1.5-3.5); LYMPHOCYTES % (AUTO) 22.4 %; MEAN CORPUSCULAR HEMOGLOBIN 27.9 pg (27.0-31.0); MEAN CORPUSCULAR HGB CONC 27.3 g/dL (32.0-36.0); MEAN CORPUSCULAR VOLUME 102.1 fL (81.0-99.0); MONOCYTES # (AUTO) 0.5 10^3/uL (0.0-1.0); MONOCYTES % (AUTO) 8.5 %; NEUTROPHILS # (AUTO) 3.8 10^3/uL (1.5-6.6); NEUTROPHILS % (AUTO) 68.1 %; PLT - PLATELET COUNT 202 10^3/uL (130-450); RED CELL DISTRIBUTION WIDTH 17.2 % (12.0-15.0); WHITE BLOOD COUNT 5.6 x10^3/uL (4.8-10.8)
--- NOTE | 2021-09-29 16:38 | XRAY Report ---
PROCEDURE: Chest 1 View X-Ray INDICATIONS: hypoxemia TECHNIQUE: One view of the chest was acquired. COMPARISON: Chest x-ray 09/23/2021 FINDINGS: Surgical changes and devices: Left Port-A-Cath is unchanged. Lungs and pleura: Diffuse increased pulmonary vascularity is present. There is blunting of the costop hrenic angles. Mediastinum: Mediastinal contours appear normal. Heart size is globally enlarged. Bones and chest wall: No suspicious bony lesions. Overlying soft tissues appear unremarkable. IMPRESSION: No cardiomegaly with increased vascularity and blunting of the costophrenic angles most suggestive of edema. Reviewed by: Mikayla Briseno MD on 09/29/2021 4:37 PM PDT Approved by: Mikayla Briseno MD on 09/29/2021 4:37 PM PDT Station ID: [id number]
[2021-09-29 16:44] LABS: VBG HCO3 33.4 mmol/L (23-28); VBG PH 7.371 (7.31-7.41); VBG PO2 40.8 mmHg (25-47); VBG TOTAL CO2 35.2 mmol/L (24-29)
[2021-09-29 16:45] LABS: VBG OXYGEN SATURATION 81.7 % (60-80)
--- NOTE | 2021-09-29 16:48 | ED Physician Documentation ---
History of Present Illness - Stated complaint Stated Complaint: RETAINING FLUID - Chief complaint Chief Complaint: General - History obtained from History obtained from: Patient, Friend - Additonal information Additional information: 70-year-old woman with history of CHF and metastatic lung cancer presents with a weeks worth of worsening of chronic pedal edema much worse over the last day associated with an urea for the last 3 days and shortness of breath worse over her baseline. She does have a productive cough with some right chest wall pain with coughing. No increasing shortness of breath. She is on Lasix currently 40 mg twice a day for pedal edema and CHF. Review of Systems Ten Systems: 10 systems reviewed and negative Constitutional: reports: Fatigue. denies: Fever, Chills Cardiac: reports: Chest pain / pressure. denies: Palpitations Respiratory: reports: Dyspnea (Not increased over chronic), Cough GI: reports: Abdominal Swelling. denies: Abdominal Pain PD PAST MEDICAL HISTORY - Past Medical History Cardiovascular: Congestive heart failure, Hypertension, High cholesterol, [place] Respiratory: COPD, Emphysema, Other (Lung cancer, is on home O2 ) Neuro: Peripheral neuropathy Endocrine/Autoimmune: Type 2 diabetes, HyPOthyroidism GI: Other : Incontinence HEENT: Chronic vision loss, Other Psych: Depression, Anxiety, Bipolar disorder Musculoskeletal: Osteoarthritis, Fatigue Derm: None - Past Surgical History Past Surgical History: Yes General: EGD Cardiovascular: Coronary stent, Cardiac catheterization HEENT: Tonsil/Adenoidectomy - Present Medications Home Medications: Ambulatory Orders Medication Instructions Recorded Confirmed Levothyroxine [Synthroid] 75 mcg PO DAILY 10/04/18 09/29/21 Zolpidem [Ambien] 10 mg ORAL QPM PRN 04/18/19 09/29/21 Gabapentin 600 mg PO BID 02/06/20 09/29/21 Omeprazole 40 mg PO DAILY 07/23/20 09/29/21 Folic Acid 1 mg PO DAILY 10/08/20 09/29/21 Metoprolol Succinate [Toprol Xl] 25 mg PO DAILY 11/13/20 09/29/21 Ferrous Gluconate 324 mg PO DAILY 05/27/21 09/29/21 HYDROcod/ACETAM 5/325 [[place] 5/325] 1 - 2 tab PO TID PRN 05/27/21 09/29/21 Sotorasib [Lumakras] 960 mg PO DAILY MDD due to start 06/25/21 09/29/21 5/3 Ondansetron Odt [Zofran Odt] 4 mg TL Q6H PRN #30 tab 06/30/21 09/29/21 Aspirin Chewable [[place] 81 mg PO DAILY #30 tablet 07/18/21 09/29/21 Aspirin] Simvastatin [Zocor] 80 mg PO HS #30 tablet 07/18/21 09/29/21 Triamcinolone Acetonide 1 applic TOP BID 07/25/21 09/29/21 Calcium Carbonate [Tums (Calcium 500 mg PO BID #60 tablet 07/29/21 09/29/21 Carbonate 500mg)] Furosemide [Lasix] 40 mg PO 0800,1400 #60 tablet 07/29/21 09/29/21 Ipratropium/Albuterol [Duoneb] 3 ml INH Q4HR PRN #100 neb 07/29/21 09/29/21 Escitalopram [Lexapro] 20 mg PO DAILY 08/04/21 09/29/21 - Allergies Allergies/Adverse Reactions: Allergies Allergy/AdvReac Type Severity Reaction Status Date / Time No Known Drug Allergies Allergy Verified 09/29/21 16:15 - Social History Does the pt smoke?: Yes Smoking Status: Current every day smoker Does the pt drink ETOH?: No Does the pt have substance abuse?: No - Immunizations Immunizations: TDAP >10years/unknown - POLST Patient has POLST: Yes POLST Status: DNR PD ED PE NORMAL - Vitals Vital signs reviewed: Yes - General General: Alert and oriented X 3, No acute distress - Neck Neck: Supple, no meningeal sign, No bony TTP - Cardiac Cardiac: RRR, No murmur - Respiratory Respiratory: No respiratory distress, Other (Wheezy throughout without focal findings) - Abdomen Abdomen: Normal bowel sounds, Soft, Non tender - Back Back: No CVA TTP, No spinal TTP - Derm Derm: Normal color, Warm and dry - Extremities Extremities: Other (3+ pitting pedal edema of the legs, symmetric, no sign of cellulitis) - Neuro Neuro: Alert and oriented X 3, Normal speech Results - Vitals Vitals: Vital Signs - 24 hr 09/29/21 09/29/21 09/29/21 16:12 16:35 16:55 Temperature 37.2 C Heart Rate 95 95 94 Respiratory 20 18 24 Rate Blood Pressure 100/53 L 107/48 L 107/48 L O2 Saturation 84 L 92 92 Oxygen O2 Source Nasal cannula Oxygen Flow Rate 2 - Labs Labs: Laboratory Tests 09/29/21 09/29/21 09/29/21 16:32 16:32 16:32 WBC 5.6 RBC 2.80 L Hgb 7.8 L Hct 28.6 L MCV 102.1 H MCH 27.9 MCHC 27.3 L RDW 17.2 H Plt Count 202 MPV 10.0 Neut # (Auto) 3.8 Lymph # (Auto) 1.3 L Sac # (Auto) 0.5 Eos # (Auto) 0.0 Baso # (Auto) 0.0 Absolute Nucleated RBC 0.00 Nucleated RBC % 0.0 VBG pH 7.371 VBG pCO2 59.0 H VBG pO2 40.8 VBG HCO3 33.4 H VBG Total CO2 35.2 H VBG O2 Saturation 81.7 H VBG Base Excess 7.0 H Sodium 136 Potassium 3.9 Chloride 91 L Carbon Dioxide 34 H Anion Gap 11.0 BUN 37 H Creatinine 1.9 H Estimated GFR (MDRD) 26 L Glucose 128 H Calcium 8.1 L Magnesium 2.6 Total Bilirubin 0.5 AST 11 ALT 12 Alkaline Phosphatase 122 H B-Natriuretic Peptide Total Protein 6.7 Albumin 3.0 L Globulin 3.7 Albumin/Globulin Ratio 0.8 L 09/29/21 16:32 WBC RBC Hgb Hct MCV MCH MCHC RDW Plt Count MPV Neut # (Auto) Lymph # (Auto) Sac # (Auto) Eos # (Auto) Baso # (Auto) Absolute Nucleated RBC Nucleated RBC % VBG pH VBG pCO2 VBG pO2 VBG HCO3 VBG Total CO2 VBG O2 Saturation VBG Base Excess Sodium Potassium Chloride Carbon Dioxide Anion Gap BUN Creatinine Estimated GFR (MDRD) Glucose Calcium Magnesium Total Bilirubin AST ALT Alkaline Phosphatase B-Natriuretic Peptide 3667 H Total Protein Albumin Globulin Albumin/Globulin Ratio - Rads (name of study) 1v cxr Radiology: EMP read contemporaneously PD MEDICAL DECISION MAKING - ED course ED course: 70-year-old woman with multiple comorbidities presents with anasarca despite having her outpatient Lasix dose recently increased. Work-up here demonstrates worsening CHF, her BNP a week ago was 1600, now 3600, creatinine has written and risen from 1.5-1.9. She was administered on 100 mg of IV Lasix in the department as well as some morphine for her chest pain with coughing. Spoke with Dr. Peoples for admission at 5:10 PM. Departure - Departure Disposition: 66 [facility] DC/Xfer Clinical Impression: Acute exacerbation of COPD with asthma, Acute on chronic diastolic heart failure, CHF exacerbation, Metastatic non-small cell lung cancer, Anasarca Condition: Serious
[2021-09-29 16:52] LABS: ALBUMIN/GLOBULIN RATIO 0.8 (1.0-2.2); BILIRUBIN,TOTAL 0.5 mg/dL (0.2-1.0); CALCIUM 8.1 mg/dL (8.5-10.3); CREATININE 1.9 mg/dL (0.4-1.0); MAGNESIUM 2.6 mg/dL (1.7-2.8); POTASSIUM 3.9 mmol/L (3.5-5.0); TOTAL PROTEIN 6.7 g/dL (6.7-8.2)
[2021-09-29] MEDS ORDERED: FUROSEMIDE 40 MG/4 ML VIAL IVP STA (16:58)
[2021-09-29] MEDS ORDERED: MORPHINE 2 MG/ML CARPUJECT IVP STA (17:07)
[2021-09-29] MEDS ORDERED: IPRATROPIUM/ALBUTEROL 3 ML NEB INH PRN (17:42)
[2021-09-29] MEDS ORDERED: ONDANSETRON ODT 4 MG TABLET TL PRN (17:42)
[2021-09-29] MEDS ORDERED: ZOLPIDEM 5 MG TABLET PO PRN (17:42)
[2021-09-29] MEDS ORDERED: MORPHINE 2 MG/ML CARPUJECT IVP PRN (17:46)
[2021-09-29] MEDS ORDERED: ACETAMINOPHEN 325 MG TABLET PO PRN (17:46)
[2021-09-29] MEDS ORDERED: SODIUM CHLORIDE FLUSH 0.9% 10 ML SYRINGE IVP PRN (17:46)
[2021-09-29] MEDS ORDERED: NICOTINE 14 MG PATCH TOP STA (17:52)
--- NOTE | 2021-09-29 18:01 | HISTORY & PHYSICAL EXAMINATION ---
Chief Complaint - Chief Complaint Chief Complaint: Cough, wheezing, shortness of breath Respiratory Admission HPI - Admitted From Admitted from: ED - History Obtained From Records Reviewed: RN notes reviewed, Old records reviewed History obtained from: Patient Exam limitations: No limitations - History of Present Illness Severity at the worst: reports: Moderate Associated Pain Quality Description: reports: Other (SOB) Context of Onset: reports: Exertion, Inspiration Timing: reports: Constant, Intermittent Improved with: reports: Rest, Oxygen Worsened by: reports: Exertion, Inspiration Associated symptoms: reports: Chest pain. denies: Abdominal pain, Diaphoresis, Nausea, Feeling faint / dizzy, General weakness HPI Comment/Other: Bibi is a 62-year-old female with a history of acute on chronic hypoxemic/hypercapnic respiratory failure, non-small cell metastatic lung CA, O2 dependent COPD-emphysema, CKD stage III, diet-controlled type 2 diabetes mellitus, obesity, depression with anxiety, hypertension, hyperlipidemia, prior DC, chronic tobacco use disorder, cor pulmonale, obesity hypoventilation syndrome, chronic lymphedema/anasarca, anemia, presenting to [facility] ER with worsening shortness of breath and associated wheezing, fatigue and pleuritic chest pain with productive cough. She was found to have CHF on CXR with a BNP of 3667. Previously was at 1600. LFTs within normal limits but creatinine up trended to 1.9 with a baseline ranging between 1.4-1.5, CO2 34, VBG shows a pH of 7.37, PCO2 of 59 and a bicarb of 33.4. Other electrolytes were unremarkable and CBC showed a hemoglobin 7.6 with baseline ranging between 7.5-9.0 however had been as low as 6.0 on 09/23 and has received blood transfusion secondary to severe iron deficiency anemia with prior EGD showing gastritis with bleeding could be the source of her bleeding and is on omeprazole with ferrous gluconate. On 07/15/2021 she had a hemoglobin of 11 g/dL. Patient had desatted to 84% on 2 L nasal cannula and she is typically on 2 L at home and uses a trilogy vent machine that she is compliant with and has been having increased abdominal girth, bilateral lower extremity worsening edema and worsening orthopnea and paroxysmal nocturnal dyspnea with dy spnea at rest and with associated pleuritic chest pain. She denies fevers, nausea, emesis, GI or symptoms, maculopapular rashes or joint tenderness.Hospitalist service was requested on further evaluation management treatment. PMH/PSH - Past Medical History Cardiovascular: positive: Congestive heart failure, Hypertension, High cho lesterol, [place] Respiratory: positive: COPD, Emphysema, Other (Lung cancer, is on home O2 ) Neuro: positive: Peripheral neuropathy Endocrine/Autoimmune: positive: Type 2 diabetes, HyPOthyroidism GI: positive: Other [place]: positive: None : positive: Incontinence HEENT: positive: Chronic vision loss, Other Psych: positive: Depression, Anxiety, Bipolar disorder Musculoskeletal: positive: Osteoarthritis, Fatigue Derm: positive: None MRSA Hx?: No - Past Surgical History General: positive: EGD Cardiovascular: positive: Coronary stent, Cardiac catheterization HEENT: positive: Tonsil/Adenoidectomy Social & Family Hx - Social History Does the pt smoke?: Yes Smoking Status: Current every day smoker Does the pt drink ETOH?: No Does the pt have substance abuse?: No - POLST Patient has POLST: Yes POLST Status: DNR Meds/Allgy - Home Medications Home Medications: Ambulatory Orders Medication Instructions Recorded Confirmed Levothyroxine [Synthroid] 75 mcg PO DAILY 10/04/18 09/29/21 Zolpidem [Ambien] 10 mg ORAL QPM PRN 04/18/19 09/29/21 Gabapentin 600 mg PO BID 02/06/20 09/29/21 Omeprazole 40 mg PO DAILY 07/23/20 09/29/21 Folic Acid 1 mg PO DAILY 10/08/20 09/29/21 Metoprolol Succinate [Toprol Xl] 25 mg PO DAILY 11/13/20 09/29/21 Ferrous Gluconate 324 mg PO DAILY 05/27/21 09/29/21 HYDROcod/ACETAM 5/325 [[place] 5/325] 1 - 2 tab PO TID PRN 05/27/21 09/29/21 Sotorasib [Lumakras] 960 mg PO DAILY MDD due to start 06/25/21 09/29/21 5/3 Ondansetron Odt [Zofran Odt] 4 mg TL Q6H PRN #30 tab 06/30/21 09/29/21 Aspirin Chewable [[place] 81 mg PO DAILY #30 tablet 07/18/21 09/29/21 Aspirin] Simvastatin [Zocor] 80 mg PO HS #30 tablet 07/18/21 09/29/21 Triamcinolone Acetonide 1 applic TOP BID 07/25/21 09/29/21 Calcium Carbonate [Tums (Calcium 500 mg PO BID #60 tablet 07/29/21 09/29/21 Carbonate 500mg)] Furosemide [Lasix] 40 mg PO 0800,1400 #60 tablet 07/29/21 09/29/21 Ipratropium/Albuterol [Duoneb] 3 ml INH Q4HR PRN #100 neb 07/29/21 09/29/21 Escitalopram [Lexapro] 20 mg PO DAILY 08/04/21 09/29/21 - Allergies Allergies/Adverse Reactions: Allergies Allergy/AdvReac Type Severity Reaction Status Date / Time No Known Drug Allergies Allergy Verified 09/29/21 16:15 Review of Systems - Constitutional Constitutional: reports: Fatigue, Weakness, Poor appetite, Weight gain. denies: Fever, Chills, Night sweats, Weight loss - Eyes Eyes: reports: Vision loss, Dipolpia. denies: Field loss - Ears, Nose & Throat Ears, Nose & Throat: denies: Tinnitus, Vertigo, Sore throat - Cardiovascular Cariovascular: reports: Chest pain, Edema, Orthopnea. denies: Irregular heart rate, Palpitations, Lightheadedness, Syncope - Respiratory Respiratory: reports: Cough, Sputum production, Wheezing, Orthopnea, SOB with exertion, Pleuritic pain. denies: Hemoptysis - Gastrointestinal Gastrointestinal: reports: Abdominal distention, Constipation, Reflux/heartburn, Bloating. denies: Diarrhea, Black stools, Nausea, Vomiting - Genitourinary Genitourinary: reports: Incontinence. denies: Dysuria, Frequency, Urgency - Musculoskeletal Musculoskeletal: denies: Muscle pain, Muscle aches, Muscle weakness, Gout, Joint swelling - Integumentary Integumentary: denies: Rash, Pruritis - Neurological Neurological: reports: General weakness. denies: Headache, Dizziness, Slurred speech - Psychiatric Psychiatric: reports: Depression, Anxiety. denies: Suicidal, Delusions, Hallucinations - Endocrine Endocrine: reports: Polyuria, Polydypsia, Polyphagia, Intolerance to cold. denies: Intolerance to heat - Hematologic/Lymphatic Hematologic/Lymphatic: reports: Anemia, Bruising. denies: Petechiae, Blood clots, Bleeding tendencies, Recurrent infections - All Other Systems All Other Systems: reports: Reviewed and negative Prior Level of Functionality: Patient's functional capacity is if she is independent with ADLs at home but limited due to her shortness of breath and COPD O2 dependent. Exam - Vital Signs Vital Signs: Vital Signs x48h Temp Pulse Resp BP Pulse Ox 09/29/21 17:16 95 25 H 98/73 91 L 09/29/21 16:55 94 24 107/48 L 92 09/29/21 16:35 95 18 107/48 L 92 09/29/21 16:12 37.2 C 95 20 100/53 L 84 L - Physical Exam General Appearance: positive: Alert, Mild distress, Anxious, Other ([place] appearance, obese, chronically-ill appearig) Eyes Bilateral: positive: Normal inspection, PERRL, EOMI, Conjunctivae nml, No scleral icterus ENT: positive: ENT inspection nml, No signs of dehydration. negative: Oral lesions Neck: positive: Nml inspection, Thyroid nml, No JVD, Trachea midline. negative: Thyromegaly, Carotid bruit, Tracheal deviation Respiratory: positive: Chest non-tender, Wheezes, Rales, Rhonchi Cardiovascular: positive: Regular rate & rhythm, No murmur, No gallop, Tachycardia. negative: JVD present, Gallop/S4 Peripheral Pulses: positive: 2+ Abdomen: positive: Non-tender, No organomegaly, Nml bowel sounds, Other (Anasarca present). negative: Tenderness, Guarding, Rebound, Hepatomegaly, Splenomegaly Back: positive: Nml inspection Skin: positive: Color nml, No rash, Warm. negative: Cyanosis, Diaphoresis, Skin rash, Embolic lesions Extremities: positive: Non-tender, Full ROM, Pedal edema, Other (3-4+ pitting edema up to mid thigh). negative: Calf tenderness Neurologic/Psychiatric: positive: Oriented x3, CN's nml (2-12), Weakness, Depressed mood/affect, Other (Appears somewhat somnolent but arousable.). negative: Facial droop Results - Lab Results Fish Bones: 09/29/21 16:32 09/29/21 16:32 Other Lab Results: Lab Results x24hrs 09/29/21 09/29/2109/29/22 Range/Units 16:32 16:32 16:32 WBC (4.8-10.8) x10^3/uL RBC (4.20-5.40) 10^6/uL Hgb (12.0-16.0) g/dL Hct (37.0-47.0) % MCV (81.0-99.0) fL MCH (27.0-31.0) pg MCHC (32.0-36.0) g/dL RDW (12.0-15.0) % Plt Count (130-450) 10^3/uL MPV (7.9-10.8) fL Neut # (Auto) (1.5-6.6) 10^3/uL Lymph # (Auto) (1.5-3.5) 10^3/uL [place] # (Auto) (0.0-1.0) 10^3/uL Eos # (Auto) (0.0-0.7) 10^3/uL Baso # (Auto) (0.0-0.1) 10^3/uL Absolute Nucleated RBC x10^3/uL Nucleated RBC % /100WBC VBG pH 7.371 (7.31-7.41) VBG pCO2 59.0 H (41-51) mmHg VBG pO2 40.8 (25-47) mmHg VBG HCO3 33.4 H (23-28) mmol/L VBG Total CO2 35.2 H (24-29) mmol/L VBG O2 Saturation 81.7 H (60-80) % VBG Base Excess 7.0 H (-2 - +2) mmol/L Sodium 136 (135-145) mmol/L Potassium 3.9 (3.5-5.0) mmol/L Chloride 91 L (101-111) mmol/L Carbon Dioxide 34 H (21-32) mmol/L Anion Gap 11.0 (6-13) BUN 37 H (6-20) mg/dL Creatinine 1.9 H (0.4-1.0) mg/dL Estimated GFR (MDRD) 26 L (>89) Glucose 128 H (70-100) mg/dL Calcium 8.1 L (8.5-10.3) mg/dL Magnesium 2.6 (1.7-2.8) mg/dL Total Bilirubin 0.5 (0.2-1.0) mg/dL AST 11 (10-42) IU/L ALT 12 (10-60) IU/L Alkaline Phosphatase 122 H (42-121) IU/L B-Natriuretic Peptide 3667 H (5-100) pg/mL Total Protein 6.7 (6.7-8.2) g/dL Albumin 3.0 L (3.2-5.5) g/dL Globulin 3.7 (2.1-4.2) g/dL Albumin/Globulin Ratio 0.8 L (1.0-2.2) 09/29/21 Range/Units 16:32 WBC 5.6 (4.8-10.8) x10^3/uL RBC 2.80 L (4.20-5.40) 10^6/uL Hgb 7.8 L (12.0-16.0) g/dL Hct 28.6 L (37.0-47.0) % MCV 102.1 H (81.0-99.0) fL MCH 27.9 (27.0-31.0) pg MCHC 27.3 L (32.0-36.0) g/dL RDW 17.2 H (12.0-15.0) % Plt Count 202 (130-450) 10^3/uL MPV 10.0 (7.9-10.8) fL Neut # (Auto) 3.8 (1.5-6.6) 10^3/uL Lymph # (Auto) 1.3 L (1.5-3.5) 10^3/uL [place] # (Auto) 0.5 (0.0-1.0) 10^3/uL Eos # (Auto) 0.0 (0.0-0.7) 10^3/uL Baso # (Auto) 0.0 (0.0-0.1) 10^3/uL Absolute Nucleated RBC 0.00 x10^3/uL Nucleated RBC % 0.0 /100WBC VBG pH (7.31-7.41) VBG pCO2 (41-51) mmHg VBG pO2 (25-47) mmHg VBG HCO3 (23-28) mmol/L VBG Total CO2 (24-29) mmol/L VBG O2 Saturation (60-80) % VBG Base Excess (-2 - +2) mmol/L Sodium (135-145) mmol/L Potassium (3.5-5.0) mmol/L Chloride (101-111) mmol/L Carbon Dioxide (21-32) mmol/L Anion Gap (6-13) BUN (6-20) mg/dL Creatinine (0.4-1.0) mg/dL Estimated GFR (MDRD) (>89) Glucose (70-100) mg/dL Calcium (8.5-10.3) mg/dL Magnesium (1.7-2.8) mg/dL Total Bilirubin (0.2-1.0) mg/dL AST (10-42) IU/L ALT (10-60) IU/L Alkaline Phosphatase (42-121) IU/L B-Natriuretic Peptide (5-100) pg/mL Total Protein (6.7-8.2) g/dL Albumin (3.2-5.5) g/dL Globulin (2.1-4.2) g/dL Albumin/Globulin Ratio (1.0-2.2) - Diagnostic Imaging Results Diagnostic Imaging Results: positive: Final report reviewed Impression/Plan - Problem List Problem List: Assessment/plan: 1. Acute on chronic hypoxemic/hypercapnic respiratory failure 2. COPD exacerbation 3. Symptomatic anemia 4. IAN/CKD stage III 5. Non-small cell lung CA with metastatic spread 6. Obesity hypoventilation syndrome 7. Anasarca/bilateral extremity edema 8. Hypertension 9. Hyperlipidemia 10. Peripheral neuropathy 11. Type 2 diabetes mellitus 12. Hypothyroidism 13. Anxiety with depression Plan: With 84% on her existing 2 L nasal cannula and has increased to 91-92% O2 saturation on 2 L now likely from ongoing smoking which has triggered her COPD and patient not being responsive to her home existing Lasix with possible tachyphylaxis. Patient given Lasix 80 mg IV x1 although she has an IAN superimposed on CKD stage III she might be developing possible diastolic dysfunction type cardiorenal syndrome versus worsening chronic kidney disease in the setting of her diuretic use and worsening overall edema. She does have anasarca on exam and may be amendable to paracenteses as this is causing increased orthopnea for which patient sits on a recliner as she is incontinent of urine as well, BNP elevated at 3667. We will continue with IV Lasix at 60 mg daily, adding Zaroxolyn to patient's regimen, zooming all home medications. Patient has compensatory metabolic alkalosis seen on VBG with chronic respiratory acidosis. Her acute on chronic diastolic preserved EF HF to be managed with IV Lasix, and avoiding hypoperfusion of kidneys with BP meds as this may precipitate further worsening of patient's IAN superimposed on CKD stage III, to avoid nephrotoxic agents and correct underlying electrolyte disturbances. Patient uses a trilogy vent machine at home and is compliant. She has seen palliative care services on 09/02 and wants to continue with her ex isting treatment for her non-small cell lung CA with metastatic spread. She is currently on Lumakrass which is a KRAS inhibitor that she currently takes for her lung CA and has seen oncology service on 09/02 for ongoing treatments. Her diarrhea has essentially resolved and she says she now has constipation. They are thinking about restaging CT chest in 2 months. Her anemia appears to be chronic however in looking at her trends she is at 7.6 on admission and previously ranging between 7.5-9.0 and required transfusions on 09/23 as she was low as 6.0 g/dL. She has iron deficiency anemia for which she is received IV iron infusions as well. She is on omeprazole for her gastritis presumably the source of her iron deficiency and slow blood loss anemia. They reduced her ferrous gluconate to 324 mg p.o. daily due to her constipation. H&H continues to be monitored and will transfuse less than 8 g/dL given her CHF and hypoxemic respiratory failure. Patient continues to smoke despite education and counseling and her non-small cell lung CA with metastatic spread diagnoses. She states that she has been smoking more than 30 years and is requesting a nicotine patch due to her smoking 2 packs a day. Will provide glycemic control with ISS and Accu-Cheks before meals and at bedtime with carb controlled diet, fluid restriction. Home medications for hypertension, hyperlipidemia, peripheral neuropathy, hypothyroidism as well as anxiety and her depression. GI prophylaxis: IV protonix. DVT prophylaxis: Lovenox CODE STATUS: DNR/DNI with limited interventions confirmed at bedside. Core Measures - Anticipated LOS I expect patient to be DC'd or transferred within 96 hours.: Yes - DVT/VTE - Prophylaxis VTE/DVT Prophylaxis med ordered at admit?: Yes
[2021-09-29 18:24] LABS: B. PARAPERTUSSIS- RESP PCR PAN NOT DETECTED; B. PERTUSSIS- RESP PCR PANEL NOT DETECTED; C. PNEUMONIAE- RESP PCR PANEL NOT DETECTED; CORONAVIRUS 229E-RESP PCR NOT DETECTED; CORONAVIRUS HKU1-RESP PCR NOT DETECTED; CORONAVIRUS NL63-RESP PCR NOT DETECTED; CORONAVIRUS OC43-RESP PCR NOT DETECTED; HUMAN METAPNEUMOVIRUS NOT DETECTED; INFLUENZA A- RESP PCR PANEL NOT DETECTED; INFLUENZA B - RESP PCR PANEL NOT DETECTED; M. PNEUMONIAE- RESP PCR PANEL NOT DETECTED; PARAINFLUENZA VIRUS 1 NOT DETECTED; PARAINFLUENZA VIRUS 2 NOT DETECTED; PARAINFLUENZA VIRUS 3 NOT DETECTED; PARAINFLUENZA VIRUS 4 NOT DETECTED; RHINOVIRUS/ENTEROVIRUS NOT DETECTED; RSV- RESP PCR PANEL NOT DETECTED; SARS-CoV-2 -RESP PCR PANEL NOT DETECTED
[2021-09-29] MEDS ORDERED: NICOTINE 21 MG PATCH TOP STA (18:41)
[2021-09-29 19:00] LABS: ESTIMATED AVERAGE GLUCOSE 82 mg/dL (70-100); HEMOGLOBIN A1c% 4.5 % (4.27-6.07)
[2021-09-29 19:33] LABS: % IRON SATURATION 5 % (20-50); IRON 20 ug/dL (28-170); TOTAL IRON BINDING CAPACITY 393 ug/dL (250-450); TRANSFERRIN 281 mg/dL (192-382)
[2021-09-29 19:42] LABS: THYROID STIMULATING HORMONE 4.62 uIU/mL (0.34-5.60)
[2021-09-29] MEDS: IPRATROPIUM/ALBUTEROL 3 ML NEB INH SCH (20:04)
[2021-09-29] MEDS: BUDESONIDE 0.5 MG/2 ML NEB INH SCH (20:04)
[2021-09-29 21:13] LABS: HCT - HEMATOCRIT 27.1 % (37.0-47.0); HGB - HEMOGLOBIN 7.5 g/dL (12.0-16.0)
[2021-09-29 22:29] LABS: BILIRUBIN,URINE NEGATIVE (NEGATIVE); GLUCOSE, URINE (UA) NEGATIVE (NEGATIVE); KETONES,URINE (UA) NEGATIVE (NEGATIVE); LEUKOCYTE ESTERASE, URINE SMALL (NEGATIVE); NITRITE,URINE POSITIVE (NEGATIVE); OCCULT BLOOD,URINE NEGATIVE (NEGATIVE); PH,URINE 5.5 PH (5.0-7.5); PROTEIN,URINE NEGATIVE (NEGATIVE); UROBILINOGEN,URINE 0.2 (NORMAL) E.U./dL (NORMAL)
[2021-09-29 22:37] LABS: BACTERIA,URINE Many /HPF (None Seen); CLARITY,URINE HAZY (CLEAR); RBC,URINE 0-5 /HPF (0-5); SQUAMOUS EPITHELIAL CELL,UR MANY Squamous (<= Few)
[2021-09-29] MEDS: PANTOPRAZOLE 40 MG VIAL IVP SCH (22:43)
[2021-09-29] MEDS: methylPREDNISolone SUCCINATE 40 MG/ML VIAL IVP SCH (22:46)
[2021-09-29] MEDS: BENZONATATE 100 MG CAPSULE PO SCH (22:48)
[2021-09-29] MEDS: ATORVASTATIN 40 MG TABLET PO SCH (22:48)
[2021-09-29] MEDS: CALCIUM CARBONATE CHEW 500 MG TABLET PO SCH (22:48)
[2021-09-29] MEDS: guaiFENesin 600 MG TABLET PO SCH (22:49)
[2021-09-29] MEDS: metOLazone 2.5 MG TABLET PO SCH (22:49)
[2021-09-29] MEDS: GABAPENTIN 300 MG CAPSULE PO SCH (22:49)
[2021-09-29] MEDS: INSULIN ASPART 300 UNIT/3 ML PEN SUBQ SCH (22:51)
[2021-09-29] MEDS: SODIUM CHLORIDE INHALATION 3 ML NEB INH SCH (22:53)
[2021-09-29] MEDS: TRIAMCINOLONE 0.1% OINT 15 GM TUBE TOP SCH (22:53)
[2021-09-30 06:12] LABS: BASOPHILS % (AUTO) 0.2 %; HCT - HEMATOCRIT 27.3 % (37.0-47.0); HGB - HEMOGLOBIN 7.2 g/dL (12.0-16.0); LYMPHOCYTES # (AUTO) 1.2 10^3/uL (1.5-3.5); LYMPHOCYTES % (AUTO) 18.7 %; MEAN CORPUSCULAR HEMOGLOBIN 27.7 pg (27.0-31.0); MEAN CORPUSCULAR HGB CONC 26.4 g/dL (32.0-36.0); MEAN PLATELET VOLUME 10.2 fL (7.9-10.8); MONOCYTES # (AUTO) 0.3 10^3/uL (0.0-1.0); MONOCYTES % (AUTO) 4.3 %; NEUTROPHILS % (AUTO) 75.7 %; NRBC ABSOLUTE COUNT (AUTO) 0.03 x10^3/uL; NUCLEATED RED BLOOD CELLS AUTO 0.5 /100WBC; PLT - PLATELET COUNT 198 10^3/uL (130-450); RED CELL DISTRIBUTION WIDTH 17.2 % (12.0-15.0); WHITE BLOOD COUNT 6.5 x10^3/uL (4.8-10.8)
[2021-09-30 06:21] LABS: SLIDE REVIEW? Indicated
[2021-09-30 06:24] LABS: CREATININE 1.9 mg/dL (0.4-1.0); MAGNESIUM 2.6 mg/dL (1.7-2.8); PHOSPHORUS 5.4 mg/dL (2.5-4.6); POTASSIUM 4.4 mmol/L (3.5-5.0)
[2021-09-30 06:43] LABS: PLATELET ESTIMATE, MANUAL NORMAL (130-450,000) (NORMAL); PLATELET MORPHOLOGY NORMAL APPEARANCE (NORMAL); RBC MORPHOLOGY (MULTIPLE) 2+ HYPOCHROMASIA (NORMAL); WBC MORPHOLOGY (MULTIPLE) NORMAL APPEARANCE (NORMAL)
[2021-09-30] MEDS: SODIUM CHLORIDE FLUSH 0.9% 10 ML SYRINGE IVP SCH ×4 (06:51→23:44)
[2021-09-30] MEDS: BENZONATATE 100 MG CAPSULE PO SCH ×3 (06:51→20:48)
[2021-09-30] MEDS: LEVOTHYROXINE 75 MCG TABLET PO SCH (06:51)
[2021-09-30] MEDS: IPRATROPIUM/ALBUTEROL 3 ML NEB INH SCH ×4 (07:07→18:02)
[2021-09-30] MEDS: BUDESONIDE 0.5 MG/2 ML NEB INH SCH ×5 (07:07→18:01)
[2021-09-30] MEDS: SODIUM CHLORIDE INHALATION 3 ML NEB INH SCH ×2 (07:08→11:01)
[2021-09-30] MEDS: CALCIUM CARBONATE CHEW 500 MG TABLET PO SCH ×2 (08:01→20:46)
[2021-09-30] MEDS: INSULIN ASPART 300 UNIT/3 ML PEN SUBQ SCH ×4 (08:01→20:53)
--- NOTE | 2021-09-30 08:14 | PROVIDER PROGRESS NOTE ---
Assessment/Plan - Problem List (1) Acute respiratory failure with hypoxia and hypercapnia Assessment/Plan: On 2 L of oxygen via nasal cannula with oxygen saturation at 94%. On DuoNeb, budesonide and antibiotics. Also receiving Lasix. (2) COPD exacerbation Assessment/Plan: 2 L of oxygen via nasal cannula. Budesonide 0.5 mg inhalation twice daily. DuoNeb every 4 hours as needed. DuoNeb every 4 hours scheduled. Solu-Medrol 40 mg IV twice daily. Azithromycin 500 mg IV daily x3 days. Cefuroxime 500 mg p.o. twice daily. (3) Acute on chronic diastolic heart failure Assessment/Plan: BNP was 5209. Patient has 3+ lower extremity edema. Lasix 60 mg IV daily. Patient was given an extra dose of Lasix 40 mg IV this afternoon. Metolazone 2.5 mg p.o. twice daily. Metoprolol succinate 25 mg p.o. daily (4) Anasarca Assessment/Plan: Likely 2/2 CHF exacerbation Lasix 60 mg IV daily. Patient was given an extra dose of Lasix 40 mg IV this afternoon. Metolazone 2.5 mg p.o. twice daily. 1200 total fluid restriction (5) Depression Assessment/Plan: On Lexapro 20 mg p.o. daily. (6) Diet-controlled type 2 diabetes mellitus Assessment/Plan: Sliding scale insulin. Accu-Cheks q. ACH S. (7) Hypothyroidism Assessment/Plan: Synthroid 75 mcg p.o. daily AC. (8) Peripheral neuropathy Assessment/Plan: Gabapentin 600 mg p.o. twice daily. (9) Tobacco abuse Assessment/Plan: Nicotine patch ordered. (10) Lung cancer Assessment/Plan: She is currently on Lumakrass which is a KRAS inhibitor that she currently takes for her lung CA and has seen oncology service on 09/02 for ongoing treatments. Patient continues to smoke despite education and counseling and her non-small cell lung CA with metastatic spread diagnoses. Patient is seen by aHrini Cuadra with palliative care in the outpatient setting. Harini Cuadra was consulted to see the patient in the hospital. - Current Meds Current Meds: Current Medications Generic Name Dose Route Start Last Admin Trade Name Freq PRN Reason Stop Dose Admin Acetaminophen 650 mg 09/29/21 17:46 09/29/21 22:50 Acetaminophen 325 Mg Tablet PO 650 mg Q4HR PRN Administration Pain 1 to 4, or Fever Albuterol/Ipratropium 3 ml 09/29/21 19:00 09/30/21 07:07 Ipratropium/Albuterol 3 Ml Neb INH 3 ml RTQ4H ARIC Administration Atorvastatin Calcium 40 mg 09/29/21 21:00 09/29/21 22:48 Atorvastatin 40 Mg Tablet PO 40 mg QPM ARIC Administration Benzonatate 200 mg 09/29/21 22:00 09/30/21 06:51 Benzonatate 100 Mg Capsule PO 200 mg TID ARIC Administration Budesonide 0.5 mg 09/29/21 19:00 09/30/21 07:13 Budesonide 0.5 Mg/2 Ml Neb INH 0.5 mg RTBID ARIC Administration Calcium Carbonate/Glycine 500 mg 09/29/21 20:00 09/30/21 08:01 Calcium Carbonate Chew 500 Mg Tablet PO 500 mg 0800,2000 ARIC Administration Cefuroxime Axetil 500 mg 09/29/21 21:00 09/29/21 22:50 Cefuroxime Axetil 250 Mg Tablet PO 500 mg BID ARIC Administration Gabapentin 600 mg 09/29/21 21:00 09/29/21 22:49 Gabapentin 300 Mg Capsule PO 600 mg BID ARIC Administration Guaifenesin 1,200 mg 09/29/21 21:00 09/29/21 22:49 Guaifenesin 600 Mg Tablet PO 1,200 mg BID ARIC Administration Insulin Aspart 1 - 5 unit 09/29/21 21:00 09/30/21 08:01 Insulin Aspart 300 Unit/3 Ml Pen SUBQ Not Given 0800,1200,1700,2100 [facility] Protocol Levothyroxine Sodium 75 mcg 09/30/21 07:00 09/30/21 06:51 Levothyroxine 75 Mcg Tablet PO 75 mcg QDAC ARIC Administration Methylprednisolone 40 mg 09/29/21 21:00 09/29/21 22:46 Methylprednisolone Succinate 40 Mg/Ml Vial IVP 40 mg BID ARIC Administration Metolazone 2.5 mg 09/29/21 21:00 09/29/21 22:49 Metolazone 2.5 Mg Tablet PO 2.5 mg BID ARIC Administration Pantoprazole Sodium 40 mg 09/29/21 21:00 09/29/21 22:43 Pantoprazole 40 Mg Vial IVP 40 mg DAILY ARIC Administration Sodium Chloride 10 ml 09/30/21 01:00 09/30/21 06:51 Sodium Chloride Flush 0.9% 10 Ml Syringe IVP 10 ml 0100,0900,1700 ARIC Administration Sodium Chloride 3 ml 09/29/21 19:00 09/30/21 07:08 Sodium Chloride Inhalation 3 Ml Neb INH Not Given RTQID ARIC Triamcinolone Acetonide 1 applic 09/29/21 21:00 09/29/21 22:53 Triamcinolone 0.1% Oint 15 Gm Tube TOP 1 applic BID ARIC Administration - Lab Result Fish Bone Diagrams: 09/30/21 05:44 09/30/21 05:44 - Additional Planning My Orders: My Active Orders 09/30/21 08:12 BNP - B-NATRIURETIC PEPTIDE [IAI] Stat Subjective - Subjective Patient Reports: Other (She was seated in the bedside chair at time of exam receiving a breathing treatment. She denied any significant dyspnea. Denied chest pain. She has 3+ lower extremity edema.) Objective Vital Signs: Vital Signs - 24 hr 09/29/21 09/29/21 09/29/21 16:12 16:35 16:55 Temperature 37.2 C Heart Rate 95 95 94 Heart Rate [ Monitoring electrodes] Respiratory 20 18 24 Rate Blood Pressure 100/53 L 107/48 L 107/48 L Blood Pressure [Right Brachial artery] O2 Saturation 84 L 92 92 09/29/21 09/29/21 09/29/21 17:16 20:00 20:31 Temperature 36.7 C Heart Rate 95 102 H Heart Rate [ 93 Monitoring electrodes] Respiratory 25 H 24 18 Rate Blood Pressure 98/73 Blood Pressure 115/57 L [Right Brachial artery] O2 Saturation 91 L 95 09/30/21 09/30/21 09/30/21 00:09 05:00 07:14 Temperature 37.2 C 36.4 C L Heart Rate 85 Heart Rate [ 93 84 Monitoring electrodes] Respiratory 22 20 20 Rate Blood Pressure Blood Pressure 121/62 122/59 L [Right Brachial artery] O2 Saturation 94 92 09/30/21 07:47 Temperature 37.1 C Heart Rate Heart Rate [ 80 Monitoring electrodes] Respiratory 19 Rate Blood Pressure Blood Pressure 110/59 L [Right Brachial artery] O2 Saturation 88 L Oxygen O2 Source Nasal cannula Oxygen Flow Rate 2 I&O (Last 24 Hrs): Intake and Output Totals x24h 09/28/21 09/29/21 09/30/21 23:59 23:59 23:59 Intake Total 200 Output Total 175 Balance 25 General: Alert, Oriented x3, Mild distress (respiratory) HEENT: PERRLA, EOMI Neck: Supple, No JVD Neuro: Alert, Non Focal, Oriented Times 3 Cardiovascular: Regular rate, Normal S1, Normal S2 Respiratory: Chest non-tender, No respiratory distress, Breath sounds nml Abdomen: Normal bowel sounds, Soft, No tenderness, No masses Extremities: Other (3+ lower extremity edema) Skin: No rashes, No breakdown - Results Results: Laboratory Results WBC 6.5 x10^3/uL (4.8-10.8) 09/30/21 05:44 RBC 2.60 10^6/uL (4.20-5.40) L 09/30/21 05:44 Hgb 7.2 g/dL (12.0-16.0) L 09/30/21 05:44 Hct 27.3 % (37.0-47.0) L 09/30/21 05:44 MCV 105.0 fL (81.0-99.0) H 09/30/21 05:44 MCH 27.7 pg (27.0-31.0) 09/30/21 05:44 MCHC 26.4 g/dL (32.0-36.0) L 09/30/21 05:44 RDW 17.2 % (12.0-15.0) H 09/30/21 05:44 Plt Count 198 10^3/uL (130-450) 09/30/21 05:44 MPV 10.2 fL (7.9-10.8) 09/30/21 05:44 Neut # (Auto) 5.0 10^3/uL (1.5-6.6) 09/30/21 05:44 Lymph # (Auto) 1.2 10^3/uL (1.5-3.5) L 09/30/21 05:44 [place] # (Auto) 0.3 10^3/uL (0.0-1.0) 09/30/21 05:44 Eos # (Auto) 0.0 10^3/uL (0.0-0.7) 09/30/21 05:44 Baso # (Auto) 0.0 10^3/uL (0.0-0.1) 09/30/21 05:44 Absolute Nucleated RBC 0.03 x10^3/uL 09/30/21 05:44 Nucleated RBC % 0.5 /100WBC 09/30/21 05:44 Manual Slide Review Indicated 09/30/21 05:44 WBC Morphology NORMAL APPEARANCE (NORMAL) 09/30/21 05:44 Platelet Estimate NORMAL (130-450,000) (NORMAL) 09/30/21 05:44 Platelet Morphology NORMAL APPEARANCE (NORMAL) 09/30/21 05:44 RBC Morph Micro Appear 2+ HYPOCHROMASIA (NORMAL) 09/30/21 05:44 VBG pH 7.371 (7.31-7.41) 09/29/21 16:32 VBG pCO2 59.0 mmHg (41-51) H 09/29/21 16:32 VBG pO2 40.8 mmHg (25-47) 09/29/21 16:32 VBG HCO3 33.4 mmol/L (23-28) H 09/29/21 16:32 VBG Total CO2 35.2 mmol/L (24-29) H 09/29/21 16:32 VBG O2 Saturation 81.7 % (60-80) H 09/29/21 16:32 VBG Base Excess 7.0 mmol/L (-2 - +2) H 09/29/21 16:32 Sodium 132 mmol/L (135-145) L 09/30/21 05:44 Potassium 4.4 mmol/L (3.5-5.0) 09/30/21 05:44 Chloride 93 mmol/L (101-111) L 09/30/21 05:44 Carbon Dioxide 32 mmol/L (21-32) 09/30/21 05:44 Anion Gap 7.0 (6-13) 09/30/21 05:44 BUN 37 mg/dL (6-20) H 09/30/21 05:44 Creatinine 1.9 mg/dL (0.4-1.0) H 09/30/21 05:44 Estimated GFR (MDRD) 26 (>89) L 09/30/21 05:44 Glucose 150 mg/dL (70-100) H 09/30/21 05:44 POC Whole Bld Glucose 125 mg/dL (70 - 100) H 09/30/21 07:44 Estimat Average Glucose 82 mg/dL (70-100) 09/29/21 16:32 Hemoglobin A1c % 4.5 % (4.27-6.07) 09/29/21 16:32 Calcium 8.0 mg/dL (8.5-10.3) L 09/30/21 05:44 Phosphorus 5.4 mg/dL (2.5-4.6) H 09/30/21 05:44 Magnesium 2.6 mg/dL (1.7-2.8) 09/30/21 05:44 Iron 20 ug/dL (28-170) L 09/29/21 19:00 TIBC 393 ug/dL (250-450) 09/29/21 19:00 % Saturation 5 % (20-50) L 09/29/21 19:00 Transferrin 281 mg/dL (192-382) 09/29/21 19:00 Total Bilirubin 0.5 mg/dL (0.2-1.0) 09/29/21 16:32 AST 11 IU/L (10-42) 09/29/21 16:32 ALT 12 IU/L (10-60) 09/29/21 16:32 Alkaline Phosphatase 122 IU/L (42-121) H 09/29/21 16:32 B-Natriuretic Peptide 3667 pg/mL (5-100) H 09/29/21 16:32 Total Protein 6.7 g/dL (6.7-8.2) 09/29/21 16:32 Albumin 3.0 g/dL (3.2-5.5) L 09/29/21 16:32 Globulin 3.7 g/dL (2.1-4.2) 09/29/21 16:32 Albumin/Globulin Ratio 0.8 (1.0-2.2) L 09/29/21 16:32 Vitamin B12 1256 pg/mL (180-914) H 09/29/21 19:00 Folate 44.00 ng/mL (5.90 - >24.8) 09/29/21 19:00 Procalcitonin 0.34 ng/mL (<0.5) 09/29/21 16:32 TSH 4.62 uIU/mL (0.34-5.60) 09/29/21 19:00 Urine Color YELLOW 09/29/21 19:35 Urine Clarity HAZY (CLEAR) 09/29/21 19:35 Urine pH 5.5 PH (5.0-7.5) 09/29/21 19:35 Ur Specific [place] 1.020 (1.002-1.030) 09/29/21 19:35 Urine Protein NEGATIVE mg/dL (NEGATIVE) 09/29/21 19:35 Urine Glucose (UA) NEGATIVE mg/dL (NEGATIVE) 09/29/21 19:35 Urine Ketones NEGATIVE mg/dL (NEGATIVE) 09/29/21 19:35 Urine Occult Blood NEGATIVE (NEGATIVE) 09/29/21 19:35 Urine Nitrite POSITIVE (NEGATIVE) H 09/29/21 19:35 Urine Bilirubin NEGATIVE (NEGATIVE) 09/29/21 19:35 Urine Urobilinogen 0.2 (NORMAL) E.U./dL (NORMAL) 09/29/21 19:35 Ur Leukocyte Esterase SMALL (NEGATIVE) H 09/29/21 19:35 Urine RBC 0-5 /HPF (0-5) 09/29/21 19:35 Urine WBC 6-10 /HPF (0-5) H 09/29/21 19:35 Ur Squamous Epith Cells MANY Squamous (<= Few) H 09/29/21 19:35 Urine Bacteria Many /HPF (None Seen) H 09/29/21 19:35 Ur Microscopic Review INDICATED 09/29/21 19:35 Urine Culture Comments NOT INDICATED 09/29/21 19:35 Nasal Adenovirus (PCR) NOT DETECTED 09/29/21 17:25 Nasal B. parapertussis DNA (PCR) NOT DETECTED 09/29/21 17:25 Nasal Coronavir 229E PCR NOT DETECTED 09/29/21 17:25 Nasal Coronavir HKU1 PCR NOT DETECTED 09/29/21 17:25 Nasal Coronavir NL63 PCR NOT DETECTED 09/29/21 17:25 Nasal Coronavir OC43 PCR NOT DETECTED 09/29/21 17:25 Nasal Enterovir/Rhinovir PCR NOT DETECTED 09/29/21 17:25 Nasal Influenza B PCR NOT DETECTED 09/29/21 17:25 Nasal Influenza A PCR NOT DETECTED 09/29/21 17:25 Nasal Parainfluen 1 PCR NOT DETECTED 09/29/21 17:25 Nasal Parainfluen 2 PCR NOT DETECTED 09/29/21 17:25 Nasal Parainfluen 3 PCR NOT DETECTED 09/29/21 17:25 Nasal Parainfluen 4 PCR NOT DETECTED 09/29/21 17:25 Nasal RSV (PCR) NOT DETECTED 09/29/21 17:25 Nasal B.pertussis DNA PCR NOT DETECTED 09/29/21 17:25 Nasal C.pneumoniae (PCR) NOT DETECTED 09/29/21 17:25 [place]aji Human Metapneumo PCR NOT DETECTED 09/29/21 17:25 Nasal M.pneumoniae (PCR) NOT DETECTED 09/29/21 17:25 Nasal SARS-CoV-2 (PCR) NOT DETECTED 09/29/21 17:25 Blood Type A POSITIVE 09/29/21 19:00 Antibody Screen NEGATIVE 09/29/21 19:00 - Procedures Procedures: Procedures EXCISION OF DESCENDING COLON, ENDO (10/18/20) EXCISION OF DESCENDING COLON, ENDO, DIAGN (10/18/20) EXCISION OF RECTUM, ENDO, DIAGN (10/18/20) EXCISION OF STOMACH, ENDO, DIAGN (10/18/20) EXCISION OF TRANSVERSE COLON, ENDO (10/18/20) EXCISION OF TRANSVERSE COLON, ENDO, DIAGN (10/18/20) INSERTION OF INFUSION DEV INTO SUP VENA CAVA, PERC APPROACH (06/18/15) ABX Reporting Has patient been on IV antibiotics over the past 48 hours?: Yes
[2021-09-30] MEDS ORDERED: FUROSEMIDE 20 MG/2 ML VIAL IVP SCH (09:00)
[2021-09-30] MEDS: ASPIRIN CHEW 81 MG TABLET PO SCH (09:00)
[2021-09-30] MEDS: methylPREDNISolone SUCCINATE 40 MG/ML VIAL IVP SCH ×2 (09:18→20:55)
[2021-09-30] MEDS: guaiFENesin 600 MG TABLET PO SCH ×2 (09:18→20:47)
[2021-09-30] MEDS: AZITHROMYCIN 250 MG TABLET PO SCH (09:18)
[2021-09-30] MEDS: FOLIC ACID 1 MG TABLET PO SCH (09:18)
[2021-09-30] MEDS: ENOXAPARIN 40 MG/0.4 ML SYRINGE SUBQ SCH (09:19)
[2021-09-30] MEDS: GABAPENTIN 300 MG CAPSULE PO SCH ×2 (09:19→20:47)
[2021-09-30] MEDS: ESCITALOPRAM 10 MG TABLET PO SCH (09:19)
[2021-09-30] MEDS: metOLazone 2.5 MG TABLET PO SCH ×2 (09:19→20:48)
[2021-09-30] MEDS: SOTORASIB 120 MG PO SCH (09:20)
[2021-09-30] MEDS: PANTOPRAZOLE 40 MG VIAL IVP SCH (09:24)
[2021-09-30] MEDS: METOPROLOL SUCCINATE 25 MG TABLET PO SCH (09:24)
[2021-09-30] MEDS: TRIAMCINOLONE 0.1% OINT 15 GM TUBE TOP SCH ×2 (09:25→20:49)
[2021-09-30] MEDS: NICOTINE 14 MG PATCH TOP SCH (12:06)
[2021-09-30] MEDS: FERROUS GLUCONATE 324 MG TABLET PO SCH (12:06)
--- NOTE | 2021-09-30 15:15 | PHARMACY PROGRESS NOTE ---
- Best Possible Medication History Admit Date and Time: 09/29/21 1747 Processed by: Nursing Medication History completed: Yes Secondary Source(s): Insurance records As the person ultimately responsible for medication therapy, providers are able to order a medication from an existing home medication list in [facility] via the "Reconcile Routine" prior to Confirmation of that medication by network support specialist. Such practice is discouraged except when the physician, in their clinical judgment, deems that a medical need exists for a medication without regard to previous use.
[2021-09-30] MEDS ORDERED: FUROSEMIDE 40 MG/4 ML VIAL IVP SCH (16:00)
[2021-09-30] MEDS: ATORVASTATIN 40 MG TABLET PO SCH (20:46)
[2021-09-30] MEDS ORDERED: PANTOPRAZOLE 40 MG TABLET PO SCH (21:00)
[2021-09-30] MEDS: HYDROcod/ACETAM 5/325 MG TABLET PO PRN (21:00)
[2021-10-01] MEDS: IPRATROPIUM/ALBUTEROL 3 ML NEB INH SCH ×4 (00:01→19:20)
[2021-10-01] MEDS: BENZONATATE 100 MG CAPSULE PO SCH ×3 (05:53→20:06)
[2021-10-01] MEDS: LEVOTHYROXINE 75 MCG TABLET PO SCH (05:53)
[2021-10-01] MEDS: metOLazone 2.5 MG TABLET PO SCH ×2 (05:53→13:16)
[2021-10-01 06:07] LABS: LYMPHOCYTES # (AUTO) 1.2 10^3/uL (1.5-3.5); LYMPHOCYTES % (AUTO) 22.2 %; MEAN CORPUSCULAR HGB CONC 27.2 g/dL (32.0-36.0); MEAN CORPUSCULAR VOLUME 102.9 fL (81.0-99.0); MEAN PLATELET VOLUME 10.4 fL (7.9-10.8); MONOCYTES # (AUTO) 0.3 10^3/uL (0.0-1.0); MONOCYTES % (AUTO) 6.2 %; NEUTROPHILS # (AUTO) 3.8 10^3/uL (1.5-6.6); NEUTROPHILS % (AUTO) 71.2 %; PLT - PLATELET COUNT 202 10^3/uL (130-450); RED BLOOD COUNT 2.43 10^6/uL (4.20-5.40); RED CELL DISTRIBUTION WIDTH 16.9 % (12.0-15.0); WHITE BLOOD COUNT 5.3 x10^3/uL (4.8-10.8)
[2021-10-01 06:18] LABS: CALCIUM 8.2 mg/dL (8.5-10.3); CREATININE 1.8 mg/dL (0.4-1.0); MAGNESIUM 2.4 mg/dL (1.7-2.8); PHOSPHORUS 5.5 mg/dL (2.5-4.6); POTASSIUM 4.2 mmol/L (3.5-5.0)
[2021-10-01 06:26] LABS: HGB - HEMOGLOBIN 6.8 g/dL (12.0-16.0); SLIDE REVIEW? Indicated
[2021-10-01 06:32] LABS: PLATELET ESTIMATE, MANUAL NORMAL (130-450,000) (NORMAL); PLATELET MORPHOLOGY NORMAL APPEARANCE (NORMAL); RBC MORPHOLOGY (MULTIPLE) 2+ HYPOCHROMASIA (NORMAL); WBC MORPHOLOGY (MULTIPLE) NORMAL APPEARANCE (NORMAL)
[2021-10-01] MEDS: FUROSEMIDE 20 MG/2 ML VIAL IVP SCH ×2 (06:52→14:14)
[2021-10-01] MEDS: BUDESONIDE 0.5 MG/2 ML NEB INH SCH ×2 (07:29→19:19)
[2021-10-01] MEDS: CALCIUM CARBONATE CHEW 500 MG TABLET PO SCH ×2 (07:46→20:05)
[2021-10-01] MEDS: INSULIN ASPART 300 UNIT/3 ML PEN SUBQ SCH ×4 (07:46→20:35)
[2021-10-01] MEDS: ESCITALOPRAM 10 MG TABLET PO SCH (08:37)
[2021-10-01] MEDS: ASPIRIN CHEW 81 MG TABLET PO SCH (08:37)
[2021-10-01] MEDS: AZITHROMYCIN 250 MG TABLET PO SCH (08:37)
[2021-10-01] MEDS: guaiFENesin 600 MG TABLET PO SCH ×2 (08:37→20:05)
[2021-10-01] MEDS: FOLIC ACID 1 MG TABLET PO SCH (08:37)
[2021-10-01] MEDS: ENOXAPARIN 40 MG/0.4 ML SYRINGE SUBQ SCH (08:38)
[2021-10-01] MEDS: GABAPENTIN 300 MG CAPSULE PO SCH ×2 (08:38→20:05)
[2021-10-01] MEDS: SOTORASIB 120 MG PO SCH (08:41)
[2021-10-01] MEDS: PANTOPRAZOLE 40 MG VIAL IVP SCH (08:41)
[2021-10-01] MEDS: methylPREDNISolone SUCCINATE 40 MG/ML VIAL IVP SCH ×2 (08:41→20:06)
[2021-10-01] MEDS: SODIUM CHLORIDE FLUSH 0.9% 10 ML SYRINGE IVP SCH ×2 (08:41→17:25)
[2021-10-01] MEDS: TRIAMCINOLONE 0.1% OINT 15 GM TUBE TOP SCH ×2 (08:47→20:06)
[2021-10-01] MEDS: NICOTINE 14 MG PATCH TOP SCH (08:48)
[2021-10-01] MEDS: METOPROLOL SUCCINATE 25 MG TABLET PO SCH (08:48)
--- NOTE | 2021-10-01 08:56 | PROVIDER PROGRESS NOTE ---
Assessment/Plan - Problem List (1) Acute respiratory failure with hypoxia and hypercapnia Assessment/Plan: On 2 L of oxygen via nasal cannula with oxygen saturation at 94%. On DuoNeb, budesonide. Also receiving Lasix. (2) COPD exacerbation Assessment/Plan: 2 L of oxygen via nasal cannula. Budesonide 0.5 mg inhalation twice daily. DuoNeb every 4 hours as needed. DuoNeb every 4 hours scheduled. Solu-Medrol 40 mg IV twice daily. Azithromycin and cefuroxime discontinued 10/01/21 (3) Acute on chronic diastolic heart failure Assessment/Plan: BNP improved from 5209 to 3315. Patient has 3+ lower extremity edema. Lasix 60 mg IV bid. Metolazone 2.5 mg p.o. twice daily. Metoprolol succinate 25 mg p.o. daily (4) Anasarca Assessment/Plan: Likely 2/2 CHF exacerbation Lasix 60 mg IV bid. Metolazone 2.5 mg p.o. twice daily. 1200 total fluid restriction (5) Depression Assessment/Plan: On Lexapro 20 mg p.o. daily. (6) Diet-controlled type 2 diabetes mellitus Assessment/Plan: Sliding scale insulin. Accu-Cheks q. ACH S. (7) Hypothyroidism Assessment/Plan: Synthroid 75 mcg p.o. daily AC. (8) Peripheral neuropathy Assessment/Plan: Gabapentin 600 mg p.o. twice daily. (9) Tobacco abuse Assessment/Plan: Nicotine patch ordered. (10) Lung cancer Assessment/Plan: She is currently on Lumakrass which is a KRAS inhibitor that she currently takes for her lung CA and has seen oncology service on 09/02 for ongoing treatments. Patient continues to smoke despite education and counseling and her non-small cell lung CA with metastatic spread diagnoses. Patient was seen by Harini Cuadra with palliative care today. (11) Anemia Assessment/Plan: Hemoglobin was 6.8 this morning. Patient was transfused 2 units of packed red blood cells. We will recheck with a.m. labs. MCV was 102.9. Vitamin B12 is 1256. Folate is 44. - Current Meds Current Meds: Current Medications Generic Name Dose Route Start Last Admin Trade Name Freq PRN Reason Stop Dose Admin Acetaminophen 650 mg 09/29/21 17:46 09/29/21 22:50 Acetaminophen 325 Mg Tablet PO 650 mg Q4HR PRN Administration Pain 1 to 4, or Fever Hydrocodone Bitart/Acetaminophen 1 - 2 tab 09/29/21 17:42 09/30/21 21:00 Hydrocod/Acetam 5/325 Mg Tablet PO 1 tab TID PRN Administration PAIN Albuterol/Ipratropium 3 ml 09/29/21 19:00 10/01/21 00:01 Ipratropium/Albuterol 3 Ml Neb INH 3 ml RTQ4H ARIC Administration Aspirin 81 mg 09/30/21 09:00 10/01/21 08:37 Aspirin Chew 81 Mg Tablet PO 81 mg DAILY ARIC Administration Atorvastatin Calcium 40 mg 09/29/21 21:00 09/30/21 20:46 Atorvastatin 40 Mg Tablet PO 40 mg QPM ARIC Administration Azithromycin 500 mg 09/30/21 09:00 10/01/21 08:37 Azithromycin 250 Mg Tablet PO 10/02/21 09:01 500 mg DAILY ARIC Administration Benzonatate 200 mg 09/29/21 22:00 10/01/21 05:53 Benzonatate 100 Mg Capsule PO 200 mg TID ARIC Administration Budesonide 0.5 mg 09/30/21 19:00 10/01/21 07:29 Budesonide 0.5 Mg/2 Ml Neb INH 0.5 mg RTBID ARIC Administration Calcium Carbonate/Glycine 500 mg 09/29/21 20:00 10/01/21 07:46 Calcium Carbonate Chew 500 Mg Tablet PO 500 mg 08,1999 ARIC Administration Cefuroxime Axetil 500 mg 09/29/21 21:00 10/01/21 08:36 Cefuroxime Axetil 250 Mg Tablet PO 500 mg BID ARIC Administration Enoxaparin Sodium 40 mg 09/30/21 09:00 10/01/21 08:38 Enoxaparin 40 Mg/0.4 Ml Syringe SUBQ 40 mg DAILY ARIC Administration Escitalopram Oxalate 20 mg 09/30/21 09:00 10/01/21 08:37 Escitalopram 10 Mg Tablet PO 20 mg DAILY ARIC Administration Ferrous Gluconate 324 mg 09/30/21 12:00 09/30/21 12:06 Ferrous Gluconate 324 Mg Tablet PO 324 mg QDLUNCH ARIC Administration Folic Acid 1 mg 09/30/21 09:00 10/01/21 08:37 Folic Acid 1 Mg Tablet PO 1 mg DAILY ARIC Administration Furosemide 60 mg 10/01/21 06:00 10/01/21 06:52 Furosemide 20 Mg/2 Ml Vial IVP 60 mg BIDDIURETIC ARIC Administration Gabapentin 600 mg 09/29/21 21:00 10/01/21 08:38 Gabapentin 300 Mg Capsule PO 600 mg BID ARIC Administration Guaifenesin 1,200 mg 09/29/21 21:00 10/01/21 08:37 Guaifenesin 600 Mg Tablet PO 1,200 mg BID ARIC Administration Insulin Aspart 1 - 5 unit 09/29/21 21:00 10/01/21 07:46 Insulin Aspart 300 Unit/3 Ml Pen SUBQ Not Given 0800,1200,1700,2100 [facility] Protocol Levothyroxine Sodium 75 mcg 09/30/21 07:00 10/01/21 05:53 Levothyroxine 75 Mcg Tablet PO 75 mcg QDAC ARIC Administration Methylprednisolone 40 mg 09/29/21 21:00 10/01/21 08:41 Methylprednisolone Succinate 40 Mg/Ml Vial IVP 40 mg BID ARIC Administration Metolazone 2.5 mg 10/01/21 05:30 10/01/21 05:53 Metolazone 2.5 Mg Tablet PO 2.5 mg 0530,1330 ARIC Administration Metoprolol Succinate 25 mg 09/30/21 09:00 10/01/21 08:48 Metoprolol Succinate 25 Mg Tablet PO 25 mg DAILY ARIC Administration Morphine Sulfate 2 mg 09/29/21 17:46 09/30/21 22:27 Morphine 2 Mg/Ml Carpuject IVP 2 mg Q2HR PRN Administration Pain 8 to 10 Nicotine 1 patch 09/30/21 12:00 10/01/21 08:48 Nicotine 14 Mg Patch TOP 1 patch DAILY ARIC Administration Pantoprazole Sodium 40 mg 09/29/21 21:00 10/01/21 08:41 Pantoprazole 40 Mg Vial IVP 40 mg DAILY RAIC Administration Sotorasib [ 8 each 09/30/21 09:00 10/01/21 08:41 Lumakras] 120 Mg PO Not Given Tablet DAILY ARIC Sodium Chloride 10 ml 09/30/21 01:00 10/01/21 08:41 Sodium Chloride Flush 0.9% 10 Ml Syringe IVP 10 ml 0100,0900,1700 ARIC Administration Triamcinolone Acetonide 1 applic 09/29/21 21:00 10/01/21 08:47 Triamcinolone 0.1% Oint 15 Gm Tube TOP 1 applic BID ARIC Administration - Lab Result Fish Bone Diagrams: 10/01/21 05:23 10/01/21 05:23 - Additional Planning My Orders: My Active Orders 09/30/21 12:00 Nicotine 14 mg Patch [Nicoderm] 1 patch TOP DAILY 09/30/21 15:55 Home CPAP/BiPAP/NPPV [RC] .ONCE 10/01/21 08:53 BNP - B-NATRIURETIC PEPTIDE [IAI] Stat 10/01/21 08:54 Transfuse RBCs Leukoreduced [RC] .ONCE RBC, LEUKOREDUCED Stat TYPE AND SCREEN Stat 10/02/21 05:00 BNP - B-NATRIURETIC PEPTIDE [IAI] DAILYLAB 10/03/21 05:00 BNP - B-NATRIURETIC PEPTIDE [IAI] DAILYLAB 10/04/21 05:00 BNP - B-NATRIURETIC PEPTIDE [IAI] DAILYLAB Subjective - Subjective Patient Reports: Other (She was resting comfortably in the bedside recliner at time of visit. She reported breathing better today than the previous day. She denied chest pain, abdominal pain, nausea or vomiting. She still has 3+ lower extremity edema.) Objective Vital Signs: Vital Signs - 24 hr 09/30/21 09/30/21 09/30/21 10:28 10:45 11:04 Temperature Heart Rate 76 Heart Rate [ Brachial] Heart Rate [ Monitoring electrodes] Heart Rate [ 81 81 Sitting] Respiratory 19 Rate Blood Pressure [Right Brachial artery] Blood Pressure 117/55 L 117/55 L [Sitting] O2 Saturation 09/30/21 09/30/21 09/30/21 16:49 18:06 20:53 Temperature 36.3 C L 36.6 C Heart Rate 79 Heart Rate [ Brachial] Heart Rate [ 85 87 Monitoring electrodes] Heart Rate [ Sitting] Respiratory 17 18 22 Rate Blood Pressure 99/44 L 124/60 [Right Brachial artery] Blood Pressure [Sitting] O2 Saturation 94 92 09/30/21 09/30/21 10/01/21 23:34 23:59 04:49 Temperature 36.4 C L 36.2 C L Heart Rate 82 Heart Rate [ 77 74 Brachial] Heart Rate [ Monitoring electrodes] Heart Rate [ Sitting] Respiratory 20 20 18 Rate Blood Pressure 97/52 L 95/50 L [Right Brachial artery] Blood Pressure [Sitting] O2 Saturation 95 94 10/01/21 10/01/21 10/01/21 06:01 07:08 07:35 Temperature Heart Rate 76 Heart Rate [ 70 Brachial] Heart Rate [ Monitoring electrodes] Heart Rate [ Sitting] Respiratory 20 Rate Blood Pressure 108/53 L [Right Brachial artery] Blood Pressure [Sitting] O2 Saturation 96 10/01/21 07:52 Temperature 36.4 C L Heart Rate Heart Rate [ 72 Brachial] Heart Rate [ Monitoring electrodes] Heart Rate [ Sitting] Respiratory 19 Rate Blood Pressure 102/53 L [Right Brachial artery] Blood Pressure [Sitting] O2 Saturation 98 Oxygen O2 Source Nasal cannula Oxygen Flow Rate 2 I&O (Last 24 Hrs): Intake and Output Totals x24h 09/29/21 09/30/21 10/01/21 23:59 23:59 23:59 Intake Total 960 200 Output Total 175 Balance 785 200 General: Alert, Oriented x3, Mild distress HEENT: PERRLA, EOMI Neck: Supple, No JVD Neuro: Alert, Oriented Times 3 Cardiovascular: Regular rate, Normal S1, Normal S2 Respiratory: Chest non-tender, No respiratory distress, Wheezes (mild) Abdomen: Normal bowel sounds, Soft, No tenderness, No masses Extremities: Other (3+ lower extremity edema) Skin: No rashes, No breakdown - Results Results: Laboratory Results WBC 5.3 x10^3/uL (4.8-10.8) 10/01/21 05:23 RBC 2.43 10^6/uL (4.20-5.40) L 10/01/21 05:23 Hgb 6.8 g/dL (12.0-16.0) L* 10/01/21 05:23 Hct 25.0 % (37.0-47.0) L 10/01/21 05:23 MCV 102.9 fL (81.0-99.0) H 10/01/21 05:23 MCH 28.0 pg (27.0-31.0) 10/01/21 05:23 MCHC 27.2 g/dL (32.0-36.0) L 10/01/21 05:23 RDW 16.9 % (12.0-15.0) H 10/01/21 05:23 Plt Count 202 10^3/uL (130-450) 10/01/21 05:23 MPV 10.4 fL (7.9-10.8) 10/01/21 05:23 Neut # (Auto) 3.8 10^3/uL (1.5-6.6) 10/01/21 05:23 Lymph # (Auto) 1.2 10^3/uL (1.5-3.5) L 10/01/21 05:23 [place] # (Auto) 0.3 10^3/uL (0.0-1.0) 10/01/21 05:23 Eos # (Auto) 0.0 10^3/uL (0.0-0.7) 10/01/21 05:23 Baso # (Auto) 0.0 10^3/uL (0.0-0.1) 10/01/21 05:23 Absolute Nucleated RBC 0.00 x10^3/uL 10/01/21 05:23 Nucleated RBC % 0.0 /100WBC 10/01/21 05:23 Manual Slide Review Indicated 10/01/21 05:23 WBC Morphology NORMAL APPEARANCE (NORMAL) 10/01/21 05:23 Platelet Estimate NORMAL (130-450,000) (NORMAL) 10/01/21 05:23 Platelet Morphology NORMAL APPEARANCE (NORMAL) 10/01/21 05:23 RBC Morph Micro Appear 2+ HYPOCHROMASIA (NORMAL) 10/01/21 05:23 VBG pH 7.371 (7.31-7.41) 09/29/21 16:32 VBG pCO2 59.0 mmHg (41-51) H 09/29/21 16:32 VBG pO2 40.8 mmHg (25-47) 09/29/21 16:32 VBG HCO3 33.4 mmol/L (23-28) H 09/29/21 16:32 VBG Total CO2 35.2 mmol/L (24-29) H 09/29/21 16:32 VBG O2 Saturation 81.7 % (60-80) H 09/29/21 16:32 VBG Base Excess 7.0 mmol/L (-2 - +2) H 09/29/21 16:32 Sodium 135 mmol/L (135-145) 10/01/21 05:23 Potassium 4.2 mmol/L (3.5-5.0) 10/01/21 05:23 Chloride 92 mmol/L (101-111) L 10/01/21 05:23 Carbon Dioxide 32 mmol/L (21-32) 10/01/21 05:23 Anion Gap 11.0 (6-13) 10/01/21 05:23 BUN 44 mg/dL (6-20) H 10/01/21 05:23 Creatinine 1.8 mg/dL (0.4-1.0) H 10/01/21 05:23 Estimated GFR (MDRD) 28 (>89) L 10/01/21 05:23 Glucose 147 mg/dL (70-100) H 10/01/21 05:23 POC Whole Bld Glucose 121 mg/dL (70 - 100) H 10/01/21 07:35 Estimat Average Glucose 82 mg/dL (70-100) 09/29/21 16:32 Hemoglobin A1c % 4.5 % (4.27-6.07) 09/29/21 16:32 Calcium 8.2 mg/dL (8.5-10.3) L 10/01/21 05:23 Phosphorus 5.5 mg/dL (2.5-4.6) H 10/01/21 05:23 Magnesium 2.4 mg/dL (1.7-2.8) 10/01/21 05:23 Iron 20 ug/dL (28-170) L 09/29/21 19:00 TIBC 393 ug/dL (250-450) 09/29/21 19:00 % Saturation 5 % (20-50) L 09/29/21 19:00 Transferrin 281 mg/dL (192-382) 09/29/21 19:00 Total Bilirubin 0.5 mg/dL (0.2-1.0) 09/29/21 16:32 AST 11 IU/L (10-42) 09/29/21 16:32 ALT 12 IU/L (10-60) 09/29/21 16:32 Alkaline Phosphatase 122 IU/L (42-121) H 09/29/21 16:32 B-Natriuretic Peptide 5209.00 pg/mL (5-100) H 09/30/21 05:44 Total Protein 6.7 g/dL (6.7-8.2) 09/29/21 16:32 Albumin 3.0 g/dL (3.2-5.5) L 09/29/21 16:32 Globulin 3.7 g/dL (2.1-4.2) 09/29/21 16:32 Albumin/Globulin Ratio 0.8 (1.0-2.2) L 09/29/21 16:32 Vitamin B12 1256 pg/mL (180-914) H 09/29/21 19:00 Folate 44.00 ng/mL (5.90 - >24.8) 09/29/21 19:00 Procalcitonin 0.34 ng/mL (<0.5) 09/29/21 16:32 TSH 4.62 uIU/mL (0.34-5.60) 09/29/21 19:00 Urine Color YELLOW 09/29/21 19:35 Urine Clarity HAZY (CLEAR) 09/29/21 19:35 Urine pH 5.5 PH (5.0-7.5) 09/29/21 19:35 Ur Specific [place] 1.020 (1.002-1.030) 09/29/21 19:35 Urine Protein NEGATIVE mg/dL (NEGATIVE) 09/29/21 19:35 Urine Glucose (UA) NEGATIVE mg/dL (NEGATIVE) 09/29/21 19:35 Urine Ketones NEGATIVE mg/dL (NEGATIVE) 09/29/21 19:35 Urine Occult Blood NEGATIVE (NEGATIVE) 09/29/21 19:35 Urine Nitrite POSITIVE (NEGATIVE) H 09/29/21 19:35 Urine Bilirubin NEGATIVE (NEGATIVE) 09/29/21 19:35 Urine Urobilinogen 0.2 (NORMAL) E.U./dL (NORMAL) 09/29/21 19:35 Ur Leukocyte Esterase SMALL (NEGATIVE) H 09/29/21 19:35 Urine RBC 0-5 /HPF (0-5) 09/29/21 19:35 Urine WBC 6-10 /HPF (0-5) H 09/29/21 19:35 Ur Squamous Epith Cells MANY Squamous (<= Few) H 09/29/21 19:35 Urine Bacteria Many /HPF (None Seen) H 09/29/21 19:35 Ur Microscopic Review INDICATED 09/29/21 19:35 Urine Culture Comments NOT INDICATED 09/29/21 19:35 Nasal Adenovirus (PCR) NOT DETECTED 09/29/21 17:25 Nasal B. parapertussis DNA (PCR) NOT DETECTED 09/29/21 17:25 Nasal Coronavir 229E PCR NOT DETECTED 09/29/21 17:25 Nasal Coronavir HKU1 PCR NOT DETECTED 09/29/21 17:25 Nasal Coronavir NL63 PCR NOT DETECTED 09/29/21 17:25 Nasal Coronavir OC43 PCR NOT DETECTED 09/29/21 17:25 Nasal Enterovir/Rhinovir PCR NOT DETECTED 09/29/21 17:25 Nasal Influenza B PCR NOT DETECTED 09/29/21 17:25 Nasal Influenza A PCR NOT DETECTED 09/29/21 17:25 Nasal Parainfluen 1 PCR NOT DETECTED 09/29/21 17:25 Nasal Parainfluen 2 PCR NOT DETECTED 09/29/21 17:25 Nasal Parainfluen 3 PCR NOT DETECTED 09/29/21 17:25 Nasal Parainfluen 4 PCR NOT DETECTED 09/29/21 17:25 Nasal RSV (PCR) NOT DETECTED 09/29/21 17:25 Nasal B.pertussis DNA PCR NOT DETECTED 09/29/21 17:25 Nasal C.pneumoniae (PCR) NOT DETECTED 09/29/21 17:25 [place] Human Metapneumo PCR NOT DETECTED 09/29/21 17:25 Nasal M.pneumoniae (PCR) NOT DETECTED 09/29/21 17:25 Nasal SARS-CoV-2 (PCR) NOT DETECTED 09/29/21 17:25 Blood Type A POSITIVE 09/29/21 19:00 Antibody Screen NEGATIVE 09/29/21 19:00 - Procedures Procedures: Procedures EXCISION OF DESCENDING COLON, ENDO (10/18/20) EXCISION OF DESCENDING COLON, ENDO, DIAGN (10/18/20) EXCISION OF RECTUM, ENDO, DIAGN (10/18/20) EXCISION OF STOMACH, ENDO, DIAGN (10/18/20) EXCISION OF TRANSVERSE COLON, ENDO (10/18/20) EXCISION OF TRANSVERSE COLON, ENDO, DIAGN (10/18/20) INSERTION OF INFUSION DEV INTO SUP VENA CAVA, PERC APPROACH (06/18/15) ABX Reporting Has patient been on IV antibiotics over the past 48 hours?: No
[2021-10-01] MEDS: FERROUS GLUCONATE 324 MG TABLET PO SCH (11:44)
[2021-10-01] MEDS ORDERED: POTASSIUM CHLORIDE 20 MEQ TABLET PO ONE (12:25)
[2021-10-01] MEDS: ATORVASTATIN 40 MG TABLET PO SCH (20:05)
[2021-10-02] MEDS: SODIUM CHLORIDE FLUSH 0.9% 10 ML SYRINGE IVP SCH ×3 (01:15→17:00)
[2021-10-02] MEDS: metOLazone 2.5 MG TABLET PO SCH ×2 (05:31→13:30)
[2021-10-02] MEDS: BENZONATATE 100 MG CAPSULE PO SCH ×3 (05:33→21:23)
[2021-10-02 05:45] LABS: BASOPHILS % (AUTO) 0.2 %; HCT - HEMATOCRIT 26.5 % (37.0-47.0); HGB - HEMOGLOBIN 7.7 g/dL (12.0-16.0); LYMPHOCYTES # (AUTO) 1.1 10^3/uL (1.5-3.5); LYMPHOCYTES % (AUTO) 22.9 %; MEAN CORPUSCULAR HEMOGLOBIN 28.3 pg (27.0-31.0); MEAN CORPUSCULAR HGB CONC 29.1 g/dL (32.0-36.0); MEAN CORPUSCULAR VOLUME 97.4 fL (81.0-99.0); MEAN PLATELET VOLUME 10.5 fL (7.9-10.8); MONOCYTES # (AUTO) 0.3 10^3/uL (0.0-1.0); MONOCYTES % (AUTO) 6.7 %; NEUTROPHILS # (AUTO) 3.4 10^3/uL (1.5-6.6); NEUTROPHILS % (AUTO) 69.8 %; PLT - PLATELET COUNT 202 10^3/uL (130-450); RED BLOOD COUNT 2.72 10^6/uL (4.20-5.40); RED CELL DISTRIBUTION WIDTH 16.7 % (12.0-15.0); WHITE BLOOD COUNT 4.9 x10^3/uL (4.8-10.8)
[2021-10-02 06:00] LABS: CALCIUM 7.8 mg/dL (8.5-10.3); CREATININE 1.7 mg/dL (0.4-1.0); MAGNESIUM 2.3 mg/dL (1.7-2.8); PHOSPHORUS 4.6 mg/dL (2.5-4.6); POTASSIUM 3.8 mmol/L (3.5-5.0)
[2021-10-02] MEDS: LEVOTHYROXINE 75 MCG TABLET PO SCH (07:01)
[2021-10-02] MEDS: FUROSEMIDE 20 MG/2 ML VIAL IVP SCH ×2 (07:01→13:33)
[2021-10-02] MEDS: CALCIUM CARBONATE CHEW 500 MG TABLET PO SCH ×2 (07:54→21:21)
[2021-10-02] MEDS: INSULIN ASPART 300 UNIT/3 ML PEN SUBQ SCH ×4 (08:01→21:27)
--- NOTE | 2021-10-02 08:19 | PROVIDER PROGRESS NOTE ---
Assessment/Plan - Problem List (1) Acute respiratory failure with hypoxia and hypercapnia Assessment/Plan: On 3 L of oxygen via nasal cannula with oxygen saturation at 92-95%. On DuoNeb, budesonide. Also receiving Lasix. (2) COPD exacerbation Assessment/Plan: 3 L of oxygen via nasal cannula. Budesonide 0.5 mg inhalation twice daily. DuoNeb every 4 hours as needed. DuoNeb every 4 hours scheduled. Solu-Medrol 40 mg IV twice daily. Azithromycin and cefuroxime discontinued 10/01/21 (3) Acute on chronic diastolic heart failure Assessment/Plan: BNP improved from 5209 to 3101. Patient has 3+ lower extremity edema. Lasix 60 mg IV bid. Metolazone 2.5 mg p.o. twice daily. Metoprolol succinate 25 mg p.o. daily (4) Anasarca Assessment/Plan: Likely 2/2 CHF exacerbation Lasix 60 mg IV bid. Albumin 12.5gX1 given Metolazone 2.5 mg p.o. twice daily. 1200 total fluid restriction (5) Depression Assessment/Plan: On Lexapro 20 mg p.o. daily. (6) Diet-controlled type 2 diabetes mellitus Assessment/Plan: Sliding scale insulin. Accu-Cheks q. ACH S. (7) Hypothyroidism Assessment/Plan: Synthroid 75 mcg p.o. daily AC. (8) Peripheral neuropathy Assessment/Plan: Gabapentin 600 mg p.o. twice daily. (9) Tobacco abuse Assessment/Plan: Nicotine patch ordered. (10) Lung cancer Assessment/Plan: She is currently on Lumakrass which is a KRAS inhibitor that she currently takes for her lung CA and has seen oncology service on 09/02 for ongoing treatments. Patient continues to smoke despite education and counseling and her non-small cell lung CA with metastatic spread diagnoses. Patient was seen by Harini Cuadra with palliative care today. (11) Anemia Assessment/Plan: Hemoglobin was 7.7 this morning. - Current Meds Current Meds: Current Medications Generic Name Dose Route Start Last Admin Trade Name Freq PRN Reason Stop Dose Admin Acetaminophen 650 mg 09/29/21 17:46 09/29/21 22:50 Acetaminophen 325 Mg Tablet PO 650 mg Q4HR PRN Administration Pain 1 to 4, or Fever Hydrocodone Bitart/Acetaminophen 1 - 2 tab 09/29/21 17:42 09/30/21 21:00 Hydrocod/Acetam 5/325 Mg Tablet PO 1 tab TID PRN Administration PAIN Albuterol/Ipratropium 3 ml 09/29/21 19:00 10/01/21 19:20 Ipratropium/Albuterol 3 Ml Neb INH 3 ml RTQ4H ARIC Administration Aspirin 81 mg 09/30/21 09:00 10/01/21 08:37 Aspirin Chew 81 Mg Tablet PO 81 mg DAILY ARIC Administration Atorvastatin Calcium 40 mg 09/29/21 21:00 10/01/21 20:05 Atorvastatin 40 Mg Tablet PO 40 mg QPM ARIC Administration Azithromycin 500 mg 09/30/21 09:00 10/01/21 08:37 Azithromycin 250 Mg Tablet PO 10/02/21 09:01 500 mg DAILY ARIC Administration Benzonatate 200 mg 09/29/21 22:00 10/02/21 05:33 Benzonatate 100 Mg Capsule PO Not Given TID ARIC Budesonide 0.5 mg 09/30/21 19:00 10/01/21 19:19 Budesonide 0.5 Mg/2 Ml Neb INH 0.5 mg RTBID ARIC Administration Calcium Carbonate/Glycine 500 mg 09/29/21 20:00 10/02/21 07:54 Calcium Carbonate Chew 500 Mg Tablet PO 500 mg 08,1999 ARIC Administration Enoxaparin Sodium 40 mg 09/30/21 09:00 10/01/21 08:38 Enoxaparin 40 Mg/0.4 Ml Syringe SUBQ 40 mg DAILY ARIC Administration Escitalopram Oxalate 20 mg 09/30/21 09:00 10/01/21 08:37 Escitalopram 10 Mg Tablet PO 20 mg DAILY ARIC Administration Ferrous Gluconate 324 mg 09/30/21 12:00 10/01/21 11:44 Ferrous Gluconate 324 Mg Tablet PO 324 mg QDLUNCH ARIC Administration Folic Acid 1 mg 09/30/21 09:00 10/01/21 08:37 Folic Acid 1 Mg Tablet PO 1 mg DAILY ARIC Administration Furosemide 60 mg 10/01/21 06:00 10/02/21 07:01 Furosemide 20 Mg/2 Ml Vial IVP 60 mg BIDDIURETIC ARIC Administration Gabapentin 600 mg 09/29/21 21:00 10/01/21 20:05 Gabapentin 300 Mg Capsule PO 600 mg BID ARIC Administration Guaifenesin 1,200 mg 09/29/21 21:00 10/01/21 20:05 Guaifenesin 600 Mg Tablet PO 1,200 mg BID ARIC Administration Insulin Aspart 1 - 5 unit 09/29/21 21:00 10/02/21 08:01 Insulin Aspart 300 Unit/3 Ml Pen SUBQ Not Given 0800,1200,1700,2100 [facility] Protocol Levothyroxine Sodium 75 mcg 09/30/21 07:00 10/02/21 07:01 Levothyroxine 75 Mcg Tablet PO 75 mcg QDAC ARIC Administration Methylprednisolone 40 mg 09/29/21 21:00 10/01/21 20:06 Methylprednisolone Succinate 40 Mg/Ml Vial IVP 40 mg BID ARIC Administration Metolazone 2.5 mg 10/01/21 05:30 10/02/21 05:31 Metolazone 2.5 Mg Tablet PO 2.5 mg 0530,1330 ARIC Administration Metoprolol Succinate 25 mg 09/30/21 09:00 10/01/21 08:48 Metoprolol Succinate 25 Mg Tablet PO 25 mg DAILY ARIC Administration Morphine Sulfate 2 mg 09/29/21 17:46 09/30/21 22:27 Morphine 2 Mg/Ml Carpuject IVP 2 mg Q2HR PRN Administration Pain 8 to 10 Nicotine 1 patch 09/30/21 12:00 10/01/21 08:48 Nicotine 14 Mg Patch TOP 1 patch DAILY ARIC Administration Pantoprazole Sodium 40 mg 09/29/21 21:00 10/01/21 08:41 Pantoprazole 40 Mg Vial IVP 40 mg DAILY ARIC Administration Sotorasib [ 8 each 09/30/21 09:00 10/01/21 08:41 Lumakras] 120 Mg PO Not Given Tablet DAILY [facility] Sodium Chloride 10 ml 09/30/21 01:00 10/02/21 01:15 Sodium Chloride Flush 0.9% 10 Ml Syringe IVP 10 ml 0100,0900,1700 [facility] Administration Triamcinolone Acetonide 1 applic 09/29/21 21:00 10/01/21 20:06 Triamcinolone 0.1% Oint 15 Gm Tube TOP 1 applic BID ARIC Administration - Lab Result Fish Bone Diagrams: 10/02/21 05:11 10/02/21 05:11 - Additional Planning My Orders: My Active Orders 10/01/21 08:54 Transfuse RBCs Leukoreduced [RC] .ONCE 10/03/21 05:00 BNP - B-NATRIURETIC PEPTIDE [IAI] DAILYLAB 10/04/21 05:00 BNP - B-NATRIURETIC PEPTIDE [IAI] DAILYLAB Subjective - Subjective Patient Reports: Other (She was resting comfortably in the bedside recliner at the time of exam. Denies any significant complaint.) Objective Vital Signs: Vital Signs - 24 hr 10/01/21 10/01/21 10/01/21 10:16 10:31 10:46 Temperature 36.5 C 36.4 C L 36.4 C L Heart Rate Heart Rate [ 74 75 73 Brachial] Respiratory 18 19 18 Rate Blood Pressure 109/69 120/65 129/65 [Right Brachial artery] O2 Saturation 95 96 95 10/01/21 10/01/21 10/01/21 11:16 12:50 12:56 Temperature 36.6 C 36.6 C 36.6 C Heart Rate Heart Rate [ 80 89 82 Brachial] Respiratory 18 18 18 Rate Blood Pressure 126/57 L 113/56 L 115/58 L [Right Brachial artery] O2 Saturation 96 98 98 10/01/21 10/01/21 10/01/21 13:01 13:16 15:27 Temperature 36.6 C 36.5 C Heart Rate 81 Heart Rate [ 77 70 Brachial] Respiratory 20 18 20 Rate Blood Pressure 100/61 109/61 [Right Brachial artery] O2 Saturation 96 94 10/01/21 10/01/21 10/02/21 15:32 20:40 01:15 Temperature 36.6 C 36.2 C L 36.3 C L Heart Rate Heart Rate [ 80 82 77 Brachial] Respiratory 18 22 18 Rate Blood Pressure 123/63 119/48 L 127/60 [Right Brachial artery] O2 Saturation 93 94 92 10/02/21 05:00 Temperature 36.3 C L Heart Rate Heart Rate [ 73 Brachial] Respiratory 22 Rate Blood Pressure 106/53 L [Right Brachial artery] O2 Saturation 92 Oxygen O2 Source Nasal cannula Oxygen Flow Rate 2 I&O (Last 24 Hrs): Intake and Output Totals x24h 09/30/21 10/01/21 10/02/21 23:59 23:59 23:59 Intake Total 960 1505 200 Output Total 175 1400 500 Balance 785 105 -300 General: Alert, Oriented x3, No acute distress HEENT: PERRLA, EOMI Neck: Supple, No JVD Neuro: Alert, Non Focal, Oriented Times 3 Cardiovascular: Regular rate, Normal S1, Normal S2 Respiratory: Wheezes, Other (mild respiratory distress, mild crackles) Abdomen: Normal bowel sounds, Soft, No tenderness Extremities: No clubbing, Other (3+ lower extremity edema) Skin: No rashes, No breakdown, No significant lesion - Results Results: Laboratory Results WBC 4.9 x10^3/uL (4.8-10.8) 10/02/21 05:11 RBC 2.72 10^6/uL (4.20-5.40) L 10/02/21 05:11 Hgb 7.7 g/dL (12.0-16.0) L 10/02/21 05:11 Hct 26.5 % (37.0-47.0) L 10/02/21 05:11 MCV 97.4 fL (81.0-99.0) 10/02/21 05:11 MCH 28.3 pg (27.0-31.0) 10/02/21 05:11 MCHC 29.1 g/dL (32.0-36.0) L 10/02/21 05:11 RDW 16.7 % (12.0-15.0) H 10/02/21 05:11 Plt Count 202 10^3/uL (130-450) 10/02/21 05:11 MPV 10.5 fL (7.9-10.8) 10/02/21 05:11 Neut # (Auto) 3.4 10^3/uL (1.5-6.6) 10/02/21 05:11 Lymph # (Auto) 1.1 10^3/uL (1.5-3.5) L 10/02/21 05:11 [place] # (Auto) 0.3 10^3/uL (0.0-1.0) 10/02/21 05:11 Eos # (Auto) 0.0 10^3/uL (0.0-0.7) 10/02/21 05:11 Baso # (Auto) 0.0 10^3/uL (0.0-0.1) 10/02/21 05:11 Absolute Nucleated RBC 0.00 x10^3/uL 10/02/21 05:11 Nucleated RBC % 0.0 /100WBC 10/02/21 05:11 Manual Slide Review Indicated 10/01/21 05:23 WBC Morphology NORMAL APPEARANCE (NORMAL) 10/01/21 05:23 Platelet Estimate NORMAL (130-450,000) (NORMAL) 10/01/21 05:23 Platelet Morphology NORMAL APPEARANCE (NORMAL) 10/01/21 05:23 RBC Morph Micro Appear 2+ HYPOCHROMASIA (NORMAL) 10/01/21 05:23 VBG pH 7.371 (7.31-7.41) 09/29/21 16:32 VBG pCO2 59.0 mmHg (41-51) H 09/29/21 16:32 VBG pO2 40.8 mmHg (25-47) 09/29/21 16:32 VBG HCO3 33.4 mmol/L (23-28) H 09/29/21 16:32 VBG Total CO2 35.2 mmol/L (24-29) H 09/29/21 16:32 VBG O2 Saturation 81.7 % (60-80) H 09/29/21 16:32 VBG Base Excess 7.0 mmol/L (-2 - +2) H 09/29/21 16:32 Sodium 131 mmol/L (135-145) L 10/02/21 05:11 Potassium 3.8 mmol/L (3.5-5.0) 10/02/21 05:11 Chloride 90 mmol/L (101-111) L 10/02/21 05:11 Carbon Dioxide 33 mmol/L (21-32) H 10/02/21 05:11 Anion Gap 8.0 (6-13) 10/02/21 05:11 BUN 45 mg/dL (6-20) H 10/02/21 05:11 Creatinine 1.7 mg/dL (0.4-1.0) H 10/02/21 05:11 Estimated GFR (MDRD) 30 (>89) L 10/02/21 05:11 Glucose 153 mg/dL (70-100) H 10/02/21 05:11 POC Whole Bld Glucose 103 mg/dL (70 - 100) H 10/02/21 08:01 Estimat Average Glucose 82 mg/dL (70-100) 09/29/21 16:32 Hemoglobin A1c % 4.5 % (4.27-6.07) 09/29/21 16:32 Calcium 7.8 mg/dL (8.5-10.3) L 10/02/21 05:11 Phosphorus 4.6 mg/dL (2.5-4.6) 10/02/21 05:11 Magnesium 2.3 mg/dL (1.7-2.8) 10/02/21 05:11 Iron 20 ug/dL (28-170) L 09/29/21 19:00 TIBC 393 ug/dL (250-450) 09/29/21 19:00 % Saturation 5 % (20-50) L 09/29/21 19:00 Transferrin 281 mg/dL (192-382) 09/29/21 19:00 Total Bilirubin 0.5 mg/dL (0.2-1.0) 09/29/21 16:32 AST 11 IU/L (10-42) 09/29/21 16:32 ALT 12 IU/L (10-60) 09/29/21 16:32 Alkaline Phosphatase 122 IU/L (42-121) H 09/29/21 16:32 B-Natriuretic Peptide 3101 pg/mL (5-100) H 10/02/21 05:11 Total Protein 6.7 g/dL (6.7-8.2) 09/29/21 16:32 Albumin 3.0 g/dL (3.2-5.5) L 09/29/21 16:32 Globulin 3.7 g/dL (2.1-4.2) 09/29/21 16:32 Albumin/Globulin Ratio 0.8 (1.0-2.2) L 09/29/21 16:32 Vitamin B12 1256 pg/mL (180-914) H 09/29/21 19:00 Folate 44.00 ng/mL (5.90 - >24.8) 09/29/21 19:00 Procalcitonin 0.34 ng/mL (<0.5) 09/29/21 16:32 TSH 4.62 uIU/mL (0.34-5.60) 09/29/21 19:00 Urine Color YELLOW 09/29/21 19:35 Urine Clarity HAZY (CLEAR) 09/29/21 19:35 Urine pH 5.5 PH (5.0-7.5) 09/29/21 19:35 Ur Specific [place] 1.020 (1.002-1.030) 09/29/21 19:35 Urine Protein NEGATIVE mg/dL (NEGATIVE) 09/29/21 19:35 Urine Glucose (UA) NEGATIVE mg/dL (NEGATIVE) 09/29/21 19:35 Urine Ketones NEGATIVE mg/dL (NEGATIVE) 09/29/21 19:35 Urine Occult Blood NEGATIVE (NEGATIVE) 09/29/21 19:35 Urine Nitrite POSITIVE (NEGATIVE) H 09/29/21 19:35 Urine Bilirubin NEGATIVE (NEGATIVE) 09/29/21 19:35 Urine Urobilinogen 0.2 (NORMAL) E.U./dL (NORMAL) 09/29/21 19:35 Ur Leukocyte Esterase SMALL (NEGATIVE) H 09/29/21 19:35 Urine RBC 0-5 /HPF (0-5) 09/29/21 19:35 Urine WBC 6-10 /HPF (0-5) H 09/29/21 19:35 Ur Squamous Epith Cells MANY Squamous (<= Few) H 09/29/21 19:35 Urine Bacteria Many /HPF (None Seen) H 09/29/21 19:35 Ur Microscopic Review INDICATED 09/29/21 19:35 Urine Culture Comments NOT INDICATED 09/29/21 19:35 Nasal Adenovirus (PCR) NOT DETECTED 09/29/21 17:25 Nasal B. parapertussis DNA (PCR) NOT DETECTED 09/29/21 17:25 Nasal Coronavir 229E PCR NOT DETECTED 09/29/21 17:25 Nasal Coronavir HKU1 PCR NOT DETECTED 09/29/21 17:25 Nasal Coronavir NL63 PCR NOT DETECTED 09/29/21 17:25 Nasal Coronavir OC43 PCR NOT DETECTED 09/29/21 17:25 Nasal Enterovir/Rhinovir PCR NOT DETECTED 09/29/21 17:25 Nasal Influenza B PCR NOT DETECTED 09/29/21 17:25 Nasal Influenza A PCR NOT DETECTED 09/29/21 17:25 Nasal Parainfluen 1 PCR NOT DETECTED 09/29/21 17:25 Nasal Parainfluen 2 PCR NOT DETECTED 09/29/21 17:25 Nasal Parainfluen 3 PCR NOT DETECTED 09/29/21 17:25 Nasal Parainfluen 4 PCR NOT DETECTED 09/29/21 17:25 Nasal RSV (PCR) NOT DETECTED 09/29/21 17:25 Nasal B.pertussis DNA PCR NOT DETECTED 09/29/21 17:25 Nasal C.pneumoniae (PCR) NOT DETECTED 09/29/21 17:25 Alhaji Human Metapneumo PCR NOT DETECTED 09/29/21 17:25 Nasal M.pneumoniae (PCR) NOT DETECTED 09/29/21 17:25 Nasal SARS-CoV-2 (PCR) NOT DETECTED 09/29/21 17:25 Blood Type A POSITIVE 09/29/21 19:00 Antibody Screen NEGATIVE 09/29/21 19:00 Crossmatch IS Only See Detail 09/29/21 19:00 - Procedures Procedures: Procedures EXCISION OF DESCENDING COLON, ENDO (10/18/20) EXCISION OF DESCENDING COLON, ENDO, DIAGN (10/18/20) EXCISION OF RECTUM, ENDO, DIAGN (10/18/20) EXCISION OF STOMACH, ENDO, DIAGN (10/18/20) EXCISION OF TRANSVERSE COLON, ENDO (10/18/20) EXCISION OF TRANSVERSE COLON, ENDO, DIAGN (10/18/20) INSERTION OF INFUSION DEV INTO SUP VENA CAVA, PERC APPROACH (06/18/15) ABX Reporting Has patient been on IV antibiotics over the past 48 hours?: No
[2021-10-02] MEDS: GABAPENTIN 300 MG CAPSULE PO SCH ×2 (08:26→21:21)
[2021-10-02] MEDS: AZITHROMYCIN 250 MG TABLET PO SCH (08:26)
[2021-10-02] MEDS: ASPIRIN CHEW 81 MG TABLET PO SCH (08:27)
[2021-10-02] MEDS: ESCITALOPRAM 10 MG TABLET PO SCH (08:27)
[2021-10-02] MEDS: METOPROLOL SUCCINATE 25 MG TABLET PO SCH (08:27)
[2021-10-02] MEDS: FOLIC ACID 1 MG TABLET PO SCH (08:27)
[2021-10-02] MEDS: NICOTINE 14 MG PATCH TOP SCH (08:27)
[2021-10-02] MEDS: ENOXAPARIN 40 MG/0.4 ML SYRINGE SUBQ SCH (08:27)
[2021-10-02] MEDS: guaiFENesin 600 MG TABLET PO SCH ×2 (08:27→21:22)
[2021-10-02] MEDS: TRIAMCINOLONE 0.1% OINT 15 GM TUBE TOP SCH ×2 (08:28→21:23)
[2021-10-02] MEDS: SOTORASIB 120 MG PO SCH (08:28)
[2021-10-02] MEDS: methylPREDNISolone SUCCINATE 40 MG/ML VIAL IVP SCH ×2 (08:28→21:22)
[2021-10-02] MEDS: PANTOPRAZOLE 40 MG VIAL IVP SCH (08:28)
[2021-10-02] MEDS: polyethylene glycoL 3350 17 GM PACKET PO PRN (08:31)
[2021-10-02] MEDS: BUDESONIDE 0.5 MG/2 ML NEB INH SCH ×2 (08:38→22:00)
[2021-10-02] MEDS: IPRATROPIUM/ALBUTEROL 3 ML NEB INH SCH ×4 (08:38→20:00)
[2021-10-02] MEDS: FERROUS GLUCONATE 324 MG TABLET PO SCH (11:32)
[2021-10-02] MEDS ORDERED: ALBUMIN 25% 12.5 GM/50 ML VIAL IV STA (13:28)
[2021-10-02] MEDS: ATORVASTATIN 40 MG TABLET PO SCH (21:21)
[2021-10-02] MEDS ORDERED: WATER FOR INJECTION,STERILE 10 ML MC ONE (21:25)
[2021-10-03] MEDS: SODIUM CHLORIDE FLUSH 0.9% 10 ML SYRINGE IVP SCH ×3 (00:40→16:52)
[2021-10-03] MEDS: LEVOTHYROXINE 75 MCG TABLET PO SCH (06:00)
[2021-10-03] MEDS: metOLazone 2.5 MG TABLET PO SCH ×2 (06:00→13:39)
[2021-10-03] MEDS: BENZONATATE 100 MG CAPSULE PO SCH (06:04)
[2021-10-03 06:11] LABS: BASOPHILS % (AUTO) 0.2 %; HCT - HEMATOCRIT 26.6 % (37.0-47.0); HGB - HEMOGLOBIN 7.7 g/dL (12.0-16.0); LYMPHOCYTES % (AUTO) 18.3 %; MEAN CORPUSCULAR HEMOGLOBIN 28.5 pg (27.0-31.0); MEAN CORPUSCULAR HGB CONC 28.9 g/dL (32.0-36.0); MEAN CORPUSCULAR VOLUME 98.5 fL (81.0-99.0); MEAN PLATELET VOLUME 10.3 fL (7.9-10.8); MONOCYTES # (AUTO) 0.3 10^3/uL (0.0-1.0); MONOCYTES % (AUTO) 5.8 %; NEUTROPHILS # (AUTO) 3.9 10^3/uL (1.5-6.6); NEUTROPHILS % (AUTO) 75.3 %; PLT - PLATELET COUNT 214 10^3/uL (130-450); RED CELL DISTRIBUTION WIDTH 16.2 % (12.0-15.0); WHITE BLOOD COUNT 5.2 x10^3/uL (4.8-10.8)
[2021-10-03 06:12] LABS: CALCIUM 7.8 mg/dL (8.5-10.3); CREATININE 1.6 mg/dL (0.4-1.0); POTASSIUM 3.8 mmol/L (3.5-5.0)
[2021-10-03] MEDS: FUROSEMIDE 20 MG/2 ML VIAL IVP SCH ×2 (06:44→13:42)
[2021-10-03] MEDS: BUDESONIDE 0.5 MG/2 ML NEB INH SCH ×2 (07:35→19:40)
[2021-10-03] MEDS: IPRATROPIUM/ALBUTEROL 3 ML NEB INH SCH ×4 (07:35→19:40)
[2021-10-03] MEDS: INSULIN ASPART 300 UNIT/3 ML PEN SUBQ SCH ×4 (08:04→21:20)
[2021-10-03] MEDS: CALCIUM CARBONATE CHEW 500 MG TABLET PO SCH ×2 (08:05→21:22)
[2021-10-03] MEDS: methylPREDNISolone SUCCINATE 40 MG/ML VIAL IVP SCH (08:07)
[2021-10-03] MEDS: PANTOPRAZOLE 40 MG VIAL IVP SCH (08:07)
[2021-10-03] MEDS: SENNA 8.6 MG TABLET PO SCH ×3 (08:08→20:51)
[2021-10-03] MEDS: METOPROLOL SUCCINATE 25 MG TABLET PO SCH ×2 (08:08→10:25)
[2021-10-03] MEDS: GABAPENTIN 300 MG CAPSULE PO SCH ×2 (08:08→21:22)
[2021-10-03] MEDS: ESCITALOPRAM 10 MG TABLET PO SCH (08:08)
[2021-10-03] MEDS: DOCUSATE SODIUM 250 MG CAPSULE PO SCH (08:09)
[2021-10-03] MEDS: guaiFENesin 600 MG TABLET PO SCH ×2 (08:09→21:21)
[2021-10-03] MEDS: NICOTINE 14 MG PATCH TOP SCH (08:10)
[2021-10-03] MEDS: SOTORASIB 120 MG PO SCH (08:10)
[2021-10-03] MEDS: TRIAMCINOLONE 0.1% OINT 15 GM TUBE TOP SCH ×2 (08:10→20:49)
[2021-10-03] MEDS: FOLIC ACID 1 MG TABLET PO SCH (08:11)
[2021-10-03] MEDS: ENOXAPARIN 40 MG/0.4 ML SYRINGE SUBQ SCH (08:11)
[2021-10-03] MEDS: polyethylene glycoL 3350 17 GM PACKET PO PRN (08:11)
[2021-10-03] MEDS: ASPIRIN CHEW 81 MG TABLET PO SCH (09:00)
--- NOTE | 2021-10-03 10:31 | PROVIDER PROGRESS NOTE ---
Assessment/Plan - Problem List (1) Acute respiratory failure with hypoxia and hypercapnia Assessment/Plan: On 2 L of oxygen via nasal cannula with oxygen saturation at 92-95%. On DuoNeb, budesonide. Also receiving Lasix. (2) COPD exacerbation Assessment/Plan: 3 L of oxygen via nasal cannula. Budesonide 0.5 mg inhalation twice daily. DuoNeb every 4 hours as needed. DuoNeb every 4 hours scheduled. Solu-Medrol discontinued 10/03/21 Prednisone 20mg po daily ordered Azithromycin and cefuroxime discontinued 10/01/21 (3) Acute on chronic diastolic heart failure Assessment/Plan: BNP 3376. Patient has 3+ lower extremity edema. Lasix 80 mg IV bid. Metolazone 2.5 mg p.o. twice daily. Metoprolol succinate 25 mg p.o. daily (4) Anasarca Assessment/Plan: Likely 2/2 CHF exacerbation Lasix 80 mg IV bid. Albumin 12.5gX1 given Metolazone 2.5 mg p.o. twice daily. 1200 total fluid restriction (5) Depression Assessment/Plan: On Lexapro 20 mg p.o. daily. (6) Diet-controlled type 2 diabetes mellitus Assessment/Plan: Sliding scale insulin. Accu-Cheks q. ACH S. (7) Hypothyroidism Assessment/Plan: Synthroid 75 mcg p.o. daily AC. (8) Peripheral neuropathy Assessment/Plan: Gabapentin 600 mg p.o. twice daily. (9) Tobacco abuse Assessment/Plan: Nicotine patch ordered. (10) Lung cancer Assessment/Plan: She is currently on Lumakrass which is a KRAS inhibitor that she currently takes for her lung CA and has seen oncology service on 09/02 for ongoing treatments. Patient continues to smoke despite education and counseling and her non-small cell lung CA with metastatic spread diagnoses. Patient was seen by Harini Cuadra with palliative care today. (11) Anemia Assessment/Plan: Hemoglobin was 7.7 this morning. - Current Meds Current Meds: Current Medications Generic Name Dose Route Start Last Admin Trade Name Freq PRN Reason Stop Dose Admin Acetaminophen 650 mg 09/29/21 17:46 09/29/21 22:50 Acetaminophen 325 Mg Tablet PO 650 mg Q4HR PRN Administration Pain 1 to 4, or Fever Hydrocodone Bitart/Acetaminophen 1 - 2 tab 09/29/21 17:42 09/30/21 21:00 Hydrocod/Acetam 5/325 Mg Tablet PO 1 tab TID PRN Administration PAIN Albuterol/Ipratropium 3 ml 09/29/21 19:00 10/02/21 20:00 Ipratropium/Albuterol 3 Ml Neb INH 3 ml RTQ4H ARIC Administration Aspirin 81 mg 09/30/21 09:00 10/02/21 08:27 Aspirin Chew 81 Mg Tablet PO 81 mg DAILY ARIC Administration Atorvastatin Calcium 40 mg 09/29/21 21:00 10/02/21 21:21 Atorvastatin 40 Mg Tablet PO 40 mg QPM ARIC Administration Benzonatate 200 mg 09/29/21 22:00 10/03/21 06:04 Benzonatate 100 Mg Capsule PO Not Given TID ARIC Budesonide 0.5 mg 09/30/21 19:00 10/02/21 22:00 Budesonide 0.5 Mg/2 Ml Neb INH 0.5 mg RTBID ARIC Administration Calcium Carbonate/Glycine 500 mg 09/29/21 20:00 10/03/21 08:05 Calcium Carbonate Chew 500 Mg Tablet PO 500 mg 799,1999 ARIC Administration Docusate Sodium 250 - 500 mg 10/03/21 09:00 10/03/21 08:09 Docusate Sodium 250 Mg Capsule PO 250 mg DAILY ARIC Administration Enoxaparin Sodium 40 mg 09/30/21 09:00 10/03/21 08:11 Enoxaparin 40 Mg/0.4 Ml Syringe SUBQ 40 mg DAILY ARIC Administration Escitalopram Oxalate 20 mg 09/30/21 09:00 10/03/21 08:08 Escitalopram 10 Mg Tablet PO 20 mg DAILY ARIC Administration Ferrous Gluconate 324 mg 09/30/21 12:00 10/02/21 11:32 Ferrous Gluconate 324 Mg Tablet PO 324 mg QDLUNCH ARIC Administration Folic Acid 1 mg 09/30/21 09:00 10/03/21 08:11 Folic Acid 1 Mg Tablet PO 1 mg DAILY ARIC Administration Furosemide 60 mg 10/01/21 06:00 10/03/21 06:44 Furosemide 20 Mg/2 Ml Vial IVP 60 mg BIDDIURETIC ARIC Administration Gabapentin 600 mg 09/29/21 21:00 10/03/21 08:08 Gabapentin 300 Mg Capsule PO 600 mg BID ARIC Administration Guaifenesin 1,200 mg 09/29/21 21:00 10/03/21 08:09 Guaifenesin 600 Mg Tablet PO 1,200 mg BID ARIC Administration Insulin Aspart 1 - 5 unit 09/29/21 21:00 10/03/21 08:04 Insulin Aspart 300 Unit/3 Ml Pen SUBQ 1 unit 0800,1200,1700,2100 ARIC Administration Protocol Levothyroxine Sodium 75 mcg 09/30/21 07:00 10/03/21 06:00 Levothyroxine 75 Mcg Tablet PO 75 mcg QDAC ARIC Administration Methylprednisolone 40 mg 09/29/21 21:00 10/03/21 08:07 Methylprednisolone Succinate 40 Mg/Ml Vial IVP 40 mg BID ARIC Administration Metolazone 2.5 mg 10/01/21 05:30 10/03/21 06:00 Metolazone 2.5 Mg Tablet PO 2.5 mg 0530,1330 ARIC Administration Metoprolol Succinate 25 mg 09/30/21 09:00 10/03/21 10:25 Metoprolol Succinate 25 Mg Tablet PO Not Given DAILY ARIC Morphine Sulfate 2 mg 09/29/21 17:46 09/30/21 22:27 Morphine 2 Mg/Ml Carpuject IVP 2 mg Q2HR PRN Administration Pain 8 to 10 Nicotine 1 patch 09/30/21 12:00 10/03/21 08:10 Nicotine 14 Mg Patch TOP 1 patch DAILY ARIC Administration Pantoprazole Sodium 40 mg 09/29/21 21:00 10/03/21 08:07 Pantoprazole 40 Mg Vial IVP 40 mg DAILY ARIC Administration Sotorasib [ 8 each 09/30/21 09:00 10/03/21 08:10 Lumakras] 120 Mg PO 8 each Tablet DAILY ARCI Administration Polyethylene Glycol 17 gm 09/29/21 17:46 10/03/21 08:11 Polyethylene Glycol 3350 17 Gm Packet PO 17 gm DAILY PRN Administration Constipation Senna 8.6 - 17.2 mg 10/03/21 09:00 10/03/21 08:08 Senna 8.6 Mg Tablet PO 8.6 mg DAILY ARIC Administration Sodium Chloride 10 ml 09/30/21 01:00 10/03/21 08:10 Sodium Chloride Flush 0.9% 10 Ml Syringe IVP 10 ml 0100,0900,1700 ARIC Administration Triamcinolone Acetonide 1 applic 09/29/21 21:00 10/03/21 08:10 Triamcinolone 0.1% Oint 15 Gm Tube TOP 1 applic BID ARIC Administration - Lab Result Fish Bone Diagrams: 10/03/21 05:18 10/03/21 05:18 - Additional Planning My Orders: My Active Orders 10/04/21 05:00 BNP - B-NATRIURETIC PEPTIDE [IAI] DAILYLAB Subjective - Subjective Patient Reports: Other (Comfortably in bed. Denied any new complaints.) Objective Vital Signs: Vital Signs - 24 hr 10/02/21 10/02/21 10/02/21 11:07 11:25 13:00 Temperature 36.6 C 36.5 C Heart Rate 84 Heart Rate [ 80 78 Brachial] Respiratory 19 16 18 Rate Blood Pressure 117/53 L 116/56 L [Right Brachial artery] O2 Saturation 93 94 10/02/21 10/02/21 10/02/21 15:54 16:05 20:28 Temperature 36.6 C 36.4 C L Heart Rate 80 Heart Rate [ 80 88 Brachial] Respiratory 20 16 24 Rate Blood Pressure 118/52 L 125/52 L [Right Brachial artery] O2 Saturation 92 94 10/02/21 10/03/21 10/03/21 23:53 05:42 05:57 Temperature 36.3 C L 36.5 C Heart Rate Heart Rate [ 78 75 Brachial] Respiratory 18 18 Rate Blood Pressure 125/58 L 114/46 L 109/72 [Right Brachial artery] O2 Saturation 93 94 10/03/21 07:28 Temperature 36.4 C L Heart Rate Heart Rate [ 70 Brachial] Respiratory 24 Rate Blood Pressure 96/59 L [Right Brachial artery] O2 Saturation 94 Oxygen O2 Source Nasal cannula Oxygen Flow Rate 2 I&O (Last 24 Hrs): Intake and Output Totals x24h 10/01/21 10/02/21 10/03/21 23:59 23:59 23:59 Intake Total 1505 1130 600 Output Total 1400 2000 200 Balance 105 -870 400 Comments/Notes: General: Alert, Oriented x3, No acute distress HEENT: PERRLA, EOMI Neck: Supple, No JVD Neuro: Alert, Non Focal, Oriented Times 3 Cardiovascular: Regular rate, Normal S1, Normal S2 Respiratory: Wheezes, Other (mild respiratory distress, mild crackles) Abdomen: Normal bowel sounds, Soft, No tenderness Extremities: No clubbing, Other (3+ lower extremity edema) Skin: No rashes, No breakdown, No significant lesion - Results Results: Laboratory Results WBC 5.2 x10^3/uL (4.8-10.8) 10/03/21 05:18 RBC 2.70 10^6/uL (4.20-5.40) L 10/03/21 05:18 Hgb 7.7 g/dL (12.0-16.0) L 10/03/21 05:18 Hct 26.6 % (37.0-47.0) L 10/03/21 05:18 MCV 98.5 fL (81.0-99.0) 10/03/21 05:18 MCH 28.5 pg (27.0-31.0) 10/03/21 05:18 MCHC 28.9 g/dL (32.0-36.0) L 10/03/21 05:18 RDW 16.2 % (12.0-15.0) H 10/03/21 05:18 Plt Count 214 10^3/uL (130-450) 10/03/21 05:18 MPV 10.3 fL (7.9-10.8) 10/03/21 05:18 Neut # (Auto) 3.9 10^3/uL (1.5-6.6) 10/03/21 05:18 Lymph # (Auto) 1.0 10^3/uL (1.5-3.5) L 10/03/21 05:18 [place] # (Auto) 0.3 10^3/uL (0.0-1.0) 10/03/21 05:18 Eos # (Auto) 0.0 10^3/uL (0.0-0.7) 10/03/21 05:18 Baso # (Auto) 0.0 10^3/uL (0.0-0.1) 10/03/21 05:18 Absolute Nucleated RBC 0.00 x10^3/uL 10/03/21 05:18 Nucleated RBC % 0.0 /100WBC 10/03/21 05:18 Manual Slide Review Indicated 10/01/21 05:23 WBC Morphology NORMAL APPEARANCE (NORMAL) 10/01/21 05:23 Platelet Estimate NORMAL (130-450,000) (NORMAL) 10/01/21 05:23 Platelet Morphology NORMAL APPEARANCE (NORMAL) 10/01/21 05:23 RBC Morph Micro Appear 2+ HYPOCHROMASIA (NORMAL) 10/01/21 05:23 VBG pH 7.371 (7.31-7.41) 09/29/21 16:32 VBG pCO2 59.0 mmHg (41-51) H 09/29/21 16:32 VBG pO2 40.8 mmHg (25-47) 09/29/21 16:32 VBG HCO3 33.4 mmol/L (23-28) H 09/29/21 16:32 VBG Total CO2 35.2 mmol/L (24-29) H 09/29/21 16:32 VBG O2 Saturation 81.7 % (60-80) H 09/29/21 16:32 VBG Base Excess 7.0 mmol/L (-2 - +2) H 09/29/21 16:32 Sodium 130 mmol/L (135-145) L 10/03/21 05:18 Potassium 3.8 mmol/L (3.5-5.0) 10/03/21 05:18 Chloride 89 mmol/L (101-111) L 10/03/21 05:18 Carbon Dioxide 32 mmol/L (21-32) 10/03/21 05:18 Anion Gap 9.0 (6-13) 10/03/21 05:18 BUN 47 mg/dL (6-20) H 10/03/21 05:18 Creatinine 1.6 mg/dL (0.4-1.0) H 10/03/21 05:18 Estimated GFR (MDRD) 32 (>89) L 10/03/21 05:18 Glucose 176 mg/dL (70-100) H 10/03/21 05:18 POC Whole Bld Glucose 156 mg/dL (70 - 100) H 10/03/21 07:33 Estimat Average Glucose 82 mg/dL (70-100) 09/29/21 16:32 Hemoglobin A1c % 4.5 % (4.27-6.07) 09/29/21 16:32 Calcium 7.8 mg/dL (8.5-10.3) L 10/03/21 05:18 Phosphorus 4.6 mg/dL (2.5-4.6) 10/02/21 05:11 Magnesium 2.3 mg/dL (1.7-2.8) 10/02/21 05:11 Iron 20 ug/dL (28-170) L 09/29/21 19:00 TIBC 393 ug/dL (250-450) 09/29/21 19:00 % Saturation 5 % (20-50) L 09/29/21 19:00 Transferrin 281 mg/dL (192-382) 09/29/21 19:00 Total Bilirubin 0.5 mg/dL (0.2-1.0) 09/29/21 16:32 AST 11 IU/L (10-42) 09/29/21 16:32 ALT 12 IU/L (10-60) 09/29/21 16:32 Alkaline Phosphatase 122 IU/L (42-121) H 09/29/21 16:32 B-Natriuretic Peptide 3376 pg/mL (5-100) H 10/03/21 05:18 Total Protein 6.7 g/dL (6.7-8.2) 09/29/21 16:32 Albumin 3.0 g/dL (3.2-5.5) L 09/29/21 16:32 Globulin 3.7 g/dL (2.1-4.2) 09/29/21 16:32 Albumin/Globulin Ratio 0.8 (1.0-2.2) L 09/29/21 16:32 Vitamin B12 1256 pg/mL (180-914) H 09/29/21 19:00 Folate 44.00 ng/mL (5.90 - >24.8) 09/29/21 19:00 Procalcitonin 0.34 ng/mL (<0.5) 09/29/21 16:32 TSH 4.62 uIU/mL (0.34-5.60) 09/29/21 19:00 Urine Color YELLOW 09/29/21 19:35 Urine Clarity HAZY (CLEAR) 09/29/21 19:35 Urine pH 5.5 PH (5.0-7.5) 09/29/21 19:35 Ur Specific [place] 1.020 (1.002-1.030) 09/29/21 19:35 Urine Protein NEGATIVE mg/dL (NEGATIVE) 09/29/21 19:35 Urine Glucose (UA) NEGATIVE mg/dL (NEGATIVE) 09/29/21 19:35 Urine Ketones NEGATIVE mg/dL (NEGATIVE) 09/29/21 19:35 Urine Occult Blood NEGATIVE (NEGATIVE) 09/29/21 19:35 Urine Nitrite POSITIVE (NEGATIVE) H 09/29/21 19:35 Urine Bilirubin NEGATIVE (NEGATIVE) 09/29/21 19:35 Urine Urobilinogen 0.2 (NORMAL) E.U./dL (NORMAL) 09/29/21 19:35 Ur Leukocyte Esterase SMALL (NEGATIVE) H 09/29/21 19:35 Urine RBC 0-5 /HPF (0-5) 09/29/21 19:35 Urine WBC 6-10 /HPF (0-5) H 09/29/21 19:35 Ur Squamous Epith Cells MANY Squamous (<= Few) H 09/29/21 19:35 Urine Bacteria Many /HPF (None Seen) H 09/29/21 19:35 Ur Microscopic Review INDICATED 09/29/21 19:35 Urine Culture Comments NOT INDICATED 09/29/21 19:35 Nasal Adenovirus (PCR) NOT DETECTED 09/29/21 17:25 Nasal B. parapertussis DNA (PCR) NOT DETECTED 09/29/21 17:25 Nasal Coronavir 229E PCR NOT DETECTED 09/29/21 17:25 Nasal Coronavir HKU1 PCR NOT DETECTED 09/29/21 17:25 Nasal Coronavir NL63 PCR NOT DETECTED 09/29/21 17:25 Nasal Coronavir OC43 PCR NOT DETECTED 09/29/21 17:25 Nasal Enterovir/Rhinovir PCR NOT DETECTED 09/29/21 17:25 Nasal Influenza B PCR NOT DETECTED 09/29/21 17:25 Nasal Influenza A PCR NOT DETECTED 09/29/21 17:25 Nasal Parainfluen 1 PCR NOT DETECTED 09/29/21 17:25 Nasal Parainfluen 2 PCR NOT DETECTED 09/29/21 17:25 Nasal Parainfluen 3 PCR NOT DETECTED 09/29/21 17:25 Nasal Parainfluen 4 PCR NOT DETECTED 09/29/21 17:25 Nasal RSV (PCR) NOT DETECTED 09/29/21 17:25 Nasal B.pertussis DNA PCR NOT DETECTED 09/29/21 17:25 Nasal C.pneumoniae (PCR) NOT DETECTED 09/29/21 17:25 [place] Human Metapneumo PCR NOT DETECTED 09/29/21 17:25 Nasal M.pneumoniae (PCR) NOT DETECTED 09/29/21 17:25 Nasal SARS-CoV-2 (PCR) NOT DETECTED 09/29/21 17:25 Blood Type A POSITIVE 09/29/21 19:00 Antibody Screen NEGATIVE 09/29/21 19:00 Crossmatch IS Only See Detail 09/29/21 19:00 - Procedures Procedures: Procedures EXCISION OF DESCENDING COLON, ENDO (10/18/20) EXCISION OF DESCENDING COLON, ENDO, DIAGN (10/18/20) EXCISION OF RECTUM, ENDO, DIAGN (10/18/20) EXCISION OF STOMACH, ENDO, DIAGN (10/18/20) EXCISION OF TRANSVERSE COLON, ENDO (10/18/20) EXCISION OF TRANSVERSE COLON, ENDO, DIAGN (10/18/20) INSERTION OF INFUSION DEV INTO SUP VENA CAVA, PERC APPROACH (06/18/15) ABX Reporting Has patient been on IV antibiotics over the past 48 hours?: No
[2021-10-03] MEDS: FERROUS GLUCONATE 324 MG TABLET PO SCH (11:55)
[2021-10-03] MEDS: HYDROcod/ACETAM 5/325 MG TABLET PO PRN ×2 (13:41→21:33)
[2021-10-03] MEDS ORDERED: BISACODYL 10 MG SUPP PR ONE (15:31)
[2021-10-03 16:55] LABS: FECAL OCCULT BLOOD (FIT) POSITIVE (NEGATIVE)
[2021-10-03] MEDS: ATORVASTATIN 40 MG TABLET PO SCH (21:21)
[2021-10-04 05:19] LABS: BASOPHILS % (AUTO) 0.2 %; EOSINOPHILS % (AUTO) 0.2 %; HCT - HEMATOCRIT 28.1 % (37.0-47.0); HGB - HEMOGLOBIN 7.8 g/dL (12.0-16.0); LYMPHOCYTES # (AUTO) 1.3 10^3/uL (1.5-3.5); LYMPHOCYTES % (AUTO) 25.2 %; MEAN CORPUSCULAR HEMOGLOBIN 27.3 pg (27.0-31.0); MEAN CORPUSCULAR HGB CONC 27.8 g/dL (32.0-36.0); MEAN CORPUSCULAR VOLUME 98.3 fL (81.0-99.0); MONOCYTES # (AUTO) 0.5 10^3/uL (0.0-1.0); MONOCYTES % (AUTO) 9.6 %; NEUTROPHILS # (AUTO) 3.3 10^3/uL (1.5-6.6); NEUTROPHILS % (AUTO) 64.4 %; PLT - PLATELET COUNT 226 10^3/uL (130-450); RED BLOOD COUNT 2.86 10^6/uL (4.20-5.40); WHITE BLOOD COUNT 5.1 x10^3/uL (4.8-10.8)
[2021-10-04 05:32] LABS: CALCIUM 8.1 mg/dL (8.5-10.3); CREATININE 1.4 mg/dL (0.4-1.0); POTASSIUM 3.4 mmol/L (3.5-5.0)
[2021-10-04] MEDS: SENNA 8.6 MG TABLET PO SCH ×3 (06:08→10:36)
[2021-10-04] MEDS: HYDROcod/ACETAM 5/325 MG TABLET PO PRN ×3 (06:28→16:54)
[2021-10-04] MEDS: metOLazone 2.5 MG TABLET PO SCH ×2 (06:28→13:29)
[2021-10-04] MEDS: LEVOTHYROXINE 75 MCG TABLET PO SCH (06:29)
[2021-10-04] MEDS: PANTOPRAZOLE 40 MG TABLET PO SCH (06:29)
[2021-10-04] MEDS: FUROSEMIDE 20 MG/2 ML VIAL IVP SCH (07:19)
[2021-10-04] MEDS: SODIUM CHLORIDE FLUSH 0.9% 10 ML SYRINGE IVP SCH ×3 (07:20→16:54)
--- NOTE | 2021-10-04 07:35 | PROVIDER PROGRESS NOTE ---
Assessment/Plan - Problem List (1) Acute respiratory failure with hypoxia and hypercapnia Assessment/Plan: Improving. On 2 L of oxygen via nasal cannula with oxygen saturation at 92-95%. On DuoNeb, budesonide. Also receiving Lasix. (2) COPD exacerbation Assessment/Plan: Improving. 2 L of oxygen via nasal cannula. Budesonide 0.5 mg inhalation twice daily. DuoNeb every 4 hours as needed. DuoNeb every 4 hours scheduled. Solu-Medrol discontinued 10/03/21 Prednisone 20mg po daily ordered Azithromycin and cefuroxime discontinued 10/01/21 (3) Acute on chronic diastolic heart failure Assessment/Plan: BNP 2525. Patient has 3+ lower extremity edema. Lasix 80 mg IV bid. Metolazone 2.5 mg p.o. twice daily. Metoprolol succinate 25 mg p.o. daily (4) Anasarca Assessment/Plan: Improving. Likely 2/2 CHF exacerbation Lasix 80 mg IV bid. Albumin 12.5gX1 given Metolazone 2.5 mg p.o. twice daily. 1200 total fluid restriction (5) Depression Assessment/Plan: On Lexapro 20 mg p.o. daily. (6) Diet-controlled type 2 diabetes mellitus Assessment/Plan: Sliding scale insulin. Accu-Cheks q. ACH S. (7) Hypothyroidism Assessment/Plan: Synthroid 75 mcg p.o. daily AC. (8) Peripheral neuropathy Assessment/Plan: Gabapentin 600 mg p.o. twice daily. (9) Tobacco abuse Assessment/Plan: Nicotine patch ordered. (10) Lung cancer Assessment/Plan: She is currently on Lumakrass which is a KRAS inhibitor that she currently takes for her lung CA and has seen oncology service on 09/02 for ongoing treatments. Patient continues to smoke despite education and counseling and her non-small cell lung CA with metastatic spread diagnoses. Patient was seen by Harini Cuadra with palliative care today. (11) Anemia Assessment/Plan: Hemoglobin was 7.8 this morning. - Current Meds Current Meds: Current Medications Generic Name Dose Route Start Last Admin Trade Name Freq PRN Reason Stop Dose Admin Acetaminophen 650 mg 09/29/21 17:46 09/29/21 22:50 Acetaminophen 325 Mg Tablet PO 650 mg Q4HR PRN Administration Pain 1 to 4, or Fever Hydrocodone Bitart/Acetaminophen 1 - 2 tab 09/29/21 17:42 10/04/21 06:28 Hydrocod/Acetam 5/325 Mg Tablet PO 1 tab TID PRN Administration PAIN Albuterol/Ipratropium 3 ml 09/29/21 19:00 10/03/21 19:40 Ipratropium/Albuterol 3 Ml Neb INH 3 ml RTQ4H ARIC Administration Aspirin 81 mg 09/30/21 09:00 10/03/21 09:00 Aspirin Chew 81 Mg Tablet PO 81 mg DAILY ARIC Administration Atorvastatin Calcium 40 mg 09/29/21 21:00 10/03/21 21:21 Atorvastatin 40 Mg Tablet PO 40 mg QPM ARIC Administration Budesonide 0.5 mg 09/30/21 19:00 10/03/21 19:40 Budesonide 0.5 Mg/2 Ml Neb INH 0.5 mg RTBID ARIC Administration Calcium Carbonate/Glycine 500 mg 09/29/21 20:00 10/03/21 21:22 Calcium Carbonate Chew 500 Mg Tablet PO 500 mg 08,1999 ARIC Administration Docusate Sodium 250 - 500 mg 10/03/21 09:00 10/03/21 08:09 Docusate Sodium 250 Mg Capsule PO 250 mg DAILY ARIC Administration Enoxaparin Sodium 40 mg 09/30/21 09:00 10/03/21 08:11 Enoxaparin 40 Mg/0.4 Ml Syringe SUBQ 40 mg DAILY ARIC Administration Escitalopram Oxalate 20 mg 09/30/21 09:00 10/03/21 08:08 Escitalopram 10 Mg Tablet PO 20 mg DAILY ARIC Administration Ferrous Gluconate 324 mg 09/30/21 12:00 10/03/21 11:55 Ferrous Gluconate 324 Mg Tablet PO 324 mg QDLUNCH ARIC Administration Folic Acid 1 mg 09/30/21 09:00 10/03/21 08:11 Folic Acid 1 Mg Tablet PO 1 mg DAILY ARIC Administration Furosemide 80 mg 10/03/21 14:00 10/04/21 07:19 Furosemide 20 Mg/2 Ml Vial IVP 80 mg BIDDIURETIC ARIC Administration Gabapentin 600 mg 09/29/21 21:00 10/03/21 21:22 Gabapentin 300 Mg Capsule PO 600 mg BID ARIC Administration Guaifenesin 1,200 mg 09/29/21 21:00 10/03/21 21:21 Guaifenesin 600 Mg Tablet PO 1,200 mg BID ARIC Administration Insulin Aspart 1 - 5 unit 09/29/21 21:00 10/03/21 21:20 Insulin Aspart 300 Unit/3 Ml Pen SUBQ 1 unit 0800,1200,1700,2100 ARIC Administration Protocol Levothyroxine Sodium 75 mcg 09/30/21 07:00 10/04/21 06:29 Levothyroxine 75 Mcg Tablet PO 75 mcg QDAC ARIC Administration Metolazone 2.5 mg 10/01/21 05:30 10/04/21 06:28 Metolazone 2.5 Mg Tablet PO 2.5 mg 0530,1330 ARIC Administration Metoprolol Succinate 25 mg 09/30/21 09:00 10/03/21 10:25 Metoprolol Succinate 25 Mg Tablet PO Not Given DAILY ARIC Morphine Sulfate 2 mg 09/29/21 17:46 09/30/21 22:27 Morphine 2 Mg/Ml Carpuject IVP 2 mg Q2HR PRN Administration Pain 8 to 10 Nicotine 1 patch 09/30/21 12:00 10/03/21 08:10 Nicotine 14 Mg Patch TOP 1 patch DAILY ARIC Administration Pantoprazole Sodium 40 mg 10/04/21 07:00 10/04/21 06:29 Pantoprazole 40 Mg Tablet PO 40 mg QDAC ARIC Administration Sotorasib [ 8 each 09/30/21 09:00 10/03/21 08:10 Lumakras] 120 Mg PO 8 each Tablet DAILY ARIC Administration Polyethylene Glycol 17 gm 09/29/21 17:46 10/03/21 08:11 Polyethylene Glycol 3350 17 Gm Packet PO 17 gm DAILY PRN Administration Constipation Senna 8.6 - 17.2 mg 10/03/21 09:00 10/03/21 08:08 Senna 8.6 Mg Tablet PO 8.6 mg DAILY ARIC Administration Senna 17.2 - 25.8 mg 10/03/21 15:00 10/04/21 06:08 Senna 8.6 Mg Tablet PO 10/04/21 09:01 Not Given Q6H ARIC Sodium Chloride 10 ml 09/30/21 01:00 10/04/21 07:20 Sodium Chloride Flush 0.9% 10 Ml Syringe IVP 20 ml 0100,0900,1700 ARIC Administration Triamcinolone Acetonide 1 applic 09/29/21 21:00 10/03/21 20:49 Triamcinolone 0.1% Oint 15 Gm Tube TOP Not Given BID ARIC - Lab Result Fish Bone Diagrams: 10/04/21 04:52 10/04/21 04:52 - Additional Planning My Orders: My Active Orders 10/03/21 14:00 FUROSEMIDE INJ 20mg VIAL [LASIX INJ 20mg VIAL] 80 mg IVP BIDDIURETIC 10/03/21 Dinner Carb-controlled Diet [DIET] 10/04/21 07:00 Pantoprazole [Protonix] 40 mg PO QDAC 10/04/21 09:00 predniSONE [Deltasone] 20 mg PO DAILY Subjective - Subjective Patient Reports: Other (Patient's respiratory status is significantly improved today. She had significant diuresis today. However she complains about half fluid restriction of 1200 mls a day.) Objective Vital Signs: Vital Signs - 24 hr 10/03/21 10/03/21 10/03/21 11:18 11:32 14:58 Temperature 36.5 C Heart Rate 75 70 Heart Rate [ Brachial] Heart Rate [ 72 Monitoring electrodes] Respiratory 14 18 14 Rate Blood Pressure 124/60 [Right Brachial artery] O2 Saturation 92 10/03/21 10/03/21 10/03/21 15:49 19:40 20:16 Temperature 37.0 C 36.3 C L Heart Rate 72 Heart Rate [ 79 74 Brachial] Heart Rate [ Monitoring electrodes] Respiratory 20 18 23 Rate Blood Pressure 114/59 L 121/53 L [Right Brachial artery] O2 Saturation 92 97 10/04/21 10/04/21 10/04/21 00:01 04:58 07:20 Temperature 36.3 C L 36.5 C Heart Rate Heart Rate [ 73 78 Brachial] Heart Rate [ Monitoring electrodes] Respiratory 22 20 Rate Blood Pressure 113/52 L 120/88 H 124/94 H [Right Brachial artery] O2 Saturation 94 94 Oxygen O2 Source Nasal cannula Oxygen Flow Rate 2 I&O (Last 24 Hrs): Intake and Output Totals x24h 10/02/21 10/03/21 10/04/21 23:59 23:59 23:59 Intake Total 1130 1480 200 Output Total 1999 3100 300 Balance -870 -1620 -100 General: Alert, Oriented x3, No acute distress HEENT: PERRLA, EOMI Neck: Supple, No JVD Neuro: Alert, Non Focal, Oriented Times 3 Cardiovascular: Regular rate Respiratory: Chest non-tender, No respiratory distress, Other (coarse breath sounds) Abdomen: Normal bowel sounds, Soft, No tenderness, No masses Extremities: No clubbing, No edema Skin: No rashes, No breakdown - Results Results: Laboratory Results WBC 5.1 x10^3/uL (4.8-10.8) 10/04/21 04:52 RBC 2.86 10^6/uL (4.20-5.40) L 10/04/21 04:52 Hgb 7.8 g/dL (12.0-16.0) L 10/04/21 04:52 Hct 28.1 % (37.0-47.0) L 10/04/21 04:52 MCV 98.3 fL (81.0-99.0) 10/04/21 04:52 MCH 27.3 pg (27.0-31.0) 10/04/21 04:52 MCHC 27.8 g/dL (32.0-36.0) L 10/04/21 04:52 RDW 16.0 % (12.0-15.0) H 10/04/21 04:52 Plt Count 226 10^3/uL (130-450) 10/04/21 04:52 MPV 10.0 fL (7.9-10.8) 10/04/21 04:52 Neut # (Auto) 3.3 10^3/uL (1.5-6.6) 10/04/21 04:52 Lymph # (Auto) 1.3 10^3/uL (1.5-3.5) L 10/04/21 04:52 [place] # (Auto) 0.5 10^3/uL (0.0-1.0) 10/04/21 04:52 Eos # (Auto) 0.0 10^3/uL (0.0-0.7) 10/04/21 04:52 Baso # (Auto) 0.0 10^3/uL (0.0-0.1) 10/04/21 04:52 Absolute Nucleated RBC 0.00 x10^3/uL 10/04/21 04:52 Nucleated RBC % 0.0 /100WBC 10/04/21 04:52 Manual Slide Review Indicated 10/01/21 05:23 WBC Morphology NORMAL APPEARANCE (NORMAL) 10/01/21 05:23 Platelet Estimate NORMAL (130-450,000) (NORMAL) 10/01/21 05:23 Platelet Morphology NORMAL APPEARANCE (NORMAL) 10/01/21 05:23 RBC Morph Micro Appear 2+ HYPOCHROMASIA (NORMAL) 10/01/21 05:23 VBG pH 7.371 (7.31-7.41) 09/29/21 16:32 VBG pCO2 59.0 mmHg (41-51) H 09/29/21 16:32 VBG pO2 40.8 mmHg (25-47) 09/29/21 16:32 VBG HCO3 33.4 mmol/L (23-28) H 09/29/21 16:32 VBG Total CO2 35.2 mmol/L (24-29) H 09/29/21 16:32 VBG O2 Saturation 81.7 % (60-80) H 09/29/21 16:32 VBG Base Excess 7.0 mmol/L (-2 - +2) H 09/29/21 16:32 Sodium 133 mmol/L (135-145) L 10/04/21 04:52 Potassium 3.4 mmol/L (3.5-5.0) L 10/04/21 04:52 Chloride 87 mmol/L (101-111) L 10/04/21 04:52 Carbon Dioxide 36 mmol/L (21-32) H 10/04/21 04:52 Anion Gap 10.0 (6-13) 10/04/21 04:52 BUN 44 mg/dL (6-20) H 10/04/21 04:52 Creatinine 1.4 mg/dL (0.4-1.0) H 10/04/21 04:52 Estimated GFR (MDRD) 37 (>89) L 10/04/21 04:52 Glucose 125 mg/dL (70-100) H 10/04/21 04:52 POC Whole Bld Glucose 153 mg/dL (70 - 100) H 10/03/21 20:10 Estimat Average Glucose 82 mg/dL (70-100) 09/29/21 16:32 Hemoglobin A1c % 4.5 % (4.27-6.07) 09/29/21 16:32 Calcium 8.1 mg/dL (8.5-10.3) L 10/04/21 04:52 Phosphorus 4.6 mg/dL (2.5-4.6) 10/02/21 05:11 Magnesium 2.3 mg/dL (1.7-2.8) 10/02/21 05:11 Iron 20 ug/dL (28-170) L 09/29/21 19:00 TIBC 393 ug/dL (250-450) 09/29/21 19:00 % Saturation 5 % (20-50) L 09/29/21 19:00 Transferrin 281 mg/dL (192-382) 09/29/21 19:00 Total Bilirubin 0.5 mg/dL (0.2-1.0) 09/29/21 16:32 AST 11 IU/L (10-42) 09/29/21 16:32 ALT 12 IU/L (10-60) 09/29/21 16:32 Alkaline Phosphatase 122 IU/L (42-121) H 09/29/21 16:32 B-Natriuretic Peptide 2525 pg/mL (5-100) H 10/04/21 04:52 Total Protein 6.7 g/dL (6.7-8.2) 09/29/21 16:32 Albumin 3.0 g/dL (3.2-5.5) L 09/29/21 16:32 Globulin 3.7 g/dL (2.1-4.2) 09/29/21 16:32 Albumin/Globulin Ratio 0.8 (1.0-2.2) L 09/29/21 16:32 Vitamin B12 1256 pg/mL (180-914) H 09/29/21 19:00 Folate 44.00 ng/mL (5.90 - >24.8) 09/29/21 19:00 Procalcitonin 0.34 ng/mL (<0.5) 09/29/21 16:32 TSH 4.62 uIU/mL (0.34-5.60) 09/29/21 19:00 Urine Color YELLOW 09/29/21 19:35 Urine Clarity HAZY (CLEAR) 09/29/21 19:35 Urine pH 5.5 PH (5.0-7.5) 09/29/21 19:35 Ur Specific [place] 1.020 (1.002-1.030) 09/29/21 19:35 Urine Protein NEGATIVE mg/dL (NEGATIVE) 09/29/21 19:35 Urine Glucose (UA) NEGATIVE mg/dL (NEGATIVE) 09/29/21 19:35 Urine Ketones NEGATIVE mg/dL (NEGATIVE) 09/29/21 19:35 Urine Occult Blood NEGATIVE (NEGATIVE) 09/29/21 19:35 Urine Nitrite POSITIVE (NEGATIVE) H 09/29/21 19:35 Urine Bilirubin NEGATIVE (NEGATIVE) 09/29/21 19:35 Urine Urobilinogen 0.2 (NORMAL) E.U./dL (NORMAL) 09/29/21 19:35 Ur Leukocyte Esterase SMALL (NEGATIVE) H 09/29/21 19:35 Urine RBC 0-5 /HPF (0-5) 09/29/21 19:35 Urine WBC 6-10 /HPF (0-5) H 09/29/21 19:35 Ur Squamous Epith Cells MANY Squamous (<= Few) H 09/29/21 19:35 Urine Bacteria Many /HPF (None Seen) H 09/29/21 19:35 Ur Microscopic Review INDICATED 09/29/21 19:35 Urine Culture Comments NOT INDICATED 09/29/21 19:35 Nasal Adenovirus (PCR) NOT DETECTED 09/29/21 17:25 Nasal B. parapertussis DNA (PCR) NOT DETECTED 09/29/21 17:25 Nasal Coronavir 229E PCR NOT DETECTED 09/29/21 17:25 Nasal Coronavir HKU1 PCR NOT DETECTED 09/29/21 17:25 Nasal Coronavir NL63 PCR NOT DETECTED 09/29/21 17:25 Nasal Coronavir OC43 PCR NOT DETECTED 09/29/21 17:25 Nasal Enterovir/Rhinovir PCR NOT DETECTED 09/29/21 17:25 Nasal Influenza B PCR NOT DETECTED 09/29/21 17:25 Nasal Influenza A PCR NOT DETECTED 09/29/21 17:25 Nasal Parainfluen 1 PCR NOT DETECTED 09/29/21 17:25 Nasal Parainfluen 2 PCR NOT DETECTED 09/29/21 17:25 Nasal Parainfluen 3 PCR NOT DETECTED 09/29/21 17:25 Nasal Parainfluen 4 PCR NOT DETECTED 09/29/21 17:25 Nasal RSV (PCR) NOT DETECTED 09/29/21 17:25 Nasal B.pertussis DNA PCR NOT DETECTED 09/29/21 17:25 Nasal C.pneumoniae (PCR) NOT DETECTED 09/29/21 17:25 [place] Human Metapneumo PCR NOT DETECTED 09/29/21 17:25 Nasal M.pneumoniae (PCR) NOT DETECTED 09/29/21 17:25 Nasal SARS-CoV-2 (PCR) NOT DETECTED 09/29/21 17:25 Stl Occult Blood (IFOB) POSITIVE (NEGATIVE) A 10/03/21 16:20 Blood Type A POSITIVE 09/29/21 19:00 Antibody Screen NEGATIVE 09/29/21 19:00 Crossmatch IS Only See Detail 09/29/21 19:00 - Procedures Procedures: Procedures EXCISION OF DESCENDING COLON, ENDO (10/18/20) EXCISION OF DESCENDING COLON, ENDO, DIAGN (10/18/20) EXCISION OF RECTUM, ENDO, DIAGN (10/18/20) EXCISION OF STOMACH, ENDO, DIAGN (10/18/20) EXCISION OF TRANSVERSE COLON, ENDO (10/18/20) EXCISION OF TRANSVERSE COLON, ENDO, DIAGN (10/18/20) INSERTION OF INFUSION DEV INTO SUP VENA CAVA, PERC APPROACH (06/18/15) ABX Reporting Has patient been on IV antibiotics over the past 48 hours?: No
[2021-10-04] MEDS: INSULIN ASPART 300 UNIT/3 ML PEN SUBQ SCH ×4 (07:42→21:02)
[2021-10-04] MEDS: CALCIUM CARBONATE CHEW 500 MG TABLET PO SCH ×2 (07:42→20:39)
[2021-10-04] MEDS: IPRATROPIUM/ALBUTEROL 3 ML NEB INH SCH ×4 (07:45→19:32)
[2021-10-04] MEDS: BUDESONIDE 0.5 MG/2 ML NEB INH SCH ×2 (07:45→19:32)
[2021-10-04] MEDS: DOCUSATE SODIUM 250 MG CAPSULE PO SCH (08:06)
[2021-10-04] MEDS: GABAPENTIN 300 MG CAPSULE PO SCH ×2 (08:07→21:02)
[2021-10-04] MEDS: guaiFENesin 600 MG TABLET PO SCH ×2 (08:07→21:02)
[2021-10-04] MEDS: ASPIRIN CHEW 81 MG TABLET PO SCH (08:07)
[2021-10-04] MEDS: ENOXAPARIN 40 MG/0.4 ML SYRINGE SUBQ SCH (08:08)
[2021-10-04] MEDS: FOLIC ACID 1 MG TABLET PO SCH (08:08)
[2021-10-04] MEDS: ESCITALOPRAM 10 MG TABLET PO SCH (08:11)
[2021-10-04] MEDS: NICOTINE 14 MG PATCH TOP SCH (08:14)
[2021-10-04] MEDS: METOPROLOL SUCCINATE 25 MG TABLET PO SCH (08:14)
[2021-10-04] MEDS: SOTORASIB 120 MG PO SCH (08:14)
[2021-10-04] MEDS: predniSONE 20 MG TABLET PO SCH (08:56)
[2021-10-04] MEDS: TRIAMCINOLONE 0.1% OINT 15 GM TUBE TOP SCH ×2 (08:56→21:02)
[2021-10-04] MEDS: FERROUS GLUCONATE 324 MG TABLET PO SCH (11:38)
[2021-10-04] MEDS: FUROSEMIDE 40 MG/4 ML VIAL IVP SCH (13:53)
[2021-10-04] MEDS: ATORVASTATIN 40 MG TABLET PO SCH (21:02)
[2021-10-05] MEDS: SODIUM CHLORIDE FLUSH 0.9% 10 ML SYRINGE IVP SCH ×4 (00:23→20:37)
[2021-10-05 05:17] LABS: BASOPHILS % (AUTO) 0.2 %; EOSINOPHILS % (AUTO) 0.2 %; HCT - HEMATOCRIT 27.3 % (37.0-47.0); HGB - HEMOGLOBIN 7.6 g/dL (12.0-16.0); LYMPHOCYTES # (AUTO) 1.4 10^3/uL (1.5-3.5); LYMPHOCYTES % (AUTO) 30.2 %; MEAN CORPUSCULAR HEMOGLOBIN 27.2 pg (27.0-31.0); MEAN CORPUSCULAR HGB CONC 27.8 g/dL (32.0-36.0); MEAN CORPUSCULAR VOLUME 97.8 fL (81.0-99.0); MEAN PLATELET VOLUME 9.4 fL (7.9-10.8); MONOCYTES # (AUTO) 0.4 10^3/uL (0.0-1.0); MONOCYTES % (AUTO) 8.8 %; NEUTROPHILS # (AUTO) 2.8 10^3/uL (1.5-6.6); NEUTROPHILS % (AUTO) 60.2 %; PLT - PLATELET COUNT 214 10^3/uL (130-450); RED BLOOD COUNT 2.79 10^6/uL (4.20-5.40); RED CELL DISTRIBUTION WIDTH 15.9 % (12.0-15.0); WHITE BLOOD COUNT 4.7 x10^3/uL (4.8-10.8)
[2021-10-05] MEDS: metOLazone 2.5 MG TABLET PO SCH ×2 (05:24→13:48)
[2021-10-05 05:28] LABS: CREATININE 1.2 mg/dL (0.4-1.0); POTASSIUM 3.4 mmol/L (3.5-5.0)
[2021-10-05] MEDS: HYDROcod/ACETAM 5/325 MG TABLET PO PRN (05:58)
[2021-10-05] MEDS: FUROSEMIDE 40 MG/4 ML VIAL IVP SCH ×2 (06:00→14:37)
[2021-10-05] MEDS: LEVOTHYROXINE 75 MCG TABLET PO SCH (06:00)
[2021-10-05] MEDS: PANTOPRAZOLE 40 MG TABLET PO SCH (06:01)
[2021-10-05] MEDS ORDERED: POTASSIUM CHLORIDE 20 MEQ TABLET PO ONE (07:23)
--- NOTE | 2021-10-05 07:25 | PROVIDER PROGRESS NOTE ---
Assessment/Plan - Problem List (1) Acute respiratory failure with hypoxia and hypercapnia Assessment/Plan: Improving. On 2 L of oxygen via nasal cannula with oxygen saturation at 92-95%. On DuoNeb, budesonide. Also receiving Lasix. Anticipate discharge home on 10/06/21 (2) COPD exacerbation Assessment/Plan: Improving. 2 L of oxygen via nasal cannula. Budesonide 0.5 mg inhalation twice daily. DuoNeb every 4 hours as needed. DuoNeb every 4 hours scheduled. Solu-Medrol discontinued 10/03/21 Prednisone 20mg po daily ordered Azithromycin and cefuroxime discontinued 10/01/21 (3) Acute on chronic diastolic heart failure Assessment/Plan: BNP 1753. Patient has 2+ lower extremity edema. Lasix 80 mg IV bid. Metolazone 2.5 mg p.o. twice daily. Metoprolol succinate 25 mg p.o. daily (4) Anasarca Assessment/Plan: Improving. Likely 2/2 CHF exacerbation Lasix 80 mg IV bid. Albumin 12.5gX1 given Metolazone 2.5 mg p.o. twice daily. 1200 total fluid restriction (5) Depression Assessment/Plan: On Lexapro 20 mg p.o. daily. (6) Diet-controlled type 2 diabetes mellitus Assessment/Plan: Sliding scale insulin. Accu-Cheks q. ACH S. (7) Hypothyroidism Assessment/Plan: Synthroid 75 mcg p.o. daily AC. (8) Peripheral neuropathy Assessment/Plan: Gabapentin 600 mg p.o. twice daily. (9) Tobacco abuse Assessment/Plan: Nicotine patch ordered. (10) Lung cancer Assessment/Plan: She is currently on Lumakrass which is a KRAS inhibitor that she currently takes for her lung CA and has seen oncology service on 09/02 for ongoing treatments. Patient continues to smoke despite education and counseling and her non-small cell lung CA with metastatic spread diagnoses. Patient was seen by Harini Cuadra with palliative care today. (11) Anemia Assessment/Plan: Hemoglobin was 7.8 this morning. - Current Meds Current Meds: Current Medications Generic Name Dose Route Start Last Admin Trade Name Freq PRN Reason Stop Dose Admin Acetaminophen 650 mg 09/29/21 17:46 09/29/21 22:50 Acetaminophen 325 Mg Tablet PO 650 mg Q4HR PRN Administration Pain 1 to 4, or Fever Hydrocodone Bitart/Acetaminophen 1 - 2 tab 09/29/21 17:42 10/05/21 05:58 Hydrocod/Acetam 5/325 Mg Tablet PO 2 tab TID PRN Administration PAIN Albuterol/Ipratropium 3 ml 09/29/21 19:00 10/04/21 19:32 Ipratropium/Albuterol 3 Ml Neb INH 3 ml RTQ4H ARIC Administration Aspirin 81 mg 09/30/21 09:00 10/04/21 08:07 Aspirin Chew 81 Mg Tablet PO 81 mg DAILY ARIC Administration Atorvastatin Calcium 40 mg 09/29/21 21:00 10/04/21 21:02 Atorvastatin 40 Mg Tablet PO 40 mg QPM ARIC Administration Budesonide 0.5 mg 09/30/21 19:00 10/04/21 19:32 Budesonide 0.5 Mg/2 Ml Neb INH 0.5 mg RTBID ARIC Administration Calcium Carbonate/Glycine 500 mg 09/29/21 20:00 10/04/21 20:39 Calcium Carbonate Chew 500 Mg Tablet PO 500 mg ARIC Administration Docusate Sodium 250 - 500 mg 10/03/21 09:00 10/04/21 08:06 Docusate Sodium 250 Mg Capsule PO 250 mg DAILY ARIC Administration Enoxaparin Sodium 40 mg 09/30/21 09:00 10/04/21 08:08 Enoxaparin 40 Mg/0.4 Ml Syringe SUBQ 40 mg DAILY ARIC Administration Escitalopram Oxalate 20 mg 09/30/21 09:00 10/04/21 08:11 Escitalopram 10 Mg Tablet PO 20 mg DAILY ARIC Administration Ferrous Gluconate 324 mg 09/30/21 12:00 10/04/21 11:38 Ferrous Gluconate 324 Mg Tablet PO 324 mg QDLUNCH ARIC Administration Folic Acid 1 mg 09/30/21 09:00 10/04/21 08:08 Folic Acid 1 Mg Tablet PO 1 mg DAILY ARIC Administration Furosemide 80 mg 10/04/21 14:00 10/05/21 06:00 Furosemide 40 Mg/4 Ml Vial IVP 80 mg BIDDIURETIC ARIC Administration Gabapentin 600 mg 09/29/21 21:00 10/04/21 21:02 Gabapentin 300 Mg Capsule PO 600 mg BID ARIC Administration Guaifenesin 1,200 mg 09/29/21 21:00 10/04/21 21:02 Guaifenesin 600 Mg Tablet PO 1,200 mg BID ARIC Administration Insulin Aspart 1 - 5 unit 09/29/21 21:00 10/04/21 21:02 Insulin Aspart 300 Unit/3 Ml Pen SUBQ 3 unit 0800,1200,1700,2100 ARIC Administration Protocol Levothyroxine Sodium 75 mcg 09/30/21 07:00 10/05/21 06:00 Levothyroxine 75 Mcg Tablet PO 75 mcg QDAC ARIC Administration Metolazone 2.5 mg 10/01/21 05:30 10/05/21 05:24 Metolazone 2.5 Mg Tablet PO 2.5 mg 0530,1330 ARIC Administration Metoprolol Succinate 25 mg 09/30/21 09:00 10/04/21 08:14 Metoprolol Succinate 25 Mg Tablet PO 25 mg DAILY ARIC Administration Morphine Sulfate 2 mg 09/29/21 17:46 09/30/21 22:27 Morphine 2 Mg/Ml Carpuject IVP 2 mg Q2HR PRN Administration Pain 8 to 10 Nicotine 1 patch 09/30/21 12:00 10/04/21 08:14 Nicotine 14 Mg Patch TOP 1 patch DAILY ARIC Administration Pantoprazole Sodium 40 mg 10/04/21 07:00 10/05/21 06:01 Pantoprazole 40 Mg Tablet PO 40 mg QDAC ARIC Administration Sotorasib [ 8 each 09/30/21 09:00 10/04/21 08:14 Lumakras] 120 Mg PO 8 each Tablet DAILY ARIC Administration Polyethylene Glycol 17 gm 09/29/21 17:46 10/03/21 08:11 Polyethylene Glycol 3350 17 Gm Packet PO 17 gm DAILY PRN Administration Constipation Prednisone 20 mg 10/04/21 09:00 10/04/21 08:56 Prednisone 20 Mg Tablet PO 20 mg DAILY ARIC Administration Senna 8.6 - 17.2 mg 10/03/21 09:00 10/04/21 08:07 Senna 8.6 Mg Tablet PO 8.6 mg DAILY ARIC Administration Sodium Chloride 10 ml 09/30/21 01:00 10/05/21 00:23 Sodium Chloride Flush 0.9% 10 Ml Syringe IVP 10 ml 0100,0900,1700 ARIC Administration Triamcinolone Acetonide 1 applic 09/29/21 21:00 10/04/21 21:02 Triamcinolone 0.1% Oint 15 Gm Tube TOP 1 applic BID ARIC Administration - Lab Result Fish Bone Diagrams: 10/05/21 05:08 10/05/21 05:08 - Additional Planning My Orders: My Active Orders 10/04/21 07:00 Pantoprazole [Protonix] 40 mg PO QDAC 10/04/21 09:00 predniSONE [Deltasone] 20 mg PO DAILY 10/04/21 14:00 FUROSEMIDE INJ 40mg VIAL [LASIX INJ 40 mg VIAL] 80 mg IVP BIDDIURETIC 10/05/21 07:23 Potassium Chloride [K-Dur] 40 meq PO ONCE ONE 10/06/21 05:00 BMP - BASIC METABOLIC PANEL [CHEM] DAILYLAB BNP - B-NATRIURETIC PEPTIDE [IAI] DAILYLAB CBC - COMP BLD CT W/AUTO DIFF [HEME] DAILYLAB 10/07/21 05:00 BMP - BASIC METABOLIC PANEL [CHEM] DAILYLAB BNP - B-NATRIURETIC PEPTIDE [IAI] DAILYLAB CBC - COMP BLD CT W/AUTO DIFF [HEME] DAILYLAB 10/08/21 05:00 BMP - BASIC METABOLIC PANEL [CHEM] DAILYLAB BNP - B-NATRIURETIC PEPTIDE [IAI] DAILYLAB CBC - COMP BLD CT W/AUTO DIFF [HEME] DAILYLAB 10/09/21 05:00 BMP - BASIC METABOLIC PANEL [CHEM] DAILYLAB BNP - B-NATRIURETIC PEPTIDE [IAI] DAILYLAB CBC - COMP BLD CT W/AUTO DIFF [HEME] DAILYLAB Subjective - Subjective Patient Reports: Other (Her respiratory status continues to improve daily. She continues to diurese well daily.) Objective Vital Signs: Vital Signs - 24 hr 10/04/21 10/04/21 10/04/21 07:48 11:15 12:22 Temperature 36.6 C 36.5 C Heart Rate 89 76 Heart Rate [ 67 70 Brachial] Heart Rate [ 20 L Monitoring electrodes] Respiratory 18 19 91 H Rate Blood Pressure 110/55 L 106/47 L [Right Brachial artery] O2 Saturation 94 2 L 10/04/21 10/04/21 10/04/21 14:54 15:30 19:30 Temperature 36.4 C L Heart Rate 78 70 Heart Rate [ 78 Brachial] Heart Rate [ Monitoring electrodes] Respiratory 17 20 18 Rate Blood Pressure 147/74 H [Right Brachial artery] O2 Saturation 88 L 07/05/2710/04/21 10/05/21 20:32 23:47 05:00 Temperature 36.9 C 36.7 C 36.6 C Heart Rate Heart Rate [ 69 70 62 Brachial] Heart Rate [ Monitoring electrodes] Respiratory 20 22 18 Rate Blood Pressure 105/43 L 104/47 L 110/46 L [Right Brachial artery] O2 Saturation 92 93 91 L Oxygen O2 Source Nasal cannula Oxygen Flow Rate 2 I&O (Last 24 Hrs): Intake and Output Totals x24h 10/03/21 10/04/21 10/05/21 23:59 23:59 23:59 Intake Total 1480 770 200 Output Total 3100 3350 650 Balance -1620 -6840 -450 Comments/Notes: General: Alert, Oriented x3, No acute distress HEENT: PERRLA, EOMI Neck: Supple, No JVD Neuro: Alert, Non Focal, Oriented Times 3 Cardiovascular: Regular rate Respiratory: Chest non-tender, No respiratory distress, Other (coarse breath sounds) Abdomen: Normal bowel sounds, Soft, No tenderness, No masses Extremities: No clubbing, 2+ edema Skin: No rashes, No breakdown - Results Results: Laboratory Results WBC 4.7 x10^3/uL (4.8-10.8) L 10/05/21 05:08 RBC 2.79 10^6/uL (4.20-5.40) L 10/05/21 05:08 Hgb 7.6 g/dL (12.0-16.0) L 10/05/21 05:08 Hct 27.3 % (37.0-47.0) L 10/05/21 05:08 MCV 97.8 fL (81.0-99.0) 10/05/21 05:08 MCH 27.2 pg (27.0-31.0) 10/05/21 05:08 MCHC 27.8 g/dL (32.0-36.0) L 10/05/21 05:08 RDW 15.9 % (12.0-15.0) H 10/05/21 05:08 Plt Count 214 10^3/uL (130-450) 10/05/21 05:08 MPV 9.4 fL (7.9-10.8) 10/05/21 05:08 Neut # (Auto) 2.8 10^3/uL (1.5-6.6) 10/05/21 05:08 Lymph # (Auto) 1.4 10^3/uL (1.5-3.5) L 10/05/21 05:08 [place] # (Auto) 0.4 10^3/uL (0.0-1.0) 10/05/21 05:08 Eos # (Auto) 0.0 10^3/uL (0.0-0.7) 10/05/21 05:08 Baso # (Auto) 0.0 10^3/uL (0.0-0.1) 10/05/21 05:08 Absolute Nucleated RBC 0.00 x10^3/uL 10/05/21 05:08 Nucleated RBC % 0.0 /100WBC 10/05/21 05:08 Manual Slide Review Indicated 10/01/21 05:23 WBC Morphology NORMAL APPEARANCE (NORMAL) 10/01/21 05:23 Platelet Estimate NORMAL (130-450,000) (NORMAL) 10/01/21 05:23 Platelet Morphology NORMAL APPEARANCE (NORMAL) 10/01/21 05:23 RBC Morph Micro Appear 2+ HYPOCHROMASIA (NORMAL) 10/01/21 05:23 VBG pH 7.371 (7.31-7.41) 09/29/21 16:32 VBG pCO2 59.0 mmHg (41-51) H 09/29/21 16:32 VBG pO2 40.8 mmHg (25-47) 09/29/21 16:32 VBG HCO3 33.4 mmol/L (23-28) H 09/29/21 16:32 VBG Total CO2 35.2 mmol/L (24-29) H 09/29/21 16:32 VBG O2 Saturation 81.7 % (60-80) H 09/29/21 16:32 VBG Base Excess 7.0 mmol/L (-2 - +2) H 09/29/21 16:32 Sodium 135 mmol/L (135-145) 10/05/21 05:08 Potassium 3.4 mmol/L (3.5-5.0) L 10/05/21 05:08 Chloride 89 mmol/L (101-111) L 10/05/21 05:08 Carbon Dioxide 38 mmol/L (21-32) H 10/05/21 05:08 Anion Gap 8.0 (6-13) 10/05/21 05:08 BUN 45 mg/dL (6-20) H 10/05/21 05:08 Creatinine 1.2 mg/dL (0.4-1.0) H 10/05/21 05:08 Estimated GFR (MDRD) 45 (>89) L 10/05/21 05:08 Glucose 107 mg/dL (70-100) H 10/05/21 05:08 POC Whole Bld Glucose 100 mg/dL (70 - 100) 10/05/21 07:20 Estimat Average Glucose 82 mg/dL (70-100) 09/29/21 16:32 Hemoglobin A1c % 4.5 % (4.27-6.07) 09/29/21 16:32 Calcium 8.0 mg/dL (8.5-10.3) L 10/05/21 05:08 Phosphorus 4.6 mg/dL (2.5-4.6) 10/02/21 05:11 Magnesium 2.3 mg/dL (1.7-2.8) 10/02/21 05:11 Iron 20 ug/dL (28-170) L 09/29/21 19:00 TIBC 393 ug/dL (250-450) 09/29/21 19:00 % Saturation 5 % (20-50) L 09/29/21 19:00 Transferrin 281 mg/dL (192-382) 09/29/21 19:00 Total Bilirubin 0.5 mg/dL (0.2-1.0) 09/29/21 16:32 AST 11 IU/L (10-42) 09/29/21 16:32 ALT 12 IU/L (10-60) 09/29/21 16:32 Alkaline Phosphatase 122 IU/L (42-121) H 09/29/21 16:32 B-Natriuretic Peptide 1753 pg/mL (5-100) H 10/05/21 05:08 Total Protein 6.7 g/dL (6.7-8.2) 09/29/21 16:32 Albumin 3.0 g/dL (3.2-5.5) L 09/29/21 16:32 Globulin 3.7 g/dL (2.1-4.2) 09/29/21 16:32 Albumin/Globulin Ratio 0.8 (1.0-2.2) L 09/29/21 16:32 Vitamin B12 1256 pg/mL (180-914) H 09/29/21 19:00 Folate 44.00 ng/mL (5.90 - >24.8) 09/29/21 19:00 Procalcitonin 0.34 ng/mL (<0.5) 09/29/21 16:32 TSH 4.62 uIU/mL (0.34-5.60) 09/29/21 19:00 Urine Color YELLOW 09/29/21 19:35 Urine Clarity HAZY (CLEAR) 09/29/21 19:35 Urine pH 5.5 PH (5.0-7.5) 09/29/21 19:35 Ur Specific [place] 1.020 (1.002-1.030) 09/29/21 19:35 Urine Protein NEGATIVE mg/dL (NEGATIVE) 09/29/21 19:35 Urine Glucose (UA) NEGATIVE mg/dL (NEGATIVE) 09/29/21 19:35 Urine Ketones NEGATIVE mg/dL (NEGATIVE) 09/29/21 19:35 Urine Occult Blood NEGATIVE (NEGATIVE) 09/29/21 19:35 Urine Nitrite POSITIVE (NEGATIVE) H 09/29/21 19:35 Urine Bilirubin NEGATIVE (NEGATIVE) 09/29/21 19:35 Urine Urobilinogen 0.2 (NORMAL) E.U./dL (NORMAL) 09/29/21 19:35 Ur Leukocyte Esterase SMALL (NEGATIVE) H 09/29/21 19:35 Urine RBC 0-5 /HPF (0-5) 09/29/21 19:35 Urine WBC 6-10 /HPF (0-5) H 09/29/21 19:35 Ur Squamous Epith Cells MANY Squamous (<= Few) H 09/29/21 19:35 Urine Bacteria Many /HPF (None Seen) H 09/29/21 19:35 Ur Microscopic Review INDICATED 09/29/21 19:35 Urine Culture Comments NOT INDICATED 09/29/21 19:35 Nasal Adenovirus (PCR) NOT DETECTED 09/29/21 17:25 Nasal B. parapertussis DNA (PCR) NOT DETECTED 09/29/21 17:25 Nasal Coronavir 229E PCR NOT DETECTED 09/29/21 17:25 Nasal Coronavir HKU1 PCR NOT DETECTED 09/29/21 17:25 Nasal Coronavir NL63 PCR NOT DETECTED 09/29/21 17:25 Nasal Coronavir OC43 PCR NOT DETECTED 09/29/21 17:25 Nasal Enterovir/Rhinovir PCR NOT DETECTED 09/29/21 17:25 Nasal Influenza B PCR NOT DETECTED 09/29/21 17:25 Nasal Influenza A PCR NOT DETECTED 09/29/21 17:25 Nasal Parainfluen 1 PCR NOT DETECTED 09/29/21 17:25 Nasal Parainfluen 2 PCR NOT DETECTED 09/29/21 17:25 Nasal Parainfluen 3 PCR NOT DETECTED 09/29/21 17:25 Nasal Parainfluen 4 PCR NOT DETECTED 09/29/21 17:25 Nasal RSV (PCR) NOT DETECTED 09/29/21 17:25 Nasal B.pertussis DNA PCR NOT DETECTED 09/29/21 17:25 Nasal C.pneumoniae (PCR) NOT DETECTED 09/29/21 17:25 Alhaji Human Metapneumo PCR NOT DETECTED 09/29/21 17:25 Nasal M.pneumoniae (PCR) NOT DETECTED 09/29/21 17:25 Nasal SARS-CoV-2 (PCR) NOT DETECTED 09/29/21 17:25 Stl Occult Blood (IFOB) POSITIVE (NEGATIVE) A 10/03/21 16:20 Blood Type A POSITIVE 09/29/21 19:00 Antibody Screen NEGATIVE 09/29/21 19:00 Crossmatch IS Only See Detail 09/29/21 19:00 - Procedures Procedures: Procedures EXCISION OF DESCENDING COLON, ENDO (10/18/20) EXCISION OF DESCENDING COLON, ENDO, DIAGN (10/18/20) EXCISION OF RECTUM, ENDO, DIAGN (10/18/20) EXCISION OF STOMACH, ENDO, DIAGN (10/18/20) EXCISION OF TRANSVERSE COLON, ENDO (10/18/20) EXCISION OF TRANSVERSE COLON, ENDO, DIAGN (10/18/20) INSERTION OF INFUSION DEV INTO SUP VENA CAVA, PERC APPROACH (06/18/15) ABX Reporting Has patient been on IV antibiotics over the past 48 hours?: No
[2021-10-05] MEDS: IPRATROPIUM/ALBUTEROL 3 ML NEB INH SCH ×4 (07:30→19:02)
[2021-10-05] MEDS: BUDESONIDE 0.5 MG/2 ML NEB INH SCH ×2 (07:30→19:02)
[2021-10-05] MEDS: INSULIN ASPART 300 UNIT/3 ML PEN SUBQ SCH ×4 (07:33→20:37)
[2021-10-05] MEDS: ENOXAPARIN 40 MG/0.4 ML SYRINGE SUBQ SCH (09:02)
[2021-10-05] MEDS: GABAPENTIN 300 MG CAPSULE PO SCH ×2 (09:02→20:37)
[2021-10-05] MEDS: CALCIUM CARBONATE CHEW 500 MG TABLET PO SCH ×2 (09:03→20:13)
[2021-10-05] MEDS: guaiFENesin 600 MG TABLET PO SCH ×2 (09:03→20:37)
[2021-10-05] MEDS: DOCUSATE SODIUM 250 MG CAPSULE PO SCH (09:04)
[2021-10-05] MEDS: SENNA 8.6 MG TABLET PO SCH (09:04)
[2021-10-05] MEDS: ESCITALOPRAM 10 MG TABLET PO SCH (09:04)
[2021-10-05] MEDS: ASPIRIN CHEW 81 MG TABLET PO SCH (09:05)
[2021-10-05] MEDS: predniSONE 20 MG TABLET PO SCH (09:06)
[2021-10-05] MEDS: FOLIC ACID 1 MG TABLET PO SCH (09:06)
[2021-10-05] MEDS: METOPROLOL SUCCINATE 25 MG TABLET PO SCH (09:07)
[2021-10-05] MEDS: NICOTINE 14 MG PATCH TOP SCH (09:08)
[2021-10-05] MEDS: SOTORASIB 120 MG PO SCH (09:12)
[2021-10-05] MEDS: TRIAMCINOLONE 0.1% OINT 15 GM TUBE TOP SCH ×2 (09:12→20:37)
[2021-10-05] MEDS: FERROUS GLUCONATE 324 MG TABLET PO SCH (11:45)
[2021-10-05] MEDS: ATORVASTATIN 40 MG TABLET PO SCH (20:36)
[2021-10-06] MEDS: HYDROcod/ACETAM 5/325 MG TABLET PO PRN ×2 (01:14→09:52)
[2021-10-06] MEDS: metOLazone 2.5 MG TABLET PO SCH (04:58)
[2021-10-06 05:04] LABS: BASOPHILS % (AUTO) 0.2 %; EOSINOPHILS % (AUTO) 0.2 %; HGB - HEMOGLOBIN 7.5 g/dL (12.0-16.0); LYMPHOCYTES # (AUTO) 1.2 10^3/uL (1.5-3.5); LYMPHOCYTES % (AUTO) 21.6 %; MEAN CORPUSCULAR HEMOGLOBIN 26.9 pg (27.0-31.0); MEAN CORPUSCULAR HGB CONC 27.8 g/dL (32.0-36.0); MEAN CORPUSCULAR VOLUME 96.8 fL (81.0-99.0); MEAN PLATELET VOLUME 9.9 fL (7.9-10.8); MONOCYTES # (AUTO) 0.5 10^3/uL (0.0-1.0); MONOCYTES % (AUTO) 8.9 %; NEUTROPHILS # (AUTO) 3.8 10^3/uL (1.5-6.6); NEUTROPHILS % (AUTO) 68.7 %; PLT - PLATELET COUNT 231 10^3/uL (130-450); RED BLOOD COUNT 2.79 10^6/uL (4.20-5.40); RED CELL DISTRIBUTION WIDTH 15.6 % (12.0-15.0); WHITE BLOOD COUNT 5.6 x10^3/uL (4.8-10.8)
[2021-10-06 05:09] LABS: SLIDE REVIEW? Indicated
[2021-10-06 05:16] LABS: CALCIUM 8.2 mg/dL (8.5-10.3); CREATININE 1.3 mg/dL (0.4-1.0); POTASSIUM 3.5 mmol/L (3.5-5.0)
[2021-10-06 05:21] LABS: PLATELET ESTIMATE, MANUAL NORMAL (130-450,000) (NORMAL); PLATELET MORPHOLOGY NORMAL APPEARANCE (NORMAL); RBC MORPHOLOGY (MULTIPLE) 2+ HYPOCHROMASIA (NORMAL); WBC MORPHOLOGY (MULTIPLE) NORMAL APPEARANCE (NORMAL)
[2021-10-06] MEDS: PANTOPRAZOLE 40 MG TABLET PO SCH (06:38)
[2021-10-06] MEDS: FUROSEMIDE 40 MG/4 ML VIAL IVP SCH (06:38)
[2021-10-06] MEDS: LEVOTHYROXINE 75 MCG TABLET PO SCH (06:38)
[2021-10-06] MEDS: BUDESONIDE 0.5 MG/2 ML NEB INH SCH (07:18)
[2021-10-06] MEDS: IPRATROPIUM/ALBUTEROL 3 ML NEB INH SCH ×2 (07:18→13:09)
[2021-10-06] MEDS: INSULIN ASPART 300 UNIT/3 ML PEN SUBQ SCH ×2 (08:19→11:43)
[2021-10-06] MEDS: ASPIRIN CHEW 81 MG TABLET PO SCH (08:57)
[2021-10-06] MEDS: DOCUSATE SODIUM 250 MG CAPSULE PO SCH (08:57)
[2021-10-06] MEDS: ESCITALOPRAM 10 MG TABLET PO SCH (08:57)
[2021-10-06] MEDS: CALCIUM CARBONATE CHEW 500 MG TABLET PO SCH (08:57)
[2021-10-06] MEDS: FOLIC ACID 1 MG TABLET PO SCH (08:58)
[2021-10-06] MEDS: GABAPENTIN 300 MG CAPSULE PO SCH (08:58)
[2021-10-06] MEDS: predniSONE 20 MG TABLET PO SCH (08:58)
[2021-10-06] MEDS: METOPROLOL SUCCINATE 25 MG TABLET PO SCH (08:58)
[2021-10-06] MEDS: NICOTINE 14 MG PATCH TOP SCH (08:58)
[2021-10-06] MEDS: guaiFENesin 600 MG TABLET PO SCH (08:58)
[2021-10-06] MEDS: SENNA 8.6 MG TABLET PO SCH (08:58)
[2021-10-06] MEDS: ENOXAPARIN 40 MG/0.4 ML SYRINGE SUBQ SCH (08:58)
[2021-10-06] MEDS: TRIAMCINOLONE 0.1% OINT 15 GM TUBE TOP SCH (09:03)
[2021-10-06] MEDS: SODIUM CHLORIDE FLUSH 0.9% 10 ML SYRINGE IVP SCH (09:03)
[2021-10-06] MEDS: SOTORASIB 120 MG PO SCH (09:09)
--- NOTE | 2021-10-06 09:54 | DISCHARGE SUMMARY ---
Discharge Summary Admit Date: 09/29/21 Discharge Date: 10/06/21 Discharging Provider: Brenna Walltu Code Status: Do Not Attempt Resuscitation Condition at Discharge: Stable Discharge Disposition: 01 Home, Self Care - DIAGNOSES Admission Diagnoses: 1. Acute on chronic hypoxemic/hypercapnic respiratory failure 2. COPD exacerbation 3. Symptomatic anemia 4. IAN/CKD stage III 5. Non-small cell lung CA with metastatic spread 6. Obesity hypoventilation syndrome 7. Anasarca/bilateral extremity edema 8. Hypertension 9. Hyperlipidemia 10. Peripheral neuropathy 11. Type 2 diabetes mellitus 12. Hypothyroidism 13. Anxiety with depression Discharge Diagnoses with Status of Each Condition: 1. Acute on chronic hypoxemic/hypercapnic respiratory failure: Improved 2. COPD exacerbation: Improved/ Resolved 3. Symptomatic anemia: Stable. s/p transfusion of 2 units of PRBC 4. IAN/CKD stage III: Likely 2/2 CHF exab. Improved with diuresis 5. Non-small cell lung CA with metastatic spread: On oral chemotherapy. Follows with palliative and oncology 6. Obesity hypoventilation syndrome: Chronic 7. Anasarca/bilateral extremity edema:Acute. Improved. 2/2 CHF exacerbation Continue diuresis and fluid restriction at home 8. Hypertension: Chronic. Stable. Continue home medications 9. Hyperlipidemia:: Chronic. Stable. Continue home medications 10. Peripheral neuropathy: Chronic. Continue home medications 11. Type 2 diabetes mellitus: Chronic. Stable. Continue home medications 12. Hypothyroidism: Chronic. Stable. Continue home medications 13. Anxiety with depression: Chronic. Stable. Continue home medications - HPI History of Present Illness: Bibi is a 70-year-old female with a history of acute on chronic hypoxemic/hypercapnic respiratory failure, non-small cell metastatic lung CA, O2 dependent COPD-emphysema, CKD stage III, diet-controlled type 2 diabetes mellitus, obesity, depression with anxiety, hypertension, hyperlipidemia, prior ID, chronic tobacco use disorder, cor pulmonale, obesity hypoventilation syndrome, chronic lymphedema/anasarca, anemia, presenting to [facility] ER with worsening shortness of breath and associated wheezing, fatigue and pleuritic chest pain with productive cough. She was found to have CHF on CXR with a BNP of 3667. Previously was at 1600. L FTs within normal limits but creatinine up trended to 1.9 with a baseline ranging between 1.4-1.5, CO2 34, VBG shows a pH of 7.37, PCO2 of 59 and a bicarb of 33.4. Other electrolytes were unremarkable and CBC showed a hemoglobin 7.6 with baseline ranging between 7.5-9.0 however had been as low as 6.0 on 09/23 and has received blood transfusion secondary to severe iron deficiency anemia with prior EGD showing gastritis with bleeding could be the source of her bleeding and is on omeprazole with ferrous gluconate. On 07/15/2021 she had a hemoglobin of 11 g/dL. Patient had desatted to 84% on 2 L nasal cannula and she is typically on 2 L at home and uses a trilogy vent machine that she is compliant with and has been having increased abdominal girth, bilateral lower extremity worsening edema and worsening orthopnea and paroxysmal nocturnal dyspnea with dyspnea at rest and with associated pleuritic chest pain. She denies fevers, nausea, emesis, GI or symptoms, maculopapular rashes or joint tenderness.Hospitalist service was requested on further evaluation management treatment. - HOSPITAL COURSE Hospital Course: Patient was admitted on 09/29/2021 with cough, wheezing and shortness of breath. At that time her BNP was 3667. CHF was also seen on chest x-ray done. She was diagnosed with CHF exacerbation and COPD and admitted for further treatm ent. She was placed on Solu-Medrol, Lasix, Metolazone and received DuoNeb breathing treatments. She was also on empiric antibiotics. She was placed on the low sodium diet with fluid restriction of 1200 mils total daily. Patient's BNP subsequently increased to 5200 however by the day of discharge it had decreased to 1580. Her Lasix had to be increased to 80 mg IV twice daily to successfully achieve diuresis. Every day the patient's respiratory status improved steadily. Her lower extremity edema/anasarca are also improved steadily. Patient's hemoglobin dropped to 6.8 during the hospital stay. This was likely due to dilution. However she was transfused 2 units of packed red blood cells. By the day of discharge hemoglobin was stable at 7.5. The patient is being discharged home on 10/06/2021. She has been advised to take Lasix 60 mg p.o. twice daily for 6 days before resuming her Lasix 40 mg p.o. twice daily. After this she was advised to buy weighing scale and measure her weight first th ing in the morning daily. If her weight increased by 5 pounds or more from 1 day to the next she was to take an extra dose of her Lasix. She expressed understanding and is agreeable with the plan. She will be seen by Harini Cuadra with palliative care in the following week at home. - ALLERGIES Allergies/Adverse Reactions: Allergies Allergy/AdvReac Type Severity Reaction Status Date / Time No Known Drug Allergies Allergy Verified 09/29/21 16:15 - MEDICATIONS Home Medications: Ambulatory Orders Medication Instructions Recorded Confirmed Levothyroxine [Synthroid] 75 mcg PO DAILY 10/04/18 09/29/21 Zolpidem [Ambien] 10 mg ORAL QPM PRN 04/18/19 09/29/21 Gabapentin 600 mg PO BID 02/06/20 09/29/21 Omeprazole 40 mg PO DAILY 07/23/20 09/29/21 Folic Acid 1 mg PO DAILY 10/08/20 09/29/21 Metoprolol Succinate [Toprol Xl] 25 mg PO DAILY 11/13/20 09/29/21 Ferrous Gluconate 324 mg PO DAILY 05/27/21 09/29/21 HYDROcod/ACETAM 5/325 [[place] 5/325] 1 - 2 tab PO TID PRN 05/27/21 09/29/21 Sotorasib [Lumakras] 960 mg PO DAILY MDD due to start 06/25/21 09/29/21 5/3 Ondansetron Odt [Zofran Odt] 4 mg TL Q6H PRN #30 tab 06/30/21 09/29/21 Aspirin Chewable [[place] 81 mg PO DAILY #30 tablet 07/18/21 09/29/21 Aspirin] Simvastatin [Zocor] 80 mg PO HS #30 tablet 07/18/21 09/29/21 Triamcinolone Acetonide 1 applic TOP BID 07/25/21 09/29/21 Calcium Carbonate [Tums (Calcium 500 mg PO BID #60 tablet 07/29/21 09/29/21 Carbonate 500mg)] Ipratropium/Albuterol [Duoneb] 3 ml INH Q4HR PRN #100 neb 07/29/21 09/29/21 Escitalopram [Lexapro] 20 mg PO DAILY 08/04/21 09/29/21 Furosemide [Lasix] 40 mg PO 0800,1400 #30 tab 10/06/21 - PHYSICAL EXAM AT DISCHARGE General Appearance: positive: Alert, Mild distress Eyes Bilateral: positive: PERRL, EOMI ENT: positive: No signs of dehydration Neck: positive: No JVD, Trachea midline Respiratory: positive: Chest non-tender, Rales (mild) Cardiovascular: positive: Regular rate & rhythm, No murmur Abdomen: positive: Non-tender, No organomegaly, Nml bowel sounds, No distention. negative: Guarding, Rebound Back: positive: Nml inspection, CVA tenderness (R) Skin: positive: Color nml, No rash, Warm, Dry Extremities: positive: Non-tender, Full ROM, Pedal edema (1+ edema) Neurologic/Psychiatric: positive: Oriented x3, Mood/affect nml - LABS Result Diagrams: 10/06/21 04:25 10/06/21 04:25 - TIME SPENT Time Spent in Discharge (Minutes): 20
--- NOTE | 2021-10-06 09:57 | Discharge Plan ---
Discharge Plan Problem Reviewed?: Yes Disposition: Home, Self Care Condition: Stable Prescriptions: Furosemide [Lasix] 40 mg PO 0800,1400 #30 tab Diet: Low Sodium Activity Restrictions: Activity as Tolerated Assistance Devices: [facility] Concerns: Patient was admitted on 09/29/2021 with cough, wheezing and shortness of breath. At that time her BNP was 3667. CHF was also seen on chest x-ray done. She was diagnosed with CHF exacerbation and COPD and admitted for further treatment. She was placed on Solu-Medrol, Lasix and received DuoNeb breathing treatments. She was also on empiric antibiotics. She was placed on the low sodium diet with fluid restriction of 1200 mils total daily. Patient's BMP subsequently increased to 5200 however by the day of discharge it had decreased to 1580. Every day the patient's respiratory status improved steadily. Her lower extremity edema/anasarca are also improved steadily. The patient is being discharged home on 10/06/2021. She has been advised to take Lasix 60 mg p.o. twice daily for 6 days before resuming her Lasix 40 mg p.o. twice daily. After this she was advised to buy weighing scale and measure her weight first thing in the morning daily. If her weight increased by 5 pounds or more from 1 day to the next she was to take an extra dose of her Lasix. She expressed understanding and is agreeable with the plan. She will be seen by Harini Cuadra with palliative care in the following week at home. No Smoking: If you smoke, Please STOP! Call for help.
[2021-10-06] MEDS: FERROUS GLUCONATE 324 MG TABLET PO SCH (11:44)
[2021-10-06 12:18] VITALS: BP 118/48
== END 2021-10-06 12:48 | disposition home or self-care (01) | DRG 291 ==
LOC: ED 16:06 → MS3 17:46 → MS2 10-02 15:46
PROVIDERS: ADMIT Family Medicine; ATTEND Internal Medicine
PROC: 30233N1 Transfusion of Nonautologous Red Blood Cells into Peripheral Vein, Percutaneous Approach (ICD-10-PCS; principal; 2021-10-01)
DX: I11.0 Hypertensive heart disease with heart failure (principal); I13.0 Hypertensive heart and chronic kidney disease with heart failure and stage 1 through stage 4 chronic kidney disease, or unspecified chronic kidney disease; J44.1 Chronic obstructive pulmonary disease with (acute) exacerbation; I50.33 Acute on chronic diastolic (congestive) heart failure; J96.22 Acute and chronic respiratory failure with hypercapnia; J96.21 Acute and chronic respiratory failure with hypoxia; K29.71 Gastritis, unspecified, with bleeding; Z20.822 Contact with and (suspected) exposure to COVID-19; N17.9 Acute kidney failure, unspecified; C34.90 Malignant neoplasm of unspecified part of unspecified bronchus or lung; C79.9 Secondary malignant neoplasm of unspecified site; E66.2 Morbid (severe) obesity with alveolar hypoventilation; E87.4 Mixed disorder of acid-base balance; N18.30 Chronic kidney disease, stage 3 unspecified; E78.5 Hyperlipidemia, unspecified; E11.42 Type 2 diabetes mellitus with diabetic polyneuropathy; E11.22 Type 2 diabetes mellitus with diabetic chronic kidney disease; E03.9 Hypothyroidism, unspecified; F41.9 Anxiety disorder, unspecified; I25.2 Old myocardial infarction; F17.200 Nicotine dependence, unspecified, uncomplicated; D50.0 Iron deficiency anemia secondary to blood loss (chronic); J43.9 Emphysema, unspecified; R32 Unspecified urinary incontinence; H54.7 Unspecified visual loss; F31.9 Bipolar disorder, unspecified; M19.90 Unspecified osteoarthritis, unspecified site; K59.00 Constipation, unspecified; Z66 Do not resuscitate; Z79.82 Long term (current) use of aspirin; Z79.890 Hormone replacement therapy; Z79.899 Other long term (current) drug therapy; Z90.49 Acquired absence of other specified parts of digestive tract; Z99.81 Dependence on supplemental oxygen
CPT/HCPCS: 36415; 71045; 80048; 80053; 81001; 82274; 82607; 82746; 82803; 83036; 83540; 83735; 83880; 84100; 84145; 84443; 84466; 85014; 85018; 85025; 86850; 86900; 86901; 86920; 87633; 94640; 96374; 96375; 97161; 97165; 99283; 99285; A9270; J1650; J7512; J7626; P9016; P9047; 81003; 87086

== ENCOUNTER 2021-10-11 07:54 | Inpatient (IN) | payer MEDICARE, OTHER ==
--- NOTE | 2021-10-11 08:37 | XRAY Report ---
PROCEDURE: Chest 1 View X-Ray INDICATIONS: cough, hypoxia COMMENTS: COUGH, HYPOXIA PRIORS: 09/29/21 TECHNIQUE: One view of the chest was acquired. COMPARISON: 09/29/2021. CT on 05/06/2021 FINDINGS: Surgical changes and devices: Left Port-A-Cath is unchanged. Lungs and pleura: No pleural effusions or pneumothorax. Lungs are clear. There is opacification of the right superior hemithorax, unchanged compared to prior x-rays. Mediastinum: Mediastinal contours appear normal. Cardiomediastinal silhouette is enlarged and uncha nged in appearance compared to the prior x-ray. Bones and chest wall: No suspicious bony lesions. Overlying soft tissues appear unremarkable. IMPRESSION: 1. Stable cardiomegaly. 2. Unchanged opacification of the right superior hemithorax consistent with chronic right upper lobe atelectasis as seen on prior CTs. Reviewed by: Jr Abad on 10/11/2021 7:36 AM BERT Approved by: Jr Abad on 10/11/2021 7:36 AM BERT Station ID: [id number]
--- NOTE | 2021-10-11 08:45 | ED Physician Documentation ---
History of Present Illness - Stated complaint Stated Complaint: AMS/LOW O2 - Chief complaint Chief Complaint: Resp - History obtained from History obtained from: Patient, EMS - History of Present Illness Timing: Today Pain level max: 0 Pain level now: 0 - Additonal information Additional information: 70-year-old female with a history of sleep apnea, lung cancer, home oxygen dependency, presents to the emergency department after her friend found her difficult to arouse this morning. EMS states that her O2 sat was in the 60s upon their arrival. Unclear if the CPAP machine was on or working. Subjective fever per EMS. Patient denies fever. Initially EMS states that the patient was very confused, but seems to be back to her baseline now. Patient denies any trauma. She states that she is on oral chemotherapy for her lung cancer. No chest pain. Mild shortness of breath. No abdominal pain. No nausea, vomiting, diarrhea. No chest pain or palpitations Review of Systems Ten Systems: 10 systems reviewed and negative Constitutional: denies: Fever, Chills Nose: denies: Rhinorrhea / runny nose, Congestion Respiratory: reports: Cough GI: denies: Nausea, Vomiting, Diarrhea Skin: denies: Rash PD PAST MEDICAL HISTORY - Past Medical History Cardiovascular: Congestive heart failure, Hypertension, High cholesterol, [place] Respiratory: COPD, Emphysema, Other Neuro: Peripheral neuropathy Endocrine/Autoimmune: Type 2 diabetes, HyPOthyroidism GI: Other ELECTRICAL INTERN: None : Incontinence HEENT: Chronic vision loss, Other Psych: Depression, Anxiety, Bipolar disorder Musculoskeletal: Osteoarthritis, Fatigue Derm: None - Past Surgical History Past Surgical History: Yes General: EGD Cardiovascular: Coronary stent, Cardiac catheterization HEENT: Tonsil/Adenoidectomy - Present Medications Home Medications: Ambulatory Orders Medication Instructions Recorded Confirmed Levothyroxine [Synthroid] 75 mcg PO DAILY 10/04/18 09/29/21 Zolpidem [Ambien] 10 mg ORAL QPM PRN 04/18/19 09/29/21 Gabapentin 600 mg PO BID 02/06/20 09/29/21 Omeprazole 40 mg PO DAILY 07/23/20 09/29/21 Folic Acid 1 mg PO DAILY 10/08/20 09/29/21 Metoprolol Succinate [Toprol Xl] 25 mg PO DAILY 11/13/20 09/29/21 Ferrous Gluconate 324 mg PO DAILY 05/27/21 09/29/21 HYDROcod/ACETAM 5/325 [[place] 5/325] 1 - 2 tab PO TID PRN 05/27/21 09/29/21 Sotorasib [Lumakras] 960 mg PO DAILY MDD due to start 06/25/21 09/29/21 5/3 Ondansetron Odt [Zofran Odt] 4 mg TL Q6H PRN #30 tab 06/30/21 09/29/21 Aspirin Chewable [[place] 81 mg PO DAILY #30 tablet 07/18/21 09/29/21 Aspirin] Simvastatin [Zocor] 80 mg PO HS #30 tablet 07/18/21 09/29/21 Triamcinolone Acetonide 1 applic TOP BID 07/25/21 09/29/21 Calcium Carbonate [Tums (Calcium 500 mg PO BID #60 tablet 07/29/21 09/29/21 Carbonate 500mg)] Ipratropium/Albuterol [Duoneb] 3 ml INH Q4HR PRN #100 neb 07/29/21 09/29/21 Escitalopram [Lexapro] 20 mg PO DAILY 08/04/21 09/29/21 Furosemide [Lasix] 40 mg PO 0800,1400 #30 tab 10/06/21 - Allergies Allergies/Adverse Reactions: Allergies Allergy/AdvReac Type Severity Reaction Status Date / Time No Known Drug Allergies Allergy Verified 09/29/21 16:15 - Social History Does the pt smoke?: Yes Smoking Status: Current every day smoker Does the pt drink ETOH?: No Does the pt have substance abuse?: No - Immunizations Immunizations: TDAP >10years/unknown - POLST Patient has POLST: Yes POLST Status: DNR PD ED PE NORMAL - Vitals Vital signs reviewed: Yes - General General: Alert and oriented X 3, No acute distress - HEENT HEENT: Moist mucous membranes, Pharynx benign - Neck Neck: Supple, no meningeal sign - Cardiac Cardiac: RRR - Respiratory Respiratory: No respiratory distress, Other (rhonchi B) - Abdomen Abdomen: Soft, Non tender, Non distended - Back Back: No spinal TTP - Derm Derm: Warm and dry, No rash - Extremities Extremities: Other (2+ b LE edema) - Neuro Neuro: Alert and oriented X 3 Results - Vitals Vitals: Vital Signs - 24 hr 10/11/21 10/11/21 10/11/21 08:03 10:11 12:28 Temperature 37.7 C 37.4 C Heart Rate 114 H 104 H Heart Rate [ 89 Apical] Respiratory 22 26 H 26 H Rate Blood Pressure 109/57 L 114/55 L Blood Pressure 92/55 L [Right Brachial artery] O2 Saturation 91 L 96 97 10/11/21 10/11/21 10/11/21 12:35 12:43 12:44 Temperature 37.4 C 36.8 C 36.8 C Heart Rate 89 Heart Rate [ 90 90 Apical] Respiratory 26 H 23 23 Rate Blood Pressure 92/55 L Blood Pressure 96/50 L 96/50 L [Right Brachial artery] O2 Saturation 96 96 10/11/21 12:58 Temperature 97.6 C H Heart Rate Heart Rate [ 88 Apical] Respiratory 20 Rate Blood Pressure Blood Pressure 99/57 L [Right Brachial artery] O2 Saturation 92 Oxygen O2 Source Nasal cannula Oxygen Flow Rate 2 - Labs Labs: Laboratory Tests 10/11/21 10/11/21 10/11/21 08:42 08:42 08:42 WBC 7.9 RBC 2.04 L Hgb 5.7 L* Hct 20.5 L MCV 100.5 H MCH 27.9 MCHC 27.8 L RDW 17.4 H Plt Count 254 MPV 9.8 Neut # (Auto) 6.4 Lymph # (Auto) 1.0 L Larue # (Auto) 0.5 Eos # (Auto) 0.0 Baso # (Auto) 0.0 Absolute Nucleated RBC 0.00 Nucleated RBC % 0.0 PT 14.2 H INR 1.3 H APTT 27.8 Sodium 137 Potassium 3.9 Chloride 88 L Carbon Dioxide 36 H Anion Gap 13.0 BUN 63 H Creatinine 1.7 H Estimated GFR (MDRD) 30 L Glucose 153 H Lactic Acid Calcium 7.6 L Total Bilirubin 1.3 H AST 41 ALT 71 H Alkaline Phosphatase 507 H B-Natriuretic Peptide Total Protein 6.5 L Albumin 3.0 L Globulin 3.5 Albumin/Globulin Ratio 0.9 L Lipase 77 H Urine Color Urine Clarity Urine pH Ur Specific Donner Urine Protein Urine Glucose (UA) Urine Ketones Urine Occult Blood Urine Nitrite Urine Bilirubin Urine Urobilinogen Ur Leukocyte Esterase Urine RBC Urine WBC Ur Squamous Epith Cells Urine Bacteria Ur Microscopic Review Urine Culture Comments Nasal Adenovirus (PCR) Nasal B. parapertussis DNA (PCR) Nasal Coronavir 229E PCR Nasal Coronavir HKU1 PCR Nasal Coronavir NL63 PCR Nasal Coronavir OC43 PCR Nasal Enterovir/Rhinovir PCR Nasal Influenza B PCR Nasal Influenza A PCR Nasal Parainfluen 1 PCR Nasal Parainfluen 2 PCR Nasal Parainfluen 3 PCR Nasal Parainfluen 4 PCR Nasal RSV (PCR) Nasal B.pertussis DNA PCR Nasal C.pneumoniae (PCR) Alhaji Human Metapneumo PCR Nasal M.pneumoniae (PCR) Nasal SARS-CoV-2 (PCR) Blood Type Antibody Screen Crossmatch IS Only 10/11/21 10/11/21 10/11/21 08:42 08:53 09:00 WBC RBC Hgb Hct MCV MCH MCHC RDW Plt Count MPV Neut # (Auto) Lymph # (Auto) Larue # (Auto) Eos # (Auto) Baso # (Auto) Absolute Nucleated RBC Nucleated RBC % PT INR APTT Sodium Potassium Chloride Carbon Dioxide Anion Gap BUN Creatinine Estimated GFR (MDRD) Glucose Lactic Acid 0.8 Calcium Total Bilirubin AST ALT Alkaline Phosphatase B-Natriuretic Peptide 2912 H Total Protein Albumin Globulin Albumin/Globulin Ratio Lipase Urine Color Urine Clarity Urine pH Ur Specific Donner Urine Protein Urine Glucose (UA) Urine Ketones Urine Occult Blood Urine Nitrite Urine Bilirubin Urine Urobilinogen Ur Leukocyte Esterase Urine RBC Urine WBC Ur Squamous Epith Cells Urine Bacteria Ur Microscopic Review Urine Culture Comments Nasal Adenovirus (PCR) NOT DETECTED Nasal B. parapertussis DNA (PCR) NOT DETECTED Nasal Coronavir 229E PCR NOT DETECTED Nasal Coronavir HKU1 PCR NOT DETECTED Nasal Coronavir NL63 PCR NOT DETECTED Nasal Coronavir OC43 PCR NOT DETECTED Nasal Enterovir/Rhinovir PCR NOT DETECTED Nasal Influenza B PCR NOT DETECTED Nasal Influenza A PCR NOT DETECTED Nasal Parainfluen 1 PCR NOT DETECTED Nasal Parainfluen 2 PCR NOT DETECTED Nasal Parainfluen 3 PCR NOT DETECTED Nasal Parainfluen 4 PCR NOT DETECTED Nasal RSV (PCR) NOT DETECTED Nasal B.pertussis DNA PCR NOT DETECTED Nasal C.pneumoniae (PCR) NOT DETECTED Alhaji Human Metapneumo PCR NOT DETECTED Nasal M.pneumoniae (PCR) NOT DETECTED Nasal SARS-CoV-2 (PCR) NOT DETECTED Blood Type Antibody Screen Crossmatch IS Only 10/11/21 10/11/21 09:15 09:30 WBC RBC Hgb Hct MCV MCH MCHC RDW Plt Count MPV Neut # (Auto) Lymph # (Auto) Larue # (Auto) Eos # (Auto) Baso # (Auto) Absolute Nucleated RBC Nucleated RBC % PT INR APTT Sodium Potassium Chloride Carbon Dioxide Anion Gap BUN Creatinine Estimated GFR (MDRD) Glucose Lactic Acid Calcium Total Bilirubin AST ALT Alkaline Phosphatase B-Natriuretic Peptide Total Protein Albumin Globulin Albumin/Globulin Ratio Lipase Urine Color YELLOW Urine Clarity SL. CLOUDY Urine pH 6.0 Ur Specific Donner 1.010 Urine Protein TRACE Urine Glucose (UA) NEGATIVE Urine Ketones NEGATIVE Urine Occult Blood NEGATIVE Urine Nitrite POSITIVE H Urine Bilirubin NEGATIVE Urine Urobilinogen 1 (NORMAL) Ur Leukocyte Esterase TRACE H Urine RBC None Seen Urine WBC >25 H Ur Squamous Epith Cells MANY Squamous H Urine Bacteria Many H Ur Microscopic Review INDICATED Urine Culture Comments NOT INDICATED Nasal Adenovirus (PCR) Nasal B. parapertussis DNA (PCR) Nasal Coronavir 229E PCR Nasal Coronavir HKU1 PCR Nasal Coronavir NL63 PCR Nasal Coronavir OC43 PCR Nasal Enterovir/Rhinovir PCR Nasal Influenza B PCR Nasal Influenza A PCR Nasal Parainfluen 1 PCR Nasal Parainfluen 2 PCR Nasal Parainfluen 3 PCR Nasal Parainfluen 4 PCR Nasal RSV (PCR) Nasal B.pertussis DNA PCR Nasal C.pneumoniae (PCR) Alhaji Human Metapneumo PCR Nasal M.pneumoniae (PCR) Nasal SARS-CoV-2 (PCR) Blood Type A POSITIVE Antibody Screen NEGATIVE Crossmatch IS Only See Detail - Rads (name of study) cxr Radiology: Final report received, EMP read contemporaneously, See rad report PD MEDICAL DECISION MAKING - ED course Complexity details: reviewed old records, reviewed results, re-evaluated patient, considered differential, d/w patient, d/w networks software consultant ED course: Patient is a longstanding history of congestive heart failure and chronic kidney disease. She has a longstanding history of iron deficiency anemia as well. She received a blood transfusion on 09/23. Her prior EGD had gastritis. She is on omeprazole. Her hemoglobin has dropped significantly again. She will need transfusion, diuresis and continued oxygen support. Discussed the case with Dr. Kennedy, hospitalist accept IMPRESSION: 1. Stable cardiomegaly. 2. Unchanged opacification of the right superior hemithorax consistent with chronic right upper lobe atelectasis as seen on prior CTs. Departure - Departure Disposition: 66 [facility] DC/Xfer Clinical Impression: Encephalopathy, Hypoxia Anemia Qualifiers: Anemia type: unspecified type Qualified Code(s): D64.9 - Anemia, unspecified CHF exacerbation Qualifiers: Heart failure type: unspecified Qualified Code(s): I50.9 - Heart failure, unspecified Condition: Stable Discharge Date/Time: 10/11/21 15:13
[2021-10-11 09:07] LABS: BASOPHILS % (AUTO) 0.1 %; HCT - HEMATOCRIT 20.5 % (37.0-47.0); LYMPHOCYTES % (AUTO) 12.1 %; MEAN CORPUSCULAR HEMOGLOBIN 27.9 pg (27.0-31.0); MEAN CORPUSCULAR HGB CONC 27.8 g/dL (32.0-36.0); MEAN CORPUSCULAR VOLUME 100.5 fL (81.0-99.0); MEAN PLATELET VOLUME 9.8 fL (7.9-10.8); MONOCYTES # (AUTO) 0.5 10^3/uL (0.0-1.0); MONOCYTES % (AUTO) 6.2 %; NEUTROPHILS # (AUTO) 6.4 10^3/uL (1.5-6.6); PLT - PLATELET COUNT 254 10^3/uL (130-450); RED BLOOD COUNT 2.04 10^6/uL (4.20-5.40); RED CELL DISTRIBUTION WIDTH 17.4 % (12.0-15.0); WHITE BLOOD COUNT 7.9 x10^3/uL (4.8-10.8)
[2021-10-11 09:10] LABS: HGB - HEMOGLOBIN 5.7 g/dL (12.0-16.0)
[2021-10-11 09:16] LABS: INR 1.3 (0.8-1.2); PT - PROTHROMBIN TIME 14.2 secs (9.9-12.6)
[2021-10-11 09:17] LABS: ALBUMIN/GLOBULIN RATIO 0.9 (1.0-2.2); BILIRUBIN,TOTAL 1.3 mg/dL (0.2-1.0); CALCIUM 7.6 mg/dL (8.5-10.3); CREATININE 1.7 mg/dL (0.4-1.0); POTASSIUM 3.9 mmol/L (3.5-5.0); TOTAL PROTEIN 6.5 g/dL (6.7-8.2)
[2021-10-11] MEDS ORDERED: FUROSEMIDE 100 MG/10 ML VIAL IVP STA (09:17)
[2021-10-11 09:23] LABS: PARTIAL THROMBOPLASTIN TIME 27.8 secs (24.9-33.3)
[2021-10-11 09:50] LABS: BILIRUBIN,URINE NEGATIVE (NEGATIVE); GLUCOSE, URINE (UA) NEGATIVE (NEGATIVE); KETONES,URINE (UA) NEGATIVE (NEGATIVE); LEUKOCYTE ESTERASE, URINE TRACE (NEGATIVE); NITRITE,URINE POSITIVE (NEGATIVE); OCCULT BLOOD,URINE NEGATIVE (NEGATIVE); PROTEIN,URINE TRACE mg/dL (NEGATIVE); UROBILINOGEN,URINE 1 (NORMAL) E.U./dL (NORMAL)
[2021-10-11] MEDS ORDERED: PANTOPRAZOLE 40 MG VIAL IVP STA (09:52)
[2021-10-11 10:02] LABS: CLARITY,URINE SL. CLOUDY (CLEAR)
[2021-10-11 10:03] LABS: RBC,URINE None Seen /HPF (0-5); WBC,URINE >25 /HPF (0-5)
[2021-10-11 10:04] LABS: BACTERIA,URINE Many /HPF (None Seen); SQUAMOUS EPITHELIAL CELL,UR MANY Squamous (<= Few)
[2021-10-11 10:15] LABS: CORONAVIRUS 229E-RESP PCR NOT DETECTED; CORONAVIRUS HKU1-RESP PCR NOT DETECTED; CORONAVIRUS NL63-RESP PCR NOT DETECTED; CORONAVIRUS OC43-RESP PCR NOT DETECTED; HUMAN METAPNEUMOVIRUS NOT DETECTED; INFLUENZA A- RESP PCR PANEL NOT DETECTED; RHINOVIRUS/ENTEROVIRUS NOT DETECTED; SARS-CoV-2 -RESP PCR PANEL NOT DETECTED
[2021-10-11 10:16] LABS: B. PARAPERTUSSIS- RESP PCR PAN NOT DETECTED; B. PERTUSSIS- RESP PCR PANEL NOT DETECTED; C. PNEUMONIAE- RESP PCR PANEL NOT DETECTED; INFLUENZA B - RESP PCR PANEL NOT DETECTED; M. PNEUMONIAE- RESP PCR PANEL NOT DETECTED; PARAINFLUENZA VIRUS 1 NOT DETECTED; PARAINFLUENZA VIRUS 2 NOT DETECTED; PARAINFLUENZA VIRUS 3 NOT DETECTED; PARAINFLUENZA VIRUS 4 NOT DETECTED; RSV- RESP PCR PANEL NOT DETECTED
[2021-10-11] MEDS ORDERED: cefTRIAXone 1 GM VIAL IVP STA (12:54)
[2021-10-11] MEDS ORDERED: ONDANSETRON 4 MG/2 ML VIAL IVP PRN (13:38)
[2021-10-11] MEDS ORDERED: ONDANSETRON ODT 4 MG TABLET TL PRN (13:38)
[2021-10-11] MEDS ORDERED: ACETAMINOPHEN 325 MG TABLET PO PRN (13:38)
[2021-10-11] MEDS ORDERED: SODIUM CHLORIDE FLUSH 0.9% 10 ML SYRINGE IVP PRN (13:38)
[2021-10-11] MEDS: SODIUM CHLORIDE FLUSH 0.9% 10 ML SYRINGE IVP SCH (15:48)
[2021-10-11] MEDS: FUROSEMIDE 40 MG/4 ML VIAL IVP SCH (15:54)
[2021-10-11] MEDS: ATORVASTATIN 40 MG TABLET PO SCH (20:02)
[2021-10-11] MEDS: NICOTINE 14 MG PATCH TOP SCH (20:02)
[2021-10-11] MEDS: GABAPENTIN 300 MG CAPSULE PO SCH (20:02)
--- NOTE | 2021-10-11 20:21 | HISTORY & PHYSICAL EXAMINATION ---
Chief Complaint - Chief Complaint Chief Complaint: altered mental status, hypoxia History of Present Illness - Admitted From Admitted From:: [facility] ED - History Obtained From Records Reviewed: yes History obtained from: ED provider Exam Limitations: patient has no recollection - History of Present Illness HPI Comment/Other: "70-year-old female with a history of sleep apnea, lung cancer, home oxygen dependency, presents to the emergency department after her friend found her difficult to arouse this morning. EMS states that her O2 sat was in the 60s upon their arrival. Unclear if the CPAP machine was on or working. Subjective fever per EMS. Patient denies fever. Initially EMS states that the patient was very confused, but seems to be back to her baseline now. Patient denies any trauma. She states that she is on oral chemotherapy for her lung cancer. No chest pain. Mild shortness of breath. No abdominal pain. No nausea, vomiting, diarrhea. No chest pain or palpitations" The HPI above was obtained from the ED physicians H&P because the patient currently has no recollection of events leading to her presentation to the hospital. At bedside currently she is resting comfortably. She is on 2 L of oxygen via nasal cannula which is her home baseline oxygen requirement. She denies chest pain or dyspnea. She denies abdominal pain, nausea, vomiting, fever or chills. She has +1 lower extremity edema. Her lungs sound coarse with mild rhonchi on auscultation. She was noted to have a hemoglobin of 5.7. BNP 2912. She was presented for admission for blood transfusion and diuresis. History - Past Medical History Cardiovascular: reports: Congestive heart failure, Hypertension, High cholesterol, [place] Respiratory: reports: COPD, Emphysema, Other Neuro: reports: Peripheral neuropathy Endocrine/Autoimmune: reports: Type 2 diabetes, HyPOthyroidism GI: reports: Other MECHANIC DRIVER: reports: None : reports: Incontinence HEENT: reports: Chronic vision loss, Other Psych: reports: Depression, Anxiety, Bipolar disorder Musculoskeletal: reports: Osteoarthritis, Fatigue Derm: reports: None MRSA Hx?: No - Past Surgical History General: reports: EGD Cardiovascular: reports: Coronary stent, Cardiac catheterization HEENT: reports: Tonsil/Adenoidectomy - Family & Social History Family History: Mother: , Sister: Alive and Well, Brother: Alive and Well, Alcoholism, Other family: Alive and Well Family History Comment/Other: Review of prior records revealed that her mother at the age of 94. Her brother from diabetes and alcoholism. Living Situation: With friend(s) Social History Notes: Harini Cuadra informed me that she lives with her friend and Zoie MCRAE. The patient smokes 2 packs a day - POLST Patient has POLST: Yes POLST Status: DNR Meds/Allgy - Home Medications Home Medications: Ambulatory Orders Medication Instructions Recorded Confirmed Levothyroxine [Synthroid] 75 mcg PO DAILY 10/04/18 09/29/21 Zolpidem [Ambien] 10 mg ORAL QPM PRN 04/18/19 09/29/21 Gabapentin 600 mg PO BID 02/06/20 09/29/21 Omeprazole 40 mg PO DAILY 07/23/20 09/29/21 Folic Acid 1 mg PO DAILY 10/08/20 09/29/21 Metoprolol Succinate [Toprol Xl] 25 mg PO DAILY 11/13/20 09/29/21 Ferrous Gluconate 324 mg PO DAILY 05/27/21 09/29/21 HYDROcod/ACETAM 5/325 [[place] 5/325] 1 - 2 tab PO TID PRN 05/27/21 09/29/21 Sotorasib [Lumakras] 960 mg PO DAILY MDD due to start 06/25/21 09/29/21 5/3 Ondansetron Odt [Zofran Odt] 4 mg TL Q6H PRN #30 tab 06/30/21 09/29/21 Aspirin Chewable [[place] 81 mg PO DAILY #30 tablet 07/18/21 09/29/21 Aspirin] Simvastatin [Zocor] 80 mg PO HS #30 tablet 07/18/21 09/29/21 Triamcinolone Acetonide 1 applic TOP BID 07/25/21 09/29/21 Calcium Carbonate [Tums (Calcium 500 mg PO BID #60 tablet 07/29/21 09/29/21 Carbonate 500mg)] Ipratropium/Albuterol [Duoneb] 3 ml INH Q4HR PRN #100 neb 07/29/21 09/29/21 Escitalopram [Lexapro] 20 mg PO DAILY 08/04/21 09/29/21 Furosemide [Lasix] 40 mg PO 0800,1400 #30 tab 10/06/21 - Allergies Allergies/Adverse Reactions: Allergies Allergy/AdvReac Type Severity Reaction Status Date / Time No Known Drug Allergies Allergy Verified 09/29/21 16:15 Review of Systems - Constitutional Constitutional: denies: Fever, Chills - Eyes Eyes: denies: Pain - Ears, Nose & Throat Ears, Nose & Throat: denies: Vertigo, Sore throat - Cardiovascular Cariovascular: reports: Edema. denies: Irregular heart rate, Chest pain - Respiratory Respiratory: reports: SOB at rest, SOB with exertion - Gastrointestinal Gastrointestinal: denies: Abdominal pain, Abdominal distention, Nausea, Vomiting, Reflux/heartburn - Genitourinary Genitourinary: denies: Dysuria, Frequency, Urgency, Hematuria - Musculoskeletal Musculoskeletal: denies: Muscle pain, Back pain, Muscle aches - Integumentary Integumentary: denies: Rash, Pruritis, Lesions, Dryness - Neurological Neurological: reports: General weakness. denies: Headache, Dizziness - Psychiatric Psychiatric: denies: Depression, Anxiety, Suicidal - Endocrine Endocrine: denies: Polyuria, Polydypsia - Hematologic/Lymphatic Hematologic/Lymphatic: denies: Anemia, Bruising, Petechiae Prior Level of Functionality: Patient is dependent for activities of daily living Exam - Vital Signs Vital Signs: Vital Signs x48h Temp Pulse Pulse Pulse Resp BP BP 10/11/21 19:08 36.8 C 81 24 116/57 L 10/11/21 19:01 36.8 C 81 19 116/57 L 10/11/21 19:00 36.8 C 81 19 116/57 L 10/11/21 16:25 36.4 C L 84 21 115/54 L 10/11/21 16:15 36.8 C 84 20 114/57 L 10/11/21 16:04 36.8 C 86 21 109/54 L 10/11/21 15:50 89 109/54 L 10/11/21 15:10 36.6 C 90 18 101/56 L 10/11/21 14:25 97 20 102/60 10/11/21 13:38 98.9 C H 96 24 115/56 L 10/11/21 12:58 97.6 C H 88 20 99/57 L 10/11/21 12:44 36.8 C 90 23 96/50 L 10/11/21 12:43 36.8 C 90 23 96/50 L 10/11/21 12:35 37.4 C 89 26 H 92/55 L 10/11/21 12:28 37.4 C 89 26 H 92/55 L Pulse Ox 10/11/21 19:08 98 10/11/21 19:01 98 10/11/21 19:00 98 10/11/21 16:25 96 10/11/21 16:15 10/11/21 16:04 100 10/11/21 15:50 10/11/21 15:10 91 L 10/11/21 14:25 89 L 10/11/21 13:38 85 L 10/11/21 12:58 92 10/11/21 12:44 96 10/11/21 12:43 96 10/11/21 12:35 10/11/21 12:28 97 - Physical Exam General Appearance: positive: No acute distress, Alert Eyes Bilateral: positive: PERRL, EOMI ENT: positive: No signs of dehydration Neck: positive: No JVD, Trachea midline Respiratory: positive: Chest non-tender, Rhonchi, Other (coarse breath sounds) Cardiovascular: positive: Regular rate & rhythm, No murmur Abdomen: positive: Non-tender, No organomegaly, Nml bowel sounds, No distention. negative: Guarding, Rebound Back: positive: Nml inspection Skin: positive: Color nml, No rash, Warm, Dry Extremities: positive: Non-tender, Nml appearance, Pedal edema (+1) Neurologic/Psychiatric: positive: Oriented x3, Mood/affect nml Conclusion/Plan - Problem List (1) Acute respiratory failure with hypoxia Conclusion/Plan: Likely multifactorial. Most acutely suspected to be secondary to home BiPAP malfunctioning. Also acutely due to anemia and CHF exacerbation. When EMS arrived patient's oxygen saturation was 60%. She is currently breathing comfortably on 2 L of oxygen with oxygen saturation 98%. Hemoglobin was 5.7. Anemia likely related to patient's metastatic lung cancer. Patient was transfused 2 units of packed red blood cells. BNP today was 2912. At discharge on 10/24 BNP was 1580. Lasix 60 mg IV twice daily ordered. Patient was given Lasix 100 mg IV x1 in the ED this morning. (2) Anemia Conclusion/Plan: Hemoglobin was 5.7. Anemia likely related to patient's metastatic lung cancer. Patient was transfused 2 units of packed red blood cells. Qualifiers: Anemia type: unspecified type Qualified Code(s): D64.9 - Anemia, unspecified (3) Diet-controlled type 2 diabetes mellitus Conclusion/Plan: Accu checks qACHS (4) Chronic kidney disease Conclusion/Plan: Creatinine is 1.7 with estimated GFR of 30. On 10/06/2021 creatinine was 1.3. Acute worsening in renal functions likely secondary to CHF exacerbation. Qualifiers: Chronic kidney disease stage: stage 3 (moderate) (5) Metastatic non-small cell lung cancer Conclusion/Plan: Patient is on Lumakras. It is suspected this could also be contributing to her anemia. (6) Tobacco abuse Conclusion/Plan: Nicotine patch topical daily ordered. (7) Hypothyroidism Conclusion/Plan: Levothyroxine 75 mcg p.o. daily AC. (8) Acute on chronic diastolic heart failure Conclusion/Plan: BNP today was 2912. At discharge on 10/24 BNP was 1580. Lasix 60 mg IV twice daily ordered. Patient was given Lasix 100 mg IV x1 in the ED this morning. On metoprolol succinate 25 mg p.o. daily. Low-sodium diet ordered. (9) Hyperlipidemia Conclusion/Plan: Atorvastatin 40 mg p.o. every afternoon (10) Depression Conclusion/Plan: Lexapro 20 mg p.o. daily - Lab Results Fish Bones: 10/11/21 21:37 10/11/21 08:42 Core Measures - Anticipated LOS I expect patient to be DC'd or transferred within 96 hours.: Yes - DVT/VTE - Prophylaxis VTE/DVT Device ordered at admit?: Yes VTE/DVT Prophylaxis med ordered at admit?: Yes
[2021-10-11 21:41] LABS: HCT - HEMATOCRIT 24.5 % (37.0-47.0); HGB - HEMOGLOBIN 7.4 g/dL (12.0-16.0)
[2021-10-12] MEDS: SODIUM CHLORIDE FLUSH 0.9% 10 ML SYRINGE IVP SCH ×4 (00:13→23:41)
[2021-10-12 05:48] LABS: BASOPHILS % (AUTO) 0.1 %; LYMPHOCYTES # (AUTO) 0.9 10^3/uL (1.5-3.5); LYMPHOCYTES % (AUTO) 12.7 %; MEAN CORPUSCULAR HEMOGLOBIN 28.3 pg (27.0-31.0); MEAN CORPUSCULAR HGB CONC 29.2 g/dL (32.0-36.0); MEAN CORPUSCULAR VOLUME 97.2 fL (81.0-99.0); MEAN PLATELET VOLUME 9.4 fL (7.9-10.8); MONOCYTES # (AUTO) 0.6 10^3/uL (0.0-1.0); NEUTROPHILS # (AUTO) 5.2 10^3/uL (1.5-6.6); NEUTROPHILS % (AUTO) 77.5 %; PLT - PLATELET COUNT 224 10^3/uL (130-450); RED BLOOD COUNT 2.47 10^6/uL (4.20-5.40); RED CELL DISTRIBUTION WIDTH 18.6 % (12.0-15.0); WHITE BLOOD COUNT 6.8 x10^3/uL (4.8-10.8)
[2021-10-12 06:02] LABS: CALCIUM 7.7 mg/dL (8.5-10.3); CREATININE 1.5 mg/dL (0.4-1.0); POTASSIUM 3.3 mmol/L (3.5-5.0)
[2021-10-12] MEDS: LEVOTHYROXINE 75 MCG TABLET PO SCH (06:12)
[2021-10-12] MEDS: FUROSEMIDE 40 MG/4 ML VIAL IVP SCH ×2 (06:12→13:35)
[2021-10-12] MEDS ORDERED: POTASSIUM CHLORIDE 20 MEQ TABLET PO ONE (07:20)
[2021-10-12] MEDS: GABAPENTIN 300 MG CAPSULE PO SCH ×2 (10:04→20:57)
[2021-10-12] MEDS: HYDROcod/ACETAM 5/325 MG TABLET PO PRN ×2 (10:04→19:04)
[2021-10-12] MEDS: METOPROLOL SUCCINATE 25 MG TABLET PO SCH (10:04)
[2021-10-12] MEDS: ESCITALOPRAM 10 MG TABLET PO SCH (10:05)
[2021-10-12] MEDS: NICOTINE 14 MG PATCH TOP SCH (10:07)
--- NOTE | 2021-10-12 12:14 | PHARMACY PROGRESS NOTE ---
- Best Possible Medication History Admit Date and Time: 10/12/21 1001 Processed by: Pharmacy Medication History completed: Yes Patient Interview: Pt unable to participate Secondary Source(s): Physician records, Insurance records, Previous admit rec ords As the person ultimately responsible for medication therapy, providers are able to order a medication from an existing home medication list in [facility] via the "Reconcile Routine" prior to Confirmation of that medication by technical support assistant. Such practice is discouraged except when the physician, in their clinical judgment, deems that a medical need exists for a medication without regard to previous use.
--- NOTE | 2021-10-12 13:41 | PROVIDER PROGRESS NOTE ---
Subjective - Prog Note Date Prog Note Date: 10/12/21 - Subjective Subjective: She feels much better today. She cannot recall the events of what happened yesterday. She states she is little dyspneic but this is her baseline and does not feel worse than usual. She is not sure why she is anemic she has not noticed any bleeding and has been taking oral iron at home. She is not sure if she would want further work-up of the anemia if she were found to have something such as a GI bleed. She states no matter what, she will go home tomorrow as she wants to celebrate her birthday the following day as all of her family is coming to visit and this is all she is looking forward to as she knows she is declining due to the cancer. Current Medications - Current Medications Current Medications: Active Medications Acetaminophen (Acetaminophen 325 Mg Tablet) 650 mg PO Q4HR PRN PRN Reason: Pain 1 to 4, or Fever Hydrocodone Bitart/Acetaminophen (Hydrocod/Acetam 5/325 Mg Tablet) 1 tab PO TID PRN PRN Reason: PAIN Last Admin: 10/12/21 10:04 Dose: 1 tab Atorvastatin Calcium (Atorvastatin 40 Mg Tablet) 40 mg PO QPM [facility] Last Admin: 10/11/21 20:02 Dose: 40 mg Escitalopram Oxalate (Escitalopram 10 Mg Tablet) 20 mg PO DAILY [facility] Last Admin: 10/12/21 10:05 Dose: 20 mg Furosemide (Furosemide 40 Mg/4 Ml Vial) 60 mg IVP BIDDIURETIC [facility] Last Admin: 10/12/21 13:35 Dose: 60 mg Gabapentin (Gabapentin 300 Mg Capsule) 600 mg PO BID [facility] Last Admin: 10/12/21 10:04 Dose: 600 mg Levothyroxine Sodium (Levothyroxine 75 Mcg Tablet) 75 mcg PO QDAC [facility] Last Admin: 10/12/21 06:12 Dose: 75 mcg Metoprolol Succinate (Metoprolol Succinate 25 Mg Tablet) 25 mg PO DAILY [facility] Last Admin: 10/12/21 10:04 Dose: 25 mg Nicotine (Nicotine 14 Mg Patch) 1 patch TOP DAILY [facility] Last Admin: 10/12/21 10:07 Dose: 1 patch Ondansetron HCl (Ondansetron Odt 4 Mg Tablet) 4 mg TL Q6HR PRN PRN Reason: Nausea / Vomiting Ondansetron HCl (Ondansetron 4 Mg/2 Ml Vial) 4 mg IVP Q6HR PRN PRN Reason: Nausea / Vomiting Sodium Chloride (Sodium Chloride Flush 0.9% 10 Ml Syringe) 10 ml IVP PRN PRN PRN Reason: NEEDED PER PROVIDER ORDERS Last Admin: 10/12/21 13:35 Dose: 10 ml Sodium Chloride (Sodium Chloride Flush 0.9% 10 Ml Syringe) 10 ml IVP 0100,0900,1700 [facility] Last Admin: 10/12/21 10:08 Dose: 10 ml Levothyroxine [Synthroid] 75 mcg PO QDAC 10/04/18 Zolpidem [Ambien] 10 mg ORAL QPM PRN 04/18/19 Gabapentin 600 mg PO BID 02/06/20 Omeprazole 40 mg PO DAILY 07/23/20 Folic Acid 1 mg PO DAILY 10/08/20 Metoprolol Succinate [Toprol Xl] 25 mg PO DAILY 11/13/20 Ferrous Gluconate 324 mg PO DAILY 05/27/21 HYDROcod/ACETAM 5/325 [[place] 5/325] 1 - 2 tab PO TID PRN 05/27/21 Sotorasib [Lumakras] 960 mg PO DAILY 06/25/21 Triamcinolone Acetonide 1 applic TOP BID 07/25/21 Escitalopram [Lexapro] 20 mg PO DAILY 08/04/21 Furosemide [Lasix] 60 mg PO 0800,1400 10/12/21 Objective - Vital Signs/Intake & Output Reviewed Vital Signs: Yes Vital Signs: Vital Signs x48h Temp Pulse Resp BP Pulse Ox 10/12/21 12:53 36.9 C 93 20 111/53 L 95 10/12/21 11:30 37.2 C 87 17 106/83 H 95 10/12/21 11:20 37.2 C 87 17 106/83 H 95 10/12/21 11:03 37.4 C 85 17 113/51 L 94 10/12/21 11:01 37.4 C 85 17 113/51 L 94 10/12/21 11:00 37.4 C 85 17 113/51 L 94 10/12/21 07:43 37.5 C 90 20 111/52 L 91 L 10/12/21 05:50 37.1 C 97 20 119/49 L 94 Intake & Output: Intake & Output 10/09/21 10/10/21 10/11/21 10/12/21 23:59 23:59 23:59 23:59 Intake Total 1330 780 Output Total 500 1250 Balance 830 -470 - Objective General Appearance: positive: No acute distress, Alert Eyes Bilateral: positive: Normal inspection ENT: positive: ENT inspection nml, Other (Nasal cannula in place.) Neck: positive: Nml inspection Respiratory: positive: No respiratory distress, Wheezes, Rales. negative: Rhonchi Cardiovascular: positive: Regular rate & rhythm. negative: Tachycardia Abdomen: positive: Non-tender, No distention. negative: Tenderness Skin: positive: Warm, Dry Extremities: positive: Pedal edema (+2 edema in bilateral lower extremities.) Neurologic/Psychiatric: negative: Disoriented to person, Disoriented to place - Lab Results Fish Bones: 10/12/21 05:07 10/12/21 05:07 Other Labs: Lab Results x24hrs 10/12/21 10/12/21 10/12/21 Range/Units 05:07 05:07 05:07 WBC 6.8 (4.8-10.8) x10^3/uL RBC 2.47 L (4.20-5.40) 10^6/uL Hgb 7.0 L* (12.0-16.0) g/dL Hct 24.0 L (37.0-47.0) % MCV 97.2 (81.0-99.0) fL MCH 28.3 (27.0-31.0) pg MCHC 29.2 L (32.0-36.0) g/dL RDW 18.6 H (12.0-15.0) % Plt Count 224 (130-450) 10^3/uL MPV 9.4 (7.9-10.8) fL Neut # (Auto) 5.2 (1.5-6.6) 10^3/uL Lymph # (Auto) 0.9 L (1.5-3.5) 10^3/uL [place] # (Auto) 0.6 (0.0-1.0) 10^3/uL Eos # (Auto) 0.0 (0.0-0.7) 10^3/uL Baso # (Auto) 0.0 (0.0-0.1) 10^3/uL Absolute Nucleated RBC 0.00 x10^3/uL Nucleated RBC % 0.0 /100WBC Sodium 135 (135-145) mmol/L Potassium 3.3 L (3.5-5.0) mmol/L Chloride 88 L (101-111) mmol/L Carbon Dioxide 37 H (21-32) mmol/L Anion Gap 10.0 (6-13) BUN 53 H (6-20) mg/dL Creatinine 1.5 H (0.4-1.0) mg/dL Estimated GFR (MDRD) 35 L (>89) Glucose 123 H (70-100) mg/dL Calcium 7.7 L (8.5-10.3) mg/dL B-Natriuretic Peptide 1916 H (5-100) pg/mL Blood Type Antibody Screen Crossmatch IS Only 10/11/21 10/11/21 Range/Units 21:37 09:30 WBC (4.8-10.8) x10^3/uL RBC (4.20-5.40) 10^6/uL Hgb 7.4 L (12.0-16.0) g/dL Hct 24.5 L (37.0-47.0) % MCV (81.0-99.0) fL MCH (27.0-31.0) pg MCHC (32.0-36.0) g/dL RDW (12.0-15.0) % Plt Count (130-450) 10^3/uL MPV (7.9-10.8) fL Neut # (Auto) (1.5-6.6) 10^3/uL Lymph # (Auto) (1.5-3.5) 10^3/uL [place] # (Auto) (0.0-1.0) 10^3/uL Eos # (Auto) (0.0-0.7) 10^3/uL Baso # (Auto) (0.0-0.1) 10^3/uL Absolute Nucleated RBC x10^3/uL Nucleated RBC % /100WBC Sodium (135-145) mmol/L Potassium (3.5-5.0) mmol/L Chloride (101-111) mmol/L Carbon Dioxide (21-32) mmol/L Anion Gap (6-13) BUN (6-20) mg/dL Creatinine (0.4-1.0) mg/dL Estimated GFR (MDRD) (>89) Glucose (70-100) mg/dL Calcium (8.5-10.3) mg/dL B-Natriuretic Peptide (5-100) pg/mL Blood Type A POSITIVE Antibody Screen NEGATIVE Crossmatch IS Only See Detail Assessment/Plan - Problem List (1) Acute and chronic respiratory failure with hypoxia Impression: This was likely secondary to heart failure. She is now down to 2 L of oxygen which is her baseline. It appears she is on oxygen due to her lung cancer and history of diastolic heart failure. She does not have BiPAP at home due to her obesity hypoventilation syndrome. Plan to diurese her with IV Lasix especially given she is receiving a unit of packed red blood cell and she appears quite edematous. We will switch to oral diuretics on discharge. She will continue with BiPAP at home. (2) Acute on chronic diastolic heart failure Impression: Although her x-ray did not show any worsening edema, her BNP had doubled compared to discharge and she is quite edematous. She is also wheezing which I suspect related to heart failure. We will continue her on Lasix 60 mg IV twice daily with another dose given after her transfusion this afternoon. She was be discharged home tomorrow and the plan will be to increase her Lasix to 80 mg p.o. twice daily as 60 mg twice daily was not enough. (3) Anemia Impression: This anemia is likely multifactorial and secondary to her lung cancer, sotorasib, and potentially blood loss anemia. We will hold her home sotorasib. She was transfused 2 units of packed red blood cell yesterday but her hemoglobin is only 7.0 this morning. We will transfuse another unit of packed red blood cell and give her Lasix due to the heart failure. We will check her stool for occult blood. We will continue her on oral PPI. She did have an EGD last year which showed gastritis with old blood. Hold her aspirin and will likely discontinue this on discharge. If her stool is positive for occult blood then we will discuss again with her if she would want endoscopy. Qualifiers: Anemia type: unspecified type Qualified Code(s): D64.9 - Anemia, unspecified (4) Acute kidney injury superimposed on CKD Impression: He has IAN on CKD likely due to heart failure. Her creatinine was 1.7 on admission and today it is down to 1.5. Her baseline is 1.3. She likely has CKD due to her diabetes. We will continue to diurese her given the heart failure. Continue to monitor renal function closely. (5) Lung cancer Impression: She has metastatic non-small cell lung cancer and is on sotorasib. This may be contributing to her anemia. The patient informed today that she would likely not continue with therapy due to potential side effects and just her overall decline. I will defer this to her, palliative care, and her oncologist. (6) COPD (chronic obstructive pulmonary disease) Impression: She has a little wheezing so we will place her on DuoNeb 4 times daily albuterol as needed. The wheezing is likely due to heart failure rather than COPD exacerbation. (7) Diet-controlled type 2 diabetes mellitus Impression: Continue carb controlled diet. (8) Hypothyroidism Impression: Continue Synthroid.
[2021-10-12] MEDS ORDERED: ALBUTEROL NEB 2.5 MG/3 ML INH PRN (13:49)
[2021-10-12] MEDS: PANTOPRAZOLE 40 MG TABLET PO SCH (14:49)
[2021-10-12] MEDS: IPRATROPIUM/ALBUTEROL 3 ML NEB INH SCH (19:53)
[2021-10-12] MEDS: ATORVASTATIN 40 MG TABLET PO SCH (20:58)
[2021-10-13 05:25] LABS: BASOPHILS % (AUTO) 0.2 %; HCT - HEMATOCRIT 28.1 % (37.0-47.0); HGB - HEMOGLOBIN 8.2 g/dL (12.0-16.0); LYMPHOCYTES % (AUTO) 14.7 %; MEAN CORPUSCULAR HEMOGLOBIN 28.1 pg (27.0-31.0); MEAN CORPUSCULAR HGB CONC 29.2 g/dL (32.0-36.0); MEAN CORPUSCULAR VOLUME 96.2 fL (81.0-99.0); MEAN PLATELET VOLUME 9.7 fL (7.9-10.8); MONOCYTES # (AUTO) 0.5 10^3/uL (0.0-1.0); MONOCYTES % (AUTO) 8.1 %; NEUTROPHILS % (AUTO) 76.4 %; PLT - PLATELET COUNT 211 10^3/uL (130-450); RED BLOOD COUNT 2.92 10^6/uL (4.20-5.40); WHITE BLOOD COUNT 6.5 x10^3/uL (4.8-10.8)
[2021-10-13 05:36] LABS: CREATININE 1.5 mg/dL (0.4-1.0); POTASSIUM 3.3 mmol/L (3.5-5.0)
[2021-10-13] MEDS: PANTOPRAZOLE 40 MG TABLET PO SCH (05:58)
[2021-10-13] MEDS: LEVOTHYROXINE 75 MCG TABLET PO SCH (05:59)
[2021-10-13] MEDS: FUROSEMIDE 40 MG/4 ML VIAL IVP SCH (05:59)
[2021-10-13] MEDS ORDERED: POTASSIUM CHLORIDE 20 MEQ TABLET PO ONE (07:44)
[2021-10-13] MEDS: IPRATROPIUM/ALBUTEROL 3 ML NEB INH SCH ×3 (08:01→12:03)
--- NOTE | 2021-10-13 08:12 | Discharge Plan ---
Discharge Plan Problem Reviewed?: Yes Disposition: Home, Self Care Condition: Fair Prescriptions: Potassium Chloride [K-Dur] 20 meq PO DAILYWM #30 tablet Diet: Diabetic Activity Restrictions: Activity as Tolerated Assistance Devices: [facility] Concerns: You were admitted to the hospital because of anemia and heart failure. We gave you IV Lasix which helped remove some of the excess fluid in your lungs. We also gave you 3 units of blood because of the anemia. We found you are likely losing blood in your stool. You did not want an endoscopy so we recommend taking Protonix once a day and avoiding NSAIDs/ibuprofen. We did give you IV iron to help with the anemia given you are likely iron deficient. Plan of Treatment: Please take Lasix 80 mg twice a day as 60 mg is not enough to keep the fluid off of your lungs. You may continue with the oral iron. Continue omeprazole once a day. Please avoid all NSAIDs such as aspirin, ibuprofen, Advil. We will be discontinuing your aspirin on discharge. I have prescribed you potassium to take once a day as you lose potassium with the diuretics. Please continue with your previous oxygen use. Please continue to use the BiPAP at night. The Lumakras may be causing your anemia as well as the edema and you should discuss with your oncologist regarding the need to continue this especially if you will be transitioning to hospice. Care Goals: The goal is to prevent future episodes of shortness of breath and anemia and to manage your pain best we can. Assessment: Patient expressed understanding of the treatment plan. Additional Instructions or Follow Up instructions: Please follow-up with Harini Cuadra on an outpatient basis. She can help you transition to hospice as that is your goal. No Smoking: If you smoke, Please STOP! Call for help. Follow-up with: Harini Cuadra ARNP [Provider Admit Priv/Credential] -
--- NOTE | 2021-10-13 08:33 | DISCHARGE SUMMARY ---
Discharge Summary Admit Date: 10/11/21 Discharge Date: 10/13/21 Discharging Provider: Emiliano Kennedy Code Status: Do Not Attempt Resuscitation Condition at Discharge: Fair Discharge Disposition: 01 Home, Self Care - DIAGNOSES Admission Diagnoses: Acute respiratory failure with hypoxia Anemia Diet-controlled diabetes mellitus CKD Metastatic non-small cell lung cancer Tobacco abuse Hypothyroidism Acute on chronic diastolic heart failure Hyperlipidemia Depression Discharge Diagnoses with Status of Each Condition: Acute and chronic respiratory failure with hypoxia - resolved. Acute on chronic diastolic heart failure - resolved. Anemia - improved. IAN on CKD - resolved. Lung cancer - stable. Heme positive stool - ongoing. COPD - stable. Type 2 diabetes mellitus - stable. Hypothyroidism - stable. - HPI History of Present Illness: "70-year-old female with a history of sleep apnea, lung cancer, home oxygen dependency, presents to the emergency department after her friend found her difficult to arouse this morning. EMS states that her O2 sat was in the 60s upon their arrival. Unclear if the CPAP machine was on or working. Subjective fever per EMS. Patient denies fever. Initially EMS states that the patient was very confused, but seems to be back to her baseline now. Patient denies any trauma. She states that she is on oral chemotherapy for her lung cancer. No chest pain. Mild shortness of breath. No abdominal pain. No nausea, vomiting, diarrhea. No chest pain or palpitations" The HPI above was obtained from the ED physicians H&P because the patient currently has no recollection of events leading to her presentation to the hospital. At bedside currently she is resting comfortably. She is on 2 L of oxygen via nasal cannula which is her home baseline oxygen requirement. She denies chest pain or dyspnea. She denies abdominal pain, nausea, vomiting, fever or chills. She has +1 lower extremity edema. Her lungs sound coarse with mild rhonchi on auscultation. She was noted to have a hemoglobin of 5.7. BNP 2912. She was presented for admission for blood transfusion and diuresis. - HOSPITAL COURSE Hospital Course: She was admitted to the floor for acute on chronic diastolic heart failure and acute on chronic anemia. She was diuresed with Lasix 60 mg IV twice daily with excellent diuresis and she returned to her baseline 2 L of oxygen. Her BNP was also trending down. She received a total of 3 units of packed red blood cell here for her anemia. Her stool was heme positive but she declined an EGD given and she understands her prognosis overall is poor given her lung cancer and her goal is to just go home for her birthday tomorrow. I did discuss with her that we will discontinue her aspirin onto discharge and she should continue the omeprazole. She does appear to have a history of iron deficiency and so we gave her IV iron given the blood loss and the fact that she is already on oral iron which appears to not be sufficient. She was continued on her home oxygen on discharge. We did increase her home Lasix to 80 mg twice daily instead of 60 mg twice daily given the heart failure. We also prescribed her potassium. The patient expressed to me today that she would want to transition to hospice after she celebrate her birthday democrat tomorrow with her family. I did speak with Harini Cuadra of palliative care to inform her of the patient's thoughts. She will be following up with the patient on outpatient basis. - ALLERGIES Allergies/Adverse Reactions: Allergies Allergy/AdvReac Type Severity Reaction Status Date / Time No Known Drug Allergies Allergy Verified 09/29/21 16:15 - MEDICATIONS Home Medications: Ambulatory Orders Medication Instructions Recorded Confirmed Levothyroxine [Synthroid] 75 mcg PO QDAC 10/04/18 10/12/21 Zolpidem [Ambien] 10 mg ORAL QPM PRN 04/18/19 10/12/21 Gabapentin 600 mg PO BID 02/06/20 10/12/21 Omeprazole 40 mg PO DAILY 07/23/20 10/12/21 Folic Acid 1 mg PO DAILY 10/08/20 10/12/21 Metoprolol Succinate [Toprol Xl] 25 mg PO DAILY 11/13/20 10/12/21 Ferrous Gluconate 324 mg PO DAILY 05/27/21 10/12/21 HYDROcod/ACETAM 5/325 [[place] 5/325] 1 - 2 tab PO TID PRN 05/27/21 10/12/21 Sotorasib [Lumakras] 960 mg PO DAILY 06/25/21 10/12/21 Ondansetron Odt [Zofran Odt] 4 mg TL Q6H PRN #30 tab 06/30/21 10/12/21 Simvastatin [Zocor] 80 mg PO HS #30 tablet 07/18/21 10/12/21 Triamcinolone Acetonide 1 applic TOP BID 07/25/21 10/12/21 Calcium Carbonate [Tums (Calcium 500 mg PO BID #60 tablet 07/29/21 10/12/21 Carbonate 500mg)] Ipratropium/Albuterol [Duoneb] 3 ml INH Q4HR PRN #100 neb 07/29/21 10/12/21 Escitalopram [Lexapro] 20 mg PO DAILY 08/04/21 10/12/21 Furosemide [Lasix] 80 mg PO 0800,1400 #0 10/13/21 10/12/21 Potassium Chloride [K-Dur] 20 meq PO DAILYWM #30 tablet 10/13/21 - PHYSICAL EXAM AT DISCHARGE General Appearance: positive: No acute distress, Alert Eyes Bilateral: positive: Normal inspection ENT: positive: ENT inspection nml, Other (Nasal cannula in place.) Neck: positive: Other (Large neck.) Respiratory: positive: No respiratory distress, Wheezes (Faint expiratory wheezes.) Cardiovascular: positive: Regular rate & rhythm, No murmur Abdomen: positive: Non-tender, No distention. negative: Tenderness Skin: positive: Warm, Dry Extremities: positive: Pedal edema (+1 to +2 edema in bilateral lower extremities. Slightly incrased in RLE compared to LLE.) Neurologic/Psychiatric: negative: Disoriented to person, Disoriented to place Physical Exam Other/Comments: Vital Signs - 24 hr 10/12/21 10/12/21 10/12/21 19:53 20:48 22:00 Temperature 37.3 C Heart Rate 88 90 Heart Rate [ 95 Brachial] Respiratory 18 18 Rate Blood Pressure 113/45 L [Right Brachial artery] O2 Saturation 94 10/12/21 10/13/21 10/13/21 23:42 02:00 05:00 Temperature 36.6 C Heart Rate 95 Heart Rate [ 77 63 Brachial] Respiratory 21 18 Rate Blood Pressure 122/52 L 128/54 L [Right Brachial artery] O2 Saturation 99 93 10/13/21 10/13/21 10/13/21 06:40 08:03 09:00 Temperature 36.9 C Heart Rate 104 H Heart Rate [ 86 91 Brachial] Respiratory 18 22 Rate Blood Pressure 117/48 L 112/96 H [Right Brachial artery] O2 Saturation 89 L 10/13/21 12:20 Temperature 36.6 C Heart Rate Heart Rate [ 75 Brachial] Respiratory 24 Rate Blood Pressure 115/60 [Right Brachial artery] O2 Saturation 99 Oxygen O2 Source Nasal cannula Oxygen Flow Rate 2 - LABS Result Diagrams: 10/13/21 04:57 10/13/21 04:57 - DIAGNOSTIC IMAGING Diagnostic Imaging Results: Final report reviewed - FOLLOW UP Follow Up: She will be following up with Harini Cuadra of palliative care this week to discuss transitioning to hospice. - TIME SPENT Time Spent in Discharge (Minutes): 32
[2021-10-13] MEDS: NICOTINE 14 MG PATCH TOP SCH (09:03)
[2021-10-13] MEDS: ESCITALOPRAM 10 MG TABLET PO SCH (09:03)
[2021-10-13] MEDS: GABAPENTIN 300 MG CAPSULE PO SCH (09:03)
[2021-10-13] MEDS: METOPROLOL SUCCINATE 25 MG TABLET PO SCH (09:04)
[2021-10-13] MEDS: SODIUM CHLORIDE FLUSH 0.9% 10 ML SYRINGE IVP SCH (09:04)
[2021-10-13] MEDS ORDERED: IRON DEXTRAN 1,000 MG in SODIUM CHLORIDE 0.9% 250 ML IV ONE (09:30)
[2021-10-13 12:49] VITALS: BP 115/60
[2021-10-14] MEDS ORDERED: POTASSIUM CHLORIDE 20 MEQ TABLET PO SCH (08:00)
== END 2021-10-13 12:45 | disposition home or self-care (01) | DRG 291 ==
LOC: EDUNIT# → ED 07:54 → MS2 13:38 → OBSVTOIN 10-12 10:01
PROVIDERS: ADMIT Internal Medicine; ATTEND Internal Medicine
PROC: 30233N1 Transfusion of Nonautologous Red Blood Cells into Peripheral Vein, Percutaneous Approach (ICD-10-PCS; principal; 2021-10-12)
DX: I13.0 Hypertensive heart and chronic kidney disease with heart failure and stage 1 through stage 4 chronic kidney disease, or unspecified chronic kidney disease (principal); J96.01 Acute respiratory failure with hypoxia; I50.33 Acute on chronic diastolic (congestive) heart failure; N17.9 Acute kidney failure, unspecified; C34.90 Malignant neoplasm of unspecified part of unspecified bronchus or lung; D64.9 Anemia, unspecified; C79.9 Secondary malignant neoplasm of unspecified site; D63.1 Anemia in chronic kidney disease; N18.30 Chronic kidney disease, stage 3 unspecified; J43.9 Emphysema, unspecified; E11.22 Type 2 diabetes mellitus with diabetic chronic kidney disease; E03.9 Hypothyroidism, unspecified; G47.30 Sleep apnea, unspecified; E78.00 Pure hypercholesterolemia, unspecified; I25.2 Old myocardial infarction; F32.A Depression, unspecified; R05.9 Cough, unspecified; Z20.822 Contact with and (suspected) exposure to COVID-19; E11.42 Type 2 diabetes mellitus with diabetic polyneuropathy; R32 Unspecified urinary incontinence; H54.7 Unspecified visual loss; F31.9 Bipolar disorder, unspecified; F41.9 Anxiety disorder, unspecified; M19.90 Unspecified osteoarthritis, unspecified site; F17.200 Nicotine dependence, unspecified, uncomplicated; Z79.82 Long term (current) use of aspirin; Z79.890 Hormone replacement therapy; Z79.899 Other long term (current) drug therapy; Z81.1 Family history of alcohol abuse and dependence; Z95.5 Presence of coronary angioplasty implant and graft; Z99.81 Dependence on supplemental oxygen
CPT/HCPCS: 36415; 36430; 51701; 71045; 80048; 80053; 81001; 82272; 83605; 83690; 83880; 85014; 85018; 85025; 85610; 85730; 86850; 86900; 86901; 86920; 87040; 87633; 94640; 94660; 96374; 96375; 99283; 99285; A9270; J1750; J1940; P9016; 81003; 87086